=== PATIENT | female | born 1990 | race African-American/Black ===

== ENCOUNTER 2022-06-17 01:48 | Emergency (ER) | payer SELFPAY ==
--- OUTSIDE RECORDS SUMMARY | 2022-06-17 02:41 | XMS REPORT | Continuity of Care Document ---
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 mg tablet 00 :00 total) by mouth 2 (two) times a day. 500 mg twice a day No known 2020-0 No No known [facility] medications 07-06 medication He alth 13:04: s 42 No known 2020-0 No No known [facility] 07-06 medication [facility] alth 13:04: s 42 No known 2020-0 No No known [facility] 07-06 medication [facility] alth 13:04: s 42 No known 2020-0 No No known [facility] 07-06 medication [facility] alth 13:04: s 42 No known 2020-0 No No known [facility] 07-06 medication [facility] alth 13:04: s 42 No known 2020-0 No No known [facility] medications 07-06 medication He alth 13:04: s 42 methylPREDN 2020-0 Yes 3040 40mg [facility] ISolone 07-06 Health acetate 05:00: (DEPO-Medro 00 l) injection 40 mg methylPREDN 2020-0 Yes 3040 40mg [facility] ISolone 07-06 Health acetate 05:00: (DEPO-Medro 00 l) injection 40 mg levETIRAcet 2020-0 Yes 500 mg [facility] am (Keppra) 06-26 twice a Healt [facility] 1000 MG 00:00: day tablet 00 levETIRAcet 2020-0 2021- No 500 mg [facility] am (Keppra) 06-26-15 twice a Heal th 1000 MG 00:00: 00:00 day tablet 00 :00 lisinopril Yes 40mg QD Take 40 mg U T 40 MG 7-08 by mouth 1 Health tablet 00:00: (one) time 00 each day. lisinopril Yes 40mg QD Take 40 mg U T 40 MG 7-08 by mouth 1 Health tablet 00:00: (one) time 00 each day. melatonin Yes 10 mg = 1 Mem oria 10 mg oral 6-20 tab, PO, l tablet 23:06: Bedtime, X Yani nn day, # 30 tab, 1 Refill(s), Pharmacy: [facility] #[id number], 167.64, cm, 04/28/21 0:36:00 CDT, Height, 48, kg, 04/28/21 0:36:00 CDT, Weight melatonin Yes 10 mg = 1 Mem oria 10 mg oral 6-20 tab, PO, l tablet 23:06: Bedtime, X Yani nn day, # 30 tab, 1 Refill(s), Pharmacy: [facility] #[id number], 167.64, cm, 04/28/21 0:36:00 CDT, Height, 48, kg, 04/28/21 0:36:00 CDT, Weight tramadol No Notes: Not Mem oria hydrochlori 6-20 to exceed l de 50 MG 03:47: 400mg/day. Her agudelo Oral Tablet 00 (Same As: Ultram) tramadol No Notes: Not Mem oria hydrochlori 6-20 to exceed l de 50 MG 03:47: 400mg/day. Her agudelo Oral Tablet 00 (Same As: Ultram) heparin No 10,000 Memoria 6-19 unit, 10 l 23:35: mL, Route: [place] 00 DIALYSIS, Drug form: INJ, ONCALL, Dosing Weight 48, kg, PRN Dialysis, Start date: 04/28/21 18:35:00 CDT, Duration: 1 doses or times, Stop date: Limited # of times, 0 heparin No 10,000 Memoria 6-19 unit, 10 l 23:35: mL, Route: [place] 00 DIALYSIS, Drug form: INJ, ONCALL, Dosing Weight 48, kg, PRN Dialysis, Start date: 04/28/21 18:35:00 CDT, Duration: 1 doses or times, Stop date: Limited # of times, 0 Reglan No Notes: Memoria 6-19 (Same as: l 17:48: Reglan) Reglan No Notes: Memoria 6-19 (Same as: l 17:48: Reglan) Saline No Notes: Memoria Flush 0.9% 6-19 Same as: l 14:00: BD Posiflush Sterile Aspirin No Notes: Memoria 6-19 Take with l 14:00: food. Levetiracet No Notes: Rui jessa am 1000 MG 6-19 (Same l Oral Tablet 14:00: as:Keppra) [Keppra] Lisinopril No Notes: Memor ia 6-19 (Same as: l 14:00: Prinivil) metoprolol No Notes: Memor ia tartrate 6-19 (Same as: l 14:00: Lopressor) Saline No Notes: Memoria Flush 0.9% 6-19 Same as: l 14:00: BD Posiflush Sterile Aspirin No Notes: Memoria 6-19 Take with l 14:00: food. Levetiracet No Notes: Rui jessa am 1000 MG 6-19 (Same l Oral Tablet 14:00: as:Keppra) [Keppra] Lisinopril No Notes: Memor ia 6-19 (Same as: l 14:00: Prinivil) metoprolol No Notes: Memor ia tartrate 6-19 (Same as: l 14:00: Lopressor) Hydralazine No Notes: Rui jessa Hydrochlori 6-19 (Same as: l de 50 MG 13:00: Apresoline Her agudelo Oral Tablet 00 ) May interfere w/enteral feedings Take With Food. sevelamer No Notes: Memori a 6-19 Same as: l 13:00: Renvela [place] 00 Aspirin No Notes: Memoria - Take with l 13:00: food. Hydralazine No Notes: Rui jessa Hydrochlori 04-28 (Same as: l de 50 MG 13:00: Apresoline Her agudelo Oral Tablet ) May interfere w/enteral feedings Take With Food. sevelamer No Notes: Memori a 04-28 Same as: l 13:00: Renvela [place] 00 Aspirin No Notes: Memoria - Take with l 13:00: food. Nitroglycer No Notes: Rui jessa in 04-28 (Same l 10:28: as:Nitroqu [place] 00 ick, Nitrostat) "Do Not Crush" Sublingual tablet Saline No Notes: Memoria Flush 0.9% 04-28 Same as: l 10:28: BD Posiflush Sterile Nitroglycer No Notes: Rui jessa in 04-28 (Same l 10:28: as:Nitroqu [place] 00 ick, Nitrostat) "Do Not Crush" Sublingual tablet Saline No Notes: Memoria Flush 0.9% 04-28 Same as: l 10:28: BD [place] 00 Posiflush Sterile Morphine No Notes: Memoria 04-28 (Same l 05:48: as:MORPhin [place] 00 e Sulfate) Zofran No Notes: Memoria 04-28 (Same as: l 05:48: Zofran) MEDICATION WASTE Product Size: 4 mg Product Wasted: ___ mg Morphine No Notes: Memoria - (Same l 05:48: as:MORPhin [place] 00 e Sulfate) Zofran No Notes: Memoria - (Same as: l 05:48: Zofran) MEDICATION WASTE Product Size: 4 mg Product Wasted: ___ mg Multiple Yes 1{tbl} QD Take 1 [facility] Vitamins-Mi 6-14 tablet by [facility] nerals 00:00: mouth 1 ([facility]-D 00 (one) time ) tablet each day. Multiple Yes 1{tbl} QD Take 1 [facility] Vitamins-Mi 6-14 tablet by [facility] nerals 00:00: mouth 1 ([facility]-D 00 (one) time ) tablet each day. lisinopril Yes 2.5 mg = 1 M emoria 2.5 mg oral 5-29 tab, PO, l tablet 14:45: Daily, # [place] 00 30 tab, 0 Refill(s), Pharmacy: [facility] #[id number], 167.64, cm, 03/31/21 18:40:00 CDT, Height, 53, kg, 03/31/21 7:05:00 CDT, Weight lisinopril Yes 2.5 mg = 1 M emoria 2.5 mg oral 5-29 tab, PO, l tablet 14:45: Daily, # [place] 00 30 tab, 0 Refill(s), Pharmacy: [facility] #[id number], 167.64, cm, 03/31/21 18:40:00 CDT, Height, 53, kg, 03/31/21 7:05:00 CDT, Weight Lisinopril No Notes: Memor ia 5-29 (Same as: l 14:00: Prinivil) Lisinopril No Notes: Memor ia 5-29 (Same as: l 14:00: Prinivil) heparin No 10,000 Memoria 5-29 unit, 10 l 13:32: mL, Route: [place] 00 DIALYSIS, Drug form: INJ, ONCALL, Dosing Weight 53, kg, PRN Dialysis, Priority: STAT, Start date: 04/07/21 8:32:00 CDT, Duration: 1 doses or times, Stop date: Limited # of times, 0 heparin No 10,000 Memoria 5-29 unit, 10 l 13:32: mL, Route: DIALYSIS, Drug form: INJ, ONCALL, Dosing Weight 53, kg, PRN Dialysis, Priority: STAT, Start date: 04/07/21 8:32:00 CDT, Duration: 1 doses or times, Stop date: Limited # of times, 0 vancomycin Yes 125 mg = Mem oria 50 mg/mL 5-28 2.5 mL, l oral liquid 18:31: PO, Mikhail n 00 [id number], X 13 day, # 130 mL, 0 Refill(s), Pharmacy: [facility] #[id number], 167.64, cm, 03/31/21 18:40:00 CDT, Height, 53, kg, 03/31/21 7:05:00 CDT, Weight sevelamer Yes 1.6 gm = 2 Me moria carbonate 5-28 packet, l 26.7 MG/ML 18:31: PO, [place] Oral 00 TID-Meals, Suspension , # 180 packet, 0 Refill(s), Pharmacy: [facility] #[id number], 167.64, cm, 03/31/21 18:40:00 CDT, Height, 53, kg, 03/31/21.. . vancomycin Yes 125 mg = Mem oria 50 mg/mL 5-28 2.5 mL, l oral liquid 18:31: PO, Mikhail n 00 ABXQ6H, X 13 day, # 130 mL, 0 Refill(s), Pharmacy: [facility] #[id number], 167.64, cm, 03/31/21 18:40:00 CDT, Height, 53, kg, 03/31/21 7:05:00 CDT, Weight sevelamer Yes 1.6 gm = 2 Me moria carbonate 5-28 packet, l 26.7 MG/ML 18:31: PO, [place] Oral 00 TID-Meals, Suspension , # 180 packet, 0 Refill(s), [id number], 167.64, cm, 03/31/21 18:40:00 CDT, Height, 53, kg, 03/31/21.. . heparin No 10,000 Memoria 5-28 unit, 10 l 17:28: mL, Route: [place] DIALYSIS, Drug form: INJ, ONCALL, Dosing Weight 53, kg, PRN Dialysis, Start date: 04/06/21 12:28:00 CDT, Duration: 1 doses or times, Stop date: Limited # of times, 0 heparin No 10,000 Memoria 5-28 unit, 10 l 17:28: mL, Route: [place] DIALYSIS, Drug form: INJ, ONCALL, Dosing Weight 53, kg, PRN Dialysis, Start date: 04/06/21 12:28:00 CDT, Duration: 1 doses or times, Stop date: Limited # of times, 0 Vancomycin No Notes: Memor ia 5-27 TIME l 05:00: CRITICAL MEDICATION "DILUTE EACH DOSE WITH 30ML OF WATER OR APPLE/JUS GE JUICE PRIOR TO ADMINISTRA TION" Vancomycin No Notes: Memor ia 5-27 TIME l 05:00: CRITICAL MEDICATION "DILUTE EACH DOSE WITH 30ML OF WATER OR APPLE/JUS GE JUICE PRIOR TO ADMINISTRA TION" Lactobacill No Notes: Rui jessa us casei 5-27 Same as l [facility]nos[facility] No Notes: Rui jessa us casei 5-27 Same as l rhamnosus 02:[facility] 12 HR No Notes: Memoria Dextrometho 5-26 (Same as: l rphan 22:00: Guaifenex [place] Hydrobromid 00 DM) "Do e 60 MG / Not Crush" Guaifenesin 1200 MG Extended Release Tablet Lactobacill No 1 tab, Rui jessa us 04-04 Route: PO, l acidophilus 22:00: Drug Form: [place] 00 TAB, Dosing Weight 53, kg, BID, Start date: 04/04/21 17:00:00 CDT, Duration: 30 day, Stop date: 05/04/21 9:00:00 CDT 12 HR No Notes: Memoria Dextrometho - (Same as: l rphan 22:00: Guaifenex [place] Hydrobromid 00 DM) "Do e 60 MG / Not Crush" Guaifenesin 1200 MG Extended Release Tablet Lactobacill No 1 tab, Rui jessa us 04-04 Route: PO, l acidophilus 22:00: Drug Form: [place] 00 TAB, Dosing Weight 53, kg, BID, Start date: 04/04/21 17:00:00 CDT, Duration: 30 day, Stop date: 05/04/21 9:00:00 CDT heparin No Notes: Memoria sodium, -26 porcine l porcine 21:00: heparin [place] 2500 UNT/ML 00 Injectable Solution heparin No Notes: Memoria sodium, 5-26 porcine l porcine 21:00: heparin [place] 2500 UNT/ML 00 Injectable Solution Epogen No Notes: Memoria - (Same as: l 14:00: Retacrit) epoetin sandra-epbx 3,000 unit/1ml VL. For dialysis use only. WASTE: F/P - Red; E Red MEDICATION WASTE Product Size: 3,000 unit Product Waste: unit cefepime No Notes: Memoria -26 (Same As: l 14:00: Maxipime) [place] 00 MEDICATION WASTE Product Size: 1000 mg Product Wasted: ___ mg Epogen No Notes: Memoria -26 (Same as: l 14:00: Retacrit) epoetin sandra-epbx 3,000 unit/1ml VL. For dialysis use only. WASTE: F/P - Red; E Red MEDICATION WASTE Product Size: 3,000 unit Product Waste: unit cefepime No Notes: Memoria 5-26 (Same As: l 14:00: Maxipime) MEDICATION WASTE Product Size: 1000 mg Product Wasted: ___ mg Labetalol No Notes: Memori a 5-26 (Same as: l 10:55: Normodyne, [place] 00 Trandate) Push over 2 minutes Give bolus over 2-3 minutes. Labetalol No Notes: Memori a 5-26 (Same as: l 10:55: Normodyne, [place] 00 Trandate) Push over 2 minutes Give bolus over 2-3 minutes. Saline No Notes: Memoria Flush 0.9% 5-26 Same as: l 02:00: BD Posiflush Sterile Saline No Notes: Memoria Flush 0.9% 5-26 Same as: l 02:00: BD Posiflush Sterile Ondansetron No Notes: Rui jessa 5-25 (Same as: l 20:31: Zofran) MEDICATION WASTE Product Size: 4 mg Product Wasted: ___ mg Acetaminoph No Notes: Do M emoria en 5-25 not exceed l 20:31: 4 gm/day. (Same as: Tylenol) acetaminoph No Notes: Do M emoria en-codeine 5-25 not exceed l #3 20:31: 4gm/day of acetaminop hen. (Same as: Tylenol with Codeine # 3) Saline No Notes: Memoria Flush 0.9% 5-25 Same as: l 20:31: BD [place] 00 Posiflush Sterile Ondansetron No Notes: Rui jessa 5-25 (Same as: l 20:31: Zofran) MEDICATION WASTE Product Size: 4 mg Product Wasted: ___ mg Acetaminoph No Notes: Do M emoria en 5-25 not exceed l 20:31: 4 gm/day. (Same as: Tylenol) acetaminoph No Notes: Do M emoria en-codeine 5-25 not exceed l #3 20:31: 4gm/day of acetaminop hen. (Same as: Tylenol with Codeine # 3) Saline No Notes: Memoria Flush 0.9% 5-25 Same as: l 20:31: BD Posiflush Sterile Fentanyl No Route: IV, Mem oria 5-25 ONCE, l 17:46: Dosing Weight 53, kg, Start date: 04/03/21 12:46:00 CDT, Stop date: 04/03/21 12:46:00 CDT Fentanyl No Route: IV, Mem oria 5-25 ONCE, l 17:46: Dosing Weight 53, kg, Start date: 04/03/21 12:46:00 CDT, Stop date: 04/03/21 12:46:00 CDT heparin No 10,000 Memoria 5-25 unit, 10 l 17:00: mL, Route: DIALYSIS, Drug form: INJ, ONCALL, Dosing Weight 53, kg, Start date: 04/03/21 12:00:00 CDT, Duration: 1 doses or times, 0 heparin No 10,000 Memoria 5-25 unit, 10 l 17:00: mL, Route: DIALYSIS, Drug form: INJ, ONCALL, Dosing Weight 53, kg, Start date: 04/03/21 12:00:00 CDT, Duration: 1 doses or times, 0 Sodium 2020-0 No 1,000 mL, Memori a Chloride 5-25 1,000 l 0.9% 16:14: ml/hr, [place] (Bolus) IV 00 Infuse Over: 1 hr, Route: IV, 1,000, Drug form: INJ, PRN, Priority: STAT, Dosing Weight 53 kg, Start date: 04/03/21 11:14:00 CDT, Duration: 30 day, Stop date: 05/03/21 11:13:00 CDT, PRN Dialysis, 0 Sodium 2020-0 No 1,000 mL, Memori a Chloride 5-25 1,000 l 0.9% 16:14: ml/hr, [place] (Bolus) IV 00 Infuse Over: 1 hr, Route: IV, 1,000, Drug form: INJ, PRN, Priority: STAT, Dosing Weight 53 kg, Start date: 04/03/21 11:14:00 CDT, Duration: 30 day, Stop date: 05/03/21 11:13:00 CDT, PRN Dialysis, 0 Renvela No Notes: Memoria 5-25 Same as: l 13:00: Renvela [place] 00 Renvela No Notes: Memoria 5-25 Same as: l 13:00: Renvela [place] 00 Labetalol No Notes: Memori a 5-25 (Same as: l 11:25: Normodyne, [place] 00 Trandate) Push over 2 minutes Give bolus over 2-3 minutes. Labetalol No Notes: Memori a 5-25 (Same as: l 11:25: Normodyne, [place] 00 Trandate) Push over 2 minutes Give bolus over 2-3 minutes. Morphine No 2 mg, 1 Memori a 5-24 mL, Route: l 23:49: IVP, Drug [place] 00 form: SOLN, Q4H, Dosing Weight 53, kg, PRN Pain Score 7-10, Start date: 04/02/21 18:49:00 CDT, Duration: 30 day, Stop date: 05/02/21 18:48:00 CDT, 0 Morphine No 2 mg, 1 Memori a 5-24 mL, Route: l 23:49: IVP, Drug form: SOLN, Q4H, Dosing Weight 53, kg, PRN Pain Score 7-10, Start date: 04/02/21 18:49:00 CDT, Duration: 30 day, Stop date: 05/02/21 18:48:00 CDT, 0 Aspirin No Notes: Do Memor ia 5-24 not crush l 14:00: or chew. [place] 00 (Same As: Ecotrin) Aspirin No Notes: Do Memor ia 5-24 not crush l 14:00: or chew. [place] 00 (Same As: Ecotrin) Heparin - No Notes: Memori a one time 5-24 porcine l bolus for 04:33: heparin Yani nn ACS 00 Heparin 60 No Route: Memor ia unit/kg 5-24 IVP, PRN, l Bolus 04:33: 2,900 [place] (Heparin 00 unit, 2.9 Dosing mL, Drug Weight) form: INJ, PRN Heparin Protocol, Start date: 04/01/21 23:33:00 CDT, Stop date: 05/01/21 23:32:00 CDT, 30 day, 0 Heparin 30 No Route: Memor ia unit/kg 5-24 IVP, PRN, l Bolus 04:33: 1,400 [place] (Heparin 00 unit, 1.4 Dosing mL, Drug Weight) form: INJ, PRN Heparin Protocol, Start date: 04/01/21 23:33:00 CDT, Stop date: 05/01/21 23:32:00 CDT, 30 day, 0 heparin No Notes: Memoria additive 5-24 Total l 25,000 unit 04:33: Concentrat [place] [12 00 ion = 50 unit/kg/hr] unit/ ml + Premix Total Diluent volume = Sodium 500 ml Chloride Send Med 0.45% 500 Request 2 mL hours prior to next bag Heparin - No Notes: Memori a one time 5-24 porcine l bolus for 04:33: heparin Yani nn ACS 00 Heparin 60 No Route: Memor ia unit/kg 5-24 IVP, PRN, l Bolus 04:33: 2,900 [place] (Heparin 00 unit, 2.9 Dosing mL, Drug Weight) form: INJ, PRN Heparin Protocol, Start date: 04/01/21 23:33:00 CDT, Stop date: 05/01/21 23:32:00 CDT, 30 day, 0 Heparin No Route: Memor ia unit/kg 5-24 IVP, PRN, l Bolus 04:33: 1,400 [place] (Heparin 00 unit, 1.4 Dosing mL, Drug Weight) form: INJ, PRN Heparin Protocol, Start date: 04/01/21 23:33:00 CDT, Stop date: 05/01/21 23:32:00 CDT, 30 day, 0 heparin No Notes: Memoria additive 5-24 Total l 25,000 unit 04:33: Concentrat [place] [12 00 ion = 50 unit/kg/hr] unit/ ml + Premix Total Diluent volume = Sodium 500 ml Chloride Send Med 0.45% 500 Request 2 mL hours prior to next bag Aspirin 325 No Notes: Rui jessa MG Oral 5-24 Take with l Tablet 02:24: food. Aspirin 325 No Notes: Rui jessa MG Oral 5-24 Take with l Tablet 02:24: food. metoprolol No Notes: Memor ia tartrate 5-24 (Same as: l 02:00: Lopressor) metoprolol No Notes: Memor ia tartrate 5-24 (Same as: l 02:00: Lopressor) Nitroglycer No Notes: Rui jessa in 0.4 MG 5-24 (Same l Sublingual 01:32: as:Nitroqu H [place] Tablet 00 ick, Nitrostat) "Do Not Crush" Sublingual tablet Nitroglycer No Notes: Rui jessa in 0.4 MG 5-24 (Same l Sublingual 01:32: as:Nitroqu H ermann Tablet 00 ick, Nitrostat) "Do Not Crush" Sublingual tablet Hydralazine No Notes: Rui jessa Hydrochlori 5-23 (Same as: l de 25 MG 18:00: Apresoline Her agudelo Oral Tablet 00 ) May interfere w/enteral feedings Take With Food Hydralazine No Notes: Rui jessa Hydrochlori 5-23 (Same as: l de 25 MG 18:00: Apresoline Her agudelo Oral Tablet 00 ) May interfere w/enteral feedings Take With Food cefdinir No Notes: Memoria 5-23 (Same As: l 15:00: Omnicef) cefdinir No Notes: Memoria 5-23 (Same As: l 15:00: Omnicef) Levetiracet 2021-0 No 1,000 mg, M emoria am 1000 MG 5-23 Route: PO, l Oral Tablet 14:07: Drug form: [place] [Keppra] 00 TAB, Q12H, Dosing Weight 53, kg, Start date: 04/01/21 9:07:00 CDT, Duration: 30 day, Stop date: 05/01/21 9:00:00 CDT Levetiracet No 1,000 mg, M emoria am 1000 MG 5-23 Route: PO, l Oral Tablet 14:07: Drug form: [place] [Keppra] 00 TAB, Q12H, Dosing Weight 53, kg, Start date: 04/01/21 9:07:00 CDT, Duration: 30 day, Stop date: 05/01/21 9:00:00 CDT Zofran No Notes: Memoria 5-22 (Same as: l 23:31: Zofran) [place] 00 MEDICATION WASTE Product Size: 4 mg Product Wasted: ___ mg Zofran No Notes: Memoria 5-22 (Same as: l 23:31: Zofran) [place] 00 MEDICATION WASTE Product Size: 4 mg Product Wasted: ___ mg ocular No Notes: Memoria lubricant 5-22 (Same as: l 17:00: Lacri-Lube [place] 00 , Puralube, Duratears Naturale, Artificial Tears, and Tears Again ) ocular No Notes: Memoria lubricant 5-22 (Same as: l 17:00: Lacri-Lube [place] 00 , Puralube, Duratears Naturale, Artificial Tears, and Tears Again ) Saline No Notes: Memoria Flush 0.9% 5-22 Same as: l 14:00: BD [place] 00 Posiflush Sterile chlorhexidi No Notes: Rui jessa ne 5-22 (Same As: l gluconate 14:00: Peridex) Herm nancy 1.2 MG/ML 00 Mouthwash Saline No Notes: Memoria Flush 0.9% 5-22 Same as: l 14:00: BD [place] 00 Posiflush Sterile chlorhexidi No Notes: Rui jessa ne 5-22 (Same As: l gluconate 14:00: Peridex) Herm nancy 1.2 MG/ML 00 Mouthwash Famotidine No Notes: Memor ia 5-22 (Same as: l 13:00: Pepcid) [place] 00 Can be dilute in 5-10cc NS IVP: Slow IV push over at least 2 minutes. cefepime 0 No 1 gm, Memoria 5-22 Route: l 13:00: IVPB, [place] 00 [id number], Dosing Weight 53, kg, (CrCl <10 ml/min or IHD), Start date: 03/31/21 8:00:00 CDT, Duration: 5 day, Stop date: 04/04/21 8:00:00 CDT, ABX Indication : ED - Suspected Sepsis heparin 0 No 10,000 Memoria 5-22 unit, 10 l 13:00: mL, Route: [place] 00 DIALYSIS, Drug form: INJ, ONCALL, Dosing Weight 53, kg, Start date: 03/31/21 8:00:00 CDT, Duration: 1 doses or times, 0 Famotidine No Notes: Memor ia 5-22 (Same as: l 13:00: Pepcid) [place] 00 Can be dilute in 5-10cc NS IVP: Slow IV push over at least 2 minutes. cefepime 0 No 1 gm, Memoria 5-22 Route: l 13:00: IVPB, [place] 00 [id number], Dosing Weight 53, kg, (CrCl <10 ml/min or IHD), Start date: 03/31/21 8:00:00 CDT, Duration: 5 day, Stop date: 04/04/21 8:00:00 CDT, ABX Indication : ED - Suspected Sepsis heparin 2020-0 No 10,000 Memoria 5-22 unit, 10 l 13:00: mL, Route: [place] 00 DIALYSIS, Drug form: INJ, ONCALL, Dosing Weight 53, kg, Start date: 03/31/21 8:00:00 CDT, Duration: 1 doses or times, 0 Sodium 2020-0 No 2,000 mL, Memori a Chloride 5-22 Rate: 500 l 0.9% IV 12:42: ml/hr, [place] 2,000 mL 00 Infuse over: 4 hr, Route: IV, Dosing Weight 53 kg, Total Volume: 2,000, Start date: 03/31/21 7:42:00 CDT, Duration: 30 day, Stop date: 04/30/21 7:41:00 CDT, 1.58, m2, 0 albumin No Notes: Lot Rui germain human 25% 5-22 #: l intravenous 12:42: [place] solution 00 ___ Mfg: (Same as: Plasbumin- 25) "blood product derivative " WASTE: F/P - Red; E -Red MEDICATION WASTE Product Size: 25 gm Product Wasted: ___ gm Mannitol No Notes: Memoria 250 MG/ML 5-22 (Same as: l Injectable 12:42: Osmitrol) rmann Solution 00 Infuse through 5 micron or smaller filter WASTE: F/P - Sink; E - Municipal Trash Bin Sodium No 2,000 mL, Memori a Chloride 5-22 Rate: 500 l 0.9% IV 12:42: ml/hr, [place] 2,000 mL 00 Infuse over: 4 hr, Route: IV, Dosing Weight 53 kg, Total Volume: 2,000, Start date: 03/31/21 7:42:00 CDT, Duration: 30 day, Stop date: 04/30/21 7:41:00 CDT, 1.58, m2, 0 albumin No Notes: Lot Rui jessa human 25% 5-22 #: l intravenous 12:42: [place] solution 00 ___ Mfg: (Same as: Plasbumin- 25) "blood product derivative " WASTE: F/P - Red; E -Red MEDICATION WASTE Product Size: 25 gm Product Wasted: ___ gm Mannitol No Notes: Memoria 250 MG/ML 5-22 (Same as: l Injectable 12:42: Osmitrol) He rmann Solution 00 Infuse through 5 micron or smaller filter WASTE: F/P - Sink; E - Municipal Trash Bin Vancomycin No PHARMACY Mem oria 5-22 USE ONLY, l 12:09: Route: [place]o 06 MISC, PRN, Drug form: MISC, PRN Other -See Comment, Start date: 03/31/21 7:09:06 CDT, Stop date: 04/30/21 7:09:06 CDT, 30 day Vancomycin No PHARMACY Mem oria 5-22 USE ONLY, l 12:09: Route: [place] 06 MISC, PRN, Drug form: MISC, PRN Other -See Comment, Start date: 03/31/21 7:09:06 CDT, Stop date: 04/30/21 7:09:06 CDT, 30 day chlorhexidi No Notes: Rui jessa ne - (Same As: l gluconate 11:58: Peridex) Herm nancy 1.2 MG/ML 00 Mouthwash chlorhexidi No Notes: Rui jessa ne - (Same As: l gluconate 11:58: Peridex) Herm nancy 1.2 MG/ML 00 Mouthwash Fentanyl No Notes: Memoria - Concentrat l 11:47: ion: 5 Juancho 00 microgram / ml Fentanyl No Notes: Memoria - Concentrat l 11:47: ion: 5 Juancho 00 microgram / ml Succinylcho No Notes: Rui jessa line - (Same As: l 11:15: Anectine) Juancho 00 propofol No Notes: If M emoria mg/mL 03-31 Diprivan - l (Titrate.) 11:15: change Yani nn IV 1,000 mg 00 bottle & tubing every 12 hr Per state nursing law propofol can only be given by a nurse if patient is intubated or being intubated (unless the nurse is a DISTILLERY WORKER). Same as: Diprivan Succinylcho No Notes: Rui jessa line -22 (Same As: l 11:15: Anectine) [place] 00 propofol No Notes: If M emoria mg/mL 03-31 Diprivan - l (Titrate.) 11:15: change Yani nn IV 1,000 mg 00 bottle & tubing every 12 hr Per state nursing law propofol can only be given by a nurse if patient is intubated or being intubated (unless the nurse is a [employer]ILL[employer] WORKER). Same as: Diprivan Propofol No Notes: If Rui jessa - Diprivan - l 11:11: change [place] 00 bottle & tubing every 12 hr Per state nursing law propofol can only be given by a nurse if patient is intubated or being intubated (unless the nurse is a DISTILLERY WORKER). Same as: Diprivan Etomidate No Notes: Memori a 03-31 (Same as: l 11:11: Amidate). [place] 00 Per state nursing law etomidate can only be given by a nurse if patient is intubated or being intubated (unless the nurse is a DISTILLERY WORKER). Propofol No Notes: If Rui jessa - Diprivan - l 11:11: change [place] 00 bottle & tubing every 12 hr Per state nursing law propofol can only be given by a nurse if patient is intubated or being intubated (unless the nurse is a DISTILLERY WORKER). Same as: Diprivan Etomidate No Notes: Memori a - (Same as: l 11:11: Amidate). [place] 00 Per state nursing law etomidate can only be given by a nurse if patient is intubated or being intubated (unless the nurse is a DISTILLERY WORKER). Lasix No Notes: Memoria - (Same as: l 10:33: Lasix) [place] 00 MEDICATION WASTE Product Size: 100 mg Product Wasted: ___ mg Dexmedetomi No Notes: Use Memoria dine - the l 10:33: following [place] 00 cdm for [id number]. Lasix No Notes: Memoria - (Same as: l 10:33: Lasix) [place] 00 MEDICATION WASTE Product Size: 100 mg Product Wasted: ___ mg Dexmedetomi No Notes: Use Memoria dine 5-22 the l 10:33: following [place] 00 cdm for [id number]. Ipratropium No Notes: SEE Memoria 03-31 RT l 10:20: DOCUMENTAT [place] 00 ION (Same as:Atroven t) Ipratropium No Notes: SEE Memoria 03-31 RT l 10:20: DOCUMENTAT [place] 00 ION (Same as:Atroven t) Zofran No 4 mg, Memoria 03-31 Route: l 09:59: IVP, Drug [place] 00 form: INJ, ONCE, Dosing Weight 53, kg, Start date: 03/31/21 4:59:00 CDT, Stop date: 03/31/21 4:59:00 CDT Zofran No 4 mg, Memoria 03-31 Route: l 09:59: IVP, Drug [place] 00 form: INJ, ONCE, Dosing Weight 53, kg, Start date: 03/31/21 4:59:00 CDT, Stop date: 03/31/21 4:59:00 CDT Nystatin No Notes: Memoria 100 UNT/MG -22 (Same l Topical 09:34: as:Mycosta Herm nancy Powder 00 tin, Nilstat) For external use only. Acetaminoph No Notes: Do M emoria en 03-31 not exceed l 09:34: 4 gm/day. [place] 00 (Same as: Tylenol) Albuterol No Notes: Memori a 0.833 MG/ML 03-31 (Same as: l / 09:34: Duoneb) [place] Ipratropium 00 Parker 0.167 MG/ML Inhalant Solution Saline No Notes: Memoria Flush 0.9% - Same as: l 09:34: BD [place] 00 Posiflush Sterile Nystatin No Notes: Memoria 100 UNT/MG 5-22 (Same l Topical 09:34: as:Mycosta Herm nancy Powder 00 tin, Nilstat) For external use only. Acetaminoph No Notes: Do M emoria en - not exceed l 09:34: 4 gm/day. [place] 00 (Same as: Tylenol) Albuterol No Notes: Memori a 0.833 MG/ML 03-31 (Same as: 09:34: Duoneb) [place] Ipratropium 00 Parker 0.167 MG/ML Inhalant Solution Saline No Notes: Memoria Flush 0.9% 03-31 Same as: 09:34: BD [place] 00 Posiflush Sterile Levaquin No Notes: Memoria 03-31 (Same l 09:07: as:Levaqui [place] 00 n) Levaquin No Notes: Memoria 03-31 (Same l 09:07: as:Levaqui [place] 00 n) Zosyn No Notes: Memoria 03-31 (Same as: 09:05: Zosyn) [place] 00 Dosing based on Piperacill in component MEDICATION WASTE Product Size: 3375 mg Product Wasted: ___ mg Zosyn No Notes: Memoria 03-31 (Same as: 09:05: Zosyn) [place] 00 Dosing based on Piperacill in component MEDICATION WASTE Product Size: 3375 mg Product Wasted: ___ mg homatropine No Notes: Rui jessa / 03-31 (Same as: l Hydrocodone 08:50: Husam Calix [facility] 00 Hydromet) homatropine No Notes: Rui jessa / 03-31 (Same as: l Hydrocodone 08:50: Husam Calix [facility] Hydromet) Tylenol No 5 mL, Memoria with 03-31 Route: PO, l Codeine 120 08:32: Dosing Herm nancy mg-12 mg/5 00 Weight 53, mL oral kg, ONCE, liquid STAT, Start date: 03/31/21 3:32:00 CDT, Stop date: 03/31/21 3:32:00 CDT 12 HR No 5 mL, Memoria Chlorphenir 03-31 Route: PO, l amine 08:32: Dosing [place] Maleate 1.6 00 Weight 53, MG/ML / kg, ONCE, Hydrocodone Start Bitartrate date: 2 MG/ML 03/31/21 Extended 3:32:00 Release CDT, Stop Suspension date: [Tussionex 03/31/21 [facility] 3:32:00 ER] CDT Tylenol 0 No 5 mL, Memoria with 03-31 Route: PO, l Codeine 120 08:32: Dosing Herm nancy mg-12 mg/5 00 Weight 53, mL oral kg, ONCE, liquid STAT, Start date: 03/31/21 3:32:00 CDT, Stop date: 03/31/21 3:32:00 CDT 12 HR No 5 mL, Memoria Chlorphenir 03-31 Route: PO, l amine 08:32: Dosing [place] Maleate 1.6 00 Weight 53, MG/ML / kg, ONCE, Hydrocodone Start Bitartrate date: 2 MG/ML 03/31/21 Extended 3:32:00 Release CDT, Stop Suspension date: [Tussionex 03/31/21 [facility] 3:32:00 ER] CDT Zofran 0 No 4 mg, Memoria 03-31 Route: l 08:29: IVP, Drug [place] 00 form: INJ, ONCE, Dosing Weight 53, kg, Priority: STAT, Start date: 03/31/21 3:29:00 CDT, Stop date: 03/31/21 3:29:00 CDT Zofran 0 No 4 mg, Memoria 03-31 Route: l 08:29: IVP, Drug [place] 00 form: INJ, ONCE, Dosing Weight 53, kg, Priority: STAT, Start date: 03/31/21 3:29:00 CDT, Stop date: 03/31/21 3:29:00 CDT Saline 0 No Notes: Memoria Flush 0.9% - Same as: l 07:31: BD [place] 00 Posiflush Sterile Saline No Notes: Memoria Flush 0.9% 5-22 Same as: l 07:31: BD [place] 00 Posiflush Sterile Azithromyci Yes See Ashleyori a n 5 Day 03-30 Instructio l Dose Pack 18:06: ns, Take 2 He rmann 250 mg oral 00 tablets by tablet mouth the first day then 1 tablet by mouth days 2-5., X 5 day, # 6 tab, 0 Refill(s), Pharmacy: [facility] #[id number], 165.1, cm, 03/30/21 7:59:00 CDT, Height, 53.8, kg, 03/30/21 7:59:00 CDT, Weight Levetiracet 0 Yes 1,000 mg = Memoria am 1000 MG - 1 tab, PO, l Oral Tablet 18:06: BID, # 60 H ermann [Keppra] 00 tab, 0 Refill(s), Pharmacy: [facility] #[id number], 165.1, cm, 03/30/21 7:59:00 CDT, Height, 53.8, kg, 03/30/21 7:59:00 CDT, Weight predniSONE Yes 20 mg = 1 Me moria 20 mg oral -21 tab, PO, l tablet 18:06: Daily, X [place] 00 14 day, # 14 tab, 0 Refill(s), Pharmacy: [facility] #[id number], 165.1, cm, 03/30/21 7:59:00 CDT, Height, 53.8, kg, 03/30/21 7:59:00 CDT, Weight Azithromyci Yes See Ashleyori a n 5 Day - Instructio l Dose Pack 18:06: ns, Take 2 He rmann 250 mg oral 00 tablets by tablet mouth the first day then 1 tablet by mouth days 2-5., X 5 day, # 6 tab, 0 Refill(s), [id number], 165.1, cm, 03/30/21 7:59:00 CDT, Height, 53.8, kg, 03/30/21 7:59:00 CDT, Weight Levetiracet Yes 1,000 mg = Memoria am 1000 MG -21 1 tab, PO, l Oral Tablet 18:06: BID, # 60 H ermann [Keppra] 00 tab, 0 Refill(s), [id number], 165.1, cm, 03/30/21 7:59:00 CDT, Height, 53.8, kg, 03/30/21 7:59:00 CDT, Weight predniSONE 2020-0 Yes 20 mg = 1 Me moria 20 mg oral 5-21 tab, PO, l tablet 18:06: Daily, X [place] 00 14 day, # 14 tab, 0 Refill(s), Pharmacy: [facility] #[id number], 165.1, cm, 03/30/21 7:59:00 CDT, Height, 53.8, kg, 03/30/21 7:59:00 CDT, Weight cefdinir 0 Yes 300 mg = 1 Mem oria 300 MG Oral 5-21 cap, PO, l Capsule 18:05: BID, X 10 Yani nn 00 day, # 20 cap, 0 Refill(s), Pharmacy: [facility] #[id number], 165.1, cm, 03/30/21 7:59:00 CDT, Height, 53.8, kg, 03/30/21 7:59:00 CDT, Weight cefdinir 2020-0 Yes 300 mg = 1 Mem oria 300 MG Oral 5-21 cap, PO, l Capsule 18:05: BID, X 10 Yani nn 00 day, # 20 cap, 0 Refill(s), Pharmacy: [facility] #[id number], 165.1, cm, 03/30/21 7:59:00 CDT, Height, 53.8, kg, 03/30/21 7:59:00 CDT, Weight Levofloxaci 2020-0 No 750 mg = 1 Memoria n 750 MG 5-21 tab, PO, l Oral Tablet 16:51: Q24H, X 7 H ermann [Levaquin] 00 day, # 7 tab, 0 Refill(s), [id number], 165.1, cm, 03/30/21 7:59:00 CDT, Height, 53.8, kg, 03/30/21 7:59:00 CDT, Weight Levofloxaci 2020-0 No 750 mg = 1 Memoria n 750 MG 5-21 tab, PO, l Oral Tablet 16:51: Q24H, X 7 H ermann [Levaquin] 00 day, # 7 tab, 0 Refill(s), Pharmacy: [facility] #[id number], 165.1, cm, 03/30/21 7:59:00 CDT, Height, 53.8, kg, 03/30/21 7:59:00 CDT, Weight predniSONE 2021-0 Yes 40 mg = 2 Me moria 20 mg oral 5-06 tab, PO, l tablet 00:48: Daily, [place] 00 Quantity sufficient , X 7 day, # 14 tab, 0 Refill(s), Pharmacy: [facility] #[id number], 167.64, cm, 03/12/21 10:30:00 CDT, Height, 46.818, kg, 03/12/21 1:13:00 CDT, Weight Furosemide 2021-0 Yes 80 mg = 1 Me moria 80 MG Oral 5-06 tab, PO, l Tablet 00:48: BID, # 60 Mikhail n [Lasix] 00 tab, 0 Refill(s), Pharmacy: [facility] #[id number], 167.64, cm, 03/12/21 10:30:00 CDT, Height, 46.818, kg, 03/12/21 1:13:00 CDT, Weight metoprolol 1-0 Yes 25 mg = 1 Me moria tartrate 25 5-06 tab, PO, l mg oral 00:48: Q12H, # 60 Herm nancy tablet 00 tab, 0 Refill(s), Pharmacy: [facility] #[id number], 167.64, cm, 03/12/21 10:30:00 CDT, Height, 46.818, kg, 03/12/21 1:13:00 CDT, Weight predniSONE 2021-0 Yes 40 mg = 2 Me moria 20 mg oral 5-06 tab, PO, l tablet 00:48: Daily, [place] 00 Quantity sufficient , X 7 day, # 14 tab, 0 Refill(s), Pharmacy: [facility] #[id number], 167.64, cm, 03/12/21 10:30:00 CDT, Height, 46.818, kg, 03/12/21 1:13:00 CDT, Weight Furosemide 2021-0 Yes 80 mg = 1 Me moria 80 MG Oral 5-06 tab, PO, l Tablet 00:48: BID, # 60 Mikhail n [Lasix] 00 tab, 0 Refill(s), Pharmacy: [facility] #[id number], 167.64, cm, 03/12/21 10:30:00 CDT, Height, 46.818, kg, 03/12/21 1:13:00 CDT, Weight metoprolol Yes 25 mg = 1 Me moria tartrate 25 5-06 tab, PO, l mg oral 00:48: Q12H, # 60 Herm nancy tablet 00 tab, 0 Refill(s), Pharmacy: [facility] #[id number], 167.64, cm, 03/12/21 10:30:00 CDT, Height, 46.818, kg, 03/12/21 1:13:00 CDT, Weight Epogen No Notes: Memoria 5-05 (Same as: l 14:00: Retacrit) epoetin sandra-epbx 2,000 unit/1ml VL. For dialysis use only WASTE: F/P - Red; E Red MEDICIATIO N WASTE Product Size: 2,000 unit Product Wasted: ____unit Epogen No Notes: Memoria 5-05 (Same as: l 14:00: Retacrit) epoetin sandra-epbx 2,000 unit/1ml VL. For dialysis use only WASTE: F/P - Red; E Red MEDICIATIO N WASTE Product Size: 2,000 unit Product Wasted: ____unit Hydralazine No Notes: Rui jessa 5-05 (Same as: l 08:45: Apresoline ) Push over 5 minutes Hydralazine No Notes: Rui jessa 5-05 (Same as: l 08:45: Apresoline ) Push over 5 minutes metoprolol No Notes: Memor ia tartrate 5-05 (Same as: l 02:00: Lopressor) metoprolol No Notes: Memor ia tartrate 5-05 (Same as: l 02:00: Lopressor) Nasal No Notes: Memoria Saline 5-04 (Same as: l 0.65% 23:00: [employer], [place] solution 00 Deep Sea Nasal [place]). Nasal No Notes: Memoria Saline 5-04 (Same as: l 0.65% 23:00: [employer], [place] solution 00 Deep Sea Nasal [place]). Levetiracet No Notes: Rui jessa am 500 MG 5-04 (Same l Oral Tablet 22:00: as:Keppra) [place] [Keppra] 00 PhosLo No Notes: Memoria Gelcap 5-04 Same as l 22:00: Phoslo Gel [place] 00 Cap Levetiracet No Notes: Rui jessa am 500 MG 5-04 (Same l Oral Tablet 22:00: as:Keppra) [place] [Keppra] 00 PhosLo No Notes: Memoria Gelcap 5-04 Same as l 22:00: Phoslo Gel [place] 00 Cap Tylenol No Notes: Do Memor ia 5-03 not exceed l 16:30: 4 gm/day. (Same as: Tylenol) Tylenol No Notes: Do Memor ia 5-03 not exceed l 16:30: 4 gm/day. [place] 00 (Same as: Tylenol) Aspirin No Notes: Memoria 5-03 Take with l 14:00: food. Levetiracet No Notes: Rui jessa am 500 MG 5-03 (Same l Oral Tablet 14:00: as:Keppra) [place] [Keppra] 00 Saline No Notes: Memoria Flush 0.9% 5-03 (Same as: l 14:00: BD [place] Posiflush) chlorhexidi No Notes: Rui jessa ne 5-03 (Same As: l gluconate 14:00: Peridex) Herm nancy 1.2 MG/ML 00 Mouthwash metoprolol No Notes: Memor ia tartrate 5-03 (Same as: l 14:00: Lopressor) Famotidine No Notes: Memor ia 5-03 (Same as: l 14:00: Pepcid) [place] 00 Can be dilute in 5-10cc NS IVP: Slow IV push over at least 2 minutes. Aspirin No Notes: Memoria 5-03 Take with l 14:00: food. [place] Levetiracet No Notes: Uri jessa am 500 MG 5-03 (Same l Oral Tablet 14:00: as:Keppra) [place] [Keppra] 00 Saline No Notes: Memoria Flush 0.9% 5-03 (Same as: l 14:00: BD [place] 00 Posiflush) chlorhexidi No Notes: Rui jessa ne 5-03 (Same As: l gluconate 14:00: Peridex) Herm nancy 1.2 MG/ML 00 Mouthwash metoprolol No Notes: Memor ia tartrate 5-03 (Same as: l 14:00: Lopressor) Famotidine No Notes: Memor ia 5-03 (Same as: l 14:00: Pepcid) [place] 00 Can be dilute in 5-10cc NS IVP: Slow IV push over at least 2 minutes. heparin No Notes: Memoria 5-03 porcine l 13:00: heparin [place] 00 heparin No Notes: Memoria 5-03 porcine l 13:00: heparin [place] 00 ocular No Notes: Memoria lubricant 5-03 (Same as: l 11:00: Lacri-Lube [place] 00 , Puralube, Duratears Naturale, Artificial Tears, and Tears Again ) ocular No Notes: Memoria lubricant 5-03 (Same as: l 11:00: Lacri-Lube [place] 00 , Puralube, Duratears Naturale, Artificial Tears, and Tears Again ) Flagyl No Notes: Memoria 5-03 (Same as: l 10:00: Flagyl) [place] 00 Avoid alcohol. Flagyl No Notes: Memoria 5-03 (Same as: l 10:00: Flagyl) [place] 00 Avoid alcohol. Vancomycin No 2001 mg: Me moria 5-03 infuse l 07:43: over 2.5 [place] 00 hours For adult patients only: Round to nearest 250 mg per Medical Staff approval MEDICATION WASTE Product Size: 1000 mg Product Wasted: ___ mg Vancomycin No 2000 mg: Me moria 5-03 infuse l 07:43: over 2.5 [place] 00 hours For adult patients only: Round to nearest 250 mg per Medical Staff approval MEDICATION WASTE Product Size: 1000 mg Product Wasted: ___ mg cefepime No Notes: Memoria 5- (Same As: l 07:00: Maxipime) [place] 00 MEDICATION WASTE Product Size: 1000 mg Product Wasted: ___ mg cefepime No Notes: Memoria 5- (Same As: l 07:00: Maxipime) [place] 00 MEDICATION WASTE Product Size: 1000 mg Product Wasted: ___ mg Calcium No Notes: Memoria Gluconate -03 WASTE: F/P l 06:48: - Sink; E [place] 00 - Municipal Trash Bin Calcium No Notes: Memoria Gluconate 5-03 WASTE: F/P l 06:48: - Sink; E [place] 00 - Municipal Trash Bin Vancomycin No Notes: Memor ia 03 Vancomycin l 06:13: Pharmacy [place] 50 Dosing Protocol PHARMAC Y USE ONLY Note: This is not a medication order. This is a consultati on order. Vancomycin No Notes: Memor ia 03 Vancomycin l 06:13: Pharmacy [place] 50 Dosing Protocol PHARMAC Y USE ONLY Note: This is not a medication order. This is a consultati on order. Saline No Notes: Memoria Flush 0.9% 5-03 (Same as: l 05:58: BD [place] 00 Posiflush) Saline No Notes: Memoria Flush 0.9% 5-03 (Same as: l 05:58: BD [place] 00 Posiflush) Hydralazine No 10 mg, Rui jessa 03-12 Route: IV, l 05:50: ONCE, [place] 00 Dosing Weight 46.818, kg, Start date: 03/12/21 0:50:00 CDT, Stop date: 03/12/21 0:50:00 CDT Hydralazine No 10 mg, Rui jessa 5-03 Route: IV, l 05:50: ONCE, Dosing Weight 46.818, kg, Start date: 03/12/21 0:50:00 CDT, Stop date: 03/12/21 0:50:00 CDT Nystatin No Notes: Memoria 100 UNT/MG 5-03 (Same l Topical 05:19: as:Mycosta Herm nancy Powder 00 tin, Nilstat) For external use only. Saline No Notes: Memoria Flush 0.9% 5-03 (Same as: l 05:19: BD [place] 00 Posiflush) Fentanyl No Notes: Memoria 5-03 Concentrat l 05:19: ion: 5 [place] 00 microgram / ml chlorhexidi No Notes: Rui jessa ne 5-03 (Same As: l gluconate 05:19: Peridex) Herm nancy 1.2 MG/ML 00 Mouthwash Nystatin No Notes: Memoria 100 UNT/MG 5-03 (Same l Topical 05:19: as:Mycosta Herm nancy Powder 00 tin, Nilstat) For external use only. Saline No Notes: Memoria Flush 0.9% 5-03 (Same as: l 05:19: BD [place] 00 Posiflush) Fentanyl No Notes: Memoria 5-03 Concentrat l 05:19: ion: 5 [place] 00 microgram / ml chlorhexidi No Notes: Rui jessa ne 5-03 (Same As: l gluconate 05:19: Peridex) Herm nancy 1.2 MG/ML 00 Mouthwash Lasix No Notes: Memoria 5-03 (Same as: l 04:31: Lasix) [place] 00 MEDICATION WASTE Product Size: 40 mg Product Wasted: ___ mg Lasix No Notes: Memoria 5-03 (Same as: l 04:31: Lasix) [place] 00 MEDICATION WASTE Product Size: 40 mg Product Wasted: ___ mg propofol No Notes: If M emoria mg/mL 5-03 Diprivan - l (Titrate.) 04:24: change Yani nn IV 1,000 mg 00 bottle & tubing every 12 hr Per state nursing law propofol can only be given by a nurse if patient is intubated or being intubated (unless the nurse is a DISTILLERY WORKER). Same as: Diprivan Etomidate No Notes: Memori a 5-03 (Same as: l 04:24: Amidate). [place] 00 Per state nursing law etomidate can only be given by a nurse if patient is intubated or being intubated (unless the nurse is a DISTILLERY WORKER). Rocuronium No Notes: Memor ia 5-03 (Same as: l 04:24: Zemuron) [place] 00 propofol No Notes: If M emoria mg/mL 5- Diprivan - l (Titrate.) 04:24: change Yani nn IV 1,000 mg 00 bottle & tubing every 12 hr Per state nursing law propofol can only be given by a nurse if patient is intubated or being intubated (unless the nurse is a DISTILLERY WORKER). Same as: Diprivan Etomidate No Notes: Memori a - (Same as: l 04:24: Amidate). [place] Per state nursing law etomidate can only be given by a nurse if patient is intubated or being intubated (unless the nurse is a DISTILLERY WORKER). Rocuronium No Notes: Memor ia 5-03 (Same as: l 04:24: Zemuron) [place] Ativan No Notes: Memoria 5-03 (Same as: l 03:54: Ativan) [place] Ativan No Notes: Memoria 5-03 (Same as: l 03:54: Ativan) [place] 00 Zofran No 4 mg, Memoria 03-12 Route: l 03:21: IVP, Drug form: INJ, ONCE, Dosing Weight 46.818, kg, Priority: STAT, Start date: 03/11/21 22:21:00 CDT, Stop date: 03/11/21 22:21:00 CDT Zofran No 4 mg, Memoria 5-03 Route: l 03:21: IVP, Drug form: INJ, ONCE, Dosing Weight 46.818, kg, Priority: STAT, Start date: 03/11/21 22:21:00 CDT, Stop date: 03/11/21 22:21:00 CDT doxycycline Yes 100 mg = 1 Memoria hyclate 100 4-04 cap, PO, l MG Oral 17:10: Q12H, X 7 Yani nn Capsule 00 day, # 14 cap, 0 Refill(s), Pharmacy: [facility] #[id number], 165.1, cm, 02/07/21 23:05:00 CDT, Height, 50.909, kg, 02/07/21 23:05:00 CDT, Weight doxycycline Yes 100 mg = 1 Memoria hyclate 100 4-04 cap, PO, l MG Oral 17:10: Q12H, X 7 Yani nn Capsule 00 day, # 14 cap, 0 Refill(s), Pharmacy: [facility] #[id number], 165.1, cm, 02/07/21 23:05:00 CDT, Height, 50.909, kg, 02/07/21 23:05:00 CDT, Weight Tums No Notes: Memoria 4- (Same As: l 14:00: Tums) Calcium Carbonate 500 mg = 200 mg elemental calcium Dose = mg calcium carbonate ( mg elemental calcium) Tums No Notes: Memoria 4- (Same As: l 14:00: Tums) Calcium Carbonate 500 mg = 200 mg elemental calcium Dose = mg calcium carbonate ( mg elemental calcium) Calcium No Notes: Memoria Chloride - WASTE: F/P l 12:49: - Sink; E [place] 00 - Municipal Trash Bin Calcium No Notes: Memoria Chloride - WASTE: F/P l 12:49: - Sink; E [place] - Municipal Trash Bin Calcium No Notes: Memoria Carbonate 4- (Same As: l 22:00: Tums) [place] Calcium Carbonate 500 mg = 200 mg elemental calcium Dose = mg calcium carbonate ( mg elemental calcium) Calcium No Notes: Memoria Carbonate 4- (Same As: l 22:00: Tums) [place] Calcium Carbonate 500 mg = 200 mg elemental calcium Dose = mg calcium carbonate ( mg elemental calcium) Codeine No Notes: Memoria Phosphate 2 - (Same As: l MG/ML / 20:07: Robitussin Herm nancy Guaifenesin AC) 20 MG/ML Oral Solution Codeine No Notes: Memoria Phosphate 2 4-02 (Same As: l MG/ML / 20:07: Robitussin Herm nancy Guaifenesin AC) 20 MG/ML Oral Solution Calcium No Notes: Memoria Gluconate - Contains: l 12:30: calcium [place] 00 gluconate 20mg/mL NaCl 0.67% 50mL WASTE: F/P - Sink; E - Municipal Trash Bin Calcium No Notes: Memoria Gluconate - Contains: l 12:30: calcium [place] 00 gluconate 20mg/mL NaCl 0.67% 50mL WASTE: F/P - Sink; E - Municipal Trash Bin Calcium No 2,000 mg, Memor ia Gluconate 02-09 Route: l 12:07: IVPB, Drug [place] 00 form: INJ, ONCE, Dosing Weight 50.909, kg, Start date: 02/09/21 7:07:00 CDT, Stop date: 02/09/21 7:07:00 CDT Calcium No 2,000 mg, Memor ia Gluconate 02-09 Route: l 12:07: IVPB, Drug [place] 00 form: INJ, ONCE, Dosing Weight 50.909, kg, Start date: 02/09/21 7:07:00 CDT, Stop date: 02/09/21 7:07:00 CDT heparin 2021-0 No Notes: Memoria 4-02 porcine l 02:00: heparin heparin 0 No Notes: Memoria 4-02 porcine l 02:00: heparin cefepime No Notes: Memoria 4- (Same As: l 01:00: Maxipime) MEDICATION WASTE Product Size: 1000 mg Product Wasted: ___ mg cefepime No Notes: Memoria 4- (Same As: l 01:00: Maxipime) MEDICATION WASTE Product Size: 1000 mg Product Wasted: ___ mg Benadryl No 25 mg, 1 Memor ia 4- tab, l 14:22: Route: PO, Drug form: TAB, TID, Dosing Weight 50.909, kg, PRN Itching, Start date: 02/08/21 9:22:00 CDT, Duration: 30 day, Stop date: 03/10/21 9:21:00 CDT, 0 Benadryl No 25 mg, 1 Memor ia - tab, l 14:22: Route: PO, Drug form: TAB, TID, Dosing Weight 50.909, kg, PRN Itching, Start date: 02/08/21 9:22:00 CDT, Duration: 30 day, Stop date: 03/10/21 9:21:00 CDT, 0 Amlodipine No Notes: Memor ia - (Same as: l 14:00: Norvasc) Aspirin 2020-0 No Notes: Memoria 4-01 Take with l 14:00: food. Lasix No 80 mg, 1 Memoria 4-01 tab, l 14:00: Route: PO, Drug form: TAB, BID, Dosing Weight 50.909, kg, Start date: 02/08/21 9:00:00 CDT, Duration: 30 day, Stop date: 03/09/21 17:00:00 CDT Levetiracet 0 No Notes: Rui jessa am 500 MG - (Same l Oral Tablet 14:00: as:Keppra) [Kepp] metoprolol No Notes: Memor ia tartrate 4-01 (Same as: l 14:00: Lopressor) Nifedipine No 30 mg, 3 Mem oria 10 MG Oral 4- cap, l Capsule 14:00: Route: PO, Drug form: CAP, TID, Dosing Weight 50.909, kg, Start date: 02/08/21 9:00:00 CDT, Duration: 30 day, Stop date: 03/09/21 17:00:00 CDT Prednisone No 40 mg, Memor ia 02-08 Route: PO, l 14:00: Daily, Dosing Weight 50.909, kg, Start date: 02/08/21 9:00:00 CDT, Duration: 30 day, Stop date: 03/09/21 9:00:00 CDT Protonix No Notes: Memoria 4-01 Tablet l 14:00: should not be chewed or crushed. (Same as: Protonix) Amlodipine No Notes: Memor ia 4- (Same as: l 14:00: Norvasc) Aspirin No Notes: Memoria 4-01 Take with l 14:00: food. Lasix No 80 mg, 1 Memoria 4-01 tab, l 14:00: Route: PO, Drug form: TAB, BID, Dosing Weight 50.909, kg, Start date: 02/08/21 9:00:00 CDT, Duration: 30 day, Stop date: 03/09/21 17:00:00 CDT Levetiracet No Notes: Rui jessa am 500 MG 4- (Same l Oral Tablet 14:00: as:Keppra) [] metoprolol No Notes: Memor ia tartrate 4- (Same as: l 14:00: Lopressor) Nifedipine No 30 mg, 3 Mem oria 10 MG Oral 4- cap, l Capsule 14:00: Route: PO, Drug form: CAP, TID, Dosing Weight 50.909, kg, Start date: 02/08/21 9:00:00 CDT, Duration: 30 day, Stop date: 03/09/21 17:00:00 CDT Prednisone No 40 mg, Memor ia 02-08 Route: PO, l 14:00: Daily, Dosing Weight 50.909, kg, Start date: 02/08/21 9:00:00 CDT, Duration: 30 day, Stop date: 03/09/21 9:00:00 CDT Protonix No Notes: Memoria - Tablet l 14:00: should not be chewed or crushed. (Same as: Protonix) Vancomycin No 2000 mg: Me moria 4- infuse l 08:00: over 2.5 [place] 00 hours For adult patients only: Round to nearest 250 mg per Medical Staff approval MEDICATION WASTE Product Size: 1000 mg Product Wasted: ___ mg Vancomycin No 2000 mg: Me moria 4- infuse l 08:00: over 2.5 [place] 00 hours For adult patients only: Round to nearest 250 mg per Medical Staff approval MEDICATION WASTE Product Size: 1000 mg Product Wasted: ___ mg Hydralazine No Notes: Rui jessa Hydrochlori - (Same as: l de 50 MG 05:00: Apresoline Her agudelo Oral Tablet 00 ) May interfere w/enteral feedings Take With Food. Hydralazine No Notes: Rui jessa Hydrochlori 4- (Same as: l de 50 MG 05:00: Apresoline Her agudelo Oral Tablet 00 ) May interfere w/enteral feedings Take With Food. Aspirin No Notes: Memoria 4-01 Take with l 04:00: food. Aspirin No Notes: Memoria 4-01 Take with l 04:00: food. Zofran No Notes: Memoria 4-01 (Same as: l 03:09: Zofran) MEDICATION WASTE Product Size: 4 mg Product Wasted: ___ mg Tylenol No Notes: Do Memor ia 4-01 not exceed l 03:09: 4 gm/day. [place] 00 (Same as: Tylenol) salon No Notes: Memoria Perles 4-01 (Same As: l 03:09: Tessalon Juancho 00 Perles) "Do Not Crush" Simethicone No Notes: Rui jessa 4-01 (Same as: l 03:09: Mylicon) [place] 00 sennosides, No Notes: Rui jessa ALF 8.6 MG 4-01 (Same as: l Oral Tablet 03:09: Senokot) He rm Docusate No Notes: Memoria 4-01 (Same as: l 03:09: Colace) [place] 00 Tramadol No Notes: Not Mem oria 4-01 to exceed l 03:09: 400mg/day. [place] 00 (Same As: Ultram) Zofran No Notes: Memoria 4-01 (Same as: l 03:09: Zofran) [place] 00 MEDICATION WASTE Product Size: 4 mg Product Wasted: ___ mg Tylenol No Notes: Do Memor ia 4-01 not exceed l 03:09: 4 gm/day. [place] 00 (Same as: Tylenol) Tessalon No Notes: Memoria Perles 4-01 (Same As: l 03:09: Tessalon [place] 00 Perles) "Do Not Crush" Simethicone No Notes: Rui jessa 4-01 (Same as: l 03:09: Mylicon) [place] 00 sennosides, No Notes: Rui jessa ALF 8.6 MG 4-01 (Same as: l Oral Tablet 03:09: Senokot) He rm Docusate No Notes: Memoria 4-01 (Same as: l 03:09: Colace) [place] Tramadol No Notes: Not Mem oria 4-01 to exceed l 03:09: 400mg/day. [place] 00 (Same As: Ultram) Lasix 2021-0 No 40 mg, Memoria 02-08 Route: PO, l 03:00: Q24H, Dosing Weight 50.909, kg, Start date: 02/07/21 22:00:00 CDT, Duration: 30 day, Stop date: 03/08/21 22:00:00 CDT Lasix 0 No 40 mg, Memoria 02-08 Route: PO, l 03:00: Q24H, Dosing Weight 50.909, kg, Start date: 02/07/21 22:00:00 CDT, Duration: 30 day, Stop date: 03/08/21 22:00:00 CDT Nitroglycer No Notes: Rui jessa in 0.4 MG 02-08 (Same l Sublingual 02:49: as:Nitroqu H ermann Tablet 00 ick, [Nitrostat] Nitrostat) "Do Not Crush" Sublingual tablet Nitroglycer No Notes: Rui jessa in 0.4 MG - (Same l Sublingual 02:49: as:Nitroqu H ermann Tablet 00 ick, [Nitrostat] Nitrostat) "Do Not Crush" Sublingual tablet Calcium No Notes: Memoria Gluconate 02-08 WASTE: F/P l 01:34: - Sink; E - Municipal Trash Bin Calcium No Notes: Memoria Gluconate 02-08 WASTE: F/P l 01:34: - Sink; E - [facility] Trash Bin Calcium No 3,000 mg, Memor ia Gluconate 02-08 Route: l 01:28: IVPB, Drug form: INJ, ONCE, Dosing Weight 50.909, kg, Start date: 02/07/21 20:28:00 CDT, Stop date: 02/07/21 20:28:00 CDT Calcium 0 No 3,000 mg, Memor ia Gluconate 02-08 Route: l 01:28: IVPB, Drug form: INJ, ONCE, Dosing Weight 50.909, kg, Start date: 02/07/21 20:28:00 CDT, Stop date: 02/07/21 20:28:00 CDT cefepime 2021-0 No 2 gm, Memoria - Route: l 00:59: IVPB, [place] 00 ONCE, Dosing Weight 50.909, kg, Priority: STAT, Start date: 02/07/21 19:59:00 CDT, Stop date: 02/07/21 19:59:00 CDT, ABX Indication : Pneumonia Kayexalate 2020-0 No 60 gm, Memor ia - Route: PO, l 00:59: ONCE, [place] 00 Dosing Weight 50.909, kg, Priority: STAT, Start date: 02/07/21 19:59:00 CDT, Stop date: 02/07/21 19:59:00 CDT cefepime 2020-0 No 2 gm, Memoria 02-08 Route: l 00:59: IVPB, [place] 00 ONCE, Dosing Weight 50.909, kg, Priority: STAT, Start date: 02/07/21 19:59:00 CDT, Stop date: 02/07/21 19:59:00 CDT, ABX Indication : Pneumonia Kayexalate 0 No 60 gm, Memor ia 02-08 Route: PO, l 00:59: ONCE, [place] 00 Dosing Weight 50.909, kg, Priority: STAT, Start date: 02/07/21 19:59:00 CDT, Stop date: 02/07/21 19:59:00 CDT Vancomycin No 2000 mg: Me moria - infuse l 00:58: over 2.5 [place] 00 hours For adult patients only: Round to nearest 250 mg per Medical Staff approval MEDICATION WASTE Product Size: 1000 mg Product Wasted: ___ mg Vancomycin No 2000 mg: Me moria -01 infuse l 00:58: over 2.5 [place] 00 hours For adult patients only: Round to nearest 250 mg per Medical Staff approval MEDICATION WASTE Product Size: 1000 mg Product Wasted: ___ mg Saline No Notes: Memoria Flush 0.9% 02-08 (Same as: l 00:38: BD [place] 00 Posiflush) Dextrose No 50 mL, Memoria 50% Syringe 02-08 Route: l (D50W) 00:38: IVP, [place] 00 Dosing Weight 50.909, kg, ONCE, STAT, Start date: 02/07/21 19:38:00 CDT, Stop date: 02/07/21 19:38:00 CDT Insulin 2020-0 No 5 unit, Memoria regular 02-08 Route: l 00:38: IVP, ONCE, [place] Dosing Weight 50.909, kg, Priority: STAT, Start date: 02/07/21 19:38:00 CDT, Stop date: 02/07/21 19:38:00 CDT Calcium 2020-0 No 1 gm, Memoria Chloride 02-08 Route: l 00:38: IVPB, [place] 00 ONCE, Dosing Weight 50.909, kg, Priority: STAT, Start date: 02/07/21 19:38:00 CDT, Stop date: 02/07/21 19:38:00 CDT Albuterol No Notes: SEE Me moria 0.83 MG/ML 02-08 RT l Inhalant 00:38: DOCUMENTAT Her agudelo Solution 00 ION (Same as: Proventil) Saline No Notes: Memoria Flush 0.9% 02-08 (Same as: l 00:38: BD [place] 00 Posiflush) Dextrose No 50 mL, Memoria 50% Syringe 02-08 Route: l (D50W) 00:38: IVP, [place] 00 Dosing Weight 50.909, kg, ONCE, STAT, Start date: 02/07/21 19:38:00 CDT, Stop date: 02/07/21 19:38:00 CDT Insulin 2020-0 No 5 unit, Memoria regular 02-08 Route: l 00:38: IVP, ONCE, [place] 00 Dosing Weight 50.909, kg, Priority: STAT, Start date: 02/07/21 19:38:00 CDT, Stop date: 02/07/21 19:38:00 CDT Calcium 2020-0 No 1 gm, Memoria Chloride 02-08 Route: l 00:38: IVPB, [place] 00 ONCE, Dosing Weight 50.909, kg, Priority: STAT, Start date: 02/07/21 19:38:00 CDT, Stop date: 02/07/21 19:38:00 CDT Albuterol 0 No Notes: SEE Me moria 0.83 MG/ML 4- RT l Inhalant 00:38: DOCUMENTAT Her agudelo Solution 00 ION (Same as: Proventil) Tylenol 2020-0 No 650 mg, Memoria 02-07 Route: PO, l 23:23: Drug form: [place] 00 TAB, ONCE, Dosing Weight 50.909, kg, Priority: STAT, Start date: 02/07/21 18:23:00 CDT, Stop date: 02/07/21 18:23:00 CDT Tylenol 0 No 650 mg, Memoria 02-07 Route: PO, l 23:23: Drug form: [place] 00 TAB, ONCE, Dosing Weight 50.909, kg, Priority: STAT, Start date: 02/07/21 18:23:00 CDT, Stop date: 02/07/21 18:23:00 CDT acetaminoph 2020-0 2020- No [facility] (TYLENOL) 12:00: 11:39 Medical tablet 650 00 :00 Center mg acetaminoph 2020-0 2020- No [address] 02-[facility] (TYLENOL) 12:00: 11:39 Medical tablet 650 00 :00 Center mg acetaminoph 2020-0 2020- No [address] [facility] en -02-05 [facility] (TYLENOL) 12:00: 11:39 Medical tablet 650 00 :00 Center mg acetaminoph 2020-0 2020- No [address] [facility] en 02-05 [facility] (TYLENOL) 12:00: 11:39 Medical tablet 650 00 :00 Center mg metoprolol 2020-0 Yes 25mg QD Take [address] tartrate -29 by mouth [facility] (LOPRESSOR) 09:19: daily. Medi tian 25 MG 54 Center tablet hydrALAZINE 0 Yes 50mg [id number] Take [address] [facility] (APRESOLINE -29 [id number] by [facility] ) 50 MG 09:19: 3D (three) Medical tablet 54 times Center daily. metoprolol 2020-0 Yes 25mg QD Take [address] tartrate 3-29 [facility] (LOPRESSOR) 09:19: daily. Medi tian 25 MG 54 Center tablet hydrALAZINE 0 Yes 50mg Q.[id number] Take [address] [facility] (APRESOLINE 3-29 [id number] by [facility] 3 [facility] ) 50 MG 09:19: 3D (three) Medical tablet 54 times Center daily. metoprolol 0 Yes 25mg QD Take [address] tartrate 3-29 by [facility] (LOPRESSOR) 09:19: daily. Medi tian 25 MG 54 Center tablet hydrALAZINE 0 Yes 50mg Q.[id number] Take [address] [facility] (APRESOLINE 3-29 [id number] [facility] ) 50 MG 09:19: 3D (three) Medical tablet 54 times Center daily. metoprolol 0 Yes 25mg QD Take [address] tartrate 3-29 by [facility] (LOPRESSOR) 09:19: daily. Medi tian 25 MG 54 Center tablet hydrALAZINE 0 Yes 50mg Q.[id number] Take [address] [facility] (APRESOLINE 3-29 [id number] by mouth 3 [facility] ) 50 MG 09:19: 3D (three) Medical tablet 54 times Center daily. sodium 2020- No [facility] chloride 3-29 03-29 [facility] 0.9% (NS) 09:15: 14:30 Medical infusion 00 :00 Center sodium 2020- No [facility] chloride 3-29 03-29 [facility] 0.9% (NS) 09:15: 14:30 Medical infusion 00 :00 Center sodium 2020-0 2020- No [facility] chloride 3-29 03-29 [facility] 0.9% (NS) 09:15: 14:30 Medical infusion 00 :00 Center sodium 2020-0 2020- No [facility] chloride 3-29 03-29 [facility] 0.9% (NS) 09:15: 14:30 Medical infusion 00 :00 Center Metoclopram No Notes: Rui jessa kylah 01-18 (Same as: l 19:46: Reglan) [place] 00 Acetaminoph No Notes: Do M emoria en 01-18 not exceed l 19:46: 4 gm/day. (Same as: Tylenol) Metoclopram No Notes: Rui jessa kylah 01-18 (Same as: l 19:46: Reglan) Acetaminoph No Notes: Do M emoria en 01-18 not exceed l 19:46: 4 gm/day. (Same as: Tylenol) Levetiracet Yes 500 mg = 1 Memoria am 500 MG 3-11 tab, PO, l Oral Tablet 19:08: BID, # 60 H ermann [Keppra] 00 tab, 0 Refill(s), [id number], 152.4, cm, 01/18/21 10:49:00 [employer], Height, 46.818, kg, 01/18/21 10:49:00 [employer], Weight Levetiracet Yes 500 mg = 1 Memoria am 500 MG 3-11 tab, PO, l Oral Tablet 19:08: BID, # 60 H ermann [Keppra] 00 tab, 0 Refill(s), Pharmacy: [facility]ORE #[id number], 152.4, cm, 01/18/21 10:49:00 [employer], Height, 46.818, kg, 01/18/21 10:49:00 [employer], Weight Keppra No Notes: Memoria 3-11 (Same l 18:59: as:Keppra) Keppra No Notes: Memoria 3-11 (Same l 18:59: as:Keppra) levETIRAcet Yes 500mg Q.5D Take [address] am (KEPPRA) 3-11 mg by [facility] 500 MG 00:00: mouth 2 Medical tablet 00 (two) Center times daily. levETIRAcet 0 Yes 500mg Q.5D Take [address] am (KEPPRA) 3-11 mg by [facility] 500 MG 00:00: mouth 2 Medical tablet 00 (two) Center times daily. levETIRAcet Yes 500mg Q.5D Take [address] am (KEPPRA) 3-11 mg by [facility] 500 MG 00:00: mouth 2 Medical tablet 00 (two) Center times daily. levETIRAcet Yes 500mg Q.5D Take [address] am (KEPPRA) 3-11 mg by [facility] 500 MG 00:00: mouth 2 Medical tablet 00 (two) Center times daily. Hydralazine No Notes: Rui jessa Hydrochlori 3-05 (Same as: l de 50 MG 16:00: Apresoline Her agudelo Oral Tablet 00 ) May interfere w/enteral feedings Take With Food Hydralazine No Notes: Rui jessa Hydrochlori 3-05 (Same as: l de 50 MG 16:00: Apresoline Her agudelo Oral Tablet 00 ) May interfere w/enteral feedings Take With Food Adult Yes 81 mg = 1 Memoria Aspirin 81 3-05 tab, CHEW, l mg oral 15:28: Daily, # Mikhail n tablet, 00 30 tab, 3 chewable Refill(s) Adult Yes 81 mg = 1 [facility] Aspirin 81 3-05 tab, CHEW, l mg oral 15:28: Daily, # Mikhail n tablet, 00 30 tab, 3 chewable Refill(s) Nitroglycer Yes 0.4 mg = 1 Memoria in 0.4 MG 3-05 tab, SL, l Sublingual 15:26: Q5Min, PRN H ermann Tablet 00 Chest [Nitrostat] Pain, not to exceed 3 doses/15 min--if pain persists, seek medical attention, # 100 tab, 3 Refill(s) Nitroglycer Yes 0.4 mg = 1 Memoria in 0.4 MG 3-05 tab, SL, l Sublingual 15:26: Q5Min, PRN H ermann Tablet 00 Chest [Nitrostat] Pain, not to exceed 3 doses/15 min--if pain persists, seek medical attention, # 100 tab, 3 Refill(s) Saline No Notes: Memoria Flush 0.9% 3-05 (Same as: l 15:00: BD [place] Posiflush) Amlodipine No Notes: Memor ia 3-05 (Same as: l 15:00: Norvasc) [place] Lasix No Notes: Memoria 3-05 (Same as: l 15:00: Lasix) May cause GI upset. Give with food or milk. metoprolol No Notes: Memor ia tartrate 3-05 (Same as: l 15:00: Lopressor) Nifedipine No 30 mg, 3 Mem oria 10 MG Oral 3-05 cap, l Capsule 15:00: Route: PO, Herm nancy 00 Drug form: CAP, TID, Dosing Weight 46.818, kg, Start date: 01/12/21 9:00:00 [employer], Duration: 30 day, Stop date: 02/10/21 17:00:00 CDT Protonix No Notes: Memoria 3-05 Tablet l 15:00: should not [place] 00 be chewed or crushed. (Same as: Protonix) Prednisone No Notes: Memor ia 3-05 Take with l 15:00: food. Saline No Notes: Memoria Flush 0.9% 3-05 (Same as: l 15:00: BD Posiflush) Amlodipine No Notes: Memor ia 3-05 (Same as: l 15:00: Norvasc) Lasix No Notes: Memoria 3-05 (Same as: l 15:00: Lasix) May cause GI upset. Give with food or milk. metoprolol No Notes: Memor ia tartrate 3-05 (Same as: l 15:00: Lopressor) Nifedipine No 30 mg, 3 Mem oria 10 MG Oral 3-05 cap, l Capsule 15:00: Route: PO, Herm nancy 00 Drug form: CAP, TID, Dosing Weight 46.818, kg, Start date: 01/12/21 9:00:00 [employer], Duration: 30 day, Stop date: 02/10/21 17:00:00 CDT Protonix No Notes: Memoria 3-05 Tablet l 15:00: should not [place] 00 be chewed or crushed. (Same as: Protonix) Prednisone No Notes: Memor ia 3-05 Take with l 15:00: food. Tylenol No Notes: Do Memor ia 3-05 not exceed l 14:17: 4 gm/day. (Same as: Tylenol) Tylenol No Notes: Do Memor ia 3-05 not exceed l 14:17: 4 gm/day. (Same as: Tylenol) Tylenol No Notes: Do Memor ia 3-05 not exceed l 14:16: 4 gm/day. (Same as: Tylenol) Tramadol No Notes: Not Mem oria 3-05 to exceed l 14:16: 400mg/day. (Same As: Ultram) Zofran No Notes: Memoria 3-05 (Same as: l 14:16: Zofran) MEDICATION WASTE Product Size: 4 mg Product Wasted: ___ mg Tylenol No Notes: Do Memor ia 3-05 not exceed l 14:16: 4 gm/day. (Same as: Tylenol) Tramadol No Notes: Not Mem oria 3-05 to exceed l 14:16: 400mg/day. (Same As: Ultram) Zofran No Notes: Memoria 3-05 (Same as: l 14:16: Zofran) MEDICATION WASTE Product Size: 4 mg Product Wasted: ___ mg Hydralazine No Notes: Rui jessa Hydrochlori 3-05 (Same as: l de 50 MG 06:00: Apresoline Her agudelo Oral Tablet 00 ) May interfere w/enteral feedings Take With Food Hydralazine No Notes: Rui jessa Hydrochlori 3-05 (Same as: l de 50 MG 06:00: Apresoline Her agudelo Oral Tablet 00 ) May interfere w/enteral feedings Take With Food heparin No Notes: Memoria 3-05 porcine l 06:00: heparin heparin No Notes: Memoria 3-05 porcine l 06:00: heparin Nitroglycer No Notes: Rui jessa in - (Same l 03:17: as:Nitroqu [place] 00 ick, Nitrostat) "Do Not Crush" Sublingual tablet Saline No Notes: Memoria Flush 0.9% - (Same as: l 03:17: BD [place] Posiflush) Nitroglycer No Notes: Rui jessa in 01-12 (Same l 03:17: as:Nitroqu [place] ick, Nitrostat) "Do Not Crush" Sublingual tablet Saline No Notes: Memoria Flush 0.9% - (Same as: l 03:17: BD [place] Posiflush) metoprolol Yes 25mg Q.5D Take [address] tartrate 3-04 by mouth 2 [facility] (L[facility]) 13:31: (two) Medic al 25 MG 50 times Center tablet daily Patient not been taking due to low BP . metoprolol Yes 25mg Q.5D Take [address] tartrate 3-04 by mouth 2 [facility] (LOPRESSOR) 13:31: (two) Medic al 25 MG 50 times Center tablet daily Patient not been taking due to low BP . metoprolol Yes 25mg Q.5D Take [address] tartrate 3-04 by mouth 2 [facility] (LOPRESSOR) 13:31: (two) Medic al 25 MG 50 times Center tablet daily Patient not been taking due to low BP . metoprolol Yes 25mg Q.5D Take [address] tartrate 3-04 by mouth 2 [facility] (LOPRESSOR) 13:31: (two) Medic al 25 MG 50 times Center tablet daily Patient not been taking due to low BP . predniSONE 2020- No 40mg QD Take [address] [facility] (DELTASONE) 3-04 03-04 by mouth Karen es 20 MG 13:31: 00:00 daily. Medical tablet 41 :00 Center predniSONE 2020-0 2020- No 40mg QD Take [address] [facility] (DELTASONE) 3-04 03-04 by mouth Karen es 20 MG 13:31: 00:00 daily. Medical tablet 41 :00 Center predniSONE 2020-0 2021- No 40mg QD Take [address] [facility] (DELTASONE) 3-04 03-04 by mouth Karen es 20 MG 13:31: 00:00 daily. Medical tablet 41 :00 Center predniSONE 2020-0 2021- No 40mg QD Take [address] [facility] (DELTASONE) 3-04 03-04 by mouth Karen es 20 MG 13:31: 00:00 daily. Medical tablet 41 :00 Center pantoprazol 2020-0 2021- No 40mg QD Take [address] [facility] e 3-04 03-04 by mouth [facility] (PROTONIX) 13:30: 00:00 daily. Medi tian 40 MG 47 :00 Center tablet pantoprazol 2020-0 2021- No 40mg QD Take [address] [facility] e 3-04 03-04 by mouth [facility] (PROTONIX) 13:30: 00:00 daily. Medi tian 40 MG 47 :00 Center tablet pantoprazol 2020-0 2021- No 40mg QD Take [address] [facility] e 3-04 03-04 by mouth [facility] (PROTONIX) 13:30: 00:00 daily. Medi tian 40 MG 47 :00 Center tablet pantoprazol 2020-0 2020- No 40mg QD Take [address] [facility] e 3-04 03-04 by mouth [facility] (PROTONIX) 13:30: 00:00 daily. Medi tian 40 MG 47 :00 Center tablet hydrOXYchlo 2020-0 2020- No 200mg QD Take [address] [facility] roQUINE 3-04 03-04 mg by [facility] (PLAQUENIL) 13:30: 00:00 mouth Medi tian 200 mg 25 :00 daily. Center tablet hydrOXYchlo 2020-2020- No 200mg QD Take [address] [facility] roQUINE 3-04 03-04 mg by [facility] (PLAQUENIL) 13:30: 00:00 mouth Medi tian 200 mg 25 :00 daily. Center tablet hydrOXYchlo 2020-0 2021- No 200mg QD Take [address] [facility] roQUINE 3-04 03-04 mg by [facility] (PLAQUENIL) 13:30: 00:00 mouth Medi tian 200 mg 25 :00 daily. Center tablet hydrOXYchlo 2020-0 2021- No 200mg QD Take [address] [facility] roQUINE 3-04 03-04 mg by [facility] (PLAQUENIL) 13:30: 00:00 mouth Medi tian 200 mg 25 :00 daily. Center tablet furosemide 2020- No 20mg Q.5D Take [address] [facility] (LASIX) 20 3-04 03-04 by mouth 2 Rosio kes MG tablet 13:30: 00:00 (two) Medica l 12 :00 times Center daily. furosemide 2020- No 20mg Q.5D Take [address] [facility] (LASIX) 20 3-04 03-04 by mouth 2 Rosio kes MG tablet 13:30: 00:00 (two) Medica l 12 :00 times Center daily. furosemide 2020- No 20mg Q.5D Take [address] [facility] (LASIX) 20 3-04 03-04 by mouth 2 Rosio kes MG tablet 13:30: 00:00 (two) Medica l 12 :00 times Center daily. furosemide 2020- No 20mg Q.5D Take [address] [facility] (LASIX) 20 3-04 03-04 by mouth 2 Rosio kes MG tablet 13:30: 00:00 (two) Medica l 12 :00 times Center daily. famotidine 2020- No 20mg Q.5D Take [address] [facility] (PEPCID) 20 3-04 03-04 by mouth 2 L ukes MG tablet 13:29: 00:00 (two) Medica l 59 :00 times Center daily. famotidine 2020- No 20mg Q.5D Take [address] [facility] (PEPCID) 20 3-04 03-04 by mouth 2 L ukes MG tablet 13:29: 00:00 (two) Medica l 59 :00 times Center daily. famotidine 2020- No 20mg Q.5D Take [address] [facility] (PEPCID) 20 3-04 03-04 by mouth 2 L ukes MG tablet 13:29: 00:00 (two) Medica l 59 :00 times Center daily. famotidine 2020- No 20mg Q.5D Take [address] [facility] (PEPCID) 20 3-04 03-04 by mouth 2 L ukes MG tablet 13:29: 00:00 (two) Medica l 59 :00 times Center daily. amLODIPine 2020- No 10mg QD Take [address] [facility] (NORVASC) 3-04 03-04 by [facility] 10 MG 13:29: 00:00 daily. Medical tablet 52 :00 [place] amLODIPine 2020-0 2020- No 10mg QD Take [address] [facility] (NORVASC) 3-04 03-04 by [facility] 10 MG 13:29: 00:00 daily. Medical tablet 52 :00 [place] amLODIPine 2020-0 202- No 10mg QD Take [address] [facility] (NORVASC) 3-04 03-04 by [facility] 10 MG 13:29: 00:00 daily. Medical tablet 52 :00 [place] amLODIPine 2020-0 2020- No 10mg QD Take [address] [facility] (NORVASC) 3-04 03-04 by mouth [facility] 10 MG 13:29: 00:00 daily. Medical tablet 52 :00 [place] ergocalcife 2020-0 Yes [id number] Take [place] [facility] 2-03 50,000 [facility] (Vitamin 00:00: Units by D2) 1.25 MG 00 mouth 1 (88845 UT) (one) time capsule per week. ergocalcife 0 Yes [id number] Take [place] ro[facility] 2-03 50,000 [facility] (Vitamin 00:00: Units by D2) 1.25 MG 00 mouth 1 (23213 UT) (one) time capsule per week. metoprolol 2019- Yes 25mg Q.5D Take 25 mg [facility] tartrate 0-[address] (LOPRESSOR) 00:08: (two) Hospi ta 25 mg 13 times a l tablet day. hydrALAZINE 2019-11 Yes 50mg Q.[id number] Take 50 mg [facility] (APRESOLINE 0-[id number] mouth [address] [facility] ) 50 MG 00:08: 3D (three) Hospita tablet 13 times a l day. hydrALAZINE 2019- Yes 50mg Q8H Take 50 mg [facility] (Apresoline 0-14 by mouth [facility]al [facility] ) 50 MG 00:00: every 8 tablet 00 (eight) hours. hydrALAZINE 2019- Yes 50mg Q8H Take 50 mg [facility] (Apresoline 0-14 by mouth [facility]al [facility] ) 50 MG 00:00: every 8 tablet 00 (eight) hours. docusate 2019-1 2020- No 100mg Q.5D Take 1 [facility]o di sodium 0-13 10-[address] (Colace) 00:00: 04:59 (100 mg Hospi ta 100 MG 00 :00 total) by l capsule mouth 2 (two) times a day for 7 days. doxycycline 2019-11- No 50mg Q.5D Take 1 [facility] (VIBRAMYCIN 0-13 10-[address] ) 50 MG 00:00: 04:59 (50 mg Hospita capsule 00 :00 total) by l mouth 2 (two) times a day for 7 days. acetaminoph 2019-11- [place] [id number] 1{tbl} Q8H Take 1 [facility] en-codeine 0-13 -[address] (TYLENOL 00:00: 04:59 mouth Hospita WITH 00 :00 every 8 l CODEINE #3) (eight) 300-30 mg hours as per tablet needed for moderate pain for up to 7 days .acute pain. ondansetron 2019-11 No 4mg Q6H Take 1 [facility] (Zofran) 4 0-13 - tablet (4 st MG tablet 00:00: 04:59 mg total) Ho spita 00 :00 by mouth l every 6 (six) hours as needed for nausea or vomiting for up to 5 days. Tylenol No Notes: Max Rui jessa 9-13 acetaminop l 19:59: hen 4000 [place] 00 mg/day (4 gm/day). (Same as: Tylenol Extra Strength) Tylenol No Notes: Max Rui jessa 9-13 acetaminop l 19:59: hen 4000 [place] 00 mg/day (4 gm/day). (Same as: Tylenol Extra Strength) atorvastati No Notes: Rui jessa n 7-22 (Same as: l 02:00: Lipitor) [place] 00 atorvastati No Notes: Rui jessa n 7-22 (Same as: l 02:00: Lipitor) [place] Ativan No Notes: Memoria 7-21 (Same as: l 19:28: Ativan) [place] 00 Ativan No Notes: Memoria 7-21 (Same as: l 19:28: Ativan) [place] 00 Aspirin 81 2020-0 No Notes: Do Me moria MG Enteric 7-21 not crush l Coated 14:00: or chew. [place] Tablet 00 (Same As: Ecotrin) Famotidine 0 No Notes: Memor ia 7-21 (Same as: l 14:00: Pepcid) [place] 00 Saline 0 No Notes: [facility]oria Flush 0.9% 7-21 Same as: l 14:00: BD [place] Posiflush Sterile Aspirin 81 2019-0 No Notes: Do Me moria MG Enteric 7-21 not crush l Coated 14:00: or chew. [place] Tablet 00 (Same As: Ecotrin) Famotidine No Notes: Memor ia 7-21 (Same as: l 14:00: Pepcid) [place] 00 Saline No Notes: [facility]oria Flush 0.9% 7-21 Same as: l 14:00: BD [place] Posiflush Sterile heparin 2020-0 No Notes: Memoria 7-21 porcine l 13:00: heparin [place] 00 heparin 2019-0 No Notes: Memoria 7-21 porcine l 13:00: heparin [place] 00 Aspirin 81 2019-0 No Notes: Do Me moria MG Enteric 7-21 not crush l Coated 06:00: or chew. [place] Tablet 00 (Same As: Ecotrin) Aspirin 81 2019-0 No Notes: Do Me moria MG Enteric 7-21 not crush l Coated 06:00: or chew. [place] Tablet 00 (Same As: Ecotrin) Labetalol No Notes: Memori a 7-21 (Same as: l 05:58: Normodyne, [place] 00 Trandate) Push over 2 minutes Give bolus over 2-3 minutes. Saline 2020-0 No Notes: [facility] Flush 0.9% 7-21 Same as: l 05:58: BD [place] 00 Posiflush Sterile Bisacodyl 2019-0 No Notes: Memori a 7-21 (Same As: l 05:58: Dulcolax, [place] 00 Bisco-Lax) Simethicone 2019-0 No Notes: Rui jessa 7-21 (Same as: l 05:58: Mylicon) Dextrometho 2019-0 No Notes: Rui jessa rphan 7-21 (dextromet l Hydrobromid 05:58: horphan-gu [place] e 2 MG/ML / 00 aifenesin Guaifenesin 10-100mg/5 20 MG/ML ml 10 ml Oral oral SOLN Solution ud) (Same as: Robitussin DM) Tessalon No Notes: [facility] Perles 05-30 (Same As: l 05:58: Tessalon [place] 00 Perles) "Do Not Crush" Diphenhydra No 25 mg, 1 Me moria mine 05-30 tab, l 05:58: Route: PO, [place] 00 Drug form: TAB, Q6H, Dosing Weight 47, kg, PRN Itching, Start date: 05/30/20 0:58:00 CDT, Duration: 30 day, Stop date: 06/29/20 0:57:00 CDT, 0 Acetaminoph No Notes: Do M emoria en 05-30 not exceed l 05:58: 4 gm/day. [place] 00 (Same as: Tylenol) Hydralazine No Notes: Rui jessa 05-30 (Same as: l 05:58: Apresoline [place] ) Push over 5 minutes Acetaminoph No Notes: Do M emoria en 300 MG / 05-30 not exceed l Codeine 05:58: 4gm/day of Herm nancy Phosphate 00 acetaminop 30 MG Oral hen. (Same Tablet as: [Tylenol Tylenol with with Codeine #3] Codeine # 3) tramadol No Notes: Not Mem oria hydrochlori 05-30 to exceed l de 50 MG 05:58: 400mg/day. Her agudelo Oral Tablet 00 (Same As: Ultram) Zofran ODT No Notes: Memor ia 05-30 (Same as: l 05:58: Zofran [place] 00 ODT) Hydralazine No Notes: Rui jessa Hydrochlori 05-30 (Same as: l de 25 MG 05:58: Apresoline Her agudelo Oral Tablet 00 ) May interfere w/enteral feedings Take With Food. Clonidine No Notes: Memori a Hydrochlori 05-30 (Same As: l de 0.1 MG 05:58: Catapres) Her agudelo Oral Tablet 00 Docusate No Notes: Memoria Sodium 50 - (Same as: l MG Oral 05:58: Colace) Juancho Capsule 00 [Colace] sennosides, No Notes: Rui jessa ALF 8.6 MG - (Same as: l Oral Tablet 05:58: Senokot) He rmann Melatonin 3 No Notes: Rui jessa MG Extended 05-30 (Same as: l Release 05:58: Melatonin) Herm nancy Tablet Miralax No Notes: Memoria - Dissolve l 05:58: in 8 oz of water or juice. (Same as: Miralax) Labetalol No Notes: Memori a - (Same as: l 05:58: Normodyne, Trandate) Push over 2 minutes Give bolus over 2-3 minutes. Saline No Notes: Memoria Flush 0.9% 05-30 Same as: l 05:58: BD Posiflush Sterile Bisacodyl No Notes: Memori a - (Same As: l 05:58: Dulcolax, Bisco-Lax) Simethicone No Notes: Rui jessa - (Same as: l 05:58: Mylicon) Dextrometho No Notes: Rui jessa rphan 05-30 (dextromet l Hydrobromid 05:58: horphan-gu [place] e 2 MG/ML / 00 aifenesin Guaifenesin 10-100mg/5 20 MG/ML ml 10 ml Oral oral SOLN Solution ud) (Same as: Robitussin DM) Tessalon No Notes: Memoria Perles 05-30 (Same As: l 05:58: Tessalon Perles) "Do Not Crush" Diphenhydra No 25 mg, 1 Me moria mine 05-30 tab, l 05:58: Route: PO, Drug form: TAB, Q6H, Dosing Weight 47, kg, PRN Itching, Start date: 05/30/20 0:58:00 CDT, Duration: 30 day, Stop date: 06/29/20 0:57:00 CDT, 0 Acetaminoph No Notes: Do M emoria en 7-21 not exceed l 05:58: 4 gm/day. [place] 00 (Same as: Tylenol) Hydralazine No Notes: Rui jessa 7-21 (Same as: l 05:58: Apresoline [place] ) Push over 5 minutes Acetaminoph No Notes: Do M emoria en 300 MG / 7- not exceed l Codeine 05:58: 4gm/day of Herm nancy Phosphate 00 acetaminop 30 MG Oral hen. (Same Tablet as: [Tylenol Tylenol with with Codeine #3] Codeine # 3) tramadol No Notes: Not Mem oria hydrochlori 7-21 to exceed l de 50 MG 05:58: 400mg/day. Her agudelo Oral Tablet 00 (Same As: Ultram) Zofran ODT No Notes: Memor ia 7-21 (Same as: l 05:58: Zofran [place] ODT) Hydralazine No Notes: Rui jessa Hydrochlori 7-21 (Same as: l de 25 MG 05:58: Apresoline Her agudelo Oral Tablet 00 ) May interfere w/enteral feedings Take With Food. Clonidine No Notes: Memori a Hydrochlori 7-21 (Same As: l de 0.1 MG 05:58: Catapres) Her agudelo Oral Tablet 00 Docusate No Notes: Memoria Sodium 50 7-21 (Same as: l MG Oral 05:58: Colace) [place] Capsule 00 [Colace] sennosides, No Notes: Rui jessa ALF 8.6 MG 7-21 (Same as: l Oral Tablet 05:58: Senokot) He rmann 00 Melatonin 3 No Notes: Rui jessa MG Extended 7-21 (Same as: l Release 05:58: Melatonin) Herm nancy Tablet 00 Miralax No Notes: Memoria 7-21 Dissolve l 05:58: in 8 oz of [place] 00 water or juice. (Same as: Miralax) Saline No Notes: Memoria Flush 0.9% 7- Same as: l 02:00: BD [place] 00 Posiflush Sterile Saline 2020-0 No Notes: Memoria Flush 0.9% 7- Same as: l 02:00: BD Posiflush Sterile cefdinir 2020-0 Yes 300 mg = 1 Mem oria 300 MG Oral 6-04 cap, PO, l Capsule 18:56: Q24H, X 7 Yani nn 00 day, # 7 cap, 0 Refill(s), Pharmacy: [facility] #[id number] cefdinir 2020-0 Yes 300 mg = 1 Mem oria 300 MG Oral 6-04 cap, PO, l Capsule 18:56: Q24H, X 7 Yani nn 00 day, # 7 cap, 0 Refill(s), Pharmacy: [facility] #[id number] PhosLo 2020-0 No Notes: Memoria Gelcap 6-04 Same as l 13:00: Phoslo Gel [place] 00 Cap PhosLo 2020-0 No Notes: Memoria Gelcap 6-04 Same as l 13:00: Phoslo Gel 00 Cap Benadryl 2020-0 No 25 mg, 1 Memor ia 6-03 tab, l 16:44: Route: PO, [place] 00 Drug form: TAB, ONCE, Dosing Weight 57.005, kg, Start date: 04/12/20 11:44:00 CDT, Stop date: 04/12/20 11:44:00 CDT, 0 Benadryl 2020-0 No 25 mg, 1 Memor ia 6-03 tab, l 16:44: Route: PO, Drug form: TAB, ONCE, Dosing Weight 57.005, kg, Start date: 04/12/20 11:44:00 CDT, Stop date: 04/12/20 11:44:00 CDT, 0 Sulfamethox 2020-0 No Notes: One Memoria azole 800 6-03 DS tablet l MG / 14:00: = Trimethopri 00 trimethopr m 160 MG im 160mg + Oral Tablet sulfametho [Bactrim] xazole 800 mg Dose based on trimethopr im component On empty stomach with a glass of water. (Same As: Bactrim DS, Septra DS) Sulfamethox 2020-0 No Notes: One Memoria azole 800 6-03 DS tablet l MG / 14:00: = Trimethopri 00 trimethopr m 160 MG im 160mg + Oral Tablet sulfametho [Bactrim] xazole 800 mg Dose based on trimethopr im component On empty stomach with a glass of water. (Same As: Bactrim DS, Septra DS) heparin 2019-0 No Notes: Memoria 04-12 porcine l 02:00: heparin heparin 2020-0 No Notes: Memoria - porcine l 02:00: heparin Ceftriaxone 2019-0 No Notes: Rui jessa 04-11 (Same As: l 17:00: Rocephin). Use with 100 mL NS and infuse over 30 min MEDICATION WASTE Product Size: 1000 mg Product Wasted: ___ mg Ceftriaxone 2020-0 No Notes: Rui jessa 04-11 (Same As: l 17:00: Rocephin). Use with 100 mL NS and infuse over 30 min MEDICATION WASTE Product Size: 1000 mg Product Wasted: ___ mg Benadryl 2020-0 No 25 mg, Memoria 04-11 Route: PO, l 16:44: ONCE, Dosing Weight 57.005, kg, Start date: 04/11/20 11:44:00 CDT, Stop date: 04/11/20 11:44:00 CDT Benadryl 2020-0 No 25 mg, Memoria 04-11 Route: PO, l 16:44: ONCE, Dosing Weight 57.005, kg, Start date: 04/11/20 11:44:00 CDT, Stop date: 04/11/20 11:44:00 CDT Benadryl 2020-0 No 25 mg, 1 Memor ia -02 tab, l 14:37: Route: PO, Drug form: TAB, TID, Dosing Weight 57.005, kg, PRN Itching, Start date: 04/11/20 9:37:00 CDT, Duration: 30 day, Stop date: 05/11/20 9:36:00 CDT, 0 Benadryl 2020-0 No 25 mg, 1 Memor ia 6-02 tab, l 14:37: Route: PO, Drug form: TAB, TID, Dosing Weight 57.005, kg, PRN Itching, Start date: 04/11/20 9:37:00 CDT, Duration: 30 day, Stop date: 05/11/20 9:36:00 CDT, 0 Prednisone 2019-0 No Notes: Memor ia 6-02 Take with l 14:00: food. Protonix 2019-0 No Notes: Memoria 6-02 Tablet l 14:00: should not be chewed or crushed. (Same as: Protonix) Prednisone 2019-0 No Notes: Memor ia 6-02 Take with l 14:00: food. Protonix 2019-0 No Notes: Memoria 6-02 Tablet l 14:00: should not [place] 00 be chewed or crushed. (Same as: Protonix) Vancomycin 2019-0 No 2000 mg: Me moria 6- infuse l 01:00: over 2.5 [place] 00 hours For adult patients only: Round to nearest 250 mg per Medical Staff approval MEDICATION WASTE Product Size: 1000 mg Product Wasted: ___ mg cefepime 2019-0 No Notes: Memoria 04-11 (Same As: l 01:00: Maxipime) MEDICATION WASTE Product Size: 1000 mg Product Wasted: ___ mg Vancomycin 2019-0 No 2000 mg: Me moria 6-02 infuse l 01:00: over 2.5 [place] 00 hours For adult patients only: Round to nearest 250 mg per Medical Staff approval MEDICATION WASTE Product Size: 1000 mg Product Wasted: ___ mg cefepime 2019-0 No Notes: Memoria - (Same As: l 01:00: Maxipime) MEDICATION WASTE Product Size: 1000 mg Product Wasted: ___ mg Tylenol 2019-0 No Notes: Do Memor ia - not exceed l 00:49: 4 gm/day. (Same as: Tylenol) Tylenol 2019-0 No Notes: Do Memor ia - not exceed l 00:49: 4 gm/day. (Same as: Tylenol) metoprolol 2019-0 No Notes: Memor ia tartrate 6-01 (Same as: l 22:12: Lopressor) metoprolol No Notes: Memor ia tartrate 6-01 (Same as: l 22:12: Lopressor) Lasix No Notes: Memoria 6-01 (Same as: l 22:00: Lasix) March cause GI upset. Give with food or milk. Nifedipine No Notes: Memor ia 10 MG Oral 6-01 (Same as: l Capsule 22:00: Adalat, [place] 00 Procardia) "Avoid grapefruit and grapefruit juice Lasix No Notes: Memoria 6-01 (Same as: l 22:00: Lasix) March cause GI upset. Give with food or milk. Nifedipine No Notes: Memor ia 10 MG Oral 6-01 (Same as: l Capsule 22:00: Adalat, [place] 00 Procardia) "Avoid grapefruit and grapefruit juice Hydralazine No Notes: Rui jessa Hydrochlori 6-01 (Same as: l de 50 MG 21:00: Apresoline Her agudelo Oral Tablet 00 ) May interfere w/enteral feedings Take With Food Hydralazine No Notes: Rui jessa Hydrochlori 6-01 (Same as: l de 50 MG 21:00: Apresoline Her agudelo Oral Tablet 00 ) May interfere w/enteral feedings Take With Food msg to RN 0 No msg to RN, Me moria 04-10 pls update l 17:05: pt ht wt in [facility], Drug form: MISC, Route: MISC, ONCE, 04/10/20 12:05:00 CDT, Stop date: 04/10/20 12:05:00 CDT, 0 msg to RN No msg to RN, Me moria 04-10 pls update l 17:05: pt ht wt in [facility], Drug form: MISC, Route: MISC, ONCE, 04/10/20 12:05:00 CDT, Stop date: 04/10/20 12:05:00 CDT, 0 heparin No 10,000 Memoria 6-01 unit, 10 l 17:00: mL, Route: [place] 00 DIALYSIS, Drug form: INJ, ONCALL, Dosing Weight 54.545, kg, Start date: 04/10/20 12:00:00 CDT, Duration: 1 doses or times, 0 heparin 2020-0 No 10,000 Memoria 6-01 unit, 10 l 17:00: mL, Route: [place] 00 DIALYSIS, Drug form: INJ, ONCALL, Dosing Weight 54.545, kg, Start date: 04/10/20 12:00:00 CDT, Duration: 1 doses or times, 0 Vancomycin 2020-0 No 2001 mg: Me moria Pharmacy 6- infuse l Dosing 16:00: over 2.5 [place] 00 hours For adult patients only: Round to nearest 250 mg per Medical Staff approval MEDICATION WASTE Product Size: 1000 mg Product Wasted: ___ mg Vancomycin 2020-0 No 2000 mg: Me moria Pharmacy 6- infuse l Dosing 16:00: over 2.5 [place] 00 hours For adult patients only: Round to nearest 250 mg per Medical Staff approval MEDICATION WASTE Product Size: 1000 mg Product Wasted: ___ mg metoprolol 2020-0 No Notes: Memor ia tartrate 6- (Same as: l 14:00: Lopressor) metoprolol 2020-0 No Notes: Memor ia tartrate 6- (Same as: l 14:00: Lopressor) Vancomycin 2020-0 No 2000 mg: Me moria 6-01 infuse l 13:00: over 2.5 [place] 00 hours For adult patients only: Round to nearest 250 mg per Medical Staff approval MEDICATION WASTE Product Size: 1000 mg Product Wasted: ___ mg vancomycin 2020-0 No 2001 mg: Me moria + Sodium 6- infuse l Chloride 13:00: over 2.5 Yani nn 0.9% IV 250 00 hours For mL adult patients only: Round to nearest 250 mg per Medical Staff approval MEDICATION WASTE Product Size: 1000 mg Product Wasted: ___ mg Vancomycin 2020-0 No 2001 mg: Me moria 6-01 infuse l 13:00: over 2.5 [place] 00 hours For adult patients only: Round to nearest 250 mg per Medical Staff approval MEDICATION WASTE Product Size: 1000 mg Product Wasted: ___ mg vancomycin 2020-0 No 2000 mg: Me moria + Sodium 6- infuse l Chloride 13:00: over 2.5 Yani nn 0.9% IV 250 00 hours For mL adult patients only: Round to nearest 250 mg per Medical Staff approval MEDICATION WASTE Product Size: 1000 mg Product Wasted: ___ mg Dextrose 2020-0 No 12.5 gm, Memor ia 50% Syringe 6- 25 mL, l (D50W) 12:29: Route: [place] 00 IVP, Drug Form: INJ, Dosing Weight 54.545, kg, PRN, PRN Blood Glucose Results, Start date: 04/10/20 7:29:00 CDT, Duration: 30 day, Stop date: 05/10/20 7:28:00 CDT, 0 Glucagon 2020-0 No 1 mg, Memoria 04-10 Route: IM, l 12:29: Drug form: [place] 00 PDR/INJ, PRN, Dosing Weight 54.545, kg, PRN Blood Glucose Results, Start date: 04/10/20 7:29:00 CDT, Duration: 30 day, Stop date: 05/10/20 7:28:00 CDT, 0 Bisacodyl 2020-0 No Notes: Memori a - (Same As: l 12:29: Dulcolax, Bisco-Lax) Ondansetron 2020-0 No Notes: Rui jessa - (Same as: l 12:29: Zofran) MEDICATION WASTE Product Size: 4 mg Product Wasted: ___ mg Dextrose 2020-0 No 12.5 gm, Memor ia 50% Syringe 6- 25 mL, l ([id number]) 12:29: Route: [place] 00 IVP, Drug Form: INJ, Dosing Weight 54.545, kg, PRN, PRN Blood Glucose Results, Start date: 04/10/20 7:29:00 CDT, Duration: 30 day, Stop date: 05/10/20 7:28:00 CDT, 0 Glucagon 2020-0 No 1 mg, Memoria 6- Route: IM, l 12:29: Drug form: [place] 00 PDR/INJ, PRN, Dosing Weight 54.545, kg, PRN Blood Glucose Results, Start date: 04/10/20 7:29:00 CDT, Duration: 30 day, Stop date: 05/10/20 7:28:00 CDT, 0 Bisacodyl 2019-0 No Notes: Memori a 04-10 (Same As: l 12:29: Dulcolax, Bisco-Lax) Ondansetron 0 No Notes: Rui jessa 04-10 (Same as: l 12:29: Zofran) MEDICATION WASTE Product Size: 4 mg Product Wasted: ___ mg Vancomycin 0 No 1.5 gm, Rui jessa 04-10 Route: l 12:22: IVPB, Drug form: INJ, ONCE, Dosing Weight 54.545, kg, Priority: STAT, Start date: 04/10/20 7:22:00 CDT, Stop date: 04/10/20 7:22:00 CDT, ABX Indication : Pneumonia cefepime 0 No Notes: Memoria 04-10 (Same As: l 12:22: Maxipime) MEDICATION WASTE Product Size: 1000 mg Product Wasted: ___ mg Vancomycin 0 No 1.5 gm, Rui jessa 04-10 Route: l 12:22: IVPB, Drug form: INJ, ONCE, Dosing Weight 54.545, kg, Priority: STAT, Start date: 04/10/20 7:22:00 CDT, Stop date: 04/10/20 7:22:00 CDT, ABX Indication : Pneumonia cefepime 2019-0 No Notes: Memoria 04-10 (Same As: l 12:22: Maxipime) MEDICATION WASTE Product Size: 1000 mg Product Wasted: ___ mg Nitroglycer No Notes: Rui jessa in 04-10 (Same l 11:03: as:Tridil) Final conc = 0.4 mg/ml. Premix bottle. Nitroglycer 0 No Notes: Rui jessa in 04-10 (Same l 11:03: as:Tridil) Final conc = 0.4 mg/ml. Premix bottle. Lasix 2020-0 No 80 mg, Memoria 04-10 Route: l 11:01: IVP, Drug form: INJ, ONCE, Dosing Weight 54.545, kg, Priority: STAT, Start date: 04/10/20 6:01:00 CDT, Stop date: 04/10/20 6:01:00 CDT Lasix 2020-0 No 80 mg, Memoria 04-10 Route: l 11:01: IVP, Drug form: INJ, ONCE, Dosing Weight 54.545, kg, Priority: STAT, Start date: 04/10/20 6:01:00 CDT, Stop date: 04/10/20 6:01:00 CDT Nitroglycer 2020-0 No 100 mg, Mem oria in 04-10 250 mL, l 11:00: Rate: [place] 00 Titrate 200, Start Dose: 10 microgram/ min, Titration: 10 microgram/ min every 5 minutes, Goal(s): Chest pain and SBP between 100 - 150 mmHg, Max Dose: 200 mcg/min, Route: IV, Dosing Weight 54.545 kg, Total Volume: 250, Start date:... Nitroglycer 2020-0 No 100 mg, Mem oria in 04-10 250 mL, l 11:00: Rate: [place] 00 Titrate 200, Start Dose: 10 microgram/ min, Titration: 10 microgram/ min every 5 minutes, Goal(s): Chest pain and SBP between 100 - 150 mmHg, Max Dose: 200 mcg/min, Route: IV, Dosing Weight 54.545 kg, Total Volume: 250, Start date:... Nitroglycer 2020-0 No 0.4 mg, Mem oria in 04-10 Route: SL, l 10:59: ONCE, Dosing Weight 54.545, kg, Start date: 04/10/20 5:59:00 CDT, Stop date: 04/10/20 5:59:00 CDT Nitroglycer 2020-0 No 0.4 mg, Mem oria in 04-10 Route: SL, l 10:59: ONCE, Dosing Weight 54.545, kg, Start date: 04/10/20 5:59:00 CDT, Stop date: 04/10/20 5:59:00 CDT Nitroglycer 2020-0 No 0.4 mg, Mem oria in 04-10 Route: SL, l 10:58: ONCE, [place] Dosing Weight 54.545, kg, Start date: 04/10/20 5:58:00 CDT, Stop date: 04/10/20 5:58:00 CDT Nitroglycer 2020-0 No 0.4 mg, Mem oria in 04-10 Route: SL, l 10:58: ONCE, [place] Dosing Weight 54.545, kg, Start date: 04/10/20 5:58:00 CDT, Stop date: 04/10/20 5:58:00 CDT Hydralazine 2020-0 Yes 50 mg = 1 M emoria Hydrochlori 5-14 tab, PO, l de 50 MG 15:52: Q8H, # 90 Herm nancy Oral Tablet 00 tab, 0 Refill(s), Pharmacy: [facility] #[id number] metoprolol 2020-0 Yes 25 mg = 1 Me moria tartrate 25 5-14 tab, PO, l mg oral 15:52: Q12H, # 60 Herm nancy tablet 00 tab, 0 Refill(s), Pharmacy: [facility] #[id number] Nifedipine 2020-0 Yes 30 mg = 3 Me moria 10 MG Oral 5-14 cap, PO, l Capsule 15:52: TID, # 270 Herm nancy 00 cap, 0 Refill(s), Pharmacy: [facility] #[id number] Sulfamethox 2020-0 Yes 1 tab, PO, Memoria azole 800 5-14 Q-M-W-F, X l MG / 15:52: 30 day, # [place] Trimethopri 00 13 tab, 0 m 160 MG Refill(s), Oral Tablet Pharmacy: [Bactrim] [facility] #[id number] Furosemide 2020-0 Yes 80 mg = 1 Me moria 80 MG Oral 5-14 tab, PO, l Tablet 15:52: BID, # 60 Mikhail n [Lasix] 00 tab, 0 Refill(s), Pharmacy: [facility] #[id number] Hydralazine 2020-0 Yes 50 mg = 1 M emoria Hydrochlori 5-14 tab, PO, l de 50 MG 15:52: Q8H, # 90 Herm nancy Oral Tablet 00 tab, 0 Refill(s), Pharmacy: [facility] #[id number] metoprolol 2020-0 Yes 25 mg = 1 Me moria tartrate 25 5-14 tab, PO, l mg oral 15:52: Q12H, # 60 Herm nancy tablet 00 tab, 0 Refill(s), Pharmacy: [facility] #[id number] Nifedipine 2020-0 Yes 30 mg = 3 Me moria 10 MG Oral 5-14 cap, PO, l Capsule 15:52: TID, # 270 Herm nancy 00 cap, 0 Refill(s), Pharmacy: [facility] #[id number] Sulfamethox 2020-0 Yes 1 tab, PO, Memoria azole 800 5-14 Q-M-W-F, X l MG / 15:52: 30 day, # [place] Trimethopri 00 13 tab, 0 m 160 MG Refill(s), Oral Tablet Pharmacy: [Bactrim] [facility] #[id number] Furosemide 2019-0 Yes 80 mg = 1 Me moria 80 MG Oral 5-14 tab, PO, l Tablet 15:52: BID, # 60 Mikhail n [Lasix] 00 tab, 0 Refill(s), Pharmacy: [facility] #[id number] Epogen 2019-0 No Notes: Memoria - (Same as: l 23:00: Procrit) [place] epoetin sandra 2000 unit/1 ml VL Non-formul john For dialysis use only (Epogen) WASTE: F/P - Red; E -Red MEDICATION WASTE Product Size: 2000 mg Product Wasted: ___ mg Epogen 2019-0 No Notes: Memoria -13 (Same as: l 23:00: Procrit) [place] 00 epoetin sandra 2000 unit/1 ml VL Non-formul john For dialysis use only (Epogen) WASTE: F/P - Red; E -Red MEDICATION WASTE Product Size: 2000 mg Product Wasted: ___ mg Sodium 2019-0 No 1,000 mL, Memori a Chloride - 1,000 l 0.9% 15:42: ml/hr, [place] (Bolus) IV 00 Infuse Over: 1 hr, Route: IV, 1,000, Drug form: INJ, ONCE, Priority: STAT, Dosing Weight 65.006 kg, Start date: 03/22/20 10:42:00 CDT, Stop date: 03/22/20 10:42:00 CDT, 0 Sodium 2020-0 No 1,000 mL, Memori a Chloride 5-13 1,000 l 0.9% 15:42: ml/hr, [place] (Bolus) IV 00 Infuse Over: 1 hr, Route: IV, 1,000, Drug form: INJ, ONCE, Priority: STAT, Dosing Weight 65.006 kg, Start date: 03/22/20 10:42:00 CDT, Stop date: 03/22/20 10:42:00 CDT, 0 heparin 2020-0 No 10,000 Memoria 5-13 unit, 10 l 15:01: mL, Route: [place] 00 DIALYSIS, Drug form: INJ, ONCALL, Dosing Weight 65.006, kg, PRN Dialysis, Priority: STAT, Start date: 03/22/20 10:01:00 CDT, Duration: 1 doses or times, Stop date: Limited # of times, 0 heparin 2020-0 No 10,000 Memoria 5-13 unit, 10 l 15:01: mL, Route: [place] 00 DIALYSIS, Drug form: INJ, ONCALL, Dosing Weight 65.006, kg, PRN Dialysis, Priority: STAT, Start date: 03/22/20 10:01:00 CDT, Duration: 1 doses or times, Stop date: Limited # of times, 0 Sulfamethox 2020-0 No Notes: One Memoria azole 800 5-13 DS tablet l MG / 14:00: = [place] Trimethopri 00 trimethopr m 160 MG im 160mg + Oral Tablet sulfametho [Bactrim] xazole 800 mg Dose based on trimethopr im component On empty stomach with a glass of water. (Same As: Bactrim DS, Septra DS) Sulfamethox 2020-0 No Notes: One Memoria azole 800 5-13 DS tablet l MG / 14:00: = [place] Trimethopri 00 trimethopr m 160 MG im 160mg + Oral Tablet sulfametho [Bactrim] xazole 800 mg Dose based on trimethopr im component On empty stomach with a glass of water. (Same As: Bactrim DS, Septra DS) Lasix 2020-0 No Notes: Memoria 5-12 (Same as: l 21:00: Lasix) [place] MEDICATION WASTE Product Size: 40 mg Product Wasted: ___ mg Lasix 2020-0 No Notes: Memoria 5-12 (Same as: l 21:00: Lasix) [place] 00 MEDICATION WASTE Product Size: 40 mg Product Wasted: ___ mg cyclophosph 2020-0 No Notes: Rui jessa amide + 5-12 WASTE: F/P l Sodium 20:00: - Black; E Yani nn Chloride 00 Yellow 0.9% IV 250 MEDICATION mL WASTE Product Size: 500 mg Product Wasted: ___ mg cyclophosph 2020-0 No Notes: Rui jessa amide + 5-12 WASTE: F/P l Sodium 20:00: - Black; E Yani nn Chloride 00 Yellow 0.9% IV 250 MEDICATION mL WASTE Product Size: 500 mg Product Wasted: ___ mg Famotidine 2020-0 No 20 mg, 1 Mem oria 20 MG Oral 5-12 tab, l Tablet 14:00: Route: PO, Yani nn [Pepcid] 00 Drug form: TAB, Daily, Dosing Weight 65.006, kg, Start date: 03/21/20 9:00:00 CDT, Duration: 30 day, Stop date: 04/19/20 9:00:00 CDT Famotidine 2020-0 No 20 mg, 1 Mem oria 20 MG Oral 5-12 tab, l Tablet 14:00: Route: PO, Yani nn [Pepcid] 00 Drug form: TAB, Daily, Dosing Weight 65.006, kg, Start date: 03/21/20 9:00:00 CDT, Duration: 30 day, Stop date: 04/19/20 9:00:00 CDT heparin 2020-0 No 10,000 Memoria 5-12 unit, 10 l 12:48: mL, Route: DIALYSIS, Drug form: INJ, ONCALL, Dosing Weight 65.006, kg, PRN Dialysis, Priority: STAT, Start date: 03/21/20 7:48:00 CDT, Duration: 1 doses or times, Stop date: Limited # of times, 0 Sodium 2020-0 No 1,000 mL, Memori a Chloride 5-12 1,000 l 0.9% 12:48: ml/hr, [place] (Bolus) IV 00 Infuse Over: 1 hr, Route: IV, 1,000, Drug form: INJ, ONCE, Priority: STAT, Dosing Weight 65.006 kg, Start date: 03/21/20 7:48:00 CDT, Stop date: 03/21/20 7:48:00 CDT, 0 heparin 2020-0 No 10,000 Memoria 5-12 unit, 10 l 12:48: mL, Route: [place] 00 DIALYSIS, Drug form: INJ, ONCALL, Dosing Weight 65.006, kg, PRN Dialysis, Priority: STAT, Start date: 03/21/20 7:48:00 CDT, Duration: 1 doses or times, Stop date: Limited # of times, 0 Sodium 2020-0 No 1,000 mL, Memori a Chloride 5-12 1,000 l 0.9% 12:48: ml/hr, [place] (Bolus) IV 00 Infuse Over: 1 hr, Route: IV, 1,000, Drug form: INJ, ONCE, Priority: STAT, Dosing Weight 65.006 kg, Start date: 03/21/20 7:48:00 CDT, Stop date: 03/21/20 7:48:00 CDT, 0 Morphine 2020-0 No 2 mg, 1 Memori a 5-11 mL, Route: l 21:36: IVP, Drug [place] form: SOLN, ONCE, Dosing Weight 65.006, kg, Start date: 03/20/20 16:36:00 CDT, Stop date: 03/20/20 16:36:00 CDT, 0 Morphine 2020-0 No 2 mg, 1 Memori a 5-11 mL, Route: l 21:36: IVP, Drug [place] 00 form: SOLN, ONCE, Dosing Weight 65.006, kg, Start date: 03/20/20 16:36:00 CDT, Stop date: 03/20/20 16:36:00 CDT, 0 Sodium 2020-0 No 500 mL, Memoria Chloride 5-11 500 ml/hr, l 0.9% 17:34: Infuse [place] (Bolus) IV 00 Over: 1 hr, Route: IV, 500, Drug form: INJ, PRN, Dosing Weight 65.006 kg, Start date: 03/20/20 12:34:00 CDT, Duration: 1 doses or times, Stop date: Limited # of times, PRN Dialysis, 0 Mannitol 2020-0 No Notes: Memoria 5-11 (Same as: l 17:34: Osmitrol) [place] 00 Infuse through 5 micron or smaller filter WASTE: F/P - Sink; E - Municipal Trash Bin Sodium 2020-0 No 500 mL, Memoria Chloride 5-11 500 ml/hr, l 0.9% 17:34: Infuse [place] (Bolus) IV 00 Over: 1 hr, Route: IV, 500, Drug form: INJ, PRN, Dosing Weight 65.006 kg, Start date: 03/20/20 12:34:00 CDT, Duration: 1 doses or times, Stop date: Limited # of times, PRN Dialysis, 0 Mannitol 2020-0 No Notes: Memoria 5-11 (Same as: l 17:34: Osmitrol) [place] 00 Infuse through 5 micron or smaller filter WASTE: F/P - Sink; E - Municipal Trash Bin Procardia 2020-0 No Notes: Memori a 5-11 (Same as: l 15:00: Adalat, [place] 00 Procardia) "Avoid grapefruit and grapefruit juice Procardia 2019-0 No Notes: Memori a 5-11 (Same as: l 15:00: Adalat, [place] 00 Procardia) "Avoid grapefruit and grapefruit juice NIFEdipine 2020-0 No Notes: Memor ia 90 mg oral 5-11 (Same as: l tablet, 14:00: Adalat [place] extended 00 CC,Procard release ia XL) "Do Not Crush" "Avoid grapefruit and grapefruit juice" NIFEdipine 2020-0 No Notes: Memor ia 90 mg oral 5-11 (Same as: l tablet, 14:00: Adalat [place] extended 00 CC,Procard release ia XL) "Do Not Crush" "Avoid grapefruit and grapefruit juice" Lasix 2020-0 No Notes: Memoria 5-10 (Same as: l 21:00: Lasix) [place] 00 MEDICATION WASTE Product Size: 40 mg Product Wasted: ___ mg Lasix 2020-0 No Notes: Memoria 5-10 (Same as: l 21:00: Lasix) [place] 00 MEDICATION WASTE Product Size: 40 mg Product Wasted: ___ mg Furosemide 2020-0 No Notes: Memor ia 5-10 (Same as: l 20:35: Lasix) [place] 00 MEDICATION WASTE Product Size: 100 mg Product Wasted: ___ mg Clonidine 2020-0 No Notes: Memori a Hydrochlori 5-10 (Same As: l de 0.2 MG 20:35: Catapres) Her agudelo Oral Tablet 00 Furosemide 2019-0 No Notes: Memor ia 5-10 (Same as: l 20:35: Lasix) [place] 00 MEDICATION WASTE Product Size: 100 mg Product Wasted: ___ mg Clonidine 2020-0 No Notes: Memori a Hydrochlori 5-10 (Same As: l de 0.2 MG 20:35: Catapres) Her agudelo Oral Tablet 00 Lasix 2019-0 No Notes: Memoria 5-10 (Same as: l 20:34: Lasix) [place] 00 MEDICATION WASTE Product Size: 40 mg Product Wasted: ___ mg Lasix 2020-0 No Notes: Memoria 5-10 (Same as: l 20:34: Lasix) MEDICATION WASTE Product Size: 40 mg Product Wasted: ___ mg Hydralazine 2020-0 No Notes: Rui jessa Hydrochlori 5-10 (Same as: l de 50 MG 20:08: Apresoline Her agudelo Oral Tablet 00 ) May interfere w/enteral feedings Take With Food Hydralazine 2020-0 No Notes: Rui jessa Hydrochlori 5-10 (Same as: l de 50 MG 20:08: Apresoline Her agudelo Oral Tablet 00 ) May interfere w/enteral feedings Take With Food Amlodipine 2019-0 No Notes: Memor ia 5-10 (Same as: l 20:07: Norvasc) Amlodipine 2019-0 No Notes: Memor ia 5-10 (Same as: l 20:07: Norvasc) Hydralazine 2019-0 No Notes: Rui jessa 5-10 (Same as: l 18:03: Apresoline [place] ) Push over 5 minutes Hydralazine No Notes: Rui jessa 5-10 (Same as: l 18:03: Apresoline [place] ) Push over 5 minutes Hydroxychlo No Notes: Rui jessa roquine 5-10 (Same as: l Sulfate 200 14:00: Plaquenil) [place] MG Oral 00 Hydroxychl Tablet oroquine sulfate 200 mg = 155 mg hydroxychl oroquine base. If treating malaria, verify dose as salt vs. base per CDC guideline metoprolol 2020-0 No Notes: Memor ia tartrate 5-10 (Same as: l 14:00: Lopressor) [place] 00 Protonix No Notes: Memoria 5-10 Tablet l 14:00: should not [place] 00 be chewed or crushed. (Same as: Protonix) Prednisone No Notes: Memor ia 5-10 Take with l 14:00: food. [place] 00 Hydroxychlo No Notes: Rui jessa roquine 5-10 (Same as: l Sulfate 200 14:00: Plaquenil) [place] MG Oral 00 Hydroxychl Tablet oroquine sulfate 200 mg = 155 mg hydroxychl oroquine base. If treating malaria, verify dose as salt vs. base per CDC guideline metoprolol 2020-0 No Notes: Memor ia tartrate 5-10 (Same as: l 14:00: Lopressor) [place] 00 Protonix No Notes: Memoria 5-10 Tablet l 14:00: should not [place] 00 be chewed or crushed. (Same as: Protonix) Prednisone 0 No Notes: Memor ia 5-10 Take with l 14:00: food. heparin 2019- No Notes: Memoria 5-10 porcine l 13:00: heparin [place] 00 Lasix No Notes: Memoria 5-10 (Same as: l 13:00: Lasix) MEDICATION WASTE Product Size: 40 mg Product Wasted: ___ mg heparin 2019- No Notes: Memoria 5-10 porcine l 13:00: heparin [place] Lasix 2020-0 No Notes: Memoria 5-10 (Same as: l 13:00: Lasix) [place] 00 MEDICATION WASTE Product Size: 40 mg Product Wasted: ___ mg Ondansetron 2020-0 No Notes: Rui jessa 5-10 (Same as: l 03:32: Zofran) [place] 00 MEDICATION WASTE Product Size: 4 mg Product Wasted: ___ mg Acetaminoph 2020-0 No Notes: Do M emoria en 5-10 not exceed l 03:32: 4 gm/day. [place] 00 (Same as: Tylenol) Ondansetron 2020-0 No Notes: Rui jessa 5-10 (Same as: l 03:32: Zofran) [place] 00 MEDICATION WASTE Product Size: 4 mg Product Wasted: ___ mg Acetaminoph 2020-0 No Notes: Do M emoria en 5-10 not exceed l 03:32: 4 gm/day. [place] 00 (Same as: Tylenol) Lasix 2020-0 No Notes: Memoria 5-10 (Same as: l 02:14: Lasix) [place] 00 MEDICATION WASTE Product Size: 40 mg Product Wasted: ___ mg Lasix 2020-0 No Notes: Memoria 5-10 (Same as: l 02:14: Lasix) [place] 00 MEDICATION WASTE Product Size: 40 mg Product Wasted: ___ mg Furosemide 2020-0 Yes 20 mg = 1 Me moria 20 MG Oral 3-19 tab, PO, l Tablet 19:14: Daily, as Mikhail n [Lasix] 00 needed for fluid overload, # 15 tab, 0 Refill(s), Pharmacy: [facility] #[id number] Furosemide 2020-0 Yes 20 mg = 1 Me moria 20 MG Oral 3-19 tab, PO, l Tablet 19:14: Daily, as Mikhail n [Lasix] 00 needed for fluid overload, # 15 tab, 0 Refill(s), Pharmacy: [facility] #[id number] Hydroxychlo 2020-0 No Notes: Rui jessa roquine 3-19 (Same as: l Sulfate 200 14:00: Plaquenil) [place] MG Oral 00 Hydroxychl Tablet oroquine sulfate 200 mg = 155 mg hydroxychl oroquine base. If treating malaria, verify dose as salt vs. base per CDC guideline Prednisone 2020-0 No Notes: Memor ia 3-19 Take with l 14:00: food. [place] 00 hydroxychlo 2020-0 No Notes: Rui jessa roquine 3-19 (Same as: l 200mg 14:00: Plaquenil) Mikhail n tablet 00 Hydroxychl oroquine sulfate 200 mg = 155 mg hydroxychl oroquine base. If treating malaria, verify dose as salt vs. base per CDC guideline Hydroxychlo 2020-0 No Notes: Rui jessa roquine 3-19 (Same as: l Sulfate 200 14:00: Plaquenil) [place] MG Oral 00 Hydroxychl Tablet oroquine sulfate 200 mg = 155 mg hydroxychl oroquine base. If treating malaria, verify dose as salt vs. base per CDC guideline Prednisone 2020-0 No Notes: Memor ia 3-19 Take with l 14:00: food. [place] 00 hydroxychlo 2019-0 No Notes: Rui jessa roquine 3-19 (Same as: l 200mg 14:00: Plaquenil) Mikhail n tablet 00 Hydroxychl oroquine sulfate 200 mg = 155 mg hydroxychl oroquine base. If treating malaria, verify dose as salt vs. base per CDC guideline Protonix 2020-0 No Notes: Memoria 3-19 Tablet l 12:30: should not [place] 00 be chewed or crushed. (Same as: Protonix) Protonix 2020-0 No Notes: Memoria 3-19 Tablet l 12:30: should not [place] 00 be chewed or crushed. (Same as: Protonix) Amlodipine 2019-0 No Notes: Memor ia 3-19 (Same as: l 11:00: Norvasc) [place] 00 Amlodipine 2019-0 No Notes: Memor ia 3-19 (Same as: l 11:00: Norvasc) Tylenol 2019-0 No Notes: Do Memor ia 3-19 not exceed l 10:37: 4 gm/day. [place] 00 (Same as: Tylenol) Tylenol 2019-0 No Notes: Do Memor ia 3-19 not exceed l 10:37: 4 gm/day. [place] 00 (Same as: Tylenol) Docusate 2019-0 No Notes: Memoria 3-18 (Same as: l 14:00: Colace) [place] 00 (Do Not Crush) Furosemide 2020-0 No Notes: Memor ia 3-18 (Same as: l 14:00: Lasix) [place] 00 MEDICATION WASTE Product Size: 40 mg Product Wasted: ___ mg Saline 2020-0 No Notes: Memoria Flush 0.9% 3-18 (Same as: l 14:00: BD [place] 00 Posiflush) Docusate 2020-0 No Notes: Memoria 3-18 (Same as: l 14:00: Colace) [place] 00 (Do Not Crush) Furosemide 2020-0 No Notes: Memor ia 3-18 (Same as: l 14:00: Lasix) [place] 00 MEDICATION WASTE Product Size: 40 mg Product Wasted: ___ mg Saline 2020-0 No Notes: Memoria Flush 0.9% 3-18 (Same as: l 14:00: BD [place] 00 Posiflush) heparin 2020-0 No Notes: Memoria 3-18 porcine l 13:00: heparin [place] 00 heparin 2020-0 No Notes: Memoria 3-18 porcine l 13:00: heparin [place] 00 Lasix 2020-0 No Notes: Memoria 3-18 (Same as: l 08:55: Lasix) [place] 00 MEDICATION WASTE Product Size: 40 mg Product Wasted: ___ mg Lasix 2020-0 No Notes: Memoria 3-18 (Same as: l 08:55: Lasix) [place] MEDICATION WASTE Product Size: 40 mg Product Wasted: ___ mg Ondansetron 2020-0 No Notes: Rui jessa 3-18 (Same as: l 06:39: Zofran) [place] 00 MEDICATION WASTE Product Size: 4 mg Product Wasted: ___ mg Saline 2020-0 No Notes: Memoria Flush 0.9% 3-18 (Same as: l 06:39: BD [place] 00 Posiflush) Ondansetron 2020-0 No Notes: Rui jessa 3-18 (Same as: l 06:39: Zofran) [place] 00 MEDICATION WASTE Product Size: 4 mg Product Wasted: ___ mg Saline 2020-0 No Notes: Memoria Flush 0.9% 3-18 (Same as: l 06:39: BD Posiflush) Dextrose 2020-0 No 12.5 gm, Memor ia 50% Syringe 3-18 25 mL, l (D50W) 06:30: Route: IVP, Drug Form: INJ, Dosing Weight 57.955, kg, PRN, PRN Blood Glucose Results, Start date: 01/26/20 1:30:00 CDT, Duration: 30 day, Stop date: 02/25/20 1:29:00 CDT, 0 Glucagon 2020-0 No 1 mg, Memoria 3-18 Route: IM, l 06:30: Drug form: [place] 00 PDR/INJ, PRN, Dosing Weight 57.955, kg, PRN Blood Glucose Results, Start date: 01/26/20 1:30:00 CDT, Duration: 30 day, Stop date: 02/25/20 1:29:00 CDT, 0 Ondansetron 2019-0 No Notes: Rui jessa 3-18 (Same as: l 06:30: Zofran) MEDICATION WASTE Product Size: 4 mg Product Wasted: ___ mg Melatonin 2019-0 No Notes: Memori a 3-18 (Same as: l 06:30: Melatonin) Dextrose 2020-0 No 12.5 gm, Memor ia 50% Syringe 3-18 25 mL, l (D50W) 06:30: Route: IVP, Drug Form: INJ, Dosing Weight 57.955, kg, PRN, PRN Blood Glucose Results, Start date: 01/26/20 1:30:00 CDT, Duration: 30 day, Stop date: 02/25/20 1:29:00 CDT, 0 Glucagon 2020-0 No 1 mg, Memoria 3-18 Route: IM, l 06:30: Drug form: [place] 00 PDR/INJ, PRN, Dosing Weight 57.955, kg, PRN Blood Glucose Results, Start date: 01/26/20 1:30:00 CDT, Duration: 30 day, Stop date: 02/25/20 1:29:00 CDT, 0 Ondansetron 2020-0 No Notes: Rui jessa 3-18 (Same as: l 06:30: Zofran) MEDICATION WASTE Product Size: 4 mg Product Wasted: ___ mg Melatonin 2020-0 No Notes: Memori a 3-18 (Same as: l 06:30: Melatonin) promethazin 2020-0 Yes 50mg Take [address] [facility]: every Medic al 50 MG 00 night as Center tablet needed. promethazin 2020-0 Yes 50mg Take [address] [facility] ([facility] 00:00: every Medic al 50 MG 00 night as Center tablet needed. promethazin 2020-0 Yes 50mg Take [address] [facility] ([facility] 00:00: every Medic al 50 MG 00 night as Center tablet needed. promethazin 2020-0 Yes 50mg Take [address] [facility] ([facility]) 00:00: every Medic al 50 MG 00 night as Center tablet needed. amLODIPine 2020-0 Yes 10 mg = 2 Me moria 5 mg oral 2-28 tab, PO, l tablet 21:50: Daily, # [place] 00 60 tab, 1 Refill(s), Pharmacy: [facility] #[id number] Bactrim 2020-0 Yes = 10 mL, Memori a Pediatric 2-28 PO, l 200 mg-40 21:50: [id number], X He rmann mg/5 mL 30 day, # oral 300 mL, 0 suspension Refill(s), Pharmacy: [facility] #[id number] Famotidine 2020-0 Yes 20 mg = 1 Me moria 20 MG Oral 2-28 tab, PO, l Tablet 21:50: Daily, # [place] [Pepcid] 00 30 tab, 0 Refill(s), Pharmacy: [facility] #[id number] amLODIPine 2020-0 Yes 10 mg = 2 Me moria 5 mg oral 2-28 tab, PO, l tablet 21:50: Daily, # [place] 00 60 tab, 1 Refill(s), Pharmacy: [facility] #[id number] Bactrim 2020-0 Yes = 10 mL, Memori a Pediatric 2-28 PO, l 200 mg-40 21:50: [id number], X He rmann mg/5 mL 00 30 day, # oral 300 mL, 0 suspension Refill(s), Pharmacy: [facility] #[id number] Famotidine Yes 20 mg = 1 Me moria 20 MG Oral 2-28 tab, PO, l Tablet 21:50: Daily, # [place] [Pepcid] 00 30 tab, 0 Refill(s), [facility][id number] Hydralazine No Notes: Rui jessa Hydrochlori 2-28 (Same as: l de 50 MG 19:53: Apresoline Her agudelo Oral Tablet 00 ) May interfere w/enteral feedings Take With Food Hydralazine 2019- No Notes: Rui jessa Hydrochlori 2-28 (Same as: l de 50 MG 19:53: Apresoline Her agudelo Oral Tablet 00 ) May interfere w/enteral feedings Take With Food Norvasc No Notes: Memoria 2-28 (Same as: l 17:07: Norvasc) [place] Norvasc No Notes: Memoria 2-28 (Same as: l 17:07: Norvasc) [place] cyclophosph No Notes: Rui jessa amide + 2-27 WASTE: F/P l Sodium 20:00: - Black; E Yani nn Chloride 00 Yellow 0.9% IV 250 MEDICATION mL WASTE Product Size: 500 mg Product Wasted: ___ mg Sodium No 500 mL, Memoria Chloride 2-27 IV, 0 l 0.9% IV 20:00: ml/hr, [place] 00 ONCALL, Start date: 01/06/20 14:00:00 [employer], Duration: 1, 500 ml cyclophosph No Notes: Rui jessa amide + 2-27 WASTE: F/P l Sodium 20:00: - Black; E Yani nn Chloride 00 Yellow 0.9% IV 250 MEDICATION mL WASTE Product Size: 500 mg Product Wasted: ___ mg Sodium No 500 mL, Memoria Chloride 2-27 IV, 0 l 0.9% IV 20:00: ml/hr, [place] 00 ONCALL, Start date: 01/06/20 14:00:00 [employer], Duration: 1, 500 ml Calcium 2019-0 No Notes: Memoria Carbonate 2-27 (Same As: l 18:00: Tums) Calcium Carbonate 500 mg = 200 mg elemental calcium Dose = mg calcium carbonate ( mg elemental calcium) Calcium 2019-0 No Notes: Memoria Carbonate 2-27 (Same As: l 18:00: Tums) Calcium Carbonate 500 mg = 200 mg elemental calcium Dose = mg calcium carbonate ( mg elemental calcium) Famotidine 2019- No Notes: Memor ia 20 MG Oral -27 (Same as: l Tablet 15:00: Pepcid) [place] [Pepcid] 00 Famotidine 2019-0 No Notes: Memor ia 20 MG Oral 2-27 (Same as: l Tablet 15:00: Pepcid) [place] [Pepcid] 00 Bactrim 2020-0 No 10 mL, Memoria 01-05 Route: PO, l 20:00: Drug Form: [place] SUSP, Dosing Weight 56.591, kg, [id number], Start date: 01/05/20 14:00:00 [employer], Duration: 30 day, Stop date: 02/03/20 14:00:00 CDT, 0 Bactrim 2020-0 No 10 mL, Memoria 01-05 Route: PO, l 20:00: Drug Form: [place] SUSP, Dosing Weight 56.591, kg, [id number], Start date: 01/05/20 14:00:00 [employer], Duration: 30 day, Stop date: 02/03/20 14:00:00 CDT, 0 Sulfamethox 2019-0 No Notes: Rui jessa azole 400 01-05 (trimethop l MG / 16:00: rim-sulfam [place] Trimethopri 00 ethoxazole m 80 MG 40-200 Oral Tablet mg/5 ml [Bactrim] 100 ml RAND) Dose based on trimethopr im component Shake well before use. On empty stomach w/a glass of water. Take 1 hour before or 2 hours after meal (Same As: Bactrim, Septra) Sulfamethox 2020-0 No Notes: Rui jessa azole 400 2-26 (trimethop l MG / 16:00: rim-sulfam Trimethopri 00 ethoxazole m 80 MG 40-200 Oral Tablet mg/5 ml [Bactrim] 100 ml RAND) Dose based on trimethopr im component Shake well before use. On empty stomach w/a glass of water. Take 1 hour before or 2 hours after meal (Same As: Bactrim, Septra) Hydroxychlo 2020-0 No Notes: Rui jessa roquine 2-26 (Same as: l Sulfate 200 15:00: Plaquenil) [place] MG Oral 00 Hydroxychl Tablet oroquine [Plaquenil] sulfate 200 mg = 155 mg hydroxychl oroquine base. If treating malaria, verify dose as salt vs. base per CDC guideline Hydroxychlo 2020-0 No Notes: Rui jessa roquine 2-26 (Same as: l Sulfate 200 15:00: Plaquenil) [place] MG Oral 00 Hydroxychl Tablet oroquine [Plaquenil] sulfate 200 mg = 155 mg hydroxychl oroquine base. If treating malaria, verify dose as salt vs. base per CDC guideline Magnesium 2020-0 No Notes: Memori a Sulfate 2-26 WASTE: F/P l 13:57: - Sink; E [place] 00 - Municipal Trash Bin Magnesium 2020-0 No Notes: Memori a Sulfate 2-26 WASTE: F/P l 13:57: - Sink; E [place] 00 - Municipal Trash Bin Prednisone 2020-0 No Notes: Memor ia 2-25 Take with l 17:00: food. Prednisone 2019-0 No Notes: Memor ia 2-25 Take with l 17:00: food. Protonix 2019-0 No Notes: For Mem oria 2-25 IV push l 05:00: reconstitu [place] 00 te with 10 ml 0.9% sodium chloride and push over 2 minutes. (Same as: Protonix) heparin 2019-0 No Notes: Memoria 2-25 porcine l 05:00: heparin Protonix 2019-0 No Notes: For Mem oria 2-25 IV push l 05:00: reconstitu [place] 00 te with 10 ml 0.9% sodium chloride and push over 2 minutes. (Same as: Protonix) heparin 2019-0 No Notes: Memoria 2-25 porcine l 05:00: heparin Tramadol 2019-0 No Notes: Not Mem oria 2-25 to exceed l 03:37: 400mg/day. (Same As: Ultram) Morphine 2019-0 No 1 mg, 0.5 Rui jessa 2-25 mL, Route: l 03:37: IVP, Drug form: SOLN, Q4H, Dosing Weight 56.591, kg, PRN Pain Score 7-10, Start date: 01/03/20 21:37:00 [employer], Duration: 5 day, Stop date: 01/08/20 21:36:00 [employer], 0 Dextrose 2019- No 12.5 gm, Memor ia 50% Syringe 2-25 25 mL, l (D50W) 03:37: Route: IVP, Drug Form: INJ, Dosing Weight 56.591, kg, PRN, PRN Blood Glucose Results, Start date: 01/03/20 21:37:00 [employer], Duration: 30 day, Stop date: 02/02/20 22:36:00 CDT, 0 Glucagon 2019- No 1 mg, Memoria 2-25 Route: IM, l 03:37: Drug form: PDR/INJ, PRN, Dosing Weight 56.591, kg, PRN Blood Glucose Results, Start date: 01/03/20 21:37:00 [employer], Duration: 30 day, Stop date: 02/02/20 22:36:00 CDT, 0 Bisacodyl 2019-0 No Notes: Memori a 2-25 (Same As: l 03:37: Dulcolax, Bisco-Lax) Ondansetron 2019-0 No Notes: Rui jessa 2-25 (Same as: l 03:37: Zofran) MEDICATION WASTE Product Size: 4 mg Product Wasted: ___ mg Melatonin 2019-0 No Notes: Memori a 2-25 (Same as: l 03:37: Melatonin) Acetaminoph 2019-0 No Notes: Do M emoria en 2-25 not exceed l 03:37: 4 gm/day. (Same as: Tylenol) Tramadol 2019- No Notes: Not Mem oria 2-25 to exceed l 03:37: 400mg/day. (Same As: Ultram) Morphine No 1 mg, 0.5 Rui jessa 2-25 mL, Route: l 03:37: IVP, Drug form: SOLN, Q4H, Dosing Weight 56.591, kg, PRN Pain Score 7-10, Start date: 01/03/20 21:37:00 [employer], Duration: 5 day, Stop date: 01/08/20 21:36:00 [employer], 0 Dextrose No 12.5 gm, Memor ia 50% Syringe 2-25 25 mL, l (D50W) 03:37: Route: IVP, Drug Form: INJ, Dosing Weight 56.591, kg, PRN, PRN Blood Glucose Results, Start date: 01/03/20 21:37:00 [employer], Duration: 30 day, Stop date: 02/02/20 22:36:00 CDT, 0 Glucagon No 1 mg, Memoria 2-25 Route: IM, l 03:37: Drug form: PDR/INJ, PRN, Dosing Weight 56.591, kg, PRN Blood Glucose Results, Start date: 01/03/20 21:37:00 [employer], Duration: 30 day, Stop date: 02/02/20 22:36:00 CDT, 0 Bisacodyl 2019-0 No Notes: Memori a 2-25 (Same As: l 03:37: Dulcolax, Bisco-Lax) Ondansetron No Notes: Rui jessa 2-25 (Same as: l 03:37: Zofran) MEDICATION WASTE Product Size: 4 mg Product Wasted: ___ mg Melatonin 2019-0 No Notes: Memori a 2-25 (Same as: l 03:37: Melatonin) Acetaminoph No Notes: Do M emoria en 2-25 not exceed l 03:37: 4 gm/day. (Same as: Tylenol) NS 0.45% IV 2019-0 No 1,000 mL, M emoria 1,000 mL 2-25 Rate: 75 l 03:32: ml/hr, [place] 00 Infuse over: 13.3 hr, Route: IV, Dosing Weight 56.591 kg, Total Volume: 1,000, Start date: 01/03/20 21:32:00 [employer], Duration: 24 hr, Stop date: 01/04/20 21:31:00 [employer], 1.63, m2, 0 Hydralazine 2020-0 No Notes: Uri jessa 2-25 (Same as: l 03:32: Apresoline ) Push over 5 minutes Clonidine 2020-0 No Notes: Memori a 2-25 (Same As: l 03:32: Catapres) NS 0.45% IV 2020-0 No 1,000 mL, Song emoria 1,000 mL 2-25 Rate: 75 l 03:32: ml/hr, Infuse over: 13.3 hr, Route: IV, Dosing Weight 56.591 kg, Total Volume: 1,000, Start date: 01/03/20 21:32:00 [employer], Duration: 24 hr, Stop date: 01/04/20 21:31:00 [employer], 1.63, m2, 0 Hydralazine 2020-0 No Notes: Rui jessa 2-25 (Same as: l 03:32: Apresoline ) Push over 5 minutes Clonidine 2020-0 No Notes: Memori a 2-25 (Same As: l 03:32: Catapres) Hydralazine 2020-0 No Notes: Rui jessa 2-25 (Same as: l 03:29: Apresoline ) Push over 5 minutes Hydralazine 2020-0 No Notes: Rui jessa 2-25 (Same as: l 03:29: Apresoline ) Push over 5 minutes Prednisone 2020-0 Yes 20 mg, PO, M emoria 2-25 Daily, l 02:19: Quantity sufficient , 0 Refill(s) Lisinopril 2020-0 No 10 mg, PO, M emoria 2-25 Daily, 0 l 02:19: Refill(s) Hydroxychlo 2020-0 Yes 200 mg, Mem oria roquine 2-25 PO, Daily, l 02:19: 0 [place] 00 Refill(s) Prednisone 2020-0 Yes 20 mg, PO, M emoria 2-25 Daily, l 02:19: Quantity sufficient , 0 Refill(s) Lisinopril 2020-0 No 10 mg, PO, M emoria 2-25 Daily, 0 l 02:19: Refill(s) Hydroxychlo 2019-0 Yes 200 mg, Mem oria roquine 2-25 PO, Daily, l 02:19: 0 Refill(s) normal 2019-0 No 1,000 mL, Memori a saline 0.9% 2-24 Rate: 125 l IV 1,000 mL 23:39: ml/hr, Herm nancy Infuse over: 8 hr, Route: IV, Dosing Weight 52.727 kg, Total Volume: 1,000, Priority: STAT, Start date: 01/03/20 17:39:00 [employer], Duration: 1 doses or times, Stop date: 01/04/20 1:38:00 [employer], 1.57, m2, 0 normal 2019-0 No 1,000 mL, Memori a saline 0.9% 2-24 Rate: 125 l IV 1,000 mL 23:39: ml/hr, Infuse over: 8 hr, Route: IV, Dosing Weight 52.727 kg, Total Volume: 1,000, Priority: STAT, Start date: 01/03/20 17:39:00 [employer], Duration: 1 doses or times, Stop date: 01/04/20 1:38:00 [employer], 1.57, m2, 0 Dexamethaso 2019-0 No Notes: Rui jessa ne 2-24 Concentrat l 21:55: ion: [place] 00 4mg/ml Ibuprofen No Notes: Memori a 2-24 (Same as: l 21:55: Motrin) "Do Not Crush" Take with food. Dexamethaso 2019-0 No Notes: Rui jessa ne 2-24 Concentrat l 21:55: ion: [place] 00 4mg/ml Ibuprofen 2019-0 No Notes: Memori a 2-24 (Same as: l 21:55: Motrin) "Do Not Crush" Take with food. pantoprazol 2018-11 Yes 40 mg = 1 M emoria e 40 MG 2-20 tab, PO, l Enteric 18:39: Daily, # Mikhail n Coated 00 30 tab, 0 Tablet Refill(s), [Protonix] Pharmacy: [facility] #[id number] Ciprofloxac 2018-11 Yes 500 mg = 1 Memoria in 500 MG 2-20 tab, PO, l Oral Tablet 18:39: Q12H, X 5 H ermann [Cipro] 00 day, # 10 tab, 0 Refill(s), Pharmacy: [facility] #[id number] Metronidazo 2018-11 Yes 500 mg = 1 Memoria le 500 MG 2-20 tab, PO, l Oral Tablet 18:39: Q8H, X 5 He rmann [Flagyl] 00 day, # 15 tab, 0 Refill(s), Pharmacy: [facility] #[id number] Amlodipine 2018-11 Yes 5 mg = 1 Mem oria 5 MG Oral 2-20 tab, PO, l Tablet 18:39: Daily, # [place] [Norvasc] 00 30 tab, 0 Refill(s), Pharmacy: [facility] #[id number] predniSONE 2018-11 Yes 40 mg = 2 Me moria 20 mg oral 2-20 tab, PO, l tablet 18:39: Daily, X [place] 00 14 day, # 28 tab, 0 Refill(s), Pharmacy: [facility] #[id number] tramadol 2018-11 Yes 50 mg = 1 Rui jessa hydrochlori 2-20 tab, PO, l de 50 MG 18:39: Q8H, PRN Yani nn Oral Tablet 00 Pain Score 4-6, X 5 day, # 20 tab, 0 Refill(s), Pharmacy: [facility] #[id number] pantoprazol 2018-11 Yes 40 mg = 1 M emoria e 40 MG 2-20 tab, PO, l Enteric 18:39: Daily, # Mikhail n Coated 00 30 tab, 0 Tablet Refill(s), [Protonix] Pharmacy: [facility] #[id number] Ciprofloxac 2018-11 Yes 500 mg = 1 Memoria in 500 MG 2-20 tab, PO, l Oral Tablet 18:39: Q12H, X 5 H ermann [Cipro] 00 day, # 10 tab, 0 Refill(s), Pharmacy: [facility] #[id number] Metronidazo 2018-11 Yes 500 mg = 1 Memoria le 500 MG 2-20 tab, PO, l Oral Tablet 18:39: Q8H, X 5 He r[place] [Flagyl] 00 day, # 15 tab, 0 Refill(s), Pharmacy: [facility] #[id number] Amlodipine 2018-11 Yes 5 mg = 1 Mem oria 5 MG Oral 2-20 tab, PO, l Tablet 18:39: Daily, # [place] [Norvasc] 00 30 tab, 0 Refill(s), [id number] predniSONE 2018-11 Yes 40 mg = 2 Me moria 20 mg oral 2-20 tab, PO, l tablet 18:39: Daily, X [place] 00 14 day, # 28 tab, 0 Refill(s), [id number] tramadol 2018-11 Yes 50 mg = 1 Rui jessa hydrochlori 2-20 tab, PO, l de 50 MG 18:39: Q8H, PRN Yani nn Oral Tablet 00 Pain Score 4-6, X 5 day, # 20 tab, 0 Refill(s), Pharmacy: [facility] #[id number] Norvasc 2018-11 No Notes: Memoria 2-20 (Same as: l 18:37: Norvasc) Norvasc 2018-11 No Notes: Memoria 2-20 (Same as: l 18:37: Norvasc) Cipro 2018-11 No Notes: Do Memoria 2-19 not l 22:00: refrigerat [place] e Cipro 2018-11 No Notes: Do Memoria 2-19 not l 22:00: refrigerat e Omeprazole 2018-11 No 20 mg, Memor ia 2-19 Route: PO, l 15:00: Daily, Dosing Weight 48.75, kg, Start date: 10/28/19 9:00:00 [employer], Duration: 30 day, Stop date: 11/26/19 9:00:00 [employer] Omeprazole 2018-11 No 20 mg, Memor ia 2-19 Route: PO, l 15:00: Daily, [place] 00 Dosing Weight 48.75, kg, Start date: 10/28/19 9:00:00 [employer], Duration: 30 day, Stop date: 11/26/19 9:00:00 [employer] Protonix 2018-11 No Notes: Memoria 2-18 Tablet l 21:00: should not [place] 00 be chewed or crushed. (Same as: Protonix) Protonix 2018-11 No Notes: Memoria 2-18 Tablet l 21:00: should not [place] 00 be chewed or crushed. (Same as: Protonix) Omeprazole 2018-11 No 20 mg, PO, M emoria 2-17 Daily, 0 l 21:16: Refill(s) [place] 00 Hydroxychlo 2018-11 Yes 200 mg, Mem oria roquine 2-17 PO, Daily, l 21:16: 0 [place] 00 Refill(s) Prednisone 2018-11 No 20 mg, PO, M emoria 2-17 TID, l 21:16: Quantity [place] 00 sufficient , 0 Refill(s) Lisinopril 2018-11 No 10 mg, PO, M emoria 2-17 Daily, 0 l 21:16: Refill(s) [place] 00 Omeprazole 2018-11 No 20 mg, PO, M emoria 2-17 Daily, 0 l 21:16: Refill(s) [place] Hydroxychlo 2018-11 Yes 200 mg, Mem oria roquine 2-17 PO, Daily, l 21:16: 0 [place] 00 Refill(s) Prednisone 2018-11 No 20 mg, PO, M emoria 2-17 TID, l 21:16: Quantity [place] 00 sufficient , 0 Refill(s) Lisinopril 2018-11 No 10 mg, PO, M emoria 2-17 Daily, 0 l 21:16: Refill(s) [place] 00 Hydroxychlo 2018-11 No Notes: Rui jessa roquine 2-17 (Same as: l Sulfate 200 18:35: Plaquenil) [place] MG Oral 00 Hydroxychl Tablet oroquine [Plaquenil] sulfate 200 mg = 155 mg hydroxychl oroquine base. If treating malaria, verify dose as salt vs. base per CDC guideline Hydroxychlo 2018-11 No Notes: Rui jessa roquine 2-17 (Same as: l Sulfate 200 18:35: Plaquenil) [place] MG Oral 00 Hydroxychl Tablet oroquine [Plaquenil] sulfate 200 mg = 155 mg hydroxychl oroquine base. If treating malaria, verify dose as salt vs. base per CDC guideline cefepime 2018-11 No Notes: Memoria 2-17 (Same As: l 09:00: Maxipime) [place] 00 MEDICATION WASTE Product Size: 1000 mg Product Wasted: ___ mg Enoxaparin 2018-11 No Notes: Memor ia 2-17 (Same as: l 09:00: Lovenox) [place] cefepime 2018-11 No Notes: Memoria 2-17 (Same As: l 09:00: Maxipime) [place] 00 MEDICATION WASTE Product Size: 1000 mg Product Wasted: ___ mg Enoxaparin 2018-11 No Notes: Memor ia 2-17 (Same as: l 09:00: Lovenox) [place] Dilaudid 2018-11 No Notes: Memoria 2-17 Same as: l 08:58: Dilaudid [place] 00 Reglan 2018-11 No Notes: Memoria 2-17 (Same as: l 08:58: Reglan) [place] Dilaudid 2018-11 No Notes: Memoria 2-17 Same as: l 08:58: Dilaudid [place] 00 Reglan 2018-11 No Notes: Memoria 2-17 (Same as: l 08:58: Reglan) [place] 00 Protonix 2018-11 No Notes: For Mem oria 2-17 IV push l 08:25: reconstitu [place] 00 te with 10 ml 0.9% sodium chloride and push over 2 minutes. (Same as: Protonix) Protonix 2018-11 No Notes: For Mem oria 2-17 IV push l 08:25: reconstitu [place] 00 te with 10 ml 0.9% sodium chloride and push over 2 minutes. (Same as: Protonix) Solu-Medrol 2018-11 No Notes: Rui jessa 2-17 (Same l 08:23: as:Solu-ME [place] 00 DROL, A-Methapre d) Solu-Medrol 2018-11 No Notes: Rui jessa 2-17 (Same l 08:23: as:Solu-ME [place] 00 DROL, A-Methapre d) Dextrose 2018-11 No 12.5 gm, Memor ia 50% Syringe 2-17 25 mL, l ([id number]) 08:20: Route: IVP, Drug Form: INJ, Dosing Weight 72.727, kg, PRN, PRN Blood Glucose Results, Start date: 10/26/19 2:20:00 [employer], Duration: 30 day, Stop date: 11/25/19 2:19:00 [employer], 0 Glucagon 2018-11 No 1 mg, Memoria 2-17 Route: IM, l 08:20: Drug form: PDR/INJ, PRN, Dosing Weight 72.727, kg, PRN Blood Glucose Results, Start date: 10/26/19 2:20:00 [employer], Duration: 30 day, Stop date: 11/25/19 2:19:00 [employer], 0 Bisacodyl 2018-11 No Notes: Memori a 2-17 (Same As: l 08:20: Dulcolax, Bisco-Lax) Ondansetron 2018-11 No Notes: Rui jessa 2-17 (Same as: l 08:20: Zofran) MEDICATION WASTE Product Size: 4 mg Product Wasted: ___ mg Melatonin 2018-11 No Notes: Memori a 2-17 (Same as: l 08:20: Melatonin) Acetaminoph 2018-11 No Notes: Do M emoria en 2-17 not exceed l 08:20: 4 gm/day. (Same as: Tylenol) Dextrose 2018-11 No 12.5 gm, Memor ia 50% Syringe 2-17 25 mL, l ([id number]) 08:20: Route: IVP, Drug Form: INJ, Dosing Weight 72.727, kg, PRN, PRN Blood Glucose Results, Start date: 10/26/19 2:20:00 [employer], Duration: 30 day, Stop date: 11/25/19 2:19:00 [employer], 0 Glucagon 2018-11 No 1 mg, Memoria 2-17 Route: IM, l 08:20: Drug form: [place] 00 PDR/INJ, PRN, Dosing Weight 72.727, kg, PRN Blood Glucose Results, Start date: 10/26/19 2:20:00 [employer], Duration: 30 day, Stop date: 11/25/19 2:19:00 [employer], 0 Bisacodyl 2018-11 No Notes: Memori a 2-17 (Same As: l 08:20: Dulcolax, Bisco-Lax) Ondansetron 2018-11 No Notes: Rui jessa 2-17 (Same as: l 08:20: Zofran) MEDICATION WASTE Product Size: 4 mg Product Wasted: ___ mg Melatonin 2018-11 No Notes: Memori a 2-17 (Same as: l 08:20: Melatonin) Acetaminoph 2018-11 No Notes: Do M emoria en 2-17 not exceed l 08:20: 4 gm/day. (Same as: Tylenol) Tramadol 2018-11 No Notes: Not Mem oria 2-17 to exceed l 08:19: 400mg/day. (Same As: Ultram) Morphine 2018-11 No 2 mg, 1 Memori a 2-17 mL, Route: l 08:19: IVP, Drug form: SOLN, Q4H, Dosing Weight 72.727, kg, PRN Pain Score 7-10, Start date: 10/26/19 2:19:00 [employer], Duration: 5 day, Stop date: 10/31/19 2:18:00 [employer], 0 Tramadol 2018-11 No Notes: Not Mem oria 2-17 to exceed l 08:19: 400mg/day. (Same As: Ultram) Morphine 2018-11 No 2 mg, 1 Memori a 2-17 mL, Route: l 08:19: IVP, Drug form: SOLN, Q4H, Dosing Weight 72.727, kg, PRN Pain Score 7-10, Start date: 10/26/19 2:19:00 [employer], Duration: 5 day, Stop date: 10/31/19 2:18:00 [employer], 0 LR IV 1,000 2018-11 No 1,000 mL, M emoria mL -17 Rate: 100 l 08:17: ml/hr, Infuse over: 10 hr, Route: IV, Dosing Weight 72.727 kg, Total Volume: 1,000, Start date: 10/26/19 2:17:00 [employer], Duration: 30 day, Stop date: 11/25/19 2:16:00 [employer], 1.86, m2, 0 Metronidazo 2018-11 No Notes: Rui jessa le 2-17 (Same as: l 08:17: Flagyl) [place] 00 Avoid alcohol. LR IV 1,000 2018-11 No 1,000 mL, M emoria mL 2-17 Rate: 100 l 08:17: ml/hr, Infuse over: 10 hr, Route: IV, Dosing Weight 72.727 kg, Total Volume: 1,000, Start date: 10/26/19 2:17:00 [employer], Duration: 30 day, Stop date: 11/25/19 2:16:00 [employer], 1.86, m2, 0 Metronidazo 2018-11 No Notes: Rui jessa le 2-17 (Same as: l 08:17: Flagyl) [place] 00 Avoid alcohol. methylPREDN 2018-11 No Notes: Rui jessa ISolone 2-17 (Same l SODium 07:10: as:Solu-ME Yani nn SUCCinate 00 DROL, A-Methapre d) methylPREDN 2018-11 No Notes: Rui jessa ISolone 2-17 (Same l SODium 07:10: as:Solu-ME Yani nn SUCCinate 00 DROL, A-Methapre d) Morphine 2018-11 No Notes: Memoria 2-17 (Same l 06:54: as:MORPhin [place] 00 e Sulfate) Morphine 2018-11 No Notes: Memoria 2-17 (Same l 06:54: as:MORPhin [place] 00 e Sulfate) Piperacilli 2018-11 No Notes: Rui jessa n / 2-17 (Same as: l tazobactam 06:38: Zosyn) Yani nn Dosing based on Piperacill in component MEDICATION WASTE Product Size: 3375 mg Product Wasted: ___ mg Piperacilli 2018-11 No Notes: Rui jessa n / 2-17 (Same as: l tazobactam 06:38: Zosyn) Yani nn Dosing based on Piperacill in component MEDICATION WASTE Product Size: 3375 mg Product Wasted: ___ mg Morphine 2018-11 No Notes: Memoria 2-17 (Same l 03:50: as:MORPhin [place] 00 e Sulfate) Morphine 2018-11 No Notes: Memoria 2-17 (Same l 03:50: as:MORPhin [place] 00 e Sulfate) Ondansetron 2018-11 No Notes: Rui jessa 2-17 (Same as: l 01:52: Zofran) [place] 00 MEDICATION WASTE Product Size: 4 mg Product Wasted: ___ mg Sodium 2018-11 No 1,000 mL, Memori a Chloride 2-17 1000 l 0.9% 01:52: ml/hr, [place] (Bolus) IV 00 Infuse Over: 1 hr, Route: IV, 1,000, Drug form: INJ, ONCE, Priority: STAT, Dosing Weight 72.727 kg, Start date: 10/25/19 19:52:00 [employer], Stop date: 10/25/19 19:52:00 [employer], 0 Ondansetron 2018-11 No Notes: Rui jessa 2-17 (Same as: l 01:52: Zofran) [place] 00 MEDICATION WASTE Product Size: 4 mg Product Wasted: ___ mg Sodium 2018-11 No 1,000 mL, Memori a Chloride 2-17 1000 l 0.9% 01:52: ml/hr, [place] (Bolus) IV 00 Infuse Over: 1 hr, Route: IV, 1,000, Drug form: INJ, ONCE, Priority: STAT, Dosing Weight 72.727 kg, Start date: 10/25/19 19:52:00 [employer], Stop date: 10/25/19 19:52:00 [employer], 0 clindamycin 2018-11 Yes 450 mg = 3 Memoria 150 mg oral 2-12 cap, PO, l capsule 18:20: TID, X 7 Mikhail n 00 day, # 63 cap, 0 Refill(s) clindamycin 2018-11 Yes 450 mg = 3 Memoria 150 mg oral 2-12 cap, PO, l capsule 18:20: TID, X 7 Mikhail n 00 day, # 63 cap, 0 Refill(s) Clindamycin 2018-11 No 450 mg, Mem oria 2-12 Route: PO, l 18:12: ONCE, [place] Dosing Weight 54.1, kg, Priority: STAT, Start date: 10/21/19 12:12:00 [employer], Stop date: 10/21/19 12:12:00 [employer], ABX Indication : Skin/Soft Tissue Infection Clindamycin 2018-11 No 450 mg, Mem oria 2-12 Route: PO, l 18:12: ONCE, [place] Dosing Weight 54.1, kg, Priority: STAT, Start date: 10/21/19 12:12:00 [employer], Stop date: 10/21/19 12:12:00 [employer], ABX Indication : Skin/Soft Tissue Infection Sodium 2018-11 No 500 mL, Memoria Chloride 1-27 500 ml/hr, l 0.9% 03:40: Infuse [place] (Bolus) IV 00 Over: 1 hr, Route: IV, 500, Drug form: INJ, ONCE, Priority: STAT, Dosing Weight 49.545 kg, Start date: 10/05/19 21:40:00 [employer], Stop date: 10/05/19 21:40:00 [employer], 0 Sodium 2018-11 No 500 mL, Memoria Chloride 1-27 500 ml/hr, l 0.9% 03:40: Infuse [place] (Bolus) IV 00 Over: 1 hr, Route: IV, 500, Drug form: INJ, ONCE, Priority: STAT, Dosing Weight 49.545 kg, Start date: 10/05/19 21:40:00 [employer], Stop date: 10/05/19 21:40:00 [employer], 0 predniSONE 2018-11 Yes Low serum 5mg QD Take 1 Law (DELTASONE) 0-24 complement tablet by Health 5 mg tablet 00:00: C3 mouth 00 daily Need to call Rheumatolo gy and make appointmen t iris. sulfamethox 2018-11 Yes Need for Once daily Law azole-trime 0-24 pneumocysti on Friday Health thoprim 00:00: s , (BACTRIM 00 prophylaxis Friday DS) 800-160 and Friday mg per per tablet rheumatolo gy Need close monitoring of kidney function further refills to be provided by rheumatolo gy Avoid pregancy while on medication . predniSONE 2018-11 Yes Low serum 5mg QD Take 1 Law (DELTASONE) 0-24 complement tablet by [facility] 5 mg tablet 00:00: C3 mouth 00 daily Need to call Rheumatolo gy and make appointmen t iris. sulfamethox 2018-11 Yes Need for Once daily Law azole-trime 0-24 pneumocysti on Friday Health thoprim 00:00: s , (BACTRIM 00 prophylaxis Friday DS) 800-160 and Friday mg per per tablet rheumatolo gy Need close monitoring of kidney function further refills to be provided by rheumatolo gy Avoid pregancy while on medication . predniSONE 2018-11 Yes Low serum 5mg QD Take 1 Law (DELTASONE) 0-24 complement tablet by Health 5 mg tablet 00:00: C3 mouth 00 daily Need to call Rheumatolo gy and make appointmen t iris. sulfamethox 2018-11 Yes Need for Once daily Law azole-trime 0-24 pneumocysti on Friday Health thoprim 00:00: s , (BACTRIM 00 prophylaxis Friday DS) 800-160 and Friday mg per per tablet rheumatolo gy Need close monitoring of kidney function further refills to be provided by rheumatolo gy Avoid pregancy while on medication . predniSONE 2018-11 Yes Low serum 5mg QD Take 1 Law (DELTASONE) 0-24 complement tablet by [employer] 5 mg tablet 00:00: C3 mouth 00 daily Need to call Rheumatolo gy and make appointmen t iris. sulfamethox 2018-11 Yes Need for Once daily Law azole-trime 0-24 pneumocysti on Friday Health thoprim 00:00: s , (BACTRIM 00 prophylaxis Friday DS) 800-160 and Friday mg per per tablet rheumatolo gy Need close monitoring of kidney function further refills to be provided by rheumatolo gy Avoid pregancy while on medication . predniSONE 2018-11 Yes 5mg QD Take 5 mg Me thodi (DELTASONE) 0-[address] 5 mg tablet 00:00: [facility] l hydroxychlo Yes Drug-induce 200mg QD Take 1 Law roquine 6-12 d systemic tablet by H ealth (PLAQUENIL) 00:00: lupus mouth 200 mg 00 erythematos daily. tablet us, unspecified organ involvement status sennosides- Yes Constipatio 1{tbl} QD Take 1 Law docusate 6-12 n, tablet by Health sodium 00:00: unspecified mouth (SENNA 00 constipatio daily. PLUS) n type 8.6-50 mg tablet hydroxychlo Yes Drug-induce 200mg QD Take 1 Law roquine 6-12 d systemic tablet by H ealth (PLAQUENIL) 00:00: lupus mouth 200 mg 00 erythematos daily. tablet us, unspecified organ involvement status sennosides- Yes Constipatio 1{tbl} QD Take 1 Law docusate 6-12 n, tablet by Health sodium 00:00: unspecified mouth (SENNA 00 constipatio daily. PLUS) n type 8.6-50 mg tablet hydroxychlo Yes Drug-induce 200mg QD Take 1 Law roquine 6-12 d systemic tablet by H ealth (PLAQUENIL) 00:00: lupus mouth 200 mg 00 erythematos daily. tablet us, unspecified organ involvement status sennosides- Yes Constipatio 1{tbl} QD Take 1 Law docusate 6-12 n, tablet by Health sodium 00:00: unspecified mouth (SENNA 00 constipatio daily. PLUS) n type 8.6-50 mg tablet hydroxychlo Yes Drug-induce 200mg QD Take 1 Law roquine 6-12 d systemic tablet by H ealth (PLAQUENIL) 00:00: lupus mouth 200 mg 00 erythematos daily. tablet us, unspecified organ involvement status sennosides- Yes Constipatio 1{tbl} QD Take 1 Law docusate 6-12 n, tablet by Health sodium 00:00: unspecified mouth (SENNA 00 constipatio daily. 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 unspecified SLE type ferrous 2017-11 Yes Weight loss 325mg Take 1 Law sulfate 325 2-04 of more tablet by Health mg (65 mg 00:00: than 10% mouth 3 iron) 00 body weight times tablet daily. ferrous 2017-11 Yes Weight loss 325mg Take 1 Law sulfate 325 2-04 of more tablet by Health mg (65 mg 00:00: than 10% mouth 3 iron) 00 body weight times tablet daily. ferrous 2017-11 Yes Weight loss 325mg Take 1 Law sulfate 325 2-04 of more tablet by Health mg (65 mg 00:00: than 10% mouth 3 iron) 00 body weight times tablet daily. ferrous 2017-11 Yes Weight loss 325mg Take 1 Law sulfate 325 2-04 of more tablet by Health mg (65 mg 00:00: than 10% mouth 3 iron) 00 body weight times tablet daily. traMADol 2017-11 Yes Weight loss 50mg Take 1 Law (ULTRAM) 50 2-03 of more tablet by Health mg tablet 00:00: than 10% mouth 00 body weight every 6 hours as needed for Pain. traMADol 2017-11 Yes Weight loss 50mg Take 1 Law (ULTRAM) 50 2-03 of more tablet by Health mg tablet 00:00: than 10% mouth 00 body weight every 6 hours as needed for Pain. traMADol 2017-11 Yes Weight loss 50mg Take 1 Law (ULTRAM) 50 2-03 of more tablet by Health mg tablet 00:00: than 10% mouth 00 body weight every 6 hours as needed for Pain. traMADol 2017-11 Yes Weight loss 50mg Take 1 Law (ULTRAM) 50 2-03 of more tablet by Health mg tablet 00:00: than 10% mouth 00 body weight every 6 hours as needed for Pain. Cephalexin No 500 mg = 1 M emoria 500 MG Oral 9-10 cap, PO, l Capsule 19:05: Q6H, X 7 Mikhail n [Keflex] 00 day, # 28 cap, 0 Refill(s) Cephalexin No 500 mg = 1 M emoria 500 MG Oral 910 cap, PO, l Capsule 19:05: Q6H, X 7 Mikhail n [Keflex] 00 day, # 28 cap, 0 Refill(s) Saline No Notes: Memoria Flush 0.9% 9-10 (Same as: l 16:37: BD [place] 00 Posiflush) Saline No Notes: Memoria Flush 0.9% 9-10 (Same as: l 16:37: BD [place] 00 Posiflush) Select-OB Yes 1 tab, Memori a 07-16 CHEW, l Multivitami 11:15: Daily, # He rmann ns oral 00 30 tab, 0 tablet, Refill(s), chewable Pharmacy: [facility] [address] [place] [address] Select-OB Yes 1 tab, Memori a 07-16 CHEW, l Multivitami 11:15: Daily, # He rmann ns oral 00 30 tab, 0 tablet, Refill(s), chewable Pharmacy: [facility] [address] No 1 tab, Memoria Multivitami 07-15 Route: PO, l ns oral 14:00: Drug Form: Herm nancy tablet 00 TAB, Dosing Weight 67.273, kg, Daily, Start date: 07/15/18 9:00:00 CDT, Duration: 30 day, Stop date: 08/13/18 9:00:00 CDT No 1 tab, Memoria Multivitami 07-15 Route: PO, l ns oral 14:00: Drug Form: Herm nancy tablet 00 TAB, Dosing Weight 67.273, kg, Daily, Start date: 07/15/18 9:00:00 CDT, Duration: 30 day, Stop date: 08/13/18 9:00:00 CDT Acetaminoph No 325 mg = 1 Memoria en 325 MG 07-15 cap, PO, l Oral 10:47: TID, # 90 [place] Capsule 00 cap, 0 [Tylenol] Refill(s), Pharmacy: [facility] [address] [place] [address] ibuprofen No 800 mg = 1 Me moria 800 mg oral 9-05 tab, PO, l tablet 10:47: Q8H, PRN [place] 00 Pain, Take with food, # 30 tab, 0 Refill(s), Pharmacy: [facility] [address] [place] [address] Acetaminoph No 325 mg = 1 Memoria en 325 MG 9-05 cap, PO, l Oral 10:47: TID, # 90 [place] Capsule 00 cap, 0 [Tylenol] Refill(s), Pharmacy: [facility] [address] [place] [address] ibuprofen No 800 mg = 1 Me moria 800 mg oral 9-05 tab, PO, l tablet 10:47: Q8H, PRN [place] 00 Pain, Take with food, # 30 tab, 0 Refill(s), Pharmacy: [facility] [address] Ibuprofen No Notes: Memori a 07-14 (Same as: l 17:00: Motrin [place] 00 Children's , Advil Children's ) Take with food. -M-R II No Notes: Memoria 07-14 (Same as: l 17:00: M-M-R II) [place] 00 (measles-m umps-rubel la virus vaccine 0.5 ml INJ VL) WASTE: F/P - Red; E -Red GIVE PRIOR TO DISCHARGE Ibuprofen No Notes: Memori a 07-14 (Same as: l 17:00: Motrin [place] 00 Children's , Advil Children's ) Take with food. -M-R II No Notes: Memoria 07-14 (Same as: l 17:00: M-M-R II) [place] (measles-m umps-rubel la virus vaccine 0.5 ml INJ VL) WASTE: F/P - Red; E -Red GIVE PRIOR TO DISCHARGE Ondansetron No Notes: Rui jessa 07-14 (Same as: l 16:20: Zofran) [place] 00 MEDICATION WASTE Product Size: 4 mg Product Wasted: ___ mg Docusate No Notes: Memoria 07-14 (Same as: l 16:20: Colace) [place] 00 (Do Not Crush) Bisacodyl No Notes: Memori a 07-14 (Same As: l 16:20: Dulcolax, [place] Bisco-Lax) zolpidem No Notes: Memoria 07-14 (Same As: l 16:20: Ambien) lanolin No 1 appl, Memoria topical 07-14 Route: l 16:20: TOP, PRN, [place] Drug form: OINT, PRN Other -See Comment, Start date: 07/14/18 11:20:00 CDT, Duration: 30 day, Stop date: 08/13/18 11:19:00 CDT Benzocaine No Notes: Memor ia 200 MG/ML 07-14 (Same As: l Topical 16:20: Dermoplast Herm nancy Dyess ) WASTE: [Dermoplast Aerosol - ] Return to Pharmacy FOR EXTERNAL USE ONLY Methylergon No Notes: Rui jessa ovine 07-14 (Same l 16:20: as:Metherg ine) Oxytocin No 30 unit, Memor ia 07-14 500 mL, l 16:20: Rate: 42 [place] 00 ml/hr, Infuse over: 11.9 hr, Dosing Weight 67.273, kg, Route: IV, Total Volume: 500 mL, Start date: 07/14/18 11:20:00 CDT, Duration: 2 day, Stop date: 07/16/18 11:19:00 CDT, Replace Every: 11.9 hr Lactated No 1,000 mL, Rui jessa Ringers IV 07-14 Rate: 100 l 1,000 mL 16:20: ml/hr, Infuse over: 10 hr, Route: IV, Dosing Weight 67.273 kg, Total Volume: 1,000, Start date: 07/14/18 11:20:00 CDT, Duration: 30 day, Stop date: 08/13/18 11:19:00 CDT, 1.74, m2 Ondansetron No Notes: Rui jessa 07-14 (Same as: l 16:20: Zofran) [place] 00 MEDICATION WASTE Product Size: 4 mg Product Wasted: ___ mg Docusate No Notes: Memoria 07-14 (Same as: l 16:20: Colace) [place] (Do Not Crush) Bisacodyl No Notes: Memori a 07-14 (Same As: l 16:20: Dulcolax, [place] Bisco-Lax) zolpidem No Notes: Memoria 07-14 (Same As: l 16:20: Ambien) [place] 00 lanolin No 1 appl, Memoria topical 07-14 Route: l 16:20: TOP, PRN, [place] Drug form: OINT, PRN Other -See Comment, Start date: 07/14/18 11:20:00 CDT, Duration: 30 day, Stop date: 08/13/18 11:19:00 CDT Benzocaine No Notes: Memor ia 200 MG/ML 07-14 (Same As: l Topical 16:20: Dermoplast Herm nancy Dyess ) WASTE: [Dermoplast Aerosol - ] Return to Pharmacy FOR EXTERNAL USE ONLY Methylergon No Notes: Rui jessa ovine 07-14 (Same l 16:20: as:Metherg [place] ine) Oxytocin No 30 unit, Memor ia 07-14 500 mL, l 16:20: Rate: 42 [place] 00 ml/hr, Infuse over: 11.9 hr, Dosing Weight 67.273, kg, Route: IV, Total Volume: 500 mL, Start date: 07/14/18 11:20:00 CDT, Duration: 2 day, Stop date: 07/16/18 11:19:00 CDT, Replace Every: 11.9 hr Lactated No 1,000 mL, Rui jessa Ringers IV 07-14 Rate: 100 l 1,000 mL 16:20: ml/hr, [place] 00 Infuse over: 10 hr, Route: IV, Dosing Weight 67.273 kg, Total Volume: 1,000, Start date: 07/14/18 11:20:00 CDT, Duration: 30 day, Stop date: 08/13/18 11:19:00 CDT, 1.74, m2 Misoprostol No Notes: Rui jessa 07-14 (Same l 15:00: as:Cytotec [place] 00 ) Take with food Methylergon No Notes: Rui jessa ovine 9-04 (Same l 15:00: as:Metherg [place] 00 ine) Citric Acid No Notes: Rui jessa / sodium 9-04 (Same As: l citrate 15:00: Bicitra) Mikhail n 00 Carboprost No Notes: Memor ia 9-04 (Same As: l 15:00: Hemabate) [place] 00 Famotidine No Notes: Memor ia 9-04 (Same as: l 15:00: Pepcid) [place] 00 Can be dilute in 5-10cc NS IVP: Slow IV push over at least 2 minutes. Misoprostol No Notes: Rui jessa 9- (Same l 15:00: as:Cytotec [place] 00 ) Take with food Methylergon No Notes: Rui jessa ovine 9-04 (Same l 15:00: as:Metherg [place] 00 ine) Citric Acid No Notes: Rui jessa / sodium 9-04 (Same As: l citrate 15:00: Bicitra) Mikhail n 00 Carboprost No Notes: Memor ia 9-04 (Same As: l 15:00: Hemabate) [place] 00 Famotidine No Notes: Memor ia 9-04 (Same as: l 15:00: Pepcid) [place] 00 Can be dilute in 5-10cc NS IVP: Slow IV push over at least 2 minutes. Lidocaine No Notes: Memori a Hydrochlori 07-14 (Same as: l de 10 MG/ML 14:45: Xylocaine) [place] Injectable 00 Solution Terbutaline No Notes: Rui jessa 07-14 DO NOT l 14:45: USE IN [place] 00 [employer] (Same As: Brethine) Acetaminoph No Notes: Rui jessa en 325 MG / 07-14 (Same as: l Hydrocodone 14:45: Wendel Yani nn Bitartrate 00 325/5) Do 5 MG Oral not exceed Tablet 4gm/day of acetaminop hen. Ondansetron No Notes: Rui jessa 07-14 (Same as: l 14:45: Zofran) [place] 00 MEDICATION WASTE Product Size: 4 mg Product Wasted: ___ mg Ibuprofen No Notes: Memori a 07-14 (Same as: l 14:45: Motrin [place] 00 Children's , Advil Children's ) Take with food. Oxytocin No 30 unit, Memor ia 07-14 500 mL, l 14:45: Rate: 42 [place] 00 ml/hr, Infuse over: 11.9 hr, Dosing Weight 67.273, kg, Route: IV, Total Volume: 500 mL, Start date: 07/14/18 9:45:00 CDT, Duration: 2 day, Stop date: 07/16/18 9:44:00 CDT, Replace Every: 11.9 hr Lactated No 1,000 mL, Rui jessa Ringers IV 07-14 Rate: 125 l 1,000 mL 14:45: ml/hr, Infuse over: 8 hr, Route: IV, Dosing Weight 67.273 kg, Total Volume: 1,000, Start date: 07/14/18 9:45:00 CDT, Duration: 30 day, Stop date: 08/13/18 9:44:00 CDT, 1.74, m2 Calcium No 1,000 mL, Memor ia Chloride 07-14 1,000 l 0.0014 14:45: ml/hr, [place] MEQ/ML / 00 Infuse Potassium Over: 1 Chloride hr, Route: 0.004 IV, 1,000, MEQ/ML / Drug form: Sodium INJ, ONCE, Chloride Dosing 0.103 Weight MEQ/ML / 67.273 kg, Sodium Start Lactate date: 0.028 07/14/18 MEQ/ML 9:45:00 Injectable CDT, Stop Solution date: 07/14/18 9:45:00 CDT, Bolus for regional anesthesia per unit routine Butorphanol No Notes: Rui jessa 07-14 (Same As: l 14:45: Stadol) [place] 00 Lidocaine No Notes: Memori a Hydrochlori 07-14 (Same as: l de 10 MG/ML 14:45: Xylocaine) [place] Injectable 00 Solution Terbutaline No Notes: Rui jessa 07-14 DO NOT l 14:45: USE IN [place] 00 [employer] [employer] [place] [employer] (Same As: Brethine) Acetaminoph No Notes: Rui jessa en 325 MG / 07-14 (Same as: l Hydrocodone 14:45: Wendel Yani nn Bitartrate 00 325/5) Do 5 MG Oral not exceed Tablet 4gm/day of acetaminop hen. Ondansetron No Notes: Rui jessa 07-14 (Same as: l 14:45: Zofran) MEDICATION WASTE Product Size: 4 mg Product Wasted: ___ mg Ibuprofen No Notes: Memori a 07-14 (Same as: l 14:45: Motrin [place] 00 Children's , Advil Children's ) Take with food. Oxytocin No 30 unit, Memor ia 07-14 500 mL, l 14:45: Rate: 42 [place] 00 ml/hr, Infuse over: 11.9 hr, Dosing Weight 67.273, kg, Route: IV, Total Volume: 500 mL, Start date: 07/14/18 9:45:00 CDT, Duration: 2 day, Stop date: 07/16/18 9:44:00 CDT, Replace Every: 11.9 hr Lactated No 1,000 mL, Rui jessa Ringers IV 07-14 Rate: 125 l 1,000 mL 14:45: ml/hr, Infuse over: 8 hr, Route: IV, Dosing Weight 67.273 kg, Total Volume: 1,000, Start date: 07/14/18 9:45:00 CDT, Duration: 30 day, Stop date: 08/13/18 9:44:00 CDT, 1.74, m2 Calcium No 1,000 mL, Memor ia Chloride 07-14 1,000 l 0.0014 14:45: ml/hr, [place] MEQ/ML / 00 Infuse Potassium Over: 1 Chloride hr, Route: 0.004 IV, 1,000, MEQ/ML / Drug form: Sodium INJ, ONCE, Chloride Dosing 0.103 Weight MEQ/ML / 67.273 kg, Sodium Start Lactate date: 0.028 07/14/18 MEQ/ML 9:45:00 Injectable CDT, Stop Solution date: 07/14/18 9:45:00 CDT, Bolus for regional anesthesia per unit routine Butorphanol No Notes: Rui jessa 07-14 (Same As: l 14:45: Stadol) [place] 00 hydrALAZINE hydrALAZINE Yes MANJARI 1 Q8H TAKE 1 UT HCl - 50 MG HCl - 50 MG DEVIDI TABLET [facility] Oral Tablet Oral Tablet M.D. EVERY 8 ans HOURS Metoprolol Metoprolol Yes MANJARI Q0.5D TAKE 1 UT Tartrate 25 Tartrate 25 DEVIDI TABLET [facility] MG Oral MG Oral M.D. TWICE ans Tablet Tablet DAILY. Aspirin 81 Aspirin 81 Yes 1 tab UT MG Oral MG Oral every [facility] Tablet Tablet other day ans Delayed Delayed Release Release Lisinopril Lisinopril Yes 1 QD TAKE 1 U T 2.5 MG Oral 2.5 MG Oral TABLET [facility] Tablet Tablet DAILY. ans Nitroglycer Nitroglycer Yes U T in 0.4 MG in 0.4 MG Physi ci Sublingual Sublingual ans Tablet Tablet Sublingual Sublingual levETIRAcet levETIRAcet Yes FRANK 1 Q0.5D TAKE 1 UT am 1000 MG am 1000 MG FARMER TABLET Physici Oral Tablet Oral Tablet M.D. TWICE ans DAILY Immunizations Ordered Immunization Filled Immunization Date Status Commen ts Source Name Name diphtheria/pertussis 2018-07-16 Completed Rui rial , acel/tetanus adult 17:19:00 Herm nancy diphtheria/pertussis 2018-07-16 Completed Rui rial , acel/tetanus adult 17:19:00 [facility] nancy Vital Signs Vital Name Observation Time Observation Value Comments Source WEIGHT 2021-02-05 51.12 kg 09:12:00 WEIGHT 2021-02-05 51.12 kg 09:12:00 HEIGHT 2021-01-11 166.5 cm 12:41:00 WEIGHT 2021-01-11 46.947 kg 12:41:00 HEIGHT 2021-01-11 166.5 cm 12:41:00 WEIGHT 2021-01-11 46.947 kg 12:41:00 Height 2021-05-24 167.64 cm [facility] Mikhail francois 16:41:00 BMI Calculated 2021-05-24 [facility] nancy 16:41:00 [facility] 16:[facility]00 Systolic (mm Hg) 2021-05-24 [facility] Husam rmann 16:41:00 Diastolic (mm Hg) 2021-05-24 [facility] H ermann 16:41:00 Heart Rate 2021-05-24 [facility] Haddadan n 16:41:00 Respitory Rate 2021-05-24 [facility] nancy 16:41:00 Temperature Oral 2021-05-24 98 F [facility] Husam rmann (F) 16:41:00 Temperature Oral 2021-05-24 98.5 F [facility] rmann (F) 15:30:00 Heart Rate 2021-05-24 [facility] 15:30:00 Respitory Rate 2021-05-24 [facility] nancy 15:30:00 Systolic (mm Hg) 2021-05-24 [facility] rmann 15:30:00 Diastolic (mm Hg) 2021-05-24 [facility] ermann 15:30:00 Height 2021-05-24 167.64 cm Rey Elizondo n 12:15:00 BMI Calculated 2021-05-24 [facility] nancy 12:15:00 Weight 2021-05-24 [facility] Mikhail n 12:15:00 Systolic (mm Hg) 2021-05-24 [facility] rmann 12:15:00 Diastolic (mm Hg) 2021-05-24 [facility] ermann 12:15:00 Heart Rate 2021-05-24 Rey Haddadan n 12:15:00 Respitory Rate 2021-05-24 [facility] 12:15:00 Temperature Oral 2021-05-24 98.6 F [facility] Husam rmann (F) 12:15:00 Systolic blood 2021-04-30 116 mm[Hg] [facility]: E; [facility] 15:23:00 Position: Sitting Diastolic blood 2021-04-30 87 mm[Hg] [facility]: E[facility] 15:23:00 Position: Sitting Body height 2021-04-30 66 [in_us] [facility] 15:23:00 Weight 2021-04-30 97.4375 [lb_av] [facility] 15:23:00 Body mass index 2021-04-30 15.73 kg/m2 [facility] (BMI) [Ratio] 15:23:00 Body temperature 2021-04-30 97.5 [degF] Method: [facility] 15:23:00 Temporal Heart Rate 2021-04-30 88 /min Location: L [facility] 15:23:00 Brachial Artery; Quality: Normal Respiratory rate 2021-04-30 16 /min Quality: Normal [facility] 15:23:00 O2 SAT 2021-04-30 100 % Source: RA [facility] 15:23:00 Heart Rate 2021-04-29 [facility] 18:[facility]:00 Systolic (mm Hg) 2021-04-29 [facility] 18:41:00 Diastolic (mm Hg) 2021-04-29 [facility] 18:41:00 Heart Rate 2021-04-29 [facility] 17:05:00 Systolic (mm Hg) 2021-04-29 [facility] 17:05:00 Diastolic (mm Hg) 2021-04-29 [facility] 17:05:00 Temperature Oral 2021-04-29 98.4 F [facility] Gladwin rmann (F) 17:05:00 Respitory Rate 2021-04-29 [facility] 17:05:00 Heart Rate 2021-04-29 [facility] 17:00:00 Systolic (mm Hg) 2021-04-29 [facility] 17:00:00 Diastolic (mm Hg) 2021-04-29 [facility] 17:00:00 Temperature Oral 2021-04-29 98.4 F [facility] rmann (F) 13:45:00 Respitory Rate 2021-04-29 [facility] 13:45:00 Temperature Oral 2021-04-29 98.4 F [facility] (F) 12:36:00 Respitory Rate 2021-04-29 [facility] 12:36:00 BMI Calculated 2021-04-28 [facility] 10:28:00 Height 2021-04-28 167.64 cm [facility] 05:36:00 BMI Calculated 2021-04-28 [facility] 05:36:00 Weight 2021-04-28 [facility] 05:36:00 Temperature Oral 2021-04-07 99.4 F [facility] (F) 20:56:00 Temperature Oral 2021-04-07 100.4 F [facility] (F) 18:00:00 Heart Rate 2021-04-07 [facility] 18:00:00 Respitory Rate 2021-04-07 [facility] 18:00:00 Systolic (mm Hg) 2021-04-07 [facility] 18:00:00 Diastolic (mm Hg) 2021-04-07 [facility] 18:00:00 Heart Rate 2021-04-07 [facility] 17:15:00 Respitory Rate 2021-04-07 [facility] 17:15:00 Systolic (mm Hg) 2021-04-07 [facility] 17:15:00 Diastolic (mm Hg) 2021-04-07 [facility] 17:15:00 Heart Rate 2021-04-07 [facility] 16:15:00 Respitory Rate 2021-04-07 [facility] 16:15:00 Systolic (mm Hg) 2021-04-07 [facility] 16:15:00 Diastolic (mm Hg) 2021-04-07 [facility] ermann 16:15:00 Temperature Oral 2021-04-07 101.3 F [facility] (F) 13:00:00 Temperature Oral 2021-04-02 99.5 F [facility] (F) 05:00:00 Heart Rate 2021-04-02 [facility] 05:00:00 Respitory Rate 2021-04-02 [facility] 05:00:00 Systolic (mm Hg) 2021-04-02 [facility] 05:00:00 Diastolic (mm Hg) 2021-04-02 [facility] ermann 05:00:00 Temperature Oral 2021-04-02 99.9 F [facility] (F) 01:00:00 Heart Rate 2021-04-02 [facility] 01:00:00 Respitory Rate 2021-04-02 [facility] 01:00:00 Systolic (mm Hg) 2021-04-02 [facility] 01:00:00 Diastolic (mm Hg) 2021-04-02 [facility] 01:00:00 Respitory Rate 2021-04-02 [facility] 00:26:00 Systolic (mm Hg) 2021-04-01 [facility] 22:15:00 Diastolic (mm Hg) 2021-04-01 [facility] ermann 22:15:00 Height 2021-03-31 167.64 cm [facility] 23:40:00 Height 2021-03-31 167.64 cm [facility] 19:50:00 Temperature Oral 2021-03-31 97.6 F [facility] (F) 15:45:00 Height 2021-03-31 167.64 cm [facility] 15:39:00 Weight 2021-03-31 [facility] 12:05:00 BMI Calculated 2021-03-31 [facility] 07:31:00 BMI Calculated 2021-03-31 [facility] 07:26:00 Weight 2021-03-31 [facility] 07:26:00 Heart Rate 2021-03-31 [facility] 07:26:00 Respitory Rate 2021-03-30 [facility] 18:18:00 Systolic (mm Hg) 2021-03-30 [facility] 18:18:00 Diastolic (mm Hg) 2021-03-30 [facility] 18:18:00 Respitory Rate 2021-03-30 [facility] 14:45:00 Systolic (mm Hg) 2021-03-30 [facility] 14:45:00 Diastolic (mm Hg) 2021-03-30 [facility] 14:45:00 Height 2021-03-30 165.1 cm [facility] 12:59:00 BMI Calculated 2021-03-30 [facility] 12:59:00 Weight 2021-03-30 [facility] 12:59:00 Systolic (mm Hg) 2021-03-30 [facility] 12:59:00 Diastolic (mm Hg) 2021-03-30 [facility] 12:59:00 Heart Rate 2021-03-30 [facility] 12:59:00 Respitory Rate 2021-03-30 [facility] 12:59:00 Temperature Oral 2021-03-30 98 F [facility] (F) 12:59:00 Temperature Oral 2021-03-14 98.2 F [facility] (F) 21:00:00 Heart Rate 2021-03-14 [facility] 21:00:00 Respitory Rate 2021-03-14 [facility] 21:00:00 Systolic (mm Hg) 2021-03-14 [facility] 21:00:00 Diastolic (mm Hg) 2021-03-14 [facility] 21:00:00 Temperature Oral 2021-03-14 98.5 F [facility] (F) 17:00:00 Heart Rate 2021-03-14 [facility] 17:00:00 Respitory Rate 2021-03-14 [facility] 17:00:00 Systolic (mm Hg) 2021-03-14 [facility] 17:00:00 Diastolic (mm Hg) 2021-03-14 [facility] 17:00:00 Temperature Oral 2021-03-14 99.1 F [facility] (F) 13:00:00 Heart Rate 2021-03-14 [facility] 13:00:00 Respitory Rate 2021-03-14 [facility] 13:00:00 Systolic (mm Hg) 2021-03-14 [facility] 13:00:00 Diastolic (mm Hg) 2021-03-14 [facility] 13:00:00 Height 2021-03-12 167.64 cm [facility] 15:30:00 Height 2021-03-12 167.64 cm [facility] 12:00:00 Respitory Rate 2021-03-12 [facility] 08:30:00 Systolic (mm Hg) 2021-03-12 [facility] 08:30:00 Diastolic (mm Hg) 2021-03-12 [facility] 08:30:00 Height 2021-03-12 167.64 cm [facility] 08:04:00 Respitory Rate 2021-03-12 [facility] 08:00:00 Systolic (mm Hg) 2021-03-12 [facility] 08:00:00 Diastolic (mm Hg) 2021-03-12 [facility] 08:00:00 Respitory Rate 2021-03-12 [facility] 07:30:00 Systolic (mm Hg) 2021-03-12 [facility] 07:30:00 Diastolic (mm Hg) 2021-03-12 [facility] 07:30:00 Temperature Oral 2021-03-12 98.4 F [facility] Husam rmann (F) 07:30:00 Height 2021-03-12 167.64 cm [facility] 06:13:00 Weight 2021-03-12 [facility] 06:13:00 Height 2021-03-12 167.64 cm [facility] 04:20:00 BMI Calculated 2021-03-12 [facility] 01:48:00 Weight 2021-03-12 [facility] 01:48:00 Heart Rate 2021-03-12 [facility] 01:48:00 Temperature Oral 2021-03-12 98.6 F [facility] (F) 01:48:00 Temperature Oral 2021-02-10 98.6 F [facility] He rmann (F) 17:00:00 Heart Rate 2021-02-10 [facility] 17:00:00 Respitory Rate 2021-02-10 [facility] 17:00:00 Systolic (mm Hg) 2021-02-10 [facility] 17:00:00 Diastolic (mm Hg) 2021-02-10 [facility] 17:00:00 Temperature Oral 2021-02-10 99.3 F [facility] He rmann (F) 13:00:00 Heart Rate 2021-02-10 [facility] 13:00:00 Respitory Rate 2021-02-10 [facility] 13:00:00 Systolic (mm Hg) 2021-02-10 [facility] 13:00:00 Diastolic (mm Hg) 2021-02-10 [facility] 13:00:00 Respitory Rate 2021-02-10 [facility] 12:05:00 Temperature Oral 2021-02-10 99.6 F [facility] He rmann (F) 09:00:00 Heart Rate 2021-02-10 [facility] 09:00:00 Systolic (mm Hg) 2021-02-10 [facility] 09[facility]00:00 Diastolic (mm Hg) 2021-02-10 [facility] 09:00:00 Height 2021-02-08 165.1 cm [facility] 04:05:00 Weight 2021-02-08 [facility] 04:05:00 BMI Calculated 2021-02-08 [facility] 04:05:00 Height 2021-02-08 165.1 cm [facility] 02:36:00 Weight 2021-02-08 [facility] 02:36:00 BMI Calculated 2021-02-08 [facility] 02:36:00 Weight 2021-02-07 [facility] 21:43:00 Systolic blood 2021-02-05 131 mm[Hg] [facility] pressure 14:40:00 [facility] Diastolic blood 2021-02-05 85 mm[Hg] [facility] pressure 14:40:00 [facility] Heart rate 2021-02-05 87 /min [facility] 14:40:00 [facility] Body temperature 2021-02-[address] [facility] 14:40:00 [facility] Respiratory rate 2021-02-05 15 /min [facility] 14[facility]40:00 [facility] Oxygen saturation 2021-02-05 98 /min [facility] in Arterial blood 14:40:00 [facility] nter by Pulse oximetry Body weight 2021-02-[address] [facility] 09[facility]12:00 [facility] BMI 2021-02-05 19.34 kg/m2 [facility] 09:12:00 [facility] Body height 2021-02-[address] [facility] 10[facility]29:00 [facility] Respitory Rate 2021-01-18 [facility] nancy 21:10:00 Systolic (mm Hg) 2021-01-18 [facility] 21:10:00 Diastolic (mm Hg) 2021-01-18 [facility] ermann 21:10:00 Respitory Rate 2021-01-18 [facility] 18:09:00 Systolic (mm Hg) 2021-01-18 [facility] 18:09:00 Diastolic (mm Hg) 2021-01-18 [facility] ermann 18:09:00 Height 2021-01-18 152.4 cm [facility] 16:49:00 BMI Calculated 2021-01-18 [facility] 16:49:00 Weight 2021-01-18 [facility] Mikhail n 16:49:00 Systolic (mm Hg) 2021-01-18 [facility] 16:49:00 Diastolic (mm Hg) 2021-01-18 [facility] ermann 16:49:00 Heart Rate 2021-01-18 [facility] Mikhail n 16:49:00 Respitory Rate 2021-01-18 [facility] 16:49:00 Temperature Oral 2021-01-18 97.9 F [facility] rmann (F) 16:49:00 Temperature Oral 2021-01-12 99.2 F [facility] (F) 17:22:00 Respitory Rate 2021-01-12 [facility] 17:22:00 Heart Rate 2021-01-12 [facility] 17:22:00 Systolic (mm Hg) 2021-01-12 [facility] 17:22:00 Diastolic (mm Hg) 2021-01-12 [facility] 17:22:00 Weight 2021-01-12 [facility] 17:09:00 Temperature Oral 2021-01-12 98.1 F [facility] He rmann (F) 13:58:00 Heart Rate 2021-01-12 [facility] 13:58:00 Respitory Rate 2021-01-12 [facility] 13:58:00 Systolic (mm Hg) 2021-01-12 [facility] 13:58:00 Diastolic (mm Hg) 2021-01-12 [facility] 13:58:00 Temperature Oral 2021-01-12 98.2 F [facility] Husam rmann (F) 09:06:00 Respitory Rate 2021-01-12 [facility] 09:06:00 Heart Rate 2021-01-12 [facility] 09:06:00 Systolic (mm Hg) 2021-01-12 [facility] 09:06:00 Diastolic (mm Hg) 2021-01-12 [facility] 09:06:00 Height 2021-01-12 165.1 cm [facility] 04:40:00 Weight 2021-01-12 [facility] 04:40:00 BMI Calculated 2021-01-12 [facility] 04:40:00 Height 2021-01-12 165.1 cm [facility] 04:22:00 BMI Calculated 2021-01-12 [facility] 04:22:00 Weight 2021-01-12 [facility] 04:22:00 BMI Calculated 2021-01-12 [facility] 03:17:00 Height 2021-01-12 165.1 cm [facility] 01:00:00 Temperature Oral 2020-11-20 98.6 F [facility] Husam rmann (F) 07:51:00 Heart Rate 2020-11-20 [facility] 07:51:00 Respitory Rate 2020-11-20 [facility] 07:51:00 Systolic (mm Hg) 2020-11-20 [facility] Husam rmann 07:51:00 Diastolic (mm Hg) 2020-11-20 [facility] 07:51:00 Temperature Oral 2020-11-20 98.2 F [facility] Husam rmann (F) 03:00:00 Heart Rate 2020-11-20 [facility] 03:00:00 Respitory Rate 2020-11-20 [facility] 03:00:00 Systolic (mm Hg) 2020-11-20 [facility] 03:00:00 Diastolic (mm Hg) 2020-11-20 [facility] 03:00:00 Height 2020-11-20 167.64 cm [facility] 00:55:00 BMI Calculated 2020-11-20 [facility] 00:55:00 Weight 2020-11-20 [facility] 00:55:00 Systolic (mm Hg) 2020-11-20 [facility] Husam rmann 00:55:00 Diastolic (mm Hg) 2020-11-20 [facility] Kwan ermann 00:55:00 Heart Rate 2020-11-20 [facility] 00:55:00 Respitory Rate 2020-11-20 [facility] 00:55:00 Temperature Oral 2020-11-20 98.1 F [facility] Husam rmann (F) 00:55:00 Systolic blood 2020-10-13 118 mm[Hg] [facility]: [facility]; [facility] 15:01:00 Position: Sitting Diastolic blood 2020-10-13 76 mm[Hg] [facility]: [facility]; [facility] 15:01:00 Position: Sitting Weight 2020-10-13 110.0625 [lb_av] [facility] 15:01:00 Body mass index 2020-10-13 17.76 kg/m2 [facility] (BMI) [Ratio] 15:01:00 Body temperature 2020-10-13 97.4 [degF] [facility] 15:01:00 Heart Rate 2020-10-13 84 /min [facility] 15:01:00 Systolic blood 2020-10-13 118 mm[Hg] Location: LUE; [facility] 14:33:00 Position: Sitting Diastolic blood 2020-10-13 76 mm[Hg] [facility]: [facility]; [facility] 14:33:00 Position: Sitting Weight 2020-10-13 110.0625 [lb_av] [facility] 14:33:00 Body mass index 2020-10-13 17.76 kg/m2 [facility] (BMI) [Ratio] 14:33:00 Body temperature 2020-10-13 97.4 [degF] [facility] 14:33:00 Heart Rate 2020-10-13 84 /min [facility] 14:33:00 Temperature Oral 2020-09-27 98.6 F [facility] He rmann (F) 18:44:00 Heart Rate 2020-09-27 [facility] 18:44:00 Respitory Rate 2020-09-27 [facility] 18:44:00 Systolic (mm Hg) 2020-09-27 [facility] He rmann 18:44:00 Diastolic (mm Hg) 2020-09-27 [facility] H ermann 18:44:00 Weight 2020-09-27 [facility] 17:29:00 Systolic (mm Hg) 2020-09-27 [facility] He rmann 17:29:00 Diastolic (mm Hg) 2020-09-27 [facility] H ermann 17:29:00 Heart Rate 2020-09-27 [facility] 17:29:00 Respitory Rate 2020-09-27 [facility] 17:29:00 Temperature Oral 2020-09-27 98.6 F [facility] rmann (F) 17:29:00 Systolic blood 2020-09-05 141 mm[Hg] [facility] 19:48:00 [facility] Diastolic blood 2020-09-05 89 mm[Hg] [facility] pressure 19:48:00 Hospital Heart rate 2020-09-05 72 /min [facility] 19:48:00 [facility] Body weight 2020-09-05 50.349 kg [facility] 19:48:00 [facility] BMI 2020-09-05 17.92 kg/m2 [facility] 19:48:00 Hospital Respiratory rate 2020-08-22 16 /min [facility] 20:00:00 Hospital Oxygen saturation 2020-08-22 95 /min [facility] in Arterial blood 20:00:00 [facility] by Pulse oximetry Body temperature 2020-08-22 36.56 Dang [facility] 18:45:00 Hospital Body height 2020-08-22 167.6 cm [facility] 17:25:00 [facility] Height 2020-08-05 167.64 cm [facility] 03:40:00 BMI Calculated 2020-08-05 [facility] 03:40:00 Weight 2020-08-05 [facility] 03:40:00 Systolic (mm Hg) 2020-08-05 [facility] 03:40:00 Diastolic (mm Hg) 2020-08-05 [facility] 03:40:00 Heart Rate 2020-08-05 [facility] 03:40:00 Respitory Rate 2020-08-05 [facility] 03:40:00 Temperature Oral 2020-08-05 99.1 F [facility] (F) 03:40:00 Systolic (mm Hg) 2020-07-23 [facility] 21:41:00 Diastolic (mm Hg) 2020-07-23 [facility] 21:41:00 Respitory Rate 2020-07-23 [facility] 21:41:00 Heart Rate 2020-07-23 [facility] 21:41:00 Temperature Oral 2020-07-23 98.5 F [facility] (F) 21:41:00 BMI Calculated 2020-07-23 [facility] 20:11:00 Height 2020-07-23 167.64 cm [facility] 19:34:00 BMI Calculated 2020-07-23 [facility] 19:34:00 Weight 2020-07-23 [facility] 19:34:00 Systolic (mm Hg) 2020-07-23 [facility] 19:34:00 Diastolic (mm Hg) 2020-07-23 [facility] 19:34:00 Heart Rate 2020-07-23 [facility] 19:34:00 Respitory Rate 2020-07-23 [facility] 19:34:00 Temperature Oral 2020-07-23 99.3 F [facility] (F) 19:34:00 Systolic blood 2020-07-14 135 mm[Hg] [facility]: R[facility]; [facility] 15:06:00 Position: Sitting Diastolic blood 2020-07-14 85 mm[Hg] [facility]: RUE; [facility] 15:06:00 Position: Sitting Weight 2020-07-14 166.5 [lb_av] [facility] 15:06:00 Body mass index 2020-07-14 26.87 kg/m2 [facility] (BMI) [Ratio] 15:06:00 Body temperature 2020-07-14 98.2 [degF] [facility] 15:06:00 Heart Rate 2020-07-14 77 /min [facility] 15:06:00 Temperature Oral 2020-05-30 98.3 F [facility] (F) 22:00:00 Heart Rate 2020-05-30 [facility] 22:00:00 Respitory Rate 2020-05-30 [facility] 22:00:00 Systolic (mm Hg) 2020-05-30 [facility] 22:00:00 Diastolic (mm Hg) 2020-05-30 [facility] 22:00:00 Temperature Oral 2020-05-30 98.4 F [facility] (F) 20:00:00 Heart Rate 2020-05-30 [facility] 20:00:00 Respitory Rate 2020-05-30 [facility] 20:00:00 Systolic (mm Hg) 2020-05-30 [facility] 20:00:00 Diastolic (mm Hg) 2020-05-30 [facility] 20:00:00 Systolic (mm Hg) 2020-05-30 [facility] 17:32:00 Diastolic (mm Hg) 2020-05-30 [facility] 17:32:00 Respitory Rate 2020-05-30 [facility] 17:32:00 Heart Rate 2020-05-30 [facility] 17:00:00 Temperature Oral 2020-05-30 98.3 F [facility] (F) 17:00:00 Weight 2020-05-30 [facility] 01:48:00 Systolic blood 2020-04-20 142 mm[Hg] Location: [facility]; [facility] 12:18:00 Position: Sitting Diastolic blood 2020-04-20 85 mm[Hg] [facility]: [facility]; [facility] 12:18:00 Position: Sitting Weight 2020-04-20 113.7 [lb_av] [facility] 12:18:00 Body mass index 2020-04-20 18.35 kg/m2 [facility] (BMI) [Ratio] 12:18:00 Heart Rate 2020-04-20 87 /min Location: R [facility] 12:18:00 Carotid; Body temperature 2020-04-20 98.5 [degF] Method: [facility] 12:18:00 Temporal Temperature Oral 2020-04-13 99.2 F [facility] (F) 17:00:00 Heart Rate 2020-04-13 [facility] 17:00:00 Respitory Rate 2020-04-13 [facility] 17:00:00 Systolic (mm Hg) 2020-04-13 [facility] 17:00:00 Diastolic (mm Hg) 2020-04-13 [facility] 17:00:00 Temperature Oral 2020-04-13 98.5 F [facility] (F) 13:00:00 Heart Rate 2020-04-13 [facility] 13:00:00 Respitory Rate 2020-04-13 [facility] 13:00:00 Systolic (mm Hg) 2020-04-13 [facility] 13:00:00 Diastolic (mm Hg) 2020-04-13 [facility] 13:00:00 Respitory Rate 2020-04-13 [facility] 11:54:00 Temperature Oral 2020-04-13 98.2 F [facility] (F) 09:00:00 Systolic (mm Hg) 2020-04-13 [facility] 09:00:00 Diastolic (mm Hg) 2020-04-13 [facility] 09:00:00 Heart Rate 2020-04-12 [facility] 08:33:00 Height 2020-04-10 165.1 cm [facility] 17:14:00 Weight 2020-04-10 [facility] 17:14:00 BMI Calculated 2020-04-10 [facility] 17:14:00 Weight 2020-04-10 [facility] 10:34:00 Temperature Oral 2020-03-23 99 F [facility] (F) 17:30:00 Systolic (mm Hg) 2020-03-23 [facility] 17:30:00 Diastolic (mm Hg) 2020-03-23 [facility] 17:30:00 Temperature Oral 2020-03-23 99.4 F [facility] (F) 13:00:00 Heart Rate 2020-03-23 [facility] 13:00:00 Respitory Rate 2020-03-23 [facility] 13:00:00 Systolic (mm Hg) 2020-03-23 [facility] 13:00:00 Diastolic (mm Hg) 2020-03-23 [facility] 13:00:00 Systolic (mm Hg) 2020-03-23 [facility] 09:00:00 Diastolic (mm Hg) 2020-03-23 [facility] 09:00:00 Heart Rate 2020-03-23 [facility] 09:00:00 Temperature Oral 2020-03-23 99.1 F [facility] (F) 09:00:00 Heart Rate 2020-03-23 [facility] 05:00:00 Respitory Rate 2020-03-22 [facility] 21:00:00 Respitory Rate 2020-03-21 [facility] 21:00:00 Height 2020-03-19 167.64 cm [facility] 06:24:00 Weight 2020-03-19 [facility] 06:24:00 BMI Calculated 2020-03-19 [facility] 06:24:00 Height 2020-03-19 167.64 cm [facility] 00:48:00 BMI Calculated 2020-03-19 [facility] 00:48:00 Weight 2020-03-19 [facility] 00:48:00 Temperature Oral 2020-01-27 98.1 F [facility] (F) 17:00:00 Heart Rate 2020-01-27 [facility] 17:00:00 Respitory Rate 2020-01-27 [facility] 17:00:00 Systolic (mm Hg) 2020-01-27 [facility] 17:00:00 Diastolic (mm Hg) 2020-01-27 [facility] 17:00:00 Respitory Rate 2020-01-27 [facility] 13:14:00 Temperature Oral 2020-01-27 98.8 F [facility] (F) 13:00:00 Heart Rate 2020-01-27 [facility] 13:00:00 Respitory Rate 2020-01-27 [facility] 13:00:00 Systolic (mm Hg) 2020-01-27 [facility] 13:00:00 Diastolic (mm Hg) 2020-01-27 [facility] 13:00:00 Systolic (mm Hg) 2020-01-27 [facility] 09:00:00 Diastolic (mm Hg) 2020-01-27 [facility] 09:00:00 Temperature Oral 2020-01-27 101.2 F [facility] (F) 09:00:00 Heart Rate 2020-01-27 [facility] 09:00:00 Height 2020-01-26 167.64 cm [facility] 06:14:00 Weight 2020-01-26 [facility] 06:14:00 BMI Calculated 2020-01-26 [facility] 06:14:00 Weight 2020-01-26 [facility] 03:09:00 Heart Rate 2020-01-07 [facility] 20:31:00 Respitory Rate 2020-01-07 [facility] 20:31:00 Systolic (mm Hg) 2020-01-07 [facility] 20:31:00 Diastolic (mm Hg) 2020-01-07 [facility] 20:31:00 Heart Rate 2020-01-07 [facility] 20:14:00 Respitory Rate 2020-01-07 [facility] 20:14:00 Systolic (mm Hg) 2020-01-07 [facility] 20:14:00 Diastolic (mm Hg) 2020-01-07 [facility] 20:14:00 Systolic (mm Hg) 2020-01-07 [facility] 18:06:00 Diastolic (mm Hg) 2020-01-07 [facility] 18:06:00 Temperature Oral 2020-01-07 98.5 F [facility] (F) 18:06:00 Heart Rate 2020-01-07 [facility] 18:06:00 Respitory Rate 2020-01-07 [facility] 18:06:00 Temperature Oral 2020-01-07 98.3 F [facility] (F) 14:12:00 Temperature Oral 2020-01-07 97.2 F [facility] (F) 10:00:00 Height 2020-01-04 167.64 cm [facility] 02:14:00 Weight 2020-01-04 [facility] 02:14:00 BMI Calculated 2020-01-04 [facility] 02:14:00 Height 2020-01-03 167.64 cm [facility] 18:40:00 BMI Calculated 2020-01-03 [facility] 18:40:00 Weight 2020-01-03 [facility] 18:40:00 Heart Rate 2019-10-29 [facility] 20:41:00 Systolic (mm Hg) 2019-10-29 [facility] 20:41:00 Diastolic (mm Hg) 2019-10-29 [facility] 20:41:00 Respitory Rate 2019-10-29 [facility] 20:41:00 Systolic (mm Hg) 2019-10-29 [facility] 17:48:00 Diastolic (mm Hg) 2019-10-29 [facility] 17:48:00 Heart Rate 2019-10-29 [facility] 17:48:00 Temperature Oral 2019-10-29 98.6 F [facility] (F) 17:47:00 Heart Rate 2019-10-29 [facility] 17:47:00 Respitory Rate 2019-10-29 [facility] 17:47:00 Systolic (mm Hg) 2019-10-29 [facility] 17:47:00 Diastolic (mm Hg) 2019-10-29 [facility] 17:47:00 Temperature Oral 2019-10-29 98.5 F [facility] (F) 13:40:00 Respitory Rate 2019-10-29 [facility] 13:40:00 Temperature Oral 2019-10-29 98.1 F [facility] r[facility] (F) 09:56:00 Height 2019-10-26 167.64 cm [facility] 22:04:00 Weight 2019-10-26 [facility] 22:04:00 BMI Calculated 2019-10-26 [facility] 22:04:00 Height 2019-10-26 167.64 cm [facility] 01:28:00 BMI Calculated 2019-10-26 [facility] 01:28:00 Weight 2019-10-26 [facility] 01:28:00 Systolic (mm Hg) 2019-10-21 [facility] 18:32:00 Diastolic (mm Hg) 2019-10-21 [facility] 18:32:00 Respitory Rate 2019-10-21 [facility] 18:32:00 Heart Rate 2019-10-21 [facility] 18:32:00 Temperature Oral 2019-10-21 98.2 F [facility] (F[facility] 18:32:00 Systolic (mm Hg) 2019-10-21 [facility] 15:36:00 Diastolic (mm Hg) 2019-10-21 [facility] 15:36:00 Heart Rate 2019-10-21 [facility] 15:36:00 Respitory Rate 2019-10-21 [facility] 15:36:00 Temperature Oral 2019-10-21 97.9 F [facility] (F) 15:36:00 Height 2019-10-21 167.64 cm [facility] 15:36:00 BMI Calculated 2019-10-21 [facility] 15:36:00 Weight 2019-10-21 [facility] 15:36:00 BP Systolic 2019-10-11 135 mm[Hg] [facility] 09:38:00 BP Diastolic 2019-10-11 81 mm[Hg] [facility] 09:38:00 Height 2019-10-11 66 [in_us] [facility] 09:38:00 Weight 2019-10-11 118 [lb_av] [facility] 09:38:00 Body Mass Index 2019-10-11 19.05 kg/m2 [facility] Calculated 09:38:00 Heart Rate 2019-10-11 87 /min [facility] 09:38:00 Systolic (mm Hg) 2019-10-06 [facility] 05:39:00 Diastolic (mm Hg) 2019-10-06 [facility] 05:39:00 Heart Rate 2019-10-06 [facility] 05:39:00 Respitory Rate 2019-10-06 [facility] 05:39:00 Temperature Oral 2019-10-06 97.3 F [facility] (F) 05:39:00 Temperature Oral 2019-10-06 98.4 F [facility] (F) 03:20:00 Heart Rate 2019-10-06 [facility] 03:20:00 Respitory Rate 2019-10-06 [facility] 03:20:00 Systolic (mm Hg) 2019-10-06 [facility] 03:20:00 Diastolic (mm Hg) 2019-10-06 [facility] 03:20:00 Systolic (mm Hg) 2019-10-06 [facility] 02:12:00 Diastolic (mm Hg) 2019-10-06 [facility] 02:12:00 Heart Rate 2019-10-06 [facility] 02:12:00 Respitory Rate 2019-10-06 [facility] 02:12:00 Temperature Oral 2019-10-06 98.4 F [facility] (F) 02:12:00 Height 2019-10-06 167.64 cm [facility] 02:12:00 BMI Calculated 2019-10-06 [facility] 02:12:00 Weight 2019-10-06 [facility] 02:12:00 BP Systolic 2019-10-01 106 mm[Hg] Location: RUE; [facility] 14:48:00 Position: Sitting BP Diastolic 2019-10-01 71 mm[Hg] Location: RUE; [facility] 14:48:00 Position: Sitting Height 2019-10-01 66 [in_us] [facility] 14:48:00 Weight 2019-10-01 106 [lb_av] [facility] 14:48:00 Body Mass Index 2019-10-01 17.11 kg/m2 [facility] Calculated 14:48:00 Heart Rate 2019-10-01 88 /min [facility] 14:48:00 BP Systolic 2019-09-30 120 mm[Hg] Location: LUE; [facility] 13:20:00 Position: Sitting BP Diastolic 2019-09-30 78 mm[Hg] Location: LUE; [facility] 13:20:00 Position: Sitting Weight 2019-09-30 107.125 [lb_av] [facility] 13:20:00 Body Mass Index 2019-09-30 17.29 kg/m2 [facility] Calculated 13:20:00 Heart Rate 2019-09-30 109 /min [facility] 13:20:00 BP Systolic 2019-09-03 113 mm[Hg] Location: RUE; [facility] 15:06:00 Position: Sitting BP Diastolic 2019-09-03 73 mm[Hg] Location: RUE; [facility] 15:06:00 Position: Sitting Height 2019-09-03 66 [in_us] [facility] 15:06:00 Weight 2019-09-03 109 [lb_av] [facility] 15:06:00 Body Mass Index 2019-09-03 17.59 kg/m2 [facility] Calculated 15:06:00 Heart Rate 2019-09-03 81 /min [facility] 15:06:00 BP Systolic 2019-08-20 108 mm[Hg] Location: LLE; [facility] 15:38:00 Position: Sitting BP Diastolic 2019-08-20 73 mm[Hg] Location: LLE; [facility] 15:38:00 Position: Sitting Height 2019-08-20 66 [in_us] [facility] 15:38:00 Weight 2019-08-20 109 [lb_av] [facility] 15:38:00 Body Mass Index 2019-08-20 17.59 kg/m2 [facility]culated 15:38:00 Heart Rate 2019-08-20 87 /min [facility] 15:38:00 Systolic (mm Hg) 2018-07-20 [facility] 19:33:00 Diastolic (mm Hg) 2018-07-20 [facility] 19:33:00 Heart Rate 2018-07-20 [facility] 19:33:00 Temperature Oral 2018-07-20 98.2 F [facility] (F) 19:33:00 Respitory Rate 2018-07-20 [facility] 17:14:00 Heart Rate 2018-07-20 [facility] 17:14:00 Systolic (mm Hg) 2018-07-20 [facility] 17:14:00 Diastolic (mm Hg) 2018-07-20 [facility] 17:14:00 Height 2018-07-20 167.64 cm [facility] 15:48:00 Temperature Oral 2018-07-20 98.7 F [facility] (F) 15:48:00 Heart Rate 2018-07-20 [facility] 15:48:00 Respitory Rate 2018-07-20 [facility] 15:48:00 Systolic (mm Hg) 2018-07-20 [facility] 15:48:00 Diastolic (mm Hg) 2018-07-20 [facility] 15:48:00 BMI Calculated 2018-07-20 [facility] 15:48:00 Weight 2018-07-20 [facility] 15:48:00 Temperature Oral 2018-07-16 98 F [facility] (F) 13:00:00 Heart Rate 2018-07-16 [facility] 13:00:00 Respitory Rate 2018-07-16 [facility] 13:00:00 Systolic (mm Hg) 2018-07-16 [facility] 13:00:00 Diastolic (mm Hg) 2018-07-16 [facility] 13:00:00 Temperature Oral 2018-07-16 98.2 F [facility] (F) 05:00:00 Respitory Rate 2018-07-16 [facility] 05:00:00 Heart Rate 2018-07-16 [facility] 05:00:00 Systolic (mm Hg) 2018-07-16 [facility] 05:00:00 Diastolic (mm Hg) 2018-07-16 [facility] 05:00:00 Systolic (mm Hg) 2018-07-15 [facility] 21:40:00 Diastolic (mm Hg) 2018-07-15 [facility] 21:40:00 Heart Rate 2018-07-15 [facility] 21:40:00 Respitory Rate 2018-07-15 [facility] 21:40:00 Temperature Oral 2018-07-15 99 F Rey wiley (F) 21:40:00 Weight 2018-07-14 [facility] 14:27:00 Height 2018-07-14 157.48 cm [facility] n 14:27:00 BMI Calculated 2018-07-14 [facility] 14:27:00 Weight 2018-07-14 [facility] 14:19:00 BMI Calculated 2018-07-14 [facility] 14:19:00 Height 2018-07-14 157.48 cm [facility]adan n 14:19:00 Procedures Procedure Date / Time Performing Clinician Source Performed [id number] 2022-04-10 00:00:00 TORRES.05 [facility] [place] [id number] 2022-04-09 00:00:00 TORRES.05 [facility] [place] [id number] 2021-09-22 00:00:00 TORRES.05 [facility] [place] EPITOME - Neuro Routine 2021-04-30 00:00:00 [facility] EEG [QL] LEVETIRACETAM 2021-04-30 00:00:00 [facility] (KEPPRA) [id number] 2021-02-27 00:00:00 IBRNA [facility] [id number] 2021-02-26 00:00:00 [facility] [id number] 2021-02-25 00:00:00 [facility] [id number] 2021-02-24 00:00:00 [facility] [id number] 2021-02-23 00:00:00 [facility] [id number] 2021-02-22 00:00:00 [facility] [id number] 2021-02-21 00:00:00 [facility] [id number] 2021-02-20 00:00:00 IBRNA [facility] [id number] 2021-02-19 00:00:00 ABDHA.01 [facility] [id number] 2021-02-19 00:00:00 RAMON [facility] [id number] 2021-02-18 00:00:00 [facility] [id number] 2021-02-18 00:00:00 MARISSA [facility] [id number] 2021-02-17 00:00:00 RAMON [facility] [id number] 2021-02-11 00:00:00 [facility] PREPARE LEUKO-REDUCED RBC 2021-02-06 23:54:00 Patricia Hines [facility] TRANSFUSE LEUKO-REDUCED 2021-02-05 13:51:02 Patricia Hines [facility] RED BLOOD CELLS Center TRANSFUSE LEUKO-REDUCED 2021-02-05 12:03:00 Patricia Hines [facility] RED BLOOD CELLS Center TRANSFUSE LEUKO-REDUCED 2021-02-05 11:06:09 Patricia Hines [facility] RED BLOOD CELLS Center TRANSFUSE LEUKO-REDUCED 2021-02-05 09:25:00 Patricia Hines [facility] RED BLOOD CELLS Center TYPE AND SCREEN, AUTOMATED 2021-02-02 10:28:00 Patricia Hines [facility] [Q] PROTEIN, TOTAL 2021-01-12 00:00:00 [facility] W/CREAT, RANDOM URINE [QL] CBC (INCLUDES 2021-01-12 00:00:00 [facility] DIFF/PLT) [QL] CMP W/EGFR 2021-01-12 00:00:00 [facility] [QL] COMPLEMENT COMPONENT 2021-01-12 00:00:00 [facility] C3C [QL] COMPLEMENT COMPONENT 2021-01-12 00:00:00 [facility] C4C [QL] C-REACTIVE PROTEIN 2021-01-12 00:00:00 [facility] [QL] SED RATE BY MODIFIED 2021-01-12 00:00:00 [facility] WESTERGREN [QL] URINALYSIS, COMPLETE 2021-01-12 00:00:00 [facility] W/REFLEX TO CULTURE [Q] DNA (DS) ANTIBODY, 2021-01-12 00:00:00 [facility] CRITHIDIA IFA W/REFLEX TO TITER URINE CULTURE 2021-01-11 11:52:00 Gabriella Singh [facility] HLA TYPING CII 2021-01-11 11:52:00 [facility] CI 2021-01-11 11:52:00 [facility] [place] T SPOT TB 2021-01-11 11:52:00 [facility] URINALYSIS W/ MICROSCOPIC 2021-01-11 11:52:00 [facility] FLOW PRA CLASS I WITH 2021-01-11 11:51:00 [facility] REFLEX TO ANTIBODY S. Center SPECIFICITY CBC W/PLT COUNT & AUTO 2021-01-11 11:51:00 [facility] DIFFERENTIAL [place]. [place] CYTOMEGALOVIRUS ANTIBODY, 2021-01-11 11:51:00 [facility] IGG [facility] [place] CYTOMEGALOVIRUS ANTIBODY, 2021-01-11 11:51:00 [facility] IGM [facility] [place] COMPREHENSIVE METABOLIC 2021-01-11 11:51:00 Gabriella Singh C HI [facility] PANEL S. [place] EBV ANTIBODY, IGM 2021-01-11 11:51:00 [facility]. [place] GAMMA GLUTAMYL TRANSFERASE 2021-01-11 11:51:00 [facility] (GGT) . [place] HEPATITIS B SURFACE 2021-01-11 11:51:00 [facility] ANTIBODY S. [place] HEPATITIS B SURFACE 2021-01-11 11:51:00 [facility] ANTIGEN . [place] HEPATITIS B CORE ANTIBODY, 2021-01-11 11:51:00 [facility] IGM [facility] [place] HEPATITIS C ANTIBODY 2021-01-11 11:51:00 [facility] HC LAB HIV-1 AG W/HIV-1&2 2021-01-11 11:51:00 [facility] AB S. Center PHOSPHORUS 2021-01-11 11:51:00 [facility] PTH, INTACT 2021-01-11 11:51:00 [facility] PT/APTT 2021-01-11 11:51:00 [facility] PROTHROMBIN TIME/INR 2021-01-11 11:51:00 [facility] RPR 2021-01-11 11:51:00 [facility] URIC ACID 2021-01-11 11:51:00 [facility] VARICELLA ZOSTER ANTIBODY, 2021-01-11 11:51:00 [facility] IGG . [place] LIPID PANEL 2021-01-11 11:51:00 [facility] HEMOGLOBIN A1C 2021-01-11 11:51:00 [facility] FLOW PRA CLASS II WITH 2021-01-11 11:51:00 [facility] REFLEX TO ANTIBODY S. [place] SPECIFICITY HEPATITIS B CORE ANTIBODY, 2021-01-11 11:51:00 [facility] TOTAL [facility] ANTITHROMBIN III 2021-01-11 11:51:00 [facility] FACTOR 5 LEIDEN PCR 2021-01-11 11:51:00 [facility] (THROMBOTIC RISK) [facility] HC LAB PROTHROMBIN FACTOR 2021-01-11 11:51:00 Timmins, [facility] II [facility] PROTEIN C ACTIVITY 2021-01-11 11:51:00 [facility] PROTEIN S ACTIVITY 2021-01-11 11:51:00 [facility] CARDIOLIPIN ANTIBODIES, 2021-01-11 11:51:00 [facility] IGG AND IGM [facility] COMPLEMENT COMPONENT C4 2021-01-11 11:51:00 [facility] DOUBLE-STRANDED DNA 2021-01-11 11:51:00 [facility] (DSDNA) ANTIBODY [facility] EQUAL MIX, NORMAL PLASMA 2021-01-11 11:51:00 [facility] ANTI-DNA TITER 2021-01-11 11:51:00 [facility] AB SPECIFICITY CLASS I 2021-01-11 11:51:00 [facility] AB SPECIFICITY CLASS II 2021-01-11 11:51:00 Gabriella Singh [facility] TYPE AND SCREEN, AUTOMATED 2021-01-11 11:51:00 Tamara Singh [facility] DIRECT AHG (REECE)/DIRECT 2021-01-11 11:51:00 Gabriella Singh [facility] VICKY [facility] CBC W/PLT COUNT & AUTO 2021-01-11 11:51:00 [facility] DIFFERENTIAL [facility] US PELVIS WITH DOPPLER 2021-01-11 11:22:00 [facility] US ABDOMEN COMPLETE 2021-01-11 11:21:00 [facility] [QL] CMP W/EGFR 2020-10-13 00:00:00 [facility] [QL] COMPLEMENT COMPONENT 2020-10-13 00:00:00 [facility] C3C [QL] COMPLEMENT COMPONENT 2020-10-13 00:00:00 [facility] C4C [QL] CBC (INCLUDES 2020-10-13 00:00:00 [facility] DIFF/PLT) [Q] PROTEIN, TOTAL 2020-10-13 00:00:00 [facility] W/CREAT, RANDOM URINE [QL] C-REACTIVE PROTEIN 2020-10-13 00:00:00 [facility] [QL] SED RATE BY MODIFIED 2020-10-13 00:00:00 [facility] WESTERGREN [Q] DNA (DS) ANTIBODY, 2020-10-13 00:00:00 [facility] CRITHIDIA IFA W/REFLEX TO TITER NH AN ELECTIVE 2020-08-22 14:45:04 Kaye Barbour [facility] spital ENDOTRACHEAL AIRWAY REPAIR, HERNIA, INCISIONAL 2020-08-22 14:18:00 [facility] OR VENTRAL E. INSERTION, CATHETER, 2020-08-22 14:18:00 [facility] DIALYSIS, PERITONEAL, E. LAPAROSCOPIC ABO AND RH CONFIRMATION 2020-08-22 13:30:00 [facility] E. POC PANEL 2020-08-22 12:59:00 [facility] E. BASIC METABOLIC PANEL 2020-08-22 12:50:00 [facility] ESTIMATED GFR 2020-08-22 12:50:00 [facility] [QL] COMPLEMENT COMPONENT 2020-07-14 00:00:00 [facility] C3C [QL] COMPLEMENT COMPONENT 2020-07-14 00:00:00 [facility] C4C [QL] C-REACTIVE PROTEIN 2020-07-14 00:00:00 [facility] [Q] DNA (DS) ANTIBODY, 2020-07-14 00:00:00 [facility] CRITHIDIA IFA W/REFLEX TO TITER [Q] PROTEIN, TOTAL 2020-07-14 00:00:00 [facility] W/CREAT, RANDOM URINE [QL] CBC (INCLUDES 2020-04-20 00:00:00 [facility] DIFF/PLT) [QL] CMP W/EGFR 2020-04-20 00:00:00 [facility] [QL] COMPLEMENT COMPONENT 2020-04-20 00:00:00 [facility] C3C [QL] COMPLEMENT COMPONENT 2020-04-20 00:00:00 [facility] C4C [Q] PROTEIN, TOTAL 2020-04-20 00:00:00 [facility] W/CREAT, RANDOM URINE [Q] DNA (DS) ANTIBODY, 2020-04-20 00:00:00 [facility] CRITHIDIA IFA W/REFLEX TO TITER [LH] CBC (without 2020-01-14 00:00:00 [facility] differential) [QLH] CBC (INCLUDES 2020-01-14 00:00:00 [facility] DIFF/PLT) [QLH] CMP W/EGFR 2020-01-14 00:00:00 [facility] [QLH] COMPLEMENT COMPONENT 2020-01-14 00:00:00 [facility] C3C [QLH] COMPLEMENT COMPONENT 2020-01-14 00:00:00 [facility] C4C [QLH] C-REACTIVE PROTEIN 2020-01-14 00:00:00 [facility] [QLH] URINALYSIS, COMPLETE 2020-01-14 00:00:00 [facility] W/REFLEX TO CULTURE [QH] PROTEIN, TOTAL 2020-01-14 00:00:00 [facility] W/CREAT, RANDOM URINE CT Abdomen wo contrast 2020-01-14 00:00:00 [facility] [id number] [L] CBC (without 2020-01-14 00:00:00 [facility] differential) [QL] CBC (INCLUDES 2020-01-14 00:00:00 [facility] DIFF/PLT) [QL] CMP W/EGFR 2020-01-14 00:00:00 [facility] [QL] COMPLEMENT COMPONENT 2020-01-14 00:00:00 [facility] C3C [QL] COMPLEMENT COMPONENT 2020-01-14 00:00:00 [facility] C4C [QL] C-REACTIVE PROTEIN 2020-01-14 00:00:00 [facility] [QL] URINALYSIS, COMPLETE 2020-01-14 00:00:00 [facility] W/REFLEX TO CULTURE [Q] PROTEIN, TOTAL 2020-01-14 00:00:00 [facility] W/CREAT, RANDOM URINE [QLH] RENAL FUNCTION PANEL 2019-10-14 00:00:00 [facility] W/EGFR [QLH] RENAL FUNCTION PANEL 2019-10-11 00:00:00 [facility] W/EGFR [QLH] URINALYSIS, COMPLETE 2019-10-11 00:00:00 [facility] W/REFLEX TO CULTURE [QH] PROTEIN, TOTAL 2019-10-11 00:00:00 [facility] W/CREAT, RANDOM URINE US Pelvic with 2019-10-01 00:00:00 [facility] Transvaginal and Pelvic Doppler [id number] [QLH] SCL-70 ANTIBODY 2019-09-30 00:00:00 [facility] [QLH] SJOGRENS ANTIBODIES 2019-09-30 00:00:00 [facility] (SS-A,SS-B) [QL] LAUREL SCREEN IFA W/REFL 2019-09-30 00:00:00 [facility] TITER IFA [QL] ANTIPHOSPHOLIPID 2019-09-30 00:00:00 [facility] ANTIBODY PANEL [QLH] CBC (INCLUDES 2019-09-30 00:00:00 [facility] DIFF/PLT) [QLH] CMP W/EGFR 2019-09-30 00:00:00 [facility] [QLH] COMPLEMENT COMPONENT 2019-09-30 00:00:00 [facility] C3C [QLH] COMPLEMENT COMPONENT 2019-09-30 00:00:00 [facility] C4C [QLH] C-REACTIVE PROTEIN 2019-09-30 00:00:00 [facility] [QLH] CREATINE KINASE, 2019-09-30 00:00:00 [facility] TOTAL [QLH] RHEUMATOID FACTOR 2019-09-30 00:00:00 [facility] [QLH] LAUREL PANEL, 2019-09-30 00:00:00 [facility] COMPREHENSIVE [QLH] VITAMIN D, 2019-09-30 00:00:00 [facility] 25-HYDROXY, LC/MS/MS [Q] DNA (DS) ANTIBODY, 2019-09-30 00:00:00 [facility] CRITHIDIA IFA W/REFLEX TO TITER [QLH] URINALYSIS, COMPLETE 2019-09-30 00:00:00 [facility] [QH] PROTEIN, TOTAL 2019-09-30 00:00:00 [facility] W/CREAT, RANDOM URINE [QH] HIV AB, HIV 1/2, EIA, 2019-08-20 00:00:00 [facility] WITH REFLEXES . [facility] - PAP 2019-08-20 00:00:00 [facility] [QH] HEPATITIS B SURFACE 2019-08-20 00:00:00 [facility] ANTIGEN W/REFL CONFIRM [QLH] HEPATITIS C ANTIBODY 2019-08-20 00:00:00 [facility] [QLH] RPR 2019-08-20 00:00:00 [facility] [QLH] T4, FREE 2019-08-20 00:00:00 [facility] [QLH] TESTOSTERONE, FREE 2019-08-20 00:00:00 [facility] AND TOTAL, LC/MS/MS [Q] HSV 1/2 IGG, 2019-08-20 00:00:00 [facility] HERPESELECT TYPE SPECIFIC AB (REFL) [QL] FSH 2019-08-20 00:00:00 [facility] [QLH] PROLACTIN 2019-08-20 00:00:00 [facility] [QLH] LH 2019-08-20 00:00:00 [facility] Cystectomy 1997-11-10 00:00:00 [facility] Her agudelo History of Kidney biopsy [facility] of Peritoneal [facility] catheter placement Plan of Care Planned Activity Planned Date Details Comments Source Future Scheduled 2028-07-16 DTAP/TDAP/TD [facility] 00:00:00 VACCINES (2 - Td) Medical Ce nter [code = DTAP/TDAP/TD VACCINES (2 - Td)] Future Scheduled 2028-07-16 DTAP/TDAP/TD [facility] 00:00:00 VACCINES (2 - Td) Medical Ce nter [code = DTAP/TDAP/TD VACCINES (2 - Td)] Future Scheduled 2028-07-16 DTAP/TDAP/TD [facility] 00:00:00 VACCINES (2 - Td or Medical Center Tdap) [code = DTAP/TDAP/TD VACCINES (2 - Td or Tdap)] Future Scheduled 2028-07-16 DTAP/TDAP/TD [facility] 00:00:00 VACCINES (2 - Td or Medical Center Tdap) [code = DTAP/TDAP/TD VACCINES (2 - Td or Tdap)] Future Scheduled 2024-01-[address] [facility] 00:00:00 (procedure) [code = [facility] 80201402] Future Scheduled 2024-01-[address] [facility] 00:00:00 (procedure) [code = [facility] [id number]] Future Scheduled 2024-01-[address] [facility] Test 00:00:00 (procedure) [code = [facility] [id number]] Future Scheduled 2024-01-[address] [facility] Test 00:00:00 (procedure) [code = [facility] [id number]] Future Scheduled 2022-01-07 [facility] 00:00:00 malignant neoplasm of cervix (procedure) [code = 527578832] Future Scheduled 2022-01-07 [facility] 00:00:00 malignant neoplasm of cervix (procedure) [code = 089889233] Future Scheduled 2021-08-10 [facility] 00:00:00 Seasonal Oct to January (>/= 19 yrs) [code = [facility] Seasonal Oct to January (>/= 19 yrs)] Future Scheduled 2021-08-10 [facility] 00:00:00 Seasonal Oct to January (>/= 19 yrs) [code = [facility] Seasonal Oct to January (>/= 19 yrs)] Future Scheduled 2021-08-10 [facility] 00:00:00 Seasonal Oct to January (>/= 19 yrs) [code = [facility] Seasonal Oct to January (>/= 19 yrs)] Future Scheduled 2021-08-10 [facility] 00:00:00 Seasonal Oct to January (>/= 19 yrs) [code = IMM Influenza Seasonal Oct to January (>/= 19 yrs)] Future Scheduled 2021 [facility] 00:00:00 malignant neoplasm of cervix (procedure) [code = 815663860] Future Scheduled 2021 [facility] 00:00:00 malignant neoplasm of cervix (procedure) [code = 434956913] Future Scheduled 2021 [facility] 00:00:00 malignant neoplasm of cervix (procedure) [code = 962290995] Future Scheduled 2021 [facility] 00:00:00 malignant neoplasm of cervix (procedure) [code = 544914610] Future Scheduled 2021 [facility] 00:00:00 malignant neoplasm of cervix (procedure) [code = 868443232] Future Scheduled 2021 [facility] 00:00:00 malignant neoplasm of cervix (procedure) [code = 658006688] Future Scheduled 2021-07-[address] [facility] Test 00:00:00 (#1) [code = Medical Center INFLUENZA VACCINE (#1)] Future Scheduled 2021-07-[address] [facility] Test 00:00:00 (#1) [code = [facility] INFLUENZA VACCINE (#1)] Future Scheduled 2021-07-[address] [facility] Test 00:00:00 (#1) [code = [facility] INFLUENZA VACCINE (#1)] Future Scheduled 2021-07-[address] [facility] Test 00:00:00 (#1) [code = [facility] INFLUENZA VACCINE (#1)] Diagnostic Test 2021-04-30 EPITOME - Neuro [facility] Pending 00:00:00 Routine EEG [code = 16072] Diagnostic Test 2020-01-14 CT Abdomen wo [facility]ending 00:00:00 contrast 02700 [code = 57291] Diagnostic Test 2019-10-25 [QLH] RENAL FUNCTION [facility] Pending 00:00:00 PANEL W/EGFR [code = [QLH] RENAL FUNCTION PANEL W/EGFR] Diagnostic Test 2019-10-25 [QLH] URINALYSIS, [facility] Pending 00:00:00 COMPLETE W/REFLEX TO CULTURE [code = [QLH] URINALYSIS, COMPLETE W/REFLEX TO CULTURE] Diagnostic Test 2019-10-25 [[facility]] PROTEIN, TOTAL [facility] Pending 00:00:00 W/CREAT, RANDOM URINE [code = [QH] PROTEIN, TOTAL W/CREAT, RANDOM URINE] Future Scheduled [address] [facility] Test 00:00:00 malignant neoplasm [facility] enter of cervix (procedure) [code = [id number]] Future Scheduled [address] [facility] Test 00:00:00 malignant neoplasm [facility] enter of cervix (procedure) [code = [id number]] Future Scheduled [address] [facility] Test 00:00:00 malignant neoplasm [facility] enter of cervix (procedure) [code = [id number]] Future Scheduled [address] [facility] Test 00:00:00 malignant neoplasm [facility] enter of cervix (procedure) [code = [id number]] Future Scheduled 2003 COVID-19 Vaccine (1) [facility] 00:00:00 [code = COVID-19 Vaccine (1)] Future Scheduled 2003 COVID-19 Vaccine (1) [facility] 00:00:00 [code = COVID-19 Vaccine (1)] Future Scheduled 2003 COVID-19 Vaccine (1) [facility] 00:00:00 [code = COVID-19 Vaccine (1)] Future Scheduled 2003 COVID-19 Vaccine (1) [facility] 00:00:00 [code = COVID-19 Vaccine (1)] Future Scheduled 2003 COVID-19 VACCINE (1) [facility] Test 00:00:00 [code = COVID-[address] VACCINE (1)] Future Scheduled 2003 COVID-19 VACCINE (1) [facility] Test 00:00:00 [code = COVID-[address] VACCINE (1)] Future Scheduled 2003 COVID-19 VACCINE (1) [facility] Test 00:00:00 [code = COVID-[address] VACCINE (1)] Future Scheduled 2003 COVID-19 VACCINE (1) [facility] Test 00:00:00 [code = COVID-[address] VACCINE (1)] Future Scheduled 1997 Imm Pneumococcal [facility] Test 00:00:00 0-64 (1 of 4 - PCV13) [code = Imm Pneumococcal 0-64 (1 of 4 - PCV13)] Future Scheduled 1997 Imm Pneumococcal [facility] Test 00:00:00 0-64 (1 of 4 - PCV13) [code = Imm Pneumococcal 0-64 (1 of 4 - PCV13)] Future Scheduled COVID-19 VACCINE (1) [facility] Test [code = COVID-19 Hospital VACCINE (1)] Future Scheduled Hepatitis C Tenriism Test screening Hospital (procedure) [code = 734923907] Future Scheduled Screening for Tenriism Test malignant neoplasm Hospital of cervix (procedure) [code = 655637084] Future Scheduled INFLUENZA VACCINE Method ist Test [code = INFLUENZA Hospital VACCINE] Future Scheduled [QLH] RENAL FUNCTION [facility] Test PANEL W/EGFR [code = 84Aik0239 [QL] RENAL FUNCTION PANEL W/EGFR] Encounters Start End Encounter Admission Attending Care Care Encounter Source Date/Time Date/Time Type Type Clinicians Facility Department ID 2022-03-27 Outpatient [facility] [id number] [place] 09:04:[id number] [place] [address] 2022-02-23 Outpatient JAZLYNDI, [facility] [id number] [place] 03:18:12 [facility] [id number] [place] [address] 2022-02-22 Outpatient FARMER, [facility] [id number] [place] 08:07:[id number] [place] [address] 2022-02-19 Outpatient JULIANA, [facility] [id number] [place] 14:26:[id number] [place] [address] 2021-12-19 Outpatient DEVIDI, [facility] [id number] [place] 12:32:01 [facility] 2021-08-22 Inpatient Tom, HCAPM ALFRED [id number] [facility] 11:00:00 Stan [id number] [facility] 2021-08-20 Inpatient Tom, HCAPM ALFRED [id number] [facility] 14:00:00 Stan 771997 [facility] 2021-08-11 Inpatient HCAPM RAMÓN [id number] [facility] 23:04:[id number] [place] [address] 2021-02-18 Inpatient EM Brady, HCAWU TELE [id number] [facility] 16:04:00 Nashaat [id number] [facility] 2021-02-17 Inpatient HCAWU RAMÓN [id number] [facility] 14:32:00 [id number] [facility] 2021-02-17 Inpatient HCABM RAMÓN [id number] [facility] 07:54:00 [id number] [facility] 2021-02-11 Inpatient EM Alec [facility] [id number] [facility] 01:07:00 [id number] [facility] are [facility] 2021-02-10 Inpatient [facility] [id number] H[facility] 18:50:00 [id number] [facility] are [facility] 2019-04-19 Inpatient [facility] [id number] H arris 12:24:09 Health 2019-04-18 Inpatient [facility] [id number] H arris 22:29:26 Health 2019-04-18 Inpatient [facility] [id number] H arris 12:24:43 Health 2018-10-12 Inpatient [facility] [id number] H arris 08:30:28 Health 2018-10-12 Inpatient [facility] [id number] H arris 00:00:00 [facility] 2018-10-07 Inpatient [facility] [id number] H arris 17:04:47 Health 2018-10-07 Inpatient [facility] [id number] H arris 13:46:15 Health 2022-06-13 2022-06-13 Outpatient EL SLEH [facility] [id number] [facility] 00:00:00 00:00:00 2022-06-13 2022-06-13 Outpatient EL SLEH SLEH [id number] [facility] 00:00:00 00:00:00 2022-06-13 2022-06-13 Outpatient EL ATTILA, SLEH SLEH [id number] [facility]H 00:00:00 00:00:00 GABRIELLA 2022-06-13 2022-06-13 Outpatient EL SLEH SLEH [id number] SLEH 00:00:00 00:00:00 2022-04-09 2022-04-10 Inpatient EL Yumiko, HCAPM INTE.02 [id number] [facility] 19:34:00 13:20:00 Nkoli 14 [facility] 2022-04-09 2022-04-10 Inpatient EL Yumiko, HCAPM INTE.02 [id number] [facility] 19:34:00 13:20:00 Nkoli [id number] [facility] 2022-02-22 2022-02-22 Office STEVE Farmer 6410 1.2.840.114 [id number] [place] 08:30:00 09:00:00 Visit Frank VERDUGO 350.1.13.58 [facility] [id number] [id number] 2022-02-07 2022-02-07 Outpatient JACEY, [facility] [id number] [place] 00:00:00 00:00:00 [facility] 2022-01-22 2022-01-23 Emergency EM Quezada, HCAPM RAMÓN [id number] [facility] 20:16:00 00:00:00 Linda [id number] [facility] 2022-01-22 2022-01-23 Emergency EM Quezada, HCAPM HCAPM [id number] [facility] 20:16:00 00:00:00 Linda 72 [facility] 2021-12-09 2021-12-09 Emergency EM Shivani, HCAPM RAMÓN [id number] [facility] 02:04:00 03:56:00 Shar [id number] [facility] 2021-12-09 2021-12-09 Emergency EM Shivani, HCAPM HCAPM [id number] [facility] 02:04:00 03:56:00 Shar 12 [facility] 2021-10-02 2021-10-02 Emergency EM Leal, HCAPM RAMÓN [id number] [facility] 19:31:00 21:28:00 Jerzy [id number] [facility] 2021-10-02 2021-10-02 Emergency EM Leal, HCAPM HCAPM [id number] [facility] 19:31:00 21:28:00 Jerzy 18 [facility] 2021-09-22 2021-09-22 Outpatient Iloanya, HCACL LABO [id number] [facility] 18:45:00 18:45:00 Eb [id number] [facility] 2021-09-22 2021-09-22 Inpatient EM Iloanya, HCAPM INTE.02 [id number] [facility] 06:26:00 16:46:00 Eb [id number] [facility] 2021-08-22 2021-08-22 Outpatient MAXX Tom, HCAPM DAYS [id number] [facility] 11:01:00 11:01:00 Stan Vance [facility] 2021-08-22 2021-08-22 [facility] [id number] 00:00:00 00:00:00 [facility] 2021-08-22 2021-08-22 [facility] [id number] 00:00:00 00:00:00 [facility] 2021-08-22 2021-08-22 [facility] [id number] 00:00:00 00:00:00 [facility] 2021-08-22 2021-08-22 Documentat Letty [facility] [id number] 00:00:00 00:00:00 [facility] 2021-08-17 2021-08-17 Gregory Guerra [facility] [id number] 00:00:00 00:00:00 [facility] 2021-08-15 2021-08-15 Telephone Clinton, STEVE 6410 1.2.840.114 [id number] [place] 00:00:00 00:00:[address] 350.1.13.58 Health 9.2.7.2.686 [id number] 2021-08-15 2021-08-15 Telephone Clinton, STEVE 6410 1.2.840.114 [id number] 00:00:00 00:00:[address] 350.1.13.58 9.2.7.2.686 [id number] 2021-08-11 2021-08-12 Emergency EM [facility], [facility] RAMÓN [id number] [facility] 23:04:00 03:54:00 Shar 81 [facility] 2021-07-26 2021-07-26 Tram Pavon [facility] [id number] 00:00:00 00:00:00 [facility] 2021-06-21 2021-06-21 Tram Pvaon [facility] [id number] 00:00:00 00:00:00 [facility] 2021-06-08 2021-06-08 Outpatient MAXX Tom, HCAPM DAYS [id number] [facility] 11:38:00 11:38:00 Stan [id number] [facility] 2021-05-24 2021-05-24 Emergency nullFlavo [facility] [id number] Memoria 16:27:42 20:01:00 r Juancho 19 [facility] 2021-05-24 2021-05-24 Emergency nullFlavo [facility] [id number] Memoria 12:04:07 15:31:00 r [place] 18 [facility] 2021-05-24 2021-05-24 Emergency E MARIANNE, [place] 7519 11:27:00 15:01:00 [facility] 2021-05-24 2021-05-24 Emergency E BILLIE, [facility] 07:04:00 10:31:00 DEON 2021-05-10 2021-05-11 Inpatient EM Sarah, HCAPM INTE.02 [id number] [facility] 21:04:00 11:36:00 Per [id number] [facility] 2021-05-11 2021-05-11 Outpatient GAUTAM HernandezCL LABO [id number] [facility] 00:44:00 00:44:00 Zacarias [id number] [facility] 2021-04-30 2021-04-30 STEVE Brian Neurology - 7 [id number] [place] 15:30:00 15:30:00 t; Victoriano HUNTER M.D. Medical ans Tresa HUNTER M.D. 2021-04-28 2021-04-29 Observatio nullFlavo [facility] [id number] Memoria 05:23:14 20:31:00 n tee Dawkins 16 [facility] 2021-04-28 2021-04-29 Outpatient VAL[facility] DAY MED [id number] BL 05:15:00 15:31:00 TOMAS 2021-04-28 2021-04-28 EXT [facility] OP Roque, KRISSY MSRDP 1.2.840.114 [id number] [place] 00:00:00 00:00:00 Tomas LOCATION 350.1.13.58 H ealth 9.2.7.2.686 [id number] 2021-04-28 2021-04-28 EXT MH OP Roque, EXT MSRDP 1.2.840.114 [id number] [place] 00:00:00 00:00:00 Tomas LOCATION 350.1.13.58 H ealth 9.2.7.2.686 [id number] 2021-04-27 2021-04-27 Telephone Maria Isabel, 1.2.840.1 [id number] Method 00:00:00 00:00:[address] 3.430.2.7 Hospit a .3.841109 l .8 2021-03-31 2021-04-07 Inpatient nullFlavo [facility] [id number] Memoria 07:16:59 22:20:00 tee Dawkins 15 [facility] 2021-03-31 2021-04-07 Inpatient E DARIEL [facility] MED [id number] [facility] 04:34:00 17:20:00 [facility] 2021-03-30 2021-03-30 Emergency nullFlavo [facility] [id number] Memoria 12:57:41 18:20:00 tee Stoner [facility] 2021-03-30 2021-03-[address] [facility] 07:57:00 13:20:00 MARJAN 2021-03-22 2021-03-22 Outpatient GC_NIMD_Ibr PRIV PRIV [id number] [facility] 12:23:00 12:23:00 aheim_N [id number] Medica l 2021-03-12 2021-03-15 Inpatient nullFlavo [facility] [id number] Memoria 01:20:22 00:45:00 tee Ovalle [facility] 2021-03-11 2021-03-14 Inpatient E MAVIS [facility] MED [id number] BL 23:31:00 19:45:00 VIV 2021-03-12 2021-03-12 EXT [facility] OP EXT MSRDP 1.2.840.114 1 [id number] [place] 00:00:00 00:00:00 LOCATION 350.1.13.58 H ealth 9.2.7.2.686 [id number] 2021-03-12 2021-03-12 EXT MHH OP EXT MSRDP 1.2.840.114 1 [id number] UT 00:00:00 00:00:00 LOCATION 350.1.13.58 H ealth 9.2.7.2.686 [id number] 2021-03-09 2021-03-09 Appointmen STEVE AVILEZ [id number] UT 15:30:00 15:30:00 t; OWEN AVILEZ, Ph ici Imelda WEAVER M.D. 2021-02-27 2021-02-27 Outpatient GC_NIMD_Ibr PRIV PRIV [id number] [facility] 03:56:00 03:56:00 eim_N [id number] Medica l 2021-02-11 2021-02-11 Outpatient Alec Perry [facility] REF BP1 [id number] [facility] 06:18:00 06:18:00 [id number] [facility] on [facility] are [facility] 2021-02-07 2021-02-10 [facility] [id number] Memoria 21:39:00 18:00:00 r Juancho 12 l [facility] 2021-02-07 2021-02-10 Inpatient E VALERIE DRAKE MED 7512 MHBL 20:07:00 13:00:00 NITA 2021-02-08 2021-02-08 EXT MHH OP Kingsley, EXT MSRDP 1.2.840.114 1 [id number] UT 00:00:00 00:00:00 Fadi LOCATION 350.1.13.58 H ealth Derik 9.2.7.2.686 [id number] 2021-02-08 2021-02-08 EXT MHH OP Kingsley, EXT MSRDP 1.2.840.114 1 [id number] UT 00:00:00 00:00:00 Fadi LOCATION 350.1.13.58 H ealth Derik 9.2.7.2.686 [id number] 2021-02-05 2021-02-05 Infusion Flora, [facility] [id number] 08:27:51 14:37:42 [facility] 2021-02-05 2021-02-[address] [facility] [id number] [facility] 00:00:00 00:00:00 2021-02-02 2021-02-02 Infusion Flora [facility] [id number] 10:20:26 16:05:51 [facility] 2021-02-02 2021-02-02 Outpatient EL SLE SLE [id number] [facility]H 00:00:00 00:00:00 2021-01-18 2021-01-18 Emergency [facility] [id number] Memoria 16:45:26 21:11:00 tee Dawkins 11 l [facility] 2021-01-18 2021-01-18 Emergency E KINGSLEY [facility] 7511 [facility] 10:45:00 15:11:00 MONIE 2021-01-18 2021-01-18 Appointmen RAGHAV [facility] [id number] UT 13:30:00 13:30:00 t; OWEN AVILEZ, Ph ici Ramona WEAVER. ans M.Taz 2021-01-12 2021-01-12 Observatio [facility] [id number] Memoria 00:55:04 22:43:00 n tee Dawkins 10 [facility] 2021-01-11 2021-01-12 Outpatient E LISA [facility] MED [id number] MHBL 21:16:00 16:43:00 MERLY 2021-01-12 2021-01-12 Ross Horowitz [facility] [id number] 00:00[facility]00 00:00[facility]00 [facility] 2021-01-11 2021-01-11 [facility] Attila [facility] [id number] 10:01:22 23:59:00 Beatris Braden [facility] 2021-01-11 2021-01-11 Evaluation Gabriella Singh [facility] [id number] 11:34:11 13:04:11 Sanchez, Reina [facility] 2021-01-11 2021-01-11 Evaluation Gabriella Singh [facility] [id number] 11:34:05 12:04:05 Deborah Brambila [facility] 2021-01-11 2021-01-11 Orders MAXX Singh, [facility] [id number] 11:33:51 11:48:51 Only [facility] 2021-01-11 2021-01-11 [facility] [id number] 10:00:59 10:00:59 [facility]counter [facility] 2021-01-11 2021-01-11 Outpatient SLE SLE [id number] SLEH 00:00:00 00:00:00 2021-01-11 2021-01-11 Outpatient SLE SLEH [id number] [facility] 00:00:00 00:00:00 2021-01-11 2021-01-11 Outpatient SLE SLEH [id number] [facility]H 00:00:00 00:00:00 2021-01-11 2021-01-11 Outpatient ATTILA [facility] SLE [id number] SLE 00:00:00 00:00:00 [facility] 2021-01-11 2021-01-11 Outpatient ATTILA SLE SLE [id number] SLEH 00:00:00 00:00:00 [facility] 2021-01-11 2021-01-11 Abstract Melissa [facility] [id number] 00:00:00 00:00:00 [facility] 2020-12-12 2020-12-12 Tram Pavon [facility] [id number] 00:00:00 00:00:[address] [facility] 2020-11-30 2020-11-30 Outpatient SLE SLE [id number] SLE 00:00:00 00:00:00 2020-11-30 2020-11-30 Outpatient SLE SLE [id number] SLE 00:00:00 00:00:00 2020-11-30 2020-11-30 Outpatient TIMMINS, SLE SLE [id number] SLE 00:00:00 00:00:00 GABRIELLA 2020-11-30 2020-11-30 Outpatient EL TIMMINS, SLE SLE [id number] SLE 00:00:00 00:00:00 GABRIELLA 2020-11-30 2020-11-30 Outpatient SLE SLE [id number] SLE 00:00:00 00:00:00 2020-11-29 2020-11-29 Telephone Ana Lilia Sam [facility] [id number] 00:00:00 00:00:00 [facility] 2020-11-20 2020-11-20 Emergency [facility] [id number] [facility] 00:54:25 07:52:[address] 2020-11-19 2020-11-20 Emergency E LEONARD, [facility] [id number] [facility] 18:54:00 01:52:00 [facility] 2020-11-07 2020-11-07 Telephone Calixtoanirudhgenetmariely, [facility] [id number] 00:00:00 00:00:00 Shilpi Bear [facility] 2020-10-24 2020-10-24 Abstract Mari [facility] [id number] 00:00:00 00:00:00 [facility] 2020-10-20 2020-10-20 Document Carlos Manuel [facility] [id number] 00:00:00 00:00:00 [facility] 2020-10-17 2020-10-17 Ross Horowitz [facility] [id number] 00:00:00 00:00:00 [facility] 2020-10-13 2020-10-13 Antonella AVILEZ, [facility] Rheumatolog [id number] [place] 15:00:00 15:00:00 t; OWEN AVILEZ, y Ph Imelda Carcamo M.D. 2020-10-04 2020-10-04 Documentat Horowitz, [facility] [id number] 00:00:00 00:00:00 [facility] 2020-10-03 2020-10-03 Documentat Horowitz, [facility] [id number] 00:00:00 00:00:00 [facility] 2020-10-03 2020-10-03 Telephone Horowitz, [facility] [id number] 00:00:00 00:00:00 [facility] 2020-10-03 2020-10-03 [facility]at [facility] [id number] 00:00:00 00:00:00 [facility] 2020-10-03 2020-10-03 [id number] 00:00:00 00:00:00 [facility] 2020-10-03 2020-10-03 [facility] [id number] 00:00:00 00:00:00 [facility] 2020-09-29 2020-09-29 Documentat [facility] [id number] 00:00:00 00:00:00 [facility] 2020-09-29 2020-09-29 Abstract Horowitz, [facility] [id number] 00:00:00 00:00:00 [facility] 2020-09-27 2020-09-27 [facility] [id number] [facility] 17:17:01 18:47:00 tee Dawkins 08 l [facility] 2020-09-27 2020-09-27 Emergency E RAYO, MHBL BL 7508 MHBL 11:17:00 12:47:00 MONY 2020-09-05 2020-09-05 Office [facility], 1.2.840.1 [id number] Methodi 14:21:01 15:13:04 Visit Bryon Zhao 82164.1.1 236 s t 3.430.2.7 Hospit a .3.904063 l .8 2020-08-28 2020-08-28 Travel 1.2.840.1 1.2.114.562 [id number] Methodi 00:00:00 00:00:[address] 3.430.2.7 0.2.7.3.698 Ho spita .3.910751 084.8 l .8 2020-08-25 2020-08-25 Telephone Gigi, 1.2.840.1 [id number] 21 [id number] Methodi 00:00:00 00:00:[address] 3.430.2.7 Hospit a .3.676712 l .8 2020-08-22 2020-08-22 Hospital [facility], 1.2.840.1 [id number] Methodi 06:49:00 15:50:00 Encounter Bryon Zhao 20059.1.[address] 3.430.2.7 Hospit a .3.340376 l .8 2020-08-22 2020-08-22 Surgery [facility], 1.2.840.1 [id number] Methodi 09:00:00 12:30:00 Bryon Zhao 85153.1.1 794 s t 3.430.2.7 Hospit a .3.778934 l .8 2020-08-22 2020-08-22 Anesthesia Ele Dsouza A. 1.2.840.1 10 [id number] Methodi 09:18:00 12:29:00 Event Iraida Foster 84339.1.[address] 3.430.2.7 Hospit a .3.128944 l .8 2020-08-10 2020-08-10 Antonella SCHWARZ [facility] [id number] [place] 12:45:00 12:45:00 t; Imelda VALLE ans JOHN, M.D. 2020-08-05 2020-08-05 Emergency [facility]Flavo [facility] [id number] Memoria 03:25:02 08:05:00 r Juancho 07 [facility] 2020-08-04 2020-08-05 Emergency E LEONARD SANCHES BL MHBL 7507 MHBL 22:25:00 03:05:00 2020-07-23 2020-07-23 Emergency nullFlavo [facility] [id number] Memoria 19:33:23 21:44:00 r Juancho 06 [facility] 2020-07-23 2020-07-23 Emergency E ZANA VERA BL MHBL 7506 MHBL 14:33:00 16:44:00 2020-07-14 2020-07-14 AppointSTEVE Campbell Rheumatolog [id number] [place] 15:30:00 15:30:00 t; OWEN AVILEZ, y Ph Imelda Carcamo M.D. 2020-06-05 2020-06-06 Emergency E SATISH, BL BL 7505 BL 22:03:00 05:04:00 CARMEN 2020-05-30 2020-05-30 Observatio [facility]Flavo [facility] [id number] Memoria 01:32:59 22:24:00 n r Juancho 04 [facility] 2020-05-30 2020-05-30 Outpatient E MOVVA, BL MED 7504 MHBL 00:54:00 17:24:00 RODOLFO 2020-04-20 2020-04-20 Appointmen STEVE AVILEZ Rheumatolog [id number] [id number] UT 12:00:00 12:00:00 t; OWEN AVILEZ, jorge Ph Imelda Carcamo M.D. 2020-04-10 2020-04-13 Inpatient [facility]Fl[facility] [id number] Memoria 10:31:38 21:45:00 r Juancho 03 [facility] 2020-03-19 2020-03-23 Inpatient [facility]Flavo [facility] [id number] Memoria 00:43:50 18:45:00 r Juancho 02 [facility] 2020-02-24 2020-02-24 AppointSTEVE Campbell Rheumatolog [id number] [id number] UT 11:00:00 11:00:00 t; OWEN AVILEZ, y Ph Imelda Carcamo M.D. 2020-02-18 2020-02-18 STEVE Calero UTP [id number] UT 15:30:00 15:30:00 t; OWEN AVILEZ, Imelda Durand M.D. 2020-01-26 2020-01-27 Inpatient [facility] [id number] Memoria 02:40:21 21:40:00 r [place] 01 [facility] 2020-01-14 2020-01-14 AppointSTEVE Campbell Rheumatolog [id number] UT 14:30:00 14:30:00 t; OWEN AVILEZ, Imelda Feldman M.D. 2020-01-03 2020-01-07 Inpatient [facility] [id number] Memoria 18:39:12 23:25:00 r [place] 00 [facility] 2019-10-26 2019-10-29 Inpatient nullFlavo [facility] [id number] Memoria 01:22:06 23:15:00 r Juancho 03 [facility] 2019-10-26 2019-10-25 Inpatient E MHBL MED 7503 MHBL 00:00:00 19:22:00 2019-10-21 2019-10-21 Emergency nullFlavo [facility] [id number] Memoria 15:22:51 18:39:00 r Juancho 02 [facility] 2019-10-21 2019-10-21 Emergency E MHBL MHBL 7502 MHBL 09:22:00 09:22:00 2019-10-11 2019-10-11 Appointmen STEVE CAPONE Renal [id number] [place] 09:00:00 09:00:00 t; Imelda [facility] P hysici Sathish CAPONE M.D. [facility] 2019-10-06 2019-10-06 Emergency nullFlavo [facility] [id number] Memoria 01:49:29 05:42:00 r Juancho 01 [facility] 2019-10-05 2019-10-05 Emergency E MHBL MHBL 7501 MHBL 19:49:00 19:49:00 2019-10-01 2019-10-01 Appointmen STEVE RICE Obstetrics [id number] [id number] [place] 14:30:00 14:30:00 t; RODGER RICE and Phys ici MERLYN, M.D. [facility]necology [facility] 2019-09-30 2019-09-30 Appointmen STEVE AVILEZ Rheumatolog [id number] 30339 [place] 13:00:00 13:00:00 t; OWEN AVILEZ, y Imelda Carcamo M.D. 2019-09-03 2019-09-03 Appointmen STEVE WOO Obstetrics 5784 [id number] UT 15:30:00 15:30:00 t; PEYMAN WOO and Phys ici KANDACE, M.D. Gynecology reagan [facility] 2019-08-20 2019-08-20 Appointmen STEVE WOO Obstetrics [id number] [id number] UT 15:00:00 15:00:00 t; PEYMAN WOO and Phys ici KANDACE, M.D. Gynecology ans [facility] 2019-08-16 2019-08-16 Outpatient [facility] [id number] [place] 00:00:00 00:00:00 Health 2019-07-08 2019-07-08 Outpatient [facility] [id number] [place] 00:00:00 00:00:00 Health 2019-05-21 2019-05-21 Outpatient [facility] [id number] [place] 00:00:00 00:00:00 Health 2019-05-20 2019-05-20 Outpatient [facility] [id number] [place] 00:00:00 00:00:00 Health 2019-05-11 2019-05-11 Outpatient [facility] [id number] [place] 09:18:03 09:18:03 Health 2019-05-11 2019-05-11 Outpatient [facility] [id number] [place] 00:00:00 00:00:00 Health 2019-05-11 2019-05-11 Outpatient [facility] [id number] [place] 00:00:00 00:00:00 Health 2019-05-10 2019-05-10 Outpatient [facility] [id number] [place] 00:00:00 00:00:00 Health 2019-04-27 2019-04-27 Outpatient [facility] [id number] [place] 00:00:00 00:00:00 [facility] 2019-04-26 2019-04-26 Outpatient [facility] [id number] [place] 15:09:59 15:09:59 [facility] 2019-04-26 2019-04-26 Outpatient [facility] [id number] [place] 14:08:46 14:08:46 [facility] 2019-04-26 2019-04-26 Outpatient [facility] [id number] [place] 00:00:00 00:00:00 [facility] 2019-04-26 2019-04-26 Outpatient [facility] [id number] [place] 00:00:00 00:00:00 [facility] 2019-04-22 2019-04-22 Outpatient [facility] [id number] [place] 00:00:00 00:00:00 [facility] 2019-04-12 2019-04-12 Outpatient [facility] [id number] [place] 16:29:26 16:29:26 [facility] 2019-04-11 2019-04-11 Outpatient [facility] [id number] [place] 20:18:42 20:18:42 [facility] 2019-04-11 2019-04-11 Emergency [facility] [id number] [place] 16:01:44 16:01:44 [facility] 2019-04-11 2019-04-11 Inpatient [facility] [id number] [place] 13:38:23 13:38:23 [facility] 2019-04-09 2019-04-09 Emergency [facility] [id number] [place] 18:09:00 18:09:00 [facility] 2019-04-09 2019-04-09 [facility] [facility] [id number] Law 13:59:03 13:59:03 [facility] 2019-03-18 2019-03-18 Outpatient [facility] [id number] Law 00:00:00 00:00:00 [facility] 2019-03-02 2019-03-02 Outpatient [facility] [id number] Law 00:00:00 00:00:00 [facility] 2019-02-26 2019-02-26 Outpatient [facility] [id number] Law 15:32:22 15:32:22 [facility] 2019-02-26 2019-02-26 Outpatient [facility] [id number] Law 14:25:44 14:25:44 [facility] 2019-02-12 2019-02-12 Outpatient [facility] [id number] Law 00:00:00 00:00:00 [facility] 2019-01-29 2019-01-29 Outpatient [facility] [id number] Law 00:00:00 00:00:00 [facility] 2019-01-27 2019-01-27 Outpatient [facility] [id number] Law 00:00:00 00:00:00 [facility] 2019-01-26 2019-01-26 Outpatient [facility] [id number] Law 14:38:13 14:38:13 [facility] 2019-01-20 2019-01-20 Outpatient [facility] [id number] Law 10:03:13 10:03:13 [facility] 2019-01-15 2019-01-15 Outpatient [facility] [id number] Law 15:07:15 15:07:15 [facility] 2019-01-15 2019-01-15 Outpatient [facility] [id number] Law 15:03:03 15:03:03 [facility] 2019-01-13 2019-01-13 Outpatient [facility] [id number] Law 10:18:33 10:18:33 [facility] 2019-01-13 2019-01-13 Outpatient [facility] [id number] Law 00:00:00 00:00:00 [facility] 2019-01-08 2019-01-08 Outpatient [facility] [id number] [place] 11:45:18 11:45:18 [facility] 2018-11-20 2018-11-20 Outpatient [facility] [id number] Law 00:00:00 00:00:00 [facility] 2018-11-19 2018-11-19 Outpatient [facility] [id number] Law 00:00:00 00:00:00 [facility] 2018-11-11 2018-11-11 Outpatient [facility] [id number] Law 13:38:54 13:38:54 [facility] 2018-11-09 2018-11-09 Outpatient [facility] [id number] [address] [place] 12:31:06 12:31:06 [facility] 2018-11-06 2018-11-06 Outpatient [facility] [id number] Law 14:31:04 14:31:04 [facility] 2018-10-28 2018-10-28 Outpatient [facility] [id number] Law 00:00:00 00:00:00 [facility] 2018-10-28 2018-10-28 Outpatient [facility] [id number] Law 00:00:00 00:00:00 [facility] 2018-10-05 2018-10-05 Outpatient [facility] [id number] Law 12:35:03 12:35:03 [facility] 2018-10-05 2018-10-05 Outpatient [facility] [id number] Law 00:22:56 00:22:56 [facility] 2018-10-05 2018-10-05 Outpatient [facility] [id number] [place] 00:00:00 00:00:00 Health 2018-10-03 2018-10-03 Emergency [facility] [id number] [place] 23:04:16 23:04:16 Health 2018-10-03 2018-10-03 Emergency [facility] [id number] [place] 17:16:07 17:16:07 Health 2018-10-03 2018-10-03 Outpatient [facility] [id number] [place] 14:35:08 14:35:08 Health 2018-10-03 2018-10-03 Emergency [facility] [id number] [place] 00:00:00 00:00:00 [facility] 2018-10-03 2018-10-03 Emergency [facility] [id number] [place] 00:00:00 00:00:00 [facility] 2018-08-24 2018-08-24 Emergency [facility] [id number] [place] 19:54:00 19:54:00 [facility] 2018-07-20 2018-07-20 Emergency [facility] [id number] [place] 15:37:00 19:37:[address] 2018-07-14 2018-07-16 Inpatient [facility] [id number] [place] 14:14:00 19:16:[address] Results Test Description Test Time Test Comments Results Result Comments Source AB HEPATITIS B SURFACE 2022-04-11 09:15:00 Test Item Value Reference Range Interpretation Comme nts AB HEPATITIS B 543.8 mIU/mL See_Comment Status of Im munity Anti-HBs Level SURFACE (test code = ------- HBSAB) I nconsistent with Immunity 0.0 - 9.9Consistent with Immunity >9.9 [ Automated message] The system which ge nerated this result transmitted ref erence range: Immunity>9.9. T he reference range was not used to int erpret this result as normal/abnormal . AG HEPATITIS B [id number] 09:15:00 Test Item Value Reference Range Interpretation Comments AG HEPATITIS B SURFACE NON REACTIVE INDEX NonReactive (test code = HBSAG) AB HEPATITIS B [id number] 09:15:00 Test Item Value Reference Range Interpretation Comments AB HEPATITIS B CORE Negative Negative Performe d At: HD (test code = HBCAB) [facility] [id number] [place], [place] [id number] lima Bear MD Ph:[phone] COMPREHENSIVE METABOLIC [id number] 09:40:00 Test Item Value Reference Range Interpretation Comments SODIUM (test code = NA) 136 mmol/L 134-147 N POTASSIUM (test code = K) 5.0 mmol/L 3.4-5.0 N CHLORIDE (test code = CL) 101 mmol/L 100-108 N CARBON DIOXIDE (test code = 25 mmol/L 21-32 N CO2) ANION GAP (test code = GAP) 10.0 GAP calc 4.0-15.0 N GLUCOSE (test code = GLU) 90 MG/DL 70-110 N BLOOD UREA NITROGEN (test code 50 MG/DL 7-18 H = BUN) GLOMERULAR FILTRATION RATE 5 estGFR >60 L (test code = GFR) CREATININE (test code = CREAT) 11.2 MG/DL 0.6-1.0 H TOTAL PROTEIN (test code = 8.0 G/DL 6.4-8.2 N PROT) ALBUMIN (test code = ALB) 3.2 G/DL 3.4-5.0 L GLOBULIN (test code = GLOB) 4.8 GM/dL ALBUMIN/GLOBULIN RATIO (test 0.7 RATIO 1.2-2.2 L code = A/G) CALCIUM (test code = CA) 8.8 MG/DL 8.5-10.1 N BILIRUBIN TOTAL (test code = 0.30 MG/DL 0.2-1.2 N BILT) SGOT/AST (test code = AST) 14 Unit/L 15-37 L SGPT/ALT (test code = ALT) 12 Unit/L 12-78 N ALKALINE PHOSPHATASE TOTAL 183 Unit/L 45-117 H (test code = ALKP) AG HEPATITIS B [id number] 03:40:00 Test Item Value Reference Range Interpretation Comments AG HEPATITIS B SURFACE NON REACTIVE INDEX NonReactive (test code = HBSAG) COVID 19 Asymptomatic IH [id number] 20:28:00 Test Item Value Reference Range Interpretation Comments COVID 19 Asymptomatic NEGATIVE Negative Per ma nufacturer, IH AG (test code = negative results should COVNONPUIAG) be treated aspresumptive a nd, if inconsistent wi th clinical signs andsymptoms or necessary for p atient management, claude uld betested with a n alternative mol ecular assay. Negative resultsdo not p reclude SARS-CoV-2 infe ction and should not be usedas the sole basis for patient man agement decisions. Nega tive results should be considered in t he context of apat ient's recent exposure s, history, presen ce of clinicalsigns a nd symptoms consis tent with COVID-19. CBC W/AUTO [id number] 19:25:00 Test Item Value Reference Range Interpretation Comments WHITE BLOOD CELL (test code = 5.5 K/mm3 3.5-11.0 N WBC) RED BLOOD CELL (test code = 4.22 M/mm3 4.70-6.10 L RBC) HEMOGLOBIN (test code = HGB) 11.6 G/DL 10.4-14.9 N HEMATOCRIT (test code = HCT) 37.5 % 31.5-44.1 N MEAN CELL VOLUME (test code = 88.9 Fl 84.5-98.6 N MCV) MEAN CELL HGB (test code = MCH) 27.5 pg 27.0-34.2 N MEAN CELL HGB CONCETRATION 30.9 G/DL 31.5-34.0 L (test code = MCHC) RED CELL DISTRIBUTION WIDTH 15.9 SD 11.5-14.5 H (test code = RDW) PLATELET COUNT (test code = 162 K/mm3 150-450 N PLT) MEAN PLATELET VOLUME (test code 9.70 fL 7.0-10.5 N = MPV) NEUTROPHIL % (test code = NT%) 39.9 % 40-76 L IMMATURE GRANULOCYTE % (test 0.2 % 0.0-5.0 N code = IG%) LYMPHOCYTE % (test code = LY%) 46.2 % 20.5-51.1 N MONOCYTE % (test code = MO%) 9.3 % 1.7-9.3 N EOSINOPHIL % (test code = EO%) 4.0 % 0.0-6.0 N BASOPHIL % (test code = BA%) 0.4 % 0.0-2.0 N NUCLEATED RBC % (test code = 0.0 /100WBC% 0.0-1.0 N NRBC%) NEUTROPHIL # (test code = NT#) 2.2 K/mm3 1.8-7.6 N IMMATURE GRANULOCYTE # (test 0.01 x10 3/uL 0.00-0.03 N code = IG#) LYMPHOCYTE # (test code = LY#) 2.5 K/mm3 0.6-3.2 N MONOCYTE # (test code = MO#) 0.5 K/mm3 0.3-1.1 N EOSINOPHIL # (test code = EO#) 0.2 K/mm3 0.0-0.4 N BASOPHIL # (test code = BA#) 0.0 K/mm3 0.0-0.1 N NUCLEATED RBC # (test code = 0.0 K/mm3 0.0-0.1 N NRBC#) MANUAL DIFF REQUIRED (test code NO DIFF/SCN CRITERIA = MDIFF) BASIC METABOLIC [id number] 19:15:00 Test Item Value Reference Range Interpretation Comments SODIUM (test code = NA) 137 mmol/L 134-147 N POTASSIUM (test code = K) 7.1 mmol/L 3.4-5.0 HH CHLORIDE (test code = CL) 102 mmol/L 100-108 N CARBON DIOXIDE (test code = CO2) 26 mmol/L 21-32 N ANION GAP (test code = GAP) 9.0 GAP calc 4.0-15.0 N GLUCOSE (test code = GLU) 99 MG/DL 70-110 N BLOOD UREA NITROGEN (test code = 75 MG/DL 7-18 H BUN) GLOMERULAR FILTRATION RATE (test 4 estGFR >60 L code = GFR) CREATININE (test code = CREAT) 13.8 MG/DL 0.6-1.0 H CALCIUM (test code = CA) 8.7 MG/DL 8.5-10.1 N Completed by Nursing: NOTROP-I HIGH [id number] 19:15:00 Test Item Value Reference Range Interpretation Comments TROP-I HIGH 8.2 ng/L 0-34 N CAUTION: Units of the SENSITIVITY (test current te st methodology code = TROPIHS) (ng/L) diffe rfrom the prior test meth odology (ng/mL) by a fa ctor of 1000. 99t h Percentile Uppe r Reference Limit (URL):Fem ales: 34 ng/LMales: 54 n g/L In order to distin guish acute elevations of h igh sensitivitytrop onin from other clinical conditions, the FourthUnive rsal Definition of M yocardial Infarction stressesclinica l assessment and the demonstration o f a rise and/orfall in s erial troponin result s above the URL. Results fr om different metho dologies should not be c omparedto one another as quantitative re sults and URLs may varyby method. Completed by Nursing: [facility] [id number] 19:13:00 Test Item Value Reference Range Interpretation Comments HCG SERUM (test < 1 mi-IU/ML 0-6 N 0 - 6 NOT P REGNANT > 6 code = HCG) SUGGESTIVE OF E KEDAR RISES TWO FOLD EVERY 2 DAYS; S UGGEST RECONFIRMING AF TER 2 DAYS. 150,000-2 00[address] TRIMESTER 10 ,000 - 50,000 2ND & 3R D TRIMESTER - XR CHEST 2 [id number] 18:27:00 [facility] 1990 Sex: F Name: CHRISTINA KEBEDE [facility] : 1990 Age/S: 31 / F [address] [facility] Unit #: [id number] Loc: [place] [address] Phys: Linda Quezada DO Acct: [id number] Dis Date: Status: REG ER PHONE #: [phone] Exam Date: 04/09/20221814 FAX #: Reason: sob EXAMS: CPT: [id number] XR CHEST 2 V 68562 Fluoro Time: DAP (Gy m2): Air Kerma (mGy): STUDY: - XR CHEST 2 V CLINICAL HISTORY: Shortness of breath COMPARISON: Chest x-ray performed January 22, 2022 LOCATION: C3 FINDINGS: PA and lateral views of the chest are submitted for evaluation. The lungs are clear The cardiac silhouette, mediastinum andpulmonary vasculature are unremarkable. The regional osseous structures are intact IMPRESSION: No acute radiographic abnormality. at 1827 Reported and signed by: Nena Blakely M.D. CC: Kinjal JOHNSON; Noah Knott MD; Linda Quezada DO PAGE 1 Signed Report Name: CHRISTINA KEBEDE [facility] : 1990 Age/S: 31 / F [address] [address] Unit #: [id number] Loc: [place] [address] Phys: Linda Quezada DO Acct: [id number] Date: Status: REG ER PHONE #: [phone] Exam Date: 04/09/20221814 FAX #: Reason: sob EXAMS: CPT: [id number] XR CHEST 2 V 07419 Fluoro Time: DAP (Gy m2): Air Kerma (mGy): <Continued> Technologist: Shan Miranda, RT(R) Trnscb Date/Time: 04/09/2022 (1826) [email or web address] Orig Print D/T: S: 04/09/2022 (183) PAGE 2 Signed ReportSTREPTOCOCCUS PCR SCREEN 2022-01-23 04:21:00 Test Item Value Reference Range Interpretation Comments STREPA MOLECULAR (test NEGATIVE FOR GRP A NEGATIVE code = STREPAMOL) - CT HEAD/BRAIN W/O [id number] 22:23:00 [facility] : 1990 Sex: F Name: CHRISTINA KEBEDE [facility] : 1990 Age/S: 31 / F [address] [address] Unit #: [id number] Loc: [place] [address] Phys: Linda Quezada DO Acct: [id number] Dis Date: Status: REG ER PHONE #: [phone] Exam Date: 01/22/20222214 FAX #: Reason: dizziness EXAMS: CPT: [id number] CT HEAD/BRAIN W/O CONT 55034 AFTER HOURS SERVICE ON: 01/22/2022 10:[address] Scan of the Brain Without Contrast Location Code M12 History: dizziness Technique: Scans were performed on a helical scanner pre IV contrast only. The study is limited secondary to lack of intravenous contrast, particularly for evaluation of masses. One or more of the following dose reduction techniques were used: Automated exposure control, adjustment of the mA and/or kV according to patient size, and/or utilization of iterative reconstruction technique. Findings: There is no hydrocephalus. Basal cisterns are patent. There is no intracranial hyperdense hemorrhage. There is no midline shift or mass effect. No effacement of the pinto-white matter junction to indicate acute infarction. There is no skull fracture. Impression: No acute intracranial CT findings. at 2223 Reported and signed by: Guillermo Chaparro M.D. CC: Noah Knott MD; Linda Quezada DO; Bethany JOHNSON Technologist:Christine Silva, RT(R)(CT) CTDI: DLP: Trnscb Date/Time: 01/22/2022 (2223) [email or web address] Orig Print D/T: S: 01/22/2022 (6903) PAGE 1 Signed ReportCREATINE KINASE (CK)2022-01-22 21:27:00 Test Item Value Reference Range Interpretation Comments CREATINE KINASE (CK) (test code = 84 Unit/L 26-192 N CK) Completed by Nursing: NOTROP-I HIGH [id number] 21:27:00 Test Item Value Reference Range Interpretation Comments TROP-I HIGH 10.2 ng/L 0-34 N CAUTION: Units of the SENSITIVITY (test current te st methodology code = TROPIHS) (ng/L) diffe rfrom the prior test meth odology (ng/mL) by a fa ctor of 1000. 99t h Percentile Uppe r Reference Limit (URL):Fem ales: 34 ng/LMales: 54 n g/L In order to distin guish acute elevations of h igh sensitivitytrop onin from other clinical conditions, the FourthUnive rsal Definition of M yocardial Infarction stressesclinica l assessment and the demonstration o f a rise and/orfall in s erial troponin result s above the URL. Results fr om different metho dologies should not be c omparedto one another as quantitative re sults and URLs may varyby method. Completed by Nursing: NOCOMPREHENSIVE METABOLIC [id number] 21:27:00 Test Item Value Reference Range Interpretation Comments SODIUM (test code = NA) 135 mmol/L 134-147 N POTASSIUM (test code = K) 3.7 mmol/L 3.4-5.0 N CHLORIDE (test code = CL) 96 mmol/L 100-108 L CARBON DIOXIDE (test code = 29 mmol/L 21-32 N CO2) ANION GAP (test code = GAP) 10.0 GAP calc 4.0-15.0 N GLUCOSE (test code = GLU) 87 MG/DL 70-110 N BLOOD UREA NITROGEN (test code 30 MG/DL 7-18 H = BUN) GLOMERULAR FILTRATION RATE 11 estGFR >60 L (test code = GFR) CREATININE (test code = CREAT) 6.0 MG/DL 0.6-1.0 H TOTAL PROTEIN (test code = 9.3 G/DL 6.4-8.2 H PROT) ALBUMIN (test code = ALB) 3.7 G/DL 3.4-5.0 N GLOBULIN (test code = GLOB) 5.6 GM/dL ALBUMIN/GLOBULIN RATIO (test 0.7 RATIO 1.2-2.2 L code = A/G) CALCIUM (test code = CA) 9.4 MG/DL 8.5-10.1 N BILIRUBIN TOTAL (test code = 0.30 MG/DL 0.2-1.2 N BILT) SGOT/AST (test code = AST) 20 Unit/L 15-37 N SGPT/ALT (test code = ALT) 14 Unit/L 12-78 N ALKALINE PHOSPHATASE TOTAL 175 Unit/L 45-117 H (test code = ALKP) Completed by Nursing: NO- XR CHEST 2 [id number] 21:03:00 [facility] : 1990 Sex: F Name: CHRISTINA KEBEDE [facility] : 1990 Age/S: 31 / F [address] [address] Unit #: [id number]: [place] [address] Phys: Arnoldo Vergara DO Acct: [id number] Dis Date: Status: PRE ER PHONE #: [phone] Exam Date: 01/22/20222058 FAX #: Reason: dizziness EXAMS: CPT: [id number] XR CHEST 2 V 710 46 Fluoro Time: DAP (Gy m2): Air Kerma (mGy): EXAM: CHEST 2 VIEWS INDICATION: DIZZINESS LOCATION: B2 COMPARISON: October 02, 2021 TECHNIQUE: PA and lateral views of the chest. FINDINGS: The heart size is normal. The lungs are clear bilaterally. The pulmonary vasculature is normal. No pneumothorax orpleural effusion is identified. The osseous structures are normal. IMPRESSION: No acute cardiopulmonary process. at 2103 Reported and signed by: Tasha Chne M.D. CC: Noah Knott MD; Linda Quezada DO; Bethany JOHNSON; Arnoldo Vergara DO PAGE 1 Signed Report Name: CHRISTINA KEBEDE : 1990 Age/S: 31 / F [address] [address] Unit #: [id number] Loc: [place] [address] Phys: Arnoldo Vergara DO Acct: [id number] Dis Date: Status: PRE ER PHONE #: [phone] Exam Date: 01/22/20222058 FAX #: Reason: dizziness EXAMS: CPT: [id number] XR CHEST 2 V 30012 Fluoro Time: DAP (Gy m2): Air Kerma (mGy): <Continued>Technologist: Rowan Trevizo RT(R)(CT) Trnscb Date/Time: 01/22/2022 (2102) [id number] Orig Print D/T: S: 01/22/2022 (2105) PAGE 2 Signed ReportCBC W/AUTO [id number] 20:55:00 Test Item Value Reference Range Interpretation Comments WHITE BLOOD CELL (test code = 5.1 K/mm3 3.5-11.0 N WBC) RED BLOOD CELL (test code = 4.77 M/mm3 4.70-6.10 N RBC) HEMOGLOBIN (test code = HGB) 13.1 G/DL 10.4-14.9 N HEMATOCRIT (test code = HCT) 40.7 % 31.5-44.1 N MEAN CELL VOLUME (test code = 85.3 Fl 84.5-98.6 N MCV) MEAN CELL HGB (test code = MCH) 27.5 pg 27.0-34.2 N MEAN CELL HGB CONCETRATION 32.2 G/DL 31.5-34.0 N (test code = MCHC) RED CELL DISTRIBUTION WIDTH 16.7 SD 11.5-14.5 H (test code = RDW) PLATELET COUNT (test code = 210 K/mm3 150-450 N PLT) MEAN PLATELET VOLUME (test code 10.40 fL 7.0-10.5 N = MPV) NEUTROPHIL % (test code = NT%) 47.7 % 40-76 N IMMATURE GRANULOCYTE % (test 0.6 % 0.0-5.0 N code = IG%) LYMPHOCYTE % (test code = LY%) 40.4 % 20.5-51.1 N MONOCYTE % (test code = MO%) 8.0 % 1.7-9.3 N EOSINOPHIL % (test code = EO%) 3.1 % 0.0-6.0 N BASOPHIL % (test code = BA%) 0.2 % 0.0-2.0 N NUCLEATED RBC % (test code = 0.0 /100WBC% 0.0-1.0 N NRBC%) NEUTROPHIL # (test code = NT#) 2.5 K/mm3 1.8-7.6 N IMMATURE GRANULOCYTE # (test 0.03 x10 3/uL 0.00-0.03 N code = IG#) LYMPHOCYTE # (test code = LY#) 2.1 K/mm3 0.6-3.2 N MONOCYTE # (test code = MO#) 0.4 K/mm3 0.3-1.1 N EOSINOPHIL # (test code = EO#) 0.2 K/mm3 0.0-0.4 N BASOPHIL # (test code = BA#) 0.0 K/mm3 0.0-0.1 N NUCLEATED RBC # (test code = 0.0 K/mm3 0.0-0.1 N NRBC#) MANUAL DIFF REQUIRED (test code NO DIFF/SCN CRITERIA = MDIFF) - CT ABD PELVIS W/O [id number] 03:28:00 [facility] 1990 Sex: F Name: CHRISTINA KEBEDE [facility] [place] : 1990 Age/S: 31 / F [address] [address] Unit #: [id number] Loc: [place] [address] Phys: Shar Parrish MD Acct: [id number] Dis Date: Status: REG ER PHONE #: [phone] Exam Date: 12/09/2021318 FAX #: Reason: upper abd cramping, history of ventral hernia w EXAMS: CPT: [id number] CT ABD PELVIS W/O CONT 67499 CT abdomen and pelvis without IV contrast. Indication: Upper abdominal pain with cramping Location: R16 Comparison: None Technique: CT images of the abdomen and pelvis were obtained from the diaphragm to the pubic symphysis without the administration of intravenous contrast contrast. Coronal reformats are provided. One or more of the following dose reduction techniques were used: Automated exposure control, adjustment of the mA and/or kV according to patient size, and/or utilization of iterative reconstruction technique. Findings: Lungs bases: Unremarkable with the exception of cardiomegaly. Liver: Noncontrast appearance is unremarkable. Gallbl adder: Noncontrast appearance is unremarkable. Pancreas: Noncontrast appearance is unremarkable. Spleen: Noncontrast appearance is unremarkable. Adrenal glands: Noncontrast appearance is unremarkable. Kidneys: Noncontrast appearance is unremarkable. Bowel: No bowel obstruction. The appendix is unremarkable. Prominent constipation is noted. Fluid-filled appearance of the small bowel is also seen possibly reflecting an enterocolitis or ileus in the setting of constipation. Peritoneum: No ascites or free air. Pelvis: Marked bladder wall thickening is seen possibly reflecting cystitis Skeletal: No acute fracture.. Impression: Exam findings very limited by the absence of oral and IV contrast and by a paucity of intra-abdominal fat. Prominent constipation is noted. Fluid- filled appearance of the small bowel is also seen possibly reflecting an enterocolitis or ileus in the setting of constipation. Additional findings as detailed above PAGE 1 Signed Report (CONTINUED) Name: [facility] [place] : 1990 Age/S: 31 / F [address] [place] Unit #: [id number] Loc: [place] [address] Phys: Shar Parrish MD Acct: [id number] Dis Date: Status: REG ER PHONE #: [phone] Exam Date: 12/09/2021 0319 FAX #: Reason: upper abd cramping, history of ventral hernia w EXAMS: CPT: [id number] CT ABD PELVIS W/O CONT 19571 <Continued> at 0328 Reported and signed by: Courtney Braun M.D. CC: Anastasia Ocampo DO Technologist:Stacia Farmer, RT(R)(CT) CTDI: DLP: Trnscb Date/Time: 12/09/2021 (327) [email or web address] Orig Print D/T: S: 12/09/2021 (033) PAGE 2 Signed Report- XR CHEST 2 [id number] 20:42:00 [facility] : 1990 Sex: F Name: CHRISTINA KEBEDE [facility] : 1990 Age/S: 31 / F [address] Unit #: [id number] Loc: [place] [address] Phys: Jerzy Leal MD Acct: [id number] Dis Date: Status: PRE ER PHONE#: [phone] Exam Date: 10/02/20212006 FAX #: Reason: chest pain EXAMS: CPT: [id number] XR CHEST2 V 81621 Fluoro Time: DAP (Gy m2): Air Kerma (mGy): LOCATION: Q15 HISTORY: 31-year-old female who presents with chest pain. COMMENT: Frontal and lateral chest radiographs are compared to a prior study of August 11, 2021. The lungs are clear. Mild left jugular cardiac enlargement is unchanged. The darryl and mediastinum are stable. Skeleton and soft tissues are unchanged. Again seen is a tunneled right IJ hemodialysis catheter, unchanged in position. IMPRESSION: There is no significant change in thechest. Please see above for details. at 2041 Reported and signed by: Velasquez Jarquin M.D. CC: Jerzy Leal MD; Anastasia Ocampo DO PAGE 1 Signed Report Name: CHRISTINA KEBEDE [facility] : 1990 Age/S: 31 / F [address] [address] Unit #: [id number] Loc: [place] [address] Phys: Jerzy Leal MD Acct: [id number] Dis Date: Status: PRE ER PHONE #: [phone] Exam Date: 10/02/20212006 FAX #: Reason: chest pain EXAMS: CPT: [id number] XR CHEST 2 V 74467 Fluoro Time: DAP (Gy m2): Air Kerma (mGy): <Continued> Technologist: Rowan Trevizo RT(R)(CT) Trnscb Date/Time: 10/02/2021 (2041) [id number] Orig Print D/T: S: 10/02/2021 (2044) PAGE 2 Signed ReportCOMPREHENSIVE METABOLIC [id number] 20:31:00 Test Item Value Reference Range Interpretation Comments SODIUM (test code = NA) 135 mmol/L 134-147 N POTASSIUM (test code = K) 3.8 mmol/L 3.4-5.0 N CHLORIDE (test code = CL) 99 mmol/L 100-108 L CARBON DIOXIDE (test code = CO2) 30 mmol/L 21-32 N ANION GAP (test code = GAP) 6.0 GAP calc 4.0-15.0 N GLUCOSE (test code = GLU) 99 MG/DL 70-110 N BLOOD UREA NITROGEN (test code = 35 MG/DL 7-18 H BUN) GLOMERULAR FILTRATION RATE (test 10 estGFR >60 L code = GFR) CREATININE (test code = CREAT) 6.6 MG/DL 0.6-1.0 H TOTAL PROTEIN (test code = PROT) 9.1 G/DL 6.4-8.2 H ALBUMIN (test code = ALB) 3.7 G/DL 3.4-5.0 N GLOBULIN (test code = GLOB) 5.4 GM/dL ALBUMIN/GLOBULIN RATIO (test 0.7 RATIO 1.2-2.2 L code = A/G) CALCIUM (test code = CA) 9.1 MG/DL 8.5-10.1 N BILIRUBIN TOTAL (test code = 0.50 MG/DL 0.2-1.2 N BILT) SGOT/AST (test code = AST) 33 Unit/L 15-37 N SGPT/ALT (test code = ALT) 22 Unit/L 12-78 N ALKALINE PHOSPHATASE TOTAL (test 178 Unit/L 45-117 H code = ALKP) [id number] 20:31:00 Test Item Value Reference Range Interpretation Comments LIPASE (test code = LIP) 425 Unit/L 114-286 H HCG SERUM [id number] 20:31:00 Test Item Value Reference Range Interpretation Comments HCG SERUM QUAL (test SERUM NEGATIVE SCREEN NEGATIVE code = HCGQL) TROP-I HIGH [id number] 20:17:00 Test Item Value Reference Range Interpretation Comments TROP-I HIGH 11.5 ng/L 0-34 N CAUTION: Units of the SENSITIVITY (test current te st methodology code = TROPIHS) (ng/L) diffe rfrom the prior test meth odology (ng/mL) by a fa ctor of 1000. 99t h Percentile Uppe r Reference Limit (URL):Fem ales: 34 ng/LMales: 54 n g/L In order to distin guish acute elevations of h igh sensitivitytrop onin from other clinical conditions, the FourthUnive rsal Definition of M yocardial Infarction stressesclinica l assessment and the demonstration o f a rise and/orfall in s erial troponin result s above the URL. Results fr om different metho dologies should not be c omparedto one another as quantitative re sults and URLs may varyby method. Completed by Nursing: NOCBC W/AUTO [id number] 20:05:00 Test Item Value Reference Range Interpretation Comments WHITE BLOOD CELL (test code = 4.1 K/mm3 3.5-11.0 N WBC) RED BLOOD CELL (test code = 4.83 M/mm3 4.70-6.10 N RBC) HEMOGLOBIN (test code = HGB) 13.4 G/DL 10.4-14.9 N HEMATOCRIT (test code = HCT) 42.3 % 31.5-44.1 N MEAN CELL VOLUME (test code = 87.6 Fl 84.5-98.6 N MCV) MEAN CELL HGB (test code = MCH) 27.7 pg 27.0-34.2 N MEAN CELL HGB CONCETRATION 31.7 G/DL 31.5-34.0 N (test code = MCHC) RED CELL DISTRIBUTION WIDTH 17.2 SD 11.5-14.5 H (test code = RDW) PLATELET COUNT (test code = 158 K/mm3 150-450 N PLT) MEAN PLATELET VOLUME (test code 10.10 fL 7.0-10.5 N = MPV) NEUTROPHIL % (test code = NT%) 36.0 % 40-76 L IMMATURE GRANULOCYTE % (test 0.2 % 0.0-5.0 N code = IG%) LYMPHOCYTE % (test code = LY%) 43.7 % 20.5-51.1 N MONOCYTE % (test code = MO%) 12.5 % 1.7-9.3 H EOSINOPHIL % (test code = EO%) 6.9 % 0.0-6.0 H BASOPHIL % (test code = BA%) 0.7 % 0.0-2.0 N NUCLEATED RBC % (test code = 0.0 /100WBC% 0.0-1.0 N NRBC%) NEUTROPHIL # (test code = NT#) 1.5 K/mm3 1.8-7.6 L IMMATURE GRANULOCYTE # (test 0.01 x10 3/uL 0.00-0.03 N code = IG#) LYMPHOCYTE # (test code = LY#) 1.8 K/mm3 0.6-3.2 N MONOCYTE # (test code = MO#) 0.5 K/mm3 0.3-1.1 N EOSINOPHIL # (test code = EO#) 0.3 K/mm3 0.0-0.4 N BASOPHIL # (test code = BA#) 0.0 K/mm3 0.0-0.1 N NUCLEATED RBC # (test code = 0.0 K/mm3 0.0-0.1 N NRBC#) MANUAL DIFF REQUIRED (test code NO DIFF/SCN CRITERIA = MDIFF) AB HEPATITIS B [id number] 11:08:00 Test Item Value Reference Range Interpretation Comments AB HEPATITIS B 975.5 mIU/mL See_Comment Status of Im munity SURFACE (test code = Anti-HB s Level HBSAB) --- I ncons istent with Imm unity 0.0 - 9.9Consis tent with Immunity >9.9 [Automated mess age] The system [employer] generated this result transmit rosalba reference range : Immunity>9.9. T he reference range was not used to interpret this result as normal/abnormal . AG HEPATITIS B [id number] 11:08:00 Test Item Value Reference Range Interpretation Comments AG HEPATITIS B SURFACE NON REACTIVE INDEX NonReactive (test code = HBSAG) AB HEPATITIS B [id number] 11:08:00 Test Item Value Reference Range Interpretation Comments AB HEPATITIS B CORE Negative Negative Performe d At: HD (test code = HBCAB) [facility] [address] [place], [place] [id number] lima Bear MD Ph:[phone] AG HEPATITIS B [id number] 04:13:00 Test Item Value Reference Range Interpretation Comments AG HEPATITIS B SURFACE NON REACTIVE INDEX NonReactive (test code = HBSAG) BASIC METABOLIC [id number] 15:45:00 Test Item Value Reference Range Interpretation Comments SODIUM (test code = NA) 134 mmol/L 134-147 N POTASSIUM (test code = K) 5.0 mmol/L 3.4-5.0 N CHLORIDE (test code = CL) 99 mmol/L 100-108 L CARBON DIOXIDE (test code = CO2) 26 mmol/L 21-32 N ANION GAP (test code = GAP) 9.0 GAP calc 4.0-15.0 N GLUCOSE (test code = GLU) 170 MG/DL 70-110 H BLOOD UREA NITROGEN (test code = 23 MG/DL 7-18 H BUN) GLOMERULAR FILTRATION RATE (test 11 estGFR >60 L code = GFR) CREATININE (test code = CREAT) 5.6 MG/DL 0.6-1.0 H CALCIUM (test code = CA) 10.0 MG/DL 8.5-10.1 N Comment: After HDBASIC METABOLIC [id number] 08:47:00 Test Item Value Reference Range Interpretation Comments SODIUM (test code = NA) 136 mmol/L 134-147 N POTASSIUM (test code = K) 5.7 mmol/L 3.4-5.0 H CHLORIDE (test code = CL) 103 mmol/L 100-108 N CARBON DIOXIDE (test code = 23 mmol/L 21-32 N CO2) ANION GAP (test code = GAP) 10.0 GAP calc 4.0-15.0 N GLUCOSE (test code = GLU) 258 MG/DL 70-110 H BLOOD UREA NITROGEN (test code 71 MG/DL 7-18 H = BUN) GLOMERULAR FILTRATION RATE 5 estGFR >60 L (test code = GFR) CREATININE (test code = CREAT) 11.2 MG/DL 0.6-1.0 H CALCIUM (test code = CA) 10.6 MG/DL 8.5-10.1 H COVID 19 Asymptomatic IH [id number] 07:53:00 Test Item Value Reference Range Interpretation Comments COVID 19 Asymptomatic NEGATIVE Negative Per ang calderon, IH AG (test code = negative results should COVNONPUIAG) be treated aspresumptive a nd, if inconsistent wi th clinical signs andsymptoms or necessary for p atient management, claude uld betested with a n alternative mol ecular assay. Negative resultsdo not p reclude SARS-CoV-2 infe ction and should not be usedas the sole basis for patient man agement decisions. Nega tive results should be considered in t he context of apat ient's recent exposure s, history, presen ce of clinicalsigns a nd symptoms consis tent with COVID-19. COMPREHENSIVE METABOLIC [id number] 06:03:00 Test Item Value Reference Range Interpretation Comments SODIUM (test code = NA) 135 mmol/L 134-147 N POTASSIUM (test code = K) 8.1 mmol/L 3.4-5.0 HH CHLORIDE (test code = CL) 102 mmol/L 100-108 N CARBON DIOXIDE (test code = CO2) 25 mmol/L 21-32 N ANION GAP (test code = GAP) 8.0 GAP calc 4.0-15.0 N GLUCOSE (test code = GLU) 94 MG/DL 70-110 N BLOOD UREA NITROGEN (test code = 68 MG/DL 7-18 H BUN) GLOMERULAR FILTRATION RATE (test 5 estGFR >60 L code = GFR) CREATININE (test code = CREAT) 10.7 MG/DL 0.6-1.0 H TOTAL PROTEIN (test code = PROT) 8.4 G/DL 6.4-8.2 H ALBUMIN (test code = ALB) 3.5 G/DL 3.4-5.0 N GLOBULIN (test code = GLOB) 4.9 GM/dL ALBUMIN/GLOBULIN RATIO (test 0.7 RATIO 1.2-2.2 L code = A/G) CALCIUM (test code = CA) 8.9 MG/DL 8.5-10.1 N BILIRUBIN TOTAL (test code = 0.40 MG/DL 0.2-1.2 N BILT) SGOT/AST (test code = AST) 35 Unit/L 15-37 N SGPT/ALT (test code = ALT) 19 Unit/L 12-78 N ALKALINE PHOSPHATASE TOTAL (test 177 Unit/L 45-117 H code = ALKP) [id number] 06:03:00 Test Item Value Reference Range Interpretation Comments MAGNESIUM (test code = MAG) 3.4 MG/DL 1.8-2.4 H CBC W/AUTO [id number] 04:38:00 Test Item Value Reference Range Interpretation Comments WHITE BLOOD CELL (test code = 4.8 K/mm3 3.5-11.0 N WBC) RED BLOOD CELL (test code = 4.86 M/mm3 4.70-6.10 N RBC) HEMOGLOBIN (test code = HGB) 13.2 G/DL 10.4-14.9 N HEMATOCRIT (test code = HCT) 43.9 % 31.5-44.1 N MEAN CELL VOLUME (test code = 90.3 Fl 84.5-98.6 N MCV) MEAN CELL HGB (test code = MCH) 27.2 pg 27.0-34.2 N MEAN CELL HGB CONCETRATION 30.1 G/DL 31.5-34.0 L (test code = MCHC) RED CELL DISTRIBUTION WIDTH 19.4 SD 11.5-14.5 H (test code = RDW) PLATELET COUNT (test code = 143 K/mm3 150-450 L PLT) MEAN PLATELET VOLUME (test code 9.70 fL 7.0-10.5 N = MPV) NEUTROPHIL % (test code = NT%) 41.2 % 40-76 N IMMATURE GRANULOCYTE % (test 0.2 % 0.0-5.0 N code = IG%) LYMPHOCYTE % (test code = LY%) 39.7 % 20.5-51.1 N MONOCYTE % (test code = MO%) 11.0 % 1.7-9.3 H EOSINOPHIL % (test code = EO%) 7.7 % 0.0-6.0 H BASOPHIL % (test code = BA%) 0.2 % 0.0-2.0 N NUCLEATED RBC % (test code = 0.0 /100WBC% 0.0-1.0 N NRBC%) NEUTROPHIL # (test code = NT#) 2.0 K/mm3 1.8-7.6 N IMMATURE GRANULOCYTE # (test 0.01 x10 3/uL 0.00-0.03 N code = IG#) LYMPHOCYTE # (test code = LY#) 1.9 K/mm3 0.6-3.2 N MONOCYTE # (test code = MO#) 0.5 K/mm3 0.3-1.1 N EOSINOPHIL # (test code = EO#) 0.4 K/mm3 0.0-0.4 N BASOPHIL # (test code = BA#) 0.0 K/mm3 0.0-0.1 N NUCLEATED RBC # (test code = 0.0 K/mm3 0.0-0.1 N NRBC#) MANUAL DIFF REQUIRED (test code NO DIFF/SCN CRITERIA = MDIFF) BASIC METABOLIC [id number] 12:14:00 Test Item Value Reference Range Interpretation Comments SODIUM (test code = NA) 135 mmol/L 134-147 N POTASSIUM (test code = K) 5.3 mmol/L 3.4-5.0 H CHLORIDE (test code = CL) 100 mmol/L 100-108 N CARBON DIOXIDE (test code = CO2) 29 mmol/L 21-32 N ANION GAP (test code = GAP) 6.0 GAP calc 4.0-15.0 N GLUCOSE (test code = GLU) 86 MG/DL 70-110 N BLOOD UREA NITROGEN (test code = 42 MG/DL 7-18 H BUN) GLOMERULAR FILTRATION RATE (test 8 estGFR >60 L code = GFR) CREATININE (test code = CREAT) 8.1 MG/DL 0.6-1.0 H CALCIUM (test code = CA) 9.9 MG/DL 8.5-10.1 N COMPREHENSIVE METABOLIC [id number] 18:08:00 Test Item Value Reference Range Interpretation Comments SODIUM (test code = NA) 128 mmol/L 134-147 L POTASSIUM (test code = K) 6.2 mmol/L 3.4-5.0 HH CHLORIDE (test code = CL) 93 mmol/L 100-108 L CARBON DIOXIDE (test code = 22 mmol/L 21-32 N CO2) ANION GAP (test code = GAP) 13.0 GAP calc 4.0-15.0 N GLUCOSE (test code = GLU) 81 MG/DL 70-110 N BLOOD UREA NITROGEN (test code 93 MG/DL 7-18 H = BUN) GLOMERULAR FILTRATION RATE 5 estGFR >60 L (test code = GFR) CREATININE (test code = CREAT) 10.7 MG/DL 0.6-1.0 H TOTAL PROTEIN (test code = 8.8 G/DL 6.4-8.2 H PROT) ALBUMIN (test code = ALB) 3.4 G/DL 3.4-5.0 N GLOBULIN (test code = GLOB) 5.4 GM/dL ALBUMIN/GLOBULIN RATIO (test 0.6 RATIO 1.2-2.2 L code = A/G) CALCIUM (test code = CA) 9.5 MG/DL 8.5-10.1 N BILIRUBIN TOTAL (test code = 0.30 MG/DL 0.2-1.2 N BILT) SGOT/AST (test code = AST) 36 Unit/L 15-37 N SGPT/ALT (test code = ALT) 26 Unit/L 12-78 N ALKALINE PHOSPHATASE TOTAL 175 Unit/L 45-117 H (test code = ALKP) HCG SERUM [id number] 18:08:00 Test Item Value Reference Range Interpretation Comments HCG SERUM QUAL (test SERUM NEGATIVE SCREEN NEGATIVE code = HCGQL) CBC W/AUTO [id number] 16:06:00 Test Item Value Reference Range Interpretation Comments WHITE BLOOD CELL (test code = 4.5 K/mm3 3.5-11.0 N WBC) RED BLOOD CELL (test code = 4.73 M/mm3 4.70-6.10 N RBC) HEMOGLOBIN (test code = HGB) 12.2 G/DL 10.4-14.9 N HEMATOCRIT (test code = HCT) 40.6 % 31.5-44.1 N MEAN CELL VOLUME (test code = 85.8 Fl 84.5-98.6 N MCV) MEAN CELL HGB (test code = MCH) 25.8 pg 27.0-34.2 L MEAN CELL HGB CONCETRATION 30.0 G/DL 31.5-34.0 L (test code = MCHC) RED CELL DISTRIBUTION WIDTH 18.0 SD 11.5-14.5 H (test code = RDW) PLATELET COUNT (test code = 183 K/mm3 150-450 N PLT) MEAN PLATELET VOLUME (test code 11.90 fL 7.0-10.5 H = MPV) NEUTROPHIL % (test code = NT%) 28.7 % 40-76 L IMMATURE GRANULOCYTE % (test 0.2 % 0.0-5.0 N code = IG%) LYMPHOCYTE % (test code = LY%) 45.7 % 20.5-51.1 N MONOCYTE % (test code = MO%) 13.4 % 1.7-9.3 H EOSINOPHIL % (test code = EO%) 11.6 % 0.0-6.0 H BASOPHIL % (test code = BA%) 0.4 % 0.0-2.0 N NUCLEATED RBC % (test code = 0.0 /100WBC% 0.0-1.0 N NRBC%) NEUTROPHIL # (test code = NT#) 1.3 K/mm3 1.8-7.6 L IMMATURE GRANULOCYTE # (test 0.01 x10 3/uL 0.00-0.03 N code = IG#) LYMPHOCYTE # (test code = LY#) 2.1 K/mm3 0.6-3.2 N MONOCYTE # (test code = MO#) 0.6 K/mm3 0.3-1.1 N EOSINOPHIL # (test code = EO#) 0.5 K/mm3 0.0-0.4 H BASOPHIL # (test code = BA#) 0.0 K/mm3 0.0-0.1 N NUCLEATED RBC # (test code = 0.0 K/mm3 0.0-0.1 N NRBC#) MANUAL DIFF REQUIRED (test code NO DIFF/SCN CRITERIA = MDIFF) COVID 19 INHOUSE [id number] 16:05:00 Test Item Value Reference Range Interpretation Comments COVID 19 INHOUSE AG NEGATIVE Negative Per manu facturer, (test code = negative result s should [id number]) be treated aspr esumptive and, if inconsi stent with clinical signs andsymptoms or necessary for patient man agement, should betested with an alternative mol ecular assay. Negative resultsdo not preclude SA RS-CoV-2 infection and s hould not be usedas the s ole basis for patient man agement decisions. Nega tive results should be considered in t he context of apatient's r ecent exposures, hist ory, presence of cli nicalsigns and symptoms co nsistent with COVID-19. [id number] 03:25:00 Test Item Value Reference Range Interpretation Comments TROPONIN-I (test < 0.015 NG/ML 0.000-0.045 N Negative: </= 0.045 code = TROPI) Positive: >/= 0.046 Correlation wit h serial results, other cardiac markers, and cl inical findings is nec essary to determine the c linical significance of this result. Quantit ative results using d ifferent methodologies s hould not be compared to one another as nume rical results may josé manuel yby method. Completed by Nursing: NOBASIC METABOLIC [id number] 01:04:00 Test Item Value Reference Range Interpretation Comments SODIUM (test code = NA) 135 mmol/L 134-147 N POTASSIUM (test code = K) 4.5 mmol/L 3.4-5.0 N CHLORIDE (test code = CL) 99 mmol/L 100-108 L CARBON DIOXIDE (test code = CO2) 31 mmol/L 21-32 N ANION GAP (test code = GAP) 5.0 GAP calc 4.0-15.0 N GLUCOSE (test code = GLU) 92 MG/DL 70-110 N BLOOD UREA NITROGEN (test code = 22 MG/DL 7-18 H BUN) GLOMERULAR FILTRATION RATE (test 11 estGFR >60 L code = GFR) CREATININE (test code = CREAT) 4.9 MG/DL 0.6-1.0 H CALCIUM (test code = CA) 9.8 MG/DL 8.5-10.1 N Completed by Nursing: NOHEPATIC FUNCTION [id number] 01:04:00 Test Item Value Reference Range Interpretation Comments TOTAL PROTEIN (test code = PROT) 9.6 G/DL 6.4-8.2 H ALBUMIN (test code = ALB) 4.1 G/DL 3.4-5.0 N BILIRUBIN TOTAL (test code = 0.50 MG/DL 0.2-1.2 N BILT) BILIRUBIN DIRECT (test code = < 0.10 MG/DL 0.00-0.30 N BILD) BILIRUBIN INDIRECT (test code = 0.40 MG/DL 0.2-1.2 N BILIND) SGOT/AST (test code = AST) 43 Unit/L 15-37 H SGPT/ALT (test code = ALT) 27 Unit/L 12-78 N ALKALINE PHOSPHATASE TOTAL (test 180 Unit/L 45-117 H code = ALKP) Completed by Nursing: NOCREATINE KINASE (CK)[id number] 01:04:00 Test Item Value Reference Range Interpretation Comments CREATINE KINASE (CK) (test code = 184 Unit/L 26-192 N CK) Completed by Nursing: NONT PRO-BRAIN NATRIURETIC [id number] 01:04:00 Test Item Value Reference Range Interpretation Comments NT PRO-BRAIN NATRIURETIC PEPTI 5629 PG/ML 0-100 H (test code = PROBNP) Completed by Nursing: [id number] 01:04:00 Test Item Value Reference Range Interpretation Comments TROPONIN-I (test < 0.015 NG/ML 0.000-0.045 N Negative: </= 0.045 code = TROPI) Positive: >/= 0.046 Correlation wit h serial results, other cardiac markers, and cl inical findings is nec essary to determine the c linical significance of this result. Quantit ative results using d ifferent methodologies s hould not be compared to one another as nume rical results may josé manuel yby method. Completed by Nursing: NOCBC W/O [id number] 00:54:00 Test Item Value Reference Range Interpretation Comments WHITE BLOOD CELL (test code = WBC) 5.3 K/mm3 3.5-11.0 N RED BLOOD CELL (test code = RBC) 5.12 M/mm3 4.70-6.10 N HEMOGLOBIN (test code = HGB) 13.2 G/DL 10.4-14.9 N HEMATOCRIT (test code = HCT) 43.5 % 31.5-44.1 N MEAN CELL VOLUME (test code = MCV) 85.0 Fl 84.5-98.6 N MEAN CELL HGB (test code = MCH) 25.8 pg 27.0-34.2 L MEAN CELL HGB CONCETRATION (test 30.3 G/DL 31.5-34.0 L code = MCHC) RED CELL DISTRIBUTION WIDTH (test 18.0 SD 11.5-14.5 H code = RDW) PLATELET COUNT (test code = PLT) 138 K/mm3 150-450 L MEAN PLATELET VOLUME (test code = 10.50 fL 7.0-10.5 N MPV) - XR CHEST 1 [id number] 23:59:00 [facility] 1990 Sex: F Name: CHRISTINA KEBEDE : 1990 Age/S: 31 / F [place] Unit #: [id number]: Cristobal Galleg[place] [address] Phys: Shar Parrish MD Acct: [id number] Dis Date: Status: REG ER PHONE #: [phone] Exam Date: 08/11/20212350 FAX #: Reason: chest pain EXAMS: CPT: [id number] XR CHEST 1V 46542 Fluoro Time: DAP (Gy m2): Air Kerma (mGy): Examination: Chest 1 view Location code: S17 Comparison: Chest May 10, 2021 Discussion: Clinical history is remarkable for chest pain. Cardiac silhouette is normal in size. Dialysis catheter is in good position. No consolidation, effusion, or pneumothorax is present. The osseous structures are unremarkable. Impression: 1. No acute finding. at 2359 Reported and signed by: Dann Martin M.D. CC: Anastasia Ocampo DO PAGE 1 Signed Report Name: CHRISTINA KEBEDE :1990 Age/S: 31 / F [place] Unit #: [id number] Loc: Cristobal Galleg[place] [address] Phys: Shar Parrish MD Acct: [id number] Dis Date: Status: REG ER PHONE #: [phone] Exam Date: 08/11/20212350 FAX #: Reason: chest pain EXAMS: CPT: [id number] XR CHEST 1 V 74546 Fluoro Time: DAP (Gy m2): AirKerma (mGy): <Continued> Technologist: RT Suzanne (R)(CT) Trnscb Date/Time: 08/11/2021 (662) VinceJH12 Orig Print D/T: S: 08/12/2021 (0002) PAGE 2 Signed [id number] 15:56:00 Test Item Value Reference Range Interpretation Comments SURG (test code = SURG) RUN DATE: 06/21/21 [facility] PAGE 1 RUN TIME: 1556 Specimen Inquiry RUN USER: INTERFACE PATIENT: CHRISTINA KEBEDE LOC: REECE U #: [id number] AGE/SX: 30/F ROOM: RE06/08/21[facility] DR: Stan Tom : [birth year] BED: DIS: STATUS: [place] [facility] [place] TLOC: SPEC #: [id number] RECD: 06/11/21 STATUS: JOSH REQ #: [id number] BRIANNE: 06/08/[address] [facility] [address]: Stan Tom MD ENTERED: 06/11/21 SP TYPE: SURG OTHR DR: Anastasia Ocampo DO ORDERED: SURG PATH LVL 1 COPIES TO: Stan Tom MD [address] [address] [email or web address] DamarisAnastasia Fonseca DO [address] [facility] [address] [place] [address] HISTOLOGY: TISSUE ID BLK PCS SHANNON LEV PROCEDURE DISPOSITION ____ ___ ___ ___ ABDOMEN, NOS A 1 1 PROCEDURES: SURG PATH LVL 1 (06/11/21) TISSUES: A. ABD - PERITONEAL DIALYSIS CATHETER - ID ONLY CPT CODES CPT CODE(S): 11165 , , , , , , FINAL DIAGNOSIS Peritoneal dialysis catheter, removal: UNREMARKABLE DIALYSIS CATHETER (GROSS DIAGNOSIS ONLY) GROSS DESCRIPTION Peritoneal dialysis catheter. The specimen consists of two translucent synthetic tubing, the longer tubing measures 47 cm in length x 0.5 cm in diameter. There is a metallic connector inserted inside the tubing measuring 3.0 x 0.5 x 0.5 cm. The shorter tubing measures 29.5 cm in length x 0.5 cm in diameter with an attached metallic connector at one end, 2.4 x 0.9 x 0.9 cm. The specimen is for gross identification only and is photographed. /simin/artur Grossing performed at [facility] Pathology, [facility], [address], [place] [address]. Immigration Lawyer: Merly Delacruz M.D. CONTINUED ON NEXT PAGE RUN DATE: 06/21/21 [facility] PAGE 2 RUN TIME: 1556 Specimen Inquiry RUN USER: INTERFACE SPEC #: [facility]:[id number] PATIENT: CHRISTINA KEBEDE #[id number] (Continued) MICROSCOPIC DESCRIPTION Peritoneal dialysis catheter. No sections submitted. Gross diagnosis only. Signed SIGNATURE ON FILE Deon Lynne 06/21/21 1556 END OF REPORT [id number] 17:32:00 Test Item Value Reference Range Interpretation Comments POTASSIUM (test code = K) 4.3 mmol/L 3.4-5.0 N CHEM [id number] 12:30:0088[facility] HermannCHEM [id number] 12:30:0048 [facility] HermannCHEM [id number] 12:30:009.28[facility] HermannCHEM PANEL 2021-05-24 12:30:28483Lgirosgc HermannCHEM [id number] 12:30:004.4[facility] HermannCHEM [id number] 12:30:66803Hwatqykz HermannCHEM [id number] 12:30:0025[facility] HermannCHEM [id number] 12:30:009.5[facility] HermannCHEM [id number] 12:30:0015.4[facility] HermannCHEM [id number] 12:30:005 [facility] IojunylWOYZMXWTWK2980-24-07 12:30:004.3[facility] HermannHEMATOLOGY 2021-05-24 12:30:004.47[facility] JvwtpxyYBXKBLITOV3381-86-18 12:30:0012.7[facility] YgmlxvtMEJDJJEQCN1995-40-73 12:30:0040.5[facility] BhrhxgyMEMFYTGNKW1336-33-33 12:30:0090.6[facility] GqpxmziQATUZRNKTC2819-27-42 12:30:00 Test Item Value Reference Range Interpretation Comments MCH (test code = MCH) 28.3 pg 27.0-31.0 [facility] HpljeyxJAQCZDCQFY4837-77-37 12:30:0031.3[facility] HermannHEMATOLOGY 2021-05-24 12:30:0017.9[facility] DahtjjoHTYRKCKXSG4378-11-81 12:30:94289Yucoaxlf RofpkcxOWEEACLGIH1323-95-15 12:30:008.4[facility] GyeyqzbTJUXZDIPAH4942-02-80 12:30:00See Note 1(05/24/21 7:30 AM)[facility] [id number] 12:30:00 1+ *ABN*(05/24/21 7:30 AM)[facility] WgwarwwPAESITGEKP5226-08-12 12:30:0040.5 [facility] JtgpzzsSYPRDKZGQT2134-83-35 12:30:0035.8[facility] HermannHEMATOLOGY 2021-05-24 12:30:0013.7[facility] EgxhtjzCVZJKXAEAL0806-13-95 12:30:009.0[facility] ChbwdrvZLLYHZPZIZ4058-44-43 12:30:001.0[facility] MucxpfqRQKCLKNIUU8740-59-14 12:30:001.7[facility] RhajopkFZXYOKFWTP4756-48-04 12:30:001.5[facility] [place] HNYRBNDZSY8355-77-85 12:30:000.6[facility] LgvodtrASEMNBCZRL2707-03-52 12:30:000.4 [facility] HermannCHEM [id number] 12:30:0088[facility] HermannCHEM PANEL 2021-05-24 12:30:0048[facility] HermannCHEM CHBFK0838-33-04 12:30:009.28[facility]annCHE[facility] FRUJI3945-80-88 12:30:33436Jftekduk HermannCHEM DCZPW8298-33-93 12:30:004.4[facility]annCHE[facility] CDVNX1913-24-68 12:30:28716Ddkacuzo HermannCHEM HTXGX6868-20-94 12:30:0025[facility]annCHE[facility] NGTVO5344-74-82 12:30:009.5 [facility] FZBPE1681-69-95 12:30:0015.4[facility]annCHEM PANEL 2021-05-24 12:30:005[facility] OjnhtroWXHFWLDRQW2840-03-74 12:30:004.3[facility] BzxpdixVMGYQAXTJI7657-88-30 12:30:004.47[facility] RrskpvoGAZNFQBXYR6150-78-53 12:30:0012.7[facility] ShcqjseZINPLJXRUX2987-35-53 12:30:0040.5[facility] LZVSVDQJQS7187-18-22 12:30:0090.6[facility] RvvfvbbSHXFGOXKBO8660-51-66 12:30:00 Test Item Value Reference Range Interpretation Comments MCH (test code = MCH) 28.3 pg 27.0-31.0 [facility] VvxvkynHYCSPQHSDQ5924-61-86 12:30:0031.3[facility]annHEMATOLOGY 2021-05-24 12:30:0017.9[facility] ZnrozyfYKRBFMOKUJ7048-86-12 12:30:94120Tsowgcth CvrqjooBOMXJPNIUV8368-77-10 12:30:008.4[facility] TnkgwdxEULUVBDGCZ0281-14-63 12:30:00See Note 1(05/24/21 7:30 AM)[facility] FbjoetmBRHHQYOKSM3965-09-50 12:30:00 1+ *ABN*(05/24/21 7:30 AM)[facility] DbefkuaPNBKLNOPCJ1131-00-68 12:30:0040.5 [facility] ThtguncGERJWLSOZU1042-60-62 12:30:0035.8[facility]annHEMATOLOGY 2021-05-24 12:30:0013.7[facility] QlwyruqKKFJOFWVMO6178-45-68 12:30:009.0[facility] SvjnqehGWBEALSEDT4944-84-60 12:30:001.0[facility] PmqitxeZCLLBOBETQ1216-85-99 12:30:001.7[facility] YdystkoBMJRNGYLIB2522-48-46 12:30:001.5[facility] NZNKUONNGV7677-29-20 12:30:000.6[facility] BtnwshwTGVIIDGXFT2633-21-22 12:30:000.4 [facility] OgotnavSUHGJMFYNFG6114-36-01 04:24:00 Test Item Value Reference Range Interpretation Comments PHOSPHOROUS (test code = PHOS) 4.2 MG/DL 2.5-4.9 N [id number] 04:24:00 Test Item Value Reference Range Interpretation Comments MAGNESIUM (test code = MAG) 2.3 MG/DL 1.8-2.4 N [id number] 04:24:00 Test Item Value Reference Range Interpretation Comments TROPONIN-I (test 0.051 NG/ML 0.000-0.045 Negative: < /= 0.045 code = TROPI) Positive: >/= 0.046 Correlation wit h serial results, other cardiac markers, and cl inical findings is nec essary to determine the c linical significance of this result. Quantit ative results using d ifferent methodologies s hould not be compared to one another as nume rical results may josé manuel yby method. COVID 19 INHOUSE [id number] 01:08:00 Test Item Value Reference Range Interpretation Comments COVID 19 INHOUSE AG NEGATIVE Negative Per manu facturer, (test code = negative result s should [id number]) be treated aspr esumptive and, if inconsi stent with clinical signs andsymptoms or necessary for patient man agement, should betested with an alternative mol ecular assay. Negative resultsdo not preclude SA RS-CoV-2 infection and s hould not be usedas the s ole basis for patient man agement decisions. Nega tive results should be considered in t he context of apatient's r ecent exposures, hist ory, presence of cli nicalsigns and symptoms co nsistent with COVID-19. [id number] 01:00:00 Test Item Value Reference Range Interpretation Comments TROPONIN-I (test 0.044 NG/ML 0.000-0.045 N Negative: < /= 0.045 code = TROPI) Positive: >/= 0.046 Correlation wit h serial results, other cardiac markers, and cl inical findings is nec essary to determine the c linical significance of this result. Quantit ative results using d ifferent methodologies s hould not be compared to one another as nume rical results may josé manuel yby method. Completed by Nursing: OOWFEQIKJQ-[id number] 23:35:00 Test Item Value Reference Range Interpretation Comments TROPONIN-I (test 0.030 NG/ML 0.000-0.045 N Negative: < /= 0.045 code = TROPI) Positive: >/= 0.046 Correlation wit h serial results, other cardiac markers, and cl inical findings is nec essary to determine the c linical significance of this result. Quantit ative results using d ifferent methodologies s hould not be compared to one another as nume rical results may josé manuel yby method. Completed by Nursing: NO- XR CHEST 1 [id number] 22:39:00 [facility] 1990 Sex: F Name: CHRISTINA KEBEDE : 1990 Age/S: 30 / F [address] [address] [place] Unit #: [id number]: Cristobal Gallego [address] Phys: Gerhard Kaba DO Acct: [id number] Dis Date: Status: REG ER PHONE #: [phone] Exam Date: 05/10/20212229 FAX #: Reason: chest pain EXAMS: CPT: [id number] XR CHEST 1 V 7 1045 Fluoro Time: DAP (Gy m2): Air Kerma (mGy): EXAM: - XR CHEST 1 V COMPARISON: 02/18/2021 LOCATION: H57 HISTORY: 30 years-old Female with chest pain TECHNIQUE: Single AP view of the chest. FINDINGS: Right-sided permacath. The cardiomediastinal silhouette is within normal limits. The lungs are well ae rated. No large pneumothorax or pleural effusion. Osseous structures and soft tissues demonstrate noacute findings. The visualized upper abdomen is unremarkable. IMPRESSION: No acute cardiopulmonary abnormality. at 2239 Reported and signed by: Monie Johnson M.D. CC: Gerhard Kaba DO PAGE 1 Signed Report Name: CHRISTINA KEBEDE : 1990 Age/S: 30 / F [address] [facility] Unit #: [id number] Loc: Cristobal Galleg[place] [address] Phys: Gerhard Kaba DO Acct: [id number] Dis Date: Status: REG ER PHONE #: Exam Date: 05/10/20212229 FAX #: Reason: chest pain EXAMS: CPT: [id number] XR CHEST 1 V 12102 Fluoro Time: DAP (Gy m2): Air Kerma (mGy): <Continued> Technologist: Kinjal Martinez, RT(R) Trnscb Date/Time: 05/10/2021 (2238) [email or web address] Orig Print D/T: S: 05/10/2021 (4253) PAGE 2 Signed ReportBASIC METABOLIC [id number] 22:12:00 Test Item Value Reference Range Interpretation Comments SODIUM (test code = NA) 137 mmol/L 134-147 N POTASSIUM (test code = K) 3.0 mmol/L 3.4-5.0 L CHLORIDE (test code = CL) 100 mmol/L 100-108 N CARBON DIOXIDE (test code = CO2) 30 mmol/L 21-32 N ANION GAP (test code = GAP) 7.0 GAP calc 4.0-15.0 N GLUCOSE (test code = GLU) 80 MG/DL 70-110 N BLOOD UREA NITROGEN (test code = 11 MG/DL 7-18 N BUN) GLOMERULAR FILTRATION RATE (test 18 estGFR >60 L code = GFR) CREATININE (test code = CREAT) 3.3 MG/DL 0.6-1.0 H CALCIUM (test code = CA) 8.9 MG/DL 8.5-10.1 N Completed by Nursing: ERNSTREATINE KINASE (CK)2021-05-10 22:12:00 Test Item Value Reference Range Interpretation Comments CREATINE KINASE (CK) (test code = 57 Unit/L 26-192 N CK) Completed by Nursing: [id number]-[id number] 22:12:00 Test Item Value Reference Range Interpretation Comments TROPONIN-I (test 0.019 NG/ML 0.000-0.045 N Negative: < /= 0.045 code = TROPI) Positive: >/= 0.046 Correlation wit h serial results, other cardiac markers, and cl inical findings is nec essary to determine the c linical significance of this result. Quantit ative results using d ifferent methodologies s hould not be compared to one another as nume rical results may josé manuel yby method. Completed by Nursing: ERNSTBC W/O [id number] 21:46:00 Test Item Value Reference Range Interpretation Comments WHITE BLOOD CELL (test code = WBC) 6.2 K/mm3 3.5-11.0 N RED BLOOD CELL (test code = RBC) 3.43 M/mm3 4.70-6.10 L HEMOGLOBIN (test code = HGB) 10.0 G/DL 10.4-14.9 L HEMATOCRIT (test code = HCT) 33.3 % 31.5-44.1 N MEAN CELL VOLUME (test code = MCV) 97.1 Fl 84.5-98.6 N MEAN CELL HGB (test code = MCH) 29.2 pg 27.0-34.2 N MEAN CELL HGB CONCETRATION (test 30.0 G/DL 31.5-34.0 L code = MCHC) RED CELL DISTRIBUTION WIDTH (test 18.6 SD 11.5-14.5 H code = RDW) PLATELET COUNT (test code = PLT) 181 K/mm3 150-450 N MEAN PLATELET VOLUME (test code = 11.30 fL 7.0-10.5 H MPV) CHEM CYAVZ3377-58-87 09:04:0090[facility] PEKBY3668-88-39 09:04:0013 [facility] GHVCM5594-93-56 09:04:004.00[facility]annCHEM PANEL 2021-04-29 09:04:18490Kvmldmws HermannCHEM SPOOT6434-99-58 09:04:003.6[facility]annCHE[facility] JEGEU3054-38-36 09:04:0098[facility]CHE[facility] CWXHC8020-29-53 09:04:0030[facility]annCHE[facility] DUKZU6583-93-43 09:04:009.4[facility]annCHE[facility] SYELU6953-69-74 09:04:007.5[facility]annCHE[facility] RARKB9942-62-06 09:04:002.8 [facility] YAFGF2429-79-81 09:04:0020[facility]annCHE[facility] PANEL 2021-04-29 09:04:0044[facility]annCHE[facility] JWGGP6936-50-35 09:04:42051Fbfopuvi HermannCHEM YYHPT0434-89-25 09:04:000.4[facility]annCHE[facility] KYVXL4332-82-82 09:04:009.6[facility]annCHE[facility] OASBP8445-71-65 09:04:00 Test Item Value Reference Range Interpretation Comments B/C Ratio (test code = B/C Ratio) 3 1 6-25 [facility] SIKYP0375-32-78 09:04:004.7[facility]annCHEM PANEL 2021-04-29 09:04:00 Test Item Value Reference Range Interpretation Comments A/G Ratio (test code = A/G Ratio) 0.6 1 0.7-1.6 [facility] GXQHY6245-32-90 09:04:0014[facility]annCHE[facility] PANEL 2021-04-29 09:04:002.1[facility] AlelbkhSAAVGFDJJC9031-44-84 09:04:0052.2[facility] ZrtuiwyZRELKPSTGM5873-68-96 09:04:0029.1[facility] AfuyedxMEFGPYXMNL4977-93-70 09:04:0011.6[facility] MjspglzFYQAYWZJLN8694-72-39 09:04:006.5[facility] EFDZVXYSGU6414-74-14 09:04:000.6[facility] KxqznjeYRXDUFDVVV2094-77-25 09:04:002.9 [facility] NlkimioNCJBJQHJDE8146-19-66 09:04:001.6[facility]annHEMATOLOGY 2021-04-29 09:04:000.6[facility] QcxrpjdYPLMRSDWLC7166-91-85 09:04:000.4[facility] DhtmvvhVYTRMGVLDA4284-69-76 09:04:005.5[facility] RxbnuqpYDGLLJUMHI7733-00-98 09:04:002.84[facility] DbjdeyoBOEREAPNLH3326-08-40 09:04:008.4[facility] TCWDCLYMCG9751-33-99 09:04:0025.3[facility] TjhbszcQGNPZEGKBP7096-49-30 09:04:00 89.0[facility] FozqmufIUDPAGOZYP4589-53-84 09:04:00 Test Item Value Reference Range Interpretation Comments MCH (test code = MCH) 29.6 pg 27.0-31.0 [facility] OqwkdzsEJLLSVPEOX5937-73-68 09:04:0033.2[facility]annHEMATOLOGY 2021-04-29 09:04:0017.5[facility] DcifqgsWFZVXQJVJQ6672-78-63 09:04:12579Nuczirrn YyymyzeCUICQTIMSH4364-35-42 09:04:008.6[facility]annCHEM ASXBI0664-11-53 09:04:0090[facility]annCHE[facility] ZCFIR2875-91-87 09:04:0013[facility]CHE[facility] YBQUM3145-55-32 09:04:004.00[facility]annCHE[facility] SQIGC0198-45-75 09:04:30117 [facility]annCHE[facility] ISPKS6250-44-78 09:04:003.6[facility]annCHE[facility] PANEL 2021-04-29 09:04:0098[facility]annCHE[facility] EHFVM0096-61-53 09:04:0030[facility] RYXUW2627-69-98 09:04:009.4[facility]annCHE[facility] AELJP5531-86-30 09:04:007.5[facility]CHE[facility] LOPRJ4881-89-75 09:04:002.8[facility]annCHE[facility] KLBJB6311-22-45 09:04:0020[facility] GMSDX2741-52-50 09:04:0044 [facility]CHE[facility] NODNR0791-11-27 09:04:11992Hsvseydy HermannCHEM PANEL 2021-04-29 09:04:000.4[facility]annCHE[facility] NKXWN5062-85-30 09:04:009.6[facility]CHE[facility] TAHDC6128-73-68 09:04:00 Test Item Value Reference Range Interpretation Comments B/C Ratio (test code = B/C Ratio) 3 1 6-25 [facility] JBMQX7314-47-66 09:04:004.7[facility]annCHEM PANEL 2021-04-29 09:04:00 Test Item Value Reference Range Interpretation Comments A/G Ratio (test code = A/G Ratio) 0.6 1 0.7-1.6 [facility] DURFQ5364-86-51 09:04:0014[facility]annCHEM PANEL 2021-04-29 09:04:002.1[facility] WmcvsalEXHNVYZUAZ6105-34-30 09:04:0052.2[facility] GggsjjlHSRYTPDZGL2279-44-90 09:04:0029.1[facility] DuamyarWOZHVNIQMG6673-41-42 09:04:0011.6[facility] CkvfkfaYLATHTZYLP9435-30-95 09:04:006.5[facility] YFNJKRQHGS6527-23-79 09:04:000.6[facility] PozyfgmPZHBVCCBKT7406-34-42 09:04:002.9 [facility] WfgsfrgCGXNEVVEFC6433-49-64 09:04:001.6[facility]annHEMATOLOGY 2021-04-29 09:04:000.6[facility] WxdgiofQQOZXIKOZG5936-32-99 09:04:000.4[facility] KwdpomeQNQHBQZAWU8932-85-06 09:04:005.5[facility] MqmgautPCAWOYMUGC3151-83-13 09:04:002.84[facility] ZimxuizDZDOVVOIAQ7171-09-38 09:04:008.4[facility] KMOBOTVLZC3503-44-18 09:04:0025.3[facility] YkahtuyPILVPRMQBJ9726-09-28 09:04:00 89.0[facility] LlxnesxVBVGVFOOHA8606-75-30 09:04:00 Test Item Value Reference Range Interpretation Comments MCH (test code = MCH) 29.6 pg 27.0-31.0 [facility] EncycptNYPDIODJMW6531-26-11 09:04:0033.2[facility]annHEMATOLOGY 2021-04-29 09:04:0017.5[facility] IfevnpkBBDQUZUKAH6933-55-53 09:04:31070Ekiehnhj GlcvildZCUMUSUABV4681-17-55 09:04:008.6[facility] ZgoyvxyRAPXLPFYTO8460-33-50 21:00:00Negative *NA*(04/28/21 4:00 PM)[facility] RlwsuhoBDXBRTCIQC3064-01-83 21:00:00Negative *NA*(04/28/21 4:00 PM)[facility]annCARDIAC IHTOWTY0162-53-42 15:00:000.03[facility] HermannCARDIAC JBHPBFZ7294-08-87 15:00:000.03[facility] ClmnspcQMVWUVWXGE7019-24-28 11:03:00Not Detected (04/28/21 6:03 AM)[facility] OgcybqpKISTMXUWPM0148-04-70 11:03:00Not Detected (04/28/21 6:03 AM)[facility]annCARDIAC NVNUVKR7444-80-97 08:22:000.03[facility]annCHEM PANEL 2021-04-28 08:22:0094[facility]annCHEM EDDCR0441-13-04 08:22:0030[facility]annCHEM ODOHA6833-69-67 08:22:006.29[facility]annCHEM NYCPW8355-55-98 08:22:86761Rwyfzlaa HermannCHEM MLEZK0852-08-48 08:22:003.8[facility]annCHEM SYFGA9116-33-70 08:22:14020Kodtvfac HermannCHEM KFRJP5258-48-80 08:22:0031 [facility]CHE[facility] GYQGH5480-39-53 08:22:008.4[facility]annCHEM PANEL 2021-04-28 08:22:008.1[facility]annCHE[facility] NKJWH8275-30-94 08:22:002.9[facility]annCHEM QRMIA4523-04-18 08:22:0029[facility]annCHE[facility] RBJEM2458-42-01 08:22:0068[facility]annCHE[facility] AMNBV4730-37-13 08:22:51137Qvjbvysh HermannCHEM FPAAQ7746-38-03 08:22:000.4[facility]annCHE[facility] NGDRL8644-50-55 08:22:009.8 [facility]annCHE[facility] SQYQI9518-20-54 08:22:00 Test Item Value Reference Range Interpretation Comments B/C Ratio (test code = B/C Ratio) 5 1 6-25 [facility]annCHE[facility] UNRWL5809-86-46 08:22:005.2[facility]annCHEM PANEL 2021-04-28 08:22:00 Test Item Value Reference Range Interpretation Comments A/G Ratio (test code = A/G Ratio) 0.6 1 0.7-1.6 [facility]annCHE[facility] LUMDH5172-95-89 08:22:008[facility]annCHEM PANEL 2021-04-28 08:22:77531Jegnuoml HermannCHEM QNJYE9061-86-25 08:22:002.1[facility] MwriedkPXQCNPKGEN4491-79-63 08:22:009.7[facility] OjipnezNUHUPNXMQT9579-45-58 08:22:003.07[facility] UxquorhFJPJFYFSDW9014-59-36 08:22:009.0[facility] CFHJTUJZDU1071-09-15 08:22:0028.0[facility] DdudcreIDGGLXPOJF1628-66-07 08:22:00 91.2[facility] KiphwilTWJMXBDQDJ4221-32-67 08:22:00 Test Item Value Reference Range Interpretation Comments MCH (test code = MCH) 29.5 pg 27.0-31.0 [facility] NpgodtyBWHKBADKWK4993-09-77 08:22:0032.3[facility] HermannHEMATOLOGY 2021-04-28 08:22:0018.4[facility] CxyewxlDLSOHEJUIP2855-31-17 08:22:51531Gxiobsvx VihfduyQLGGHTHBMB2164-45-07 08:22:009.0[facility] XmuwcbnNAOEQXWKEL2955-30-42 08:22:0068.0[facility] DpxobqiSUGAWEPRGJ1816-80-92 08:22:0018.1[facility] RSOPXQOYTG6174-48-97 08:22:009.3[facility] NoxvnbzXUXPWRUZZU0299-52-02 08:22:003.6 [facility] KljgkuaHPAHKMVMDD2527-98-84 08:22:001.0[facility] HermannHEMATOLOGY 2021-04-28 08:22:006.6[facility] ZpczhpgBALTGEFOET5974-34-04 08:22:001.7[facility] CdiazutIKTRPVLPWQ6363-77-44 08:22:000.9[facility] JdeaxxcLNHRXWHOOC1903-41-28 08:22:000.3[facility] PgyxnlgNWZHSYEPZS2236-84-40 08:22:000.1[facility] CARDIAC WTPDHMB4268-16-77 08:22:000.03[facility] HermannCHEM UGHQN8589-17-46 08:22:0094[facility]annCHEM TLYKU2683-75-26 08:22:0030[facility]annCHE[facility] HPFLW8744-12-18 08:22:006.29[facility]annCHEM LSFGR4050-05-72 08:22:62971 [facility]CHE[facility] XHDJJ0294-27-83 08:22:003.8[facility] HermannCHEM PANEL 2021-04-28 08:22:52681Llkiohha HermannCHEM XGOJP1960-55-57 08:22:0031[facility]annCHEM AMRJL2028-15-04 08:22:008.4[facility]annCHEM SNGUA2780-35-57 08:22:008.1[facility]annCHEM GVKPC6343-03-34 08:22:002.9[facility]annCHEM XUGDL2856-87-05 08:22:0029[facility]annCHEM SPVCT9008-30-42 08:22:0068 [facility]annCHE[facility] XBYUC0124-05-94 08:22:47132Ytflrnxi HermannCHEM PANEL 2021-04-28 08:22:000.4[facility]annCHEM RJCLV2003-47-42 08:22:009.8[facility]annCHEM OARMK3175-33-82 08:22:00 Test Item Value Reference Range Interpretation Comments B/C Ratio (test code = B/C Ratio) 5 1 6-25 [facility]annCHE[facility] BLUQF3759-91-84 08:22:005.2[facility]annCHEM PANEL 2021-04-28 08:22:00 Test Item Value Reference Range Interpretation Comments A/G Ratio (test code = A/G Ratio) 0.6 1 0.7-1.6 [facility]CHE[facility] TRMJL5762-41-15 08:22:008[facility]annCHEM PANEL 2021-04-28 08:22:27785Ynnwqjbu HermannCHEM CCQEQ8492-63-03 08:22:002.1[facility] FtfxhhtYWJLVISGWO6730-18-96 08:22:009.7[facility] RufkhcsXVJBCPTUDQ2695-31-68 08:22:003.07[facility] YjqgkpeISYKEFQTYD0262-61-17 08:22:009.0[facility] HADKXPSBHQ6458-53-65 08:22:0028.0[facility] OhbycgrNBSJXFNUMG8566-39-09 08:22:00 91.2[facility] YqhiaseZBXCMUKTXO9979-47-94 08:22:00 Test Item Value Reference Range Interpretation Comments MCH (test code = MCH) 29.5 pg 27.0-31.0 [facility] ScpldvjFGLZTENWUX7427-69-50 08:22:0032.3[facility] HermannHEMATOLOGY 2021-04-28 08:22:0018.4[facility] VmdxqpgJOFLPUXMNU4062-04-63 08:22:93210Ujrsftuc UqmipkxAMMYLJDAWX3760-10-10 08:22:009.0[facility] BhzbugdDVZKOKKJFQ0351-01-13 08:22:0068.0[facility] YswkmeuMHVJGUIOCJ2125-71-41 08:22:0018.1[facility] YADQTALFDY0426-91-74 08:22:009.3[facility] PahheyaKXXGLAALIM8730-96-11 08:22:003.6 [facility] VcdfcsvAMALOWBQLV0298-93-66 08:22:001.0[facility]annHEMATOLOGY 2021-04-28 08:22:006.6[facility] AyjskifCCMCAJSBIP3122-74-60 08:22:001.7[facility] VgxknrdZISCLXXXFI0140-59-69 08:22:000.9[facility] RjvsrffINBUXGDXVX4092-27-61 08:22:000.3[facility] LsspyxfXFDNGDRPWB3814-16-93 08:22:000.1[facility]annCHEM BECDV8416-76-54 08:12:0093[facility]annCHEM JFZDO4683-44-76 08:12:0018 [facility]annCHE[facility] ZCLZI6795-14-95 08:12:004.97[facility]annCHEM PANEL 2021-04-07 08:12:68247Yqkhfqtz HermannCHEM SVUZK6122-03-61 08:12:004.1[facility]annCHEM UKXFA3016-37-72 08:12:0098[facility]annCHEM SDMCQ7097-46-21 08:12:0028[facility]annCHEM TRXWS4181-06-47 08:12:0010.1[facility]annCHEM QPMLZ3908-77-92 08:12:008.8[facility]annCHEM BLLOD3593-88-25 08:12:0011 [facility] BomrbawGRGRAPSDDW5089-81-78 08:12:0067.5[facility]annHEMATOLOGY 2021-04-07 08:12:0014.1[facility] UpdptnbRUFELKOYLQ5912-41-52 08:12:0013.1[facility] XectzczGEYQHINESE6113-84-09 08:12:004.7[facility] TdskavhBXIWFSGEPF5098-56-10 08:12:000.6[facility] TgesgnyJVBDAVTEVY8234-63-69 08:12:005.8[facility] BFOZZNXAQD3652-86-79 08:12:001.2[facility] UizmtchBLHETQRGAW5844-39-12 08:12:001.1 [facility] DyteurzLJFCGAMJRQ5925-12-61 08:12:000.4[facility] HermannHEMATOLOGY 2021-04-07 08:12:000.1[facility] QjuwaghBIRYJVEYHO7448-91-17 08:12:008.5[facility] UxfnphxSHPKDCDCKW1088-00-84 08:12:002.54[facility] LhpcuiiWEMRGIQFMV1786-30-75 08:12:007.5[facility] BubcuvzGFONXULQFX8808-10-04 08:12:0022.1[facility] ZEEHNKRVDQ5425-71-84 08:12:0087.1[facility] LddvbymTNDKZKOWKK9323-64-88 08:12:00 Test Item Value Reference Range Interpretation Comments MCH (test code = MCH) 29.5 pg 27.0-31.0 [facility] UwznjbrNOGSLLVZUN1318-34-00 08:12:0033.9[facility]annHEMATOLOGY 2021-04-07 08:12:0016.3[facility] WncnjjkHOZDACEYSN6169-30-22 08:12:45545Bfjkbsii OkkuxpuUKGTCJJUVB5402-77-85 08:12:008.6[facility]annCHEM HQXBA4778-08-61 08:12:0093[facility]annCHEM UXUUN0556-12-54 08:12:0018[facility]annCHEM HANVT8370-56-59 08:12:004.97[facility]annCHEM TNOAQ3671-25-13 08:12:10327 [facility]annCHE[facility] IXLIH2006-20-06 08:12:004.1[facility]annCHEM PANEL 2021-04-07 08:12:0098[facility]annCHEM ZZPOO8261-31-06 08:12:0028[facility]annCHE[facility] PTTWD5357-55-01 08:12:0010.1[facility]annCHE[facility] SVWMA2763-56-98 08:12:008.8[facility]annCHE[facility] HOPKN7003-20-19 08:12:0011[facility] SOMWXRTMRK9034-70-50 08:12:0067.5[facility] IowkohqCJSJJFLFPN3584-83-86 08:12:00 14.1[facility] JqovapmHCOQMPOGTN3669-64-14 08:12:0013.1[facility]annHEMATOLOGY 2021-04-07 08:12:004.7[facility] NjogttdOMRCZMEGYT3948-09-15 08:12:000.6[facility] FhpgcrxINUNXQWDAB2261-21-58 08:12:005.8[facility] LdacxouKKKYURGCRL7411-33-74 08:12:001.2[facility] ZpfvcvrMIZPNZOQFX1167-26-95 08:12:001.1[facility] WJTOCFYDXV2496-96-03 08:12:000.4[facility] MwinwbgCFBSJODPTN5808-73-74 08:12:000.1 [facility] YsdmgyeGFDVEUVOWU6654-22-87 08:12:008.5[facility]annHEMATOLOGY 2021-04-07 08:12:002.54[facility] AnqhakuKYWRDZNXMH1625-57-32 08:12:007.5[facility] NvjfxeaTTKEUBMMTI1225-82-74 08:12:0022.1[facility] RgnexezTGNNFRXUWX5209-29-24 08:12:0087.1[facility] PvekcyuTQAQRKTCKB7178-16-46 08:12:00 Test Item Value Reference Range Interpretation Comments MCH (test code = MCH) 29.5 pg 27.0-31.0 [facility] MbgvpwhICNSGTNYVQ3165-64-76 08:12:0033.9[facility]annHEMATOLOGY 2021-04-07 08:12:0016.3[facility] JucpwsrSLHTYHWBCC1423-01-77 08:12:81670Zcuydply YcxdennLLGVSVWZPZ9333-91-39 08:12:008.6[facility]annCHEM OZEBZ3048-64-12 09:43:0091[facility]annCHE[facility] WCZAP3882-22-96 09:43:0033[facility]annCHEM GGDUG8607-53-36 09:43:007.52[facility]annCHEM GZGZO9371-26-67 09:43:84109 [facility]annCHE[facility] XJNOY9568-62-85 09:43:005.0[facility]annCHEM PANEL 2021-04-06 09:43:0097[facility]annCHE[facility] AXCRG7513-22-07 09:43:0024[facility]annCHE[facility] MPRWY0051-95-69 09:43:0015.0[facility]annCHEM UAQEY1628-03-37 09:43:009.0[facility]annCHE[facility] VJGGU9819-93-32 09:43:007[facility] ENRYEAUJMB9745-85-92 09:43:0070.6[facility] NhvusupENEXILHTGV8834-94-72 09:43:00 10.4[facility] XddqktkEDAVWEVKHZ8166-93-57 09:43:0010.7[facility]annHEMATOLOGY 2021-04-06 09:43:007.5[facility] NlrziipYQQHHSOSPH6399-25-73 09:43:000.8[facility] PdwqnkeFGTJHLMHYW5380-48-73 09:43:006.7[facility] SgivlzoJKHCYOEOBE0944-38-42 09:43:001.0[facility] XptfyffKQXKQGTTLS4981-40-88 09:43:001.0[facility] MFATBYVOBT0062-52-79 09:43:000.7[facility] DknxsqpBQVLPEULDR7536-68-42 09:43:000.1 [facility] EnpixwpUMNCTBROXN8439-35-90 09:43:009.5[facility]annHEMATOLOGY 2021-04-06 09:43:002.50[facility] ZmaqefaLDYLCLQXQH3321-33-32 09:43:007.3[facility] QjlsvwlLAGXCNEVXI0623-96-34 09:43:0021.6[facility] MkmhkmePKXZHHGSKR7756-47-73 09:43:0086.2[facility] PputrrxBBRNZILRDG8835-03-69 09:43:00 Test Item Value Reference Range Interpretation Comments MCH (test code = MCH) 29.3 pg 27.0-31.0 [facility] XngkhsrXUJHVBRVNA8285-13-52 09:43:0033.9[facility]annHEMATOLOGY 2021-04-06 09:43:0016.8[facility] HmqpghxALCDIIYMYC0595-89-18 09:43:90017Qhaszkfv ShrihhwFMSFEOGYWY8550-49-00 09:43:008.3[facility] HermannCHEM XIKAS3514-43-08 09:43:0091[facility]annCHEM HOAWA0390-55-24 09:43:0033[facility]annCHEM GZFCI5544-97-40 09:43:007.52[facility]annCHEM DJBDH4324-71-37 09:43:42879 [facility]annCHE[facility] FVAPC4173-35-04 09:43:005.0[facility]annCHEM PANEL 2021-04-06 09:43:0097[facility]annCHEM MCNSO6800-97-86 09:43:0024[facility]annCHEM TXSVU4900-93-00 09:43:0015.0[facility]annCHE[facility] FJVIU6242-90-69 09:43:009.0[facility]annCHE[facility] SJAEI9180-79-80 09:43:007[facility] XAAOEMTTXT4902-35-96 09:43:0070.6[facility] NdoaakvKVMVLANNHH2225-59-85 09:43:00 10.4[facility] YauneoaGZNWVPYWST1769-11-59 09:43:0010.7[facility]annHEMATOLOGY 2021-04-06 09:43:007.5[facility] DtmyudeNDXQGSQGNX8339-64-35 09:43:000.8[facility] AplgpycDAUOYJZWFD0457-94-71 09:43:006.7[facility] HbkzgejSBLYHNICXQ9900-66-07 09:43:001.0[facility] RhvbwgdMNJHVQYYUG2556-09-93 09:43:001.0[facility] OPCCFCKQUG4730-93-08 09:43:000.7[facility] YjduralGFUIOWNZJE6356-19-96 09:43:000.1 [facility] ScjexroHIAZHLLQET6293-68-64 09:43:009.5[facility]annHEMATOLOGY 2021-04-06 09:43:002.50[facility] WmkbirvXLPFPPMGMS0100-00-70 09:43:007.3[facility] VfxjwncXEEOTXVIWJ0208-20-09 09:43:0021.6[facility] WbrjptsMJHRWHEZYF9294-46-86 09:43:0086.2[facility] VzzfngbVCFFSQJJZH7845-03-61 09:43:00 Test Item Value Reference Range Interpretation Comments MCH (test code = MCH) 29.3 pg 27.0-31.0 [facility] XyhhaakEZLLQFJXIL0264-07-97 09:43:0033.9[facility]annHEMATOLOGY 2021-04-06 09:43:0016.8[facility] WfafyzfCCRXKTOHLI4681-60-47 09:43:32742Banlmfaz FukqrexNXIFKGCHMH9979-64-11 09:43:008.3[facility]annCHEM ARTWT3096-80-48 10:12:14283Epwpivgf HermannCHEM ONIIO2111-61-77 10:12:0019[facility]annCHEM MEDDB9787-50-12 10:12:004.71[facility]annCHEM GIIDM0852-80-98 10:12:25052 [facility]CHE[facility] ZZFQJ3655-37-82 10:12:004.5[facility]annCHEM PANEL 2021-04-05 10:12:0099[facility]annCHEM TGMFR1898-28-72 10:12:0025[facility]annCHEM HEHKH6062-55-90 10:12:0013.5[facility]annCHEM RTDTH0989-04-03 10:12:008.7[facility]annCHEM ZYAKY3698-15-84 10:12:0012[facility] WNAFGUWXRB6170-24-39 10:12:0068.1[facility] FxfkhmdVDXUBOLJLI8538-75-71 10:12:00 11.8[facility] NespdtbGDBVYKKRWT8146-72-55 10:12:0013.1[facility]annHEMATOLOGY 2021-04-05 10:12:006.2[facility] OfkdznmFOSWDWUSQT0170-65-77 10:12:000.8[facility] WeunwlgYQWGNRXRSE3168-93-81 10:12:006.3[facility] BmaqtndEGJJVQRUAX0601-29-73 10:12:001.1[facility] OrvxsrhDQUKIWOFMD4657-00-25 10:12:001.2[facility] RRTLOIDTMP3487-91-73 10:12:000.6[facility] KmzwceyPRKIJGOMGK1139-74-23 10:12:000.1 [facility] DvltuklQNZICNSSEC1439-41-43 10:12:009.2[facility]annHEMATOLOGY 2021-04-05 10:12:002.54[facility] EjbpoxaSLYQOXJFNA8796-41-99 10:12:007.4[facility] VqnloxfSAVJBQJNDS2840-81-43 10:12:0022.0[facility] UgztqlmQDOSUEZNDX7053-35-15 10:12:0086.8[facility] XsnaaykQQNAJSFJYT8431-95-77 10:12:00 Test Item Value Reference Range Interpretation Comments MCH (test code = MCH) 29.3 pg 27.0-31.0 [facility] UnjpgfuSODCPSCRJR2712-62-02 10:12:0033.8[facility]annHEMATOLOGY 2021-04-05 10:12:0016.9[facility] PinujdrAFZNNMOLBM8379-68-65 10:12:18540Tgozvkdr PbaqtmfIWQELYITDH9555-10-29 10:12:008.1[facility]annCHEM VVKGJ0544-44-92 10:12:00744Qrxwdpbn HermannCHEM HWPMH4712-93-96 10:12:0019[facility]annCHEM AQYQO5692-32-22 10:12:004.71[facility]annCHEM AQOQO9979-58-96 10:12:31029 [facility]CHE[facility] YJLOI7163-91-74 10:12:004.5[facility]annCHEM PANEL 2021-04-05 10:12:0099[facility]annCHEM WNPOH6058-24-12 10:12:0025[facility]annCHEM MENFO9838-57-58 10:12:0013.5[facility]annCHEM LJDLE9919-85-52 10:12:008.7[facility]annCHEM VUYAQ0959-41-43 10:12:0012[facility] CKKWYXFUKA4226-75-89 10:12:0068.1[facility] EfbqaeiNUQSUCQKPL2439-21-38 10:12:00 11.8[facility] TvikykpFTRROPELBM9745-65-64 10:12:0013.1[facility] HermannHEMATOLOGY 2021-04-05 10:12:006.2[facility] GwuxuihIHNYXJJHRX6980-89-58 10:12:000.8[facility] QjculgaSPAMSFEHJI2417-42-24 10:12:006.3[facility] StlojnzPEQOVXXHCK4186-44-99 10:12:001.1[facility] CrvxlblHVLGFRWAGL5035-69-56 10:12:001.2[facility] IUHLFXESGF0534-23-66 10:12:000.6[facility] NcoshkzINRUPIIPTV3137-01-21 10:12:000.1 [facility] BogyidbSJZTPMYIDE7130-45-76 10:12:009.2[facility] HermannHEMATOLOGY 2021-04-05 10:12:002.54[facility] KhrfybiLKSFPGGUUW9424-87-69 10:12:007.4[facility] QdaewvxFHBOSGCOLI0639-11-60 10:12:0022.0[facility] EjhusslLDPRFHFNAU2438-46-53 10:12:0086.8[facility] FmwmahtYUSBCYUQAI2774-52-04 10:12:00 Test Item Value Reference Range Interpretation Comments MCH (test code = MCH) 29.3 pg 27.0-31.0 [facility]YSQAOUQOJB4183-18-88 10:12:0033.8[facility] HermannHEMATOLOGY 2021-04-05 10:12:0016.9[facility] DvgnvijGORZBVHXNM3247-07-16 10:12:98579Ddiajpov NobcmtbQABSNPEEFV6320-45-89 10:12:008.1[facility] HermannMOLECULAR DIAGNOSTIC 2021-04-04 18:30:00Positive 8*ABN*(04/04/21 1:30 PM)[facility]annMOLECULAR LGFOMRJYIP9307-34-02 18:30:00Positive 8*ABN*(04/04/21 1:30 PM)[facility] [place] CHEM HVVOU9625-39-45 15:24:001.4[facility] XfgxlkeCEFKIIHJGZ2899-87-39 15:24:00 Test Item Value Reference Range Interpretation Comments Hep Signal to Cut-Off (test code = Hep 0.03 1 Signal to Cut-Off) [facility] EXQDE1485-77-24 15:24:001.4[facility] HermannIMMUNOLOGY 2021-04-04 15:24:00 Test Item Value Reference Range Interpretation Comments Hep Signal to Cut-Off (test code = Hep 0.03 1 Signal to Cut-Off) [facility] AllenFfbligjGYIDGJBDQN6565-75-74 13:43:00 Test Item Value Reference Range Interpretation Comments PTT (test code = PTT) 66.3 s 22.9-35.8 [facility] AllenByypinbIJYMJHTTSR4791-09-19 13:43:00 Test Item Value Reference Range Interpretation Comments PT (test code = PT) 12.8 s 12.0-14.7 [facility] AllenNlnthpdKJLZNNFJJV8557-04-30 13:43:00 Test Item Value Reference Range Interpretation Comments INR (test code = INR) 0.97 1 0.85-1.17 [facility] AllenYpadcpqZEVAOQYRSY3284-00-50 13:43:00 Test Item Value Reference Range Interpretation Comments PTT (test code = PTT) 66.3 s 22.9-35.8 [facility]foibyMCKDSSLNGY3025-31-67 13:43:00 Test Item Value Reference Range Interpretation Comments PT (test code = PT) 12.8 s 12.0-14.7 [facility] AllenBgmhnugIDWJPOSAKS9723-94-41 13:43:00 Test Item Value Reference Range Interpretation Comments INR (test code = INR) 0.97 1 0.85-1.17 [facility]annCHEM URSBT2496-58-14 05:17:002.2M[facility] AliceannCHEM PANEL 2021-04-03 05:17:005.8[facility] HospitalKanchskCNFIKIAQAPMHZ8964-81-44 05:17:00Negative *NA*(04/03/21 12:17 AM)[facility]ZerlgxdPDZVECTYIV2267-00-89 05:17:00 Test Item Value Reference Range Interpretation Comments PTT (test code = PTT) 56.4 s 22.9-35.8 [facility]Interval[facility] MDOMO0915-17-32 05:17:002.2[facility]villeCHE[facility] 2021-04-03 05:17:005.8[facility] CenterFzvyixvVSJJHNPGVPYSY2282-05-03 05:17:00Negative *NA*(04/03/21 12:17 AM)[facility]FlintTaixlkoDIDRUOTVPM5339-64-51 05:17:00 Test Item Value Reference Range Interpretation Comments PTT (test code = PTT) 56.4 s 22.9-35.8 [facility] AllenJrlqkaqCKVVBRAHYB3936-13-29 22:12:00 Test Item Value Reference Range Interpretation Comments PTT (test code = PTT) 50.9 s 22.9-35.8 [facility] AllenKatlizbWXGJBWMBLJ4608-97-03 22:12:00 Test Item Value Reference Range Interpretation Comments PTT (test code = PTT) 50.9 s 22.9-35.8 [facility]annCARDIAC ROQEOVI2780-52-94 12:23:000.44[facility]annHEMATOLOGY 2021-04-02 12:23:00 Test Item Value Reference Range Interpretation Comments PT (test code = PT) 13.8 s 12.0-14.7 [facility] AllenZnabfrwGAJUNCAUZP5021-33-35 12:23:00 Test Item Value Reference Range Interpretation Comments INR (test code = INR) 1.07 1 0.85-1.17 [facility]annCARDIAC WGKXTGR7401-40-08 12:23:000.44[facility]annHEMATOLOGY 2021-04-02 12:23:00 Test Item Value Reference Range Interpretation Comments PT (test code = PT) 13.8 s 12.0-14.7 [facility] KxpvablMTNNJCRXXD5632-07-76 12:23:00 Test Item Value Reference Range Interpretation Comments INR (test code = INR) 1.07 1 0.85-1.17 [facility] ZjkbyfzIHCZHFZQAI4507-60-70 05:21:00 Test Item Value Reference Range Interpretation Comments PTT (test code = PTT) 31.4 s 22.9-35.8 [facility] UfyvapuZLKHYAZCJY3316-95-32 05:21:00 Test Item Value Reference Range Interpretation Comments PT (test code = PT) 14.4 s 12.0-14.7 [facility] YuffrytLSFZIHHILL8129-10-17 05:21:00 Test Item Value Reference Range Interpretation Comments INR (test code = INR) 1.13 1 0.85-1.17 [facility] ZieevkeNVWOLIZTTI2829-36-40 05:21:0013.9[facility]annHEMATOLOGY 2021-04-02 05:21:002.67[facility] XrdpsbqOJAXPRZXJK3883-70-87 05:21:007.7[facility] KbaokocEHTTFUERID8270-70-01 05:21:0022.9[facility] HiuuhviOWTHCLNQTA8800-08-97 05:21:0085.8[facility] BgvbkbuYMIFHGZJBG2474-26-58 05:21:00 Test Item Value Reference Range Interpretation Comments MCH (test code = MCH) 29.0 pg 27.0-31.0 [facility] GtuthclEASSGNQDNZ2621-14-55 05:21:0033.8[facility]annHEMATOLOGY 2021-04-02 05:21:0017.0[facility] TwrqrsgTOWKXXWZRF8084-17-97 05:21:24552Roogovhe OxluwsrHFJUCICIPC9581-20-29 05:21:008.3[facility] NjtssyjWBTDSSISTG4408-17-64 05:21:0085.5[facility] GynobeyGWNQUJUQOU6074-90-17 05:21:005.6[facility] MVTHFTUPHH1698-98-12 05:21:004.4[facility] WckhocrINXEWBOCVZ9649-78-49 05:21:003.6 [facility] FavytrfMNALBVJLKV2040-72-25 05:21:000.9[facility]annHEMATOLOGY 2021-04-02 05:21:0011.9[facility] XfpbrsdBXKKKPFIZB3228-68-98 05:21:000.8[facility] NmlydzdPCYXLGPPNF4070-15-94 05:21:000.6[facility] VnhnjizYOLPPQGCBW9433-08-83 05:21:000.5[facility] YisdeojMSLHGEDPBS3540-23-71 05:21:000.1[facility] HUYXCMWDIY7067-79-72 05:21:00 Test Item Value Reference Range Interpretation Comments PTT (test code = PTT) 31.4 s 22.9-35.8 [facility] YwdjhpyGAJBMGRAOB1926-94-21 05:21:00 Test Item Value Reference Range Interpretation Comments PT (test code = PT) 14.4 s 12.0-14.7 [facility] KghtupoWHSDERTQSA8647-93-54 05:21:00 Test Item Value Reference Range Interpretation Comments INR (test code = INR) 1.13 1 0.85-1.17 [facility] KzhdflbJKLYPNXDFH4340-94-20 05:21:0013.9[facility]annHEMATOLOGY 2021-04-02 05:21:002.67[facility] AfqpeibRVZAOYSFTK0201-17-12 05:21:007.7[facility] TnhpwhaNXLKOVHNVN2645-14-97 05:21:0022.9[facility] CusdwfeONLQKITYYU6476-69-48 05:21:0085.8[facility] MbdvzcpVBCGJQGQZX7629-92-66 05:21:00 Test Item Value Reference Range Interpretation Comments MCH (test code = MCH) 29.0 pg 27.0-31.0 [facility] BhbiauiMDPMIILPQW5045-97-38 05:21:0033.8[facility]annHEMATOLOGY 2021-04-02 05:21:0017.0[facility] SpvqphzRLADMSYZTI3984-03-15 05:21:50516Unnqqtyx BesyrgkWNRQXLKEJU5958-39-37 05:21:008.3[facility] IfyiutfPNPQUDQAFQ0253-63-68 05:21:0085.5[facility] RcsnadiOBHGZLOWQE5904-23-80 05:21:005.6[facility] ZXQVAIWPJS7153-59-85 05:21:004.4[facility] FvfkwmcIXFGNAPSJG5887-58-63 05:21:003.6 [facility] EeovtdjYWYGMJLHFJ8310-20-34 05:21:000.9[facility]annHEMATOLOGY 2021-04-02 05:21:0011.9[facility] MftphyxLXMSSMXJDC8007-91-22 05:21:000.8[facility] TjowcngBEKOSXFNIN8254-93-27 05:21:000.6[facility] YnjqnpqSECDJHPWIV1591-59-96 05:21:000.5[facility] IahxigmDHSJJHVIHS0133-07-91 05:21:000.1[facility] CARDIAC QMTTLVJ6243-96-38 01:43:000.82[facility]annCARDIAC YJJUGXX4816-20-58 01:43:69353Nqgldqoi HermannCARDIAC BVWIEHB4541-50-96 01:43:004.6[facility] CARDIAC XSYLHHS5754-52-11 01:43:00 Test Item Value Reference Range Interpretation Comments CK MB Index (test 2.3 1 See_Comment [Automate d message] The code = CK MB Index) system w [employer] generated this result transmit rosalba reference range : <=2.5. The reference range was not used to interpr et this result as martha l/abnormal. [facility]annCARDIAC PWWSHNJ5956-62-89 01:43:000.82[facility]annCARDIAC BOFTSOC3924-88-16 01:43:69994Wfqexbcb HermannCARDIAC XWPHEIF0192-34-32 01:43:00 4.6[facility]annCARDIAC CZPBKLB1348-75-43 01:43:00 Test Item Value Reference Range Interpretation Comments CK MB Index (test 2.3 1 See_Comment [Automate d message] The code = CK MB Index) system w [employer] generated this result transmit rosalba reference range : <=2.5. The reference range was not used to interpr et this result as martha l/abnormal. [facility] NORJHLM1423-98-02 08:46:00Negative (04/01/21 3:46 AM) [facility] JQUZUNG1740-88-55 08:46:00Negative (04/01/21 3:46 AM) [facility] GZNUULD8367-75-13 08:38:00Product available 5(04/01/21 3:38 AM)[facility] UMLJARP3659-43-69 08:38:00Product available 5(04/01/21 3:38 AM)[facility] MbpcicdIQDVZIZAUZ2091-93-52 08:23:006.3[facility] VprjgfoQODPEZLYXM6047-55-43 08:23:0019.0[facility] RjddnsjKDOLQPQUMM9213-47-82 08:23:006.3[facility] GayzjwsGFVCMKRYZL8611-27-33 08:23:0019.0[facility]annCHEM ZFCBX2250-29-83 07:50:0087[facility]annCHEM NUAQR0750-09-08 07:50:0041 [facility]annCHEM SUNXN6513-30-20 07:50:009.14[facility]annCHEM PANEL 2021-04-01 07:50:65509Sdwnpanv HermannCHEM IVUQL5505-18-42 07:50:004.4[facility]annCHEM THSTS6420-82-03 07:50:05189Pfreheov HermannCHEM XRMZS7071-91-80 07:50:0025[facility]annCHEM OLXUO5870-60-60 07:50:008.3[facility]annCHEM LAXCG0853-64-99 07:50:006.6[facility]annCHEM DBFNR7629-24-75 07:50:002.4 [facility]annCHEM GXLDW9700-07-98 07:50:0014[facility]annCHEM PANEL 2021-04-01 07:50:0034[facility]annCHEM KMDLS2128-24-81 07:50:29618Ppguvbxv HermannCHEM WWAYZ5445-10-27 07:50:000.6[facility]annCHEM SRDUH3250-80-19 07:50:0015.4[facility]annCHEM JUYOS8745-19-40 07:50:00 Test Item Value Reference Range Interpretation Comments B/C Ratio (test code = B/C Ratio) 4 1 6-25 [facility]annCHEM QVNVI6157-61-31 07:50:004.2[facility]annCHEM PANEL 2021-04-01 07:50:00 Test Item Value Reference Range Interpretation Comments A/G Ratio (test code = A/G Ratio) 0.6 1 0.7-1.6 [facility]annCHEM HCALM8959-73-52 07:50:005[facility]annCHEM PANEL 2021-04-01 07:50:001.9[facility]annCHEM HIWSZ0236-44-07 07:50:008.2[facility] MqudwwnHQZBBJZONO9006-02-85 07:50:0021.8[facility] ZygysrkLUMIMVEHRP3793-09-10 07:50:002.08[facility] ByqflnhLYMRAFETVO5167-51-49 07:50:006.0[facility] CMQYCWNVMQ0327-12-40 07:50:0018.5[facility] WftbtnwOPXKLMUDCK9457-66-21 07:50:00 89.0[facility] CdkqwkfJNLNGBAFCW3772-48-99 07:50:00 Test Item Value Reference Range Interpretation Comments MCH (test code = MCH) 28.7 pg 27.0-31.0 [facility] LcdbeqlLFZZFQQCHI7498-31-57 07:50:0032.3[facility]annHEMATOLOGY 2021-04-01 07:50:0016.1[facility] QpwtdsiLDJNSYBQRU0818-79-49 07:50:67980Bcylsmwt NvvigayWFQDYRNIKJ7087-05-08 07:50:008.7[facility] HmovjjxPUVGFWDVEL0020-13-11 07:50:0090.7[facility] LbpkkztPPCGWJSUSM3517-68-94 07:50:005.0[facility] TQUNQIILZV9126-30-25 07:50:003.2[facility] McommqwSSUSCBWVJQ9814-02-32 07:50:000.7 [facility] YjgtrdrQSRUMPEHVD5444-38-92 07:50:000.4[facility]annHEMATOLOGY 2021-04-01 07:50:0019.8[facility] KdejatoVJUZVCARLU3255-55-35 07:50:001.1[facility] FyrxuflIWIHAGOFBA2981-75-28 07:50:000.7[facility] XhvwhztZNFWBOZKHO1181-83-78 07:50:000.1[facility] NupyrixOYWQEZJNQD1321-82-37 07:50:000.1[facility] HermannCHEM TLHDT3039-94-89 07:50:0087[facility]annCHEM KERRI4692-10-11 07:50:0041 [facility]annCHEM GIRUU0528-41-31 07:50:009.14[facility]annCHEM PANEL 2021-04-01 07:50:18790Vpigxceg HermannCHEM HWKHA2290-77-35 07:50:004.4[facility]annCHEM JANNK7118-35-07 07:50:01874Uclsxqip HermannCHEM HVUGB7870-00-67 07:50:0025[facility]annCHEM IMHAL7113-78-32 07:50:008.3[facility]annCHEM HCSRG4184-94-32 07:50:006.6[facility]annCHEM VLEVU1480-41-42 07:50:002.4 [facility]annCHEM NRCWU5271-61-67 07:50:0014[facility]annCHEM PANEL 2021-04-01 07:50:0034[facility]annCHEM BFLZE3562-02-65 07:50:41665Iixocjmt HermannCHEM XSIWB0151-96-13 07:50:000.6[facility]annCHEM TDAUF6280-68-74 07:50:0015.4[facility]annCHEM JTDHA6126-37-86 07:50:00 Test Item Value Reference Range Interpretation Comments B/C Ratio (test code = B/C Ratio) 4 1 6-25 [facility]annCHEM XZVTJ1769-60-07 07:50:004.2[facility]annCHEM PANEL 2021-04-01 07:50:00 Test Item Value Reference Range Interpretation Comments A/G Ratio (test code = A/G Ratio) 0.6 1 0.7-1.6 [facility]annCHEM HOLPW3045-80-22 07:50:005[facility]annCHEM PANEL 2021-04-01 07:50:001.9[facility] HermannCHEM CKBDM9242-41-60 07:50:008.2[facility] VbkkmxrGLROHIHBBT9923-45-07 07:50:0021.8[facility] SkunufyXXLIHFVERW6789-51-38 07:50:002.08[facility] QdpviywPAXXUCWTFM3978-88-69 07:50:006.0[facility] QOAMZJWLTQ0160-94-78 07:50:0018.5[facility] EuqngkzTQQFIXVZMS3560-19-95 07:50:00 89.0[facility] SqsttesZWWLDXZZIX2487-84-37 07:50:00 Test Item Value Reference Range Interpretation Comments MCH (test code = MCH) 28.7 pg 27.0-31.0 [facility] WxiiwffFVNBOODXHV6222-45-43 07:50:0032.3[facility]annHEMATOLOGY 2021-04-01 07:50:0016.1[facility] VwdlwnaXBNSNWGLJG7941-40-37 07:50:28551Ljqaavwo EmpsmqqOSVFRGWGGP0148-35-93 07:50:008.7[facility] SlyosinJXJNGTCIYP9329-09-97 07:50:0090.7[facility] TiyabwqBBUIEFJODB0861-32-17 07:50:005.0[facility] TCSUVRROUR5941-15-16 07:50:003.2[facility] GmycqaxGLQHBKNHOS1937-55-38 07:50:000.7 [facility] EdvpjiaTPVADQJPKG4790-54-33 07:50:000.4[facility]annHEMATOLOGY 2021-04-01 07:50:0019.8[facility] FhtmtaqZVEBOBJFPH2337-60-01 07:50:001.1[facility] PcfvrpaWGHHCFHTPK1070-13-21 07:50:000.7[facility] XxhwxqiEUTEDHNGPP5766-18-64 07:50:000.1[facility] RilhelnXFCLWSFGKO4767-20-36 07:50:000.1[facility] BACTERIAL - CFMAULGB3436-75-96 13:21:00Negative (03/31/21 8:21 AM)[facility] WisijsyVMXEJPMNJY8126-69-49 13:21:00Negative *NA*(03/31/21 8:21 AM)[facility] HermannBACTERIAL - UJSHOYVY9935-71-32 13:21:00Negative (03/31/21 8:21 AM)[facility] NsxtdycKTKRYSPHDC9506-99-74 13:21:00Negative *NA*(03/31/21 8:21 AM)[facility] ZwtilaaXZZNYCBFZM8119-20-77 08:07:00Not Detected (03/31/21 3:07 AM)[facility] GzvabhlNNGMJORNHC3757-79-55 08:07:00Not Detected (03/31/21 3:07 AM)[facility] HermannCARDIAC RCAXQPU2589-43-63 07:59:13293Ndshhplo HermannCARDIAC ENZYMES 2021-03-31 07:59:000.12[facility] HermannCHEM HUREA4642-23-89 07:59:46456Srixumcy HermannCHEM YTWEM3414-14-76 07:59:0090[facility] HermannCHEM YNRZZ8911-48-50 07:59:0016.70[facility]annCHEM QLQVJ9161-80-96 07:59:00850Jpeymbnc [facility] CHEM BQACX6248-74-44 07:59:004.6[facility] HermannCHEM ZWVCH9490-24-14 07:59:0097 [facility]annCHEM NVLYP7604-09-80 07:59:0019[facility]annCHEM PANEL 2021-03-31 07:59:007.1[facility] HermannCHEM CHYDN5749-29-80 07:59:008.0[facility] HermannCHEM RCSCA3689-28-72 07:59:002.5[facility] HermannCHEM UVAWH7368-66-82 07:59:0019[facility]annCHEM UZEHZ6596-92-39 07:59:0049[facility]annCHEM MTVID2097-77-08 07:59:24516Zocenlnl HermannCHEM OIVFL2748-79-85 07:59:000.8 [facility]annCHEM FGEAW8073-48-38 07:59:0025.6[facility]annCHEM PANEL 2021-03-31 07:59:00 Test Item Value Reference Range Interpretation Comments B/C Ratio (test code = B/C Ratio) 5 1 6-25 [facility]annCHEM RCOFI0806-26-25 07:59:005.5[facility]annCHEM PANEL 2021-03-31 07:59:00 Test Item Value Reference Range Interpretation Comments A/G Ratio (test code = A/G Ratio) 0.5 1 0.7-1.6 [facility]annCHEM EZPFD6189-31-59 07:59:003[facility]annCHEM PANEL 2021-03-31 07:59:002.0[facility]annCHEM BBRTB2909-79-08 07:59:001.9[facility]annCARDIAC FUAPJRR8121-04-38 07:59:02002Sdnulwqf HermannCARDIAC ENZYMES 2021-03-31 07:59:000.12[facility]annCHEM NZXJT3232-97-08 07:59:52495Uspgccjs HermannCHEM JRJET0183-80-20 07:59:0090[facility]annCHEM ZNQBP7265-95-88 07:59:0016.70[facility]annCHEM MRIYB8587-70-68 07:59:56560Jeatkuwn [place] CHEM ANFQN8002-74-19 07:59:004.6[facility]annCHEM EVDVH9632-73-46 07:59:0097 [facility]annCHEM MISVW5707-71-94 07:59:0019[facility]annCHEM PANEL 2021-03-31 07:59:007.1[facility]annCHEM RJHON0515-43-51 07:59:008.0[facility]annCHEM UTZWW8736-49-12 07:59:002.5[facility]annCHEM CGGLQ9775-95-52 07:59:0019[facility]annCHEM VKNVS1433-61-65 07:59:0049[facility]annCHEM POQNC4624-23-38 07:59:01064Erbnebkq HermannCHEM MSMOM9309-11-50 07:59:000.8 [facility]annCHEM QTMOE2502-33-24 07:59:0025.6[facility]annCHEM PANEL 2021-03-31 07:59:00 Test Item Value Reference Range Interpretation Comments B/C Ratio (test code = B/C Ratio) 5 1 6-25 [facility]annCHEM PQDQJ9600-28-67 07:59:005.5[facility]annCHEM PANEL 2021-03-31 07:59:00 Test Item Value Reference Range Interpretation Comments A/G Ratio (test code = A/G Ratio) 0.5 1 0.7-1.6 [facility]annCHEM BLCOM6829-87-48 07:59:003[facility]annCHEM PANEL 2021-03-31 07:59:002.0[facility]annCHEM PRKCZ3103-09-82 07:59:001.9[facility]annCHEM ULXDG7910-34-46 07:41:009.9[facility] HmtllizYOCZSTEWOH6418-28-02 07:41:0018.9[facility] AxnothqQQLMSNNQZN1233-51-78 07:41:002.69[facility] ZXRYZGFVQK8515-66-61 07:41:0089.7[facility] PtyrckhJSIRYOPTPR4861-77-08 07:41:00 Test Item Value Reference Range Interpretation Comments MCH (test code = MCH) 29.1 pg 27.0-31.0 [facility] TxzgifjAGPMLPFBUX2779-74-82 07:41:0032.4[facility]annHEMATOLOGY 2021-03-31 07:41:0016.1[facility] BywabmgYWFAGXIYYP1291-20-99 07:41:91324Mcsijpjf MoqauhxQGVUUKTJRW0629-19-67 07:41:009.0[facility] BslaxbhCTZXHKHNVH0767-75-43 07:41:0077.5[facility] UrpqifjVFFCHDXVHI0402-65-57 07:41:0013.8[facility] NWJNSXRRZS1034-72-73 07:41:005.8[facility] BiftqclVBUEWCDFEN5351-77-69 07:41:002.3 [facility] DjkcvoiMVBJRFNEZF7116-42-09 07:41:000.6[facility]annHEMATOLOGY 2021-03-31 07:41:0014.6[facility] GobzryhFXJAMKAGFS2684-05-88 07:41:002.6[facility] AgirdscMLCDXQUICD6982-38-49 07:41:001.1[facility] XyhfwmpHZKWBCWSFK6711-06-22 07:41:000.4[facility] CklpxwxROVOCWJJOF9263-43-21 07:41:000.1[facility] HermannCHEM RYHPR3988-00-79 07:41:009.9[facility] DgbiehgBWLDYOHCWL4154-50-15 07:41:0018.9 [facility] LbjopenABHYODGPCC7487-97-26 07:41:002.69[facility]annHEMATOLOGY 2021-03-31 07:41:0089.7[facility] TsykylaNNVGINNNLW5947-24-36 07:41:00 Test Item Value Reference Range Interpretation Comments MCH (test code = MCH) 29.1 pg 27.0-31.0 [facility] MpvwtohVFVJMNLUCB3165-03-48 07:41:0032.4[facility]annHEMATOLOGY 2021-03-31 07:41:0016.1[facility] HxcjsccECPDHIHFLP8163-64-45 07:41:99884Ahrzgtxr EkbquiaYWKZLLEYCT7140-32-43 07:41:009.0[facility] WrbgombQTKNIDPXPN6506-82-30 07:41:0077.5[facility] UlifplwQYGCSTVVRN6523-66-44 07:41:0013.8[facility] ISGMMKJGBP7947-26-20 07:41:005.8[facility] BhksdcqMVVUFIFOXU2727-92-94 07:41:002.3 [facility] UtcftdgVNWHOFWCQW8006-56-23 07:41:000.6[facility] HermannHEMATOLOGY 2021-03-31 07:41:0014.6[facility] AiemckuVINTVRNXIA1291-52-52 07:41:002.6[facility] SqfnzyaCABZICXAFU7326-76-98 07:41:001.1[facility] OoilyzqNQCHCVXTLP2981-54-84 07:41:000.4[facility] DrxnytcIMTYEYKNEF7886-27-82 07:41:000.1[facility] CARDIAC YJIYVCZ3535-68-77 13:33:000.03[facility] HermannCARDIAC DWGMRMV9117-21-94 13:33:952223Fuwyctru HermannCHEM HPZKQ3296-90-82 13:33:89966Ztgekqbw [facility]annCHEM NWYPQ9794-96-27 13:33:0089[facility]annCHEM YCMTV0407-59-75 13:33:0016.40 [facility]annCHEM ELAGY2980-91-50 13:33:33290Fafsooja HermannCHEM PANEL 2021-03-30 13:33:005.2[facility] HermannCHEM QGHUC2894-31-21 13:33:0097[facility]annCHEM ASGCJ9841-14-09 13:33:0019[facility]annCHEM VDJKP3750-91-11 13:33:007.3[facility] HermannCHEM VGUTP6785-75-29 13:33:008.1[facility] HermannCHEM LZVSR4890-88-25 13:33:002.6[facility] HermannCHEM MVOFE9400-60-40 13:33:0017 [facility]annCHEM MIYQD5418-11-74 13:33:0044[facility]annCHEM PANEL 2021-03-30 13:33:64522Ffhaefvr HermannCHEM IAFUB6200-57-28 13:33:000.8[facility] HermannCHEM HOHZW5861-62-21 13:33:0024.2[facility] HermannCHEM UGLZL1743-28-39 13:33:00 Test Item Value Reference Range Interpretation Comments B/C Ratio (test code = B/C Ratio) 5 1 6-25 [facility]annCHEM HQOKK7965-05-07 13:33:005.5[facility] HermannCHEM PANEL 2021-03-30 13:33:00 Test Item Value Reference Range Interpretation Comments A/G Ratio (test code = A/G Ratio) 0.5 1 0.7-1.6 [facility]annCHEM AKUJJ6902-66-71 13:33:003[facility]annCHEM PANEL 2021-03-30 13:33:001.9[facility] HhbcmaoJUMIKHSEXL8589-00-47 13:33:0014.5[facility] KvjnohdVOSSQMZOAH5276-49-41 13:33:002.58[facility] XsrvmzzZDVNCUNZFO8031-33-29 13:33:007.6[facility] KljfjbnCFSOBTDAZG8100-44-98 13:33:0023.3[facility] RZKOLWVMVD2272-06-44 13:33:0090.2[facility] TacimniRJMBQGTBWU1223-70-84 13:33:00 Test Item Value Reference Range Interpretation Comments MCH (test code = MCH) 29.3 pg 27.0-31.0 [facility] WvfkwgwLOTLPAKXNT2808-09-94 13:33:0032.5[facility] HermannHEMATOLOGY 2021-03-30 13:33:0016.4[facility] ZkxwatxCXVMLDSZSJ1361-29-70 13:33:50717Eliwtsts OplsvpiXCWUMDPPWY3640-13-47 13:33:009.2[facility] XesabaoRYKCHGUUMG3916-61-99 13:33:0087.2[facility] PzpbgipBJEWIAAVAS4714-98-78 13:33:006.3[facility] FPPPTXSWQG3724-92-36 13:33:003.1[facility] VqqhuzoAUCDPQYBXU4339-69-20 13:33:002.6 [facility] VxqtapuLWELHLNVGP2843-15-44 13:33:000.8[facility]annHEMATOLOGY 2021-03-30 13:33:0012.6[facility] QhdxmlbIFUWORJZZC9810-71-99 13:33:000.9[facility] WngqpciBINBKUUTBL8718-93-88 13:33:000.5[facility] WcmyvluEKXTPIQEJK9842-77-00 13:33:000.4[facility] CghhvslLHNDOMKJZF5018-51-79 13:33:000.1[facility] CARDIAC DAYQQMH9318-74-38 13:33:000.03[facility]annCARDIAC FMNLOHF8674-94-71 13:33:197645Lxogzrck HermannCHEM UOSQH5969-80-01 13:33:73491Tnekbsqw [facility]annCHE[facility] GIUYE6947-21-21 13:33:0089[facility]annCHEM PNTLR2763-04-46 13:33:0016.40 [facility]annCHE[facility] MIBAH2799-27-87 13:33:11936Kszqbzwu [facility]annCHEM PANEL 2021-03-30 13:33:005.2[facility]annCHEM REJJX7679-91-76 13:33:0097[facility]annCHEM MPQJH7211-65-25 13:33:0019[facility]annCHEM MQGCM2356-79-29 13:33:007.3[facility]annCHEM ICCTC2958-75-47 13:33:008.1[facility]annCHEM LUPLJ6018-84-81 13:33:002.6[facility]annCHEM OKIYN9102-13-66 13:33:0017 [facility]annCHE[facility] YKRRN5062-58-60 13:33:0044[facility]annCHEM PANEL 2021-03-30 13:33:56290Meqmrtvv [facility]annCHE[facility] FLPEF1294-30-08 13:33:000.8[facility]annCHEM ZBHQT8436-62-55 13:33:0024.2[facility]annCHEM PHUXW7340-71-82 13:33:00 Test Item Value Reference Range Interpretation Comments B/C Ratio (test code = B/C Ratio) 5 1 6-25 [facility] HermannCHEM BLFYS4365-83-98 13:33:005.5[facility]annCHEM PANEL 2021-03-30 13:33:00 Test Item Value Reference Range Interpretation Comments A/G Ratio (test code = A/G Ratio) 0.5 1 0.7-1.6 [facility]annCHE[facility] YGKYQ4120-60-58 13:33:003[facility]annCHEM PANEL 2021-03-30 13:33:001.9[facility] WqstlvqJQNMQTWVFU2190-86-64 13:33:0014.5[facility] EgzjwphVPAPEZOIHN2652-13-33 13:33:002.58[facility] GjnvfihPSIFKVVSLV3709-19-82 13:33:007.6[facility] WjlzyzwLFBPVSPQBQ2996-35-61 13:33:0023.3[facility] VHOKPGHQHN8324-22-10 13:33:0090.2[facility] TphzfabVGZURNTLHF4058-52-61 13:33:00 Test Item Value Reference Range Interpretation Comments MCH (test code = MCH) 29.3 pg 27.0-31.0 [facility] ZiwgmzjBXWFVHALXE7180-49-68 13:33:0032.5[facility]annHEMATOLOGY 2021-03-30 13:33:0016.4[facility] FxocjtrQNJVMPFRKS7430-02-92 13:33:58090Qjigedxq IwfnzjuYEOPYEELOM7991-74-93 13:33:009.2[facility] BpenjflGXUPPFKQFH3706-73-37 13:33:0087.2[facility] NkhdjjcZUJMZYRWZX5259-41-50 13:33:006.3[facility] APFLHJBPQY8718-92-66 13:33:003.1[facility] EqitmocBVTGQFKNGM0301-62-56 13:33:002.6 [facility] LopefjeETTMZSLGMH3674-83-18 13:33:000.8[facility]annHEMATOLOGY 2021-03-30 13:33:0012.6[facility] BreegnpOWSZLBVNPV2617-50-77 13:33:000.9[facility] ZjdbrxsHMGKDLMEBN2106-94-26 13:33:000.5[facility] QitucciBGJVLSKOIH5728-20-09 13:33:000.4[facility] EruxlesJVJSKJNOGI4119-35-71 13:33:000.1[facility] HermannCHEM LPYQF2585-21-92 07:52:007.2[facility]annCHEM YOCAZ1520-43-91 07:52:002.1 [facility]annCHEM VYSRF2159-43-44 07:52:77747Mynybwdi HermannCHEM PANEL 2021-03-13 07:52:0041[facility]annCHEM RLDHC0554-74-78 07:52:0012.80[facility]annCHEM MXPGD8845-04-39 07:52:51433Prdsnkez [facility]annCHEM BGLWT3836-57-29 07:52:003.8[facility] HermannCHEM DQGLZ6910-51-78 07:52:0099[facility]annCHEM NANHP8098-86-48 07:52:0027[facility]annCHEM SOHXC7810-77-60 07:52:0014.8 [facility]annCHEM WLIGP2244-54-62 07:52:007.7[facility] HermannCHEM PANEL 2021-03-13 07:52:00 Test Item Value Reference Range Interpretation Comments B/C Ratio (test code = B/C Ratio) 3 1 6-25 [facility]annCHE[facility] BALRX6856-62-59 07:52:006.6[facility] HermannCHEM PANEL 2021-03-13 07:52:001.9[facility]annCHEM YYSTB6785-72-38 07:52:004.7[facility] HermannCHEM JAZDL8702-95-11 07:52:00 Test Item Value Reference Range Interpretation Comments A/G Ratio (test code = A/G Ratio) 0.4 1 0.7-1.6 [facility]annCHE[facility] SJQZC0724-73-38 07:52:0011[facility]annCHEM PANEL 2021-03-13 07:52:0041[facility]annCHEM RRRFP3194-11-49 07:52:50155Qjafesqi [facility]CHE[facility] UYVEK3030-45-07 07:52:000.9[facility]annCHEM AOGTC4179-54-73 07:52:004[facility] ZybhfjvRNQDOZHOGO6778-49-92 07:52:0069.5[facility] SCQFZJBMCX8202-17-71 07:52:0013.1[facility] MumzqklMXLJLOJEEJ9609-03-15 07:52:00 9.7[facility] EgjibfqOEKHGAKGYK4690-15-56 07:52:005.8[facility]annHEMATOLOGY 2021-03-13 07:52:001.9[facility] CcvaelfITBDXHAQYQ9752-33-95 07:52:005.3[facility] BhdxfzmUANVYDZAJL4913-63-49 07:52:001.0[facility] PnmhfenUJFNOHDSCG4897-23-10 07:52:000.7[facility] AywowagTJNUTQDXQO3890-43-23 07:52:000.4[facility] XXNICBVMRA8379-34-23 07:52:000.1[facility] AdkbhdzMUSUAYVLJA5758-28-65 07:52:007.6 [facility] TxtorjqGEEHOWDHUC9099-81-96 07:52:002.63[facility]annHEMATOLOGY 2021-03-13 07:52:007.6[facility] EiqhnctCLAVNESMMN9874-89-58 07:52:0023.5[facility] NaolkfsVTCGHLGWLG8998-02-32 07:52:0089.2[facility] CpquawbLPTRVVMZJZ2068-73-54 07:52:00 Test Item Value Reference Range Interpretation Comments MCH (test code = MCH) 29.0 pg 27.0-31.0 [facility] AlgcbiuKHNLFUFNFN9346-15-34 07:52:0032.5[facility]annHEMATOLOGY 2021-03-13 07:52:0015.5[facility] FoychwhOZEGILHWLO3281-41-99 07:52:64930Shqwgeko LuvvpruJIQDMEOEKN8110-83-06 07:52:007.9[facility] HermannCHEM YKLBX0548-18-10 07:52:007.2[facility] HermannCHEM MCWTQ6687-00-73 07:52:002.1[facility] HermannCHEM FIAES0805-73-12 07:52:15948Wlubions [facility]annCHE[facility] XXPWV6454-34-38 07:52:0041 [facility]annCHE[facility] HYITD0257-40-71 07:52:0012.80[facility] HermannCHEM PANEL 2021-03-13 07:52:02180Yxwnnwgq HermannCHEM QGJQH6504-98-63 07:52:003.8[facility]CHEM ZIWWW8171-79-93 07:52:0099[facility]annCHEM ILQQP4236-73-33 07:52:0027[facility] QGTYD8829-61-61 07:52:0014.8[facility]CHE[facility] IXTPV7966-31-97 07:52:007.7[facility]CHE[facility] NXYHV1540-67-33 07:52:00 Test Item Value Reference Range Interpretation Comments B/C Ratio (test code = B/C Ratio) 3 1 6-25 [facility] RYGQD2797-08-88 07:52:006.6[facility]annCHEM PANEL 2021-03-13 07:52:001.9[facility] VQZHH4486-11-87 07:52:004.7[facility] PPXFP0566-57-97 07:52:00 Test Item Value Reference Range Interpretation Comments A/G Ratio (test code = A/G Ratio) 0.4 1 0.7-1.6 [facility]CHE[facility] VNGCT0247-70-87 07:52:0011[facility]annCHEM PANEL 2021-03-13 07:52:0041[facility]CHE[facility] ESIRZ7820-24-82 07:52:11046Nvfltefz HermannCHEM QBDCN1345-03-03 07:52:000.9[facility]CHE[facility] NUFRC3069-90-65 07:52:004[facility] TgshuakHQPQDGFQJP5747-65-45 07:52:0069.5[facility] JBXNFMGPFC6614-76-46 07:52:0013.1[facility] PufqejvNIYJXXCYLJ0181-91-02 07:52:00 9.7[facility] KwjzctuHIDLEVIECF1742-15-42 07:52:005.8[facility]annHEMATOLOGY 2021-03-13 07:52:001.9[facility] XtqmmrhCYVKDXDGAS3992-97-63 07:52:005.3[facility] FgytbwiIVYDOLUYGI8992-89-53 07:52:001.0[facility] KghakbqYEQKSQNLTC6064-60-23 07:52:000.7[facility] EllrylbJLDCZJTQAI9782-63-30 07:52:000.4[facility] VNNUGMFVMI9887-77-50 07:52:000.1[facility] InvryedJMFKINBWBK2326-69-40 07:52:007.6 [facility] BpuaxhuRRNOVRSDOE1041-81-09 07:52:002.63[facility]annHEMATOLOGY 2021-03-13 07:52:007.6[facility] MxqmewdBOLKTSGDIC2652-95-11 07:52:0023.5[facility] AlbqlquLUULVGRRTG1676-95-97 07:52:0089.2[facility] YwaxtscKUAHXIQXUR2102-52-31 07:52:00 Test Item Value Reference Range Interpretation Comments MCH (test code = MCH) 29.0 pg 27.0-31.0 [facility] DzznnhgTBOLXQIEXL6069-03-61 07:52:0032.5[facility]annHEMATOLOGY 2021-03-13 07:52:0015.5[facility] HnbphunLGLMLTSLRP9567-05-09 07:52:95392Xydcrysz BqpgyjgTANTKQCAGD2369-12-77 07:52:007.9[facility] VxmgmzlKWGDMISEDZ1410-08-26 11:00:00Negative *NA*(03/12/21 6:00 AM)[facility] YlrlkadLTFFRSGKVP4975-29-42 11:00:00Negative *NA*(03/12/21 6:00 AM)[facility]annBACTERIAL - SEROLOGY 2021-03-12 08:31:00Negative (03/12/21 3:31 AM)[facility]annCARDIAC ENZYMES 2021-03-12 08:31:000.22[facility]annCHEM NRAPE3080-97-55 08:31:20374Aycibhvu HermannCHEM XWDQY3035-80-69 08:31:0071[facility] EMPUI2349-86-65 08:31:0018.80[facility]annCHE[facility] LQAFY1054-26-84 08:31:72731Mjafjfqh [facility] CHEM NJZEI2099-26-39 08:31:006.2[facility]annCHEM OYDCS2914-62-49 08:31:0098 [facility] MMLXL4921-05-36 08:31:0021[facility]annCHEM PANEL 2021-03-12 08:31:0023.2[facility]annCHE[facility] DDPQC4611-59-76 08:31:007.0[facility]annCHE[facility] DICOZ4816-89-86 08:31:002[facility]CHE[facility] NDURT2806-50-62 08:31:001.3[facility] XnvrvqoLVCTLBZDMG3203-79-35 08:31:0016.0[facility] GDCIGGBZRM9311-44-49 08:31:002.90[facility] QjwzmbzBTOUXCMSKZ4653-53-93 08:31:00 8.6[facility] NlpbtymZQJDADOYAQ1836-17-64 08:31:0026.1[facility]annHEMATOLOGY 2021-03-12 08:31:0089.8[facility] HxwrvuwCETUQRYFLC6374-60-30 08:31:00 Test Item Value Reference Range Interpretation Comments MCH (test code = MCH) 29.5 pg 27.0-31.0 [facility] MizfcngSIQZPXVFMW1677-16-86 08:31:0032.9[facility]annHEMATOLOGY 2021-03-12 08:31:0015.2[facility] KusugkhYLNZDANHIK4697-82-00 08:31:71925[place] VwfwnwaAJUTXTXFDC7166-46-67 08:31:008.2[facility] UoiouruPQNIVCAZLD5110-33-79 08:31:0086.3[facility] JmoahgoIMOQDHFYRH1995-16-96 08:31:004.3[facility] CCLZCDQNUC7003-39-92 08:31:008.1[facility] QmufgkwDPAXDCQAHY1712-55-59 08:31:000.4 [facility] QkzqkawINQFLXGPEC9583-86-92 08:31:000.9[facility]annHEMATOLOGY 2021-03-12 08:31:0013.8[facility] QjsbdekYQZOXXNAHV2328-55-57 08:31:000.7[facility] AijjevuXQPSPGXYKA7134-12-69 08:31:001.3[facility] MgbzeieUPDRYMYIEP5834-82-28 08:31:000.1[facility] PpmrnwzLGXOABSSEZ4065-87-96 08:31:000.1[facility] BACTERIAL - QIISRCPT6466-67-53 08:31:00Negative (03/12/21 3:31 AM)[facility] CARDIAC IYTPMJV2803-06-91 08:31:000.22[facility]annCHEM TOLDV4201-46-25 08:31:52898Fljcbmqm HermannCHEM BCUCT3084-09-79 08:31:0071[facility]annCHEM JVXZK2256-93-44 08:31:0018.80[facility]annCHE[facility] BMXIV7126-63-55 08:31:57635 [facility]CHE[facility] DOIBJ6935-04-67 08:31:006.2[facility]annCHEM PANEL 2021-03-12 08:31:0098[facility]annCHE[facility] KGUEZ5963-97-86 08:31:0021[facility]CHE[facility] ASIKX7552-31-50 08:31:0023.2[facility]annCHE[facility] LWXMZ8675-36-32 08:31:007.0[facility]annCHE[facility] GTZSB5965-03-18 08:31:002[facility]CHE[facility] GFJSC6133-39-33 08:31:001.3[facility] PjuewizVILPJTAIIZ5490-84-73 08:31:0016.0 [facility] WdtekgmSEAPJQVYDQ7354-54-04 08:31:002.90[facility]annHEMATOLOGY 2021-03-12 08:31:008.6[facility] PzktiksJJVRKEYCPB8207-12-48 08:31:0026.1[facility] PcmlwptPVWETKWOWY9102-42-73 08:31:0089.8[facility] GcmduyiVHTCHGASXK3299-70-20 08:31:00 Test Item Value Reference Range Interpretation Comments MCH (test code = MCH) 29.5 pg 27.0-31.0 [facility] HyqljwaXZDNVNFQDV2242-83-45 08:31:0032.9[facility] HermannHEMATOLOGY 2021-03-12 08:31:0015.2[facility] PqzxizaMQSQEXEDEP7498-61-80 08:31:46993Vlgtbgwe PbgnorfROPWYBJDDG9222-24-96 08:31:008.2[facility] LqltmzsSKGBCBUPXY8944-49-61 08:31:0086.3[facility] UbyzfupFCASVGBLSL2828-86-49 08:31:004.3[facility] HMIHJKWNMK1603-15-83 08:31:008.1[facility] BslvncmQZJSCTXYER1920-78-24 08:31:000.4 [facility] VfrspahXGZNKULCZC8099-94-34 08:31:000.9[facility]annHEMATOLOGY 2021-03-12 08:31:0013.8[facility] YzblmyiRWJEBCRLEI8146-88-35 08:31:000.7[facility] KxafblcIBZIVCHGCQ8200-02-16 08:31:001.3[facility] TuaklbuGRFTQWZVOI6938-13-67 08:31:000.1[facility] FywcgxcZFSMSAOHOK3481-44-69 08:31:000.1[facility] CARDIAC QKBMHHT0545-97-73 06:17:00>5000[facility] HermannPARATHYROID PROFILE 2021-03-12 06:17:000.77[facility] HermannPARATHYROID TYDIAMH3985-58-52 06:17:00 0.72[facility]annCARDIAC ZFGDRRD8838-85-01 06:17:00>5000[facility] PARATHYROID OMDMUHZ7836-73-69 06:17:000.77[facility] HermannPARATHYROID PROFILE 2021-03-12 06:17:000.72[facility]annCHEM HWAEK3378-44-29 05:07:004.1[facility]annCHEM SVLOE9238-64-30 05:07:001.15[facility]annCHE[facility] KXSLN0340-35-69 05:07:004.1[facility]annCHEM XKHQX0609-88-97 05:07:001.15[facility] RBKIAYJAHBVYK0887-51-33 03:27:35Negative *NA*(03/11/21 10:27 PM)[facility] CDGIYZJNIMHNU3110-79-23 03:27:35Negative *NA*(03/11/21 10:27 PM)[facility] UZUAIKBPWB6436-71-94 02:36:00Not Detected (03/11/21 9:36 PM)[facility] UELBGVFZZH0696-42-24 02:36:00Not Detected (03/11/21 9:36 PM)[facility] DKRTVJCSUZ8405-47-49 02:29:009.1[facility] OagaxsqOVDBUNDCZK5633-12-22 02:29:00 28.2[facility] ShribngPSWUMKOJNG4955-20-26 02:29:0089.6[facility]annHEMATOLOGY 2021-03-12 02:29:00 Test Item Value Reference Range Interpretation Comments MCH (test code = MCH) 29.1 pg 27.0-31.0 [facility] AgoeqolXWQJTCPMVY6421-38-29 02:29:0032.5[facility] HermannHEMATOLOGY 2021-03-12 02:29:0015.6[facility] LslgjfoCOERYAHIHE9175-19-94 02:29:01234Iqktzaiz DqzgdfwMFXBYGYVQW3930-69-68 02:29:008.5[facility] CrjrknfXURWPMAFOY6839-89-35 02:29:0063.2[facility] BaubbmmKLCFWZUGYM8153-94-22 02:29:0018.8[facility] YQMMFWXMLG8594-30-14 02:29:008.3[facility] KpdsyrlJABYEJQQSF4960-60-98 02:29:007.5 [facility] RlxiijqFWGXCXRJXO1661-00-93 02:29:002.2[facility]annHEMATOLOGY 2021-03-12 02:29:005.9[facility] KzrimitHGGGCSCPOI6142-44-77 02:29:001.8[facility] LftetxuJETJJGXTOA4167-98-50 02:29:000.8[facility] XdeyvypCKOWVVXZUQ0736-34-62 02:29:000.7[facility] WpryzffWMLAUJDMHO3111-53-89 02:29:000.2[facility] CARDIAC ZRTKRDH4993-51-78 02:29:000.03[facility]annCHEM ZQTTG5271-86-07 02:29:0099[facility]annCHEM EFUQZ4901-49-79 02:29:0068[facility]annCHEM VGIXD5230-28-70 02:29:0018.50[facility]annCHEM JTUIH9496-31-20 02:29:27233 [facility]CHE[facility] SBMSG0658-41-95 02:29:004.7[facility]annCHEM PANEL 2021-03-12 02:29:0097[facility]annCHEM VYYLD4794-59-66 02:29:0023[facility]annCHEM HTAYZ2373-31-65 02:29:0021.7[facility]annCHE[facility] VAUXI5772-10-09 02:29:006.9[facility]annCHEM EFSEV7048-86-83 02:29:00 Test Item Value Reference Range Interpretation Comments B/C Ratio (test code = B/C Ratio) 4 1 6-25 [facility]CHE[facility] OTMDN6884-37-79 02:29:007.8[facility]annCHEM PANEL 2021-03-12 02:29:002.2[facility]annCHEM ZLMOI4330-39-71 02:29:005.6[facility]annCHEM UPAMA6122-81-57 02:29:00 Test Item Value Reference Range Interpretation Comments A/G Ratio (test code = A/G Ratio) 0.4 1 0.7-1.6 [facility]CHE[facility] PKIIC0366-35-00 02:29:0014[facility]annCHEM PANEL 2021-03-12 02:29:0049[facility]annCHEM RHDNI9845-93-58 02:29:11943Ynaqppim HermannCHEM EFIJI7674-92-35 02:29:001.5[facility]annCHE[facility] IOJFW5989-92-93 02:29:002[facility] NuxkjufZUGHVPMMIV6751-88-29 02:29:009.4[facility] VIULOGREHQ7539-54-33 02:29:003.14[facility] BmmksbvOPSICTSLAU6168-87-43 02:29:00 9.1[facility] PdtcmcaZRNPUNDMKW2446-31-42 02:29:0028.2[facility]annHEMATOLOGY 2021-03-12 02:29:0089.6[facility] WwyxmzpKPLDCXHMEC7764-57-94 02:29:00 Test Item Value Reference Range Interpretation Comments MCH (test code = MCH) 29.1 pg 27.0-31.0 [facility] QshxvogRNTCUABBNO7771-17-09 02:29:0032.5[facility]annHEMATOLOGY 2021-03-12 02:29:0015.6[facility] GxzagmgWZEIGLXJDS7845-85-97 02:29:58426Ezipaiql BfzwwqlZZYEYFJURI7210-53-84 02:29:008.5[facility] ShchbxnZCHEYRHSME5676-82-68 02:29:0063.2[facility] OnyppfjXYFQOVRDIV1319-65-56 02:29:0018.8[facility] TVZZEUMNRF6264-27-32 02:29:008.3[facility] VczcntqEYJKRBFQBT2525-82-96 02:29:007.5 [facility] CpzzumcLSYZDYEOIJ8073-80-53 02:29:002.2[facility]annHEMATOLOGY 2021-03-12 02:29:005.9[facility] AmocgwjWLCRVDILJZ5774-97-32 02:29:001.8[facility] CzdmjayTLDMITUZCB6858-79-32 02:29:000.8[facility] ZloeklhFKRTAJDBCY2386-37-29 02:29:000.7[facility] IcrwimlPQXQHDETKD8474-25-65 02:29:000.2[facility] CARDIAC CYTGQZM4491-21-93 02:29:000.03[facility]annCHEM FPIRM9116-87-80 02:29:0099[facility]annCHEM GXMRB5229-87-32 02:29:0068[facility]annCHEM HSDJF0274-10-97 02:29:0018.50[facility]annCHEM HYVBI0907-16-60 02:29:84133 [facility]CHE[facility] PPYAJ3137-15-56 02:29:004.7[facility]annCHEM PANEL 2021-03-12 02:29:0097[facility]annCHEM KROVU2749-98-90 02:29:0023[facility]annCHEM LOTRU5259-84-52 02:29:0021.7[facility]annCHEM NOKOE0706-91-88 02:29:006.9[facility]annCHEM YYQAJ0350-39-18 02:29:00 Test Item Value Reference Range Interpretation Comments B/C Ratio (test code = B/C Ratio) 4 1 6-25 [facility]CHE[facility] WXFDW8902-39-45 02:29:007.8[facility]annCHEM PANEL 2021-03-12 02:29:002.2[facility]annCHEM EWTKN5065-41-28 02:29:005.6[facility]annCHEM QGLXU2557-65-81 02:29:00 Test Item Value Reference Range Interpretation Comments A/G Ratio (test code = A/G Ratio) 0.4 1 0.7-1.6 [facility] KWBDO3330-81-91 02:29:0014Mem[facility] HermannCHEM PANEL 2021-03-12 02:29:0049[facility] FTMPM0198-30-37 02:29:22890Uvkieanu HermannCHEM PEDOD0695-14-00 02:29:001.5[facility]annCHEM MMQSD3573-24-21 02:29:002[facility] JfizovfTFJJUCUBCL2294-51-07 02:29:009.4[facility] LDGFUBZXYS8408-92-38 02:29:003.14[facility]O SQDS0962-03-57 07:33:00 Test Item Value Reference Range Interpretation Comments WHITE BLOOD CELL (test code = 6.5 K/MM3 3.8-9.8 N WBC) RED BLOOD CELL (test code = 2.89 M/MM3 3.58-4.97 L RBC) HEMOGLOBIN (test code = HGB) 8.2 G/DL 11.2-14.9 L HEMATOCRIT (test code = HCT) 27.5 % 33.2-43.5 L MEAN CELL VOLUME (test code = 95 fL 80.7-99.1 N MCV) MEAN CELL HGB (test code = MCH) 28.4 pg 27.0-34.1 N MEAN CELL HGB CONCETRATION 29.8 % 32.2-35.7 L (test code = MCHC) RED CELL DISTRIBUTION WIDTH 13.8 % 12.1-15.2 N (test code = RDW) PLATELET COUNT (test code = 199 K/MM3 129-368 N PLT) NEUTROPHIL # (test code = NT#) 3.22 K/mm3 2.0-7.6 N IMMATURE GRANULOCYTE # (test 0.09 x10 3/uL 0-0.03 H code = IG#) LYMPHOCYTE # (test code = LY#) 1.45 K/mm3 1.0-3.8 N MONOCYTE # (test code = MO#) 0.93 K/mm3 0.1-0.8 H EOSINOPHIL # (test code = EO#) 0.74 K/mm3 0.0-0.2 H BASOPHIL # (test code = BA#) 0.04 K/mm3 0.0-0.2 N NUCLEATED RBC # (test code = 0.00 K/mm3 0.0-0.1 N NRBC#) WBC [id number] 07:33:00 Test Item Value Reference Range Interpretation Comments RBC MORPHOLOGY REQUIRED (test code NORMAL = RBCM) TOTAL CELLS COUNTED (test code = 130 #CELLS TCC) SEGMENTED NEUTROPHILS (test code = 46.5 % 36.2-73.8 N SEG) BAND NEUTROPHIL (test code = BAND) 2.6 % 0-10 N LYMPHOCYTE (test code = LYMPH) 22.8 % 12.9-45.1 N ATYPICAL LYMPH (test code = 0.0 % 0-0 N ALYMPH) MONOCYTE (test code = MON) 14.0 % 0-11 H EOSINOPHIL (test code = EOS) 11.4 % 1-7 H BASOPHIL (test code = BASO) 1.8 % 0-2 MYELOCYTE (test code = MYELO) 0.9 % 0-0 H PLATELET ESTIMATE (test code = ADEQUATE ADEQUATE PLTEST) PLATELET MORPHOLOGY (test code = NORMAL NORMAL PLTMORPH) BASIC METABOLIC [id number] 06:27:00 Test Item Value Reference Range Interpretation Comments SODIUM (test code = 136 MMOL/L 137-145 L NA) POTASSIUM (test code = 4.3 MMOL/L 3.5-5.1 N K) CHLORIDE (test code = 93 MMOL/L 98-107 L CL) CARBON DIOXIDE (test 24 MMOL/L 22-30 N code = CO2) ANION GAP (test code = 23 MMOL/L 14-24 N GAP) GLUCOSE (test code = 85 MG/DL 74-106 GLU) BLOOD UREA NITROGEN 60 MG/DL 7-17 H (test code = BUN) GLOMERULAR FILTRATION 2 Report ing units: RATE (test code = GFR) ml/mi n/1.73 m2 (Modified MDRD Formula)Referen ce Range: > or = 6 0 ml/min/1.73 m2 CREATININE (test code 20.00 MG/DL 0.52-1.04 H = CREAT) CALCIUM (test code = 7.3 MG/DL 8.4-10.2 L CA) BASIC METABOLIC [id number] 06:23:00 Test Item Value Reference Range Interpretation Comments SODIUM (test code = NA) 136 MMOL/L 137-145 L POTASSIUM (test code = K) 4.3 MMOL/L 3.5-5.1 N CHLORIDE (test code = CL) 93 MMOL/L 98-107 L CARBON DIOXIDE (test code = CO2) 24 MMOL/L 22-30 N ANION GAP (test code = GAP) 23 MMOL/L 14-24 N GLUCOSE (test code = GLU) 85 MG/DL 74-106 BLOOD UREA NITROGEN (test code = 60 MG/DL 7-17 H BUN) GLOMERULAR FILTRATION RATE (test code = GFR) CREATININE (test code = CREAT) MG/DL 0.52-1.04 CALCIUM (test code = CA) 7.3 MG/DL 8.4-10.2 L CBC W/O [id number] 06:01:00 Test Item Value Reference Range Interpretation Comments WHITE BLOOD CELL (test code = 6.5 K/MM3 3.8-9.8 N WBC) RED BLOOD CELL (test code = 2.89 M/MM3 3.58-4.97 L RBC) HEMOGLOBIN (test code = HGB) 8.2 G/DL 11.2-14.9 L HEMATOCRIT (test code = HCT) 27.5 % 33.2-43.5 L MEAN CELL VOLUME (test code = 95 fL 80.7-99.1 N MCV) MEAN CELL HGB (test code = MCH) 28.4 pg 27.0-34.1 N MEAN CELL HGB CONCETRATION 29.8 % 32.2-35.7 L (test code = MCHC) RED CELL DISTRIBUTION WIDTH 13.8 % 12.1-15.2 N (test code = RDW) PLATELET COUNT (test code = 199 K/MM3 129-368 N PLT) NEUTROPHIL # (test code = NT#) 3.22 K/mm3 2.0-7.6 N IMMATURE GRANULOCYTE # (test 0.09 x10 3/uL 0-0.03 H code = IG#) LYMPHOCYTE # (test code = LY#) 1.45 K/mm3 1.0-3.8 N MONOCYTE # (test code = MO#) 0.93 K/mm3 0.1-0.8 H EOSINOPHIL # (test code = EO#) 0.74 K/mm3 0.0-0.2 H BASOPHIL # (test code = BA#) 0.04 K/mm3 0.0-0.2 N NUCLEATED RBC # (test code = 0.00 K/mm3 0.0-0.1 N NRBC#) WBC [id number] 06:01:00 Test Item Value Reference Range Interpretation Comments RBC MORPHOLOGY REQUIRED (test code = RBCM) TOTAL CELLS COUNTED (test code = TCC) #CELLS SEGMENTED NEUTROPHILS (test code = % 36.2-73.8 SEG) LYMPHOCYTE (test code = LYMPH) % 12.9-45.1 MONOCYTE (test code = MON) % 0-11 PLATELET ESTIMATE (test code = ADEQUATE PLTEST) PLATELET MORPHOLOGY (test code = NORMAL PLTMORPH) CBC W/AUTO [id number] 06:01:00 Test Item Value Reference Range Interpretation Comments WHITE BLOOD CELL (test code = 6.5 K/MM3 3.8-9.8 N WBC) RED BLOOD CELL (test code = 2.89 M/MM3 3.58-4.97 L RBC) HEMOGLOBIN (test code = HGB) 8.2 G/DL 11.2-14.9 L HEMATOCRIT (test code = HCT) 27.5 % 33.2-43.5 L MEAN CELL VOLUME (test code = 95 fL 80.7-99.1 N MCV) MEAN CELL HGB (test code = MCH) 28.4 pg 27.0-34.1 N MEAN CELL HGB CONCETRATION 29.8 % 32.2-35.7 L (test code = MCHC) RED CELL DISTRIBUTION WIDTH 13.8 % 12.1-15.2 N (test code = RDW) PLATELET COUNT (test code = 199 K/MM3 129-368 N PLT) MEAN PLATELET VOLUME (test code 11.3 fl 7.4-10.4 H = MPV) NEUTROPHIL % (test code = NT%) 49.8 % 43-75 N IMMATURE GRANULOCYTE % (test 1.4 % 0.0-2.0 N code = IG%) LYMPHOCYTE % (test code = LY%) 22.4 % 14-44 N MONOCYTE % (test code = MO%) 14.4 % 4-13 H EOSINOPHIL % (test code = EO%) 11.4 % 0-6 H BASOPHIL % (test code = BA%) 0.6 % 0-2 N NUCLEATED RBC % (test code = 0.0 % 0-1.0 N NRBC%) NEUTROPHIL # (test code = NT#) 3.22 K/mm3 2.0-7.6 N IMMATURE GRANULOCYTE # (test 0.09 x10 3/uL 0-0.03 H code = IG#) LYMPHOCYTE # (test code = LY#) 1.45 K/mm3 1.0-3.8 N MONOCYTE # (test code = MO#) 0.93 K/mm3 0.1-0.8 H EOSINOPHIL # (test code = EO#) 0.74 K/mm3 0.0-0.2 H BASOPHIL # (test code = BA#) 0.04 K/mm3 0.0-0.2 N NUCLEATED RBC # (test code = 0.00 K/mm3 0.0-0.1 N NRBC#) WBC [id number] 06:01:00 Test Item Value Reference Range Interpretation Comments RBC MORPHOLOGY REQUIRED (test code = RBCM) TOTAL CELLS COUNTED (test code = TCC) #CELLS SEGMENTED NEUTROPHILS (test code = % 36.2-73.8 SEG) LYMPHOCYTE (test code = LYMPH) % 12.9-45.1 MONOCYTE (test code = MON) % 0-11 PLATELET ESTIMATE (test code = ADEQUATE PLTEST) PLATELET MORPHOLOGY (test code = NORMAL PLTMORPH) CBC W/O [id number] 12:28:00 Test Item Value Reference Range Interpretation Comments WHITE BLOOD CELL (test code = 5.3 K/MM3 3.8-9.8 N WBC) RED BLOOD CELL (test code = 2.77 M/MM3 3.58-4.97 L RBC) HEMOGLOBIN (test code = HGB) 8.0 G/DL 11.2-14.9 L HEMATOCRIT (test code = HCT) 26.2 % 33.2-43.5 L MEAN CELL VOLUME (test code = 95 fL 80.7-99.1 N MCV) MEAN CELL HGB (test code = MCH) 28.9 pg 27.0-34.1 N MEAN CELL HGB CONCETRATION 30.5 % 32.2-35.7 L (test code = MCHC) RED CELL DISTRIBUTION WIDTH 14.2 % 12.1-15.2 N (test code = RDW) PLATELET COUNT (test code = 172 K/MM3 129-368 N PLT) NEUTROPHIL # (test code = NT#) 2.73 K/mm3 2.0-7.6 N IMMATURE GRANULOCYTE # (test 0.10 x10 3/uL 0-0.03 H code = IG#) LYMPHOCYTE # (test code = LY#) 1.13 K/mm3 1.0-3.8 N MONOCYTE # (test code = MO#) 0.63 K/mm3 0.1-0.8 N EOSINOPHIL # (test code = EO#) 0.70 K/mm3 0.0-0.2 H BASOPHIL # (test code = BA#) 0.03 K/mm3 0.0-0.2 N NUCLEATED RBC # (test code = 0.00 K/mm3 0.0-0.1 N NRBC#) WBC [id number] 12:28:00 Test Item Value Reference Range Interpretation Comments RBC MORPHOLOGY REQUIRED (test code ABNORMAL = RBCM) TOTAL CELLS COUNTED (test code = 130 #CELLS TCC) SEGMENTED NEUTROPHILS (test code = 44.2 % 36.2-73.8 N SEG) BAND NEUTROPHIL (test code = BAND) 4.2 % 0-10 N LYMPHOCYTE (test code = LYMPH) 18.3 % 12.9-45.1 N ATYPICAL LYMPH (test code = 5.8 % 0-0 H ALYMPH) MONOCYTE (test code = MON) 10.0 % 0-11 N EOSINOPHIL (test code = EOS) 15.9 % 1-7 H BASOPHIL (test code = BASO) 0.8 % 0-2 N MYELOCYTE (test code = MYELO) 0.8 % 0-0 H POIKILOCYTOSIS (test code = POIK) FEW NONE ANISOCYTOSIS (test code = ANISO) SLIGHT NONE ROULEAUX (test code = ROU) MODERATE NONE CRENATED CELLS (test code = CREN) FEW NONE PLATELET ESTIMATE (test code = ADEQUATE ADEQUATE PLTEST) PLATELET MORPHOLOGY (test code = NORMAL NORMAL PLTMORPH) BASIC METABOLIC [id number] 10:06:00 Test Item Value Reference Range Interpretation Comments SODIUM (test code = 136 MMOL/L 137-145 L NA) POTASSIUM (test code = 3.7 MMOL/L 3.5-5.1 N K) CHLORIDE (test code = 94 MMOL/L 98-107 L CL) CARBON DIOXIDE (test 25 MMOL/L 22-30 N code = CO2) ANION GAP (test code = 21 MMOL/L 14-24 N GAP) GLUCOSE (test code = 125 MG/DL 74-106 H GLU) BLOOD UREA NITROGEN 62 MG/DL 7-17 H (test code = BUN) GLOMERULAR FILTRATION 2 Report ing units: RATE (test code = GFR) ml/mi n/1.73 m2 (Modified MDRD Formula)Referen ce Range: > or = 6 0 ml/min/1.73 m2 CREATININE (test code 19.70 MG/DL 0.52-1.04 H = CREAT) CALCIUM (test code = 7.3 MG/DL 8.4-10.2 L CA) BASIC METABOLIC [id number] 09:34:00 Test Item Value Reference Range Interpretation Comments SODIUM (test code = NA) 136 MMOL/L 137-145 L POTASSIUM (test code = K) 3.7 MMOL/L 3.5-5.1 N CHLORIDE (test code = CL) 94 MMOL/L 98-107 L CARBON DIOXIDE (test code = CO2) 25 MMOL/L 22-30 N ANION GAP (test code = GAP) 21 MMOL/L 14-24 N GLUCOSE (test code = GLU) 125 MG/DL 74-106 H BLOOD UREA NITROGEN (test code = 62 MG/DL 7-17 H BUN) GLOMERULAR FILTRATION RATE (test code = GFR) CREATININE (test code = CREAT) MG/DL 0.52-1.04 CALCIUM (test code = CA) 7.3 MG/DL 8.4-10.2 L CBC W/O [id number] 09:15:00 Test Item Value Reference Range Interpretation Comments WHITE BLOOD CELL (test code = 5.3 K/MM3 3.8-9.8 N WBC) RED BLOOD CELL (test code = 2.77 M/MM3 3.58-4.97 L RBC) HEMOGLOBIN (test code = HGB) 8.0 G/DL 11.2-14.9 L HEMATOCRIT (test code = HCT) 26.2 % 33.2-43.5 L MEAN CELL VOLUME (test code = 95 fL 80.7-99.1 N MCV) MEAN CELL HGB (test code = MCH) 28.9 pg 27.0-34.1 N MEAN CELL HGB CONCETRATION 30.5 % 32.2-35.7 L (test code = MCHC) RED CELL DISTRIBUTION WIDTH 14.2 % 12.1-15.2 N (test code = RDW) PLATELET COUNT (test code = 172 K/MM3 129-368 N PLT) NEUTROPHIL # (test code = NT#) 2.73 K/mm3 2.0-7.6 N IMMATURE GRANULOCYTE # (test 0.10 x10 3/uL 0-0.03 H code = IG#) LYMPHOCYTE # (test code = LY#) 1.13 K/mm3 1.0-3.8 N MONOCYTE # (test code = MO#) 0.63 K/mm3 0.1-0.8 N EOSINOPHIL # (test code = EO#) 0.70 K/mm3 0.0-0.2 H BASOPHIL # (test code = BA#) 0.03 K/mm3 0.0-0.2 N NUCLEATED RBC # (test code = 0.00 K/mm3 0.0-0.1 N NRBC#) WBC [id number] 09:15:00 Test Item Value Reference Range Interpretation Comments RBC MORPHOLOGY REQUIRED (test code = RBCM) TOTAL CELLS COUNTED (test code = TCC) #CELLS SEGMENTED NEUTROPHILS (test code = % 36.2-73.8 SEG) LYMPHOCYTE (test code = LYMPH) % 12.9-45.1 MONOCYTE (test code = MON) % 0-11 PLATELET ESTIMATE (test code = ADEQUATE PLTEST) PLATELET MORPHOLOGY (test code = NORMAL PLTMORPH) CBC W/AUTO [id number] 09:15:00 Test Item Value Reference Range Interpretation Comments WHITE BLOOD CELL (test code = 5.3 K/MM3 3.8-9.8 N WBC) RED BLOOD CELL (test code = 2.77 M/MM3 3.58-4.97 L RBC) HEMOGLOBIN (test code = HGB) 8.0 G/DL 11.2-14.9 L HEMATOCRIT (test code = HCT) 26.2 % 33.2-43.5 L MEAN CELL VOLUME (test code = 95 fL 80.7-99.1 N MCV) MEAN CELL HGB (test code = MCH) 28.9 pg 27.0-34.1 N MEAN CELL HGB CONCETRATION 30.5 % 32.2-35.7 L (test code = MCHC) RED CELL DISTRIBUTION WIDTH 14.2 % 12.1-15.2 N (test code = RDW) PLATELET COUNT (test code = 172 K/MM3 129-368 N PLT) MEAN PLATELET VOLUME (test code 11.4 fl 7.4-10.4 H = MPV) NEUTROPHIL % (test code = NT%) 51.3 % 43-75 N IMMATURE GRANULOCYTE % (test 1.9 % 0.0-2.0 N code = IG%) LYMPHOCYTE % (test code = LY%) 21.2 % 14-44 N MONOCYTE % (test code = MO%) 11.8 % 4-13 N EOSINOPHIL % (test code = EO%) 13.2 % 0-6 H BASOPHIL % (test code = BA%) 0.6 % 0-2 N NUCLEATED RBC % (test code = 0.0 % 0-1.0 N NRBC%) NEUTROPHIL # (test code = NT#) 2.73 K/mm3 2.0-7.6 N IMMATURE GRANULOCYTE # (test 0.10 x10 3/uL 0-0.03 H code = IG#) LYMPHOCYTE # (test code = LY#) 1.13 K/mm3 1.0-3.8 N MONOCYTE # (test code = MO#) 0.63 K/mm3 0.1-0.8 N EOSINOPHIL # (test code = EO#) 0.70 K/mm3 0.0-0.2 H BASOPHIL # (test code = BA#) 0.03 K/mm3 0.0-0.2 N NUCLEATED RBC # (test code = 0.00 K/mm3 0.0-0.1 N NRBC#) WBC [id number] 09:15:00 Test Item Value Reference Range Interpretation Comments RBC MORPHOLOGY REQUIRED (test code = RBCM) TOTAL CELLS COUNTED (test code = TCC) #CELLS SEGMENTED NEUTROPHILS (test code = % 36.2-73.8 SEG) LYMPHOCYTE (test code = LYMPH) % 12.9-45.1 MONOCYTE (test code = MON) % 0-11 PLATELET ESTIMATE (test code = ADEQUATE PLTEST) PLATELET MORPHOLOGY (test code = NORMAL PLTMORPH) HGB [id number] 19:54:00 Test Item Value Reference Range Interpretation Comments HEMOGLOBIN (test code = HGB) 8.0 G/DL 11.2-14.9 L HEMATOCRIT (test code = HCT) 25.6 % 33.2-43.5 L Comments to Router Machine Operator: POST TRANSFUSIONCBC W/O [id number] 14:26:00 Test Item Value Reference Range Interpretation Comments WHITE BLOOD CELL (test 6.0 K/MM3 3.8-9.8 N code = WBC) RED BLOOD CELL (test 2.26 M/MM3 3.58-4.97 L code = RBC) HEMOGLOBIN (test code 6.5 G/DL 11.2-14.9 LL CALLED TO = HGB) PARI S& READBACK ON 02/28/21 AT 115 8 BY Maryanne Casanova HEMATOCRIT (test code 21.5 % 33.2-43.5 L = HCT) MEAN CELL VOLUME (test 95 fL 80.7-99.1 N code = MCV) MEAN CELL HGB (test 28.8 pg 27.0-34.1 N code = MCH) MEAN CELL HGB 30.2 % 32.2-35.7 L CONCETRATION (test code = MCHC) RED CELL DISTRIBUTION 14.2 % 12.1-15.2 N WIDTH (test code = RDW) PLATELET COUNT (test 168 K/MM3 129-368 N code = PLT) NEUTROPHIL # (test 2.82 K/mm3 2.0-7.6 N code = NT#) IMMATURE GRANULOCYTE # 0.11 x10 3/uL 0-0.03 H (test code = IG#) LYMPHOCYTE # (test 1.36 K/mm3 1.0-3.8 N code = LY#) MONOCYTE # (test code 0.97 K/mm3 0.1-0.8 H = MO#) EOSINOPHIL # (test 0.70 K/mm3 0.0-0.2 H code = EO#) BASOPHIL # (test code 0.02 K/mm3 0.0-0.2 N = BA#) NUCLEATED RBC # (test 0.00 K/mm3 0.0-0.1 N code = NRBC#) DIFFERENTIAL [id number] 14:26:00 Test Item Value Reference Range Interpretation Comments RBC MORPHOLOGY REQUIRED (test code = NORMAL RBCM) POIKILOCYTOSIS (test code = POIK) FEW NONE PLATELET ESTIMATE (test code = ADEQUATE ADEQUATE PLTEST) PLATELET MORPHOLOGY (test code = NORMAL NORMAL PLTMORPH) WBC [id number] 14:26:00 Test Item Value Reference Range Interpretation Comments TOTAL CELLS COUNTED (test code = 130 #CELLS TCC) SEGMENTED NEUTROPHILS (test code = 60.7 % 36.2-73.8 N SEG) BAND NEUTROPHIL (test code = BAND) 1.8 % 0-10 N LYMPHOCYTE (test code = LYMPH) 19.6 % 12.9-45.1 N ATYPICAL LYMPH (test code = 0.0 % 0-0 N ALYMPH) MONOCYTE (test code = MON) 12.5 % 0-11 H EOSINOPHIL (test code = EOS) 4.5 % 1-7 N MYELOCYTE (test code = MYELO) 0.9 % 0-0 H [id number] 12:49:00 Test Item Value Reference Range Interpretation Comments ALBUMIN (test code = ALB) 2.5 G/DL 3.5-5.0 L CBC W/O [id number] 11:58:00 Test Item Value Reference Range Interpretation Comments WHITE BLOOD CELL (test 6.0 K/MM3 3.8-9.8 N code = WBC) RED BLOOD CELL (test 2.26 M/MM3 3.58-4.97 L code = RBC) HEMOGLOBIN (test code 6.5 G/DL 11.2-14.9 LL CALLED TO = HGB) PARI S& READBACK ON 02/28/21 AT 115 8 BY Maryanne Casanova HEMATOCRIT (test code 21.5 % 33.2-43.5 L = HCT) MEAN CELL VOLUME (test 95 fL 80.7-99.1 N code = MCV) MEAN CELL HGB (test 28.8 pg 27.0-34.1 N code = MCH) MEAN CELL HGB 30.2 % 32.2-35.7 L CONCETRATION (test code = MCHC) RED CELL DISTRIBUTION 14.2 % 12.1-15.2 N WIDTH (test code = RDW) PLATELET COUNT (test 168 K/MM3 129-368 N code = PLT) NEUTROPHIL # (test 2.82 K/mm3 2.0-7.6 N code = NT#) IMMATURE GRANULOCYTE # 0.11 x10 3/uL 0-0.03 H (test code = IG#) LYMPHOCYTE # (test 1.36 K/mm3 1.0-3.8 N code = LY#) MONOCYTE # (test code 0.97 K/mm3 0.1-0.8 H = MO#) EOSINOPHIL # (test 0.70 K/mm3 0.0-0.2 H code = EO#) BASOPHIL # (test code 0.02 K/mm3 0.0-0.2 N = BA#) NUCLEATED RBC # (test 0.00 K/mm3 0.0-0.1 N code = NRBC#) DIFFERENTIAL [id number] 11:58:00 Test Item Value Reference Range Interpretation Comments RBC MORPHOLOGY REQUIRED (test code = RBCM) PLATELET ESTIMATE (test code = PLTEST) ADEQUATE PLATELET MORPHOLOGY (test code = NORMAL PLTMORPH) WBC [id number] 11:58:00 Test Item Value Reference Range Interpretation Comments TOTAL CELLS COUNTED (test code = TCC) #CELLS SEGMENTED NEUTROPHILS (test code = % 36.2-73.8 SEG) LYMPHOCYTE (test code = LYMPH) % 12.9-45.1 MONOCYTE (test code = MON) % 0-11 CBC W/AUTO [id number] 11:58:00 Test Item Value Reference Range Interpretation Comments WHITE BLOOD CELL (test 6.0 K/MM3 3.8-9.8 N code = WBC) RED BLOOD CELL (test 2.26 M/MM3 3.58-4.97 L code = RBC) HEMOGLOBIN (test code 6.5 G/DL 11.2-14.9 LL CALLED TO = HGB) PARI S& READBACK ON 02/28/21 AT 115 8 BY Maryanne Casanova HEMATOCRIT (test code 21.5 % 33.2-43.5 L = HCT) MEAN CELL VOLUME (test 95 fL 80.7-99.1 N code = MCV) MEAN CELL HGB (test 28.8 pg 27.0-34.1 N code = MCH) MEAN CELL HGB 30.2 % 32.2-35.7 L CONCETRATION (test code = MCHC) RED CELL DISTRIBUTION 14.2 % 12.1-15.2 N WIDTH (test code = RDW) PLATELET COUNT (test 168 K/MM3 129-368 N code = PLT) MEAN PLATELET VOLUME 11.2 fl 7.4-10.4 H (test code = MPV) NEUTROPHIL % (test 47.3 % 43-75 N code = NT%) IMMATURE GRANULOCYTE % 1.8 % 0.0-2.0 N (test code = IG%) LYMPHOCYTE % (test 22.7 % 14-44 N code = LY%) MONOCYTE % (test code 16.2 % 4-13 H = MO%) EOSINOPHIL % (test 11.7 % 0-6 H code = EO%) BASOPHIL % (test code 0.3 % 0-2 N = BA%) NUCLEATED RBC % (test 0.0 % 0-1.0 N code = NRBC%) NEUTROPHIL # (test 2.82 K/mm3 2.0-7.6 N code = NT#) IMMATURE GRANULOCYTE # 0.11 x10 3/uL 0-0.03 H (test code = IG#) LYMPHOCYTE # (test 1.36 K/mm3 1.0-3.8 N code = LY#) MONOCYTE # (test code 0.97 K/mm3 0.1-0.8 H = MO#) EOSINOPHIL # (test 0.70 K/mm3 0.0-0.2 H code = EO#) BASOPHIL # (test code 0.02 K/mm3 0.0-0.2 N = BA#) NUCLEATED RBC # (test 0.00 K/mm3 0.0-0.1 N code = NRBC#) WBC [id number] 11:58:00 Test Item Value Reference Range Interpretation Comments RBC MORPHOLOGY REQUIRED (test code = RBCM) TOTAL CELLS COUNTED (test code = TCC) #CELLS SEGMENTED NEUTROPHILS (test code = % 36.2-73.8 SEG) LYMPHOCYTE (test code = LYMPH) % 12.9-45.1 MONOCYTE (test code = MON) % 0-11 PLATELET ESTIMATE (test code = ADEQUATE PLTEST) PLATELET MORPHOLOGY (test code = NORMAL PLTMORPH) BASIC METABOLIC [id number] 11:50:00 Test Item Value Reference Range Interpretation Comments SODIUM (test code = 136 MMOL/L 137-145 L NA) POTASSIUM (test code = 4.4 MMOL/L 3.5-5.1 N K) CHLORIDE (test code = 95 MMOL/L 98-107 L CL) CARBON DIOXIDE (test 27 MMOL/L 22-30 N code = CO2) ANION GAP (test code = 18 MMOL/L 14-24 N GAP) GLUCOSE (test code = 90 MG/DL 74-106 N GLU) BLOOD UREA NITROGEN 61 MG/DL 7-17 H (test code = BUN) GLOMERULAR FILTRATION 2 Report ing units: RATE (test code = GFR) ml/mi n/1.73 m2 (Modified MDRD Formula)Referen ce Range: > or = 6 0 ml/min/1.73 m2 CREATININE (test code 20.40 MG/DL 0.52-1.04 H = CREAT) CALCIUM (test code = 6.9 MG/DL 8.4-10.2 L CA) BASIC METABOLIC [id number] 11:41:00 Test Item Value Reference Range Interpretation Comments SODIUM (test code = NA) 136 MMOL/L 137-145 L POTASSIUM (test code = K) 4.4 MMOL/L 3.5-5.1 N CHLORIDE (test code = CL) 95 MMOL/L 98-107 L CARBON DIOXIDE (test code = CO2) 27 MMOL/L 22-30 N ANION GAP (test code = GAP) 18 MMOL/L 14-24 N GLUCOSE (test code = GLU) 90 MG/DL 74-106 N BLOOD UREA NITROGEN (test code = 61 MG/DL 7-17 H BUN) GLOMERULAR FILTRATION RATE (test code = GFR) CREATININE (test code = CREAT) MG/DL 0.52-1.04 CALCIUM (test code = CA) 6.9 MG/DL 8.4-10.2 L CBC W/AUTO [id number] 15:11:00 Test Item Value Reference Range Interpretation Comments WHITE BLOOD CELL (test code = 6.0 K/MM3 3.8-9.8 N WBC) RED BLOOD CELL (test code = 2.46 M/MM3 3.58-4.97 L RBC) HEMOGLOBIN (test code = HGB) 7.0 G/DL 11.2-14.9 L HEMATOCRIT (test code = HCT) 24.3 % 33.2-43.5 L MEAN CELL VOLUME (test code = 99 fL 80.7-99.1 N MCV) MEAN CELL HGB (test code = MCH) 28.5 pg 27.0-34.1 N MEAN CELL HGB CONCETRATION 28.8 % 32.2-35.7 L (test code = MCHC) RED CELL DISTRIBUTION WIDTH 15.7 % 12.1-15.2 H (test code = RDW) PLATELET COUNT (test code = 163 K/MM3 129-368 N PLT) MEAN PLATELET VOLUME (test code 11.6 fl 7.4-10.4 H = MPV) NEUTROPHIL % (test code = NT%) 54.9 % 43-75 N IMMATURE GRANULOCYTE % (test 2.3 % 0.0-2.0 H code = IG%) LYMPHOCYTE % (test code = LY%) 20.5 % 14-44 N MONOCYTE % (test code = MO%) 12.4 % 4-13 N EOSINOPHIL % (test code = EO%) 9.2 % 0-6 H BASOPHIL % (test code = BA%) 0.7 % 0-2 N NUCLEATED RBC % (test code = 0.0 % 0-1.0 N NRBC%) NEUTROPHIL # (test code = NT#) 3.29 K/mm3 2.0-7.6 N IMMATURE GRANULOCYTE # (test 0.14 x10 3/uL 0-0.03 H code = IG#) LYMPHOCYTE # (test code = LY#) 1.23 K/mm3 1.0-3.8 N MONOCYTE # (test code = MO#) 0.74 K/mm3 0.1-0.8 N EOSINOPHIL # (test code = EO#) 0.55 K/mm3 0.0-0.2 H BASOPHIL # (test code = BA#) 0.04 K/mm3 0.0-0.2 N NUCLEATED RBC # (test code = 0.00 K/mm3 0.0-0.1 N NRBC#) DIFFERENTIAL [id number] 15:11:00 Test Item Value Reference Range Interpretation Comments RBC MORPHOLOGY REQUIRED (test code = NORMAL RBCM) HYPOCHROMIA (test code = HYPO) MODERATE NONE POIKILOCYTOSIS (test code = POIK) FEW NONE ANISOCYTOSIS (test code = ANISO) SLIGHT NONE PLATELET ESTIMATE (test code = ADEQUATE ADEQUATE PLTEST) PLATELET MORPHOLOGY (test code = NORMAL NORMAL PLTMORPH) BASIC METABOLIC [id number] 06:26:00 Test Item Value Reference Range Interpretation Comments SODIUM (test code = 142 MMOL/L 137-145 N NA) POTASSIUM (test code = 4.0 MMOL/L 3.5-5.1 N K) CHLORIDE (test code = 98 MMOL/L 98-107 N CL) CARBON DIOXIDE (test 27 MMOL/L 22-30 N code = CO2) ANION GAP (test code = 21 MMOL/L 14-24 N GAP) GLUCOSE (test code = 85 MG/DL 74-106 GLU) BLOOD UREA NITROGEN 68 MG/DL 7-17 H (test code = BUN) GLOMERULAR FILTRATION 2 Report ing units: RATE (test code = GFR) ml/mi n/1.73 m2 (Modified MDRD Formula)Referen ce Range: > or = 6 0 ml/min/1.73 m2 CREATININE (test code 20.70 MG/DL 0.52-1.04 H = CREAT) CALCIUM (test code = 6.8 MG/DL 8.4-10.2 L CA) BASIC METABOLIC [id number] 06:23:00 Test Item Value Reference Range Interpretation Comments SODIUM (test code = NA) 142 MMOL/L 137-145 N POTASSIUM (test code = K) 4.0 MMOL/L 3.5-5.1 N CHLORIDE (test code = CL) 98 MMOL/L 98-107 N CARBON DIOXIDE (test code = CO2) 27 MMOL/L 22-30 N ANION GAP (test code = GAP) 21 MMOL/L 14-24 N GLUCOSE (test code = GLU) 85 MG/DL 74-106 BLOOD UREA NITROGEN (test code = 68 MG/DL 7-17 H BUN) GLOMERULAR FILTRATION RATE (test code = GFR) CREATININE (test code = CREAT) MG/DL 0.52-1.04 CALCIUM (test code = CA) 6.8 MG/DL 8.4-10.2 L CBC W/AUTO [id number] 06:05:00 Test Item Value Reference Range Interpretation Comments WHITE BLOOD CELL (test code = 6.0 K/MM3 3.8-9.8 N WBC) RED BLOOD CELL (test code = 2.46 M/MM3 3.58-4.97 L RBC) HEMOGLOBIN (test code = HGB) 7.0 G/DL 11.2-14.9 L HEMATOCRIT (test code = HCT) 24.3 % 33.2-43.5 L MEAN CELL VOLUME (test code = 99 fL 80.7-99.1 N MCV) MEAN CELL HGB (test code = MCH) 28.5 pg 27.0-34.1 N MEAN CELL HGB CONCETRATION 28.8 % 32.2-35.7 L (test code = MCHC) RED CELL DISTRIBUTION WIDTH 15.7 % 12.1-15.2 H (test code = RDW) PLATELET COUNT (test code = 163 K/MM3 129-368 N PLT) MEAN PLATELET VOLUME (test code 11.6 fl 7.4-10.4 H = MPV) NEUTROPHIL % (test code = NT%) 54.9 % 43-75 N IMMATURE GRANULOCYTE % (test 2.3 % 0.0-2.0 H code = IG%) LYMPHOCYTE % (test code = LY%) 20.5 % 14-44 N MONOCYTE % (test code = MO%) 12.4 % 4-13 N EOSINOPHIL % (test code = EO%) 9.2 % 0-6 H BASOPHIL % (test code = BA%) 0.7 % 0-2 N NUCLEATED RBC % (test code = 0.0 % 0-1.0 N NRBC%) NEUTROPHIL # (test code = NT#) 3.29 K/mm3 2.0-7.6 N IMMATURE GRANULOCYTE # (test 0.14 x10 3/uL 0-0.03 H code = IG#) LYMPHOCYTE # (test code = LY#) 1.23 K/mm3 1.0-3.8 N MONOCYTE # (test code = MO#) 0.74 K/mm3 0.1-0.8 N EOSINOPHIL # (test code = EO#) 0.55 K/mm3 0.0-0.2 H BASOPHIL # (test code = BA#) 0.04 K/mm3 0.0-0.2 N NUCLEATED RBC # (test code = 0.00 K/mm3 0.0-0.1 N NRBC#) DIFFERENTIAL [id number] 06:05:00 Test Item Value Reference Range Interpretation Comments RBC MORPHOLOGY REQUIRED (test code = RBCM) PLATELET ESTIMATE (test code = PLTEST) ADEQUATE PLATELET MORPHOLOGY (test code = NORMAL PLTMORPH) CBC W/AUTO [id number] 06:05:00 Test Item Value Reference Range Interpretation Comments WHITE BLOOD CELL (test code = 6.0 K/MM3 3.8-9.8 N WBC) RED BLOOD CELL (test code = 2.46 M/MM3 3.58-4.97 L RBC) HEMOGLOBIN (test code = HGB) 7.0 G/DL 11.2-14.9 L HEMATOCRIT (test code = HCT) 24.3 % 33.2-43.5 L MEAN CELL VOLUME (test code = 99 fL 80.7-99.1 N MCV) MEAN CELL HGB (test code = MCH) 28.5 pg 27.0-34.1 N MEAN CELL HGB CONCETRATION 28.8 % 32.2-35.7 L (test code = MCHC) RED CELL DISTRIBUTION WIDTH 15.7 % 12.1-15.2 H (test code = RDW) PLATELET COUNT (test code = 163 K/MM3 129-368 N PLT) MEAN PLATELET VOLUME (test code 11.6 fl 7.4-10.4 H = MPV) NEUTROPHIL % (test code = NT%) 54.9 % 43-75 N IMMATURE GRANULOCYTE % (test 2.3 % 0.0-2.0 H code = IG%) LYMPHOCYTE % (test code = LY%) 20.5 % 14-44 N MONOCYTE % (test code = MO%) 12.4 % 4-13 N EOSINOPHIL % (test code = EO%) 9.2 % 0-6 H BASOPHIL % (test code = BA%) 0.7 % 0-2 N NUCLEATED RBC % (test code = 0.0 % 0-1.0 N NRBC%) NEUTROPHIL # (test code = NT#) 3.29 K/mm3 2.0-7.6 N IMMATURE GRANULOCYTE # (test 0.14 x10 3/uL 0-0.03 H code = IG#) LYMPHOCYTE # (test code = LY#) 1.23 K/mm3 1.0-3.8 N MONOCYTE # (test code = MO#) 0.74 K/mm3 0.1-0.8 N EOSINOPHIL # (test code = EO#) 0.55 K/mm3 0.0-0.2 H BASOPHIL # (test code = BA#) 0.04 K/mm3 0.0-0.2 N NUCLEATED RBC # (test code = 0.00 K/mm3 0.0-0.1 N NRBC#) DIFFERENTIAL [id number] 06:05:00 Test Item Value Reference Range Interpretation Comments RBC MORPHOLOGY REQUIRED (test code = RBCM) PLATELET ESTIMATE (test code = PLTEST) ADEQUATE PLATELET MORPHOLOGY (test code = NORMAL PLTMORPH) GLUCOSE BEDSIDE [id number] 20:23:00 Test Item Value Reference Range Interpretation Comments GLUCOSE BEDSIDE TESTING (test code = 89 MG/DL 60-99 N GLUBED) GLUCOSE BEDSIDE [id number] 15:56:00 Test Item Value Reference Range Interpretation Comments GLUCOSE BEDSIDE TESTING (test code 124 MG/DL 60-99 H = GLUBED) GLUCOSE BEDSIDE [id number] 11:52:00 Test Item Value Reference Range Interpretation Comments GLUCOSE BEDSIDE TESTING (test code = 92 MG/DL 60-99 N GLUBED) BASIC METABOLIC [id number] 07:25:00 Test Item Value Reference Range Interpretation Comments SODIUM (test code = 144 MMOL/L 137-145 N NA) POTASSIUM (test code = 4.2 MMOL/L 3.5-5.1 N K) CHLORIDE (test code = 99 MMOL/L 98-107 N CL) CARBON DIOXIDE (test 28 MMOL/L 22-30 N code = CO2) ANION GAP (test code = 21 MMOL/L 14-24 N GAP) GLUCOSE (test code = 110 MG/DL 74-106 H GLU) BLOOD UREA NITROGEN 61 MG/DL 7-17 H (test code = BUN) GLOMERULAR FILTRATION 2 Report ing units: RATE (test code = GFR) ml/mi n/1.73 m2 (Modified MDRD Formula)Referen ce Range: > or = 6 0 ml/min/1.73 m2 CREATININE (test code 20.30 MG/DL 0.52-1.04 H = CREAT) CALCIUM (test code = 7.1 MG/DL 8.4-10.2 L CA) BASIC METABOLIC [id number] 06:21:00 Test Item Value Reference Range Interpretation Comments SODIUM (test code = NA) 144 MMOL/L 137-145 N POTASSIUM (test code = K) 4.2 MMOL/L 3.5-5.1 N CHLORIDE (test code = CL) 99 MMOL/L 98-107 N CARBON DIOXIDE (test code = CO2) 28 MMOL/L 22-30 N ANION GAP (test code = GAP) 21 MMOL/L 14-24 N GLUCOSE (test code = GLU) 110 MG/DL 74-106 H BLOOD UREA NITROGEN (test code = 61 MG/DL 7-17 H BUN) GLOMERULAR FILTRATION RATE (test code = GFR) CREATININE (test code = CREAT) MG/DL 0.52-1.04 CALCIUM (test code = CA) 7.1 MG/DL 8.4-10.2 L PROTHROMBIN [id number] 06:07:00 Test Item Value Reference Range Interpretation Comments PROTHROMBIN TIME PATIENT 11.3 9.5-12.7 N (test code = PTP) INTERNATIONAL NORMAL RATIO 1.0 0.86-1.14 N T he INR is to be used (test code = INR) only for m onitoring oral anticoagulantth erapy. INDICATION INR VALUE ------- ------- -----1. Prophylaxis, de ep venous thrombos is, including high risk surgery. 2.0 - 3.0 2. Prophylaxis, de ep venous thrombos is, hip surgery, treatm ent for deep venous thr ombosis or pulmonary prevention of s ystemic embolism in pat ients with valvular h eart disease, atrial fibrillation, t issue heart valve, or acute myocardial infa rction. 2.0 - 3.0 3. Mechanical pros thesis heart valves, recurrent syste jose embolism. 3.0 - 4.5 PTT [id number] 06:07:00 Test Item Value Reference Range Interpretation Comments PTT ACTIVATED (test code = APTT) 40.0 SECONDS 25.1-36.5 H CBC W/AUTO [id number] 05:53:00 Test Item Value Reference Range Interpretation Comments WHITE BLOOD CELL (test code = 9.4 K/MM3 3.8-9.8 N WBC) RED BLOOD CELL (test code = 3.22 M/MM3 3.58-4.97 L RBC) HEMOGLOBIN (test code = HGB) 9.3 G/DL 11.2-14.9 L HEMATOCRIT (test code = HCT) 31.3 % 33.2-43.5 L MEAN CELL VOLUME (test code = 97 fL 80.7-99.1 N MCV) MEAN CELL HGB (test code = MCH) 28.9 pg 27.0-34.1 N MEAN CELL HGB CONCETRATION 29.7 % 32.2-35.7 L (test code = MCHC) RED CELL DISTRIBUTION WIDTH 16.1 % 12.1-15.2 H (test code = RDW) PLATELET COUNT (test code = 227 K/MM3 129-368 N PLT) MEAN PLATELET VOLUME (test code 11.1 fl 7.4-10.4 H = MPV) NEUTROPHIL % (test code = NT%) 62.7 % 43-75 N IMMATURE GRANULOCYTE % (test 2.4 % 0.0-2.0 H code = IG%) LYMPHOCYTE % (test code = LY%) 16.2 % 14-44 N MONOCYTE % (test code = MO%) 10.6 % 4-13 N EOSINOPHIL % (test code = EO%) 7.3 % 0-6 H BASOPHIL % (test code = BA%) 0.8 % 0-2 N NUCLEATED RBC % (test code = 0.0 % 0-1.0 N NRBC%) NEUTROPHIL # (test code = NT#) 5.90 K/mm3 2.0-7.6 N IMMATURE GRANULOCYTE # (test 0.23 x10 3/uL 0-0.03 H code = IG#) LYMPHOCYTE # (test code = LY#) 1.53 K/mm3 1.0-3.8 N MONOCYTE # (test code = MO#) 1.00 K/mm3 0.1-0.8 H EOSINOPHIL # (test code = EO#) 0.69 K/mm3 0.0-0.2 H BASOPHIL # (test code = BA#) 0.08 K/mm3 0.0-0.2 N NUCLEATED RBC # (test code = 0.00 K/mm3 0.0-0.1 N NRBC#) - CT HEAD/BRAIN W/O [id number] 04:54:00 [facility] 1990 Sex: F PatientName: CHRISTINA KEBEDE Unit No: [id number] EXAMS: CPT CODE: [id number] CT HEAD/BRAIN W/O CONT [id number] EXAM: - CT HEAD/BRAIN W/O CONT HISTORY: AMS. TECHNIQUE: Axial tomograms through the brain were obtained without intravenous contrast. This exam was performed according to our departmental dose-optimization program, which includes automated exposure control, adjustment of the mA and/or kV according to patient size and/or use of iterative reconstruction technique. COMPARISON: None available time of interpretation. FINDINGS: There is no intracranial hemorrhage, or mass effect. The ventricular system andsulci are age-appropriate. The osseous structures and orbits, show no significant abnormalities. Thevisualized sinuses are relatively clear. The soft tissues are unremarkable. IMPRESSION: No evidenceof acute intracranial abnormality or hemorrhage. at 0454 Reported and signed by: Naif Birch MD CC: Technologist: Lulu Berkowitz CTDI: DLP: Trnscrpt: 02/23/2021 (0454) Maria LuzR.[email or web address] [facility] NAME: CHRISTINA KEBEDE PHYS: [facility] [place] [id number] : 1990 AGE: 30 SEX: F LOC: Z.413 A PHONE #: [phone] EXAM DATE: 02/23/2021 STATUS: ADM IN FAX #: [phone] RAD #: D/C DT PAGE 1 Signed Report Patient Name: CHRISTINA KEBEDE Unit No: [id number] EXAMS: CPT CODE: [id number] CTHEAD/BRAIN W/O CONT [id number] <Continued> Orig Print D/T: S: 02/23/2021 (0457) [facility] Chad NAME: CHRISTINA KEBEDE PHYS: [facility] [place] [address] : 1990 AGE: 30 SEX: F LOC: Z.413 A PHONE #: [phone] EXAM DATE: 02/23/2021 STATUS:ADM IN FAX #: [phone] RAD #: D/C DT PAGE 2 Signed Report GLUCOSE BEDSIDE [id number] 03:51:00 Test Item Value Reference Range Interpretation Comments GLUCOSE BEDSIDE TESTING (test code 100 MG/DL 60-99 H = GLUBED) PTT [id number] 22:58:00 Test Item Value Reference Range Interpretation Comments PTT ACTIVATED (test 72.2 SECONDS 25.1-36.5 HH CALLED T O DEVON L. code = APTT) & READBACK ON 02/22/21 AT 225 7 BY Jermaine Pacheco PTT [id number] 22:39:00 Test Item Value Reference Range Interpretation Comments PTT ACTIVATED (test 62.6 SECONDS 25.1-36.5 HH CALLED T O ALBIN L & code = APTT) READBACK ON AT 2237 BY Mariano Cassidy [id number] 14:23:00 Test Item Value Reference Range Interpretation Comments VANCOMYCIN (test code 76.8 mcg/ML 5.0-26.0 H CALLED RESULTS TO = VANCO) PHARMACIST TONG RIOJAS 02/21/21 AT 142 2 BY CRISTIAN1. PTT [id number] 22:11:00 Test Item Value Reference Range Interpretation Comments PTT ACTIVATED (test code = APTT) 56.1 SECONDS 25.1-36.5 H PTT [id number] 20:33:00 Test Item Value Reference Range Interpretation Comments PTT ACTIVATED (test code = APTT) 57.4 SECONDS 25.1-36.5 H UNABLE TO DRAW BLOOD, REASON: CBNNOTIFIED PATIENT CARE STAFF: [facility] 02/19/21 AT 1321 BY Yong Crabtree AnPTT [id number] 16:07:00 Test Item Value Reference Range Interpretation Comments PTT ACTIVATED (test code = APTT) 58.8 SECONDS 25.1-36.5 H UNABLE TO DRAW BLOOD, REASON: CBNNOTIFIED PATIENT CARE STAFF: [facility] 02/19/21 AT 1322 BY Yong [id number] 16:01:00 Test Item Value Reference Range Interpretation Comments VANCOMYCIN (test code = VANCO) 97.7 mcg/ML 5.0-26.0 H PTT [id number] 10:51:00 Test Item Value Reference Range Interpretation Comments PTT ACTIVATED (test 67.4 SECONDS 25.1-36.5 HH CALLED T O ANDRETHALIACARLOS code = APTT) C& READBACK ON 02/19/21 AT 104 9 BY Salazar Yuen UNABLE TO DRAW BLOOD, REASON: RN DRAWNOTIFIED PATIENT CARE STAFF: [facility] 02/19/21 AT 0913 BY [id number] 05:59:00 Test Item Value Reference Range Interpretation Comments TROPONIN-I (test 1.330 NG/ML 0.012-0.033 HH CALLED TO Tee OLMEDO code = TROPI) TROPI=1.330& R EADBACK ON 02/19/21 AT 0559 BY Omkar Le PTT [id number] 05:48:00 Test Item Value Reference Range Interpretation Comments PTT ACTIVATED (test 94.7 SECONDS 25.1-36.5 HH CALLED T O NAYAH T.& code = APTT) READBACK ON 10/30 AT 0548 BY Jermaine Michel BASIC METABOLIC [id number] 05:48:00 Test Item Value Reference Range Interpretation Comments SODIUM (test code = 144 MMOL/L 137-145 N NA) POTASSIUM (test code = 4.2 MMOL/L 3.5-5.1 N K) CHLORIDE (test code = 102 MMOL/L 98-107 N CL) CARBON DIOXIDE (test 24 MMOL/L 22-30 N code = CO2) ANION GAP (test code = 22 MMOL/L 14-24 N GAP) GLUCOSE (test code = 107 MG/DL 74-106 H GLU) BLOOD UREA NITROGEN 77 MG/DL 7-17 H (test code = BUN) GLOMERULAR FILTRATION 2 Report ing units: RATE (test code = GFR) ml/mi n/1.73 m2 (Modified MDRD Formula)Referen ce Range: > or = 6 0 ml/min/1.73 m2 CREATININE (test code 20.00 MG/DL 0.52-1.04 H = CREAT) CALCIUM (test code = 7.1 MG/DL 8.4-10.2 L CA) [id number] 05:48:00 Test Item Value Reference Range Interpretation Comments MAGNESIUM (test code = MAG) 2.6 MG/DL 1.6-2.3 H CBC W/O [id number] 05:39:00 Test Item Value Reference Range Interpretation Comments WHITE BLOOD CELL (test code = 9.7 K/MM3 3.8-9.8 N WBC) RED BLOOD CELL (test code = 2.91 M/MM3 3.58-4.97 L RBC) HEMOGLOBIN (test code = HGB) 8.7 G/DL 11.2-14.9 L HEMATOCRIT (test code = HCT) 27.8 % 33.2-43.5 L MEAN CELL VOLUME (test code = 96 fL 80.7-99.1 N MCV) MEAN CELL HGB (test code = MCH) 29.9 pg 27.0-34.1 N MEAN CELL HGB CONCETRATION 31.3 % 32.2-35.7 L (test code = MCHC) RED CELL DISTRIBUTION WIDTH 17.0 % 12.1-15.2 H (test code = RDW) PLATELET COUNT (test code = 233 K/MM3 129-368 N PLT) NEUTROPHIL # (test code = NT#) 6.69 K/mm3 2.0-7.6 N IMMATURE GRANULOCYTE # (test 0.26 x10 3/uL 0-0.03 H code = IG#) LYMPHOCYTE # (test code = LY#) 1.51 K/mm3 1.0-3.8 N MONOCYTE # (test code = MO#) 0.97 K/mm3 0.1-0.8 H EOSINOPHIL # (test code = EO#) 0.18 K/mm3 0.0-0.2 N BASOPHIL # (test code = BA#) 0.08 K/mm3 0.0-0.2 N NUCLEATED RBC # (test code = 0.02 K/mm3 0.0-0.1 N NRBC#) BASIC METABOLIC [id number] 02:48:00 Test Item Value Reference Range Interpretation Comments SODIUM (test code = 142 MMOL/L 137-145 N NA) POTASSIUM (test code = 4.3 MMOL/L 3.5-5.1 N K) CHLORIDE (test code = 102 MMOL/L 98-107 N CL) CARBON DIOXIDE (test 24 MMOL/L 22-30 N code = CO2) ANION GAP (test code = 20 MMOL/L 14-24 N GAP) GLUCOSE (test code = 143 MG/DL 74-106 H GLU) BLOOD UREA NITROGEN 78 MG/DL 7-17 H (test code = BUN) GLOMERULAR FILTRATION 2 Report ing units: RATE (test code = GFR) ml/mi n/1.73 m2 (Modified MDRD Formula)Referen ce Range: > or = 6 0 ml/min/1.73 m2 CREATININE (test code 20.00 MG/DL 0.52-1.04 H = CREAT) CALCIUM (test code = 6.2 MG/DL 8.4-10.2 LL CALLED TO JOSEFINA WILKERSON) Ca=6.2& READBAC K ON 02/19/21 AT 024 8 BY Omkar Le [id number] 02:48:00 Test Item Value Reference Range Interpretation Comments MAGNESIUM (test code = MAG) 1.9 MG/DL 1.6-2.3 N [id number] 02:48:00 Test Item Value Reference Range Interpretation Comments TROPONIN-I (test 1.470 NG/ML 0.012-0.033 CALLED TO Tee Cates code = TROPI) Tropi=1.470& R EADBACK ON 02/19/21 AT 0248 BY Omkar Le [id number] 23:02:00 Test Item Value Reference Range Interpretation Comments TROPONIN-I (test 1.450 NG/ML 0.012-0.033 HH CALLED TO Igor Barillas& code = TROPI) READBACK ON AT 2302 BY Una Orourke NO GREEN TOP WERE SENTPROTHROMBIN [id number] 22:18:00 Test Item Value Reference Range Interpretation Comments PROTHROMBIN TIME PATIENT 12.0 9.5-12.7 N (test code = PTP) [employer]NATIONAL NORMAL RATIO 1.1 0.86-1.14 N T he INR is to be used (test code = INR) only for m onitoring oral anticoagulantth erapy. INDICATION INR VALUE ------- ------- -----1. Prophylaxis, de ep venous thrombos is, including high risk surgery. 2.0 - 3.0 2. Prophylaxis, de ep venous thrombos is, hip surgery, treatm ent for deep venous thr ombosis or pulmonary prevention of s ystemic embolism in pat ients with valvular h eart disease, atrial fibrillation, t issue heart valve, or acute myocardial infa rction. 2.0 - 3.0 3. Mechanical pros thesis heart valves, recurrent syste jose embolism. 3.0 - 4.5 PTT [id number] 22:18:00 Test Item Value Reference Range Interpretation Comments PTT ACTIVATED (test code = APTT) 31.2 SECONDS 25.1-36.5 N CBC W/AUTO [id number] 22:03:00 Test Item Value Reference Range Interpretation Comments WHITE BLOOD CELL (test code = 10.7 K/MM3 3.8-9.8 H WBC) RED BLOOD CELL (test code = 3.08 M/MM3 3.58-4.97 L RBC) HEMOGLOBIN (test code = HGB) 9.1 G/DL 11.2-14.9 L HEMATOCRIT (test code = HCT) 29.4 % 33.2-43.5 L MEAN CELL VOLUME (test code = 96 fL 80.7-99.1 N MCV) MEAN CELL HGB (test code = MCH) 29.5 pg 27.0-34.1 N MEAN CELL HGB CONCETRATION 31.0 % 32.2-35.7 L (test code = MCHC) RED CELL DISTRIBUTION WIDTH 17.0 % 12.1-15.2 H (test code = RDW) PLATELET COUNT (test code = 243 K/MM3 129-368 N PLT) MEAN PLATELET VOLUME (test code 10.7 fl 7.4-10.4 H = MPV) NEUTROPHIL % (test code = NT%) 84.6 % 43-75 H IMMATURE GRANULOCYTE % (test 2.3 % 0.0-2.0 H code = IG%) LYMPHOCYTE % (test code = LY%) 6.8 % 14-44 L MONOCYTE % (test code = MO%) 5.4 % 4-13 N EOSINOPHIL % (test code = EO%) 0.6 % 0-6 N BASOPHIL % (test code = BA%) 0.3 % 0-2 N NUCLEATED RBC % (test code = 0.3 % 0-1.0 N NRBC%) NEUTROPHIL # (test code = NT#) 9.01 K/mm3 2.0-7.6 H IMMATURE GRANULOCYTE # (test 0.25 x10 3/uL 0-0.03 H code = IG#) LYMPHOCYTE # (test code = LY#) 0.73 K/mm3 1.0-3.8 L MONOCYTE # (test code = MO#) 0.58 K/mm3 0.1-0.8 N EOSINOPHIL # (test code = EO#) 0.06 K/mm3 0.0-0.2 N BASOPHIL # (test code = BA#) 0.03 K/mm3 0.0-0.2 N NUCLEATED RBC # (test code = 0.03 K/mm3 0.0-0.1 N NRBC#) COMPREHENSIVE METABOLIC [id number] 19:39:00 Test Item Value Reference Range Interpretation Comments SODIUM (test code 138 MMOL/L 137-145 N = NA) POTASSIUM (test 4.6 MMOL/L 3.5-5.1 N code = K) CHLORIDE (test 102 MMOL/L 98-107 N code = CL) CARBON DIOXIDE 18 MMOL/L 22-30 L (test code = CO2) ANION GAP (test 23 MMOL/L 14-24 N code = GAP) GLUCOSE (test 144 MG/DL 74-106 H code = GLU) BLOOD UREA 88 MG/DL 7-17 H NITROGEN (test code = BUN) GLOMERULAR 2 Reporting units : FILTRATION RATE ml/min/1.73 m2 (Modified (test code = GFR) MDRD Formu la)Reference Range: > or = 6 0 ml/min/1.73 m2 CREATININE (test 20.30 MG/DL 0.52-1.04 H code = CREAT) TOTAL PROTEIN 6.1 G/DL 6.3-8.2 L [facility] Clinical Diagnostic (test code = has made us lesia re of PROT) newinformation regarding the potential i nterference ofEltrombopag ( a bone marrow stimulan t used to treatthrombocyt onmenia and aplastic anemia ) with specific assays on the Vitros 5600 of which Total Protein is one of thoseassays per formed in our lab.Interfe rence testing perform ed at Ortho determined that Eltrombopag does interfere with Vitros Total Protein asfollowsEltrom bopag Interference fo r Vitros Product Total Protein:======= Eltrombopag Max Observed Av g. BiasConcentrati on Concentration Concentration== ==== 2.5 mg/dl 6.0 g/dl +0.41 +0.34 3.5 mg/dl 6.0 g /dl +0.50 +0.45 5 mg/dl 6 .0 g/dl +0.73 +0.65 2.5 mg/dl 8.0 g/dl +0.44 +0.4 1 3.5 mg/dl 8.0 g/dl +0.55 +0.52 5 mg/dl 8.0 g/dl +0.86 +0.77 ALBUMIN (test 2.6 G/DL 3.5-5.0 L code = ALB) CALCIUM (test 5.9 MG/DL 8.4-10.2 LL CALLED TO HILARY Hanson& code = CA) READBACK ON 09/30 AT 1832 BY Una Orourke BILIRUBIN TOTAL 0.6 MG/DL 0.2-1.3 N Eltrombopag Interference (test code = for Vitros Prod uct TBil, BILT) BuBc: Assa y Eltrombopag Laurel lyte/ Max Observed Avg. B ias Concentration C oncentration Concentration== ====TBil 7mg/dl TBil/ 1. 2mg/dl +0.23mg.dl +0.2 0mg/dlBuBc 3.5mg/dl Bu/0.8 mg/dl +0.25mg/dl +0.2 4mg/dlBuBc 7 mg/dl Bu/14.2mg /dl +0.38mg/dl +0.2 5mg/dlBuBc 5mg/dl Bc/0mg/ dl +0.25mg/dl +0.1 5mg/dlBuBc 3.5mg/dl Bc/2.8 mg/dl +0.25mg/dl +0.2 3mg/dl SGOT/AST (test 69 UNITS/L 14-36 H code = AST) SGPT/ALT (test 19 UNITS/L <35 code = ALT) ALKALINE 202 UNITS/L 38-126 H PHOSPHATASE (test code = ALKP) [id number] 19:39:00 Test Item Value Reference Range Interpretation Comments MAGNESIUM (test code = MAG) 2.0 MG/DL 1.6-2.3 N LIPOPROTEIN LDL [id number] 19:39:00 Test Item Value Reference Range Interpretation Comments LIPOPROTEIN LDL DIRECT 59 mg/dL 100-129 L ===== (test code = LDLDIR) ======= ==Refe rence Interval: mg/dL mmol/L--------- ------ ------ ------ --Optimal <100 <2.6Near/above optimal 100-129 2.6-3.3Borderli ne High 130-159 3.4-4.1High 160 -189 4.1-4.9Very Hig h >=190 >=4.9==== ===== This LDL result is a direct measurement.=== ====== NT PRO-BRAIN NATRIURETIC [id number] 19:39:00 Test Item Value Reference Range Interpretation Comments NT PRO-BRAIN NATRIURETIC PEPTI [id number] pg/mL 0-125 H (test code = PROBNP) [id number] 19:39:00 Test Item Value Reference Range Interpretation Comments TROPONIN-I (test 1.190 NG/ML 0.012-0.033 HH CALLED TO Song Little& code = TROPI) READBACK ON AT 1914 BY Una Orourke LACTIC [id number] 19:14:00 Test Item Value Reference Range Interpretation Comments LACTIC ACID (test code = LACT) 1.7 MMOL/L 0.7-2.1 N COMPREHENSIVE METABOLIC [id number] 19:14:00 Test Item Value Reference Range Interpretation Comments SODIUM (test code 138 MMOL/L 137-145 N = NA) POTASSIUM (test 4.6 MMOL/L 3.5-5.1 N code = K) CHLORIDE (test 102 MMOL/L 98-107 N code = CL) CARBON DIOXIDE 18 MMOL/L 22-30 L (test code = CO2) ANION GAP (test 23 MMOL/L 14-24 N code = GAP) GLUCOSE (test 144 MG/DL 74-106 H code = GLU) BLOOD UREA 88 MG/DL 7-17 H NITROGEN (test code = BUN) GLOMERULAR 2 Reporting units : FILTRATION RATE ml/min/1.73 m2 (Modified (test code = GFR) MDRD Formu la)Reference Range: > or = 6 0 ml/min/1.73 m2 CREATININE (test 20.30 MG/DL 0.52-1.04 H code = CREAT) TOTAL PROTEIN 6.1 G/DL 6.3-8.2 L [facility] Clinical Diagnostic (test code = has made us lesia re of PROT) newinformation regarding the potential i nterference ofEltrombopag ( a bone marrow stimulan t used to treatthrombocyt onmenia and aplastic anemia ) with specific assays on the Vitros 5600 of which Total Protein is one of thoseassays per formed in our lab.Interfe rence testing perform ed at Ortho determined that Eltrombopag does interfere with Vitros Total Protein asfollowsEltrom bopag Interference fo r Vitros Product Total Protein:======= Eltrombopag Max Observed Av g. BiasConcentrati on Concentration Concentration== ==== 2.5 mg/dl 6.0 g/dl +0.41 +0.34 3.5 mg/dl 6.0 g /dl +0.50 +0.45 5 mg/dl 6 .0 g/dl +0.73 +0.65 2.5 mg/dl 8.0 g/dl +0.44 +0.4 1 3.5 mg/dl 8.0 g/dl +0.55 +0.52 5 mg/dl 8.0 g/dl +0.86 +0.77 ALBUMIN (test 2.6 G/DL 3.5-5.0 L code = ALB) CALCIUM (test 5.9 MG/DL 8.4-10.2 LL CALLED TO HILARY Hanson& code = CA) READBACK ON 09/30 AT 1832 BY Una Orourke BILIRUBIN TOTAL 0.6 MG/DL 0.2-1.3 N Eltrombopag Interference (test code = for Vitros Prod uct TBil, BILT) BuBc: Assa y Eltrombopag Laurel lyte/ Max Observed Avg. B ias Concentration C oncentration Concentration== ====TBil 7mg/dl TBil/ 1. 2mg/dl +0.23mg.dl +0.2 0mg/dlBuBc 3.5mg/dl Bu/0.8 mg/dl +0.25mg/dl +0.2 4mg/dlBuBc 7 mg/dl Bu/14.2mg /dl +0.38mg/dl +0.2 5mg/dlBuBc 5mg/dl Bc/0mg/d l +0.25mg/dl +0.15mg/dlBuBc 3.5mg/dl Bc/2.8mg/dl +0. 25mg/dl +0.23mg/dl SGOT/AST (test 69 UNITS/L 14-36 H code = AST) SGPT/ALT (test 19 UNITS/L <35 code = ALT) ALKALINE 202 UNITS/L 38-126 H PHOSPHATASE (test code = ALKP) [id number] 19:14:00 Test Item Value Reference Range Interpretation Comments MAGNESIUM (test code = MAG) 2.0 MG/DL 1.6-2.3 N LIPOPROTEIN LDL [id number] 19:14:00 Test Item Value Reference Range Interpretation Comments LIPOPROTEIN LDL DIRECT (test code = mg/dL 100-129 LDLDIR) NT PRO-BRAIN NATRIURETIC [id number] 19:14:00 Test Item Value Reference Range Interpretation Comments NT PRO-BRAIN NATRIURETIC PEPTI [id number] pg/mL 0-125 H (test code = PROBNP) [id number] 19:14:00 Test Item Value Reference Range Interpretation Comments TROPONIN-I (test 1.190 NG/ML 0.012-0.033 CALLED TO Song Little& code = TROPI) READBACK ON AT 1914 BY Una Orourke CBC W/MANUAL [id number] 18:53:00 Test Item Value Reference Range Interpretation Comments WHITE BLOOD CELL (test code = 14.9 K/MM3 3.8-9.8 H WBC) RED BLOOD CELL (test code = 3.13 M/MM3 3.58-4.97 L RBC) HEMOGLOBIN (test code = HGB) 9.3 G/DL 11.2-14.9 L HEMATOCRIT (test code = HCT) 30.9 % 33.2-43.5 L MEAN CELL VOLUME (test code = 99 fL 80.7-99.1 N MCV) MEAN CELL HGB (test code = MCH) 29.7 pg 27.0-34.1 N MEAN CELL HGB CONCETRATION 30.1 % 32.2-35.7 L (test code = MCHC) RED CELL DISTRIBUTION WIDTH 17.2 % 12.1-15.2 H (test code = RDW) PLATELET COUNT (test code = 285 K/MM3 129-368 N PLT) NEUTROPHIL # (test code = NT#) 12.27 K/mm3 2.0-7.6 H IMMATURE GRANULOCYTE # (test 0.45 x10 3/uL 0-0.03 H code = IG#) LYMPHOCYTE # (test code = LY#) 0.97 K/mm3 1.0-3.8 L MONOCYTE # (test code = MO#) 0.74 K/mm3 0.1-0.8 N EOSINOPHIL # (test code = EO#) 0.34 K/mm3 0.0-0.2 H BASOPHIL # (test code = BA#) 0.09 K/mm3 0.0-0.2 N NUCLEATED RBC # (test code = 0.03 K/mm3 0.0-0.1 N NRBC#) RBC MORPHOLOGY REQUIRED (test ABNORMAL code = RBCM) TOTAL CELLS COUNTED (test code 130 #CELLS = TCC) SEGMENTED NEUTROPHILS (test 74.0 % 36.2-73.8 H code = SEG) BAND NEUTROPHIL (test code = 9.8 % 0-10 N BAND) LYMPHOCYTE (test code = LYMPH) 0.8 % 12.9-45.1 L ATYPICAL LYMPH (test code = 0.8 % 0-0 H ALYMPH) MONOCYTE (test code = MON) 6.5 % 0-11 N EOSINOPHIL (test code = EOS) 8.1 % 1-7 H POLYCHROMASIA (test code = FEW NONE POLC) POIKILOCYTOSIS (test code = FEW NONE POIK) ANISOCYTOSIS (test code = SLIGHT NONE ANISO) MACROCYTOSIS (test code = MACR) FEW NONE ACANTHOCYTES (test code = ACAN) FEW NONE PLATELET ESTIMATE (test code = ADEQUATE ADEQUATE PLTEST) PLATELET MORPHOLOGY (test code NORMAL NORMAL = PLTMORPH) COMPREHENSIVE METABOLIC [id number] 18:32:00 Test Item Value Reference Range Interpretation Comments SODIUM (test code 138 MMOL/L 137-145 N = NA) POTASSIUM (test 4.6 MMOL/L 3.5-5.1 N code = K) CHLORIDE (test 102 MMOL/L 98-107 N code = CL) CARBON DIOXIDE 18 MMOL/L 22-30 L (test code = CO2) ANION GAP (test 23 MMOL/L 14-24 N code = GAP) GLUCOSE (test 144 MG/DL 74-106 H code = GLU) BLOOD UREA 88 MG/DL 7-17 H NITROGEN (test code = BUN) GLOMERULAR FILTRATION RATE (test code = GFR) CREATININE (test MG/DL 0.52-1.04 code = CREAT) TOTAL PROTEIN 6.1 G/DL 6.3-8.2 L [facility] Clinical Diagnostic (test code = has made us lesia re of PROT) newinformation regarding the potential i nterference ofEltrombopag ( a bone marrow stimulan t used to treatthrombocyt onmenia and aplastic anemia ) with specific assays on the Vitros 5600 of which Total Protein is one of thoseassays per formed in our lab.Interfe rence testing perform ed at Ortho determined that Eltrombopag does interfere with Vitros Total Protein asfollowsEltrom bopag Interference fo r Vitros Product Total Protein:======= Eltrombopag Max Observed Av g. BiasConcentrati on Concentration Concentration== ==== 2.5 mg/dl 6.0 g/dl +0.41 +0.34 3.5 mg/dl 6.0 g /dl +0.50 +0.45 5 mg/dl 6 .0 g/dl +0.73 +0.65 2.5 mg/dl 8.0 g/dl +0.44 +0.4 1 3.5 mg/dl 8.0 g/dl +0.55 +0.52 5 mg/dl 8.0 g/dl +0.86 +0.77 ALBUMIN (test 2.6 G/DL 3.5-5.0 L code = ALB) CALCIUM (test 5.9 MG/DL 8.4-10.2 LL CALLED TO HILARY Hanson& code = CA) READBACK ON 09/30 AT 1832 BY Una Orourke BILIRUBIN TOTAL 0.6 MG/DL 0.2-1.3 N Eltrombopag Interference (test code = for Vitros Prod uct TBil, BILT) BuBc: Assa y Eltrombopag Laurel lyte/ Max Observed Avg. B ias Concentration C oncentration Concentration== ====TBil 7mg/dl TBil/ 1. 2mg/dl +0.23mg.dl +0.2 0mg/dlBuBc 3.5mg/dl Bu/0.8 mg/dl +0.25mg/dl +0.2 4mg/dlBuBc 7 mg/dl Bu/14.2mg /dl +0.38mg/dl +0.2 5mg/dlBuBc 5mg/dl Bc/0mg/d l +0.25mg/dl +0.15mg/dlBuBc 3.5mg/dl Bc/2.8mg/dl +0. 25mg/dl +0.23mg/dl SGOT/AST (test 69 UNITS/L 14-36 H code = AST) SGPT/ALT (test 19 UNITS/L <35 code = ALT) ALKALINE 202 UNITS/L 38-126 H PHOSPHATASE (test code = ALKP) [id number] 18:32:00 Test Item Value Reference Range Interpretation Comments MAGNESIUM (test code = MAG) 2.0 MG/DL 1.6-2.3 N NT PRO-BRAIN NATRIURETIC [id number] 18:32:00 Test Item Value Reference Range Interpretation Comments NT PRO-BRAIN NATRIURETIC PEPTI (test pg/mL 0-125 code = PROBNP) [id number] 18:32:00 Test Item Value Reference Range Interpretation Comments TROPONIN-I (test code = TROPI) NG/ML 0.0-0.045 HCG SERUM [id number] 18:26:00 Test Item Value Reference Range Interpretation Comments HCG SERUM QUAL (test code = HCGQL) NEGATIVE NEGATIVE A PROTHROMBIN [id number] 18:18:00 Test Item Value Reference Range Interpretation Comments PROTHROMBIN TIME PATIENT 12.4 9.5-12.7 N (test code = PTP) INTERNATIONAL NORMAL RATIO 1.1 0.86-1.14 N T he INR is to be used (test code = INR) only for m onitoring oral anticoagulantth erapy. INDICATION INR VALUE ------- ------- -----1. Prophylaxis, de ep venous thrombos is, including high risk surgery. 2.0 - 3.0 2. Prophylaxis, de ep venous thrombos is, hip surgery, treatm ent for deep venous thr ombosis or pulmonary prevention of s ystemic embolism in pat ients with valvular h eart disease, atrial fibrillation, t issue heart valve, or acute myocardial infa rction. 2.0 - 3.0 3. Mechanical pros thesis heart valves, recurrent syste jose embolism. 3.0 - 4.5 CBC W/MANUAL [id number] 18:08:00 Test Item Value Reference Range Interpretation Comments WHITE BLOOD CELL (test code = 14.9 K/MM3 3.8-9.8 H WBC) RED BLOOD CELL (test code = 3.13 M/MM3 3.58-4.97 L RBC) HEMOGLOBIN (test code = HGB) 9.3 G/DL 11.2-14.9 L HEMATOCRIT (test code = HCT) 30.9 % 33.2-43.5 L MEAN CELL VOLUME (test code = 99 fL 80.7-99.1 N MCV) MEAN CELL HGB (test code = MCH) 29.7 pg 27.0-34.1 N MEAN CELL HGB CONCETRATION 30.1 % 32.2-35.7 L (test code = MCHC) RED CELL DISTRIBUTION WIDTH 17.2 % 12.1-15.2 H (test code = RDW) PLATELET COUNT (test code = 285 K/MM3 129-368 N PLT) NEUTROPHIL # (test code = NT#) 12.27 K/mm3 2.0-7.6 H IMMATURE GRANULOCYTE # (test 0.45 x10 3/uL 0-0.03 H code = IG#) LYMPHOCYTE # (test code = LY#) 0.97 K/mm3 1.0-3.8 L MONOCYTE # (test code = MO#) 0.74 K/mm3 0.1-0.8 N EOSINOPHIL # (test code = EO#) 0.34 K/mm3 0.0-0.2 H BASOPHIL # (test code = BA#) 0.09 K/mm3 0.0-0.2 N NUCLEATED RBC # (test code = 0.03 K/mm3 0.0-0.1 N NRBC#) RBC MORPHOLOGY REQUIRED (test code = RBCM) TOTAL CELLS COUNTED (test code #CELLS = TCC) SEGMENTED NEUTROPHILS (test % 36.2-73.8 code = SEG) LYMPHOCYTE (test code = LYMPH) % 12.9-45.1 MONOCYTE (test code = MON) % 0-11 PLATELET ESTIMATE (test code = ADEQUATE PLTEST) PLATELET MORPHOLOGY (test code NORMAL = PLTMORPH) - XR CHEST [id number] 17:16:00 [facility] 1990 Sex: F PatientName: CHRISTINA KEBEDE Unit No: [id number] EXAMS: CPT CODE: [id number] XR CHEST 1V [id number] INDICATION: SHORTNESS OF BREATH LOCATION: T18 COMPARISON STUDY: Chest radiograph dated February 17, 2021. FINDINGS: Single view of the chest. The inferior aspects of both lungs are excluded from the [id number] which limits evaluation. Significant interval increase in diffuse hazy opacities throughout both lungs. No pneumothorax. The heart size and pulmonary vasculature are obscured. No acute osseous findings. IMPRESSION: Limited examination as detailed above. Significant interval increase in diffuse hazy opacities throughout both lungs which may represent worsening atelectasis/pulmonary edema or pneumonia. at 1716 Reported and signed by: Steven Oropeza MD CC: Saran Lugo MD Technologist: Danyel Mora (RT) (R) Transcrpt Date/Tm/Trnsp:02/18/2021 (171) [id number] Orig Print D/T: S: 02/18/2021 ([id number]) [facility] NAME: CHRISTINA KEBEDE [id number] [address] PHYS: ELIS.Viji - [place] [address] : 1990 AGE: 30 SEX: F LOC: [id number].I16 A PHONE #: [phone] EXAM DATE: 02/18/2021 STATUS: ADM IN FAX #: [phone] RADIOLOGY NO: PAGE 1 Signed Report ARTERIAL BLOOD [id number] 16:59:00 Test Item Value Reference Range Interpretation Comments ARTERIAL BLOOD GAS PH 7.14 mmHg 7.35-7.45 LL (test code = PHA) ARTERIAL BLOOD GAS 49.9 mmHg 35.0-45.0 H PCO2 (test code = PCO2A) ARTERIAL BLOOD GAS 117.1 mmol/L 80.0-100.0 H PO2 (test code = PO2A) BICARBONATE TOTAL 16.6 mmol/L 20.0-26.0 L HCO3 (test code = HCO3) BASE EXCESS (test -12.5 mmol/L -3.0-3.0 L code = KENNETH) ABG O2 SATURATION 97.0 % 95.0-100.0 N All critic al values (test code = SATA) report to and readback by ANNA VALLEJO by NOVA CASON at 02/18/2021 4: 58:03 PM ABG DELIVERY (test BIPAP code = FABIANO) ABG PEEP (test code = 10.0 cmH2O PEEPA) ABG PRESSURE SUPPORT 14 cmH2O (test code = PSABG) ABG TEMPERATURE (test 37.0 C See_Comment [Auto mated message] code = TEMPA) The system [employer] generated this result transmit rosalba reference range : 37. The reference r breana was not used to interpret this result as normal/abnormal . ABG SITE (test code = RB SITEA) ALLENS TEST (test NA CHECK code = ALLENS) FIO2 (test code = 100 % COHBGFFIO2) PaO2/[id number] 16:59:00 Test Item Value Reference Range Interpretation Comments PaO2/FiO2 (test code = [id number]) 117.10 mm/Hg ARTERIAL BLOOD [id number] 16:58:00 Test Item Value Reference Range Interpretation Comments ARTERIAL BLOOD GAS PH 7.14 mmHg 7.35-7.45 LL (test code = PHA) ARTERIAL BLOOD GAS 49.9 mmHg 35.0-45.0 H PCO2 (test code = PCO2A) ARTERIAL BLOOD GAS 117.1 mmol/L 80.0-100.0 H PO2 (test code = PO2A) BICARBONATE TOTAL 16.6 mmol/L 20.0-26.0 L HCO3 (test code = HCO3) BASE EXCESS (test -12.5 mmol/L -3.0-3.0 L code = KENNETH) ABG O2 SATURATION 97.0 % 95.0-100.0 N All critic al values (test code = SATA) report to and readback by ANNA VALLEJO by NOVA CASON at 02/18/2021 4: 58:03 PM ABG DELIVERY (test BIPAP code = FABIANO) ABG PEEP (test code = 10.0 cmH2O PEEPA) ABG PRESSURE SUPPORT 14 cmH2O (test code = PSABG) ABG TEMPERATURE (test 37.0 C See_Comment [Auto mated message] code = TEMPA) The system [employer] generated this result transmit rosalba reference range : 37. The reference r breana was not used to interpret this result as normal/abnormal . ABG SITE (test code = RB SITEA) ALLENS TEST (test NA CHECK code = ALLENS) FIO2 (test code = 100 % COHBGFFIO2) PaO2/[id number] 16:58:00 Test Item Value Reference Range Interpretation Comments PaO2/FiO2 (test code = [id number]) mm/Hg LACTIC [id number] 16:31:00 Test Item Value Reference Range Interpretation Comments LACTIC ACID (test code = LACT) 1.7 MMOL/L 0.7-2.1 N CBC W/MANUAL [id number] 10:11:00 Test Item Value Reference Range Interpretation Comments WHITE BLOOD CELL 8.6 K/mm3 4.5-12.5 N (test code = WBC) RED BLOOD CELL (test 3.00 mill/mm3 3.7-5.2 L code = RBC) HEMOGLOBIN (test 8.8 gram/dL 11.5-15.5 L code = HGB) HEMATOCRIT (test 28.4 % 36.0-46.0 L code = HCT) MEAN CELL VOLUME 94.7 fL 80-98 N (test code = MCV) MEAN CELL HGB (test 29.3 picogram 27.0-33.0 N code = MCH) MEAN CELL HGB 31.0 gram/dL 33.0-36.0 L CONCETRATION (test code = MCHC) RED CELL 17.0 % 11.6-16.2 H DISTRIBUTION WIDTH (test code = RDW) RED CELL 56.7 fL 37.0-51.0 H DISTRIBUTION WIDTH SD (test code = RDW-SD) PLATELET COUNT (test 267 K/mm3 150-450 N code = PLT) MEAN PLATELET VOLUME 10.9 fL 6.7-11.0 N (test code = MPV) IMMATURE GRANULOCYTE 7.1 % 0.0-5.0 H "The ap pearance of % (test code = IG%) immature granulocytes (myelocytes,pro -my elocytes, meta-myelocytes ) in the peripher al blood ofnon- individuals can indicate a response toinfection, inflammation, o r other stimulus to the bonemarrow" NUCLEATED RBC % 0.7 % 0-0 H (test code = NRBC%) NEUTROPHIL # (test 5.10 K/mm3 1.8-7.7 N code = NT#) IMMATURE GRANULOCYTE 0.61 x10 3/uL 0-0.03 H # (test code = IG#) LYMPHOCYTE # (test 1.51 K/mm3 1.0-5.0 N code = LY#) MONOCYTE # (test 0.80 K/mm3 0-0.8 N code = MO#) EOSINOPHIL # (test 0.58 K/mm3 0.0-0.5 H code = EO#) BASOPHIL # (test 0.04 K/mm3 0.0-0.2 N code = BA#) NUCLEATED RBC # 0.06 K/mm3 0.0-0.1 N (test code = NRBC#) MANUAL DIFF REQUIRED YES (test code = MDIFF) STAIN ACCEPTABILITY STAIN ACCEPTABLE (test code = STN ACCEPTABLE) TOTAL CELLS COUNTED 120 #CELLS (test code = TCC) SEGMENTED 63.4 % 39-69 N NEUTROPHILS (test code = SEG) BAND NEUTROPHIL 1.7 % 0-10 N (test code = BAND) LYMPHOCYTE (test 8.3 % 25-55 L code = LYMPH) REACTIVE LYMPH (test 0 % code = RELYMPH) MONOCYTE (test code 8.3 % 0-10 N = MON) EOSINOPHIL (test 13.4 % 0.0-5.0 H code = EOS) BASOPHIL (test code 0.8 % 0-1.0 N = BASO) METAMYELOCYTE (test 0.8 % 0-0 H code = META) MYELOCYTE (test code 3.3 % 0.0-0.0 H = MYELO) PROMYELOCYTE (test 0 % 0-0 N code = PROM) POLYCHROMASIA (test 2+ code = POLC) ANISOCYTOSIS (test 1+ code = ANISO) MACROCYTOSIS (test 1+ code = MACR) PLATELET ESTIMATE ADEQUATE (test code = PLTEST) PLATELET MORPHOLOGY SIZE VARIABLE (test code = PLTMORPH) IMMATURE FORMS (test 0 % 0-0 N code = IMMAT) COVID 19 Asymptomatic IH [id number] 09:14:00 Test Item Value Reference Range Interpretation Comments COVID 19 Asymptomatic IH AG (test NEGATIVE code = COVNONPUIAG) CBC W/MANUAL [id number] 09:10:00 Test Item Value Reference Range Interpretation Comments WHITE BLOOD CELL 8.6 K/mm3 4.5-12.5 N (test code = WBC) RED BLOOD CELL (test 3.00 mill/mm3 3.7-5.2 L code = RBC) HEMOGLOBIN (test code 8.8 gram/dL 11.5-15.5 L = HGB) HEMATOCRIT (test code 28.4 % 36.0-46.0 L = HCT) MEAN CELL VOLUME 94.7 fL 80-98 N (test code = MCV) MEAN CELL HGB (test 29.3 picogram 27.0-33.0 N code = MCH) MEAN CELL HGB 31.0 gram/dL 33.0-36.0 L CONCETRATION (test code = MCHC) RED CELL DISTRIBUTION 17.0 % 11.6-16.2 H WIDTH (test code = RDW) RED CELL DISTRIBUTION 56.7 fL 37.0-51.0 H WIDTH SD (test code = RDW-SD) PLATELET COUNT (test 267 K/mm3 150-450 N code = PLT) MEAN PLATELET VOLUME 10.9 fL 6.7-11.0 N (test code = MPV) IMMATURE GRANULOCYTE 7.1 % 0.0-5.0 H "The ap pearance of % (test code = IG%) immature granulocytes (myelocytes,pro -mye locytes, meta-myelocytes ) in the peripheral blood ofnon- individuals can indicate a resp onse toinfection, inflammation, o r other stimulus to the bonemarrow" NUCLEATED RBC % (test 0.7 % 0-0 H code = NRBC%) NEUTROPHIL # (test 5.10 K/mm3 1.8-7.7 N code = NT#) IMMATURE GRANULOCYTE 0.61 x10 3/uL 0-0.03 H # (test code = IG#) LYMPHOCYTE # (test 1.51 K/mm3 1.0-5.0 N code = LY#) MONOCYTE # (test code 0.80 K/mm3 0-0.8 N = MO#) EOSINOPHIL # (test 0.58 K/mm3 0.0-0.5 H code = EO#) BASOPHIL # (test code 0.04 K/mm3 0.0-0.2 N = BA#) NUCLEATED RBC # (test 0.06 K/mm3 0.0-0.1 N code = NRBC#) MANUAL DIFF REQUIRED YES (test code = MDIFF) STAIN ACCEPTABILITY (test code = STN ACCEPTABLE) TOTAL CELLS COUNTED #CELLS (test code = TCC) SEGMENTED NEUTROPHILS % 39-69 (test code = SEG) LYMPHOCYTE (test code % 25-55 = LYMPH) MONOCYTE (test code = % 0-10 MON) EOSINOPHIL (test code % 0.0-5.0 = EOS) CABOT RINGS (test code = CAB) MORPHOLOGY COMMENT (test code = MOC) PLATELET ESTIMATE (test code = PLTEST) PLATELET MORPHOLOGY (test code = PLTMORPH) CBC W/MANUAL [id number] 09:10:00 Test Item Value Reference Range Interpretation Comments WHITE BLOOD CELL 8.6 K/mm3 4.5-12.5 N (test code = WBC) RED BLOOD CELL (test 3.00 mill/mm3 3.7-5.2 L code = RBC) HEMOGLOBIN (test code 8.8 gram/dL 11.5-15.5 L = HGB) HEMATOCRIT (test code 28.4 % 36.0-46.0 L = HCT) MEAN CELL VOLUME 94.7 fL 80-98 N (test code = MCV) MEAN CELL HGB (test 29.3 picogram 27.0-33.0 N code = MCH) MEAN CELL HGB 31.0 gram/dL 33.0-36.0 L CONCETRATION (test code = MCHC) RED CELL DISTRIBUTION 17.0 % 11.6-16.2 H WIDTH (test code = RDW) RED CELL DISTRIBUTION 56.7 fL 37.0-51.0 H WIDTH SD (test code = RDW-SD) PLATELET COUNT (test 267 K/mm3 150-450 N code = PLT) MEAN PLATELET VOLUME 10.9 fL 6.7-11.0 N (test code = MPV) IMMATURE GRANULOCYTE 7.1 % 0.0-5.0 H "The ap pearance of % (test code = IG%) immature granulocytes (myelocytes,pro -mye locytes, meta-myelocytes ) in the peripheral blood ofnon- individuals can indicate a resp onse toinfection, inflammation, o r other stimulus to the bonemarrow" NUCLEATED RBC % (test 0.7 % 0-0 H code = NRBC%) NEUTROPHIL # (test 5.10 K/mm3 1.8-7.7 N code = NT#) IMMATURE GRANULOCYTE 0.61 x10 3/uL 0-0.03 H # (test code = IG#) LYMPHOCYTE # (test 1.51 K/mm3 1.0-5.0 N code = LY#) MONOCYTE # (test code 0.80 K/mm3 0-0.8 N = MO#) EOSINOPHIL # (test 0.58 K/mm3 0.0-0.5 H code = EO#) BASOPHIL # (test code 0.04 K/mm3 0.0-0.2 N = BA#) NUCLEATED RBC # (test 0.06 K/mm3 0.0-0.1 N code = NRBC#) MANUAL DIFF REQUIRED YES (test code = MDIFF) STAIN ACCEPTABILITY (test code = STN ACCEPTABLE) TOTAL CELLS COUNTED #CELLS (test code = TCC) SEGMENTED NEUTROPHILS % 39-69 (test code = SEG) LYMPHOCYTE (test code % 25-55 = LYMPH) MONOCYTE (test code = % 0-10 MON) EOSINOPHIL (test code % 0.0-5.0 = EOS) CABOT RINGS (test code = CAB) MORPHOLOGY COMMENT (test code = MOC) PLATELET ESTIMATE (test code = PLTEST) PLATELET MORPHOLOGY (test code = PLTMORPH) CBC W/MANUAL [id number] 09:10:00 Test Item Value Reference Range Interpretation Comments WHITE BLOOD CELL 8.6 K/mm3 4.5-12.5 N (test code = WBC) RED BLOOD CELL (test 3.00 mill/mm3 3.7-5.2 L code = RBC) HEMOGLOBIN (test code 8.8 gram/dL 11.5-15.5 L = HGB) HEMATOCRIT (test code 28.4 % 36.0-46.0 L = HCT) MEAN CELL VOLUME 94.7 fL 80-98 N (test code = MCV) MEAN CELL HGB (test 29.3 picogram 27.0-33.0 N code = MCH) MEAN CELL HGB 31.0 gram/dL 33.0-36.0 L CONCETRATION (test code = MCHC) RED CELL DISTRIBUTION 17.0 % 11.6-16.2 H WIDTH (test code = RDW) RED CELL DISTRIBUTION 56.7 fL 37.0-51.0 H WIDTH SD (test code = RDW-SD) PLATELET COUNT (test 267 K/mm3 150-450 N code = PLT) MEAN PLATELET VOLUME 10.9 fL 6.7-11.0 N (test code = MPV) IMMATURE GRANULOCYTE 7.1 % 0.0-5.0 H "The ap pearance of % (test code = IG%) immature granulocytes (myelocytes,pro -mye locytes, meta-myelocytes ) in the peripheral blood ofnon- individuals can indicate a resp onse toinfection, inflammation, o r other stimulus to the bonemarrow" NUCLEATED RBC % (test 0.7 % 0-0 H code = NRBC%) NEUTROPHIL # (test 5.10 K/mm3 1.8-7.7 N code = NT#) IMMATURE GRANULOCYTE 0.61 x10 3/uL 0-0.03 H # (test code = IG#) LYMPHOCYTE # (test 1.51 K/mm3 1.0-5.0 N code = LY#) MONOCYTE # (test code 0.80 K/mm3 0-0.8 N = MO#) EOSINOPHIL # (test 0.58 K/mm3 0.0-0.5 H code = EO#) BASOPHIL # (test code 0.04 K/mm3 0.0-0.2 N = BA#) NUCLEATED RBC # (test 0.06 K/mm3 0.0-0.1 N code = NRBC#) MANUAL DIFF REQUIRED YES (test code = MDIFF) STAIN ACCEPTABILITY (test code = STN ACCEPTABLE) TOTAL CELLS COUNTED #CELLS (test code = TCC) SEGMENTED NEUTROPHILS % 39-69 (test code = SEG) LYMPHOCYTE (test code % 25-55 = LYMPH) MONOCYTE (test code = % 0-10 MON) EOSINOPHIL (test code % 0.0-5.0 = EOS) MORPHOLOGY COMMENT (test code = MOC) PLATELET ESTIMATE (test code = PLTEST) PLATELET MORPHOLOGY (test code = PLTMORPH) CBC W/MANUAL [id number] 09:10:00 Test Item Value Reference Range Interpretation Comments WHITE BLOOD CELL 8.6 K/mm3 4.5-12.5 N (test code = WBC) RED BLOOD CELL (test 3.00 mill/mm3 3.7-5.2 L code = RBC) HEMOGLOBIN (test code 8.8 gram/dL 11.5-15.5 L = HGB) HEMATOCRIT (test code 28.4 % 36.0-46.0 L = HCT) MEAN CELL VOLUME 94.7 fL 80-98 N (test code = MCV) MEAN CELL HGB (test 29.3 picogram 27.0-33.0 N code = MCH) MEAN CELL HGB 31.0 gram/dL 33.0-36.0 L CONCETRATION (test code = MCHC) RED CELL DISTRIBUTION 17.0 % 11.6-16.2 H WIDTH (test code = RDW) RED CELL DISTRIBUTION 56.7 fL 37.0-51.0 H WIDTH SD (test code = RDW-SD) PLATELET COUNT (test 267 K/mm3 150-450 N code = PLT) MEAN PLATELET VOLUME 10.9 fL 6.7-11.0 N (test code = MPV) IMMATURE GRANULOCYTE 7.1 % 0.0-5.0 H "The ap pearance of % (test code = IG%) immature granulocytes (myelocytes,pro -mye locytes, meta-myelocytes ) in the peripheral blood ofnon- individuals can indicate a resp onse toinfection, inflammation, o r other stimulus to the bonemarrow" NUCLEATED RBC % (test 0.7 % 0-0 H code = NRBC%) NEUTROPHIL # (test 5.10 K/mm3 1.8-7.7 N code = NT#) IMMATURE GRANULOCYTE 0.61 x10 3/uL 0-0.03 H # (test code = IG#) LYMPHOCYTE # (test 1.51 K/mm3 1.0-5.0 N code = LY#) MONOCYTE # (test code 0.80 K/mm3 0-0.8 N = MO#) EOSINOPHIL # (test 0.58 K/mm3 0.0-0.5 H code = EO#) BASOPHIL # (test code 0.04 K/mm3 0.0-0.2 N = BA#) NUCLEATED RBC # (test 0.06 K/mm3 0.0-0.1 N code = NRBC#) MANUAL DIFF REQUIRED YES (test code = MDIFF) STAIN ACCEPTABILITY (test code = STN ACCEPTABLE) TOTAL CELLS COUNTED #CELLS (test code = TCC) SEGMENTED NEUTROPHILS % 39-69 (test code = SEG) LYMPHOCYTE (test code % 25-55 = LYMPH) MONOCYTE (test code = % 0-10 MON) MORPHOLOGY COMMENT (test code = MOC) PLATELET ESTIMATE (test code = PLTEST) PLATELET MORPHOLOGY (test code = PLTMORPH) CBC W/MANUAL [id number] 09:10:00 Test Item Value Reference Range Interpretation Comments WHITE BLOOD CELL 8.6 K/mm3 4.5-12.5 N (test code = WBC) RED BLOOD CELL (test 3.00 mill/mm3 3.7-5.2 L code = RBC) HEMOGLOBIN (test code 8.8 gram/dL 11.5-15.5 L = HGB) HEMATOCRIT (test code 28.4 % 36.0-46.0 L = HCT) MEAN CELL VOLUME 94.7 fL 80-98 N (test code = MCV) MEAN CELL HGB (test 29.3 picogram 27.0-33.0 N code = MCH) MEAN CELL HGB 31.0 gram/dL 33.0-36.0 L CONCETRATION (test code = MCHC) RED CELL DISTRIBUTION 17.0 % 11.6-16.2 H WIDTH (test code = RDW) RED CELL DISTRIBUTION 56.7 fL 37.0-51.0 H WIDTH SD (test code = RDW-SD) PLATELET COUNT (test 267 K/mm3 150-450 N code = PLT) MEAN PLATELET VOLUME 10.9 fL 6.7-11.0 N (test code = MPV) IMMATURE GRANULOCYTE 7.1 % 0.0-5.0 H "The ap pearance of % (test code = IG%) immature granulocytes (myelocytes,pro -mye locytes, meta-myelocytes ) in the peripheral blood ofnon- individuals can indicate a resp onse toinfection, inflammation, o r other stimulus to the bonemarrow" NUCLEATED RBC % (test 0.7 % 0-0 H code = NRBC%) NEUTROPHIL # (test 5.10 K/mm3 1.8-7.7 N code = NT#) IMMATURE GRANULOCYTE 0.61 x10 3/uL 0-0.03 H # (test code = IG#) LYMPHOCYTE # (test 1.51 K/mm3 1.0-5.0 N code = LY#) MONOCYTE # (test code 0.80 K/mm3 0-0.8 N = MO#) EOSINOPHIL # (test 0.58 K/mm3 0.0-0.5 H code = EO#) BASOPHIL # (test code 0.04 K/mm3 0.0-0.2 N = BA#) NUCLEATED RBC # (test 0.06 K/mm3 0.0-0.1 N code = NRBC#) MANUAL DIFF REQUIRED YES (test code = MDIFF) STAIN ACCEPTABILITY (test code = STN ACCEPTABLE) TOTAL CELLS COUNTED #CELLS (test code = TCC) SEGMENTED NEUTROPHILS % 39-69 (test code = SEG) LYMPHOCYTE (test code % 25-55 = LYMPH) MONOCYTE (test code = % 0-10 MON) EOSINOPHIL (test code % 0.0-5.0 = EOS) CABOT RINGS (test code = CAB) MORPHOLOGY COMMENT (test code = MOC) PLATELET ESTIMATE (test code = PLTEST) PLATELET MORPHOLOGY (test code = PLTMORPH) BASIC METABOLIC [id number] 09:05:00 Test Item Value Reference Range Interpretation Comments SODIUM (test code = 137 mmol/L 136-145 N NA) POTASSIUM (test code 5.0 mmol/L 3.5-5.1 N = K) CHLORIDE (test code 102.0 mmol/L 98-107 N = CL) CARBON DIOXIDE (test 19.0 mmol/L 21-32 L code = CO2) ANION GAP (test code 21.0 10-20 H = GAP) GLUCOSE (test code = 105 mg/dL 74-106 N GLU) BLOOD UREA NITROGEN 88 mg/dL 7-18 H (test code = BUN) GLOMERULAR 2 mL/min See_Comment Estimated GFR b y FILTRATION RATE using Modifi ed MDRD (test code = GFR) formula.Ch ronic kidney disease is defined as eith er kidney damageor GFR <60 mL/min/1.73 m2 for >3 months. [Automated mess age] The system [facility] [employer] generated this result transmitted ref erence range: >=60. Th e reference range was not used to int erpret this result as normal/abnormal . CREATININE (test 19.90 mg/dL 0.55-1.02 H Note christian ge in code = CREAT) reference rang e due to change in reagent. BUN/CREATININE RATIO 4.4 10-20 L (test code = BUN/CREA) CALCIUM (test code = 5.9 mg/dL 8.5-10.1 LL Results called to ZENA) [id number] by 11PE [id number] 02/17/21 0902Cr itical results verifie d and read back by Nu rse? YES HEPATIC FUNCTION [id number] 09:05:00 Test Item Value Reference Range Interpretation Comments TOTAL PROTEIN (test 6.6 gram/dL 6.4-8.2 N code = PROT) ALBUMIN (test code = 2.2 g/dL 3.4-5.0 L ALB) GLOBULIN (test code = 4.4 gram/dL 2.7-4.2 H GLOB) ALBUMIN/GLOBULIN RATIO 0.5 0.75-1.50 L (test code = A/G) BILIRUBIN TOTAL (test < 0.20 mg/dL 0.0-1.0 N code = BILT) BILIRUBIN DIRECT (test < 0.10 mg/dL 0.0-0.20 N code = BILD) SGOT/AST (test code = 75 IUnit/L 15-37 H AST) SGPT/ALT (test code = 25 IUnit/L 12-78 N ALT) ALKALINE PHOSPHATASE 247 IUnit/L 45-117 H Note change in TOTAL (test code = reference range due ALKP) to change in reagent. HCG SERUM [id number] 09:05:00 Test Item Value Reference Range Interpretation Comments HCG SERUM QUAL (test NEGATIVE NEGATIVE This HC GQL test is NOT code = HCGQL) applicable for MALE patients.Check with nurse about probable order error.If Tumor Marker Test needed, nu e should order test "HCG TU"(Test #550.47663)---- - [id number] 09:05:00 Test Item Value Reference Range Interpretation Comments TROPONIN-I (test 0.126 ng/mL 0-0.045 HH Results tian led to code = TROPI) [id number] by 11 [id number] 02/17/21 0902Cr itical results verifie d and read back by Rocio rse? YES LACTIC [id number] 08:59:00 Test Item Value Reference Range Interpretation Comments LACTIC ACID (test code = LACT) 0.5 mmol/L 0.4-1.9 N BASIC METABOLIC [id number] 08:56:00 Test Item Value Reference Range Interpretation Comments SODIUM (test code = NA) mmol/L 136-145 POTASSIUM (test code = mmol/L 3.5-5.1 K) CHLORIDE (test code = mmol/L 98-107 CL) CARBON DIOXIDE (test mmol/L 21-32 code = CO2) ANION GAP (test code = 10-20 GAP) GLUCOSE (test code = mg/dL 74-106 GLU) BLOOD UREA NITROGEN mg/dL 7-18 (test code = BUN) GLOMERULAR FILTRATION mL/min See_Comment [Auto mated message] RATE (test code = GFR) The s [employer] which generated this result transmitted ref erence range: >=60. Th e reference range was not used to interpr et this result as normal/abnormal . CREATININE (test code = mg/dL 0.55-1.02 CREAT) BUN/CREATININE RATIO 10-20 (test code = BUN/CREA) CALCIUM (test code = mg/dL 8.5-10.1 CA) HEPATIC FUNCTION [id number] 08:56:00 Test Item Value Reference Range Interpretation Comments TOTAL PROTEIN (test code = PROT) gram/dL 6.4-8.2 ALBUMIN (test code = ALB) g/dL 3.4-5.0 GLOBULIN (test code = GLOB) gram/dL 2.7-4.2 ALBUMIN/GLOBULIN RATIO (test code = 0.75-1.50 A/G) BILIRUBIN TOTAL (test code = BILT) mg/dL 0.0-1.0 BILIRUBIN DIRECT (test code = BILD) mg/dL 0.0-0.20 SGOT/AST (test code = AST) IUnit/L 15-37 SGPT/ALT (test code = ALT) IUnit/L 12-78 ALKALINE PHOSPHATASE TOTAL (test IUnit/L 45-117 code = ALKP) HCG SERUM [id number] 08:56:00 Test Item Value Reference Range Interpretation Comments HCG SERUM QUAL (test NEGATIVE NEGATIVE This HC GQL test is NOT code = HCGQL) applicable for MALE patients.Check with nurse about probable order error.If Tumor Marker Test needed, nu rse should order test "HCG TU"(Test #550.59620)---- - [id number] 08:56:00 Test Item Value Reference Range Interpretation Comments TROPONIN-I (test code = TROPI) ng/mL 0-0.045 - XR CHEST 1 [id number] 08:43:00 [facility] 1990 Sex: F FAX: Delilah Perales [phone] [place]: St: [facility] FAX: Anna Munoz NP Name: CHRISTINA KEBEDE [facility] : 1990 Age/S: 30/F [address] [facility] Unit #: [id number] Loc: [place] [address] Phys: Anna Munoz NP Acct: [id number] Dis Date: Status: REG ER PHONE #: [phone] Exam Date: 814 FAX #: [phone] Reason: CODE SEPSIS EXAMS: CPT CODE: [id number] XR CHEST 1 V 64131 EXAM: Chest x-ray, one view; INFORMATION: Code sepsis; FINDINGS: Patchy infiltrates in both lower lobes. Upper lobes are well aerated. No effusions; no pneumothorax. Heart size within normal limits. IMPRESSION: Patchy lower lobe infiltrates. Location code: GW at 0843 Reported and signed by: Zachary Castorena M.D. CC: Mendez Sanon; Anna Munoz NP Technologist: ROLANDO NORIEGA(R) Trnscrd Date/Time/By: 02/17/2021 (0843) : By: VinceGRW Orig Print D/T: S: 02/17/2021 (0847) PAGE 1 Signed Report- DUP VEIN UNI LT 2021-02-12 11:50:00 [facility] : 1990 Sex: FPatient Name: CHRISTINA KEBEDE Unit No: [id number] EXAMS: CPT CODE: [id number] [address] EXAM: Ultrasound Left upper extremity venous Doppler HISTORY: swelling, concern for dvt LOCATION: H50 TECHNIQUE: Grayscale real-time B-mode imaging with color flow and spectral flow Doppler analysis was performed of the Left upper extremity. COMPARISON: Left upper extremity venous Doppler dated 02/11/2021 FINDINGS: There is an partially occlusive superficial venous thrombosis in the left cephalic veinat the antecubital area. Rest of the visualized venous structures of the left upper extremity are patent. IMPRESSION: 1. Partially occlusive superficial venous thrombosis in the left cephalic vein at the antecubital area. 2. No deep venous thrombosis identified of the left upper extremity. at 1150 Reported and signed by: YONG BO M.D. CC: Alec Perry MD; Chan Neal MD; Anastasia Ocampo DO Technologist: Alessandra Carrington Probe: Trscr Dt/Tm: 02/12/2021 (1150) by:[email or web address] Printed Date/Time: 02/12/2021 (8413) Name: CHRISTINA KEBEDE [facility] Phys: Chan Daley MD [address] :1990 Age: 30 Sex: [place] [address] Loc: P.0616 1 Exam Date: 02/12/2021 Status: ADM IN PH: FAX: PAGE 1 Signed [id number] 10:02:00 Test Item Value Reference Range Interpretation Comments CALCIUM (test code = 5.9 mg/dL 8.7-10.4 L Critica l Value reported CA) toFirst Name:CURLY MIRAMONTES Last Name:FORREST PIZARRO READ BACK AND VERIFIEDby ROBERTA BROOKS, on 02/12/21, @ 100 2.Please note: New Refer ence Range Dec 2020 [id number] 10:00:00 Test Item Value Reference Range Interpretation Comments ALBUMIN (test code = 2.4 g/dL 3.2-4.8 L Please note: New ALB) Reference Range Dec 2020 BASIC METABOLIC [id number] 04:51:00 Test Item Value Reference Range Interpretation Comments SODIUM (test code = 137 mmol/L 136-145 N Please n ote: New NA) Reference Range Dec 2020 POTASSIUM (test code 4.1 mmol/L 3.5-5.1 N = K) CHLORIDE (test code 101 mmol/L 98-107 N Please n ote: New = CL) Reference Range Dec 2020 CARBON DIOXIDE (test 19 mmol/L 20-31 L Please note: New code = CO2) Reference Range Dec 2020 GLUCOSE (test code = 80 mg/dL 74-106 N Please note: New GLU) Reference Range Dec 2020 BLOOD UREA NITROGEN 91 mg/dL 9-23 H Please n ote: New (test code = BUN) Reference Range Dec 2020 GLOMERULAR 3 >60 L The estimated FILTRATION RATE glomerular f iltration (test code = GFR) rate is co mputed usingpatient ra ce, age (>18), sex, and serum creatinine. If anyof the needed data elements are mi ssing the Laboratory cannot compute an jeffrey mation of the glomerul ar filtration rate . CREATININE (test 18.30 mg/dL 0.55-1.02 Critical Va lue code = CREAT) reported toFir st Name:REVA Last Name:PHI HOWE READ BACK AND VERIFIEDby ROBERTA FRANCO, on 02/12/21, @ 7135.Please not e: New Reference Range Dec 2020 CALCIUM (test code = 6.2 mg/dL 8.7-10.4 L Please note: New CA) Reference Range Dec 2020 BASIC METABOLIC [id number] 04:39:00 Test Item Value Reference Range Interpretation Comments SODIUM (test code = mmol/L 136-145 NA) POTASSIUM (test code = mmol/L 3.5-5.1 K) CHLORIDE (test code = 101 mmol/L 98-107 N Please note: New CL) Reference Range Dec 2020 CARBON DIOXIDE (test mmol/L 20-31 code = CO2) GLUCOSE (test code = mg/dL 74-106 GLU) BLOOD UREA NITROGEN mg/dL 9-23 (test code = BUN) GLOMERULAR FILTRATION >60 RATE (test code = GFR) CREATININE (test code mg/dL 0.55-1.02 = CREAT) CALCIUM (test code = mg/dL 8.7-10.4 CA) CBC W/AUTO [id number] 04:35:00 Test Item Value Reference Range Interpretation Comments WHITE BLOOD CELL (test code = 7.4 x10 3/uL 4.8-10.8 N WBC) RED BLOOD CELL (test code = 3.36 x10 6/uL 4.20-5.40 L RBC) HEMOGLOBIN (test code = HGB) 9.7 g/dL 12.0-16.0 L HEMATOCRIT (test code = HCT) 30.8 % 37.0-47.0 L MEAN CELL VOLUME (test code = 91.7 fL 81.0-99.0 N MCV) MEAN CELL HGB (test code = MCH) 28.9 pg 27-31 N MEAN CELL HGB CONCENTRATION 31.5 G/DL 33-36.5 L (test code = MCHC) RED CELL DISTRIBUTION WIDTH 16.5 % 12.9-16.9 N (test code = RDW) PLATELET COUNT (test code = 174 x10 3/uL 150-440 N PLT) MEAN PLATELET VOLUME (test code 11.3 fL 8.9-12.4 N = MPV) NEUTROPHIL % (test code = NT%) 67.9 % 42.2-75.2 N LYMPHOCYTE % (test code = LY%) 16.3 % 20.5-51.1 L MONOCYTE % (test code = MO%) 6.7 % 1.7-9.3 N EOSINOPHIL % (test code = EO%) 6.3 % 0.0-7.0 N BASOPHIL % (test code = BA%) 0.5 % 0-2.5 N NEUTROPHIL # (test code = NT#) 5.02 x10 3/uL 1.80-7.70 N LYMPHOCYTE # (test code = LY#) 1.21 x10 3/uL 1.00-4.80 N MONOCYTE # (test code = MO#) 0.50 x10 3/uL 0.00-0.80 N EOSINOPHIL # (test code = EO#) 0.47 x10 3/uL 0.00-0.45 H BASOPHIL # (test code = BA#) 0.04 x10 3/uL 0.0-0.20 N AB HEPATITIS B [id number] 21:19:00 Test Item Value Reference Range Interpretation Comments AB HEPATITIS B SURFACE (test code = REACTIVE Nonreactive A HBSAB) AG HEPATITIS B [id number] 21:19:00 Test Item Value Reference Range Interpretation Comments AG HEPATITIS B SURFACE (test code Nonreactive Nonreactive = HBSAG) AB HEPATITIS B [id number] 21:19:00 Test Item Value Reference Range Interpretation Comments AB HEPATITIS B CORE (test code = Nonreactive Nonreactive HBCAB) AB HEPATITIS [id number] 21:19:00 Test Item Value Reference Range Interpretation Comments AB HEPATITIS C (test code = Nonreactive Nonreactive HCVAB) [id number] 13:39:00 Test Item Value Reference Range Interpretation Comments CALCIUM (test code = 7.0 mg/dL 8.7-10.4 L Please note: New CA) Reference Range Dec 2020 Spec Comments: DRAW AFTER 2ND DOSE OF TIAN GLUCONATE GIVENBASIC METABOLIC PANEL 2021-02-11 04:54:00 Test Item Value Reference Range Interpretation Comments SODIUM (test code = 136 mmol/L 136-145 N Please n ote: New NA) Reference Range Dec 2020 POTASSIUM (test code 4.4 mmol/L 3.5-5.1 N = K) CHLORIDE (test code 104 mmol/L 98-107 N Please n ote: New = CL) Reference Range Dec 2020 CARBON DIOXIDE (test 17 mmol/L 20-31 L Please note: New code = CO2) Reference Range Dec 2020 GLUCOSE (test code = 86 mg/dL 74-106 N Please note: New GLU) Reference Range Dec 2020 BLOOD UREA NITROGEN 99 mg/dL 9-23 H Please n ote: New (test code = BUN) Reference Range Dec 2020 GLOMERULAR 3 >60 L The estimated FILTRATION RATE glomerular f iltration (test code = GFR) rate is co mputed usingpatient ra ce, age (>18), sex, and serum creatinine. If anyof the needed data elements are mi ssing the Laboratory cannot compute an jeffrey mation of the glomerul ar filtration rate . CREATININE (test 19.30 mg/dL 0.55-1.02 Critical Va lue code = CREAT) reported toFir st Name:HELLEN quiñones Name:KIARA LTS READ BACK AND VERIFIEDby P.LA B.CAR1, on 02/11/21, @ 0449.Please not e: New Reference Range Dec 2020 CALCIUM (test code = 5.7 mg/dL 8.7-10.4 LL Critica l Value CA) reported toFirs t Name:HELLEN quiñones Name:JazzVERONICATERESA ULTS READ BACK AND VERIFIEDby P.LA B.CAR1, on 02/11/21, @ 0449. Please note: Ne w Reference Range Dec 2020 CBC W/AUTO [id number] 04:25:00 Test Item Value Reference Range Interpretation Comments WHITE BLOOD CELL (test code = 7.8 x10 3/uL 4.8-10.8 N WBC) RED BLOOD CELL (test code = 3.17 x10 6/uL 4.20-5.40 L RBC) HEMOGLOBIN (test code = HGB) 9.1 g/dL 12.0-16.0 L HEMATOCRIT (test code = HCT) 29.4 % 37.0-47.0 L MEAN CELL VOLUME (test code = 92.7 fL 81.0-99.0 N MCV) MEAN CELL HGB (test code = MCH) 28.7 pg 27-31 N MEAN CELL HGB CONCENTRATION 31.0 G/DL 33-36.5 L (test code = MCHC) RED CELL DISTRIBUTION WIDTH 16.8 % 12.9-16.9 N (test code = RDW) PLATELET COUNT (test code = 152 x10 3/uL 150-440 N PLT) MEAN PLATELET VOLUME (test code 11.1 fL 8.9-12.4 N = MPV) NEUTROPHIL % (test code = NT%) 66.5 % 42.2-75.2 N LYMPHOCYTE % (test code = LY%) 18.3 % 20.5-51.1 L MONOCYTE % (test code = MO%) 7.2 % 1.7-9.3 N EOSINOPHIL % (test code = EO%) 6.0 % 0.0-7.0 N BASOPHIL % (test code = BA%) 0.5 % 0-2.5 N NEUTROPHIL # (test code = NT#) 5.17 x10 3/uL 1.80-7.70 N LYMPHOCYTE # (test code = LY#) 1.42 x10 3/uL 1.00-4.80 N MONOCYTE # (test code = MO#) 0.56 x10 3/uL 0.00-0.80 N EOSINOPHIL # (test code = EO#) 0.47 x10 3/uL 0.00-0.45 H BASOPHIL # (test code = BA#) 0.04 x10 3/uL 0.0-0.20 N - DUP VEIN [facility] [id number] 01:42:00 [facility] : 1990 Sex: FPatient Name: CHRISTINA KEBEDE Unit No: [id number] EXAMS: CPT CODE: [id number] [place] [address]Gkyu: Leftupper extremity venous Doppler. Location: H 12 History: left upper arm swelling Technique:Grayscale, color flow and spectral analysis of the internal jugular, subclavian, axillary, brachial,basilic, cephalic and forearm veins of the left upper extremitywas performed. Findings: There is normal flow, phasicity, compressibility and augmentation of the deep venous system of the left upper extremity. No DVT is found in the leftarm. IMPRESSION: Unremarkable exam. at 0142 Reported and signed by: JAQUELINE BOYD M.D. CC: Frank Banerjee MD; Anastasia Ocampo DO Technologist: Marlene Dias Probe: Trscr Dt/Tm: 02/11/2021 (014) by:Vince Printed Date/Time: 02/11/2021 (014) [facility] COFrank Claros MD [address] : 1990 Age: 30 Sex: [place] [address] Loc: P.0616 1 Exam Date: 02/11/2021 Status: ADM IN PH: FAX: PAGE 1 Signed [id number] 23:32:00 Test Item Value Reference Range Interpretation Comments CALCIUM (test code = 6.8 mg/dL 8.7-10.4 L Please note: New CA) Reference Range Dec 2020 [id number] 20:39:00 Test Item Value Reference Range Interpretation Comments TROPONIN-I (test 36.6 pg/mL 27.36-66.23 N Please note : Units and code = TROPI) Reference Rang e have changedFeb 3, 2 021 Coronavirus 2019 nCoV [id number] 20:36:00 Test Item Value Reference Range Interpretation Comments Coronavirus 2019 Negative Negative Negative re sults should be nCoV Bedside (test treated a s presumptive code = and, ifinconsis tent with [id number]) clinical signs and symptoms or nec essaryfor patient managem ent, should be tested with differentauthor ized or cleared molecul ar tests. Negative result s donot preclude SARS-C OV-2 infection and s hould not be used asthe s ole basis for patient man agement decisions. Nega tiveresults should be consi dered in the context of the patient'srecent exposures, history, presen ce of clinical signs andsymptoms consistent with COVID-19. BASIC METABOLIC [id number] 20:33:00 Test Item Value Reference Range Interpretation Comments SODIUM (test code = 137 mmol/L 136-145 N Please n ote: New NA) Reference Range Dec 2020 POTASSIUM (test code 4.6 mmol/L 3.5-5.1 N = K) CHLORIDE (test code 98 mmol/L 98-107 N Please n ote: New = CL) Reference Range Dec 2020 CARBON DIOXIDE (test 18 mmol/L 20-31 L Please note: New code = CO2) Reference Range Dec 2020 GLUCOSE (test code = 108 mg/dL 74-106 H Please note: New GLU) Reference Range Dec 2020 BLOOD UREA NITROGEN 98 mg/dL 9-23 H Please n ote: New (test code = BUN) Reference Range Dec 2020 GLOMERULAR 3 >60 L The estimated FILTRATION RATE glomerular f iltration (test code = GFR) rate is co mputed usingpatient ra ce, age (>18), sex, and serum creatinine. If anyof the needed data elements are mi ssing the Laboratory cannot compute an jeffrey mation of the glomerul ar filtration rate . CREATININE (test 19.50 mg/dL 0.55-1.02 Critical Va lue code = CREAT) reported toFir st Name:SALUD quiñones Name:AMENA ORONA READ BACK AND VERIFIEDby ROBERTA ACUNA, on 02/10/21, @ 2029.Please not e: New Reference Range Dec 2020 CALCIUM (test code = 6.1 mg/dL 8.7-10.4 L Please note: New CA) Reference Range Dec 2020 LIVER FUNCTION [id number] 20:33:00 Test Item Value Reference Range Interpretation Comments TOTAL PROTEIN (test 6.2 g/dL 5.7-8.2 N Please n ote: New code = PROT) Reference Range Dec 2020 ALBUMIN (test code = 2.8 g/dL 3.2-4.8 L Please note: New ALB) Reference Range Dec 2020 BILIRUBIN TOTAL (test < 0.2 mg/dL 0.3-1.2 L Please note: New code = BILT) Reference Range Dec 2020 BILIRUBIN DIRECT (test < 0.1 mg/dL <0.3 N Pleas e note: New code = BILD) Reference Range Dec 2020 SGOT/AST (test code = 76 U/L <34 H Please note: New AST) Reference Range Dec 2020 SGPT/ALT (test code = 22 U/L 10-49 N Please note: New ALT) Reference Range Dec 2020 ALKALINE PHOSPHATASE 177 U/L 46-116 H Please note: New (test code = ALKP) Reference Range Dec 2020 [id number] 20:33:00 Test Item Value Reference Range Interpretation Comments PHOSPHOROUS (test code 9.0 mg/dL 2.4-5.1 H Pleas e note: New = PHOS) Reference Range Dec 2020 [id number] 20:33:00 Test Item Value Reference Range Interpretation Comments MAGNESIUM (test code = 1.6 mg/dL 1.6-2.6 N Pleas e note: New MAG) Reference Range Dec 2020 LACTIC [id number] 20:28:00 Test Item Value Reference Range Interpretation Comments LACTIC ACID (test code = LACT) 0.50 mmol/L 0.5-2.0 N CBC W/AUTO [id number] 20:25:00 Test Item Value Reference Range Interpretation Comments WHITE BLOOD CELL (test code = 7.3 x10 3/uL 4.8-10.8 N WBC) RED BLOOD CELL (test code = 3.63 x10 6/uL 4.20-5.40 L RBC) HEMOGLOBIN (test code = HGB) 10.7 g/dL 12.0-16.0 L HEMATOCRIT (test code = HCT) 33.4 % 37.0-47.0 L MEAN CELL VOLUME (test code = 92.0 fL 81.0-99.0 N MCV) MEAN CELL HGB (test code = MCH) 29.5 pg 27-31 N MEAN CELL HGB CONCENTRATION 32.0 G/DL 33-36.5 L (test code = MCHC) RED CELL DISTRIBUTION WIDTH 17.0 % 12.9-16.9 H (test code = RDW) PLATELET COUNT (test code = 193 x10 3/uL 150-440 N PLT) MEAN PLATELET VOLUME (test code 11.6 fL 8.9-12.4 N = MPV) NEUTROPHIL % (test code = NT%) 68.7 % 42.2-75.2 N LYMPHOCYTE % (test code = LY%) 15.4 % 20.5-51.1 L MONOCYTE % (test code = MO%) 7.3 % 1.7-9.3 N EOSINOPHIL % (test code = EO%) 6.5 % 0.0-7.0 N BASOPHIL % (test code = BA%) 0.7 % 0-2.5 N NEUTROPHIL # (test code = NT#) 5.00 x10 3/uL 1.80-7.70 N LYMPHOCYTE # (test code = LY#) 1.12 x10 3/uL 1.00-4.80 N MONOCYTE # (test code = MO#) 0.53 x10 3/uL 0.00-0.80 N EOSINOPHIL # (test code = EO#) 0.47 x10 3/uL 0.00-0.45 H BASOPHIL # (test code = BA#) 0.05 x10 3/uL 0.0-0.20 N - XR CHEST 1 [id number] 19:44:00 [facility] : 1990 Sex: FPatient Name: CHRISTINA KEBEDE Unit No: [id number] EXAMS: CPT CODE: [id number] XR CHEST 1 V 38297 LOCATION: Q15 HISTORY: 30-year-old female who presents with dyspnea. COMMENT: A frontal chest radiograph was obtained at the bedside at 7:16 p.m. The lungs are clear and well-aerated. The cardiac silhouette, darryl, and mediastinum are within normal limits. The skeleton is intact, and the surrounding soft tissues are unremarkable. IMPRESSION: Unremarkable portable examination of the chest. at 1944 Reported and signed by: VELASQUEZ JARQUIN M.D. CC: Frank Banerjee MD; Anastasia Ocampo DO Technologist: Camille Linda Time: DAP (Gy m2):Air Kerma (mGy): Trscr Dt/Tm: 02/10/2021 (1943) by:[email or web address] Printed Date/Time: 02/10/2021 (1946) Name: CHRISTINA KEBEDE [facility] Phys: Frank Hubbard MD [address] : 1990 Age: 30 Sex: [place] [address] Loc: P.ERS Exam Date: 02/10/2021 Status: REG ER PH: FAX: PAGE 1 Signed ReportMOLECULAR [id number] 19:19:00Nasophrngl Swb *NA*(02/09/21 2:19 PM)[facility] LUJKOQVHVS6678-35-56 19:19:00Negative *NA*(02/09/21 2:19 PM)[facility] UTJSGIGTHL9618-39-14 19:19:00 Negative *NA*(02/09/21 2:19 PM)[facility] JWCEZWTZTL4987-89-54 19:19:00Negative *NA*(02/09/21 2:19 PM)[facility] 2021-02-09 19:19:00Nasophrngl Swb *NA*(02/09/21 2:19 PM)[facility] KZVLQMGDTS6405-12-86 19:19:00Negative *NA*(02/09/21 2:19 PM)[facility] MOLECULAR AOAOKZFXBR9966-87-29 19:19:00Negative *NA*(02/09/21 2:19 PM)[facility] DDSLJKDTJE5008-38-22 19:19:00Negative *NA*(02/09/21 2:19 PM) [facility] NarnzlmRFQYYAOYHS2836-93-93 14:00:006.8[facility]annHEMATOLOGY 2021-02-09 14:00:003.19[facility] WlzqadxPXBHLYQLWM6820-71-28 14:00:009.4[facility] FwvehlyEMZXFRCWGZ3230-55-80 14:00:0029.4[facility] KxkmrboKTFRSIRKUE9591-13-13 14:00:0092.0[facility] ViqjpzrDWJCPOKPMB1888-30-98 14:00:00 Test Item Value Reference Range Interpretation Comments MCH (test code = MCH) 29.5 pg 27.0-31.0 [facility] YmyjodhGONNNIWIHR1998-15-85 14:00:0032.1[facility]annHEMATOLOGY 2021-02-09 14:00:0018.0[facility] ThzqaujKYMRRETPWX3026-84-58 14:00:24113Cdiikyof UhickflEHJRWQNPMK4771-85-06 14:00:008.5[facility] GkpelzmZKHYHWELAD1817-24-20 14:00:0062.9[facility] RleqlecRYPMKUULYB3646-43-59 14:00:0020.7[facility] JQRMNKQPBX2842-18-40 14:00:0010.7[facility] EqgwpuyZAHAKHLTUJ8217-26-33 14:00:00 4.9[facility] RfnoczqXYUULPZPVJ6220-52-98 14:00:000.8[facility]annHEMATOLOGY 2021-02-09 14:00:004.3[facility] ArdfgvfMYZXNZBJAA2375-41-13 14:00:001.4[facility] WwrfcocNSIDWJOAWU4736-22-32 14:00:000.7[facility] TarwycwCLOSRVPXQG5727-94-65 14:00:000.3[facility] JsbdoioMUMMUTDRPT3960-33-15 14:00:000.1[facility] WQCPVYPJYK7831-92-48 14:00:006.8[facility] AkqnsocDZYVEPQYTA3677-69-62 14:00:00 3.19[facility] GkdsablIYKODGUTFF2895-99-91 14:00:009.4[facility]annHEMATOLOGY 2021-02-09 14:00:0029.4[facility] OfssxytMOXUJAYYRQ6118-72-25 14:00:0092.0[facility] VfxmttdNTQFFHFIQI6699-77-63 14:00:00 Test Item Value Reference Range Interpretation Comments MCH (test code = MCH) 29.5 pg 27.0-31.0 [facility] CneolhiYVFOFTAAIS3880-32-22 14:00:0032.1[facility]annHEMATOLOGY 2021-02-09 14:00:0018.0[facility] NzekehuWEKKGYBXCC4974-50-06 14:00:32349Yymubenb NkhwsggJYWOIAITEH0832-94-79 14:00:008.5[facility] IicfrccIJWNHZOZLU0865-95-09 14:00:0062.9[facility] CvcfqnkGTTYYXUWNF5409-98-95 14:00:0020.7[facility] QNMAMJIKKX6669-03-35 14:00:0010.7[facility] SxqegtuKMOAQRBTAK3473-82-49 14:00:00 4.9[facility] BqdehrqHXDPTYAZSH7146-43-35 14:00:000.8[facility]annHEMATOLOGY 2021-02-09 14:00:004.3[facility] RzpwpwrKGPZXWTTVC0308-46-39 14:00:001.4[facility] SorthvkJSZVWWSXAW3740-25-97 14:00:000.7[facility] XrvagdxAFEYAOZUEQ5850-93-88 14:00:000.3[facility] NsifmodSWNYRUMPMM9408-58-35 14:00:000.1[facility]annCHEM QLEDV0788-88-05 08:12:0092[facility]annCHEM WSOLS1370-80-36 08:12:0096 [facility]annCHE[facility] OIUOW5923-74-75 08:12:0018.60[facility]annCHEM PANEL 2021-02-09 08:12:47616Kndioyxs HermannCHEM DKCOY3243-28-71 08:12:004.2[facility]annCHEM BXBTD9143-87-26 08:12:27500Zzusurcn HermannCHEM OGAQJ3927-58-00 08:12:0019[facility]annCHEM MWRGM3729-27-58 08:12:0019.2[facility]annCHEM DGECR3122-37-23 08:12:005.8[facility]annCHEM HDNRB3509-34-40 08:12:002 [facility]annCHE[facility] CQNFY9474-34-44 08:12:008.2[facility]annCHEM PANEL 2021-02-09 08:12:001.8[facility]annCHEM JPYOS2625-35-85 08:12:0092[facility]annCHEM MUPHM3245-19-96 08:12:0096[facility]annCHEM PIPZQ0688-58-38 08:12:0018.60[facility]annCHEM WYPZK5210-02-28 08:12:28845Tupfgvhp [place] CHEM EQXMU7974-79-35 08:12:004.2[facility]annCHEM ZBFHS4382-95-15 08:12:91359 [facility]annCHE[facility] WKBFO1009-50-47 08:12:0019[facility]annCHEM PANEL 2021-02-09 08:12:0019.2[facility]annCHE[facility] LZWDV3591-69-64 08:12:005.8[facility]annCHEM DPOMG1194-50-61 08:12:002[facility]annCHE[facility] YDGMT5991-66-46 08:12:008.2[facility]annCHEM COHUA3220-43-87 08:12:001.8[facility] CARDIAC ZXFLOVN4544-98-80 16:09:000.04[facility]annCARDIAC GECMMAQ7054-07-59 16:09:000.04[facility]annCARDIAC BRKTMNR2877-37-12 09:43:000.05[facility]annCARDIAC BGLWSJS0823-13-07 09:43:000.05[facility]annCARDIAC ENZYMES 2021-02-08 06:21:000.04[facility]annCHEM LIWRP5801-69-99 06:21:003.70[facility]annCHEM SCFUR0137-78-20 06:21:81031Lrtmybwn HermannCHEM RBBDI5526-28-23 06:21:62917Duserrwx HermannCHEM ZVOHS6811-52-92 06:21:0019.90[facility] CHEM EINTE6123-51-97 06:21:93885Cjmjwzgp HermannCHEM WUWUG0907-74-92 06:21:004.4 [facility]annCHEM IYNRQ1597-34-95 06:21:24042Rhlieiuj HermannCHEM PANEL 2021-02-08 06:21:0018[facility]annCHEM GKNCT5292-22-32 06:21:0019.4[facility]annCHEM HEOLQ5615-35-31 06:21:007.1[facility]annCHEM NZMAR5768-96-47 06:21:002[facility]annCHEM UJRSZ7241-89-70 06:21:001.9[facility] HermannCARDIAC YLYTRIL5582-77-39 06:21:000.04[facility]annCHEM LYOFK2252-44-40 06:21:003.70 [facility]annCHE[facility] ZUCPP9218-23-70 06:21:06123Gczaesqy HermannCHEM PANEL 2021-02-08 06:21:49924Zdlkadex HermannCHEM YJWXC9946-46-18 06:21:0019.90[facility]annCHEM HPJOF1339-91-01 06:21:78090Gzqerurq HermannCHEM EHSYE5020-92-11 06:21:004.4[facility]annCHEM ELLHI2697-26-54 06:21:73328Fhnxibzp HermannCHEM HPLZB0235-48-19 06:21:0018[facility]annCHEM CMZRE4817-21-60 06:21:0019.4 [facility]annCHEM DKCND1963-95-49 06:21:007.1[facility]annCHEM PANEL 2021-02-08 06:21:002[facility]annCHEM FQCZD1941-27-07 06:21:001.9[facility] LmipporFVJJDKFZVOZG2181-27-10 02:42:005.1[facility] ZonszkjHLNUJWACDJNK8182-14-95 02:42:005.1[facility]annBODY NXKDUH8048-05-74 02:09:00Yellow (02/07/21 9:09 PM)[facility]annB[facility] HSJQAK4383-04-17 02:09:00Slight Cloudy (02/07/21 9:09 PM) [facility]ann[facility] XICONK1461-50-66 02:09:00Colorless (02/07/21 9:09 PM) [facility] MTTJZF6332-08-87 02:09:0052[facility]annB[facility] FLUIDS 2021-02-08 02:09:0036[facility]annB[facility] VWFSXC1475-96-01 02:09:0010[facility]annB[facility] DNUWAZ0886-10-37 02:09:002[facility]annB[facility] WYWDZJ7711-77-88 02:09:00[place] (02/07/21 9:09 PM)[facility] JEWPVN3781-43-48 02:09:00 931[facility]annB[facility] PRJTRI1634-12-10 02:09:329097Tchwrjbj HermannCHEM PANEL 2021-02-08 02:09:000.6[facility]annB[facility] MGAETZ2125-59-58 02:09:00Yellow (02/07/21 9:09 PM)[facility] DHIMHS1230-77-30 02:09:00Slight Cloudy (02/07/21 9:09 PM)[facility]ann[facility] XIRWDT3603-68-45 02:09:00Colorless (02/07/21 9:09 PM)[facility]ann[facility] QEKCWC9106-69-66 02:09:0052[facility]annB[facility] APVQRG3058-48-21 02:09:0036[facility]annB[facility] AGDJQF1829-31-93 02:09:0010[facility] ETFLTK4301-66-44 02:09:002[facility] BGRYDZ5586-36-05 02:09:00[place] (02/07/21 9:09 PM)[facility]annB[facility] FLUIDS 2021-02-08 02:09:35209Jejaanir HermannBODY HQHGMJ0685-99-94 02:09:520481Buvaahjz HermannCHEM KWYRD1948-22-64 02:09:000.6[facility]annCHEM VSQQM3860-36-46 23:43:0086[facility]annCHEM WFWIL8393-51-41 23:43:69879Ofsdycql HermannCHEM XVWOK0836-50-36 23:43:0020.10[facility]annCHEM ODFDZ3521-52-01 23:43:93293 [facility]annCHEM VXQMF9221-36-28 23:43:46363Xtmbhbpd HermannCHEM PANEL 2021-02-07 23:43:0018[facility]annCHEM CJHXJ9258-57-52 23:43:0021.4[facility]annCHEM TNGCB9109-79-21 23:43:005.8[facility]annCHEM AHWSW4679-95-04 23:43:00 Test Item Value Reference Range Interpretation Comments B/C Ratio (test code = B/C Ratio) 6 1 6-25 [facility]annCHEM UAYOX0258-88-31 23:43:007.2[facility]annCHEM PANEL 2021-02-07 23:43:002.1[facility]annCHEM EDQOY1313-93-64 23:43:005.1[facility]annCHEM VQLYW1234-85-27 23:43:00 Test Item Value Reference Range Interpretation Comments A/G Ratio (test code = A/G Ratio) 0.4 1 0.7-1.6 [facility]annCHE[facility] GLXQG1579-78-97 23:43:0020[facility]annCHEM PANEL 2021-02-07 23:43:0066[facility]annCHEM KVKTP1381-28-93 23:43:39788Abvhhsss HermannCHEM OLVEP6800-36-25 23:43:000.6[facility]annCHEM CWMXN9503-12-33 23:43:002[facility] IztarbkXMDXULSHCW1598-78-32 23:43:007.6[facility] NKSWRSNZBI5119-75-80 23:43:003.56[facility] UlcqvotTXZZRTYNLZ9223-36-07 23:43:00 10.6[facility] MhhsoxoAVKMJKJPRH4118-82-90 23:43:0032.2[facility]annHEMATOLOGY 2021-02-07 23:43:0090.5[facility] WazkuwqXMWQLLEOQO1649-61-67 23:43:00 Test Item Value Reference Range Interpretation Comments MCH (test code = MCH) 29.8 pg 27.0-31.0 [facility] ZxcqcnxENEOVRQSPT9042-24-73 23:43:0032.9[facility]annHEMATOLOGY 2021-02-07 23:43:0018.1[facility] KryaayeVFZTYBSSBL9899-91-47 23:43:39564Khwmkpii UebumwjXPDUTRUEWS5912-99-66 23:43:008.9[facility] MbvqwcwQDIRTAPCEF2993-62-01 23:43:0071.7[facility] AoxryikQNCGIBKOZO7839-49-43 23:43:0013.5[facility] LFOFXEJGXS3029-36-50 23:43:008.8[facility] CgmbpirTSVCLPDTAK4838-15-78 23:43:005.3 [facility] RtssyxiADABTXDGLG2830-80-54 23:43:000.7[facility]annHEMATOLOGY 2021-02-07 23:43:005.4[facility] TrehzxfHDGANJVJEX2375-70-69 23:43:001.0[facility] NabsgcfFIVVEZFSIP9183-90-14 23:43:000.7[facility] OkylgrvGLZAEADDVH0314-68-47 23:43:000.4[facility] XgwofukHFMGUSQACC5425-31-67 23:43:000.1[facility] WINKGNCICW1133-77-61 23:43:00Not Detected (02/07/21 6:43 PM)[facility]annCHE[facility] QLJTC4023-33-86 23:43:0086[facility]annCHEM VEWRB7054-79-54 23:43:53862 [facility]annCHEM DBKBJ1302-33-75 23:43:0020.10[facility]annCHEM PANEL 2021-02-07 23:43:29082Wbyxowie HermannCHEM NLRZA9962-04-30 23:43:18603Nosjmqcd [facility]annCHEM KSMWG3572-23-01 23:43:0018[facility]annCHEM YBGZV8701-81-57 23:43:0021.4[facility]annCHEM YSNUU5702-54-14 23:43:005.8[facility]annCHEM DEQDO4509-81-25 23:43:00 Test Item Value Reference Range Interpretation Comments B/C Ratio (test code = B/C Ratio) 6 1 6-25 [facility]annCHE[facility] PEKHF7322-01-94 23:43:007.2[facility]annCHEM PANEL 2021-02-07 23:43:002.1[facility]annCHEM KRHAH2735-27-14 23:43:005.1[facility]annCHEM LQDDG1486-40-55 23:43:00 Test Item Value Reference Range Interpretation Comments A/G Ratio (test code = A/G Ratio) 0.4 1 0.7-1.6 [facility]annCHE[facility] BNMQX8001-55-81 23:43:0020[facility]annCHEM PANEL 2021-02-07 23:43:0066[facility]annCHEM XJKXB0634-52-77 23:43:95721Bzrillqq [facility]annCHEM RTHXU3805-98-73 23:43:000.[facility] HermannCHEM DNISC6016-12-55 23:43:002[facility] FmopvqkCMHXTNVBTW9012-14-22 23:43:007.6[facility] XXTLTDBISD9232-38-47 23:43:003.56[facility] MqcswvsBXVBTXZIIV7364-29-69 23:43:00 10.6[facility] QwdkylnSAFXHAPKMZ1617-57-16 23:43:0032.2[facility]annHEMATOLOGY 2021-02-07 23:43:0090.5[facility] CvibfzyEWAVXEERFM2555-69-28 23:43:00 Test Item Value Reference Range Interpretation Comments MCH (test code = MCH) 29.8 pg 27.0-31.0 [facility] KxnpvktEPVKGAPAKH2244-18-13 23:43:0032.9[facility]annHEMATOLOGY 2021-02-07 23:43:0018.1[facility] SvjelrdODMCXWGGTJ6665-79-05 23:43:92284Onpzqbpj BtdatnuLDRVGSMQJD5776-74-58 23:43:008.9[facility] RtlcrdsTKYHPAGCOR2153-63-21 23:43:0071.7[facility] HgzfnhqWBCIGJMCPA3217-54-22 23:43:0013.5[facility] RZWOMFPMBZ1880-82-22 23:43:008.8[facility] IgdauhrLXBWYHNCSW7603-74-44 23:43:005.3 [facility] XbsantvWTVUQSKKYR5277-90-35 23:43:000.7[facility]annHEMATOLOGY 2021-02-07 23:43:005.4[facility] AcwmnzgSUEVHADEFC8442-14-49 23:43:001.0[facility] ZcbmqnkWQPUTHSKWO2828-90-29 23:43:000.7[facility] MawqfwmRNZQQLLLSE5650-08-11 23:43:000.4[facility] IjuewzzDLBINPBAYK8108-48-05 23:43:000.1[facility] RXCMPDTHSO3372-29-09 23:43:00Not Detected (02/07/21 6:43 PM)[facility] Leuko-Red KFC7584-32-45 23:54:00 Test Item Value Reference Range Interpretation Comments CROSSMATCH (test code = 2264) COMPATIBLE Unit ABO (test code = A Pos 3410953) UNIT NUMBER (test code = [id number] 934-0) Status (test code = 6750005) [place]_TIMEINCHART Blood Bank Product (test code RED BLOOD CELLS = 2263) PRODUCT CODE (test code = X7641L09 933-2) [facility] SCR0068-66-12 23:54:00 Test Item Value Reference Range Interpretation Comments CROSSMATCH (test code = 2264) COMPATIBLE Unit ABO (test code = A Pos 3458397) UNIT NUMBER (test code = [id number] 934-0) Status (test code = 9433201) [place]_TIMEINCHART Blood Bank Product (test code RED BLOOD CELLS = 2263) PRODUCT CODE (test code = E2555A14 933-2) [facility] HNM0354-74-36 23:54:00 Test Item Value Reference Range Interpretation Comments CROSSMATCH (test code = 2264) COMPATIBLE Unit ABO (test code = A Pos 4747052) UNIT NUMBER (test code = [id number] 934-0) Status (test code = 5842750) [facility] Blood Bank Product (test code RED BLOOD CELLS = 2263) PRODUCT CODE (test code = W2152R21 933-2) [facility]uk[facility]Red MTJ3138-70-22 23:54:00 Test Item Value Reference Range Interpretation Comments CROSSMATCH (test code = 2264) COMPATIBLE Unit ABO (test code = A Pos 9111282) UNIT NUMBER (test code = [id number] 934-0) Status (test code = 3401186) [place]_TIMEINCHART Blood Bank Product (test code RED BLOOD CELLS = 2263) PRODUCT CODE (test code = F9267K71 933-2) [facility] HospitalType and screen, oxmacwecc5355-09-61 12:32:00 Test Item Value Reference Range Interpretation Comments ABO/RH AUTOMATED (BEAKER) (test A POSITIVE code = 2260) Ab Scrn (test code = 890-4) NEGATIVE [facility] HospitalType [facility] screen, iuzacawic2627-23-72 12:32:00 Test Item Value Reference Range Interpretation Comments ABO/RH AUTOMATED (BEAKER) (test A POSITIVE code = 2260) Ab Scrn (test code = 890-4) NEGATIVE [facility] Hospital[facility], cojqzduzw0819-32-93 12:32:00 Test Item Value Reference Range Interpretation Comments ABO/RH AUTOMATED (BEAKER) (test A POSITIVE code = 2260) Ab Scrn (test code = 890-4) NEGATIVE [facility] HospitalType [facility] screen, sctusqgpr4789-57-33 12:32:00 Test Item Value Reference Range Interpretation Comments ABO/RH AUTOMATED (BEAKER) (test A POSITIVE code = 2260) Ab Scrn (test code = 890-4) NEGATIVE [facility] HospitalAB SPECIFICITY CLASS [id number] 14:10:00 Test Item Value Reference Range Interpretation Comments AB Specificity Class I B:7 44 45 48 50 60 (test code = 3457) 61 73 76 81 82 27:08Bw:6Cw:1 2 5 6 7 8 9 10 12 15 17 18 AB Specificity Titr Class MFIs > 4000 Report (test code = 3251) [facility]AB [facility] [id number] 14:10:00 Test Item Value Reference Range Interpretation Comments AB Specificity Class II NO CLASS II ANTIBODY (test code = 3458) DETECTED WITH MFIs > 4000 [facility]AB [facility] [id number] 14:10:00 Test Item Value Reference Range Interpretation Comments AB Specificity Class I B:7 44 45 48 50 60 (test code = 3457) 61 73 76 81 82 27:08Bw:6Cw:1 2 5 6 7 8 9 10 12 15 17 18 AB Specificity Titr Class MFIs > 4000 Report (test code = 3251) [facility] SPE[facility] CLASS [id number] 14:10:00 Test Item Value Reference Range Interpretation Comments AB Specificity Class II NO CLASS II ANTIBODY (test code = 3458) DETECTED WITH MFIs > 4000 [facility] [id number] 14:10:00 Test Item Value Reference Range Interpretation Comments AB Specificity Class I B:7 44 45 48 50 60 (test code = 3457) 61 73 76 81 82 27:08Bw:6Cw:1 2 5 6 7 8 9 10 12 15 17 18 AB Specificity Titr Class MFIs > 4000 Report (test code = 3251) [facility] [id number] 14:10:00 Test Item Value Reference Range Interpretation Comments AB Specificity Class II NO CLASS II ANTIBODY (test code = 3458) DETECTED WITH MFIs > 4000 [facility] [id number] 14:10:00 Test Item Value Reference Range Interpretation Comments AB Specificity Class I B:7 44 45 48 50 60 (test code = 3457) 61 73 76 81 82 27:08Bw:6Cw:1 2 5 6 7 8 9 10 12 15 17 18 AB Specificity Titr Class MFIs > 4000 Report (test code = 3251) [facility] [id number] 14:10:00 Test Item Value Reference Range Interpretation Comments AB Specificity Class II NO CLASS II ANTIBODY (test code = 3458) DETECTED WITH MFIs > 4000 [facility] HospitalHLA TYPING [id number] 01:15:00 Test Item Value Reference Range Interpretation Comments HLA-DR AG1 (test code = 3465) 13 HLA-DR AG2 (test code = 3472) 8 HLA-DR AG3-1 (test code = 3238) 52 HLA-DQA1 AG 1-1 (test code = 3463) 1 HLA-DQA1 AG 1-2 (test code = 3464) 4 HLA-DQB1 AG 1-1 (test code = 3244) 5 HLA-DQB1 AG 1-2 (test code = 3245) 7 HLA-DPA1 AG 1-1 (test code = 3246) 2 HLA-DPA1 AG 1-2 (test code = 3247) 2 HLA-DPB1 AG 1-1 (test code = 3248) 01:01 HLA-DPB1 AG 1-2 (test code = 3249) 17:01 [facility] HospitalH[facility] [id number] 01:15:00 Test Item Value Reference Range Interpretation Comments HLA-DR AG1 (test code = 3465) 13 HLA-DR AG2 (test code = 3472) 8 HLA-DR AG3-1 (test code = 3238) 52 HLA-DQA1 AG 1-1 (test code = 3463) 1 HLA-DQA1 AG 1-2 (test code = 3464) 4 HLA-DQB1 AG 1-1 (test code = 3244) 5 HLA-DQB1 AG 1-2 (test code = 3245) 7 HLA-DPA1 AG 1-1 (test code = 3246) 2 HLA-DPA1 AG 1-2 (test code = 3247) 2 HLA-DPB1 AG 1-1 (test code = 3248) 01:01 HLA-DPB1 AG 1-2 (test code = 3249) 17:01 [id number]:15[facility]00 Test Item Value Reference Range Interpretation Comments HLA-DR AG1 (test code = 3465) 13 HLA-DR AG2 (test code = 3472) 8 HLA-DR AG3-1 (test code = 3238) 52 HLA-DQA1 AG 1-1 (test code = 3463) 1 HLA-DQA1 AG 1-2 (test code = 3464) 4 HLA-DQB1 AG 1-1 (test code = 3244) 5 HLA-DQB1 AG 1-2 (test code = 3245) 7 HLA-DPA1 AG 1-1 (test code = 3246) 2 HLA-DPA1 AG 1-2 (test code = 3247) 2 HLA-DPB1 AG 1-1 (test code = 3248) 01:01 HLA-DPB1 AG 1-2 (test code = 3249) 17[place] [place] [id number] 01:15:00 Test Item Value Reference Range Interpretation Comments HLA-DR AG1 (test code = 3465) 13 HLA-DR AG2 (test code = 3472) 8 HLA-DR AG3-1 (test code = 3238) 52 HLA-DQA1 AG 1-1 (test code = 3463) 1 HLA-DQA1 AG 1-2 (test code = 3464) 4 HLA-DQB1 AG 1-1 (test code = 3244) 5 HLA-DQB1 AG 1-2 (test code = 3245) 7 HLA-DPA1 AG 1-1 (test code = 3246) 2 HLA-DPA1 AG 1-2 (test code = 3247) 2 HLA-DPB1 AG 1-1 (test code = 3248) 01:01 HLA-DPB1 AG 1-2 (test code = 3249) 17[place]01 [facility] [place] [id number] 01:14:00 Test Item Value Reference Range Interpretation Comments HLA-A AG1 (test code = 3466) 74 HLA-A AG2 (test code = 3467) 33 HLA-B AG1 (test code = 3468) 53 HLA-B AG2 (test code = 3469) 53 HLA-C AG1 (test code = 3470) 4 HLA-C AG2 (test code = 3471) 4 HLA-B BW1 (test code = 3234) 4 HLA-B BW2 (test code = 3235) 4 [facility] [place] [id number] 01:14:00 Test Item Value Reference Range Interpretation Comments HLA-A AG1 (test code = 3466) 74 HLA-A AG2 (test code = 3467) 33 HLA-B AG1 (test code = 3468) 53 HLA-B AG2 (test code = 3469) 53 HLA-C AG1 (test code = 3470) 4 HLA-C AG2 (test code = 3471) 4 HLA-B BW1 (test code = 3234) 4 HLA-B BW2 (test code = 3235) 4 [facility] [place] [id number] 01:14:00 Test Item Value Reference Range Interpretation Comments HLA-A AG1 (test code = 3466) 74 HLA-A AG2 (test code = 3467) 33 HLA-B AG1 (test code = 3468) 53 HLA-B AG2 (test code = 3469) 53 HLA-C AG1 (test code = 3470) 4 HLA-C AG2 (test code = 3471) 4 HLA-B BW1 (test code = 3234) 4 HLA-B BW2 (test code = 3235) 4 [facility] [place] [id number] 01:14:00 Test Item Value Reference Range Interpretation Comments HLA-A AG1 (test code = 3466) 74 HLA-A AG2 (test code = 3467) 33 HLA-B AG1 (test code = 3468) 53 HLA-B AG2 (test code = 3469) 53 HLA-C AG1 (test code = 3470) 4 HLA-C AG2 (test code = 3471) 4 HLA-B BW1 (test code = 3234) 4 HLA-B BW2 (test code = 3235) 4 [facility] [id number] 17:22:31040Pinnmkfs HermannCHEM ZHFSY1764-91-04 17:22:0074[facility]CHE[facility] YSZXG2261-91-01 17:22:0012.50 [facility]CHE[facility] GSGJP1334-89-14 17:22:59296Tidygang HermannCHEM PANEL 2021-01-18 17:22:005.1[facility]annCHE[facility] YTKDQ7141-26-23 17:22:00815Aoiuwuiy HermannCHEM AYTOW6267-41-19 17:22:0026[facility]annCHE[facility] CNTSV3810-19-58 17:22:0015.1[facility]annCHE[facility] TQPUO0398-60-31 17:22:007.0[facility]annCHE[facility] YAQSW1811-09-73 17:22:004[facility] DhxrrfcXWWTXBULYX4147-57-44 17:22:006.2 [facility] RkgknlkLGRSGGGZQZ7549-36-55 17:22:002.78[facility]annHEMATOLOGY 2021-01-18 17:22:007.5[facility] DvlaokuKCBXOZJNAR0744-92-95 17:22:0023.7[facility] LvnrzzuOTOLIAEFTJ2332-73-52 17:22:0085.1[facility] ZtvispwHYBQIJTXPR3687-07-77 17:22:00 Test Item Value Reference Range Interpretation Comments MCH (test code = MCH) 26.9 pg 27.0-31.0 [facility] QqxgxviYYPEUJMSCT2829-11-30 17:22:0031.6[facility]annHEMATOLOGY 2021-01-18 17:22:0015.4[facility] NagwecxHHHODJUTSJ7025-29-07 17:22:23131Grkzowzc CvfeijfAQZCPELOBI0973-24-01 17:22:007.8[facility] EqrdyetVYTMPSAKWJ2160-44-04 17:22:0067.8[facility] SkbkibrQSRTHUDPSJ9639-76-09 17:22:0020.3[facility] ZJMVAPIIUG7463-51-73 17:22:007.9[facility] LcbzqxyJTDXGLCCHV4058-10-10 17:22:003.3 [facility] NshpjyjGWULTQEWJD6471-22-65 17:22:000.7[facility] HermannHEMATOLOGY 2021-01-18 17:22:004.2[facility] SipnoufHQJEPNNIFH7721-79-36 17:22:001.3[facility] ErpyolqNFXFJRTYYI6091-83-96 17:22:000.5[facility] XegbzheQPRWIYNTJG5563-44-55 17:22:000.2[facility] HermannCHEM VFGJL0976-30-13 17:22:16438Xykivhqt HermannCHEM FAUWK7881-62-03 17:22:0074[facility]annCHEM SMPFV8403-86-30 17:22:0012.50 [facility]annCHEM ETAOL2212-96-50 17:22:54712Yeibkdwk HermannCHEM PANEL 2021-01-18 17:22:005.1[facility] HermannCHEM JXOLD3816-12-84 17:22:31785Zpwtqvzx HermannCHEM FXKRP1999-59-10 17:22:0026[facility]annCHEM NDZEA5015-58-37 17:22:0015.1[facility]annCHEM TIGQU0009-37-85 17:22:007.0[facility]annCHEM ZRIYU3094-64-63 17:22:004[facility] DgdksmrERMEWUBQYE4107-18-49 17:22:006.2 [facility] UdvdnasLBIVPVVENR5720-47-19 17:22:002.78[facility] HermannHEMATOLOGY 2021-01-18 17:22:007.5[facility] HxabeclAIKJHVBAJG4618-81-97 17:22:0023.7[facility] GsyvhvuLYDHNGIKCN2343-08-42 17:22:0085.1[facility] NwglkytLJICLXZEAK1505-75-97 17:22:00 Test Item Value Reference Range Interpretation Comments MCH (test code = MCH) 26.9 pg 27.0-31.0 [facility] BkmeygcYCKALSIVAV8209-85-53 17:22:0031.6[facility] HermannHEMATOLOGY 2021-01-18 17:22:0015.4[facility] OdzpzqdBYDJVSWIFY9177-35-77 17:22:47995Whaeijdw DdrctaeUZDWRPGAPO7312-27-51 17:22:007.8[facility] QllvqyaZDYYHGTXFD5046-63-99 17:22:0067.8[facility] MjeqjugMBAONNMXVW1617-28-72 17:22:0020.3[facility] PVJSIWUHDG0631-32-57 17:22:007.9[facility] YlmqhmbAWCXUYBOFL8798-61-22 17:22:003.3 [facility] ZbbynfoUVUZHSGTKX8112-05-50 17:22:000.7[facility] HermannHEMATOLOGY 2021-01-18 17:22:004.2[facility] OedbvtyOVKLFWNZNT5685-88-38 17:22:001.3[facility] YjkutovCILJZQWVLM0946-85-17 17:22:000.5[facility] KrakpyxBHLGMOEGDB3240-02-19 17:22:000.2[facility] HermannFLOW PRA CLASS I WITH REFLEX TO ANTIBODY SPECIFICITY 2021-01-18 07:24:00 Test Item Value Reference Range Interpretation Comments Flow Class I Percent Positive (test 90 code = 3229) [facility] PRA CLASS II WITH REFLEX TO ANTIBODY SPECIFICITY 2021-01-18 07:24:00 Test Item Value Reference Range Interpretation Comments Flow Class II Percent Positive (test 13 code = 3231) [facility] PRA CLASS I WITH REFLEX TO ANTIBODY SPECIFICITY 2021-01-18 07:24:00 Test Item Value Reference Range Interpretation Comments Flow Class I Percent Positive (test 90 code = 3229) [facility] PRA CLASS II WITH REFLEX TO ANTIBODY SPECIFICITY 2021-01-18 07:24:00 Test Item Value Reference Range Interpretation Comments Flow Class II Percent Positive (test 13 code = 3231) [facility] PRA CLASS I WITH REFLEX TO ANTIBODY SPECIFICITY 2021-01-18 07:24:00 Test Item Value Reference Range Interpretation Comments Flow Class I Percent Positive (test 90 code = 3229) [facility] PRA CLASS II WITH REFLEX TO ANTIBODY SPECIFICITY 2021-01-18 07:24:00 Test Item Value Reference Range Interpretation Comments Flow Class II Percent Positive (test 13 code = 3231) [facility] PRA CLASS I WITH REFLEX TO ANTIBODY SPECIFICITY 2021-01-18 07:24:00 Test Item Value Reference Range Interpretation Comments Flow Class I Percent Positive (test 90 code = 3229) [facility]ODY SPECIFICITY 2021-01-18 07:24:00 Test Item Value Reference Range Interpretation Comments Flow Class II Percent Positive (test 13 code = 3231) [facility] Spot [id number] 08:42:00 Test Item Value Reference Range Interpretation Comments T-Spot TB (test code = 84222-9) Negative Neg Ctrl Spot Count (test code = 0 89863-8) Panel A Spot (test code = 19199-1) 0 Panel B Spot (test code = 45124-3) [address] (test code = 0 36010-3) Scan Result (test code = 7600982) [facility] Spot [id number] 08:42:00 Test Item Value Reference Range Interpretation Comments T-Spot TB (test code = 63970-7) Negative Neg Ctrl Spot Count (test code = 0 55250-8) Panel A Spot (test code = 23118-9) 0 Panel B Spot (test code = 80816-4) [address] (test code = 0 05298-0) Scan Result (test code = 1103394) [facility] Spot [id number] 08:42:00 Test Item Value Reference Range Interpretation Comments T-Spot TB (test code = 08386-3) Negative Neg Ctrl Spot Count (test code = 0 27626-7) Panel A Spot (test code = 40661-8) 0 Panel B Spot (test code = 39425-3) [address] (test code = 0 96545-6) Scan Result (test code = 2950843) [facility] Spot [id number] 08:42:00 Test Item Value Reference Range Interpretation Comments T-Spot TB (test code = 61462-9) Negative Neg Ctrl Spot Count (test code = 0 59131-3) Panel A Spot (test code = 20452-2) 0 Panel B Spot (test code = 31170-8) [address] (test code = 0 85588-5) Scan Result (test code = 0210545) [facility] SPOT [id number] 08:42:00 Test Item Value Reference Range Interpretation Comments T-SPOT TB (BEAKER) (test code = Negative 1683) NEG CONTROL SPOT COUNT (BEAKER) 0 (test code = 1684) PANEL A SPOT (BEAKER) (test code = 0 1685) PANEL B SPOT (BEAKER) (test code = 0 1686) POS CONTROL SPOT CT (BEAKER) (test 0 code = 1687) SCAN RESULT (test code = 8504904) Anti-DNA [id number] 09:48:00 Test Item Value Reference Range Interpretation Comments Anti-DNA Titer (test code = 1553) 1:40 [facility] [id number] 09:48:00 Test Item Value Reference Range Interpretation Comments Anti-DNA Titer (test code = 1553) 1:40 [facility] [id number] 09:48:00 Test Item Value Reference Range Interpretation Comments Anti-DNA Titer (test code = 1553) 1:40 [facility] [id number] 09:48:00 Test Item Value Reference Range Interpretation Comments Anti-DNA Titer (test code = 1553) 1:40 [facility] HospitalANT[facility] [id number] 09:48:00 Test Item Value Reference Range Interpretation Comments ANTI-DNA TITER (BEAKER) (test code = :40 1553) Double-Stranded DNA (dsDNA) [id number] 09:47:00 Test Item Value Reference Range Interpretation Comments ds DNA Ab (test code = 1055) Positive Negative [facility] Hospital[facility]-Stranded DNA (dsDNA) [id number] 09:47:00 Test Item Value Reference Range Interpretation Comments ds DNA Ab (test code = 1055) Positive Negative [facility] HospitalDouble-Stranded DNA (dsDNA) [id number] 09:47:00 Test Item Value Reference Range Interpretation Comments ds DNA Ab (test code = 1055) Positive Negative [facility] HospitalDouble-Stranded DNA (dsDNA) Iunjfecf2948-07-13 09:47:00 Test Item Value Reference Range Interpretation Comments ds DNA Ab (test code = 1055) Positive Negative [facility] HospitalDOUBLE-STRANDED DNA (DSDNA) [id number] 09:47:00 Test Item Value Reference Range Interpretation Comments ANTI-DNA DS (BEAKER) (test code = Positive Negative 1055) Factor 5 Leiden PCR (thrombotic risk)2021-01-14 15:00:00 Test Item Value Reference Interpretation Comments Range Factor V Leiden SEE BELOW RESULT: FACT OR V Mutation (test code LEIDEN ( R506Q) VARIANT = [id number]) NOT DETECTED Interpretation SEE BELOW INTERPRETATIO N: This (test code = individual is n egative 4182845) (normal) for th e Factor V Leiden (R506Q) variant in the Factor V gene. Increas ed risk of thrombophili a can becaused by a v ariety of genetic and non-genetic fac tors not screened fo r bythis assay. Laboratory test ing supervised and results monitored by Nereida Guillaume MD, PhD, FAC, [facility]. MUTATION ANALYSIS:The Fa ctor V Leiden (R506Q) mutation [NM 00 0130.2: c.1601G>A (p.R534Q)] inth e Factor V gene i s one of the most com mon causes of inheritedthromb ophilia . This mutation causes resistance to degradation of activatedFactor V protein by acti vated protein C (APC) . The Factor V Leiden (R506Q)mutation is detected by amplification o f the selected region of Factor V geneby polymerase saman n reaction (PCR) and fluorescent pro be hybridization t o thetargeted reg ion, followed by hanna ting curve analysis with a real time PCRsy stem. Although rare, false positive or fal se negative result s may occur.All resul ts should be inter preted in context of c linical findings, relevanthistory , and other laborator y data. This test was developed and i ts analytical perf ormance characteristics havebeen determ ined by [facility] .It has not been cleare d or approved by FDA . This assay has been validatedpursua nt to the CLIA regula tions and is used for clinical purpos es. Health care pro viders, please contact your local [facility] geneticcounsel[facility] or call [phone] INFO ([phone]) for assistance withinterpretat ion of these results. THIERNO (test code = Performing Lab THIERNO) [facility] [address] [facility] [place] [address] Anderson Bucio MD, PhD, ELIGIO [facility] HospitalFactor 5 Leiden PCR (thrombotic risk)2021-01-14 15:00:00 Test Item Value Reference Interpretation Comments Range Factor V Leiden SEE BELOW RESULT: FACT OR V Mutation (test code LEIDEN ( R506Q) VARIANT = [id number]) NOT DETECTED Interpretation SEE BELOW INTERPRETATIO N: This (test code = individual is n egative 7405074) (normal) for th e Factor V Leiden (R506Q) variant in the Factor V gene. Increas ed risk of thrombophili a can becaused by a v ariety of genetic and non-genetic fac tors not screened fo r bythis assay. Laboratory test ing supervised and results monitored by Nereida Guillaume MD, PhD, FAC, [facility]. MUTATION ANALYSIS:The Fa ctor V Leiden (R506Q) mutation [NM 00 0130.2: c.1601G>A (p.R534Q)] inth e Factor V gene i s one of the most com mon causes of inheritedthromb ophilia . This mutation causes resistance to degradation of activatedFactor V protein by acti vated protein C (APC) . The Factor V Leiden (R506Q)mutation is detected by amplification o f the selected region of Factor V geneby polymerase saman n reaction (PCR) and fluorescent pro be hybridization t o thetargeted reg ion, followed by hanna ting curve analysis with a real time PCRsy stem. Although rare, false positive or fal se negative result s may occur.All resul ts should be inter preted in context of c linical findings, relevanthistory , and other laborator y data. This test was developed and i ts analytical perf ormance characteristics havebeen determ ined by [facility] .It has not been cleare d or approved by FDA . This assay has been validatedpursua nt to the CLIA regula tions and is used for clinical purpos es. Health care pro viders, please contact your local [facility] geneticcounsel[facility] r or call [phone] [employer] ([phone]) for assistance withinterpretat ion of these results. THIERNO (test code = Performing Lab THIERNO) [facility] [address] [place] [address] Anderson Bucio MD, PhD, ELIGIO [facility] HospitalFactor 5 Leiden PCR (thrombotic risk)2021-01-14 15:00:00 Test Item Value Reference Interpretation Comments Range Factor V Leiden SEE BELOW RESULT: FACT OR V Mutation (test code LEIDEN ( R506Q) VARIANT = [id number]) NOT DETECTED Interpretation SEE BELOW INTERPRETATIO N: This (test code = individual is n egative 1329713) (normal) for th e Factor V Leiden (R506Q) variant in the Factor V gene. Increas ed risk of thrombophili a can becaused by a v ariety of genetic and non-genetic fac tors not screened fo r bythis assay. Laboratory test ing supervised and results monitored by Nereida Guillaume MD, PhD, FACMG, [facility]. MUTATION ANALYSIS:The Fa ctor V Leiden (R506Q) mutation [NM 00 0130.2: c.1601G>A (p.R534Q)] inth e Factor V gene i s one of the most com mon causes of inheritedthromb ophilia . This mutation causes resistance to degradation of activatedFactor V protein by acti vated protein C (APC) . The Factor V Leiden (R506Q)mutation is detected by amplification o f the selected region of Factor V geneby polymerase saman n reaction (PCR) and fluorescent pro be hybridization t o thetargeted reg ion, followed by hanna ting curve analysis with a real time PCRsy stem. Although rare, false positive or fal se negative result s may occur.All resul ts should be inter preted in context of c linical findings, relevanthistory , and other laborator y data. This test was developed and i ts analytical perf ormance characteristics havebeen determ ined by [facility] [place] .It has not been cleare d or approved by FDA . This assay has been validatedpursua nt to the CLIA regula tions and is used for clinical purpos es. Health care pro viders, please contact your local [facility]counsel[facility] r or call [phone] [employer] ([phone]) for assistance withinterpretat ion of these results. THIERNO (test code = Performing Lab THIERNO) [facility] [address] [place] [address] Anderson Bucio MD, PhD, ELIGIO [facility] HospitalFactor 5 Leiden PCR (thrombotic risk)2021-01-14 15:00:00 Test Item Value Reference Interpretation Comments Range Factor V Leiden SEE BELOW RESULT: FACT OR V Mutation (test code LEIDEN ( R506Q) VARIANT = [id number]) NOT DETECTED Interpretation SEE BELOW INTERPRETATIO N: This (test code = individual is n egative 3916647) (normal) for th e Factor V Leiden (R506Q) variant in the Factor V gene. Increas ed risk of thrombophili a can becaused by a v ariety of genetic and non-genetic fac tors not screened fo r bythis assay. Laboratory test ing supervised and results monitored by Nereida Guillaume MD, PhD, FACMG, [facility]. MUTATION ANALYSIS:The Fa ctor V Leiden (R506Q) mutation [NM 00 0130.2: c.1601G>A (p.R534Q)] inth e Factor V gene i s one of the most com mon causes of inheritedthromb ophilia . This mutation causes resistance to degradation of activatedFactor V protein by acti vated protein C (APC) . The Factor V Leiden (R506Q)mutation is detected by amplification o f the selected region of Factor V geneby polymerase saman n reaction (PCR) and fluorescent pro be hybridization t o thetargeted reg ion, followed by hanna ting curve analysis with a real time PCRsy stem. Although rare, false positive or fal se negative result s may occur.All resul ts should be inter preted in context of c linical findings, relevanthistory , and other laborator y data. This test was developed and i ts analytical perf ormance characteristics havebeen determ ined by [facility] .It has not been cleare d or approved by FDA . This assay has been validatedpursua nt to the CLIA regula tions and is used for clinical purpos es. Health care pro viders, please contact your local [facility]counsel[facility] r or call [phone] INFO ([phone]) for assistance withinterpretat ion of these results. THIERNO (test code = Performing Lab THIERNO) [facility] [address] [place] [address] Anderson Bucio MD, PhD, ELIGIO [facility] [id number] 14:31:00 Test Item Value Reference Interpretation Comments Range PROTHROMBIN GENE SEE BELOW RESULT: G20 210A ANALYSIS (test code variant not detected = 20141219) Interpretation SEE BELOW INTERPRETATIO N: This (test code = individual is n egative 3652784) (normal) for th e [id number] variant in the Prothrombin/Fac tor II gene. Increased risk of thrombophili a can becaused by a v ariety of genetic and non-genetic fac tors not screened fo r bythis assay. Laboratory test ing supervised and results monitored by Zena Ford, Ph.D.,D ABMGG, [facility]. The G202 10A mutation [AF478 696.1: g.87798Y>A (c.* 97G>A)] in theProthrombin/ Factor II gene is the second most common inh erited risk factorfor thrombosis occu rring in approximatel y 2% of Caucasians. Pre sence of themutation is associated with an elevation of prothrombin lev els to about 30%above normal in heterozygote s and to 70% above no rmal in homozygotes. Prothrombin (G2 0210A) mutations are d etected by amplificatio n of theirselected g riki regions by poly merase chain reaction (PCR) and fluorescent probe hybridization t o the targeted region , followed by hanna bennett curveanalysis w ith a real time PCR s ystem. Although rare, false positive or falsenegative r esults may occur. All results should be inter preted in context ofcl inical findings, relev ant history, and ot her laboratory data . Health care pro viders, please contact your local [facility]counsel[facility] r or call [phone] ([phone]) for assistance withinterpretat ion of these results. This test was develo ped and its analytical performance characteristics havebeen determ ined by [facility] .It has not been cleare d or approved by FDA . This assay has been validatedpursua nt to the CLIA regula tions and is used for clinical purpos es. THIERNO (test code = Performing Lab THIERNO) [facility] [address] [place] [address] Anderson Bucio MD, PhD, ELIGIO [facility] HospitalProth[facility] Gene [id number] 14:31:00 Test Item Value Reference Interpretation Comments Range PROTHROMBIN GENE SEE BELOW RESULT: G20 210A ANALYSIS (test code variant not detected = 20141219) Interpretation SEE BELOW INTERPRETATIO N: This (test code = individual is n egative 3367745) (normal) for th e [id number] variant in the Prothrombin/Fac tor II gene. Increased risk of thrombophili a can becaused by a v ariety of genetic and non-genetic fac tors not screened fo r bythis assay. Laboratory test ing supervised and results monitored by Zena Ford, Ph.D.,D ABMGG, [facility]. The G202 10A mutation [AF478 696.1: g.36993T>A (c.* 97G>A)] in theProthrombin/ Factor II gene is the second most common inh erited risk factorfor thrombosis occu rring in approximatel y 2% of Caucasians. Pre sence of themutation is associated with an elevation of prothrombin lev els to about 30%above normal in heterozygote s and to 70% above no rmal in homozygotes. Prothrombin (G2 0210A) mutations are d etected by amplificatio n of theirselected g riki regions by poly merase chain reaction (PCR) and fluorescent probe hybridization t o the targeted region , followed by hanna bennett curveanalysis w ith a real time PCR s ystem. Although rare, false positive or falsenegative r esults may occur. All results should be inter preted in context ofcl inical findings, relev ant history, and ot her laboratory data . Health care pro viders, please contact your local [facility]counsel[facility] r or call [phone] [employer] ([phone]) for assistance withinterpretat ion of these results. This test was develo ped and its analytical performance characteristics havebeen determ ined by [facility] .It has not been cleare d or approved by FDA . This assay has been validatedpursua nt to the CLIA regula tions and is used for clinical purpos es. THIERNO (test code = Performing Lab THIERNO) EZ [facility] [address] [place] [address] Anderson Bucio MD, PhD, ELIGIO [facility] HospitalProthrombin Gene [id number] 14:31:00 Test Item Value Reference Interpretation Comments Range PROTHROMBIN GENE SEE BELOW RESULT: G20 210A ANALYSIS (test code variant not detected = 20141219) Interpretation SEE BELOW INTERPRETATIO N: This (test code = individual is n egative 4489088) (normal) for th e F93640T variant in the Prothrombin/Fac tor II gene. Increased risk of thrombophili a can becaused by a v ariety of genetic and non-genetic fac tors not screened fo r bythis assay. Laboratory test ing supervised and results monitored by Zena Ford, Ph.D.,D ABG, [facility]. The G202 10A mutation [AF478 696.1: g.71463N>A (c.* 97G>A)] in theProthrombin/ Factor II gene is the second most common inh erited risk factorfor thrombosis occu rring in approximatel y 2% of Caucasians. Pre sence of themutation is associated with an elevation of prothrombin lev els to about 30%above normal in heterozygote s and to 70% above no rmal in homozygotes. Prothrombin (G2 0210A) mutations are d etected by amplificatio n of theirselected g riki regions by poly merase chain reaction (PCR) and fluorescent probe hybridization t o the targeted region , followed by hanna sabrina curveanalysis w ith a real time PCR s ystem. Although rare, false positive or falsenegative r esults may occur. All results should be inter preted in context ofcl inical findings, relev ant history, and ot her laboratory data . Health care pro viders, please contact your local [facility]counsel[facility] r or call [phone] INFO ([phone]) for assistance withinterpretat ion of these results. This test was hever mcgee and its analytical performance characteristics havebeen determ ined by [facility] .It has not been cleare d or approved by FDA . This assay has been validatedpursua nt to the CLIA regula tions and is used for clinical purpos es. THIERNO (test code = Performing Lab THIERNO) [facility] [address] [place] [address] Anderson Bucio MD, PhD, ELIGIO [facility]Pro[facility] Gene [id number] 14:31:00 Test Item Value Reference Interpretation Comments Range PROTHROMBIN GENE SEE BELOW RESULT: G20 210A ANALYSIS (test code variant not detected = 20141219) Interpretation SEE BELOW INTERPRETATIO N: This (test code = individual is n egative 7949472) (normal) for th e [id number] variant in the Prothrombin/Fac tor II gene. Increased risk of thrombophili a can becaused by a v ariety of genetic and non-genetic fac tors not screened fo r bythis assay. Laboratory test ing supervised and results monitored by Zena Ford, Ph.D.,D ABG, [facility]. The G202 10A mutation [AF478 696.1: g.66950F>A (c.* 97G>A)] in theProthrombin/ Factor II gene is the second most common inh erited risk factorfor thrombosis occu rring in approximatel y 2% of Caucasians. Pre sence of themutation is associated with an elevation of prothrombin lev els to about 30%above normal in heterozygote s and to 70% above no rmal in homozygotes. Prothrombin (G2 0210A) mutations are d etected by amplificatio n of theirselected g riki regions by poly merase chain reaction (PCR) and fluorescent probe hybridization t o the targeted region , followed by hanna bennett curveanalysis w ith a real time PCR s ystem. Although rare, false positive or falsenegative r esults may occur. All results should be inter preted in context ofcl inical findings, relev ant history, and ot her laboratory data . Health care pro viders, please contact your local [facility]counsel[facility] or call [phone] INFO ([phone]) for assistance withinterpretat ion of these results. This test was alejandrao ped and its analytical performance characteristics havebeen determ ined by [facility] .It has not been cleare d or approved by FDA . This assay has been validatedpursua nt to the CLIA regula tions and is used for clinical purpos es. THIERNO (test code = Performing Lab THIERNO) [facility] [address] [place] [address] Anderson Bucio MD, PhD, ELIGIO [facility] HospitalProtein S [id number] 02:06:00 Test Item Value Reference Interpretation Comments Range Protein S Functional 52 See_Comment L Decrea sed levels (test code = of Protein S 8051984) activity may be found in patien ts withhereditary deficiency, warfarin therap y, vitamin k deficiency, dylan er disease,DIC, or recent thrombos is as well as afte r surgery. In addition, it ma y bephysiologic i n . An elevated Protei n S activity is not clinicallysigni fica nt. Only deficiencies ar e associated with an increased thromboticrisk. [Automated mess age] The system [employer] generated this result transmit rosalba reference range : 60 - 140 % normal. The reference range was not used to interpret this result as normal/abnormal . THIERNO (test code = Performing Lab EZ THIERNO) [facility] [address] [place] [address] Anderson Bucio MD, PhD, ELIGIO Lab Interpretation Abnormal (test code = 98290-2) [facility] HospitalProtein S [id number] 02:06:00 Test Item Value Reference Interpretation Comments Range Protein S Functional 52 See_Comment L Decrea sed levels (test code = of Protein S 2405959) activity may be found in patien ts withhereditary deficiency, warfarin therap y, vitamin k deficiency, dylan er disease,DIC, or recent thrombos is as well as afte r surgery. In addition, it ma y bephysiologic i n . An elevated Protei n S activity is not clinicallysigni fica nt. Only deficiencies ar e associated with an increased thromboticrisk. [Automated mess age] The system [employer] generated this result transmit rosalba reference range : 60 - 140 % normal. The reference range was not used to interpret this result as normal/abnormal . THIERNO (test code = Performing Lab EZ THIERNO) [facility] [address] [place] [address] Anderson Bucio MD, PhD, ELIGIO Lab Interpretation Abnormal (test code = 06994-1) [facility] HospitalProtein S [id number] 02:06:00 Test Item Value Reference Interpretation Comments Range Protein S Functional 52 See_Comment L Decrea sed levels (test code = of Protein S 3076534) activity may be found in patien ts withhereditary deficiency, warfarin therap y, vitamin k deficiency, dylan er disease,DIC, or recent thrombos is as well as afte r surgery. In addition, it ma y bephysiologic i n . An elevated Protei n S activity is not clinicallysigni fica nt. Only deficiencies ar e associated with an increased thromboticrisk. [Automated mess age] The system [employer] generated this result transmit rosalba reference range : 60 - 140 % normal. The reference range was not used to interpret this result as normal/abnormal . THIERNO (test code = Performing Lab EZ THIERNO) [facility] [address] [place] [address] Anderson Bucio MD, PhD, ELIGIO Lab Interpretation Abnormal (test code = 74535-1) [facility] HospitalProtein S [id number] 02:06:00 Test Item Value Reference Interpretation Comments Range Protein S Functional 52 See_Comment L Decrea sed levels (test code = of Protein S ) activity may be found in patien ts withhereditary deficiency, warfarin therap y, vitamin k deficiency, dylan er disease,DIC, or recent thrombos is as well as afte r surgery. In addition, it ma y bephysiologic i n . An elevated Protei n S activity is not clinicallysigni fica nt. Only deficiencies ar e associated with an increased thromboticrisk. [Automated mess age] The system [employer] generated this result transmit rosalba reference range : 60 - 140 % normal. The reference range was not used to interpret this result as normal/abnormal . THIERNO (test code = Performing Lab EZ THIERNO) [facility] [address] [place] [address] Anderson Bucio MD, PhD, ELIGIO Lab Interpretation Abnormal (test code = 79781-2) [facility] HospitalURINE [id number] 11:55:00 Test Item Value Reference Range Interpretation Comments CULTURE (BEAKER) (test A >100, 000 col/mL code = 1095) Pam albican s CULTURE (BEAKER) (test ESCHERICHIA COLI A 3 0-39,000 col/mL code = 1095) Escherichia col i Amikacin (test code = S 1) Ampicillin + Sulbactam R (test code = 6) Aztreonam (test code = S 32) Cefepime (test code = S 51) Cefoxitin (test code = S 68) Ceftazidime (test code S = 27) Ceftriaxone (test code S = 52) Ertapenem (test code = S 38) Gentamicin (test code R = 18) Levofloxacin (test S code = 22) Meropenem (test code = S 34) Nitrofurantoin (test S code = 23) Tetracycline (test R code = 2) Tobramycin (test code R = 25) Trimethoprim + R Sulfamethoxazole (test code = 47) Cardiolipin Antibodies, IgG and [id number] 14:15:00 Test Item Value Reference Interpretation Comments Range Anticardiolipin IgG <1.6 See_Comment [[employer] (test code = 3181-5) message ] The system which generated this result transmitted reference range : <20.0 GPL. The reference range was not used to interpret this result as normal/abnormal . Anticardiolipin IgM 0.2 See_Comment [[employer] (test code = 3182-3) message ] The system which generated this result transmitted reference range : <20.0 MPL. The reference range was not used to interpret this result as normal/abnormal . THIERNO (test code = Anticardiolipin IgG THIERNO) Result Interpretation: <20.0 GPL Normal>/= 20.0 GPL Positive Anticardiolipin IgM Result Interpretation: <20.0 MPL Normal>/= 20.0 MPL Positive Lab Interpretation Normal (test code = 68408-0) [facility] HospitalCardiolipin Antibodies, IgG and [id number] 14:15:00 Test Item Value Reference Interpretation Comments Range Anticardiolipin IgG <1.6 See_Comment [[employer] (test code = 3181-5) message ] The system which generated this result transmitted reference range : <20.0 GPL. The reference range was not used to interpret this result as normal/abnormal . Anticardiolipin IgM 0.2 See_Comment [[employer] (test code = 3182-3) message ] The system which generated this result transmitted reference range : <20.0 MPL. The reference range was not used to interpret this result as normal/abnormal . THIERNO (test code = Anticardiolipin IgG THIERNO) Result Interpretation: <20.0 GPL Normal>/= 20.0 GPL Positive Anticardiolipin IgM Result Interpretation: <20.0 MPL Normal>/= 20.0 MPL Positive Lab Interpretation Normal (test code = 66518-3) [facility] HospitalCardiolipin Antibodies, IgG and [id number] 14:15:00 Test Item Value Reference Interpretation Comments Range Anticardiolipin IgG <1.6 See_Comment [[employer] (test code = 3181-5) message ] The system which generated this result transmitted reference range : <20.0 GPL. The reference range was not used to interpret this result as normal/abnormal . Anticardiolipin IgM 0.2 See_Comment [[employer] (test code = 3182-3) message ] The system which generated this result transmitted reference range : <20.0 MPL. The reference range was not used to interpret this result as normal/abnormal . THIERNO (test code = Anticardiolipin IgG THIERNO) Result Interpretation: <20.0 GPL Normal>/= 20.0 GPL Positive Anticardiolipin IgM Result Interpretation: <20.0 MPL Normal>/= 20.0 MPL Positive Lab Interpretation Normal (test code = 77593-7) [facility] HospitalCardiolipin Antibodies, IgG and [id number] 14:15:00 Test Item Value Reference Interpretation Comments Range Anticardiolipin IgG <1.6 See_Comment [[employer] (test code = 3181-5) message ] The system which generated this result transmitted reference range : <20.0 GPL. The reference range was not used to interpret this result as normal/abnormal . Anticardiolipin IgM 0.2 See_Comment [[employer] (test code = 3182-3) message ] The system which generated this result transmitted reference range : <20.0 MPL. The reference range was not used to interpret this result as normal/abnormal . THIERNO (test code = Anticardiolipin IgG THIERNO) Result Interpretation: <20.0 GPL Normal>/= 20.0 GPL Positive Anticardiolipin IgM Result Interpretation: <20.0 MPL Normal>/= 20.0 MPL Positive Lab Interpretation Normal (test code = 66957-5) [facility] HospitalCARDIOLIPIN ANTIBODIES, IGG AND [id number] 14:15:00 Test Item Value Reference Range Interpretation Comments ANTICARDIOLIPIN IGG ANTIBODY (BEAKER) < GPL <20.0 (test code = 712) ANTICARDIOLIPIN IGM ANTIBODY (BEAKER) 0.2 MPL <20.0 (test code = 713) Anticardiolipin IgG Result Interpretation: <20.0 GPL Normal>/= 20.0 GPL PositiveAnticardiolipin IgM Result Interpretation: <20.0 MPL Normal>/= 20.0 MPL PositiveVaricella Zoster Antibody, [id number] 13:06:00 Test Item Value Reference Range Interpretation Comments Varicella IgG (test 6.3 code = 56189-9) THIERNO (test code = THIERNO) VARICELLA ZOSTER RESULT INTERPRETATIONS: <=0.8 Al Nonreactive: Presumed non-immune to VZV 0.9-1.0 Al Equivocal >=1.1 Al Reactive: Presumed immune to VZV [facility] HospitalCytomegalovirus antibody, [id number] 13:06:00 Test Item Value Reference Range Interpretation Comments CYTOMEGALOVIRUS, IGG Positive Negative, A (test code = 3429) Equivocal THIERNO (test code = THIERNO) CMV IgG Result Interpretation: </= 0.8 Al Negative 0.9-1.0 Al Equivocal >/=1.1 Al Positive Lab Interpretation (test Abnormal code = 05651-7) [facility] HospitalEBV-VCA antibody, [id number] 13:06:00 Test Item Value Reference Range Interpretation Comments AG CHE VIRAL Positive Negative, A CAPSID ANTIGEN IGG (test Equivocal code = 3415) THIERNO (test code = THIERNO) Ag Che Viral Capsid Antigen IgG Result Interpretation: </= 0.8 Al Negative 0.9-1.0 Al Equivocal >/= 1.1 Al Positive Lab Interpretation (test Abnormal code = 30353-6) [facility] HospitalEBV-VCA antibody, [id number] 13:06:00 Test Item Value Reference Range Interpretation Comments AG CHE VIRAL Negative Negative, CAPSID ANTIGEN IGM (test Equivocal code = 3418) THIERNO (test code = THIERNO) Ag Che Viral Capsid Antigen IgM Result Interpretation: </= 0.8 Al Negative 0.9-1.0 Al Equivocal >/= 1.1 Al Positive Lab Interpretation (test Normal code = 14129-0) [facility] HospitalCytomegalovirus antibody, [id number] 13:06:00 Test Item Value Reference Range Interpretation Comments CMV IGM (test code = Negative Negative, 3437) Equivocal THIERNO (test code = THIERNO) CMV IgM Result Interpretation: </= 0.8 Al Negative 0.9-1.0 Al Equivocal >/= 1.1 Al Positive Lab Interpretation (test Normal code = 01936-4) [facility] HospitalVaricella Zoster Antibody, [id number] 13:06:00 Test Item Value Reference Range Interpretation Comments Varicella IgG (test 6.3 code = 71075-2) THIERNO (test code = THIERNO) VARICELLA ZOSTER RESULT INTERPRETATIONS: <=0.8 Al Nonreactive: Presumed non-immune to VZV 0.9-1.0 Al Equivocal >=1.1 Al Reactive: Presumed immune to VZV [facility] HospitalCytomegalovirus antibody, [id number] 13:06:00 Test Item Value Reference Range Interpretation Comments CYTOMEGALOVIRUS, IGG Positive Negative, A (test code = 3429) Equivocal THIERNO (test code = THIERNO) CMV IgG Result Interpretation: </= 0.8 Al Negative 0.9-1.0 Al Equivocal >/=1.1 Al Positive Lab Interpretation (test Abnormal code = 34647-9) [facility] HospitalEBV-VCA antibody, [id number] 13:06:00 Test Item Value Reference Range Interpretation Comments AG CHE VIRAL Positive Negative, A CAPSID ANTIGEN IGG (test Equivocal code = 3415) THIERNO (test code = THIERNO) Ag Che Viral Capsid Antigen IgG Result Interpretation: </= 0.8 Al Negative 0.9-1.0 Al Equivocal >/= 1.1 Al Positive Lab Interpretation (test Abnormal code = 17291-4) [facility] HospitalEBV-VCA antibody, [id number] 13:06:00 Test Item Value Reference Range Interpretation Comments AG CHE VIRAL Negative Negative, CAPSID ANTIGEN IGM (test Equivocal code = 3418) THIERNO (test code = THIERNO) Ag Che Viral Capsid Antigen IgM Result Interpretation: </= 0.8 Al Negative 0.9-1.0 Al Equivocal >/= 1.1 Al Positive Lab Interpretation (test Normal code = 05582-6) [facility] HospitalCytomegalovirus antibody, [id number] 13:06:00 Test Item Value Reference Range Interpretation Comments CMV IGM (test code = Negative Negative, 3437) Equivocal THIERNO (test code = THIERNO) CMV IgM Result Interpretation: </= 0.8 Al Negative 0.9-1.0 Al Equivocal >/= 1.1 Al Positive Lab Interpretation (test Normal code = 34422-1) [facility] HospitalVaricella Zoster Antibody, [id number] 13:06:00 Test Item Value Reference Range Interpretation Comments Varicella IgG (test 6.3 code = 25876-8) THIERNO (test code = THIERNO) VARICELLA ZOSTER RESULT INTERPRETATIONS: <=0.8 Al Nonreactive: Presumed non-immune to VZV 0.9-1.0 Al Equivocal >=1.1 Al Reactive: Presumed immune to VZV [facility] HospitalCytomegalovirus antibody, [id number] 13:06:00 Test Item Value Reference Range Interpretation Comments CYTOMEGALOVIRUS, IGG Positive Negative, A (test code = 3429) Equivocal THIERNO (test code = THIERNO) CMV IgG Result Interpretation: </= 0.8 Al Negative 0.9-1.0 Al Equivocal >/=1.1 Al Positive Lab Interpretation (test Abnormal code = 64004-9) [facility] HospitalEBV-VCA antibody, [id number] 13:06:00 Test Item Value Reference Range Interpretation Comments AG CHE VIRAL Positive Negative, A CAPSID ANTIGEN IGG (test Equivocal code = 3415) THIERNO (test code = THIERNO) Ag Che Viral Capsid Antigen IgG Result Interpretation: </= 0.8 Al Negative 0.9-1.0 Al Equivocal >/= 1.1 Al Positive Lab Interpretation (test Abnormal code = 59487-9) [facility] HospitalEBV-VCA antibody, [id number] 13:06:00 Test Item Value Reference Range Interpretation Comments AG CHE VIRAL Negative Negative, CAPSID ANTIGEN IGM (test Equivocal code = 3418) THIERNO (test code = THIERNO) Ag Che Viral Capsid Antigen IgM Result Interpretation: </= 0.8 Al Negative 0.9-1.0 Al Equivocal >/= 1.1 Al Positive Lab Interpretation (test Normal code = 53622-4) [facility] HospitalCytomegalovirus antibody, [id number] 13:06:00 Test Item Value Reference Range Interpretation Comments CMV IGM (test code = Negative Negative, 3437) Equivocal THIERNO (test code = THIERNO) CMV IgM Result Interpretation: </= 0.8 Al Negative 0.9-1.0 Al Equivocal >/= 1.1 Al Positive Lab Interpretation (test Normal code = 55352-7) [facility] HospitalVaricella Zoster Antibody, [id number] 13:06:00 Test Item Value Reference Range Interpretation Comments Varicella IgG (test 6.3 code = 48315-4) THIERNO (test code = THIERNO) VARICELLA ZOSTER RESULT INTERPRETATIONS: <=0.8 Al Nonreactive: Presumed non-immune to VZV 0.9-1.0 Al Equivocal >=1.1 Al Reactive: Presumed immune to VZV [facility] HospitalCytomegalovirus antibody, [id number] 13:06:00 Test Item Value Reference Range Interpretation Comments CYTOMEGALOVIRUS, IGG Positive Negative, A (test code = 3429) Equivocal THIERNO (test code = THIERNO) CMV IgG Result Interpretation: </= 0.8 Al Negative 0.9-1.0 Al Equivocal >/=1.1 Al Positive Lab Interpretation (test Abnormal code = 03692-4) [facility] HospitalEBV-VCA antibody, [id number] 13:06:00 Test Item Value Reference Range Interpretation Comments AG CHE VIRAL Positive Negative, A CAPSID ANTIGEN IGG (test Equivocal code = 3415) THIERNO (test code = THIERNO) Ag Che Viral Capsid Antigen IgG Result Interpretation: </= 0.8 Al Negative 0.9-1.0 Al Equivocal >/= 1.1 Al Positive Lab Interpretation (test Abnormal code = 78509-9) [facility] HospitalEBV-VCA antibody, [id number] 13:06:00 Test Item Value Reference Range Interpretation Comments AG CHE VIRAL Negative Negative, CAPSID ANTIGEN IGM (test Equivocal code = 3418) THIERNO (test code = THIERNO) Ag Che Viral Capsid Antigen IgM Result Interpretation: </= 0.8 Al Negative 0.9-1.0 Al Equivocal >/= 1.1 Al Positive Lab Interpretation (test Normal code = 70833-6) [facility] HospitalCytomegalovirus antibody, [id number] 13:06:00 Test Item Value Reference Range Interpretation Comments CMV IGM (test code = Negative Negative, 3437) Equivocal THIERNO (test code = THIERNO) CMV IgM Result Interpretation: </= 0.8 Al Negative 0.9-1.0 Al Equivocal >/= 1.1 Al Positive Lab Interpretation (test Normal code = 51461-6) [facility] HospitalCYTOMEGALOVIRUS ANTIBODY, [id number] 13:06:00 Test Item Value Reference Range Interpretation Comments CYTOMEGALOVIRUS, IGG (BEAKER) Positive Negative, Equivocal A (test code = 3429) CMV IgG Result Interpretation: </= 0.8 Al Negative 0.9-1.0 Al Equivocal >/=1.1 Al PositiveCYTOMEGALOVIRUS ANTIBODY, [id number] 13:06:00 Test Item Value Reference Range Interpretation Comments CYTOMEGALOVIRUS IGM ANTIBODY Negative Negative, Equivocal (BEAKER) (test code = 3437) CMV IgM Result Interpretation: </= 0.8 Al Negative 0.9-1.0 Al Equivocal >/= 1.1 Al PositiveEBV ANTIBODY, [id number] 13:06:00 Test Item Value Reference Range Interpretation Comments AG CHE VIRAL CAPSID Positive Negative, Equivocal A ANTIGEN IGG (BEAKER) (test code = 3415) Ag Che Viral Capsid Antigen IgG Result Interpretation: </= 0.8 Al Negative 0.9-1.0 Al Equivocal >/= 1.1 Al PositiveEBV ANTIBODY, [id number] 13:06:00 Test Item Value Reference Range Interpretation Comments AG CHE VIRAL CAPSID Negative Negative, Equivocal ANTIGEN IGM (BEAKER) (test code = 3418) Ag Che Viral Capsid Antigen IgM Result Interpretation: </= 0.8 Al Negative 0.9-1.0 Al Equivocal >/= 1.1 Al PositiveVARICELLA ZOSTER ANTIBODY, [id number] 13:06:00 Test Item Value Reference Range Interpretation Comments VARICELLA ZOSTER IGG (AL) (BEAKER) 6.3 (test code = 3197) VARICELLA ZOSTER RESULT INTERPRETATIONS: <=0.8 Al Nonreactive: Presumed non- immune to VZV 0.9-1.0Al Equivocal >=1.1 Al Reactive: Presumed immune to VZV [id number] 11:29:00 Test Item Value Reference Range Interpretation Comments RPR (test code = 45964-8) Nonreactive Nonreactive Lab Interpretation (test code = Normal 86569-4) [facility] HospitalRPR20[facility] 11:29:00 Test Item Value Reference Range Interpretation Comments RPR (test code = 97233-4) Nonreactive Nonreactive Lab Interpretation (test code = Normal 00375-1) [facility] HospitalRPR[facility] 11:29:00 Test Item Value Reference Range Interpretation Comments RPR (test code = 13212-5) Nonreactive Nonreactive Lab Interpretation (test code = Normal 30519-5) [facility] HospitalRPR[facility] 11:29:00 Test Item Value Reference Range Interpretation Comments RPR (test code = 45243-0) Nonreactive Nonreactive Lab Interpretation (test code = Normal 75029-8) [facility] HospitalRPR[facility] 11:29:00 Test Item Value Reference Range Interpretation Comments RPR SCREEN (BEAKER) (test code = Nonreactive Nonreactive 420) Protein C [id number] 09:45:00 Test Item Value Reference Range Interpretation Comments Protein C Activity (test code = 102.0 % 70-130 37015-7) Lab Interpretation (test code = Normal 43367-6) [facility] HospitalProtein C [id number] 09:45:00 Test Item Value Reference Range Interpretation Comments Protein C Activity (test code = 102.0 % 70-130 32188-1) Lab Interpretation (test code = Normal 91675-0) [facility] HospitalProtein C [id number] 09:45:00 Test Item Value Reference Range Interpretation Comments Protein C Activity (test code = 102.0 % 70.0-130.0 49061-7) Lab Interpretation (test code = Normal 59861-2) [facility]Protein [facility] [id number] 09:45:00 Test Item Value Reference Range Interpretation Comments Protein C Activity (test code = 102.0 % 70.0-130.0 36225-4) Lab Interpretation (test code = Normal 64248-2) [facility] HospitalPROTEIN C [id number] 09:45:00 Test Item Value Reference Range Interpretation Comments PROTEIN C ACTIVITY (BEAKER) (test 102.0 % 70.0-130.0 code = 582) CARDIAC [id number] 06:50:000.02[facility] EISUCDZ1517-05-93 06:50:000.02[facility]CARD[facility]AC TIXSFBY9643-83-16 01:39:00<0.02[facility]annCHEM [id number] 01:39:0096[facility]annCHEM UDBXP7595-41-87 01:39:0082[facility]annCHEM FXRJE9476-59-79 01:39:0012.10[facility]annCHEM TOAXC2886-10-56 01:39:65962Axyouioj HermannCHEM PETDO7734-99-87 01:39:004.3 [facility]annCHE[facility] XEIRJ5528-64-34 01:39:21632Cacixuco HermannCHEM PANEL 2021-01-12 01:39:0029[facility]annCHEM VDSLO7864-19-71 01:39:0013.3[facility]annCHEM QDQSQ0360-77-05 01:39:006.8[facility]annCHEM [id number] 01:39:00 Test Item Value Reference Range Interpretation Comments B/C Ratio (test code = B/C Ratio) 7 1 6-25 [facility]annCHE[facility] ZBCQT5034-58-11 01:39:007.4[facility]annCHEM PANEL 2021-01-12 01:39:002.4[facility]annCHEM JVNBD2926-52-32 01:39:005.0[facility]annCHEM [id number] 01:39:00 Test Item Value Reference Range Interpretation Comments A/G Ratio (test code = A/G Ratio) 0.5 1 0.7-1.6 [facility]annCHE[facility] [id number] 01:39:0018[facility]annCHEM PANEL 2021-01-12 01:39:0035[facility]annCHEM [id number] 01:39:67373Ijcazmre HermannCHEM NEPLM0204-06-88 01:39:000.5[facility]annCHEM GPWPY2305-21-93 01:39:004[facility] QlsczknIKBUQTROED7810-88-12 01:39:005.0[facility] [place] NNXXYDQGAU2509-98-80 01:39:002.98[facility] NufxenyEAEXKLIFFM4687-74-58 01:39:00 8.4[facility] DifkmzvFIYRLYCLNZ5587-50-87 01:39:0024.9[facility]annHEMATOLOGY 2021-01-12 01:39:0083.6[facility] RtqwkdlYXFUVBVIDS7799-52-76 01:39:00 Test Item Value Reference Range Interpretation Comments MCH (test code = MCH) 28.1 pg 27.0-31.0 [facility] ZgqbrtlCDMBEZZFDA3595-71-28 01:39:0033.7[facility]annHEMATOLOGY 2021-01-12 01:39:0014.9[facility] KjozwrbQOBFETPJDB6710-84-78 01:39:81429Ysgnvurz OwxzkzsFLKAIIOPUL7740-10-29 01:39:007.7[facility] EtriyglSVXUAZMGIZ0010-09-22 01:39:00Normal (01/11/21 7:39 PM)[facility] UgcrgjhGTARNBTPRJ8010-56-24 01:39:00 Normal (01/11/21 7:39 PM)[facility] TkwdvvyHAAJUSWAZI0532-29-16 01:39:0058.6[facility] LmriipzGKZJBJKKUW3261-74-96 01:39:0024.8[facility] PzblfafFRXZYRFAXB5400-97-30 01:39:0011.5[facility] EfqxjijHMJZSCFHTZ9320-43-63 01:39:004.3[facility] [place] HPPWTMWMWC0219-57-71 01:39:000.8[facility] IyqqlpiBCSAZFPKJO4598-85-08 01:39:002.9 [facility] LiuipgmXHLAFMSIND0100-60-54 01:39:001.2[facility]annHEMATOLOGY 2021-01-12 01:39:000.6[facility] PtmegtsDOQPOXNHFV8497-34-63 01:39:000.2[facility] AeofkjaILHCHINAMA0190-05-46 01:39:0088[facility] PvrhqnqTLGCRQQBFI0950-87-58 01:39:00<2.9[facility]annCARDIAC SIGDOJU0696-62-81 01:39:00<0.02 [facility]annCHEM ILYGW1233-16-08 01:39:0096[facility]annCHEM PANEL 2021-01-12 01:39:0082[facility]annCHEM ZSPNA1376-47-97 01:39:0012.10[facility]annCHEM BIMKH5940-44-92 01:39:33290Jpxktebs HermannCHEM UOFLO4079-44-05 01:39:004.3[facility]annCHEM ZUJNA8745-63-80 01:39:14952Dmgzrpku HermannCHEM PJBNF9208-67-45 01:39:0029[facility]annCHEM SNMXC6041-82-22 01:39:0013.3 [facility]CHE[facility] NWGDQ2775-55-63 01:39:006.8[facility]annCHEM PANEL 2021-01-12 01:39:00 Test Item Value Reference Range Interpretation Comments B/C Ratio (test code = B/C Ratio) 7 1 6-25 [facility]annCHE[facility] VGEBS4999-13-13 01:39:007.4[facility]annCHEM PANEL 2021-01-12 01:39:002.4[facility]annCHEM SKDSB7508-62-17 01:39:005.0[facility]annCHEM MUBYI9531-49-45 01:39:00 Test Item Value Reference Range Interpretation Comments A/G Ratio (test code = A/G Ratio) 0.5 1 0.7-1.6 [facility]annCHE[facility] QHYYV3616-14-55 01:39:0018[facility]annCHEM PANEL 2021-01-12 01:39:0035[facility]annCHEM MSXAS3521-54-45 01:39:11142Qpafbkdl HermannCHEM IXTTF0811-47-71 01:39:000.5[facility]annCHEM XBBGY3927-48-26 01:39:004[facility] NaiylyiQOSKPSACKW2611-11-99 01:39:005.0[facility] [place] QCFNNTXEGD6992-99-79 01:39:002.98[facility] EyddmqvEEVZWFPTDU6255-57-29 01:39:00 8.4[facility] IjwsskhDZTPZUNSAL4513-76-69 01:39:0024.9[facility]annHEMATOLOGY 2021-01-12 01:39:0083.6[facility] AdyoqsjGWJBTRJBXM2166-23-52 01:39:00 Test Item Value Reference Range Interpretation Comments MCH (test code = MCH) 28.1 pg 27.0-31.0 [facility] HjbfejyGWMEESQMBW3694-70-30 01:39:0033.7[facility]annHEMATOLOGY 2021-01-12 01:39:0014.9[facility] SbjexfpGOCFDXGALL3804-60-09 01:39:31491Zxcknuht DowzodmTGDOTNFKMW6905-60-31 01:39:007.7[facility] VwicmzdNQKHAOMLLB3001-85-97 01:39:00Normal (01/11/21 7:39 PM)[facility] VmujuwwRCZRXVDYDU7371-30-66 01:39:00 Normal (01/11/21 7:39 PM)[facility] DxfsnuiNSMTVOEMIT6456-80-75 01:39:0058.6[facility] MerbgtiCHUJCKCWYN8764-41-87 01:39:0024.8[facility] CnuqecxJUOSJPPFWV3545-36-77 01:39:0011.5[facility] VzlyppwBWTLHSGLIJ1458-33-44 01:39:004.3[facility] [place] BCPMRVLGBU0732-85-00 01:39:000.8[facility] LuzswmvUXKJEIYMZL4661-72-68 01:39:002.9 [facility] XsfopbuPSEXMDFDJV8795-52-84 01:39:001.2[facility]annHEMATOLOGY 2021-01-12 01:39:000.6[facility] ShrkvciVMSEQGOBMB1710-07-32 01:39:000.2[facility] NkfnuyeOBZYXJELCL4472-46-77 01:39:0088[facility] JukfpknBESBHKAOKB9982-12-25 01:39:00<2.9[facility] HermannAntithrombin WXA5806-02-27 13:55:00 Test Item Value Reference Range Interpretation Comments Antithrombin III (test code = 111.0 % 80-120 49203-3) Lab Interpretation (test code = Normal 04641-0) [facility] HospitalAntithrombin [id number] 13:55:00 Test Item Value Reference Range Interpretation Comments Antithrombin III (test code = 111.0 % 80-120 86103-3) Lab Interpretation (test code = Normal 50482-7) [facility] HospitalAntithrombin [id number] 13:55:00 Test Item Value Reference Range Interpretation Comments Antithrombin III (test code = 111.0 % 80.0-120.0 18510-4) Lab Interpretation (test code = Normal 85305-5) [facility] HospitalAntithrombin [id number] 13:55:00 Test Item Value Reference Range Interpretation Comments Antithrombin III (test code = 111.0 % 80.0-120.0 63729-7) Lab Interpretation (test code = Normal 76246-5) [facility] HospitalANTITHROMBIN [id number] 13:55:00 Test Item Value Reference Range Interpretation Comments ANTITHROMBIN III ACTIVITY (BEAKER) 111.0 % 80.0-120.0 (test code = 711) Direct [facility] (REECE)/Direct [id number] 13:47:00 Test Item Value Reference Range Interpretation Comments Direct AHG-IGG (test code = 1006-6) NEGATIVE Direct A[facility]-C3B, C3D (test code = NEGATVIE 1003-3) [facility] HospitalDirect [facility] ([facility])/Direct [id number] 13:47:00 Test Item Value Reference Range Interpretation Comments Direct AHG-IGG (test code = 1006-6) NEGATIVE Direct A[facility]-C3B, C3D (test code = NEGATVIE 1003-3) [facility] HospitalDirect [facility] ([facility]Direct [id number] 13:47:00 Test Item Value Reference Range Interpretation Comments Direct AHG-IGG (test code = 1006-6) NEGATIVE Direct AHG-C3B, C3D (test code = NEGATVIE 1003-3) [facility] HospitalDirect [facility] ([facility])/Direct [id number] 13:47:00 Test Item Value Reference Range Interpretation Comments Direct AHG-IGG (test code = 1006-6) NEGATIVE Direct AHG-C3B, C3D (test code = NEGATVIE 1003-3) [facility] HospitalHemoglobin [id number] 13:36:00 Test Item Value Reference Range Interpretation Comments Hemoglobin A1C (test code = 4548-4) 5.8 % 4.3-6.1 Lab Interpretation (test code = Normal 71550-0) [facility] HospitalHepatitis B surface [id number] 13:36:00 Test Item Value Reference Range Interpretation Comments HBsAg Screen (test code Nonreactive Nonreactive = 5195-3) THIERNO (test code = THIERNO) Specimen is considered negative for HBsAg. Lab Interpretation (test Normal code = 86136-0) [facility] HospitalHepatitis C [id number] 13:36:00 Test Item Value Reference Range Interpretation Comments Hepatitis C Ab (test Nonreactive Nonreactive code = 00824-9) THIERNO (test code = THIERNO) Feed In Worker ID - AAHAMID Lab Interpretation (test Normal code = 17934-4) [facility] HospitalHIV-1 Antigen with HIV-1/2 [id number] 13:36:00 Test Item Value Reference Range Interpretation Comments HIV-1 Antigen with HIV Nonreactive Nonreactive 1&2 Antibody (test code = 89159-9) THIERNO (test code = THIERNO) Feed In Worker ID - AAHAMID Lab Interpretation (test Normal code = 41600-6) [facility] HospitalHemoglobin [id number] 13:36:00 Test Item Value Reference Range Interpretation Comments Hemoglobin A1C (test code = 4548-4) 5.8 % 4.3-6.1 Lab Interpretation (test code = Normal 73691-5) [facility] HospitalHepatitis B surface [id number] 13:36:00 Test Item Value Reference Range Interpretation Comments HBsAg Screen (test code Nonreactive Nonreactive = 5195-3) THIERNO (test code = THIERNO) Specimen is considered negative for HBsAg. Lab Interpretation (test Normal code = 30859-6) [facility] C [id number] 13:36:00 Test Item Value Reference Range Interpretation Comments Hepatitis C Ab (test Nonreactive Nonreactive code = 30201-3) THIERNO (test code = THIERNO) Feed In Worker ID - AAHAMID Lab Interpretation (test Normal code = 68985-8) [facility] HospitalHIV[facility]1 Antigen with HIV-1/2 [id number] 13:36:00 Test Item Value Reference Range Interpretation Comments HIV-1 Antigen with HIV Nonreactive Nonreactive 1&2 Antibody (test code = 69481-4) THIERNO (test code = THIERNO) Feed In Worker ID - AAHAMID Lab Interpretation (test Normal code = 24201-3) [facility] HospitalHemoglobin [id number] 13:36:00 Test Item Value Reference Range Interpretation Comments Hemoglobin A1C (test code = 4548-4) 5.8 % 4.3-6.1 Lab Interpretation (test code = Normal 06738-7) [facility] B surface [id number] 13:36:00 Test Item Value Reference Range Interpretation Comments HBsAg Screen (test code Nonreactive Nonreactive = 5195-3) THIERNO (test code = THIERNO) Specimen is considered negative for HBsAg. Lab Interpretation (test Normal code = 96479-6) [facility] [id number] 13:36:00 Test Item Value Reference Range Interpretation Comments Hepatitis C Ab (test Nonreactive Nonreactive code = 12974-6) THIERNO (test code = THIERNO) Feed In Worker ID - AAHAMID Lab Interpretation (test Normal code = 36283-7) [facility] HospitalHIV[facility] Antigen with HIV-1/2 [id number] 13:36:00 Test Item Value Reference Range Interpretation Comments HIV-1 Antigen with HIV Nonreactive Nonreactive 1&2 Antibody (test code = 98503-9) THIERNO (test code = THIERNO) Feed In Worker ID - AAHAMID Lab Interpretation (test Normal code = 46875-7) [facility] HospitalHemoglobin [id number] 13:36:00 Test Item Value Reference Range Interpretation Comments Hemoglobin A1C (test code = 4548-4) 5.8 % 4.3-6.1 Lab Interpretation (test code = Normal 18815-5) [facility] HospitalHep[facility] B surface [id number] 13:36:00 Test Item Value Reference Range Interpretation Comments HBsAg Screen (test code Nonreactive Nonreactive = 5195-3) THIERNO (test code = THIERNO) Specimen is considered negative for HBsAg. Lab Interpretation (test Normal code = 76181-5) [facility] HospitalHepatitis C [id number] 13:36:00 Test Item Value Reference Range Interpretation Comments Hepatitis C Ab (test Nonreactive Nonreactive code = 80066-8) THIERNO (test code = THIERNO) Feed In Worker ID - AAHAMID Lab Interpretation (test Normal code = 46217-7) [facility] HospitalHIV-1 Antigen with HIV-1/2 [id number] 13:36:00 Test Item Value Reference Range Interpretation Comments HIV-1 Antigen with HIV Nonreactive Nonreactive 1&2 Antibody (test code = 30704-0) THIERNO (test code = THIERNO) Feed In Worker ID - AAHAMID Lab Interpretation (test Normal code = 41176-7) [facility] HospitalHEMOGLOBIN [id number] 13:36:00 Test Item Value Reference Range Interpretation Comments HEMOGLOBIN A1C (BEAKER) (test code = 5.8 % 4.3-6.1 368) HEPATITIS B SURFACE [id number] 13:36:00 Test Item Value Reference Range Interpretation Comments HEPATITIS B SURFACE ANTIGEN (2) Nonreactive Nonreactive (BEAKER) (test code = 2585) Specimen is considered negative for HBsAg.HEPATITIS C [id number] 13:36:00 Test Item Value Reference Range Interpretation Comments HEPATITIS C ANTIBODY (BEAKER) Nonreactive Nonreactive (test code = 367) Feed In Worker ID - AAHAMIDHIV-1 ANTIGEN WITH HIV-1/2 [id number] 13:36:00 Test Item Value Reference Range Interpretation Comments HIV-1 ANTIGEN WITH HIV 1\\T\\2 Nonreactive Nonreactive ANTIBODY (2) (SERG) (test code = 2586) Feed In Worker ID - AAHAMIDHepatitis B surface [id number] 13:32:00 Test Item Value Reference Range Interpretation Comments Hep B S Ab (test code 762.5 See_Comment H [Auto mated = 65766-0) message] The system which generated this result transmit rosalba reference range : <8.0 mIU/mL. Th e reference range was not used to interpret this result as normal/abnormal . THIERNO (test code = THIERNO) Feed In Worker ID - AAHAMID Lab Interpretation Abnormal (test code = 65730-8) [facility], [id number] 13:32:00 Test Item Value Reference Range Interpretation Comments Hep B Core Total Ab Nonreactive Nonreactive (test code = 44905-2) THIERNO (test code = THIERNO) Feed In Worker ID - AAHAMID Lab Interpretation (test Normal code = 21155-2) [facility] HospitalHeroberts chapeltis B core antibody, [id number] 13:32:00 Test Item Value Reference Range Interpretation Comments Hep B C IgM (test code = Nonreactive Nonreactive 50559-9) THIERNO (test code = THIERNO) Feed In Worker ID - AAHAMID Lab Interpretation (test Normal code = 73745-0) [facility] HospitalHeroberts chapeltis B surface [id number] 13:32:00 Test Item Value Reference Range Interpretation Comments Hep B S Ab (test code 762.5 See_Comment H [Auto mated = 43661-5) message] The system which generated this result transmit rosalba reference range : <8.0 mIU/mL. Th e reference range was not used to interpret this result as normal/abnormal . THIERNO (test code = THIERNO) Feed In Worker ID - AAHAMID Lab Interpretation Abnormal (test code = 78830-9) [facility] HospitalHepatitis B core antibody, [id number] 13:32:00 Test Item Value Reference Range Interpretation Comments Hep B Core Total Ab Nonreactive Nonreactive (test code = 79841-7) THIERNO (test code = THIERNO) Feed In Worker ID - AAHAMID Lab Interpretation (test Normal code = 92177-3) [facility] HospitalHeroberts chapeltis B core antibody, [id number] 13:32:00 Test Item Value Reference Range Interpretation Comments Hep B C IgM (test code = Nonreactive Nonreactive 83008-0) THIERNO (test code = THIERNO) Feed In Worker ID - AAHAMID Lab Interpretation (test Normal code = 91579-4) [facility] HospitalHeroberts chapeltis B surface [id number] 13:32:00 Test Item Value Reference Range Interpretation Comments Hep B S Ab (test code 762.5 See_Comment H [Auto mated = 29579-8) message] The system which generated this result transmit rosalba reference range : <8.0 mIU/mL. Th e reference range was not used to interpret this result as normal/abnormal . THIERNO (test code = THIERNO) Feed In Worker ID - AAHAMID Lab Interpretation Abnormal (test code = 86344-0) [facility] B core antibody, [id number] 13:32:00 Test Item Value Reference Range Interpretation Comments Hep B Core Total Ab Nonreactive Nonreactive (test code = 05217-4) THIERNO (test code = THIERNO) Feed In Worker ID - AAHAMID Lab Interpretation (test Normal code = 90655-9) [facility] B core antibody, [id number] 13:32:00 Test Item Value Reference Range Interpretation Comments Hep B C IgM (test code = Nonreactive Nonreactive 52504-8) THIERNO (test code = THIERNO) Feed In Worker ID - AAHAMID Lab Interpretation (test Normal code = 23560-2) [facility] HospitalHeroberts chapeltis B surface briokwoo8800-01-07 13:32:00 Test Item Value Reference Range Interpretation Comments Hep B S Ab (test code 762.5 See_Comment H [Auto mated = 98052-3) message] The system which generated this result transmit rosalba reference range : <8.0 mIU/mL. Th e reference range was not used to interpret this result as normal/abnormal . THIERNO (test code = THIERNO) Feed In Worker ID - AAHAMID Lab Interpretation Abnormal (test code = 26764-7) [facility] HospitalHeroberts chapeltis B core antibody, [id number] 13:32:00 Test Item Value Reference Range Interpretation Comments Hep B Core Total Ab Nonreactive Nonreactive (test code = 61468-4) THIERNO (test code = THIERNO) Feed In Worker ID - TALIID Lab Interpretation (test Normal code = 58575-0) [facility] HospitalHepatitis B core antibody, [id number] 13:32:00 Test Item Value Reference Range Interpretation Comments Hep B C IgM (test code = Nonreactive Nonreactive 76902-4) THIERNO (test code = THIERNO) Feed In Worker ID - AAAGNIESZKAID Lab Interpretation (test Normal code = 42578-4) [facility] HospitalHEPATITIS B SURFACE [id number] 13:32:00 Test Item Value Reference Range Interpretation Comments HEPATITIS B SURFACE ANTIBODY 762.5 mIU/mL <8.0 H (BEAKER) (test code = 647) Feed In Worker ID - DEVONTEHEPATITIS B CORE ANTIBODY, [id number] 13:32:00 Test Item Value Reference Range Interpretation Comments HEPATITIS B CORE IGM ANTIBODY Nonreactive Nonreactive (BEAKER) (test code = 645) Feed In Worker ID - CATRACHOPATITIS B CORE ANTIBODY, [id number] 13:32:00 Test Item Value Reference Range Interpretation Comments HEPATITIS B CORE TOTAL ANTIBODY Nonreactive Nonreactive (BEAKER) (test code = 497) Feed In Worker ID - AAAGNIESZKAID1:1 MIXING STUDY, [id number] 13:26:00 Test Item Value Reference Range Interpretation Comments Protime (test code = 12.9 See_Comment [Autom ated message] 5902-2) The system [employer] generated this result transmitted ref erence range: 11.9 - 1 4.2 seconds. The re ference range was not u sed to interpret this result as normal/abnor mal. PTT (test code = 94669-4) 31.3 See_Comment [ Automated message] The system [employer] generated this result transmitted ref erence range: 22.5 - 3 6.0 seconds. The re ference range was not u sed to interpret this result as normal/abnor mal. PT 11/10 Mix (test code = 12.8 See_Comment [Au tomated message] 1595) The system [employer] generated this result transmitted ref erence range: 11.7 - 1 4.7 SECS. The refer ence range was not u sed to interpret this result as normal/abnor mal. PTT 1/ Mix (test code = 29.2 See_Comment [A utomated message] 1596) The system [employer] generated this result transmitted ref erence range: 22.5 - 3 6.0 SECS. The refer ence range was not u sed to interpret this result as normal/abnor mal. Lab Interpretation (test Normal code = 76395-8) [facility] MIXING STUDY, [id number] 13:26:00 Test Item Value Reference Range Interpretation Comments Protime (test code = 12.9 See_Comment [Autom ated message] 5902-2) The system [employer] generated this result transmitted ref erence range: 11.9 - 1 4.2 seconds. The re ference range was not u sed to interpret this result as normal/abnor mal. PTT (test code = 06265-5) 31.3 See_Comment [ Automated message] The system [employer] generated this result transmitted ref erence range: 22.5 - 3 6.0 seconds. The re ference range was not u sed to interpret this result as normal/abnor mal. PT 1/ Mix (test code = 12.8 See_Comment [Au tomated message] 1595) The system [employer] generated this result transmitted ref erence range: 11.7 - 1 4.7 SECS. The refer ence range was not u sed to interpret this result as normal/abnor mal. PTT / Mix (test code = 29.2 See_Comment [A utomated message] 1596) The system [employer] generated this result transmitted ref erence range: 22.5 - 3 6.0 SECS. The refer ence range was not u sed to interpret this result as normal/abnor mal. Lab Interpretation (test Normal code = 00959-1) [facility] MIXING STUDY, [id number] 13:26:00 Test Item Value Reference Range Interpretation Comments Protime (test code = 12.9 See_Comment [Autom ated message] 5902-2) The system [employer] generated this result transmitted ref erence range: 11.9 - 1 4.2 seconds. The re ference range was not u sed to interpret this result as normal/abnor mal. PTT (test code = 76979-1) 31.3 See_Comment [ Automated message] The system [employer] generated this result transmitted ref erence range: 22.5 - 3 6.0 seconds. The re ference range was not u sed to interpret this result as normal/abnor mal. PT 11/10 Mix (test code = 12.8 See_Comment [Au tomated message] 1595) The system [employer] generated this result transmitted ref erence range: 11.7 - 1 4.7 SECS. The refer ence range was not u sed to interpret this result as normal/abnor mal. PTT 11/10 Mix (test code = 29.2 See_Comment [A utomated message] 1596) The system [employer] generated this result transmitted ref erence range: 22.5 - 3 6.0 SECS. The refer ence range was not u sed to interpret this result as normal/abnor mal. Lab Interpretation (test Normal code = 69916-5) [facility] MIXING STUDY, [id number] 13:26:00 Test Item Value Reference Range Interpretation Comments Protime (test code = 12.9 See_Comment [Autom ated message] 5902-2) The system [employer] generated this result transmitted ref erence range: 11.9 - 1 4.2 seconds. The re ference range was not u sed to interpret this result as normal/abnor mal. PTT (test code = 88797-5) 31.3 See_Comment [ Automated message] The system [employer] generated this result transmitted ref erence range: 22.5 - 3 6.0 seconds. The re ference range was not u sed to interpret this result as normal/abnor mal. PT 11/10 Mix (test code = 12.8 See_Comment [Au tomated message] 1595) The system [employer] generated this result transmitted ref erence range: 11.7 - 1 4.7 SECS. The refer ence range was not u sed to interpret this result as normal/abnor mal. PTT 11/10 Mix (test code = 29.2 See_Comment [A utomated message] 1596) The system whic h generated this result transmitted ref erence range: 22.5 - 3 6.0 SECS. The refer ence range was not u sed to interpret this result as normal/abnor mal. Lab Interpretation (test Normal code = 79685-7) [facility] MIXING STUDY, [id number] 13:26:00 Test Item Value Reference Range Interpretation Comments PROTIME (BEAKER) (test code = 12.9 seconds 11.9-14.2 759) PARTIAL THROMBOPLASTIN TIME 31.3 seconds 22.5-36.0 (BEAKER) (test code = 760) PT 1/1 MIX (BEAKER) (test code = 12.8 SECS 11.7-14.7 1595) PTT 1/1 MIX (BEAKER) (test code 29.2 SECS 22.5-36.0 = 1596) Comprehensive metabolic [id number] 13:17:00 Test Item Value Reference Range Interpretation Comments Protein, Total (test 8.1 See_Comment [Autom ated code = 2885-2) message] The system which generated this result transmit rosalba reference range : 6.0 - 8.3 gm/dL . The reference range was not u sed to interpret th is result as normal/abnormal . Albumin (test code = 2.9 g/dL 3.5-5 L 28596-1) Alkaline Phosphatase 108 U/L 40-150 (test code = 6768-6) Total Bilirubin (test 0.3 mg/dL 0.2-1.2 code = 1975-2) Sodium (test code = 139 meq/L 161-471 7715-2) Potassium (test code 4.2 meq/L 3.5-5.1 = 2823-3) Chloride (test code = 98 meq/L 98-107 5-0) CO2 (test code = 25 meq/L 22-29 8-9) BUN (test code = 78 mg/dL 7-21 H 3094-0) Creatinine (test code 11.92 mg/dL 0.57-1.25 H = 2160-0) Glucose (test code = 114 mg/dL 70-105 H 2345-7) Calcium (test code = 7.0 mg/dL 8.4-10.2 L 64107-3) AST (test code = 34 U/L -34 1920-8) ALT (test code = 13 U/L - 1742-6) EGFR (test code = 5 mL/min/1.73 [place] [address]-2) NOT ACCURATE CREATININE CLEARANCE IN PREDICTING GLOMERULAR FILTRATION RATE . ESTIMATED GFR I S NOT APPLICABLE FOR DIALYSIS PATIEN TSSteve THIERNO (test code = THIERNO) Feed In Worker ID - AAHAMID Lab Interpretation Abnormal (test code = 39101-9) [facility] HospitalComprehensive metabolic [id number] 13:17:00 Test Item Value Reference Range Interpretation Comments Protein, Total (test 8.1 See_Comment [Autom ated code = 2885-2) message] The system which generated this result transmit rosalba reference range : 6.0 - 8.3 gm/dL . The reference range was not u sed to interpret th is result as normal/abnormal . Albumin (test code = 2.9 g/dL 3.5-5 L 37659-2) Alkaline Phosphatase 108 U/L 40-150 (test code = 6768-6) Total Bilirubin (test 0.3 mg/dL 0.2-1.2 code = 1975-2) Sodium (test code = 139 meq/L 169-063 3412-2) Potassium (test code 4.2 meq/L 3.5-5.1 = 2823-3) Chloride (test code = 98 meq/L 98-107 2075-0) CO2 (test code = 25 meq/L 22-29 2028-9) BUN (test code = 78 mg/dL 7-21 H 3094-0) Creatinine (test code 11.92 mg/dL 0.57-1.25 H = 2160-0) Glucose (test code = 114 mg/dL 70-105 H 2345-7) Calcium (test code = 7.0 mg/dL 8.4-10.2 L 80732-5) AST (test code = 34 U/L -34 0-8) ALT (test code = 13 U/L -55 1742-6) EGFR (test code = 5 mL/min/1.[place] [address]-2) NOT ACCURATE CREATININE CLEARANCE IN PREDICTING GLOMERULAR FILTRATION RATE . ESTIMATED GFR I S NOT APPLICABLE FOR DIALYSIS PATIEN TS. THIERNO (test code = THIERNO) Feed In Worker ID - AAHAMID Lab Interpretation Abnormal (test code = 78755-6) [facility] HospitalComprehenve metabolic [id number] 13:17:00 Test Item Value Reference Range Interpretation Comments Protein, Total (test 8.1 See_Comment [Autom ated code = 2885-2) message] The system which generated this result transmit rosalba reference range : 6.0 - 8.3 gm/dL . The reference range was not u sed to interpret th is result as normal/abnormal . Albumin (test code = 2.9 g/dL 3.5-5.0 L 92773-7) Alkaline Phosphatase 108 U/L 40-150 (test code = 6768-6) Total Bilirubin (test 0.3 mg/dL 0.2-1.2 code = 1975-2) Sodium (test code = 139 meq/L 246-466 2779-2) Potassium (test code 4.2 meq/L 3.5-5.1 = 2823-3) Chloride (test code = 98 meq/L 98-107 2075-0) CO2 (test code = 25 meq/L 22-29 2028-9) BUN (test code = 78 mg/dL 7-21 H 3094-0) Creatinine (test code 11.92 mg/dL 0.57-1.25 H = 2160-0) Glucose (test code = 114 mg/dL 70-105 H 2345-7) Calcium (test code = 7.0 mg/dL 8.4-10.2 L 38455-0) AST (test code = 34 U/L 5-34 1920-8) ALT (test code = 13 U/L 6-55 1742-6) EGFR (test code = 5 mL/min/1.[place] [address]-2) NOT ACCURATE CREATININE CLEARANCE IN PREDICTING GLOMERULAR FILTRATION RATE . ESTIMATED GFR I S NOT APPLICABLE FOR DIALYSIS PATIEN TS. THIERNO (test code = THIERNO) Feed In Worker ID - AAHAMID Lab Interpretation Abnormal (test code = 98465-0) [facility] HospitalComprehenve metabolic [id number] 13:17:00 Test Item Value Reference Range Interpretation Comments Protein, Total (test 8.1 See_Comment [Autom ated code = 2885-2) message] The system which generated this result transmit rosalba reference range : 6.0 - 8.3 gm/dL . The reference range was not u sed to interpret th is result as normal/abnormal . Albumin (test code = 2.9 g/dL 3.5-5.0 L 53238-2) Alkaline Phosphatase 108 U/L 40-150 (test code = 6768-6) Total Bilirubin (test 0.3 mg/dL 0.2-1.2 code = 1974-2) Sodium (test code = 139 meq/L 311-686 8968-2) Potassium (test code 4.2 meq/L 3.5-5.1 = 2823-3) Chloride (test code = 98 meq/L 98-107 2075-0) CO2 (test code = 25 meq/L 22-29 2028-9) BUN (test code = 78 mg/dL 7-21 H 3094-0) Creatinine (test code 11.92 mg/dL 0.57-1.25 H = 2160-0) Glucose (test code = 114 mg/dL 70-105 H 2345-7) Calcium (test code = 7.0 mg/dL 8.4-10.2 L 80502-8) AST (test code = 34 U/L 5-34 1920-8) ALT (test code = 13 U/L 6-55 1742-6) EGFR (test code = 5 mL/min/1.[place] [address]-1) NOT ACCURATE CREATININE CLEARANCE IN PREDICTING GLOMERULAR FILTRATION RATE . ESTIMATED GFR I S NOT APPLICABLE FOR DIALYSIS PATIEN TS. THIERNO (test code = THIERNO) Feed In Worker ID - AAHAMID Lab Interpretation Abnormal (test code = 11054-7) [facility] HospitalCOMPREHENSIVE METABOLIC [id number] 13:17:00 Test Item Value Reference Range Interpretation Comments TOTAL PROTEIN 8.1 gm/dL 6.0-8.3 (BEAKER) (test code = 770) ALBUMIN (BEAKER) 2.9 g/dL 3.5-5.0 L (test code = 1145) ALKALINE PHOSPHATASE 108 U/L 40-150 (BEAKER) (test code = 346) BILIRUBIN TOTAL 0.3 mg/dL 0.2-1.2 (BEAKER) (test code = 377) SODIUM (BEAKER) (test 139 meq/L 136-145 code = 381) POTASSIUM (BEAKER) 4.2 meq/L 3.5-5.1 (test code = 379) CHLORIDE (BEAKER) 98 meq/L 98-107 (test code = 382) CO2 (BEAKER) (test 25 meq/L 22-29 code = 355) BLOOD UREA NITROGEN 78 mg/dL 7-21 H (BEAKER) (test code = 354) CREATININE (BEAKER) 11.92 mg/dL 0.57-1.25 H (test code = 358) GLUCOSE RANDOM 114 mg/dL 70-105 H (BEAKER) (test code = 652) CALCIUM (BEAKER) 7.0 mg/dL 8.4-10.2 L (test code = 697) AST (SGOT) (BEAKER) 34 U/L 5-34 (test code = 353) ALT (SGPT) (BEAKER) 13 U/L 6-55 (test code = 347) EGFR (BEAKER) (test 5 mL/min/1.73 ESTIMAT ED GFR IS code = 1092) sq m NOT ACCURATE CREATININE CLEARANCE IN PREDICTING GLOMERULAR FILTRATION RATE . ESTIMATED GFR I S NOT APPLICABLE FOR DIALYSIS PATIEN TS. Feed In Worker ID - AAHAMIDLipid [id number] 13:14:00 Test Item Value Reference Range Interpretation Comments Triglycerides (test 268 mg/dL code = 2571-8) Cholesterol (test code 202 mg/dL = 2093-3) HDL (test code = 29 mg/dL 2085-9) LDL Calculated (test 119 mg/dL code = 62047-9) THIERNO (test code = THIERNO) Triglyceride Reference Range: Low Risk <150 Borderline 150-199 High Risk 200-499 Very High Risk >=500 Cholesterol Reference Range: Low Risk <200 Borderline 200-239 High Risk >240 HDL Cholesterol Reference Range: Low Risk >=60 High Risk <40 LDL Cholesterol Reference Range: Optimal <100 Near Optimal 100-129 Borderline 130-159 High 160-189 Very High >=190 Feed In Worker ID - AAHAMID [facility] HospitalGamma Glutamyl Transferase (GGT)2021-01-11 13:14:00 Test Item Value Reference Range Interpretation Comments GGT (test code = 2324-2) 48 U/L 9-64 THIERNO (test code = THIERNO) Feed In Worker ID - AAHAMID Lab Interpretation (test Normal code = 11636-2) [facility] HospitalPhosphorus2021-03-04 13:14:00 Test Item Value Reference Range Interpretation Comments Phosphorus (test code = 8.2 mg/dL 2.3-4.7 H 2777-1) THIERNO (test code = THIERNO) Feed In Worker ID - AAHAMID Lab Interpretation (test Abnormal code = 14870-1) [facility] [id number] 13:14:00 Test Item Value Reference Range Interpretation Comments Uric Acid (test code = 7.6 mg/dL 2.6-7.2 H 3084-1) THIERNO (test code = THIERNO) Feed In Worker ID - AAHAMID Lab Interpretation (test Abnormal code = 40939-6) [facility]PT/[id number] 13:14:00 Test Item Value Reference Interpretation Comments Range Protime (test code = 12.9 See_Comment [Autom ated 5902-2) message] The system which generated this result transmitted reference range : 11.9 - 14.2 seconds. The reference range was not used to interpret this result as normal/abnormal . INR (test code = 1.01 See_Comment [Automated 0351-6) message] The system which generated this result transmitted reference range : <=5.90. The reference range was not used to interpret this result as normal/abnormal . PTT (test code = 31.3 See_Comment [Automated 08239-7) message] The system which generated this result transmitted reference range : 22.5 - 36.0 seconds. The reference range was not used to interpret this result as normal/abnormal . THIERNO (test code = Effective 04/07/2019: THIERNO) PT Reference Range ChangeNew: 11.9-14.2 Previous: 11.7-14.7 RECOMMENDED COUMADIN/WARFARIN INR THERAPY RANGESSTANDARD DOSE: 2.0-3.0 Includes: PROPHYLAXIS for venous thrombosis, systemic embolization; TREATMENT for venous thrombosis and/or pulmonary embolus.HIGH RISK: Target INR is 2.5-3.5 for patients wiht mechanical heart valves. Lab Interpretation Normal (test code = 16357-9) [facility] [id number] 13:14:00 Test Item Value Reference Range Interpretation Comments Triglycerides (test 268 mg/dL code = 2571-8) Cholesterol (test code 202 mg/dL = 2093-3) HDL (test code = 29 mg/dL 2085-9) LDL Calculated (test 119 mg/dL code = 79584-9) THIERNO (test code = THIERNO) Triglyceride Reference Range: Low Risk <150 Borderline 150-199 High Risk 200-499 Very High Risk >=500 Cholesterol Reference Range: Low Risk <200 Borderline 200-239 High Risk >240 HDL Cholesterol Reference Range: Low Risk >=60 High Risk <40 LDL Cholesterol Reference Range: Optimal <100 Near Optimal 100-129 Borderline 130-159 High 160-189 Very High >=190 Feed In Worker ID - AALIBIA [facility] HospitalGamma Glutamyl Transferase (GGT)2021-01-11 13:14:00 Test Item Value Reference Range Interpretation Comments GGT (test code = 2324-2) 48 U/L 9-64 THIERNO (test code = THIERNO) Feed In Worker ID - AAHAMID Lab Interpretation (test Normal code = 59077-3) [facility] HospitalPhosphorus2021-03-04 13:14:00 Test Item Value Reference Range Interpretation Comments Phosphorus (test code = 8.2 mg/dL 2.3-4.7 H 2777-1) THIERNO (test code = THIERNO) Feed In Worker ID - AAHAMID Lab Interpretation (test Abnormal code = 72042-2) [facility] [id number] 13:14:00 Test Item Value Reference Range Interpretation Comments Uric Acid (test code = 7.6 mg/dL 2.6-7.2 H 3084-1) THIERNO (test code = THIERNO) Feed In Worker ID - AAHAMID Lab Interpretation (test Abnormal code = 23796-4) [facility]PT/[id number] 13:14:00 Test Item Value Reference Interpretation Comments Range Protime (test code = 12.9 See_Comment [Autom ated 5902-2) message] The system which generated this result transmitted reference range : 11.9 - 14.2 seconds. The reference range was not used to interpret this result as normal/abnormal . INR (test code = 1.01 See_Comment [Automated 6301-6) message] The system which generated this result transmitted reference range : <=5.90. The reference range was not used to interpret this result as normal/abnormal . PTT (test code = 31.3 See_Comment [Automated 51335-5) message] The system which generated this result transmitted reference range : 22.5 - 36.0 seconds. The reference range was not used to interpret this result as normal/abnormal . THIERNO (test code = Effective 04/07/2019: THIERNO) PT Reference Range ChangeNew: 11.9-14.2 Previous: 11.7-14.7 RECOMMENDED COUMADIN/WARFARIN INR THERAPY RANGESSTANDARD DOSE: 2.0-3.0 Includes: PROPHYLAXIS for venous thrombosis, systemic embolization; TREATMENT for venous thrombosis and/or pulmonary embolus.HIGH RISK: Target INR is 2.5-3.5 for patients wiht mechanical heart valves. Lab Interpretation Normal (test code = 97268-4) [facility] HospitalLip[facility] [id number] 13:14:00 Test Item Value Reference Range Interpretation Comments Triglycerides (test 268 mg/dL code = 2571-8) Cholesterol (test code 202 mg/dL = 2093-3) HDL (test code = 29 mg/dL 5-9) LDL Calculated (test 119 mg/dL code = 64096-8) THIERNO (test code = THIERNO) Triglyceride Reference Range: Low Risk <150 Borderline 150-199 High Risk 200-499 Very High Risk >=500 Cholesterol Reference Range: Low Risk <200 Borderline 200-239 High Risk >240 HDL Cholesterol Reference Range: Low Risk >=60 High Risk <40 LDL Cholesterol Reference Range: Optimal <100 Near Optimal 100-129 Borderline 130-159 High 160-189 Very High >=190 Feed In Worker ID - AAHAMID [facility] HospitalGamma Glutamyl Transferase (GGT)2021-01-11 13:14:00 Test Item Value Reference Range Interpretation Comments GGT (test code = 2324-2) 48 U/L 9-64 THIERNO (test code = THIERNO) Feed In Worker ID - AAHAMID Lab Interpretation (test Normal code = 70545-4) [facility] HospitalPhosphorus2021-[facility] 13:14:00 Test Item Value Reference Range Interpretation Comments Phosphorus (test code = 8.2 mg/dL 2.3-4.7 H 2777-1) THIERNO (test code = THIERNO) Feed In Worker ID - AAHAMID Lab Interpretation (test Abnormal code = 17820-5) [facility] [id number] 13:14:00 Test Item Value Reference Range Interpretation Comments Uric Acid (test code = 7.6 mg/dL 2.6-7.2 H 3084-1) THIERNO (test code = THIERNO) Feed In Worker ID - AALIBIA Lab Interpretation (test Abnormal code = 53914-2) [facility]PT/[id number] 13:14:00 Test Item Value Reference Interpretation Comments Range Protime (test code = 12.9 See_Comment [Autom ated 5902-2) message] The system which generated this result transmitted reference range : 11.9 - 14.2 seconds. The reference range was not used to interpret this result as normal/abnormal . INR (test code = 1.01 See_Comment [Automated 1971-6) message] The system which generated this result transmitted reference range : <=5.90. The reference range was not used to interpret this result as normal/abnormal . PTT (test code = 31.3 See_Comment [Automated 46885-1) message] The system which generated this result transmitted reference range : 22.5 - 36.0 seconds. The reference range was not used to interpret this result as normal/abnormal . THIERNO (test code = Effective 04/07/2019: THIERNO) PT Reference Range ChangeNew: 11.9-14.2 Previous: 11.7-14.7 RECOMMENDED COUMADIN/WARFARIN INR THERAPY RANGESSTANDARD DOSE: 2.0-3.0 Includes: PROPHYLAXIS for venous thrombosis, systemic embolization; TREATMENT for venous thrombosis and/or pulmonary embolus.HIGH RISK: Target INR is 2.5-3.5 for patients wiht mechanical heart valves. Lab Interpretation Normal (test code = 46492-5) [facility] HospitalLipid [id number] 13:14:00 Test Item Value Reference Range Interpretation Comments Triglycerides (test 268 mg/dL code = 2571-8) Cholesterol (test code 202 mg/dL = 2093-3) HDL (test code = 29 mg/dL 2085-9) LDL Calculated (test 119 mg/dL code = 76104-8) THIERNO (test code = THIERNO) Triglyceride Reference Range: Low Risk <150 Borderline 150-199 High Risk 200-499 Very High Risk >=500 Cholesterol Reference Range: Low Risk <200 Borderline 200-239 High Risk >240 HDL Cholesterol Reference Range: Low Risk >=60 High Risk <40 LDL Cholesterol Reference Range: Optimal <100 Near Optimal 100-129 Borderline 130-159 High 160-189 Very High >=190 Feed In Worker ID - AAAGNIESZKAID [facility] HospitalGamma Glutamyl Transferase (GGT)2021-01-11 13:14:00 Test Item Value Reference Range Interpretation Comments GGT (test code = 2324-2) 48 U/L 9-64 THIERNO (test code = THIERNO) Feed In Worker ID - AAHAMID Lab Interpretation (test Normal code = 49662-8) [facility] HospitalPhosphorus2021-03-04 13:14:00 Test Item Value Reference Range Interpretation Comments Phosphorus (test code = 8.2 mg/dL 2.3-4.7 H 2777-1) THIERNO (test code = THIERNO) Feed In Worker ID - AAHAMID Lab Interpretation (test Abnormal code = 31707-1) [facility] [id number] 13:14:00 Test Item Value Reference Range Interpretation Comments Uric Acid (test code = 7.6 mg/dL 2.6-7.2 H 3084-1) THIERNO (test code = THIERNO) Feed In Worker ID - AAHAMID Lab Interpretation (test Abnormal code = 42918-8) [facility] HospitalPT/[id number] 13:14:00 Test Item Value Reference Interpretation Comments Range Protime (test code = 12.9 See_Comment [Autom ated 5902-2) message] The system which generated this result transmitted reference range : 11.9 - 14.2 seconds. The reference range was not used to interpret this result as normal/abnormal . INR (test code = 1.01 See_Comment [Automated 9671-6) message] The system which generated this result transmitted reference range : <=5.90. The reference range was not used to interpret this result as normal/abnormal . PTT (test code = 31.3 See_Comment [Automated 74850-8) message] The system which generated this result transmitted reference range : 22.5 - 36.0 seconds. The reference range was not used to interpret this result as normal/abnormal . THIERNO (test code = Effective 04/07/2019: THIERNO) PT Reference Range ChangeNew: 11.9-14.2 Previous: 11.7-14.7 RECOMMENDED COUMADIN/WARFARIN INR THERAPY RANGESSTANDARD DOSE: 2.0-3.0 Includes: PROPHYLAXIS for venous thrombosis, systemic embolization; TREATMENT for venous thrombosis and/or pulmonary embolus.HIGH RISK: Target INR is 2.5-3.5 for patients wiht mechanical heart valves. Lab Interpretation Normal (test code = 97411-1) [facility] HospitalPT/[id number] 13:14:00 Test Item Value Reference Range Interpretation Comments PROTIME (BEAKER) (test 12.9 seconds 11.9-14.2 code = 759) INR (BEAKER) (test 1.01 See_Comment [Automat ed code = 370) message] The Rapt stem which generated this result transmitted reference range : <=5.90. The reference range was not used to interpret this result as normal/abnormal . PARTIAL THROMBOPLASTIN 31.3 seconds 22.5-36.0 TIME (BEAKER) (test code = 760) Effective 04/07/2019: PT Reference Range ChangeNew: 11.9-14.2 Previous: 11.7- 14.7RECOMMENDED COUMADIN/WARFARIN INR THERAPY RANGESSTANDARD DOSE: 2.0-3.0 Includes: PROPHYLAXIS for venous thrombosis, systemic embolization; TREATMENT for venous thrombosis and/or pulmonary embolus.HIGH RISK: Target INR is 2.5-3.5 for patients wiht mechanical heart valves.[id number] 13:14:00 Test Item Value Reference Range Interpretation Comments PHOSPHORUS (BEAKER) (test code = 8.2 mg/dL 2.3-4.7 H 604) Feed In Worker ID - AAHAMIDURIC [id number] 13:14:00 Test Item Value Reference Range Interpretation Comments URIC ACID (BEAKER) (test code = 7.6 mg/dL 2.6-7.2 H 773) Feed In Worker ID - AAHAMIDLIPID [id number] 13:14:00 Test Item Value Reference Range Interpretation Comments TRIGLYCERIDES (BEAKER) (test code = 268 mg/dL 540) CHOLESTEROL (BEAKER) (test code = 202 mg/dL 631) HDL CHOLESTEROL (BEAKER) (test code 29 mg/dL = 976) LDL CHOLESTEROL CALCULATED (BEAKER) 119 mg/dL (test code = 633) Triglyceride Reference Range: Low Risk <150 Borderline 150-199 High Risk 200- 499 Very High Risk >=500Cholesterol Reference Range: Low Risk <200 Borderline 200-239 High Risk >240HDL Cholesterol Reference Range: Low Risk >=60 High Risk <40LDL Cholesterol Reference Range: Optimal <100 Near Optimal 100-129 Borderline 130-159 High 160-189 Very High >=190 Feed In Worker ID - AAHAMIDGAMMA GLUTAMYL TRANSFERASE (GGT)2021-01-11 13:14:00 Test Item Value Reference Range Interpretation Comments GAMMA GLUTAMYL TRANSFERASE (BEAKER) 48 U/L 9-64 (test code = 364) Feed In Worker ID - DEVONTEPTH, [id number] 13:13:00 Test Item Value Reference Range Interpretation Comments PTH (test code = 2731-8) 418.1 pg/mL 8.5-72.5 H THIERNO (test code = THIERNO) Feed In Worker ID - AAAGNIESZKALUIS FERNANDO Lab Interpretation (test Abnormal code = 57615-4) [facility] HospitalProthrombin time/[id number] 13:13:00 Test Item Value Reference Interpretation Comments Range Protime (test code = 12.9 See_Comment [Autom ated 1922-2) message] The system which generated this result transmitted reference range : 11.9 - 14.2 seconds. The reference range was not used to interpret this result as normal/abnormal . INR (test code = 1.01 See_Comment [Automated 2971-6) message] The system which generated this result transmitted reference range : <=5.90. The reference range was not used to interpret this result as normal/abnormal . THIERNO (test code = Effective 04/07/2019: THIERNO) PT Reference Range ChangeNew: 11.9-14.2 Previous: 11.7-14.7 RECOMMENDED COUMADIN/WARFARIN INR THERAPY RANGESSTANDARD DOSE: 2.0-3.0 Includes: PROPHYLAXIS for venous thrombosis, systemic embolization; TREATMENT for venous thrombosis and/or pulmonary embolus.HIGH RISK: Target INR is 2.5-3.5 for patients wiht mechanical heart valves. Lab Interpretation Normal (test code = 16608-3) [facility] HospitalPT, [id number] 13:13:00 Test Item Value Reference Range Interpretation Comments PTH (test code = 2731-8) 418.1 pg/mL 8.5-72.5 H THIERNO (test code = THIERNO) Feed In Worker ID - AAAGNIESZKAID Lab Interpretation (test Abnormal code = 45656-7) [facility] HospitalProthrombin time/[id number] 13:13:00 Test Item Value Reference Interpretation Comments Range Protime (test code = 12.9 See_Comment [Autom ated 5902-2) message] The system which generated this result transmitted reference range : 11.9 - 14.2 seconds. The reference range was not used to interpret this result as normal/abnormal . INR (test code = 1.01 See_Comment [Automated 6301-6) message] The system which generated this result transmitted reference range : <=5.90. The reference range was not used to interpret this result as normal/abnormal . THIERNO (test code = Effective 04/07/2019: THIERNO) PT Reference Range ChangeNew: 11.9-14.2 Previous: 11.7-14.7 RECOMMENDED COUMADIN/WARFARIN INR THERAPY RANGESSTANDARD DOSE: 2.0-3.0 Includes: PROPHYLAXIS for venous thrombosis, systemic embolization; TREATMENT for venous thrombosis and/or pulmonary embolus.HIGH RISK: Target INR is 2.5-3.5 for patients wiht mechanical heart valves. Lab Interpretation Normal (test code = 22925-8) [facility] HospitalPTH, [id number] 13:13:00 Test Item Value Reference Range Interpretation Comments PTH (test code = 2731-8) 418.1 pg/mL 8.5-72.5 H THIERNO (test code = THIERNO) Feed In Worker ID - AALIBIA Lab Interpretation (test Abnormal code = 04008-6) [facility] HospitalProthrombin time/[id number] 13:13:00 Test Item Value Reference Interpretation Comments Range Protime (test code = 12.9 See_Comment [Autom ated 5902-2) message] The system which generated this result transmitted reference range : 11.9 - 14.2 seconds. The reference range was not used to interpret this result as normal/abnormal . INR (test code = 1.01 See_Comment [Automated 6301-6) message] The system which generated this result transmitted reference range : <=5.90. The reference range was not used to interpret this result as normal/abnormal . THIERNO (test code = Effective 04/07/2019: THIERNO) PT Reference Range ChangeNew: 11.9-14.2 Previous: 11.7-14.7 RECOMMENDED COUMADIN/WARFARIN INR THERAPY RANGESSTANDARD DOSE: 2.0-3.0 Includes: PROPHYLAXIS for venous thrombosis, systemic embolization; TREATMENT for venous thrombosis and/or pulmonary embolus.HIGH RISK: Target INR is 2.5-3.5 for patients wiht mechanical heart valves. Lab Interpretation Normal (test code = 44904-6) [facility] HospitalPT, [id number] 13:13:00 Test Item Value Reference Range Interpretation Comments PTH (test code = 2731-8) 418.1 pg/mL 8.5-72.5 H THIERNO (test code = THIERNO) Feed In Worker ID - AAHAMID Lab Interpretation (test Abnormal code = 24864-6) [facility] HospitalProthrombin time/[id number] 13:13:00 Test Item Value Reference Interpretation Comments Range Protime (test code = 12.9 See_Comment [Autom ated 5902-2) message] The system which generated this result transmitted reference range : 11.9 - 14.2 seconds. The reference range was not used to interpret this result as normal/abnormal . INR (test code = 1.01 See_Comment [Automated 6301-6) message] The system which generated this result transmitted reference range : <=5.90. The reference range was not used to interpret this result as normal/abnormal . THIERNO (test code = Effective 04/07/2019: THIERNO) PT Reference Range ChangeNew: 11.9-14.2 Previous: 11.7-14.7 RECOMMENDED COUMADIN/WARFARIN INR THERAPY RANGESSTANDARD DOSE: 2.0-3.0 Includes: PROPHYLAXIS for venous thrombosis, systemic embolization; TREATMENT for venous thrombosis and/or pulmonary embolus.HIGH RISK: Target INR is 2.5-3.5 for patients wiht mechanical heart valves. Lab Interpretation Normal (test code = 63935-8) [facility] HospitalPT, [id number] 13:13:00 Test Item Value Reference Range Interpretation Comments PARATHYROID HORMONE INTACT 418.1 pg/mL 8.5-72.5 H (BEAKER) (test code = 577) Feed In Worker ID - AAHAMIDPROTHROMBIN TIME/[id number] 13:13:00 Test Item Value Reference Range Interpretation Comments PROTIME (BEDANIELLE) 12.9 seconds 11.9-14.2 (test code = 759) INR (BEAKER) (test 1.01 See_Comment [Automat ed message] code = 370) The system [employer] generated this result transmitted ref erence range: <=5.90. The reference range was not used to int erpret this result as normal/abnormal . Effective 04/07/2019: PT Reference Range ChangeNew: 11.9-14.2 Previous: 11.7- 14.7RECOMMENDED COUMADIN/WARFARIN INR THERAPY RANGESSTANDARD DOSE: 2.0-3.0 Includes: PROPHYLAXIS for venous thrombosis, systemic embolization; TREATMENT for venous thrombosis and/or pulmonary embolus.HIGH RISK: Target INR is 2.5-3.5 for patients wiht mechanical heart valves.Urinalysis, [id number] 13:09:00 Test Item Value Reference Range Interpretation Comments Color, UA (test code Yellow = 5778-6) Clarity, UA (test Hazy code = 5767-9) Specific Drake, UA 1.015 1.001-1.035 (test code = 5811-5) pH, UA (test code = 6.5 5.0-8.0 5803-2) Protein, UA (test 300 mg/dL Negative A code = 67186-9) Glucose, UA (test Negative Negative code = 365) Ketones, UA (test Negative Negative code = 2514-8) Bilirubin, UA (test Negative Negative code = 59162-9) Blood, UA (test code Small Negative A = 52210-2) Nitrite, UA (test Negative Negative code = 5802-4) Leukocytes, UA (test Large Negative A code = 5799-2) Urobilinogen, UA 0.2 mg/dL 0.2-1 (test code = 62510-6) RBC, UA (test code = 12 See_Comment [Autom ated 89468-9) message] The system which generated this result transmit rosalba reference range : /HPF. The reference range was not used to interpret this result as normal/abnormal . WBC, UA (test code = 74 See_Comment [Autom ated 5821-4) message] The system which generated this result transmit rosalba reference range : /HPF. The reference range was not used to interpret this result as normal/abnormal . Bacteria, UA (test Few code = 35981-3) Squam Epithel, UA 31 See_Comment [Automate d (test code = 04084-7) messag e] The system which generated this result transmit rosalba reference range : /HPF. The reference range was not used to interpret this result as normal/abnormal . Amorphous Crystals Rare (test code = 71092-0) Yeast (test code = Rare 61896-5) Specimen Source (test code = 2795) THIERNO (test code = THIERNO) Feed In Worker ID - [auto]Feed In Worker ID - QC Lab Interpretation Abnormal (test code = 50145-6) [facility] HospitalUrinalysis, [id number] 13:09:00 Test Item Value Reference Range Interpretation Comments Color, UA (test code Yellow = 5778-6) Clarity, UA (test Hazy code = 5767-9) Specific Drake, UA 1.015 1.001-1.035 (test code = 5811-5) pH, UA (test code = 6.5 5.0-8.0 5803-2) Protein, UA (test 300 mg/dL Negative A code = 79015-0) Glucose, UA (test Negative Negative code = 365) Ketones, UA (test Negative Negative code = 2514-8) Bilirubin, UA (test Negative Negative code = 55928-5) Blood, UA (test code Small Negative A = 33863-3) Nitrite, UA (test Negative Negative code = 5802-4) Leukocytes, UA (test Large Negative A code = 5799-2) Urobilinogen, UA 0.2 mg/dL 0.2-1 (test code = 64900-2) RBC, UA (test code = 12 See_Comment [Autom ated 65036-3) message] The system which generated this result transmit rosalba reference range : /HPF. The reference range was not used to interpret this result as normal/abnormal . WBC, UA (test code = 74 See_Comment [Autom ated 5821-4) message] The system which generated this result transmit rosalba reference range : /HPF. The reference range was not used to interpret this result as normal/abnormal . Bacteria, UA (test Few code = 28625-7) Squam Epithel, UA 31 See_Comment [Automate d (test code = 76931-8) messag e] The system which generated this result transmit rosalba reference range : /HPF. The reference range was not used to interpret this result as normal/abnormal . Amorphous Crystals Rare (test code = 70636-8) Yeast (test code = Rare 62407-9) Specimen Source (test code = 2795) THIERNO (test code = THIERNO) Feed In Worker ID - [auto]Feed In Worker ID - QC Lab Interpretation Abnormal (test code = 58559-3) [facility] HospitalUrinalysis, [id number] 13:09:00 Test Item Value Reference Range Interpretation Comments Color, UA (test code Yellow = 5778-6) Clarity, UA (test Hazy code = 5767-9) Specific Drake, UA 1.015 1.001-1.035 (test code = 5811-5) pH, UA (test code = 6.5 5.0-8.0 5803-2) Protein, UA (test 300 mg/dL Negative A code = 21984-7) Glucose, UA (test Negative Negative code = 365) Ketones, UA (test Negative Negative code = 2514-8) Bilirubin, UA (test Negative Negative code = 59467-5) Blood, UA (test code Small Negative A = 43466-7) Nitrite, UA (test Negative Negative code = 5802-4) Leukocytes, UA (test Large Negative A code = 5799-2) Urobilinogen, UA 0.2 mg/dL 0.2-1.0 (test code = 26039-3) RBC, UA (test code = 12 See_Comment [Autom ated 37958-3) message] The system which generated this result transmit rosalba reference range : /HPF. The reference range was not used to interpret this result as normal/abnormal . WBC, UA (test code = 74 See_Comment [Autom ated 5821-4) message] The system which generated this result transmit rosalba reference range : /HPF. The reference range was not used to interpret this result as normal/abnormal . Bacteria, UA (test Few code = 59185-1) Squam Epithel, UA 31 See_Comment [Automate d (test code = 56844-0) messag e] The system which generated this result transmit rosalba reference range : /HPF. The reference range was not used to interpret this result as normal/abnormal . Amorphous Crystals Rare (test code = 97827-5) Yeast (test code = Rare 42944-9) Specimen Source (test code = 2795) THIERNO (test code = THIERNO) Feed In Worker ID - [auto]Feed In Worker ID - QC Lab Interpretation Abnormal (test code = 48157-2) [facility] HospitalUrinalysis, [id number] 13:09:00 Test Item Value Reference Range Interpretation Comments Color, UA (test code Yellow = 5778-6) Clarity, UA (test Hazy code = 5767-9) Specific Drake, UA 1.015 1.001-1.035 (test code = 5811-5) pH, UA (test code = 6.5 5.0-8.0 5803-2) Protein, UA (test 300 mg/dL Negative A code = 70727-2) Glucose, UA (test Negative Negative code = 365) Ketones, UA (test Negative Negative code = 2514-8) Bilirubin, UA (test Negative Negative code = 79217-9) Blood, UA (test code Small Negative A = 98073-6) Nitrite, UA (test Negative Negative code = 5802-4) Leukocytes, UA (test Large Negative A code = 5799-2) Urobilinogen, UA 0.2 mg/dL 0.2-1.0 (test code = 69212-8) RBC, UA (test code = 12 See_Comment [Autom ated 05212-5) message] The system which generated this result transmit rosalba reference range : /HPF. The reference range was not used to interpret this result as normal/abnormal . WBC, UA (test code = 74 See_Comment [Autom ated 5821-4) message] The system which generated this result transmit rosalba reference range : /HPF. The reference range was not used to interpret this result as normal/abnormal . Bacteria, UA (test Few code = 87013-3) Squam Epithel, UA 31 See_Comment [Automate d (test code = 99385-5) messag e] The system which generated this result transmit rosalba reference range : /HPF. The reference range was not used to interpret this result as normal/abnormal . Amorphous Crystals Rare (test code = 00776-5) Yeast (test code = Rare 46208-7) Specimen Source (test code = 2795) THIERNO (test code = THIERNO) Feed In Worker ID - [auto]Feed In Worker ID - QC Lab Interpretation Abnormal (test code = 31535-5) [facility] [id number] 13:09:00 Test Item Value Reference Range Interpretation Comments COLOR (BEAKER) (test code = 470) Yellow CLARITY (BEAKER) (test code = 469) Hazy SPECIFIC GRAVITY UA (BEAKER) (test 1.015 1.001-1.035 code = 468) PH UA (BEAKER) (test code = 467) 6.5 5.0-8.0 PROTEIN UA (BEAKER) (test code = 300 mg/dL Negative A 464) GLUCOSE UA (BEAKER) (test code = Negative Negative 365) KETONES UA (BEAKER) (test code = Negative Negative 371) BILIRUBIN UA (BEAKER) (test code = Negative Negative 462) BLOOD UA (BEAKER) (test code = 461) Small Negative A NITRITE UA (BEAKER) (test code = Negative Negative 465) LEUKOCYTE ESTERASE UA (BEAKER) Large Negative A (test code = 466) UROBILINOGEN UA (BEAKER) (test code 0.2 mg/dL 0.2-1.0 = 463) RBC UA (BEAKER) (test code = 519) 12 /HPF WBC UA (BEAKER) (test code = 520) 74 /HPF BACTERIA (BEAKER) (test code = 517) Few SQUAMOUS EPITHELIAL (BEAKER) (test 31 /HPF code = 516) AMORPHOUS CRYSTALS (BEAKER) (test Rare code = 1584) YEAST (BEAKER) (test code = 1585) Rare SOURCE(BEAKER) (test code = 2795) Feed In Worker ID - [auto]Feed In Worker ID - QCComplement Component [id number] 13:07:00 Test Item Value Reference Range Interpretation Comments C4 Complement (test code = 13 mg/dL 15-57 L 77942-2) THIERNO (test code = THIERNO) Feed In Worker ID - AAHAMID Lab Interpretation (test Abnormal code = 57185-2) [facility] [id number] 13:07:00 Test Item Value Reference Range Interpretation Comments C3 Complement (test code = 39 mg/dL 82-193 L 4487-5) THIERNO (test code = THIERNO) Feed In Worker ID - AAHAMID Lab Interpretation (test Abnormal code = 69677-3) [facility] [id number] 13:07:00 Test Item Value Reference Range Interpretation Comments C4 Complement (test code = 13 mg/dL 15-57 L 16549-5) THIERNO (test code = THIERNO) Feed In Worker ID - AAHAMID Lab Interpretation (test Abnormal code = 26282-2) [facility] [id number] 13:07:00 Test Item Value Reference Range Interpretation Comments C3 Complement (test code = 39 mg/dL 82-193 L 4487-5) THIERNO (test code = THIERNO) Feed In Worker ID - AAHAMID Lab Interpretation (test Abnormal code = 88397-1) [facility] [id number] 13:07:00 Test Item Value Reference Range Interpretation Comments C4 Complement (test code = 13 mg/dL 15-57 L 52567-0) THIERNO (test code = THIERNO) Feed In Worker ID - AAHAMID Lab Interpretation (test Abnormal code = 82876-6) [facility] [id number] 13:07:00 Test Item Value Reference Range Interpretation Comments C3 Complement (test code = 39 mg/dL 82-193 L 4487-5) THIERNO (test code = THIERNO) Feed In Worker ID - AAHAMID Lab Interpretation (test Abnormal code = 45719-6) [facility] [id number] 13:07:00 Test Item Value Reference Range Interpretation Comments C4 Complement (test code = 13 mg/dL 15-57 L 15254-2) THIERNO (test code = THIERNO) Feed In Worker ID - AAHAMID Lab Interpretation (test Abnormal code = 47679-8) [facility] [id number] 13:07:00 Test Item Value Reference Range Interpretation Comments C3 Complement (test code = 39 mg/dL 82-193 L 4487-5) THIERNO (test code = THIERNO) Feed In Worker ID - AAHAMID Lab Interpretation (test Abnormal code = 62175-6) [facility]COMPLE[facility]ONENT [id number] 13:07:00 Test Item Value Reference Range Interpretation Comments C4 COMPLEMENT (BEAKER) (test code = 13 mg/dL 15-57 L 394) Feed In Worker ID - DEVONTECOMPLEMENT COMPONENT [id number] 13:07:00 Test Item Value Reference Range Interpretation Comments C3 COMPLEMENT (BEAKER) (test code = 39 mg/dL 82-193 L 393) Feed In Worker ID - AAAGNIESZKAIDU/S, ABDOMINAL, [id number] 13:05:00Reason for Exam:->Kidney transplant evaluation; comment on number of renal cysts on each side to meet criteria for Acquired Cystic Kidney Disease [facility] 1990 Sex: FFINAL REPORT TECHNIQUE: Grayscale ultrasound of the abdomen. Grayscale, color Doppler, and spectral Doppler ultrasound of the distal aorta and bilateral iliac arteries. INDICATION:Kidney transplant evaluation; comment on number of renal cysts on each side to meet criteria for Acquired Cystic Kidney Disease. COMPARISON: None. FINDINGS: ABDOMEN MIDLINE VASCULATURE: The visualized inferior vena cava is patent. Portal vein is patent. The maximum visualized aortic diameter is 1.9 cm. LIVER: Smooth liver contour. No focal lesions. The main portal vein measures 1.5 cm. BILIARY:Gallbladder: No gallstones or sludge. No gallbladder wall thickening, pericholecystic fluid, or distention.Negative sonographic Hernández sign.Common bile duct measures 0.4 cm, within normal limits. No intrahepatic biliary ductal dilatation. PANCREAS: Incompletely visualized due to overlying bowel gas. The partially visualized pancreatic head, neck, body, and tail are normal. SPLEEN: No splenomegaly. The spleen measures 9.2 cm. PERITONEUM: Trace perihepatic ascites. KIDNEYS: Normal in size bilaterally. Increased cortical echogenicity. No hydronephrosis. No sonographically evident solid mass lesion. Trace right pleural effusion PELVIS The distal abdominal aorta is patent and measures 1.4 cm. The common iliac arteries are patent and measure 0.9 cm on the right and 1 cm on the left.The external iliac arteries are patent and measure 0.6 cm on the right and 0.6 cm on the left.Neither internal iliac artery wasconfidently visualized. Normal velocities and waveforms in the distal aorta and bilateral common iliac arteries. The bilateral common and external iliac veins are patent. The right internal iliac vein is patent. The left internal iliac vein is not confidently visualized. IMPRESSION: 1.Medical renal disease without renal cysts. 2.Neither internal iliac artery nor the left internal iliac vein were confidently visualized. Otherwise, this is an unremarkable sonogram and Doppler evaluation of the iliac vessels bilaterally. 3.Trace right pleural effusion with trace perihepatic ascites. Signed: Porter Dubon Verified Date/Time: 01/11/2021 13:05:03 U/S, PELVIS, WITH [id number] 13:05:00Reason for Exam:->esrd; eval for renal txpassess iliacs [facility] : 1990 Sex: FFINAL REPORT TECHNIQUE: Grayscale ultrasound of the abdomen. Grayscale, color Doppler, and spectral Doppler ultrasound of the distal aorta and bilateral iliac arteries. INDICATION:Kidney transplant evaluation; comment on number of renal cysts on each side to meet criteria for Acquired Cystic Kidney Disease. COMPARISON: None. FINDINGS: ABDOMEN MIDLINE VASCULATURE: The visualized inferior vena cava is patent. Portal vein is patent. The maximum visualized aortic diameter is 1.9 cm. LIVER: Smooth liver contour. No focal lesions. The main portal vein measures 1.5 cm. BILIARY:Gallbladder: No gallstones or sludge. No gallbladder wall thickening, pericholecystic fluid, or distention.Negative sonographic Hernández sign.Common bile duct measures 0.4 cm, within normal limits. No intrahepatic biliary ductal dilatation. PANCREAS: Incompletely visualized due to overlying bowel gas. The partially visualized pancreatic head, neck, body, and tail are normal. SPLEEN: No splenomegaly. The spleen measures 9.2 cm. PERITONEUM: Trace perihepatic ascites. KIDNEYS: Normal in size bilaterally. Increased cortical echogenicity. No hydronephrosis. No sonographically evident solid mass lesion. Trace right pleural effusion PELVIS The distal abdominal aorta is patent and measures 1.4 cm. The common iliac arteries are patent and measure 0.9 cm on the right and 1 cm on the left.The external iliac arteries are patent and measure 0.6 cm on the right and 0.6 cm on the left.Neither internal iliac artery wasconfidently visualized. Normal velocities and waveforms in the distal aorta and bilateral common iliac arteries. The bilateral common and external iliac veins are patent. The right internal iliac vein is patent. The left internal iliac vein is not confidently visualized. IMPRESSION: 1.Medical renal disease without renal cysts. 2.Neither internal iliac artery nor the left internal iliac vein were confidently visualized. Otherwise, this is an unremarkable sonogram and Doppler evaluation of the iliac vessels bilaterally. 3.Trace right pleural effusion with trace perihepatic ascites. Signed: Porter Dubon Verified Date/Time: 01/11/2021 13:05:03 US pelvis with [id number] 13:05:00Interface, External Ris In - 01/11/2021 1:07 PM CSTFINAL REPORT TECHNIQUE: Grayscale ultrasound of the abdomen. Grayscale, color Doppler, and spectral Doppler ultrasound of the distal aorta and bilateral iliac arteries. INDICATION: Kidney transplant evaluation; comment on number of renal cysts on each side to meet criteria for Acquired Cystic Kidney Disease. COMPARISON: None. FINDINGS: ABDOMEN MIDLINE VASCULATURE: The visualized inferior vena cava is patent. Portal vein is patent. The maximum visualized aortic diameter is 1.9 cm. LIVER: Smooth liver contour. No focal lesions. The main portal vein measures 1.5 cm. BILIARY:Gallbladder: No gallstones or sludge. No gallbladder wall thickening, pericholecystic fluid, or distention. Negative sonographic Hernández sign.Common bile ductmeasures 0.4 cm, within normal limits. No intrahepatic biliary ductal dilatation. PANCREAS: Incompletely visualized due to overlying bowel gas. The partially visualized pancreatic head, neck, body, andtail are normal. SPLEEN: No splenomegaly. The spleen measures 9.2 cm. PERITONEUM: Trace perihepatic ascites. KIDNEYS: Normal in size bilaterally. Increased cortical echogenicity. No hydronephrosis. No sonographically evident solid mass lesion. Trace right pleural effusion PELVIS The distal abdominal ao rta is patent and measures 1.4 cm. The common iliac arteries are patent and measure 0.9 cm on the right and 1 cm on the left.The external iliac arteries are patent and measure 0.6 cm on the right and 0.6 cm on the left.Neither internal iliac artery was confidently visualized. Normal velocities and waveforms in the distal aorta and bilateral common iliac arteries. The bilateral common and external iliac veins are patent. The right internal iliac vein is patent. The left internal iliac vein is not confidently visualized. IMPRESSION: 1.Medical renal disease without renal cysts. 2.Neither internal iliac artery nor the left internal iliac vein were confidently visualized. Otherwise, this is an unremarka ble sonogram and Doppler evaluation of the iliac vessels bilaterally. 3.Trace right pleural effusionwith trace perihepatic ascites. Signed: Rio Dubon MDReport Verified Date/Time: 01/11/2021 13:05:03 [facility] [id number] 13:05:00Interface, External Ris In - 01/11/2021 1:07 PM CSTFINAL REPORT TECHNIQUE: Grayscale ultrasound of the abdomen. Grayscale, color Doppler, and spectral Doppler ultrasound of the distal aorta and bilateral iliac arteries. INDICATION: Kidney transplant evaluation; comment on number of renal cysts on each side to meet criteria for Acquired Cystic Kidney Disease. COMPARISON: None. FINDINGS: ABDOMEN MIDLINE VASCULATURE: The visualized inferior vena cava is patent. Portal vein is patent. The maximum visualized aortic diameter is 1.9 cm. LIVER: Smooth liver contour. No focal lesions. The main portal vein measures 1.5 cm. BILIARY:Gallbladder: No gallstones or sludge. No gallbladder wall thickening, pericholecystic fluid, or distention. Negative sonographic Hernández sign.Common bile ductmeasures 0.4 cm, within normal limits. No intrahepatic biliary ductal dilatation. PANCREAS: Incompletely visualized due to overlying bowel gas. The partially visualized pancreatic head, neck, body, andtail are normal. SPLEEN: No splenomegaly. The spleen measures 9.2 cm. PERITONEUM: Trace perihepatic ascites. KIDNEYS: Normal in size bilaterally. Increased cortical echogenicity. No hydronephrosis. No s onographically evident solid mass lesion. Trace right pleural effusion PELVIS The distal abdominal aorta is patent and measures 1.4 cm. The common iliac arteries are patent and measure 0.9 cm on the right and 1 cm on the left.The external iliac arteries are patent and measure 0.6 cm on the right and 0.6 cm on the left.Neither internal iliac artery was confidently visualized. Normal velocities and waveforms in the distal aorta and bilateral common iliac arteries. The bilateral common and external iliac veins are patent. The right internal iliac vein is patent. The left internal iliac vein is not confidently visualized. IMPRESSION: 1.Medical renal disease without renal cysts. 2.Neither internal iliac artery nor the left internal iliac vein were confidently visualized. Otherwise, this is an unremarkable sonogram and Doppler evaluation of the iliac vessels bilaterally. 3.Trace right pleural effusionwith trace perihepatic ascites. Signed: Rio Dubon MDReport Verified Date/Time: 01/11/2021 13:05:03 [facility] [id number] 13:05:00Interface, External Ris In - 01/11/2021 1:07 PM CSTFINAL REPORT TECHNIQUE: Grayscale ultrasound of the abdomen. Grayscale, color Doppler, and spectral Doppler ultrasound of the distal aorta and bilateral iliac arteries. INDICATION: Kidney transplant evaluation; comment on number of renal cysts on each side to meet criteria for Acquired Cystic Kidney Disease. COMPARISON: None. FINDINGS: ABDOMEN MIDLINE VASCULATURE: The visualized inferior vena cava is patent. Portal vein is patent. The maximum visualized aortic diameter is 1.9 cm. LIVER: Smooth liver contour. No focal lesions. The main portal vein measures 1.5 cm. BILIARY:Gallbladder: No gallstones or sludge. No gallbladder wall thickening, pericholecystic fluid, or distention. Negative sonographic Hernández sign.Common bile ductmeasures 0.4 cm, within normal limits. No intrahepatic biliary ductal dilatation. PANCREAS: Incompletely visualized due to overlying bowel gas. The partially visualized pancreatic head, neck, body, andtail are normal. SPLEEN: No splenomegaly. The spleen measures 9.2 cm. PERITONEUM: Trace perihepatic ascites. KIDNEYS: Normal in size bilaterally. Increased cortical echogenicity. No hydronephrosis. No sonographically evident solid mass lesion. Trace right pleural effusion PELVIS The distal abdominal aorta is patent and measures 1.4 cm. The common iliac arteries are patent and measure 0.9 cm on the right and 1 cm on the left.The external iliac arteries are patent and measure 0.6 cm on the right and 0.6 cm on the left.Neither internal iliac artery was confidently visualized. Normal velocities and waveforms in the distal aorta and bilateral common iliac arteries. The bilateral common and external iliac veins are patent. The right internal iliac vein is patent. The left internal iliac vein is not confidently visualized. IMPRESSION: 1.Medical renal disease without renal cysts. 2.Neither internal iliac artery nor the left internal iliac vein were confidently visualized. Otherwise, this is an unremarkable sonogram and Doppler evaluation of the iliac vessels bilaterally. 3.Trace right pleural effusionwith trace perihepatic ascites. Signed: Rio Dubon MDReport Verified Date/Time: 01/11/2021 13:05:03 [facility] [id number] 13:05:00Interface, External Ris In - 01/11/2021 1:07 PM CSTFINAL REPORT TECHNIQUE: Grayscale ultrasound of the abdomen. Grayscale, color Doppler, and spectral Doppler ultrasound of the distal aorta and bilateral iliac arteries. INDICATION: Kidney transplant evaluation; comment on number of renal cysts on each side to meet criteria for Acquired Cystic Kidney Disease. COMPARISON: None. FINDINGS: ABDOMEN MIDLINE VASCULATURE: The visualized inferior vena cava is patent. Portal vein is patent. The maximum visualized aortic diameter is 1.9 cm. LIVER: Smooth liver contour. No focal lesions. The main portal vein measures 1.5 cm. BILIARY:Gallbladder: No gallstones or sludge. No gallbladder wall thickening, pericholecystic fluid, or distention. Negative sonographic Hernández sign.Common bile ductmeasures 0.4 cm, within normal limits. No intrahepatic biliary ductal dilatation. PANCREAS: Incompletely visualized due to overlying bowel gas. The partially visualized pancreatic head, neck, body, andtail are normal. SPLEEN: No splenomegaly. The spleen measures 9.2 cm. PERITONEUM: Trace perihepatic ascites. KIDNEYS: Normal in size bilaterally. Increased cortical echogenicity. No hydronephrosis. No sonographically evident solid mass lesion. Trace right pleural effusion PELVIS The distal abdominal ao rta is patent and measures 1.4 cm. The common iliac arteries are patent and measure 0.9 cm on the right and 1 cm on the left.The external iliac arteries are patent and measure 0.6 cm on the right and 0.6 cm on the left.Neither internal iliac artery was confidently visualized. Normal velocities and waveforms in the distal aorta and bilateral common iliac arteries. The bilateral common and external iliac veins are patent. The right internal iliac vein is patent. The left internal iliac vein is not confidently visualized. IMPRESSION: 1.Medical renal disease without renal cysts. 2.Neither internal iliac artery nor the left internal iliac vein were confidently visualized. Otherwise, this is an unremarka ble sonogram and Doppler evaluation of the iliac vessels bilaterally. 3.Trace right pleural effusionwith trace perihepatic ascites. Signed: Rio Dubon MDReport Verified Date/Time: 01/11/2021 13:05:03 [facility] with platelet count + automated [id number] 12:39:00 Test Item Value Reference Range Interpretation Comments WBC (test code = 6690-2) 5.1 See_Comment [A utomated message] The system [employer] generated this result transmitted ref erence range: 3.5 - 10 .5 K/L. The refe rence range was not u sed to interpret this result as normal/abnor mal. RBC (test code = 789-8) 3.22 See_Comment L [Au tomated message] The system [employer] generated this result transmitted ref erence range: 3.93 - 5 .22 M/L. The refe rence range was not u sed to interpret this result as normal/abnor mal. MCHC (test code = 786-4) 31.3 See_Comment L [A utomated message] The system [employer] generated this result transmitted ref erence range: 32.2 - 3 5.5 GM/DL. The refe rence range was not u sed to interpret this result as normal/abnor mal. Hematocrit (test code = 27.8 % 34.1-44.9 L 4544-3) MCV (test code = 787-2) 86.3 fL 79.4-94.8 MCH (test code = 785-6) 27.0 pg 25.6-32.2 RDW (test code = 788-0) 14.6 % 11.7-14.4 H Platelets (test code = 225 See_Comment [Aut omated message] 777-3) The system [employer] generated this result transmitted ref erence range: 150 - 45 0 K/CU MM. The referen ce range was not u sed to interpret this result as normal/abnor mal. MPV (test code = 10.2 fL 9.4-12.3 93262-5) nRBC (test code = 413) 0 See_Comment [Aut omated message] The system [employer] generated this result transmitted ref erence range: 0 - 0 /1 00 WBC. The refere nce range was not u sed to interpret this result as normal/abnor mal. % Neutros (test code = 56 % 429) % Lymphs (test code = 28 % 430) % Monos (test code = 8 % 431) % Eos (test code = 432) 7 % % Baso (test code = 437) 0 % # Neutros (test code = 2.81 See_Comment [Aut omated message] 670) The system [employer] generated this result transmitted ref erence range: 1.56 - 6 .13 K/L. The refe rence range was not u sed to interpret this result as normal/abnor mal. # Lymphs (test code = 1.41 See_Comment [Auto mated message] 414) The system [employer] generated this result transmitted ref erence range: 1.18 - 3 .74 K/L. The refe rence range was not u sed to interpret this result as normal/abnor mal. # Monos (test code = 0.38 See_Comment H [Autom ated message] 415) The system [employer] generated this result transmitted ref erence range: 0.24 - 0 .36 K/L. The refe rence range was not u sed to interpret this result as normal/abnor mal. # Eos (test code = 416) 0.35 See_Comment [Au tomated message] The system [employer] generated this result transmitted ref erence range: 0.04 - 0 .36 K/L. The refe rence range was not u sed to interpret this result as normal/abnor mal. # Baso (test code = 417) 0.02 See_Comment [A utomated message] The system [employer] generated this result transmitted ref erence range: 0.01 - 0 .08 K/L. The refe rence range was not u sed to interpret this result as normal/abnor mal. Immature 2 % 0-1 H Granulocytes-Relative (test code = 2801) Lab Interpretation (test Abnormal code = 18194-8) [facility] with platelet count + automated [id number] 12:39:00 Test Item Value Reference Range Interpretation Comments WBC (test code = 6690-2) 5.1 See_Comment [A utomated message] The system [employer] generated this result transmitted ref erence range: 3.5 - 10 .5 K/L. The refe rence range was not u sed to interpret this result as normal/abnor mal. RBC (test code = 789-8) 3.22 See_Comment L [Au tomated message] The system [employer] generated this result transmitted ref erence range: 3.93 - 5 .22 M/L. The refe rence range was not u sed to interpret this result as normal/abnor mal. MCHC (test code = 786-4) 31.3 See_Comment L [A utomated message] The system [employer] generated this result transmitted ref erence range: 32.2 - 3 5.5 GM/DL. The refe rence range was not u sed to interpret this result as normal/abnor mal. Hematocrit (test code = 27.8 % 34.1-44.9 L 4544-3) MCV (test code = 787-2) 86.3 fL 79.4-94.8 MCH (test code = 785-6) 27.0 pg 25.6-32.2 RDW (test code = 788-0) 14.6 % 11.7-14.4 H Platelets (test code = 225 See_Comment [Aut omated message] 777-3) The system [employer] generated this result transmitted ref erence range: 150 - 45 0 K/CU MM. The referen ce range was not u sed to interpret this result as normal/abnor mal. MPV (test code = 10.2 fL 9.4-12.3 64388-8) nRBC (test code = 413) 0 See_Comment [Aut omated message] The system [employer] generated this result transmitted ref erence range: 0 - 0 /1 00 WBC. The refere nce range was not u sed to interpret this result as normal/abnor mal. % Neutros (test code = 56 % 429) % Lymphs (test code = 28 % 430) % Monos (test code = 8 % 431) % Eos (test code = 432) 7 % % Baso (test code = 437) 0 % # Neutros (test code = 2.81 See_Comment [Aut omated message] 670) The system [employer] generated this result transmitted ref erence range: 1.56 - 6 .13 K/L. The refe rence range was not u sed to interpret this result as normal/abnor mal. # Lymphs (test code = 1.41 See_Comment [Auto mated message] 414) The system [employer] generated this result transmitted ref erence range: 1.18 - 3 .74 K/L. The refe rence range was not u sed to interpret this result as normal/abnor mal. # Monos (test code = 0.38 See_Comment H [Autom ated message] 415) The system [employer] generated this result transmitted ref erence range: 0.24 - 0 .36 K/L. The refe rence range was not u sed to interpret this result as normal/abnor mal. # Eos (test code = 416) 0.35 See_Comment [Au tomated message] The system [employer] generated this result transmitted ref erence range: 0.04 - 0 .36 K/L. The refe rence range was not u sed to interpret this result as normal/abnor mal. # Baso (test code = 417) 0.02 See_Comment [A utomated message] The system [employer] generated this result transmitted ref erence range: 0.01 - 0 .08 K/L. The refe rence range was not u sed to interpret this result as normal/abnor mal. Immature 2 % 0-1 H Granulocytes-Relative (test code = 2801) Lab Interpretation (test Abnormal code = 85811-7) [facility] with platelet count + automated [id number] 12:39:00 Test Item Value Reference Range Interpretation Comments WBC (test code = 6690-2) 5.1 See_Comment [A utomated message] The system [employer] generated this result transmitted ref erence range: 3.5 - 10 .5 K/L. The refe rence range was not u sed to interpret this result as normal/abnor mal. RBC (test code = 789-8) 3.22 See_Comment L [Au tomated message] The system [employer] generated this result transmitted ref erence range: 3.93 - 5 .22 M/L. The refe rence range was not u sed to interpret this result as normal/abnor mal. MCHC (test code = 786-4) 31.3 See_Comment L [A utomated message] The system [employer] generated this result transmitted ref erence range: 32.2 - 3 5.5 GM/DL. The refe rence range was not u sed to interpret this result as normal/abnor mal. Hematocrit (test code = 27.8 % 34.1-44.9 L 4544-3) MCV (test code = 787-2) 86.3 fL 79.4-94.8 MCH (test code = 785-6) 27.0 pg 25.6-32.2 RDW (test code = 788-0) 14.6 % 11.7-14.4 H Platelets (test code = 225 See_Comment [Aut omated message] 777-3) The system [employer] generated this result transmitted ref erence range: 150 - 45 0 K/CU MM. The referen ce range was not u sed to interpret this result as normal/abnor mal. MPV (test code = 10.2 fL 9.4-12.3 37220-1) nRBC (test code = 413) 0 See_Comment [Aut omated message] The system [employer] generated this result transmitted ref erence range: 0 - 0 /1 00 WBC. The refere nce range was not u sed to interpret this result as normal/abnor mal. % Neutros (test code = 56 % 429) % Lymphs (test code = 28 % 430) % Monos (test code = 8 % 431) % Eos (test code = 432) 7 % % Baso (test code = 437) 0 % # Neutros (test code = 2.81 See_Comment [Aut omated message] 670) The system [employer] generated this result transmitted ref erence range: 1.56 - 6 .13 K/L. The refe rence range was not u sed to interpret this result as normal/abnor mal. # Lymphs (test code = 1.41 See_Comment [Auto mated message] 414) The system [employer] generated this result transmitted ref erence range: 1.18 - 3 .74 K/L. The refe rence range was not u sed to interpret this result as normal/abnor mal. # Monos (test code = 0.38 See_Comment H [Autom ated message] 415) The system [employer] generated this result transmitted ref erence range: 0.24 - 0 .36 K/L. The refe rence range was not u sed to interpret this result as normal/abnor mal. # Eos (test code = 416) 0.35 See_Comment [Au tomated message] The system [employer] generated this result transmitted ref erence range: 0.04 - 0 .36 K/L. The refe rence range was not u sed to interpret this result as normal/abnor mal. # Baso (test code = 417) 0.02 See_Comment [A utomated message] The system [employer] generated this result transmitted ref erence range: 0.01 - 0 .08 K/L. The refe rence range was not u sed to interpret this result as normal/abnor mal. Immature 2 % 0-1 H Granulocytes-Relative (test code = 2801) Lab Interpretation (test Abnormal code = 48087-4) [facility] with platelet count + automated qhbt0847-30-71 12:39:00 Test Item Value Reference Range Interpretation Comments WBC (test code = 6690-2) 5.1 See_Comment [A utomated message] The system [employer] generated this result transmitted ref erence range: 3.5 - 10 .5 K/L. The refe rence range was not u sed to interpret this result as normal/abnor mal. RBC (test code = 789-8) 3.22 See_Comment L [Au tomated message] The system [employer] generated this result transmitted ref erence range: 3.93 - 5 .22 M/L. The refe rence range was not u sed to interpret this result as normal/abnor mal. MCHC (test code = 786-4) 31.3 See_Comment L [A utomated message] The system [employer] generated this result transmitted ref erence range: 32.2 - 3 5.5 GM/DL. The refe rence range was not u sed to interpret this result as normal/abnor mal. Hematocrit (test code = 27.8 % 34.1-44.9 L 4544-3) MCV (test code = 787-2) 86.3 fL 79.4-94.8 MCH (test code = 785-6) 27.0 pg 25.6-32.2 RDW (test code = 788-0) 14.6 % 11.7-14.4 H Platelets (test code = 225 See_Comment [Aut omated message] 647-3) The system [employer] generated this result transmitted ref erence range: 150 - 45 0 K/CU MM. The referen ce range was not u sed to interpret this result as normal/abnor mal. MPV (test code = 10.2 fL 9.4-12.3 25366-5) nRBC (test code = 413) 0 See_Comment [Aut omated message] The system [employer] generated this result transmitted ref erence range: 0 - 0 /1 00 WBC. The refere nce range was not u sed to interpret this result as normal/abnor mal. % Neutros (test code = 56 % 429) % Lymphs (test code = 28 % 430) % Monos (test code = 8 % 431) % Eos (test code = 432) 7 % % Baso (test code = 437) 0 % # Neutros (test code = 2.81 See_Comment [Aut omated message] 670) The system [employer] generated this result transmitted ref erence range: 1.56 - 6 .13 K/L. The refe rence range was not u sed to interpret this result as normal/abnor mal. # Lymphs (test code = 1.41 See_Comment [Auto mated message] 414) The system [employer] generated this result transmitted ref erence range: 1.18 - 3 .74 K/L. The refe rence range was not u sed to interpret this result as normal/abnor mal. # Monos (test code = 0.38 See_Comment H [Autom ated message] 415) The system [employer] generated this result transmitted ref erence range: 0.24 - 0 .36 K/L. The refe rence range was not u sed to interpret this result as normal/abnor mal. # Eos (test code = 416) 0.35 See_Comment [Au tomated message] The system [employer] generated this result transmitted ref erence range: 0.04 - 0 .36 K/L. The refe rence range was not u sed to interpret this result as normal/abnor mal. # Baso (test code = 417) 0.02 See_Comment [A utomated message] The system [employer] generated this result transmitted ref erence range: 0.01 - 0 .08 K/L. The refe rence range was not u sed to interpret this result as normal/abnor mal. Immature 2 % 0-1 H Granulocytes-Relative (test code = 2801) Lab Interpretation (test Abnormal code = 31574-9) [facility] W/PLT COUNT & AUTO MSFMTLGNTNDB5187-53-97 12:39:00 Test Item Value Reference Range Interpretation Comments WHITE BLOOD CELL COUNT (BEAKER) 5.1 K/ L 3.5-10.5 (test code = 775) RED BLOOD CELL COUNT (BEAKER) 3.22 M/ L 3.93-5.22 L (test code = 761) HEMOGLOBIN (BEAKER) (test code = 8.7 GM/DL 11.2-15.7 L 410) HEMATOCRIT (BEAKER) (test code = 27.8 % 34.1-44.9 L 411) MEAN CORPUSCULAR VOLUME (BEAKER) 86.3 fL 79.4-94.8 (test code = 753) MEAN CORPUSCULAR HEMOGLOBIN 27.0 pg 25.6-32.2 (BEAKER) (test code = 751) MEAN CORPUSCULAR HEMOGLOBIN CONC 31.3 GM/DL 32.2-35.5 L (BEAKER) (test code = 752) RED CELL DISTRIBUTION WIDTH 14.6 % 11.7-14.4 H (BEAKER) (test code = 412) PLATELET COUNT (BEAKER) (test 225 K/CU MM 150-450 code = 756) MEAN PLATELET VOLUME (BEAKER) 10.2 fL 9.4-12.3 (test code = 754) NUCLEATED RED BLOOD CELLS 0 /100 WBC 0-0 (BEAKER) (test code = 413) NEUTROPHILS RELATIVE PERCENT 56 % (BEAKER) (test code = 429) LYMPHOCYTES RELATIVE PERCENT 28 % (BEAKER) (test code = 430) MONOCYTES RELATIVE PERCENT 8 % (BEAKER) (test code = 431) EOSINOPHILS RELATIVE PERCENT 7 % (BEAKER) (test code = 432) BASOPHILS RELATIVE PERCENT 0 % (BEAKER) (test code = 437) NEUTROPHILS ABSOLUTE COUNT 2.81 K/ L 1.56-6.13 (BEAKER) (test code = 670) LYMPHOCYTES ABSOLUTE COUNT 1.41 K/ L 1.18-3.74 (BEAKER) (test code = 414) MONOCYTES ABSOLUTE COUNT (BEAKER) 0.38 K/ L 0.24-0.36 H (test code = 415) EOSINOPHILS ABSOLUTE COUNT 0.35 K/ L 0.04-0.36 (BEAKER) (test code = 416) BASOPHILS ABSOLUTE COUNT (BEAKER) 0.02 K/ L 0.01-0.08 (test code = 417) IMMATURE GRANULOCYTES-RELATIVE 2 % 0-1 H PERCENT (BEAKER) (test code = 2801) CARDIAC PISAOUW6288-44-83 06:50:33<0.02[facility] 2020-[facility]-20 06:50:33<1[facility]annCARD[facility]AC YBSYZYM6099-99-37 06:50:33 <0.02[facility] DypmdtrDCJOLNFDLPNPO4191-21-36 06:50:33<1[facility] CARDIAC OQWPUUD4491-33-75 02:21:01<0.02[facility]annCHEM BOLWW2797-16-12 02:21:0186[facility]annCHEM WLNKI1699-83-65 02:21:0171[facility]annCHE[facility] CTAAY1114-47-74 02:21:0113.00[facility]annCHE[facility] ZPEJL0366-20-85 02:21:20954 [facility]CHE[facility] VDEUX8721-50-80 02:21:015.1[facility]annCHEM PANEL 2020-11-20 02:21:97413Qwrcwlxx [facility]annCHEM QTBUS4398-57-63 02:21:0121[facility]annCHE[facility] NVIAN2975-99-87 02:21:018.5[facility]annCHEM MKCEZ1957-68-25 02:21:0117.[facility]annCHEM ECOYH5653-12-16 02:21:013[facility]annCHEM STCYY4091-83-07 02:21:012.1[facility]annCHEM TUABV2770-95-37 02:21:017.7 [facility] JqopczbERIFAIWJCV5937-18-60 02:21:014.7[facility]annHEMATOLOGY 2020-11-20 02:21:014.76[facility] HtxzfpvWVJXJRSGGI6819-09-56 02:21:0113.3[facility] FadzrogFQTGALASEK7616-01-02 02:21:0141.2[facility] IzpakllSQWHMRELIP9627-20-48 02:21:0186.6[facility] XdpbgzxCEZUYYIICN7908-81-98 02:21:01 Test Item Value Reference Range Interpretation Comments MCH (test code = MCH) 27.9 pg 27.0-31.0 [facility] KbsulhuEBPDFQRNQK2029-66-12 02:21:0132.2[facility]annHEMATOLOGY 2020-11-20 02:21:0114.0[facility] JnusecjVOWOKKAVJI6248-53-13 02:21:91219Aiiglext QytcksnSGGMEXSHMD8568-50-08 02:21:018.6[facility] CfldwwkDHNZCSRFUZ8949-54-08 02:21:0149.4[facility] RpnqrgwCQTWGUCIUL7338-16-76 02:21:0133.5[facility] XZKQFCNZQJ2013-24-39 02:21:0112.8[facility] YqxynehLMHSXDDJSC9072-61-64 02:21:01 2.9[facility] RvnmjfcAGRCWTQLOA5899-80-21 02:21:011.4[facility]annHEMATOLOGY 2020-11-20 02:21:012.3[facility] WnqxsvwFPNPIEQLEV6508-24-62 02:21:011.6[facility] WahfwbrFCEPYSZLWM7412-71-14 02:21:010.6[facility] OepqkvoZIPIDLIIBE9189-50-30 02:21:010.1[facility] PqubexgFLXWVVHXEZ2763-93-46 02:21:010.1[facility] CARDIAC AQVQCBZ6867-51-06 02:21:01<0.02[facility]annCHEM SRFCE6974-97-81 02:21:0186[facility]annCHEM ALELI9353-29-23 02:21:0171[facility]annCHE[facility] XHUVM0432-20-61 02:21:0113.00[facility]annCHEM MUKQR1598-60-87 02:21:39660 [facility]CHE[facility] FJSMP9860-35-75 02:21:015.1[facility]annCHEM PANEL 2020-11-20 02:21:31482Quthnftn [facility]annCHE[facility] IUKHC9983-21-60 02:21:0121[facility]annCHE[facility] RRLJC5351-64-75 02:21:018.5[facility]annCHE[facility] VITIV2818-30-71 02:21:0117.1[facility]annCHEM BEMEP0846-93-78 02:21:013[facility]annCHE[facility] HVITJ0779-94-00 02:21:012.1[facility]annCHEM RIALX0983-28-21 02:21:017.7 [facility] XjunayyTDDCNDVBFR5371-91-16 02:21:014.7[facility]annHEMATOLOGY 2020-11-20 02:21:014.76[facility] YzivsirLJNHYDGYGP2621-19-51 02:21:0113.3[facility] OcohrcvMHARLPDKXO8710-64-57 02:21:0141.2[facility] GnjzgjzYVEEBWDEOD3912-35-08 02:21:0186.6[facility] FqjsprfZAHHMCSPUH1678-34-72 02:21:01 Test Item Value Reference Range Interpretation Comments MCH (test code = MCH) 27.9 pg 27.0-31.0 [facility] GnqszndYURLZOYOFA7042-22-75 02:21:0132.2[facility]annHEMATOLOGY 2020-11-20 02:21:0114.0[facility] DnseivbGSNEXHGELZ3432-36-85 02:21:88443Zkmyzglw EwovsfkJWZFCHAPLP5294-97-35 02:21:018.[facility]orial HqdknylTIPJANCHCB9894-14-27 02:21:0149.4[facility] MltjhjvTYLXQXKQYH7633-21-27 02:21:0133.5[facility] WQFARZAYXX3507-15-92 02:21:0112.8[facility] NyicdegERLANJFXFF2920-65-22 02:21:01 2.9[facility] MctxdyvXFLGARLFIN2502-55-93 02:21:011.4[facility]annHEMATOLOGY 2020-11-20 02:21:012.3[facility] ZzjtsdrKDAZWNOULB0296-02-40 02:21:011.6[facility] KxooiosFGSUPFHGCZ8647-28-53 02:21:010.6[facility] TubhrfjLYIXACBALE7844-60-54 02:21:010.1[facility] LeetnhaNJNCALJZHA3951-31-05 02:21:010.1[facility] Dgmemn7832-19-10 14:45:04Kaye Barbour CRNA 08/22/2020 9:45 AMAirwayPerformed by: Kaye Barbour CRNAAuthorized by: Ele Dsouza MD Location: ORUrgency: ElectiveDifficult Airway: No Resident/DISTILLERY WORKER/AA: Kaye Barbour C RNAPerformed by: resident/CRNAPreoxygenated with 100% O2: Yes C-spine Precautions Maintained Throughout: Yes Mask Ventilation: Easy maskFinal Airway Type: Endotracheal airwayFinal Endotracheal Airway: ETTCuffed: Yes Technique Used: Direct laryngoscopyDevices/Methods Used in Placement: Intubating stylet Insertion Site: OralBlade Type: MillerLaryngoscope Blade/Videolaryngoscope Blade Size: 2ETT Size (mm): 7.0Cuff at minimum occlusion pressure: Yes Measured from: LipsETT to Lips (cm): 21Placement Verified by: CO2 detection, direct visualization and equal breath sounds Laryngoscopic view: Grade I - fullview of glottisRapid Sequence Induction (RSI): No Modified RSI: No Number of Attempts at Approach: 1Smooth atraumatic intubation with ETT through visible cords, dentition and mucous membranes remain intactSh[facility] SouthCARDIAC ENZYMES 2020-08-05 04:11:00<0.02[facility]annCHEM XEAEV6800-01-24 04:11:81509 [facility] HermannCHEM CDJNK5911-36-37 04:11:0023[facility]annCHEM PANEL 2020-08-05 04:11:004.62[facility]annCHEM HUGQS4261-67-12 04:11:09065Okhlnhlr HermannCHEM SJCGT9675-08-73 04:11:004.0[facility]annCHEM FULPI4526-92-86 04:11:0098[facility]annCHEM OKOBF0554-51-55 04:11:0035[facility]annCHEM MTNQX3606-47-48 04:11:008.6[facility]annCHEM MIRRH5480-58-67 04:11:008.5 [facility]annCHE[facility] JPTEQ8425-87-04 04:11:003.1[facility]annCHEM PANEL 2020-08-05 04:11:0021[facility]annCHEM KAZNR0583-26-48 04:11:0038[facility]annCHEM OZGQN9947-99-18 04:11:0097[facility]annCHEM SZHXZ8129-47-02 04:11:000.3[facility]annCHEM EECBL2419-57-54 04:11:007.0[facility]annCHEM XRVNX5314-53-30 04:11:00 Test Item Value Reference Range Interpretation Comments B/C Ratio (test code = B/C Ratio) 5 1 - [facility]annCHEM GUPTZ0508-57-30 04:11:005.4[facility]annCHEM PANEL 2020-08-05 04:11:00 Test Item Value Reference Range Interpretation Comments A/G Ratio (test code = A/G Ratio) 0.6 1 0.7-1.6 [facility]annCHEM KERON8048-42-76 04:11:0012[facility]annENDOCRINOLOGY 2020-08-05 04:11:00Negative *NA*(08/04/20 11:11 PM)[facility]annHEMATOLOGY 2020-08-05 04:11:005.2[facility] AhdnlwxVFVECIFJDP6298-97-20 04:11:004.42[facility] EnmgaruWHGVUBWGYJ9238-18-67 04:11:0011.9[facility] DmodojgFUVWAHYDYN8143-12-56 04:11:0036.4[facility] KdkpzsiMVFGPSYQUY7384-36-13 04:11:0082.4[facility] NIVWFMVAXK6617-57-09 04:11:00 Test Item Value Reference Range Interpretation Comments MCH (test code = MCH) 27.0 pg 27.0-31.0 [facility] AcnwgjxCVITUVOBZM9973-74-00 04:11:0032.8[facility]annHEMATOLOGY 2020-08-05 04:11:0017.7[facility] MrbmckiRWMWKXMBJG3153-80-88 04:11:03762Ydhpqbtt QetjobeJUMWUESOBT2770-48-22 04:11:007.8[facility] SxojeleBMCQOLXZDC1546-45-50 04:11:003.1[facility] XjtfyvnKIPWSVBAPP1230-10-37 04:11:001.6[facility] LESWRIGTZL1774-82-83 04:11:000.5[facility] DsdcgsrKKSDGJIZNN7231-28-39 04:11:000.1 [facility] AdrvufvSMJEEZCNNQ2582-73-82 04:11:0059.0[facility]annHEMATOLOGY 2020-08-05 04:11:000.0[facility] LuhonkyKCWFLMOFBG5267-49-44 04:11:0030.0[facility] EgpgoawYJFBRTEKZK6979-23-51 04:11:0010.0[facility] CinijizFJJTBOOFYF7601-23-79 04:11:001.0[facility] MyognmyMMUQFHYGKI2073-93-80 04:11:000.0[facility] GFHUURVKLL5618-76-65 04:11:00Normal (08/04/20 11:11 PM)[facility]annHEMATOLOGY 2020-08-05 04:11:001+ *ABN*(08/04/20 11:11 PM)[facility]annCARDIAC ENZYMES 2020-08-05 04:11:00<0.02[facility]annCHEM YZPEY6324-55-90 04:11:46473 [facility]annCHEM YFICB4727-92-41 04:11:0023[facility]annCHEM PANEL 2020-08-05 04:11:004.62[facility]annCHEM FWUNN8859-27-18 04:11:94358Zrgdkxfp [facility]CHE[facility] UNPRJ8749-69-36 04:11:004.0[facility]annCHEM BBIUA5774-36-23 04:11:0098[facility]annCHEM ZWBGR7888-24-15 04:11:0035[facility]annCHEM CLOCB7915-49-24 04:11:008.6[facility]annCHEM TIPFP3850-94-28 04:11:008.5 [facility]annCHE[facility] SDZGM7198-61-23 04:11:003.1[facility]annCHEM PANEL 2020-08-05 04:11:0021[facility]annCHEM JWKWR9250-04-17 04:11:0038[facility]annCHEM LTDWG2786-62-05 04:11:0097[facility]annCHEM UVSXB4219-91-18 04:11:000.3[facility]annCHEM YNQEA4986-25-06 04:11:007.0[facility]annCHEM TVNRC1820-97-77 04:11:00 Test Item Value Reference Range Interpretation Comments B/C Ratio (test code = B/C Ratio) 5 1 6-25 [facility]annCHE[facility] TPPWU3668-11-35 04:11:005.4[facility]annCHEM PANEL 2020-08-05 04:11:00 Test Item Value Reference Range Interpretation Comments A/G Ratio (test code = A/G Ratio) 0.6 1 0.7-1.6 [facility]CHE[facility] YCNNO3724-92-10 04:11:0012[facility]annENDOCRINOLOGY 2020-08-05 04:11:00Negative *NA*(08/04/20 11:11 PM)[facility]annHEMATOLOGY 2020-08-05 04:11:005.2[facility] KfuypkvZBULNWWKRE6516-07-73 04:11:004.42[facility] EaaqohbZDNOFIDWAS4633-95-23 04:11:0011.9[facility] JnfjvyvQMZGLHUUBK5962-69-27 04:11:0036.4[facility] MamisnpYEHBVENMGS2354-71-43 04:11:0082.4[facility] JAFLSQOVOZ8129-68-15 04:11:00 Test Item Value Reference Range Interpretation Comments MCH (test code = MCH) 27.0 pg 27.0-31.0 [facility] QxcichnTRNOIXTZDM1969-26-54 04:11:0032.8[facility]annHEMATOLOGY 2020-08-05 04:11:0017.7[facility] RcnzowzCQNITSLBEA8118-40-26 04:11:51619Qtijmlzw PjnvfsmDSNGUTQOXN5285-18-44 04:11:007.8[facility] CcprpumSBNUATAJST6136-15-79 04:11:003.1[facility] LacilgnQHFXRWXJVO7502-98-60 04:11:001.6[facility] SBTIPRUAHB2713-00-19 04:11:000.5[facility] AackskpCQEEZJAORX2801-22-40 04:11:000.1 [facility] IuobcsgKOWUVWFLGL1533-85-87 04:11:0059.0[facility]annHEMATOLOGY 2020-08-05 04:11:000.0[facility] OcftscbQVVHANIRCX2900-36-17 04:11:0030.0[facility] NcohgicFRSHMMNITU5623-13-69 04:11:0010.0[facility] HjxuulhZKCYEZWXDK9904-21-31 04:11:001.0[facility] MuripkoZKHOBITUXS8362-94-37 04:11:000.0[facility] AUTWXKOLYB9630-31-51 04:11:00Normal (08/04/20 11:11 PM)[facility]annHEMATOLOGY 2020-08-05 04:11:001+ *ABN*(08/04/20 11:11 PM)[facility]annCARDIAC ENZYMES 2020-07-23 20:14:00<0.02[facility]annCHEM OKKZK6072-27-12 20:14:0099 [facility]annCHE[facility] SUYZJ1161-74-18 20:14:0058[facility]annCHEM PANEL 2020-07-23 20:14:007.58[facility]annCHEM NQWGC6461-16-23 20:14:75818Tlofzpqt [facility]CHE[facility] KFBTD5323-18-29 20:14:003.7[facility]annCHEM JHYVU3382-75-45 20:14:52033Dxzpwujr [facility]CHE[facility] XQSVU7030-45-55 20:14:0028[facility]annCHEM NXMIV5160-18-94 20:14:008.7[facility]annCHEM BGXLM0470-17-88 20:14:007.8 [facility]annCHEM KIZZQ1076-62-47 20:14:002.9[facility]annCHEM PANEL 2020-07-23 20:14:0022[facility]annCHEM LLLME5261-56-17 20:14:0022[facility]annCHEM HAJXR8795-81-64 20:14:0095[facility]annCHEM JLUIT5365-11-35 20:14:000.3[facility]annCHEM RXMMX1337-33-18 20:14:0011.7[facility]annCHEM BXJLQ5529-30-29 20:14:00 Test Item Value Reference Range Interpretation Comments B/C Ratio (test code = B/C Ratio) 8 1 6-25 [facility]annCHE[facility] OMKNA0748-11-79 20:14:004.9[facility]annCHEM PANEL 2020-07-23 20:14:00 Test Item Value Reference Range Interpretation Comments A/G Ratio (test code = A/G Ratio) 0.6 1 0.7-1.6 [facility]annCHE[facility] ORPLJ0063-33-00 20:14:007[facility]annENDOCRINOLOGY 2020-07-23 20:14:00Negative *NA*(07/23/20 3:14 PM)[facility]annHEMATOLOGY 2020-07-23 20:14:005.6[facility] QkuedaiKHLGGNTAHM1167-26-63 20:14:004.54[facility] QuhvawpJSJPYLCLEZ0838-18-47 20:14:0012.1[facility] VzepdniJUTAEFNAKD1433-29-32 20:14:0037.6[facility] PgqgnfeKTHUYPAJWW1050-45-37 20:14:0082.8[facility] CVCPGQATRX0850-09-22 20:14:00 Test Item Value Reference Range Interpretation Comments MCH (test code = MCH) 26.7 pg 27.0-31.0 [facility] IstutskJQZMIFABAW4072-69-01 20:14:0032.3[facility]annHEMATOLOGY 2020-07-23 20:14:0017.7[facility] QmeuakvQUBUWKYMCE3488-20-17 20:14:24668Mpzrqifi WrmvgwgDPMXFCCCAS1752-45-48 20:14:008.3[facility] CmcpitoWSXVOTJGHY3900-59-94 20:14:0051.9[facility] FlodvhbZOXFGHFZUI0726-18-99 20:14:0030.0[facility] XZNDJBHCXL8645-55-48 20:14:0015.6[facility] AvyvlwsODEEKMXVGT3625-22-09 20:14:00 1.4[facility] LriosetKYZWZBKOJH4398-79-61 20:14:001.1[facility]annHEMATOLOGY 2020-07-23 20:14:002.9[facility] TtstokbOZDFHKXAYT9187-60-38 20:14:001.7[facility] PcqgyreDFJXYQGUQD0887-44-13 20:14:000.9[facility] HhfbcigIRSFLEHWTZ9647-46-12 20:14:000.1[facility] DbviexcAYNKGGMTHT3956-21-15 20:14:000.1[facility] CARDIAC HIJFLMY5415-99-49 20:14:00<0.02[facility]annCHEM GSHAQ0900-72-68 20:14:0099[facility]annCHEM KQNEK1705-97-11 20:14:0058[facility]annCHE[facility] SBQSR4436-18-55 20:14:007.58[facility]annCHEM SMHTJ7016-61-36 20:14:88846 [facility]CHE[facility] YXHKX2283-50-70 20:14:003.7[facility]annCHEM PANEL 2020-07-23 20:14:43414Ljrpbupq HermannCHEM TKUWL0168-23-26 20:14:0028[facility]annCHE[facility] SDLUD0938-96-95 20:14:008.7[facility] FDIVW7598-85-60 20:14:007.8[facility]CHE[facility] CZMGP6502-09-21 20:14:002.9[facility]CHE[facility] YHZHY5218-01-50 20:14:0022[facility]CHE[facility] KXGNP7889-57-48 20:14:0022 [facility] OUURW1055-44-13 20:14:0095[facility]annCHE[facility] PANEL 2020-07-23 20:14:000.3[facility]CHE[facility] AWWZH2240-00-06 20:14:0011.7[facility]CHE[facility] JTPOB8933-58-96 20:14:00 Test Item Value Reference Range Interpretation Comments B/C Ratio (test code = B/C Ratio) 8 1 6-25 [facility] JDPQB2855-28-34 20:14:004.9[facility]annCHE[facility] PANEL 2020-07-23 20:14:00 Test Item Value Reference Range Interpretation Comments A/G Ratio (test code = A/G Ratio) 0.6 1 0.7-1.6 [facility] RXKGB9803-77-01 20:14:007[facility]annENDOCRINOLOGY 2020-07-23 20:14:00Negative *NA*(07/23/20 3:14 PM)[facility]annHEMATOLOGY 2020-07-23 20:14:005.6[facility] PqwucvkCEAQEPJHKO2395-10-57 20:14:004.54[facility] PjighemXNRYBKWEZG4170-92-99 20:14:0012.1[facility] PfdmdkqOMSUABDNEY4796-88-03 20:14:0037.[facility] UosrhjjKCWBQYZBNZ9303-10-78 20:14:0082.8[facility] BKDTOFQOEI1681-45-08 20:14:00 Test Item Value Reference Range Interpretation Comments MCH (test code = MCH) 26.7 pg 27.0-31.0 [facility] UmhmmbmXEJBRNXDFF2475-16-38 20:14:0032.3[facility]annHEMATOLOGY 2020-07-23 20:14:0017.7[facility] IskgrtuLCYLESTFYX1624-15-89 20:14:61020Rslprslx MtcbhscOMIVGBFJFA5666-94-02 20:14:008.3[facility] WnurmxeATMTXFZIQF2068-47-32 20:14:0051.9[facility] IfruvlgLSNYDFIQVS5090-15-80 20:14:0030.0[facility] JJGRUQLIUL9660-50-90 20:14:0015.[facility]orial QsfqyxuDVFAAROAJS1835-36-04 20:14:00 1.4[facility] RjprwkbIIRYCPUWZA1238-79-55 20:14:001.1[facility]annHEMATOLOGY 2020-07-23 20:14:002.9[facility] KonunggNYUIBHEELF9213-94-04 20:14:001.7[facility] SkeogexESHUCUTQVF9703-36-90 20:14:000.9[facility] JqxfgxnPTXNGNFWZS3694-83-56 20:14:000.1[facility] NtvzqprLTOXZJMHNV6903-00-64 20:14:000.1[facility]annCHEM AOPPJ9478-56-53 08:06:66100Fmlxdvkw HermannCHEM QPRMR1388-07-60 08:06:0043 [facility]CHE[facility] RHCLO9150-61-24 08:06:005.05[facility]annCHEM PANEL 2020-05-30 08:06:56877Mtjpcikg HermannCHEM EIHDS6064-69-77 08:06:003.1[facility]annCHE[facility] SLMZY7070-15-89 08:06:30435Npfflsph HermannCHEM ISNCE3148-83-14 08:06:0030[facility]CHE[facility] BIHKP5537-24-22 08:06:008.1[facility]CHE[facility] MFMYW2475-81-38 08:06:0011.1[facility]annCHE[facility] LPNOL5023-26-33 08:06:0013 [facility] LbpeheqRFGDNTXGHJ9380-00-26 08:06:0056.1[facility]annHEMATOLOGY 2020-05-30 08:06:0029.7[facility] UidxjnoZKTPXSKVUP5535-87-37 08:06:0012.8[facility] UxzfcspWSRANGAZYB7417-24-30 08:06:000.6[facility] XelolfqYKIQMEUCFN5698-79-87 08:06:000.8[facility] TnavledLHPDPWSJSC7174-47-81 08:06:003.5[facility] TJPTKSWJOE0392-78-18 08:06:001.9[facility] CllcjdlHKZFEFSNBY3663-03-90 08:06:000.8 [facility] UelhmxuZTRJKKGNXX0728-75-03 08:06:000.1[facility]annHEMATOLOGY 2020-05-30 08:06:006.3[facility] VjcqosoTRJORZGQOS0063-21-36 08:06:004.81[facility] KjvrxewXARFCEDZVA2878-13-90 08:06:0013.2[facility] AcrdtaxSERRRWJALL9328-05-73 08:06:0041.8[facility] GrwqjwiKXXQHRMHWT3983-32-13 08:06:0086.9[facility] WWNHYNQGXA3797-27-01 08:06:00 Test Item Value Reference Range Interpretation Comments MCH (test code = MCH) 27.5 pg 27.0-31.0 [facility] ZsduuaoQQLPRXTCAJ9435-91-14 08:06:0031.6[facility]annHEMATOLOGY 2020-05-30 08:06:0016.8[facility] NiwjvduXMFXSRMJBT6760-08-49 08:06:82662Uafjmtir EvwhrftFDRNGUVCGT7178-30-39 08:06:008.1[facility]annCHEM IZHAX0999-85-00 08:06:67160Buqruvte HermannCHEM MTLVU5164-65-81 08:06:0043[facility]annCHE[facility] LNIHF9372-29-53 08:06:005.05[facility]annCHEM DFTND7223-53-77 08:06:18579 [facility]CHE[facility] LUZSY3511-63-10 08:06:003.1[facility]annCHEM PANEL 2020-05-30 08:06:08095Gmxtvrxl HermannCHEM NKNTH4431-47-92 08:06:0030[facility] HermannCHEM MHKWX4758-02-75 08:06:008.1[facility]annCHEM SJATX0180-77-33 08:06:0011.1[facility] HermannCHEM QBFAK8391-09-50 08:06:0013[facility] DXYWSAUPIQ4708-54-27 08:06:0056.1[facility] LtsamvkXTSYRUKBQA7744-23-30 08:06:00 29.7[facility] FxhmmcaJGEMORVLLG9423-94-73 08:06:0012.8[facility] HermannHEMATOLOGY 2020-05-30 08:06:000.6[facility] FjoqkfpFNXLGRPPUJ5995-00-73 08:06:000.8[facility] BblmkyqETTZSRLNTD3263-77-56 08:06:003.5[facility] ZpnwwmnDRMDQBYXQB8282-04-98 08:06:001.9[facility] FonhdclTFTPERPLIW4678-01-24 08:06:000.8[facility] YJFZCKBCCG3663-64-90 08:06:000.1[facility] FdixurhMDYXWWHKEY6357-48-23 08:06:006.3 [facility] NaqeodoITRRFXZAKZ8792-47-94 08:06:004.81[facility] HermannHEMATOLOGY 2020-05-30 08:06:0013.2[facility] HaomhhiYCXDMACLQJ4224-10-37 08:06:0041.8[facility] PdqiblpXTXITQEVDK3858-18-96 08:06:0086.9[facility] EotishzFPIMQQXKOI6846-77-58 08:06:00 Test Item Value Reference Range Interpretation Comments MCH (test code = MCH) 27.5 pg 27.0-31.0 [facility] OulbitbRESBYKQAAO1415-55-92 08:06:0031.6[facility] HermannHEMATOLOGY 2020-05-30 08:06:0016.8[facility] CwpuctoWTDOPTPRWY3195-40-36 08:06:59889Qlsncpse WycnkyzIZVNHBYYIM3495-54-86 08:06:008.1[facility] WkhvxoqBTQWASVIGH8343-13-48 04:35:00Not Detected (05/29/20 11:35 PM)[facility] KsjffisCDHHRYYVEO5860-34-99 04:35:00Not Detected (05/29/20 11:35 PM)[facility] HermannCARDIAC TAOAWVH2172-31-07 02:48:0095[facility]annCARDIAC ZQUUQYD0798-60-91 02:48:00<0.02[facility] HermannCHEM URGSE8979-60-27 02:48:29542Erepmaat HermannCHEM LXCMG6504-86-20 02:48:0036[facility] HermannCHEM EFXFF9317-67-66 02:48:004.42[facility] HermannCHEM QJHWT8214-47-48 02:48:90716Nzhozset HermannCHEM JNFAQ2794-42-22 02:48:003.1 [facility] HermannCHEM DQXWO5468-39-53 02:48:59169Iathjyks HermannCHEM PANEL 2020-05-30 02:48:0032[facility]annCHEM JEPWN8948-90-69 02:48:008.1[facility] HermannCHEM HLAYJ2601-86-41 02:48:008.0[facility] HermannCHEM OSAKP3320-17-98 02:48:003.1[facility] HermannCHEM DSLML5621-43-60 02:48:0081[facility]annCHEM BHBWL0466-84-29 02:48:80028Lawbabll HermannCHEM BZEZX7555-87-19 02:48:52455 [facility]annCHEM WJJWG4487-19-68 02:48:000.2[facility] HermannCHEM PANEL 2020-05-30 02:48:009.1[facility] HermannCHEM MWXXA4170-44-89 02:48:00 Test Item Value Reference Range Interpretation Comments B/C Ratio (test code = B/C Ratio) 8 1 6-25 [facility]annCHEM VJBUE2133-03-61 02:48:004.9[facility] HermannCHEM PANEL 2020-05-30 02:48:00 Test Item Value Reference Range Interpretation Comments A/G Ratio (test code = A/G Ratio) 0.6 1 0.7-1.6 [facility] HermannCHEM RRUTT4400-72-77 02:48:0015[facility] HermannENDOCRINOLOGY 2020-05-30 02:48:00Negative *NA*(05/29/20 9:48 PM)[facility]annHEMATOLOGY 2020-05-30 02:48:006.0[facility] WinglitJIDAAWCMSR0988-42-15 02:48:004.84[facility] PbspwxlCLMNXHPGOA9815-46-03 02:48:0013.3[facility] JwxsshkELEEXAYAIG1345-33-11 02:48:0041.6[facility] XehjlcyLJRZTHVVXO9465-57-58 02:48:0086.0[facility] QJJUNHHNZM6696-46-26 02:48:00 Test Item Value Reference Range Interpretation Comments MCH (test code = MCH) 27.4 pg 27.0-31.0 [facility] QkgcirbNKYYUYOKEY7616-82-41 02:48:0031.8[facility] HermannHEMATOLOGY 2020-05-30 02:48:0016.8[facility] CxxslneXFDTDVPTPI0282-45-91 02:48:76373Mhcuhqcx FtshrioJFXEUTDHDL7943-69-61 02:48:008.5[facility] NrlreplETANOQEDNM2044-41-15 02:48:00 Test Item Value Reference Range Interpretation Comments PT (test code = PT) 12.8 s 12.0-14.7 [facility] CquiiliLJYGFTRSJY0880-22-45 02:48:00 Test Item Value Reference Range Interpretation Comments INR (test code = INR) 0.96 1 0.85-1.17 [facility] TrejvppCWSSXEZVCD3188-49-72 02:48:00 Test Item Value Reference Range Interpretation Comments PTT (test code = PTT) 27.4 s 22.9-35.8 [facility] DluxfvrCUJROUGPHK3129-86-91 02:48:0066.7[facility] HermannHEMATOLOGY 2020-05-30 02:48:0021.8[facility] ZeljvbaLXBASBQGIW9007-80-94 02:48:0010.4[facility] RfewtxtPDJKZLJTLB5581-21-60 02:48:000.1[facility] YsbvxfzHHYABYINZX3319-61-43 02:48:001.0[facility] NgkwrmcLDWQZTLTNS4681-40-48 02:48:004.0[facility] RATOOYWTPM9512-01-81 02:48:001.3[facility] FkhgzstJLXYMFBXHB6609-62-20 02:48:000.6 [facility] ArqqpndDVWZROVUFZ1304-90-17 02:48:000.1[facility] KzkqpjlSJRTIL3094-49-97 02:48:09005Tyzaibww IqipgtfLOAWQC7473-47-26 02:48:81191Pryxfjtv HermannLIPIDS 2020-05-30 02:48:0090[facility] MpgzyqmDHKXDF5246-68-17 02:48:00 Test Item Value Reference Range Interpretation Comments CHD Risk (test code = CHD Risk) 3.02 1 3.90-5.80 [facility] OtbwobcAMHKZA1092-11-18 02:48:29171Baqnycem RevdeavSUZBOR9460-74-90 02:48:00 Test Item Value Reference Range Interpretation Comments VLDL (test code = VLDL) 51 1 [facility] HermannSPECIAL CVZDQMPAJ5495-90-55 02:48:004.4[facility] HermannCARDIAC LVXLTZS1551-31-69 02:48:0095[facility] HermannCARDIAC QLRPQIJ4859-04-20 02:48:00 <0.02[facility] HermannCHEM LHUKI5228-23-52 02:48:77384Mevgpawx HermannCHEM JFLVC4608-18-28 02:48:0036[facility] HermannCHEM ODEKT5544-30-45 02:48:004.42 [facility] HermannCHEM LMPLL7754-73-20 02:48:92763Fidtotfn HermannCHEM PANEL 2020-05-30 02:48:003.1[facility] HermannCHEM JIRVL1545-23-65 02:48:61820Wasyjecd HermannCHEM GPWBK9203-33-78 02:48:0032[facility] HermannCHEM VOWIM5737-76-01 02:48:008.1[facility] HermannCHEM GWIYE2031-80-92 02:48:008.0[facility] HermannCHEM VGQBS9252-11-20 02:48:003.1[facility] HermannCHEM CJRMK5905-26-58 02:48:0081 [facility] HermannCHEM JNXPV7150-76-70 02:48:93949Ewsqaynh HermannCHEM PANEL 2020-05-30 02:48:28224Yqiuvjsh HermannCHEM XCZBT7165-54-19 02:48:000.2[facility] HermannCHEM ACGFF9795-77-38 02:48:009.1[facility] HermannCHEM HYLTP9138-10-14 02:48:00 Test Item Value Reference Range Interpretation Comments B/C Ratio (test code = B/C Ratio) 8 1 6-25 [facility] HermannCHEM UIZUB6136-82-86 02:48:004.9[facility] HermannCHEM PANEL 2020-05-30 02:48:00 Test Item Value Reference Range Interpretation Comments A/G Ratio (test code = A/G Ratio) 0.6 1 0.7-1.6 [facility] HermannCHEM UXKUZ3556-85-75 02:48:0015[facility] HermannENDOCRINOLOGY 2020-05-30 02:48:00Negative *NA*(05/29/20 9:48 PM)[facility] HermannHEMATOLOGY 2020-05-30 02:48:006.0[facility] MbfeyduDKNFQQGNQY2537-96-60 02:48:004.84[facility] IsujvoqTHBOMPYHIT9747-50-45 02:48:0013.3[facility] RfbdbdsAOHTSWERRS6713-21-89 02:48:0041.6[facility] IeopobhZTFCQVSMES0649-05-68 02:48:0086.0[facility] PVJEQJQQEI2425-82-43 02:48:00 Test Item Value Reference Range Interpretation Comments MCH (test code = MCH) 27.4 pg 27.0-31.0 [facility] ObgtngmOTEWTGYHLR6502-28-05 02:48:0031.8[facility] HermannHEMATOLOGY 2020-05-30 02:48:0016.8[facility] PenbjieLKHFTJQMYI1018-15-60 02:48:71722Xzcakydv CpmxrlnHBLXYZEBWP5015-52-43 02:48:008.5[facility] LwqxrhfXNJQVNBTMJ4575-13-80 02:48:00 Test Item Value Reference Range Interpretation Comments PT (test code = PT) 12.8 s 12.0-14.7 [facility] ZvljvlaXRVHCWQZBP4769-30-03 02:48:00 Test Item Value Reference Range Interpretation Comments INR (test code = INR) 0.96 1 0.85-1.17 [facility] XrkutvpZXXRUQKBPO9663-68-18 02:48:00 Test Item Value Reference Range Interpretation Comments PTT (test code = PTT) 27.4 s 22.9-35.8 [facility] NkqkbguZBQIXLJGND8787-60-70 02:48:0066.7[facility] HermannHEMATOLOGY 2020-05-30 02:48:0021.8[facility] XsvtiozMVTNPAACUS3734-92-71 02:48:0010.4[facility] PexmdwpTQQHFSLBXX4120-13-88 02:48:000.1[facility] InqksmpIFCWHEJRLI4233-57-17 02:48:001.0[facility] BzudkvqIBPPCSAGII4024-17-66 02:48:004.0[facility] YRZEXXPLZJ8174-36-33 02:48:001.3[facility] IrtzggyTQUEHHLEPB8801-47-13 02:48:000.6 [facility] FluxynmNJZYCSIZIL7529-03-07 02:48:000.1[facility] CzygaenZNRPFF8692-81-43 02:48:49226Lkydkwst UgnfsmoLTZXWP3849-17-26 02:48:13685Lrykxdzg HermannLIPIDS 2020-05-30 02:48:0090[facility] HdolmjfYSKBPV6010-08-10 02:48:00 Test Item Value Reference Range Interpretation Comments CHD Risk (test code = CHD Risk) 3.02 1 3.90-5.80 [facility] XvygwwfWRPAWV3682-27-13 02:48:39052Ewbnznfo MjnivwzVORRIF8090-73-76 02:48:00 Test Item Value Reference Range Interpretation Comments VLDL (test code = VLDL) 51 1 [facility] HermannSPECIAL WRSTPUFKB5317-70-05 02:48:004.4[facility] HermannCHEM SASAD8407-39-81 08:32:0093[facility] HermannCHEM FDQNJ5458-14-29 08:32:0029 [facility] HermannCHEM SYRPS5039-92-45 08:32:004.15[facility] HermannCHEM PANEL 2020-04-13 08:32:73861Bogxnopb HermannCHEM KNYQW3845-46-22 08:32:003.9[facility] HermannCHEM SQRGP6056-75-09 08:32:27150Fvwtzhvc HermannCHEM ZPHSP8062-82-76 08:32:0028[facility] HermannCHEM BEGUR4551-22-96 08:32:0011.9[facility] HermannCHEM OMGTF5156-33-36 08:32:008.3[facility] HermannCHEM IMUBM0571-24-69 08:32:0016 [facility] JgymmifNNCOHWSQPC5287-98-11 08:32:0010.2[facility] HermannHEMATOLOGY 2020-04-13 08:32:002.73[facility] BtwstvlSSODXQSFSC5675-06-40 08:32:008.2[facility] QnjijsdFJVQAEKJJZ4508-71-77 08:32:0025.0[facility] JeyazreVPJHZDVEMI5036-02-94 08:32:0091.6[facility] PcwywgtFTVZPIPWEU0178-98-49 08:32:00 Test Item Value Reference Range Interpretation Comments MCH (test code = MCH) 30.1 pg 27.0-31.0 [facility] HxulpdhDJIUOCIXTC5158-15-96 08:32:0032.8[facility] HermannHEMATOLOGY 2020-04-13 08:32:0015.3[facility] QmejeucOCJJSOWBTV5026-23-16 08:32:28467Xchadkii AexjpmfVPQOCQWKOU0410-41-52 08:32:008.6[facility] StxwknrYWZILTPLAN9143-08-19 08:32:0072.7[facility] JcctkzkPEWDCBPQGZ5400-06-72 08:32:0018.9[facility] UHTOMVXBLQ9933-00-41 08:32:007.7[facility] YjeacwsONBKAFQZYH0645-08-97 08:32:000.4 [facility] KqkytkeZAAKSNDTUZ6306-69-64 08:32:000.3[facility] HermannHEMATOLOGY 2020-04-13 08:32:007.4[facility] GsrdzuiBXICHBMHBZ4332-02-99 08:32:001.9[facility] NejulcsMTMSSYAURE4259-05-18 08:32:000.8[facility] HermannCHEM ZAVET1014-13-43 08:32:0093[facility] HermannCHEM HUOIR4462-06-72 08:32:0029[facility] HermannCHEM RXBDL0643-91-51 08:32:004.15[facility] HermannCHEM OKXMW4189-39-98 08:32:01225 [facility] HermannCHEM ZTVUV4255-08-71 08:32:003.9[facility] HermannCHEM PANEL 2020-04-13 08:32:57906Hrzcxfyl HermannCHEM MOFRX1657-58-59 08:32:0028[facility] HermannCHEM DHPKQ3806-91-87 08:32:0011.9[facility] HermannCHEM DWRLI7217-58-69 08:32:008.3[facility] HermannCHEM LZPDH2383-04-67 08:32:0016[facility] XDFIXFUIUM2387-42-38 08:32:0010.2[facility] CkotdklTVYIKTLAOR2633-05-15 08:32:00 2.73[facility] LerydzdCJQSOQSLQV1138-03-08 08:32:008.2[facility] HermannHEMATOLOGY 2020-04-13 08:32:0025.0[facility] BqvzownAIVTXGRZNZ8688-96-32 08:32:0091.6[facility] JjqebuzJTOBBCPVAQ6253-57-39 08:32:00 Test Item Value Reference Range Interpretation Comments MCH (test code = MCH) 30.1 pg 27.0-31.0 [facility] KmepnvoCRBINZBDIN6610-52-03 08:32:0032.8[facility] HermannHEMATOLOGY 2020-04-13 08:32:0015.3[facility] VpidhzrFKZYJQMBRD3432-88-09 08:32:04156Zyhrkvzk OwejglxGLNNWXJMMO5524-06-34 08:32:008.6[facility] EtditsvCCHNXJMZOO2451-24-82 08:32:0072.7[facility] UbrpdseTJDKYAKTUN9808-28-88 08:32:0018.9[facility] FCDFUNZCPQ5189-22-72 08:32:007.7[facility] CncoebuNEBKLEBBFD1246-67-95 08:32:000.4 [facility] TbbvsisEIAUSKZXYT0009-98-53 08:32:000.3[facility] HermannHEMATOLOGY 2020-04-13 08:32:007.4[facility] SpoljhiUPIFIVWDRE7283-39-82 08:32:001.9[facility] TncsijoBXOWIQKMCG3099-00-93 08:32:000.8[facility] HermannCHEM YVMHL5115-48-22 10:45:13229Gipzlcwn HermannCHEM LUGEQ8988-09-14 10:45:28126Cawexjiw HermannCHEM VDJMQ7303-62-24 10:45:0041[facility] HermannCHEM FBDUW0846-71-82 10:45:006.38 [facility] HermannCHEM DFDHY3320-96-88 10:45:08605Cxwausmr HermannCHEM PANEL 2020-04-12 10:45:004.1[facility] HermannCHEM ZXENZ1772-37-02 10:45:55695Ewirlzbw HermannCHEM PQYAV8362-93-33 10:45:0026[facility] HermannCHEM KLZLI6878-72-28 10:45:008.8[facility] HermannCHEM PSBLM8954-82-63 10:45:0014.1[facility] HermannCHEM GQFWX7506-98-46 10:45:009[facility] HermannCHEM BXPBN1352-03-28 10:45:002.1 [facility] HermannCHEM XZYXG8755-11-48 10:45:006.8[facility] HermannHEMATOLOGY 2020-04-12 10:45:0011.9[facility] EbeczgcMEGREMLJQD5762-75-65 10:45:002.95[facility] ZoogwdrKVJJKNYTCC6604-16-98 10:45:008.7[facility] GlkhpfxVADXYLSABU8422-46-98 10:45:0026.8[facility] WqlvnkuMRXTCTFXKW8796-96-06 10:45:0090.9[facility] NFMTEMOCPQ0420-45-22 10:45:00 Test Item Value Reference Range Interpretation Comments MCH (test code = MCH) 29.7 pg 27.0-31.0 [facility] TwtescvTLOIZDOJYX2314-65-12 10:45:0032.6[facility] HermannHEMATOLOGY 2020-04-12 10:45:0015.0[facility] OtfscinOSONYEWNLP3225-50-25 10:45:90080Ljuqnayc VkyajhxGMIRQNCSTL5832-80-80 10:45:007.8[facility] DiscnawDGMFOOOTJJ3304-30-59 10:45:0080.0[facility] CllfsuhMSWFSDWRXA0716-15-59 10:45:0013.7[facility] EDRGPBOORL2939-20-39 10:45:005.9[facility] IkaqwotKCIBESBDTF0487-49-73 10:45:000.1 [facility] IthjrteNAZHJWWLPC1553-41-66 10:45:000.3[facility] HermannHEMATOLOGY 2020-04-12 10:45:009.5[facility] QdyugqoTYPRDTRZXW8284-70-63 10:45:001.6[facility] VjxicpyBZXSXUVVQF9625-13-65 10:45:000.7[facility] VmmihotNEJAZOLEXM2681-59-31 10:45:00Negative *NA*(04/12/20 5:45 AM)[facility] VmuqkmbHLFDWMZTCH7927-40-60 10:45:0010.6[facility] HermannCHEM IKAUA1733-24-22 10:45:94504Krkhpulm HermannCHEM PQGEF6435-45-63 10:45:49504Fwxbtfop HermannCHEM VDDND7814-24-02 10:45:0041 [facility] HermannCHEM FRJTH9325-89-61 10:45:006.38[facility] HermannCHEM PANEL 2020-04-12 10:45:35483Vmfkphix HermannCHEM CBZFT9137-47-94 10:45:004.1[facility] HermannCHEM SKDNG1438-39-26 10:45:39902Ztsgywzi HermannCHEM NFCVK1607-09-66 10:45:0026[facility] HermannCHEM HEOHE4941-23-62 10:45:008.8[facility] HermannCHEM UTWML8453-13-10 10:45:0014.1[facility] HermannCHEM UJYKL0760-85-55 10:45:009 [facility] HermannCHEM TWJKF6158-40-87 10:45:002.1[facility] HermannCHEM PANEL 2020-04-12 10:45:006.8[facility] IierxtpODUALWGKQW5110-46-11 10:45:0011.9[facility] BznsiyoXLQRDKAPAZ6602-06-30 10:45:002.95[facility] ClvndeaFFIRXCUVFQ1646-68-87 10:45:008.7[facility] ChcakmaQRVUKAOOJQ8599-65-04 10:45:0026.8[facility] WIDPTITZSF7489-40-86 10:45:0090.9[facility] VqdafpnGWGJLFUNSD0315-45-35 10:45:00 Test Item Value Reference Range Interpretation Comments MCH (test code = MCH) 29.7 pg 27.0-31.0 [facility] IcnyclmVPKCTXSYNB9668-28-61 10:45:0032.6[facility] HermannHEMATOLOGY 2020-04-12 10:45:0015.0[facility] CrkjpdpIEXIHNBODE3715-75-29 10:45:04201Pabouggx NjdmxuyWNXRGURDYV6503-76-72 10:45:007.8[facility] HxuhafoBBGWHHEROE5419-83-41 10:45:0080.0[facility] NzcrbjwJAVZOMQGTB9634-32-80 10:45:0013.7[facility] MSJNMNKAGX6981-62-61 10:45:005.9[facility] CsqjyodEUFZQDJPIH8614-69-85 10:45:000.1 [facility] NajowzwVPRGFQKVJA0598-79-67 10:45:000.3[facility] HermannHEMATOLOGY 2020-04-12 10:45:009.5[facility] VakduptIBPZEKHPOT6314-37-11 10:45:001.6[facility] HkoujdhXKCGAASBKG7447-94-20 10:45:000.7[facility] JxhdmmnTUPDKLMUEL0216-33-30 10:45:00Negative *NA*(04/12/20 5:45 AM)[facility] KutoqdlNUTANJAEFB8359-69-72 10:45:0010.6[facility] HermannCARDIAC MIAZXFD0794-18-56 16:28:000.12[facility] HermannCARDIAC LGWVPPE0151-02-08 16:28:000.12[facility] HermannTOXICOLOGY 2020-04-11 10:54:0048.2[facility] PdjdvpzUZGDNUGOWF4951-48-12 10:54:0048.2[facility] HermannCARDIAC VKKJAYL2638-99-61 08:17:000.18[facility] HermannCHEM PANEL 2020-04-11 08:17:000.6[facility] HermannCHEM ZWFFZ5521-15-07 08:17:0093[facility] HermannCHEM BUJGV2395-96-47 08:17:0026[facility] HermannCHEM GIBDD0029-84-08 08:17:004.39[facility] HermannCHEM EDGNE6785-17-82 08:17:03670Lbexrdio HermannCHEM LVGWA7574-45-08 08:17:004.2[facility] HermannCHEM AYPZJ9271-19-62 08:17:71263 [facility] HermannCHEM LGLFO4569-94-66 08:17:0028[facility] HermannCHEM PANEL 2020-04-11 08:17:0011.2[facility] HermannCHEM IFEWE9766-16-69 08:17:008.2[facility] HermannCHEM IFKKT4597-83-92 08:17:0015[facility] KonwclmMHKYYMVKFK3825-74-88 08:17:0075.0[facility] GhulqwoHKAJGNQBNH5704-14-97 08:17:0020.0[facility] XKDTZFDXUQ1798-89-53 08:17:004.4[facility] FwjmkqvZUUPOPMXIW3087-55-26 08:17:000.2 [facility] JaiasccLOQBUDRSRX2631-99-20 08:17:000.4[facility] HermannHEMATOLOGY 2020-04-11 08:17:009.4[facility] KqxzxasXBQFCPOHNU1287-57-52 08:17:002.5[facility] CmyanyaQDYLRRMDIS8851-43-60 08:17:000.6[facility] LmyqobdAXWEZMXBHJ7323-62-25 08:17:0012.5[facility] YhemqhdTKYPUAAGHT5940-58-45 08:17:003.18[facility] JRYNUDKXYN8464-28-98 08:17:009.5[facility] VazzczzUVJNMQHTPG1233-89-67 08:17:00 29.5[facility] IempksmAAVRQFFCOG0568-31-66 08:17:0092.9[facility] HermannHEMATOLOGY 2020-04-11 08:17:00 Test Item Value Reference Range Interpretation Comments MCH (test code = MCH) 29.8 pg 27.0-31.0 [facility] JoqddqcMBDKKGOOXR2717-50-39 08:17:0032.0[facility] HermannHEMATOLOGY 2020-04-11 08:17:0015.4[facility] KjjpyzaVXMQBZOCTZ0495-00-49 08:17:45872Pttlmhlk GkgrxhvZPBFNHBVNE2422-43-61 08:17:007.5[facility] HermannCARDIAC DPREZIK3980-89-31 08:17:000.18[facility] HermannCHEM NYNKZ3851-13-68 08:17:000.6[facility] HermannCHEM KXBET4728-31-21 08:17:0093[facility] HermannCHEM XFHOA3234-35-88 08:17:0026 [facility] HermannCHEM HHUMW8827-33-59 08:17:004.39[facility] HermannCHEM PANEL 2020-04-11 08:17:22672Oewjzayk HermannCHEM RAHIJ1019-70-76 08:17:004.2[facility] HermannCHEM XCPAN8459-30-62 08:17:04041Korfodiq HermannCHEM LDSNY0663-69-35 08:17:0028[facility] HermannCHEM OLQVO2166-78-59 08:17:0011.2[facility] HermannCHEM VDJTS3995-64-48 08:17:008.2[facility] HermannCHEM EZPNH4594-66-83 08:17:0015 [facility] ShdwvlaCGTBPIQAID2933-31-99 08:17:0075.0[facility] HermannHEMATOLOGY 2020-04-11 08:17:0020.0[facility] UjqwkcaLYGZNASVNI7158-40-24 08:17:004.4[facility] XqyxpbcADMPYGPIPM4135-00-12 08:17:000.2[facility] OdetnmxHVRFUNNINT7924-07-15 08:17:000.4[facility] YhepsmjCJBEJXZAVH6077-81-70 08:17:009.4[facility] PNBIOSYYCZ0624-51-66 08:17:002.5[facility] QvifdosRVDCIVXJUX1985-35-52 08:17:000.6 [facility] OzrqmgpKASNUGDCZZ2049-00-15 08:17:0012.5[facility] HermannHEMATOLOGY 2020-04-11 08:17:003.18[facility] LihiqjkRMGTCEIHZE8905-03-37 08:17:009.5[facility] EknoerpASWMDKSLHT8222-71-91 08:17:0029.5[facility] ZnpgkmzMQGHWLEGAB6805-26-70 08:17:0092.9[facility] EhipoppFQDIYYIDCL6787-17-23 08:17:00 Test Item Value Reference Range Interpretation Comments MCH (test code = MCH) 29.8 pg 27.0-31.0 [facility] BpvgvgvKLVCUUHIEW1402-62-17 08:17:0032.0[facility] HermannHEMATOLOGY 2020-04-11 08:17:0015.4[facility] CpskkhdGPBZLRQGCN7594-47-08 08:17:66693Czkqqpgg PvwsmzaHQWYVNXMQX6843-53-11 08:17:007.5[facility] HermannBACTERIAL - SEROLOGY 2020-04-10 20:13:00Negative (04/10/20 3:13 PM)[facility] HermannBACTERIAL [facility] 2020-04-10 20:13:00Negative (04/10/20 3:13 PM)[facility]annCHEM ZLLFI3001-99-84 17:39:000.6[facility]annCHEM FNEAK9852-30-34 17:39:001.05[facility]annCHEM FRBSJ3379-08-36 17:39:000.6[facility]annCHEM CHIII2457-61-48 17:39:001.05 [facility]CHE[facility] ZVDMX3974-64-70 13:00:001.6[facility]annIMMUNOLOGY 2020-04-10 13:00:00Positive 4*NA*(04/10/20 8:00 AM)[facility]annIMMUNOLOGY 2020-04-10 13:00:00Not Detected (04/10/20 8:00 AM)[facility]annCHEM PANEL 2020-04-10 13:00:001.6[facility] UjuwxufOOJCXMMVMZ8025-49-25 13:00:00Positive 4*NA*(04/10/20 8:00 AM)[facility] ZpwotwiRILLWHRBVR4140-63-15 13:00:00Not Detected (04/10/20 8:00 AM)[facility]annCARDIAC HOEBPQB4587-50-75 10:56:000.04[facility]annCARDIAC WVBWAXB9971-85-56 10:56:168292Dvcizwnx HermannCHEM PANEL 2020-04-10 10:56:007.7[facility]annCHEM LLOGF9846-24-88 10:56:003.2[facility]annCHEM YPXYK6053-27-96 10:56:0076[facility]annCHEM COYQX3610-15-78 10:56:0093[facility]annCHEM SQHIA6576-92-11 10:56:00341Zzrxdjuy HermannCHEM XLNOW2444-47-29 10:56:000.3[facility]annCHEM EYHBX9322-35-92 10:56:00 Test Item Value Reference Range Interpretation Comments B/C Ratio (test code = B/C Ratio) 9 1 625 [facility]CHE[facility] VVPBW7771-10-52 10:56:004.5[facility]annCHEM PANEL 2020-04-10 10:56:00 Test Item Value Reference Range Interpretation Comments A/G Ratio (test code = A/G Ratio) 0.7 1 0.7-1.6 [facility] YoxudycREODYYVURB1136-25-95 10:56:000.0[facility]annHEMATOLOGY 2020-04-10 10:56:001.0[facility] FnhyzvaSHLZYOJHLL5890-13-04 10:56:001[facility] KphksepNOORICMPHA4095-93-07 10:56:00Normal (04/10/20 5:56 AM)[facility] OLLRZDZEGZ9476-90-89 10:56:00Normal (04/10/20 5:56 AM)[facility]annHEMATOLOGY 2020-04-10 10:56:001+ *ABN*(04/10/20 5:56 AM)[facility] FoiqfotCIUDPHIXBC9550-44-60 10:56:001+ *ABN*(04/10/20 5:56 AM)[facility] LojkuatQVOVTCZHYJ5442-04-22 10:56:00 Moderate *ABN*(04/10/20 5:56 AM)[facility] TontevhZKNDKMPIYX1100-52-03 10:56:00 Moderate *ABN*(04/10/20 5:56 AM)[facility]annCARDIAC PKBCAVT1047-04-73 10:56:00 0.04[facility]annCARDIAC JDSHIYW4315-43-61 10:56:930478Raxspyhz HermannCHEM LQUUZ5227-06-38 10:56:007.7[facility]annCHEM GFPHD9113-34-07 10:56:003.2 [facility]annCHEM VCJTT4997-02-26 10:56:0076[facility]annCHEM PANEL 2020-04-10 10:56:0093[facility]annCHEM GFRLL0026-40-73 10:56:27596Sxsxzwpk HermannCHEM QGOUC9508-63-93 10:56:000.3[facility]annCHEM UYJWU8492-09-30 10:56:00 Test Item Value Reference Range Interpretation Comments B/C Ratio (test code = B/C Ratio) 9 1 6-25 [facility]CHE[facility] KLIKC6631-01-77 10:56:004.5[facility]annCHEM PANEL 2020-04-10 10:56:00 Test Item Value Reference Range Interpretation Comments A/G Ratio (test code = A/G Ratio) 0.7 1 0.7-1.6 [facility] XktacytOQFTTETIVZ2956-12-02 10:56:000.0[facility]annHEMATOLOGY 2020-04-10 10:56:001.0[facility] FinrsrnLCZJIAYIKU7133-91-83 10:56:001[facility] UjrqhemEDEQEJKIKT0489-25-34 10:56:00Normal (04/10/20 5:56 AM)[facility] EYCCKAVLDY0429-55-30 10:56:00Normal (04/10/20 5:56 AM)[facility]annHEMATOLOGY 2020-04-10 10:56:001+ *ABN*(04/10/20 5:56 AM)[facility] QbfqfpbTLRVBGJXDD2017-47-61 10:56:001+ *ABN*(04/10/20 5:56 AM)[facility] QcurlxdKMGDEFOHRW4671-28-63 10:56:00 Moderate *ABN*(04/10/20 5:56 AM)[facility] SfxsfdkFGSTYRDXAD8333-15-74 10:56:00 Moderate *ABN*(04/10/20 5:56 AM)[facility] HermannCHEM SZTCD5818-80-72 08:22:10115 [facility]annCHEM IJBAP7238-48-85 08:22:0035[facility]annCHEM PANEL 2020-03-23 08:22:004.35[facility]annCHEM TANIA8997-01-35 08:22:72729Tryfclqc HermannCHEM GWSRV8320-02-92 08:22:003.9[facility]annCHEM GPHNH4800-56-21 08:22:67653Bhaptxlx HermannCHEM IMCWP9739-89-68 08:22:0026[facility]annCHEM SDBSB4071-60-31 08:22:009.9[facility]annCHEM MWELY6832-37-35 08:22:007.8 [facility]annCHEM VOLHN9199-87-81 08:22:0015[facility]annCHEM PANEL 2020-03-23 08:22:003.5[facility]annCHEM OOFXL7274-80-25 08:22:85254Pabsizru HermannCHEM DIMEZ3099-95-02 08:22:0035[facility]annCHEM MBHFQ0400-13-84 08:22:004.35[facility]annCHEM ZRKJS7437-30-37 08:22:01866Fnuxrmha HermannCHEM QHAUN2891-43-34 08:22:003.9[facility]annCHEM LUVCD4665-95-57 08:22:47873 [facility]annCHEM EHXTH3327-14-20 08:22:0026[facility]annCHEM PANEL 2020-03-23 08:22:009.9[facility]annCHEM RGZYL0410-31-64 08:22:007.8[facility]annCHEM YJRIC5100-96-38 08:22:0015[facility]annCHEM TVRPS4462-17-29 08:22:003.5[facility]annCHEM TPIDT9094-20-11 09:37:001.7[facility]annCHEM SOBMA8454-22-34 09:37:003.6[facility]annCHEM SFGAL4064-23-27 09:37:31170 [facility]annCHEM JFKXI3314-52-63 09:37:0058[facility]annCHEM PANEL 2020-03-22 09:37:005.41[facility]annCHEM JVCZN3153-72-47 09:37:71224Wueabpjc HermannCHEM HKUMO4751-78-27 09:37:003.4[facility]annCHEM BDNCN7619-08-79 09:37:89610Cyrcnlui HermannCHEM QVNOZ4523-68-79 09:37:0021[facility]annCHEM DNIKJ8559-03-45 09:37:007.4[facility]annCHEM FRSWX5116-53-05 09:37:005.5 [facility]annCHEM IHXJU4182-43-15 09:37:002.6[facility]annCHEM PANEL 2020-03-22 09:37:0061[facility]annCHEM ZAVXA5908-99-32 09:37:0039[facility]annCHEM QYDOE6923-72-98 09:37:49808Lmfqeomv HermannCHEM TKPUS1970-62-59 09:37:000.3[facility]annCHEM ZIJQS4548-39-56 09:37:0014.4[facility]annCHEM DVSHW9640-63-60 09:37:00 Test Item Value Reference Range Interpretation Comments B/C Ratio (test code = B/C Ratio) 11 1 6-25 [facility]annCHEM XFCLU4222-67-35 09:37:002.9[facility]annCHEM PANEL 2020-03-22 09:37:00 Test Item Value Reference Range Interpretation Comments A/G Ratio (test code = A/G Ratio) 0.9 1 0.7-1.6 [facility]annCHEM AKNBI7114-87-20 09:37:0012[facility]annHEMATOLOGY 2020-03-22 09:37:0075.7[facility] WlodwtfTNCNIBMHJZ4919-88-57 09:37:0012.9[facility] HnfugajLSFNYLYJNE9449-97-33 09:37:0011.0[facility] BlhbyvwEKSOAPBYKC2735-96-35 09:37:000.2[facility] LmfxmugWECTVHHGXE6167-75-65 09:37:000.2[facility] WKHNHGMXPK8825-18-36 09:37:005.5[facility] ZtbmwyoJRQWRQZIHE5299-37-91 09:37:000.9 [facility] JlhbmzpRJXNATCWTL2787-41-30 09:37:000.8[facility]annHEMATOLOGY 2020-03-22 09:37:007.3[facility] QzajxnrFLCDXIJPNJ9843-22-68 09:37:002.66[facility] EjabafiYEFVVNTXGT5988-44-03 09:37:008.1[facility] TzswmevQGSOCXLZFX2430-35-28 09:37:0023.2[facility] EnqgutnGRDGLQYQDC7121-00-57 09:37:0087.3[facility] CKHDKYZGVK0280-87-31 09:37:00 Test Item Value Reference Range Interpretation Comments MCH (test code = MCH) 30.4 pg 27.0-31.0 [facility] SdqmqyvZORGNNSNEH8752-05-72 09:37:0034.8[facility]annHEMATOLOGY 2020-03-22 09:37:0014.9[facility] LfdhhyjHIIUHPARMU6625-06-31 09:37:29463Dgqdaxtj LiyqqcjJKYUFGMJID1042-72-72 09:37:008.7[facility]annCHEM SZDEI9107-09-25 09:37:001.7[facility]annCHEM MWDYC8869-06-22 09:37:003.6[facility]annCHEM IYPET8040-74-99 09:37:34690Ibjaaqrm HermannCHEM KBFYR4500-01-68 09:37:0058 [facility] YCPGT1256-01-58 09:37:005.41[facility]annCHEM PANEL 2020-03-22 09:37:72444Zntbtped [facility]annCHEM XEVZV2578-33-87 09:37:003.4[facility]annCHE[facility] ISPJZ3819-18-86 09:37:63631Sbposkyf [facility]annCHEM GOXEY1278-57-13 09:37:0021[facility]annCHE[facility] AGADI0816-52-22 09:37:007.4[facility]annCHE[facility] KFHPU5816-86-27 09:37:005.5[facility]annCHE[facility] OCSZZ2948-73-91 09:37:002.6 [facility]CHE[facility] MYSXD5922-48-95 09:37:0061[facility]annCHEM PANEL 2020-03-22 09:37:0039[facility]annCHE[facility] EESJI9557-29-29 09:37:35143Tzbxmywu [facility]annCHE[facility] SUZWE1183-86-35 09:37:000.3[facility]annCHE[facility] IVQSV8084-62-47 09:37:0014.4[facility]annCHE[facility] WBWHR8029-35-56 09:37:00 Test Item Value Reference Range Interpretation Comments B/C Ratio (test code = B/C Ratio) 11 1 6-25 [facility] OXTLZ4741-12-08 09:37:002.9[facility]annCHEM PANEL 2020-03-22 09:37:00 Test Item Value Reference Range Interpretation Comments A/G Ratio (test code = A/G Ratio) 0.9 1 0.7-1.6 [facility]CHE[facility] VEANQ7879-09-13 09:37:0012[facility]annHEMATOLOGY 2020-03-22 09:37:0075.7[facility] FnttfpxGVRJDXERKH2082-81-24 09:37:0012.9[facility] MzdsbliQSDKGUNRSA0184-76-77 09:37:0011.0[facility] CbubdmtRZOXGDOLFX1035-97-84 09:37:000.2[facility] VwnfaqkDAFDHMDGHY6992-53-36 09:37:000.2[facility] UGTRQNJQQW6559-33-53 09:37:005.5[facility] IdrabonRHFPDYVPCW1787-46-07 09:37:000.9 [facility] PxlaatqLXODPSLBLL5850-40-08 09:37:000.8[facility]annHEMATOLOGY 2020-03-22 09:37:007.3[facility] QryfqrmJSQGZGTZSE9301-68-96 09:37:002.66[facility] RfehnctILCLIPKIJX0380-03-14 09:37:008.1[facility] AhuzeufPCMXBZYHJS4978-15-13 09:37:0023.2[facility] NvaowfaZORBTQXJUU8143-46-98 09:37:0087.3[facility] PJVRHFPRPF1816-43-74 09:37:00 Test Item Value Reference Range Interpretation Comments MCH (test code = MCH) 30.4 pg 27.0-31.0 [facility] ZhlngrmCSISMJEGMS5996-17-63 09:37:0034.8[facility]annHEMATOLOGY 2020-03-22 09:37:0014.9[facility] OrtnuptNRBMZFNPER2961-17-10 09:37:87380Sgdriqwa UqtxcefHMLCBQBNHB5473-78-79 09:37:008.7[facility] ZewqacoXXAVDNSAVG7792-09-58 16:45:00Not Detected (03/21/20 11:45 AM)[facility] InpdkpvDHTPCXICHF3767-85-12 16:45:00Not Detected (03/21/20 11:45 AM)[facility]annANEMIA BHUYQ2784-29-14 08:49:0051[facility]annANEMIA JUXZX0129-37-22 08:49:41859Wzuzwkht Juancho ANEMIA VNTMG2863-60-66 08:49:57823Eceyzufy HermannANEMIA OAHXW8098-64-25 08:49:0032[facility]annANEMIA ESLLF7125-82-41 08:49:76507Nqtwartr HermannCHEM LBBPN9032-23-07 08:49:001.7[facility]annCHEM FDMVN3964-43-13 08:49:23785 [facility]CHE[facility] MPGQB1823-14-85 08:49:0084[facility]annCHEM PANEL 2020-03-21 08:49:007.17[facility]annCHEM AASWI1057-13-06 08:49:52228Lndlhpul [facility]annCHEM TTZYI8334-67-40 08:49:004.0[facility]annCHE[facility] HCBDC4982-01-45 08:49:29412Jhvpqyzm HermannCHEM PIDHL1864-17-02 08:49:0016[facility]annCHE[facility] XGQST3029-65-80 08:49:007.5[facility]annCHE[facility] NZSKU4284-58-71 08:49:005.5 [facility]annCHE[facility] AKDOR8352-18-04 08:49:002.6[facility]annCHEM PANEL 2020-03-21 08:49:0063[facility]annCHE[facility] PZJCI4062-70-37 08:49:0030[facility]annCHE[facility] TWNYD6747-52-05 08:49:15809Dqjrslvq [facility]annCHE[facility] TQQAK1899-77-55 08:49:000.2[facility]annCHE[facility] NXNPA9004-32-89 08:49:0015.0[facility]annCHE[facility] KUSSQ3895-99-74 08:49:00 Test Item Value Reference Range Interpretation Comments B/C Ratio (test code = B/C Ratio) 12 1 6-25 [facility]CHE[facility] YMOGN9140-05-54 08:49:002.9[facility]annCHEM PANEL 2020-03-21 08:49:00 Test Item Value Reference Range Interpretation Comments A/G Ratio (test code = A/G Ratio) 0.9 1 0.7-1.6 [facility]CHE[facility] GJHLJ9877-30-73 08:49:008[facility]annCHEM PANEL 2020-03-21 08:49:005.5[facility] XcyuacnNCVQKYEFRE5388-97-53 08:49:004.7[facility] DuyidlrTJPLPKQIGU3651-83-34 08:49:002.59[facility] EhzxtvpITQOTSBWQL3053-84-57 08:49:007.8[facility] IieqofjJQEPJMZPNH8062-46-18 08:49:0022.8[facility] WGEZXLTBLL7835-59-70 08:49:0088.1[facility] ZsdwvelWWUTQEVEBT1472-15-26 08:49:00 Test Item Value Reference Range Interpretation Comments MCH (test code = MCH) 30.2 pg 27.0-31.0 [facility] SdyietdQLKYMVCWRA7434-88-36 08:49:0034.3[facility]annHEMATOLOGY 2020-03-21 08:49:0014.9[facility] ZofvknrKABOCXJWNQ0511-18-28 08:49:23604Khawkago BlcyltcMDEPHVPMOM3105-09-98 08:49:008.6[facility] RgpxrtdTAJVPADVMV4288-64-24 08:49:0077.2[facility] SugidgaHZHMPLHOPH0836-58-11 08:49:0013.0[facility] BXFLVIVJHY7419-45-74 08:49:009.7[facility] ImmfqjlFBKEPUEFFO7244-13-80 08:49:000.1 [facility] ForixybYSYFFQELXQ0183-32-34 08:49:003.6[facility]annHEMATOLOGY 2020-03-21 08:49:000.6[facility] KkydfubSIMDZHBTSK2404-88-00 08:49:000.5[facility] BwzquybONMIZYJFUP4175-17-49 08:49:00Negative *NA*(03/21/20 3:49 AM)[facility] IzbxfcrZBBEPNRPTI5778-58-19 08:49:00Negative *NA*(03/21/20 3:49 AM)[facility] BheuhbxADNCGNQFJG5166-70-45 08:49:00Negative *NA*(03/21/20 3:49 AM)[facility] SdhfryxJWJWEXBNJU5848-87-33 08:49:00Negative *NA*(03/21/20 3:49 AM)[facility] YokmsotFNMGTYFJQC2684-64-12 08:49:0019[facility] HxzctedVWYGMOTSFN5993-45-18 08:49:0050[facility]annANEMIA ATENW5997-00-04 08:49:0051[facility] ANEMIA KFGFP0728-06-31 08:49:40907Aaygfgfn HermannANEMIA KOWGG8533-21-27 08:49:68577Sbeebpgi HermannANEMIA HQPRS4193-90-26 08:49:0032[facility] ANEMIA ZRDWC9703-57-29 08:49:37397Ppdesslk HermannCHEM LOPVB9287-86-88 08:49:00 1.7[facility]annCHEM EPLOC8424-08-74 08:49:65289Lzibikcb HermannCHEM PANEL 2020-03-21 08:49:0084[facility]annCHEM KQZAQ6723-03-70 08:49:007.17[facility]annCHEM BWBYY6004-88-83 08:49:76470Ytygslio HermannCHEM TDSEZ5132-49-86 08:49:004.0[facility]annCHE[facility] LJZSG3423-10-77 08:49:36602Haslmrxh HermannCHEM YNDEH6570-00-36 08:49:0016[facility]annCHEM HVSZY7095-19-93 08:49:007.5 [facility]annCHE[facility] FUTTF1629-18-43 08:49:005.5[facility]annCHEM PANEL 2020-03-21 08:49:002.6[facility]annCHEM AXLBJ2527-28-62 08:49:0063[facility]annCHEM QZNTT7603-30-84 08:49:0030[facility]annCHEM PVMTE2403-04-43 08:49:62074Kmbvklwj HermannCHEM RNJRZ0037-79-22 08:49:000.2[facility]annCHEM NHBMM9725-29-47 08:49:0015.0[facility]annCHEM EZQWY1979-89-82 08:49:00 Test Item Value Reference Range Interpretation Comments B/C Ratio (test code = B/C Ratio) 12 1 6-25 [facility]annCHE[facility] MCWHB0247-52-72 08:49:002.9[facility]annCHEM PANEL 2020-03-21 08:49:00 Test Item Value Reference Range Interpretation Comments A/G Ratio (test code = A/G Ratio) 0.9 1 0.7-1.6 [facility]annCHE[facility] SEDDS8528-91-70 08:49:008[facility]annCHEM PANEL 2020-03-21 08:49:005.5[facility] TtqbackUDJBDAPGYS6557-02-27 08:49:004.7[facility] HzuskawOAYWRJYTMX9508-34-86 08:49:002.59[facility] FiudlzyOKXOZFRCSZ1137-03-22 08:49:007.8[facility] ZmogphsQTRSFHUXDC9871-71-79 08:49:0022.8[facility] JLJHNCPFIT3186-18-13 08:49:0088.1[facility] GubtptvVDLSDBFMUM7766-31-80 08:49:00 Test Item Value Reference Range Interpretation Comments MCH (test code = MCH) 30.2 pg 27.0-31.0 [facility] HbutiuoHUVIBJDDFZ8364-94-26 08:49:0034.3[facility]annHEMATOLOGY 2020-03-21 08:49:0014.9[facility] PzzrgpjHHTKYIEXYM7807-24-98 08:49:64786Slwcjhpg PknswciVNBPKDFJYD5713-92-80 08:49:008.6[facility] NyszadsLAZXMKWTJU7180-90-40 08:49:0077.2[facility] FqvljqnSUSIEDEJLH6438-85-27 08:49:0013.0[facility] ZCEYQSBCTH8491-98-98 08:49:009.7[facility] EvcnpkgDXEBKADDRZ3100-65-68 08:49:000.1 [facility] DzowrezXGHCDTUTWO0268-32-95 08:49:003.6[facility]annHEMATOLOGY 2020-03-21 08:49:000.6[facility] JuoxgnuIWTTRNYTVZ9575-65-06 08:49:000.5[facility] UaipttwYOJFZINCVC8431-99-62 08:49:00Negative *NA*(03/21/20 3:49 AM)[facility] VgseyzjPVHCGZPTPD6473-24-08 08:49:00Negative *NA*(03/21/20 3:49 AM)[facility] IwxkbexTCCMLOFLHM6236-17-58 08:49:00Negative *NA*(03/21/20 3:49 AM)[facility] HaknmarWXJAMSDKCH2452-14-92 08:49:00Negative *NA*(03/21/20 3:49 AM)[facility] SbidbhlVKIRLYMHAM8320-82-42 08:49:0019[facility] PvggcfuJMFXIIZOKZ2523-04-37 08:49:0050[facility]annCHEM DVGNR0591-31-13 09:04:001.7[facility]annCHEM OKULI5208-38-38 09:04:005.1[facility]annCHEM CEMGF9647-14-26 09:04:002.6 [facility]annCHEM NYESQ4436-72-05 09:04:0075[facility]annCHEM PANEL 2020-03-20 09:04:0043[facility]annCHEM KZDUR2956-07-38 09:04:06538Zpvkhhzs HermannCHEM ALMYP7756-19-37 09:04:000.3[facility]annCHEM ZHEQI4868-37-56 09:04:00 Test Item Value Reference Range Interpretation Comments B/C Ratio (test code = B/C Ratio) 12 1 6-25 [facility]annCHE[facility] KPONI8454-54-29 09:04:002.5[facility]annCHEM PANEL 2020-03-20 09:04:00 Test Item Value Reference Range Interpretation Comments A/G Ratio (test code = A/G Ratio) 1.0 1 0.7-1.6 [facility] VasxnwyBYIKFZYDIE4689-73-93 09:04:0074.0[facility]annHEMATOLOGY 2020-03-20 09:04:0015.1[facility] ZlzninvXHGLZMQWLP7353-85-04 09:04:0010.6[facility] SiwyujvHXYQWRDBHL1203-12-42 09:04:000.1[facility] VamxteaKMRJSUJIVD7785-93-03 09:04:000.2[facility] AxkdmvpUNVXKKOZSR4808-75-99 09:04:003.7[facility] WEWGNUZQPV6424-49-97 09:04:000.8[facility] NxsmvqgQYIZXMHGJX8481-68-47 09:04:000.5 [facility] UmcxkamOXZMHPNAQS9314-13-20 09:04:005.0[facility]annHEMATOLOGY 2020-03-20 09:04:002.58[facility] SblzsqsDTOPXTMNCX3808-66-02 09:04:007.9[facility] XfsarbqIVHQMWGUAG6028-23-03 09:04:0022.6[facility] QowoyjtHBJDDLXJRR1978-84-28 09:04:0087.5[facility] FpwduztCYGBGEZEQZ0168-48-21 09:04:00 Test Item Value Reference Range Interpretation Comments MCH (test code = MCH) 30.4 pg 27.0-31.0 [facility] EiheltrORUUBGBWXV9027-55-64 09:04:0034.8[facility]annHEMATOLOGY 2020-03-20 09:04:0014.6[facility] DvjcdqxYPWQKPTBSQ5170-34-27 09:04:96547Svnlircj RddxlgcRIBOLKQENK2843-75-20 09:04:008.0[facility]annCHEM AGQEZ1120-23-26 09:04:001.7[facility]annCHEM ZRMQL6219-66-74 09:04:005.1[facility]annCHEM PGVNG3148-06-67 09:04:002.6[facility]annCHEM RXKAJ0371-65-83 09:04:0075 [facility]annCHE[facility] IKIPI1071-96-53 09:04:0043[facility]annCHEM PANEL 2020-03-20 09:04:79693Vucgskkr HermannCHEM EHFVD9140-04-46 09:04:000.3[facility]annCHEM VHGJZ0545-58-97 09:04:00 Test Item Value Reference Range Interpretation Comments B/C Ratio (test code = B/C Ratio) 12 1 6-25 [facility]annCHE[facility] HHHAO3023-16-66 09:04:002.5[facility]annCHEM PANEL 2020-03-20 09:04:00 Test Item Value Reference Range Interpretation Comments A/G Ratio (test code = A/G Ratio) 1.0 1 0.7-1.6 [facility] HgdxvljWBDHIXPKLQ2596-94-10 09:04:0074.0[facility]annHEMATOLOGY 2020-03-20 09:04:0015.1[facility] JorcspmIYFDCXAZKJ9536-35-28 09:04:0010.6[facility] YhwwktpSDXRIFHZCN2000-71-67 09:04:000.1[facility] TxcrahaTWELVKEXSO2725-98-70 09:04:000.2[facility] UsiaorfWPLUEFAGGF3051-46-55 09:04:003.7[facility] KCCPRFFURG0109-81-04 09:04:000.8[facility] VhlgxxyBXJXKMISCG6765-23-05 09:04:000.5 [facility] CrdozmiRGYNUWEGWT7280-41-98 09:04:005.0[facility]annHEMATOLOGY 2020-03-20 09:04:002.58[facility] AxjkxopKQJSXGPHHH3634-23-39 09:04:007.9[facility] OealkpgNTXULMCCWJ5755-37-73 09:04:0022.6[facility] QtlarylHKTRUGRBMT0628-53-37 09:04:0087.5[facility] WugzihuSNNIGWZRZY2730-79-73 09:04:00 Test Item Value Reference Range Interpretation Comments MCH (test code = MCH) 30.4 pg 27.0-31.0 [facility] TjjtucuXGFPVWQRMR7603-34-21 09:04:0034.8[facility]annHEMATOLOGY 2020-03-20 09:04:0014.6[facility] RtljkknVVPFDAHVSZ7849-49-24 09:04:58217Ajtqtagd WtptdiyJTFANNMGQS2235-09-33 09:04:008.0[facility]annURINE WJSD1372-08-04 18:15:00Negative (03/19/20 1:15 PM)[facility] ZTCI2555-46-63 18:15:00 Negative (03/19/20 1:15 PM)[facility] HermannBLOOD BANK OBGWFMH8251-93-19 15:37:00 Negative (03/19/20 10:37 AM)[facility] HermannBLOOD BANK XEKABZM1559-70-30 15:37:00 Negative (03/19/20 10:37 AM)[facility] HermannBLOOD BANK GDDVVZZ7192-85-57 14:43:00 Product available 4(03/19/20 9:43 AM)[facility] ONHZFXI5349-92-85 14:43:00Product available 4(03/19/20 9:43 AM)[facility] GrbqvmqTMYNNKGVGQ9093-37-56 11:40:000.4[facility] RspoyvtGEUTHZXBXJ9663-33-87 11:40:00Negative *NA*(03/19/20 6:40 AM)[facility] DtcputaTLMJPBSYBG5023-56-76 11:40:000.4[facility] JFRKQKHYGS5669-45-59 11:40:00Negative *NA*(03/19/20 6:40 AM)[facility] CARDIAC WCTMRNE2045-46-32 01:21:000.02[facility] HermannCARDIAC KXNOECT8753-39-65 01:21:5858578Lhorbyli HermannCARDIAC TXFIQEM6002-70-55 01:21:000.02[facility]annCARDIAC VKYYTTD0520-95-70 01:21:4821971Uhkmtxiq [facility]annURINE AND STOOL 2020-01-27 11:19:00Clear (01/27/20 6:19 AM)[facility] STOOL 2020-01-27 11:19:00 Test Item Value Reference Range Interpretation Comments UA Spec Grav (test code = UA Spec 1.005 1 Grav) [facility] MAQVK9118-63-71 11:19:00 Test Item Value Reference Range Interpretation Comments UA pH (test code = UA pH) 6.0 1 5.0-8.0 [facility] XMLUJ6762-51-33 11:19:00Negative *NA*(01/27/20 6:19 AM) [facility] SEHHV3507-01-73 11:19:00Small *ABN*(01/27/20 6:19 AM) [facility] CCLMD0611-69-25 11:19:00Negative (01/27/20 6:19 AM) [facility] UTHIZ5729-79-57 11:19:00Negative (01/27/20 6:19 AM) [facility] RTERW9373-39-72 11:19:006[facility] AND FFJMM0189-61-73 11:19:007[facility] AND LNBQX0041-37-29 11:19:00 Performed *NA*(01/27/20 6:19 AM)[facility] PYNY7186-15-86 11:19:00 Test Item Value Reference Range Interpretation Comments U Prot/Creat (test code = U 6.26 1 Prot/Creat) [facility] CBFS4905-56-79 11:19:05433Kslphwsq [facility]annURINE CHEM 2020-01-27 11:19:0024.40[facility] LTSN7917-65-28 11:19:59823.7 [facility] AND MBCCY8736-39-01 11:19:00Clear (01/27/20 6:19 AM) [facility] LRBOT0558-04-48 11:19:00 Test Item Value Reference Range Interpretation Comments UA Spec Grav (test code = UA Spec 1.005 1 Grav) [facility] EBTYX0250-98-24 11:19:00 Test Item Value Reference Range Interpretation Comments UA pH (test code = UA pH) 6.0 1 5.0-8.0 [facility] EUGNL8271-93-82 11:19:00Negative *NA*(01/27/20 6:19 AM) [facility] BOUFY1562-81-24 11:19:00Small *ABN*(01/27/20 6:19 AM) [facility] SSCIV3167-22-67 11:19:00Negative (01/27/20 6:19 AM) [facility] HFDEN3893-68-09 11:19:00Negative (01/27/20 6:19 AM) [facility] KTRDV4026-49-13 11:19:006[facility] AND KLANM1516-67-31 11:19:007[facility] AND XOOQI1705-01-22 11:19:00 Performed *NA*(01/27/20 6:19 AM)[facility] UWFO3039-06-83 11:19:00 Test Item Value Reference Range Interpretation Comments U Prot/Creat (test code = U 6.26 1 Prot/Creat) [facility] HVMU4546-06-71 11:19:15626Eefivwyj [facility]UR[facility] CHEM 2020-01-27 11:19:0024.40[facility] YIFA4875-85-94 11:19:31923.7 [facility]annCHEM DBTLT7940-23-92 08:33:004.2[facility] HermannCHEM PANEL 2020-01-27 08:33:001.9[facility] NuakxtiXLGGJYHOTI7306-05-44 08:33:0056.6[facility] KbskuwxBVIRSLMTES5910-67-89 08:33:0025.5[facility] RjiquyyWBQWAAEJJP6236-09-95 08:33:0017.4[facility] VxackjxRHGKYFVVLN7607-25-91 08:33:000.3[facility] NXJOOCUWVE0718-61-50 08:33:000.2[facility] JzjisjmSDLBDBYXCG1336-49-27 08:33:002.0 [facility] VrakfxoKARHYDXRMM7781-44-83 08:33:000.9[facility] HermannHEMATOLOGY 2020-01-27 08:33:000.6[facility] FhpavcwQACYNBYYGH2877-74-58 08:33:003.5[facility] FlbatllCNYBVYSRUI8052-31-07 08:33:002.62[facility] FgsazokTOMNZSRFOH6934-90-20 08:33:007.7[facility] ArmvrmmEKHZGWNFMR9989-47-67 08:33:0022.4[facility] AGNIANYVVO1554-85-39 08:33:0085.4[facility] ShutetwRKGQCAJQCK6149-12-19 08:33:00 Test Item Value Reference Range Interpretation Comments MCH (test code = MCH) 29.4 pg 27.0-31.0 [facility] WnliipzDXVODTVQQT8884-95-89 08:33:0034.5[facility]annHEMATOLOGY 2020-01-27 08:33:0013.3[facility] GdigjhjRVXVXNIUID6620-46-21 08:33:77519Rhzorirc QgowhisUZGQZKFKZZ0568-33-99 08:33:008.4[facility] HermannCHEM OSMUA1189-93-39 08:33:004.2[facility] HermannCHEM OKBTO1547-34-86 08:33:001.9[facility] XFYAVIBTXM6871-08-20 08:33:0056.6[facility] TblvaetXWSAPLPWXH9306-65-83 08:33:00 25.5[facility] TuibvjaWFAQSZEKNZ9120-07-40 08:33:0017.4[facility]annHEMATOLOGY 2020-01-27 08:33:000.3[facility] OiooyjyRQUKVDLZQS5767-24-13 08:33:000.2[facility] JlokstvBLORITOFLV8314-76-88 08:33:002.0[facility] QwdojnwXEVQBKTGFP1907-61-88 08:33:000.9[facility] TxslaybLVYHPPTPJI1061-48-96 08:33:000.6[facility] QTQEVWHVIE6448-95-64 08:33:003.5[facility] QvvhucaUSZXPNETXJ5992-43-37 08:33:00 2.62[facility] GtlxhbcAWSEMFYVLP4608-53-62 08:33:007.7[facility]annHEMATOLOGY 2020-01-27 08:33:0022.4[facility] YhdvabdQRHSFUQPOK9463-65-92 08:33:0085.4[facility] JsgzebjPKLEHZZCUJ4373-14-50 08:33:00 Test Item Value Reference Range Interpretation Comments MCH (test code = MCH) 29.4 pg 27.0-31.0 [facility] BhtahulOTYKSEDICQ3306-40-34 08:33:0034.5[facility]annHEMATOLOGY 2020-01-27 08:33:0013.3[facility] ClixdnnVQUXDSDGTK1748-23-47 08:33:38865Bxyxsngq XxlnprbCWIVUYZFKP0979-40-98 08:33:008.4[facility] HermannCHEM POLZW7406-37-10 00:02:0097[facility]annCHEM WYRNW0567-55-20 00:02:0087[facility] HermannCHEM BRQEV2687-21-85 00:02:005.69[facility] HermannCHEM NYGFU4933-52-06 00:02:20473 [facility]annCHEM HRWHX3615-78-95 00:02:004.5[facility] HermannCHEM PANEL 2020-01-27 00:02:04532Fziqysdh HermannCHEM NFHHO0007-36-82 00:02:0023[facility] HermannCHEM EPFAD1804-24-24 00:02:008.3[facility] HermannCHEM WGTRG3633-02-48 00:02:0011.5[facility] HermannCHEM LVWIT2656-77-91 00:02:0011[facility] HermannCHEM UHRIZ6701-94-45 00:02:0097[facility]annCHEM UBXDW5886-40-97 00:02:0087 [facility]annCHEM WTQPU2193-76-59 00:02:005.69[facility] HermannCHEM PANEL 2020-01-27 00:02:88308Xrjtkibz HermannCHEM WDJSW2086-34-65 00:02:004.5[facility] HermannCHEM QZTMX4149-56-59 00:02:74139Npvycxcf HermannCHEM NVRQR9507-27-49 00:02:0023[facility] HermannCHEM FOBTD6946-64-27 00:02:008.3[facility] HermannCHEM BBYVY3776-20-13 00:02:0011.5[facility] HermannCHEM DIKZP7805-37-78 00:02:0011 [facility]annCARDIAC NLWWKCN0729-14-94 12:20:00<0.02[facility] IMKOZMAMPK8925-97-18 12:20:0038[facility] EkonogoNDSRNLOKGO7709-73-21 12:20:0012 [facility]annCARDIAC EPKRQVE0078-18-51 12:20:00<0.02[facility] LUGLUSUGQL7780-09-98 12:20:0038[facility] VefozcpXNCKOSCFKI3251-43-73 12:20:0012 [facility] KPTJ7918-91-80 10:42:0062[facility] CHEM 2020-01-26 10:42:0015.3[facility] IOPQ2472-15-11 10:42:0051[facility] FQTA0365-32-75 10:42:0062[facility] CXSR8690-77-69 10:42:0015.3[facility] YJEB8457-04-33 10:42:0051[facility] CARDIAC FJXXDKW8519-96-78 08:19:51737Hedfaiuw [facility]annCARDIAC ZBHFISC7367-80-81 08:19:00<0.02[facility] HermannCHEM QOYOR2003-08-09 08:19:002.0[facility] CHEM ENEMF2555-12-72 08:19:004.7[facility] MmzzotxFBXPTYNCYX5718-20-81 08:19:003.5 [facility] IjqcnlzDKQFFYZJAU9736-32-10 08:19:002.82[facility]annHEMATOLOGY 2020-01-26 08:19:008.1[facility] WylvyhzKWOFKWGSTO2707-31-89 08:19:0024.4[facility] KxupvrhDASGWEMABC5116-96-04 08:19:0086.8[facility] GemthcpVACJLHEBAF1243-94-13 08:19:00 Test Item Value Reference Range Interpretation Comments MCH (test code = MCH) 28.7 pg 27.0-31.0 [facility] TogwbcvEEWNJJZKRZ1152-38-84 08:19:0033.1[facility] HermannHEMATOLOGY 2020-01-26 08:19:0013.4[facility] KlukzlhSFUNVIRCBT8287-89-03 08:19:91300Hhifqbpe XyxjugzWBIZBJQHSQ3460-61-53 08:19:008.5[facility] JlnidvzBEPEABTSDR3349-95-94 08:19:00Normal (01/26/20 3:19 AM)[facility] GbuuvplPFQTOSMXFV6200-38-77 08:19:00 Normal (01/26/20 3:19 AM)[facility] EmclghxPDVBSQBKQC9172-21-39 08:19:0053.4 [facility] VaayxunMQLKLRJJDL0011-50-00 08:19:0024.1[facility] HermannHEMATOLOGY 2020-01-26 08:19:0021.9[facility] HtweyhgXIJHBOOBBU8702-99-66 08:19:000.3[facility] LqexjjvGVFCGGGAQT1692-71-36 08:19:000.3[facility] UfdaiffPHAZEGIJGF7108-82-80 08:19:001.9[facility] PixpfsoALOEJSYRQF3349-25-61 08:19:000.8[facility] OBONMRHMVM2147-57-51 08:19:000.8[facility]annCARDIAC CGQIZMT5004-63-02 08:19:20629Pgtfqxne HermannCARDIAC BZLAPON3223-80-12 08:19:00<0.02[facility]annCHEM QFYXI7689-49-82 08:19:002.0[facility]annCHEM LCBWW7857-49-24 08:19:004.7[facility] PpqysewOHVGQTHNDM3822-41-85 08:19:003.5[facility] SCOZMBRBRU3557-53-04 08:19:002.82[facility] CsfpsyuUYZZTARMTK6875-57-36 08:19:00 8.1[facility] OsgfbmaPISUVBUAYA9571-15-51 08:19:0024.4[facility]annHEMATOLOGY 2020-01-26 08:19:0086.8[facility] KeqwqzeYUASYGRKAK0070-50-14 08:19:00 Test Item Value Reference Range Interpretation Comments MCH (test code = MCH) 28.7 pg 27.0-31.0 [facility] EzlckjcPIZDMWGTCA2765-58-70 08:19:0033.1[facility]annHEMATOLOGY 2020-01-26 08:19:0013.4[facility] NpleerhSKXENZDYYU3794-19-82 08:19:03460Sxdemjlf TaamzmnMHSQRNVYJU6577-20-77 08:19:008.5[facility] UsgyrgpFWDFWMDZBG3066-53-68 08:19:00Normal (01/26/20 3:19 AM)[facility] DzttyinGARCLLVNXK6850-25-68 08:19:00 Normal (01/26/20 3:19 AM)[facility] CtiobtpXSUTNZWJEQ1817-38-87 08:19:0053.4 [facility] AizktrlMSLZRPCQIZ1273-85-92 08:19:0024.1[facility] HermannHEMATOLOGY 2020-01-26 08:19:0021.9[facility] DeglvkwWBLPGJZZDO1673-00-61 08:19:000.3[facility] ClslwtqGNCLJGOOFI7961-69-02 08:19:000.3[facility] YdefovrWNYFZYJAFV0706-53-31 08:19:001.9[facility] YolzztvVTLBDZRRJY8299-04-44 08:19:000.8[facility] HPWZGUOVOC1712-26-78 08:19:000.8[facility] AND TPOLR2445-94-34 04:54:00Slight *ABN*(01/25/20 11:54 PM)[facility] SZSBH8773-38-81 04:54:00 Test Item Value Reference Range Interpretation Comments UA Spec Grav (test code = UA Spec 1.009 1 Grav) [facility] YEOHD0024-96-38 04:54:00 Test Item Value Reference Range Interpretation Comments UA pH (test code = UA pH) 5.0 1 5.0-8.0 [facility] NUPAC8064-84-30 04:54:00Negative *NA*(01/25/20 11:54 PM)[facility] BXHJU8784-44-91 04:54:00Small *ABN*(01/25/20 11:54 PM)[facility] AHGWP9008-48-11 04:54:00Negative (01/25/20 11:54 PM) [facility] ARRGH9472-73-14 04:54:00Trace *ABN*(01/25/20 11:54 PM) [facility] ODQMS5625-46-21 04:54:0013[facility] AND EDUFW2361-56-89 04:54:002[facility] AND HFIZG6795-71-18 04:54:00 Slight *ABN*(01/25/20 11:54 PM)[facility] PSNLU9694-61-18 04:54:00 Test Item Value Reference Range Interpretation Comments UA Spec Grav (test code = UA Spec 1.009 1 Grav) [facility] YUWYP3132-88-58 04:54:00 Test Item Value Reference Range Interpretation Comments UA pH (test code = UA pH) 5.0 1 5.0-8.0 [facility] GMQJV1682-96-74 04:54:00Negative *NA*(01/25/20 11:54 PM)[facility] JYXAZ7535-72-04 04:54:00Small *ABN*(01/25/20 11:54 PM)[facility] FFSUM1476-37-83 04:54:00Negative (01/25/20 11:54 PM) [facility] EADGA2505-49-08 04:54:00Trace *ABN*(01/25/20 11:54 PM) [facility] TTLKH5732-75-90 04:54:0013[facility] CFZGE0006-86-01 04:54:002[facility] HermannCARDIAC CIAKRJH4834-31-14 03:15:169558 [facility]annCHEM QIAVA0639-50-44 03:15:92400Nfacvbpt HermannCHEM PANEL 2020-01-26 03:15:0092[facility]annCHEM MBQNR8339-07-59 03:15:005.98[facility]annCHEM LWCCJ1401-63-49 03:15:31904Kjcmojrv [facility]annCHE[facility] CHWBW0685-08-57 03:15:005.1[facility]annCHEM BPKGO7559-63-97 03:15:71030Vbrsegse HermannCHEM DWEIX7024-50-93 03:15:0021[facility]annCHEM WPBZR3956-29-71 03:15:008.8 [facility]annCHEM MFFXY0766-32-70 03:15:007.5[facility] HermannCHEM PANEL 2020-01-26 03:15:003.3[facility]annCHEM HGAKC8190-94-37 03:15:0039[facility]annCHEM CRKVM0558-80-35 03:15:0026[facility]annCHEM ONVOO6147-76-07 03:15:56233Jstvoetr HermannCHEM BWTZH3340-21-61 03:15:000.2[facility]annCHEM CVGTE7708-38-98 03:15:0012.1[facility]annCHEM OIPYR4558-64-62 03:15:00 Test Item Value Reference Range Interpretation Comments B/C Ratio (test code = B/C Ratio) 15 1 6-25 [facility]annCHE[facility] HBQPU4669-90-93 03:15:004.2[facility] HermannCHEM PANEL 2020-01-26 03:15:00 Test Item Value Reference Range Interpretation Comments A/G Ratio (test code = A/G Ratio) 0.8 1 0.7-1.6 [facility]annCHEM LZZJV7946-53-15 03:15:0010[facility] [facility]annENDOCRINOLOGY 2020-01-26 03:15:00Negative *NA*(01/25/20 10:15 PM)[facility]MAT[facility] 2020-01-26 03:15:003.0[facility] EfswlcgZNTNLKKBZW4368-75-95 03:15:002.92[facility] ZxmdawwZOKYMBXMXJ1353-16-00 03:15:008.5[facility] VgfuxfwLPTOFMMRLW7406-81-29 03:15:0025.2[facility] XkrcxmkHZNGOWLJUQ1998-99-89 03:15:0086.2[facility] XLFIUMHKHM3821-84-45 03:15:00 Test Item Value Reference Range Interpretation Comments MCH (test code = MCH) 29.0 pg 27.0-31.0 [facility] RtyxwkcQMACYWKMPM1019-20-88 03:15:0033.6[facility]annHEMATOLOGY 2020-01-26 03:15:0013.2[facility] CdrbkeeFKYEKBQYHC9511-69-99 03:15:56887Palnhwxz DkkfvkfFHPVQROLOX4742-18-55 03:15:008.3[facility] ZoyaqujCQZVNJZWQG2057-08-82 03:15:0063.1[facility] LhpwmhrDNNNAEEOYZ2206-78-67 03:15:0017.7[facility] TIQWMFOJQX2983-61-30 03:15:0018.5[facility] NrkfafnCNTZWSVRKY2025-41-66 03:15:00 0.1[facility] IosemyjRPPOUWGIXP5066-15-16 03:15:000.6[facility]annHEMATOLOGY 2020-01-26 03:15:001.9[facility] HukydqmJBFCXOICBC8104-65-37 03:15:000.5[facility] ZdfcxhxHMMKYEUIEE6042-62-98 03:15:000.6[facility] HermannCARDIAC IPMNOKQ7397-04-07 03:15:205576Hbcydxor HermannCHEM LNATE9174-25-63 03:15:14958Vjkxymzc [facility]annCHEM RJDRG5449-06-23 03:15:0092[facility] HermannCHEM DEYAR9391-00-88 03:15:005.98 [facility]annCHEM XPDIA2349-48-31 03:15:76361Zttvqbmn HermannCHEM PANEL 2020-01-26 03:15:005.1[facility] HermannCHEM RPGEO6561-34-98 03:15:12375Hemmmmgr HermannCHEM JRLFY2373-13-17 03:15:0021[facility]annCHEM ZHAWK5023-21-08 03:15:008.8[facility] HermannCHEM TBLNS2695-51-44 03:15:007.5[facility] HermannCHEM CUONB1595-80-38 03:15:003.3[facility] HermannCHEM PMIJZ2183-76-34 03:15:0039 [facility]annCHEM WMJSS0860-77-59 03:15:0026[facility]annCHEM PANEL 2020-01-26 03:15:56887Ivfkrwbg [facility]annCHEM ETYPQ4887-99-55 03:15:000.2[facility]annCHEM WCDAO1215-92-90 03:15:0012.1[facility]annCHEM GLRGZ2480-90-81 03:15:00 Test Item Value Reference Range Interpretation Comments B/C Ratio (test code = B/C Ratio) 15 1 6-25 [facility]annCHEM KHHND0805-57-25 03:15:004.2[facility]annCHEM PANEL 2020-01-26 03:15:00 Test Item Value Reference Range Interpretation Comments A/G Ratio (test code = A/G Ratio) 0.8 1 0.7-1.6 [facility]annCHEM PMQKB3574-62-45 03:15:0010[facility]annENDOCRINOLOGY 2020-01-26 03:15:00Negative *NA*(01/25/20 10:15 PM)[facility]annHEMATOLOGY 2020-01-26 03:15:003.0[facility] KyjakrbZKHLIEEMOC7190-14-57 03:15:002.92[facility] NgpoimrLEAQOPIXCG6015-75-34 03:15:008.5[facility] AnomeyjDNBODJOUIS1164-90-85 03:15:0025.2[facility] PaaxuokOJALHMANXM9190-79-15 03:15:0086.2[facility] WORLBQOFPD6544-94-07 03:15:00 Test Item Value Reference Range Interpretation Comments MCH (test code = MCH) 29.0 pg 27.0-31.0 [facility] IupbactOVQFBBCBGM3782-56-11 03:15:0033.6[facility] HermannHEMATOLOGY 2020-01-26 03:15:0013.2[facility] QxqpbxlWIZXFROEKX6541-08-03 03:15:09576Xglsgpjd SdvijrjYIGAJBMHQE0371-72-72 03:15:008.3[facility] ZiagpaaZJRNQTOQXL8236-69-91 03:15:0063.1[facility] XnceoxuTTOMLLHXIO7959-55-12 03:15:0017.7[facility] KBVJEBCVKO5897-99-18 03:15:0018.5[facility] JavqptyVZXPGIHTTO5975-35-82 03:15:00 0.1[facility] EgdjjtwVECYOIESFS1145-16-97 03:15:000.6[facility]annHEMATOLOGY 2020-01-26 03:15:001.9[facility] XpnihrhPIQQDKWNMC1700-76-35 03:15:000.5[facility] CwcpsbtYVKYANXPWL0656-21-78 03:15:000.6[facility] HermannCHEM MXZHF7243-79-66 10:17:002.2[facility] HermannCHEM VTLBH8696-97-64 10:17:0084[facility]annCHEM CEQWS2442-23-97 10:17:0082[facility]annCHEM HINZS9793-47-30 10:17:006.33 [facility]annCHEM NVEBT8755-71-05 10:17:81556Sjvnniee HermannCHEM PANEL 2020-01-07 10:17:005.2[facility] HermannCHEM XFJGV1217-55-70 10:17:81932Cwpukqih HermannCHEM JOXUU3132-34-52 10:17:0018[facility]annCHEM AWRMV9301-69-89 10:17:008.5[facility] HermannCHEM JOWIE2665-63-41 10:17:0016.2[facility] HermannCHEM UIEYT7842-95-05 10:17:0010[facility]annCHEM OYCAG9653-78-57 10:17:006.3 [facility] RuidvqfESQKIIXRDV1739-38-98 10:17:007.8[facility] HermannHEMATOLOGY 2020-01-07 10:17:003.18[facility] UmfsngsPLNAAKKHPD2028-80-88 10:17:009.4[facility] NouiaqjPBZFVYLQZF7675-16-19 10:17:0027.6[facility] FvbffmuULLASJIADF4514-52-98 10:17:0086.9[facility] AuoxufsRLGVSRYOWR4219-14-55 10:17:00 Test Item Value Reference Range Interpretation Comments MCH (test code = MCH) 29.5 pg 27.0-31.0 [facility] JfojndiMHYFQPHJFF8455-91-22 10:17:0033.9[facility] HermannHEMATOLOGY 2020-01-07 10:17:0013.6[facility] CqjhxakAUWXQTQQDG0549-13-64 10:17:38446Zejjvyqd YcojllqSUHTDJABXK2933-22-26 10:17:009.4[facility] NykomyvCOFBJBDGBQ1972-02-31 10:17:0070.5[facility] PeqkqxkNUPDPXCDBY9430-66-28 10:17:0021.4[facility] ELZPZJQBDL6259-54-98 10:17:007.9[facility] FwbzibuVNEYCAJAYX8233-97-57 10:17:000.2 [facility] EjhkgzuDXCMYCRBKR7696-20-48 10:17:005.5[facility] HermannHEMATOLOGY 2020-01-07 10:17:001.7[facility] MqqioksMHLTVSKWNO4365-09-37 10:17:000.6[facility] HermannCHEM KNCSH2799-11-48 10:17:002.2[facility] HermannCHEM CVTGN6164-49-21 10:17:0084[facility] HermannCHEM VEDPB3743-31-89 10:17:0082[facility] HermannCHEM SNNCH6506-11-47 10:17:006.33[facility] HermannCHEM MCAAB9758-30-09 10:17:99245 [facility]annCHEM ZUPTI5671-56-25 10:17:005.2[facility] HermannCHEM PANEL 2020-01-07 10:17:39907Msiwyjcn HermannCHEM NZLNQ7326-05-84 10:17:0018[facility]annCHEM YZAOY7457-48-54 10:17:008.5[facility] HermannCHEM XXXYR8555-06-89 10:17:0016.2[facility] HermannCHEM HWRRV3183-38-14 10:17:0010[facility] HermannCHEM OAKHY4296-11-50 10:17:006.3[facility] ShqicxnKXPMJHDRHJ1584-29-46 10:17:007.8 [facility] VgbqrufJKLIOQNABT8263-33-96 10:17:003.18[facility]annHEMATOLOGY 2020-01-07 10:17:009.4[facility] TriwisjTIHAFDGDDB7753-57-26 10:17:0027.6[facility] CtacriwMVUVTVOUER0491-99-50 10:17:0086.9[facility] FvgkqpzDOXMUOQENB0871-89-00 10:17:00 Test Item Value Reference Range Interpretation Comments MCH (test code = MCH) 29.5 pg 27.0-31.0 [facility] RbzqhcvZRCFPRUUMU1095-73-20 10:17:0033.9[facility] HermannHEMATOLOGY 2020-01-07 10:17:0013.6[facility] OwftpdrZZRVIVYBDK4490-89-57 10:17:99577Hrulfpad QpqlnntYIXQUZJEHM1396-85-42 10:17:009.4[facility] NhmdekyUGWKMIJNGV5280-61-72 10:17:0070.5[facility] RdocefjNJGQRUFKXB7951-26-02 10:17:0021.4[facility] BRSCXPQEOB7840-55-68 10:17:007.9[facility] ZrdeilzFSDQEHHBVH2494-49-52 10:17:000.2 [facility] CvllpwcQVYDBWOMEF4561-63-80 10:17:005.5[facility]annHEMATOLOGY 2020-01-07 10:17:001.7[facility] EkdncwrIGXAGKJLWN7486-46-77 10:17:000.6[facility]annURINE AND ARTSN9798-72-99 20:23:00Few (01/06/20 2:23 PM)[facility] URINE AND QNSLK4409-70-63 20:23:00Few (01/06/20 2:23 PM)[facility] HermannCHEM MZSFY5101-70-23 09:48:002.4[facility] HermannCHEM CKZOD8063-53-16 09:48:0096 [facility]annCHEM SQBMY4804-48-27 09:48:0076[facility] HermannCHEM PANEL 2020-01-06 09:48:006.55[facility] HermannCHEM QNRDX2306-93-58 09:48:99221Haxxgcbt HermannCHEM QBTGR3702-95-17 09:48:005.1[facility] HermannCHEM YUKSG1314-60-12 09:48:34829Sjptahur HermannCHEM VRWVZ0839-15-68 09:48:0021[facility]annCHEM WXOBB2827-45-08 09:48:008.1[facility]annCHEM ZPHTF7526-29-59 09:48:0013.1 [facility]annCHEM BSTRD9594-75-15 09:48:009[facility]annCHEM PANEL 2020-01-06 09:48:006.1[facility] VicvaeyXJVVLBZNZB2896-67-93 09:48:0074.0[facility] SfixbrdLEQHTEJCNA2581-63-80 09:48:0018.6[facility] DncgzanSHPQUPWFMB2781-05-91 09:48:007.3[facility] PgsgeskSYXXSQGOEA4778-39-25 09:48:000.1[facility] BJTZMEIXUZ9405-69-49 09:48:005.7[facility] EsdgaupWWRNIOESSL2769-37-30 09:48:001.4 [facility] IqnjxomYQYPXQXASG0699-88-40 09:48:000.6[facility]annHEMATOLOGY 2020-01-06 09:48:007.7[facility] DbxpkxiMNXZEKNTJS7856-71-91 09:48:002.87[facility] OcsflevFFVYHRRGFU9367-28-83 09:48:008.3[facility] HghtvfeHPXQQRJUEJ5673-58-64 09:48:0024.9[facility] FamrdsmOBYZGFDWRL4001-36-74 09:48:0086.7[facility] HFOAFHOTLI5001-34-02 09:48:00 Test Item Value Reference Range Interpretation Comments MCH (test code = MCH) 29.0 pg 27.0-31.0 [facility] IqzqnppWDECSBGCOZ5051-20-12 09:48:0033.5[facility]annHEMATOLOGY 2020-01-06 09:48:0014.0[facility] FfuhzdyTVIRTHZMCL8717-85-23 09:48:81237Iobvyhxk BitrmerMCPFWBLGTS7184-60-61 09:48:009.4[facility] HermannCHEM AMCPL4579-45-43 09:48:002.4[facility] HermannCHEM TDHFQ1680-63-81 09:48:0096[facility]annCHEM STMAY2141-05-58 09:48:0076[facility] HermannCHEM KKPYL2885-18-36 09:48:006.55 [facility]annCHEM DVXRE9113-85-21 09:48:70289Rboljstk HermannCHEM PANEL 2020-01-06 09:48:005.1[facility] HermannCHEM YRQTO2266-23-65 09:48:57465Givictse HermannCHEM HIPXU4182-02-08 09:48:0021[facility]annCHEM GJGAV7196-52-88 09:48:008.1[facility] HermannCHEM FXOTW5488-96-37 09:48:0013.1[facility] HermannCHEM GYSFX0909-68-16 09:48:009[facility]annCHEM HQPTL0923-34-29 09:48:006.1 [facility] DivmvmfDMXAYKULBO8705-52-11 09:48:0074.0[facility]annHEMATOLOGY 2020-01-06 09:48:0018.6[facility] NvebatmNTCLXRGZQD2285-96-63 09:48:007.3[facility] YtfgdcnEOQORXUYDM0232-78-92 09:48:000.1[facility] OrutzldVMVBFISQNP7589-81-04 09:48:005.7[facility] CrlqdhyTFDCYPSZDU2094-38-18 09:48:001.4[facility] WBAKHLTVHE3684-72-65 09:48:000.6[facility] JfzyarwCWSDTSPYSW4821-97-67 09:48:007.7 [facility] DethitkUCUECVWGBN8497-82-78 09:48:002.87[facility]annHEMATOLOGY 2020-01-06 09:48:008.3[facility] TtkeyemLGHTVAYXTE4864-50-80 09:48:0024.9[facility] RcwyszzTQSWKXMOFJ9701-79-96 09:48:0086.7[facility] CjnsqaaDNBJSSIWPA3056-78-39 09:48:00 Test Item Value Reference Range Interpretation Comments MCH (test code = MCH) 29.0 pg 27.0-31.0 [facility] HtghhqeVURNIKTCJV4577-88-12 09:48:0033.5[facility] HermannHEMATOLOGY 2020-01-06 09:48:0014.0[facility] BemqzmhTXDGYVPWMJ3784-95-54 09:48:83745Lxupfzkq ZnkkckbCETCCBBCXX0404-38-67 09:48:009.4[facility] HermannANEMIA CXRGB6287-17-47 09:36:79223Xvudazwc HermannANEMIA VDFIR1835-84-28 09:36:0056[facility] ANEMIA IQFRT8733-08-27 09:36:68892Atnssqey HermannANEMIA TBKFF7652-06-11 09:36:0099[facility] HermannANEMIA ZEIGD2860-82-29 09:36:0036[facility] HermannCHEM KYQXU3671-07-16 09:36:005.9[facility] HermannCHEM KVLME4568-57-84 09:36:23301 [facility]annCHEM IRLYF8311-42-58 09:36:0071[facility] HermannCHEM PANEL 2020-01-05 09:36:006.69[facility] HermannCHEM RUXIR3207-85-07 09:36:38656Erefpiwn HermannCHEM AWQQS0030-56-86 09:36:005.1[facility] HermannCHEM IZBGN1221-42-14 09:36:13781Uugrimrp HermannCHEM HYUOG8285-39-85 09:36:0021[facility]annCHEM WGWHT8177-25-54 09:36:008.0[facility]annCHEM FDWTL2489-55-93 09:36:0012.1 [facility]annCHEM LXPWJ4405-26-26 09:36:009[facility]annCHEM PANEL 2020-01-05 09:36:001.7[facility] TygacdpAPWHOIEJHB7757-62-77 09:36:001:40 *ABN*(01/05/20 3:36 AM)[facility] XsgueuiZYXCRNBSUH6446-53-10 09:36:00Positive *ABN*(01/05/20 3:36 AM)[facility] HermannANEMIA JUKKT5995-97-38 09:36:57536Bjdwtjhd HermannANEMIA UOQHJ4790-98-53 09:36:0056[facility] HermannANEMIA SHPTA9071-99-35 09:36:01200Oeoxlwho HermannANEMIA JZIQK0165-17-16 09:36:0099[facility] ANEMIA ATPVW5346-10-09 09:36:0036[facility]annCHEM DFEYY4757-93-26 09:36:00 5.9[facility] HermannCHEM HRWRG4208-77-62 09:36:92556Dhwevwfx HermannCHEM PANEL 2020-01-05 09:36:0071[facility] HermannCHEM JCLGO7696-16-79 09:36:006.69[facility]annCHEM SLDNL2167-52-90 09:36:90040Iixagmlh HermannCHEM PXPHH5850-22-17 09:36:005.1[facility] HermannCHEM VZTKM6497-70-62 09:36:48494Kdqavqpb [facility]annCHEM PCXFM1201-79-83 09:36:0021[facility] HermannCHEM WUTOD0493-30-28 09:36:008.0 [facility]annCHEM JOHJO7733-88-15 09:36:0012.1[facility] HermannCHEM PANEL 2020-01-05 09:36:009[facility]annCHEM VUFEK5542-64-56 09:36:001.7[facility] WrztnuwUOBLZTNPMX2051-94-94 09:36:001:40 *ABN*(01/05/20 3:36 AM)[facility] TEEVVBVYJT8953-30-82 09:36:00Positive *ABN*(01/05/20 3:36 AM)[facility]annCHEM FHCFS3150-41-49 09:26:005.8[facility] HermannCHEM EGLJC7297-47-80 09:26:002.2 [facility]annCHEM DBYGF0969-14-77 09:26:0024[facility]annCHEM PANEL 2020-01-04 09:26:0028[facility] HermannCHEM NJEVS8219-92-10 09:26:79894Lawcfehs HermannCHEM CAODI6444-97-06 09:26:000.3[facility] HermannCHEM GGZPA7741-22-62 09:26:00 Test Item Value Reference Range Interpretation Comments B/C Ratio (test code = B/C Ratio) 10 1 6-25 [facility]annCHEM QSPZE0559-43-51 09:26:003.6[facility] HermannCHEM PANEL 2020-01-04 09:26:00 Test Item Value Reference Range Interpretation Comments A/G Ratio (test code = A/G Ratio) 0.6 1 0.7-1.6 [facility] EdbvtiePSPQFOTTYJ5283-26-91 09:26:008.1[facility]annHEMATOLOGY 2020-01-04 09:26:003.04[facility] YnumsppAGIYIHUFHH3127-28-20 09:26:008.8[facility] PntkqqaVDJYLMLSPV9587-27-27 09:26:0026.0[facility] NetslbtZDEEVJZJYR6387-52-41 09:26:0085.5[facility] LtowvesNCDJBQTIBD5887-41-40 09:26:00 Test Item Value Reference Range Interpretation Comments MCH (test code = MCH) 28.8 pg 27.0-31.0 [facility] PibwemuOBNZBTZFDA2018-47-04 09:26:0033.7[facility]annHEMATOLOGY 2020-01-04 09:26:0014.0[facility] HhjpfdoWJTDGICFMX9000-29-26 09:26:90109Lycezdgz DhwiralAPZVJNYFKW2337-38-67 09:26:008.4[facility] CxqamhnWITGMSFUYV5708-74-19 09:26:00 Test Item Value Reference Range Interpretation Comments PT (test code = PT) 13.9 s 12.0-14.7 [facility] JjcalgzVJUBSASKOU6772-49-18 09:26:00 Test Item Value Reference Range Interpretation Comments INR (test code = INR) 1.07 1 0.85-1.17 [facility] XyfrzqgOCYDGWIPWY5479-64-35 09:26:00 Test Item Value Reference Range Interpretation Comments PTT (test code = PTT) 31.0 s 22.9-35.8 [facility] NdsotwfGXHJQICRNL6576-95-57 09:26:0071.7[facility]annHEMATOLOGY 2020-01-04 09:26:0019.4[facility] HnfpzsvPSPAQYPUVL3897-30-77 09:26:008.8[facility] EovqzudAVDYSOPVON3519-69-24 09:26:000.1[facility] NecmyqbQWEYRIBDYD8423-42-69 09:26:005.8[facility] OlnsleaXMTXPIUEBO1399-58-19 09:26:001.6[facility] HHWQASVOPX9446-41-96 09:26:000.7[facility] AkdrqznLAVBDEUNKI5881-42-85 09:26:0046 [facility] PwetumhJTFDIJEAFA3357-11-27 09:26:0014[facility] HermannIMMUNOLOGY 2020-01-04 09:26:00Positive *ABN*(01/04/20 3:26 AM)[facility] HermannIMMUNOLOGY 2020-01-04 09:26:0045[facility] XnxfwinPQRSKIBJCF7762-97-01 09:26:0013[facility] AvtceqyHMHRQKIIGE7269-36-82 09:26:0020.4[facility] YnxnfioNKYDOBOGKQ9440-97-51 09:26:001:320 *ABN*(01/04/20 3:26 AM)[facility] TxmbjpjKLXBIBIQQU7529-48-05 09:26:000.3[facility] HbgxsudBYEDSDWAOG2888-18-34 09:26:00<0.2[facility] CCWRFTXEKJ7889-38-66 09:26:00>8.0[facility] ScolaggWEONSZXFMP2931-96-15 09:26:001.7[facility] HermannCHEM LEWZK9121-62-18 09:26:005.8[facility] HermannCHEM BPGWZ2620-26-48 09:26:002.2[facility] HermannCHEM CNTCX4592-95-68 09:26:0024 [facility] HermannCHEM LPZDU7211-14-32 09:26:0028[facility] HermannCHEM PANEL 2020-01-04 09:26:76457Vjjqdhld HermannCHEM JMHLO8688-66-35 09:26:000.3[facility] HermannCHEM DVAMA3565-09-44 09:26:00 Test Item Value Reference Range Interpretation Comments B/C Ratio (test code = B/C Ratio) 10 1 6-25 [facility] HermannCHEM AIHDD3216-26-01 09:26:003.6[facility] HermannCHEM PANEL 2020-01-04 09:26:00 Test Item Value Reference Range Interpretation Comments A/G Ratio (test code = A/G Ratio) 0.6 1 0.7-1.6 [facility] MeumcchXMFMEAGXHW8420-84-19 09:26:008.1[facility] HermannHEMATOLOGY 2020-01-04 09:26:003.04[facility] AozazlkZWDVSMBURS7629-57-40 09:26:008.8[facility] YnmietsFBKLWNAGQF2827-80-35 09:26:0026.0[facility] QfhlxklZNUVYMNLVX3252-30-21 09:26:0085.5[facility] JqthfthAYMDTGAEAK4254-36-95 09:26:00 Test Item Value Reference Range Interpretation Comments MCH (test code = MCH) 28.8 pg 27.0-31.0 [facility]ksvFJSEJLBZPU6817-40-37 09:26:0033.7[facility] HermannHEMATOLOGY 2020-01-04 09:26:0014.0[facility] SmojopyUOUBXABVCW8567-01-07 09:26:97227Fmwginyg ZojncnrBXFCOORRZB3606-91-81 09:26:008.4[facility] EyzyzufLQEHOXXBZP5410-96-24 09:26:00 Test Item Value Reference Range Interpretation Comments PT (test code = PT) 13.9 s 12.0-14.7 [facility] AllenHgwfnufDZAEOCQOIV4760-84-25 09:26:00 Test Item Value Reference Range Interpretation Comments INR (test code = INR) 1.07 1 0.85-1.17 [facility] AllenXycxruzMJJPHILVKN3079-75-27 09:26:00 Test Item Value Reference Range Interpretation Comments PTT (test code = PTT) 31.0 s 22.9-35.8 [facility] AllenAtouwnuBXSVEIABJG8315-27-12 09:26:0071.7[facility] HermannHEMATOLOGY 2020-01-04 09:26:0019.4[facility] ZtllhacKGLIDVLMPQ3230-88-64 09:26:008.8[facility] XyagjajDAEWDOVZAZ1542-29-65 09:26:000.1[facility] UkfsexlTVSJIBVMPU0882-23-67 09:26:005.8[facility] HifiofmTNAOSSYFTN9934-38-51 09:26:001.6[facility] ZKKMLHNAWM3797-98-49 09:26:000.7[facility] NyfoqguZJCTEWQKKC1924-74-33 09:26:0046 [facility] CxlflcrTMPBCAFVCY6858-20-70 09:26:0014[facility] HermannIMMUNOLOGY 2020-01-04 09:26:00Positive *ABN*(01/04/20 3:26 AM)[facility] HermannIMMUNOLOGY 2020-01-04 09:26:0045[facility] OnwaydbPONUUDMARY7199-49-01 09:26:0013[facility] TpmfugsQWPZGKVYFR8460-94-15 09:26:0020.4[facility] FlxgxmdEWCNDZZULV3814-07-61 09:26:001:320 *ABN*(01/04/20 3:26 AM)[facility] LnkgiomNGQJJPKOLH4774-75-45 09:26:000.3[facility] CviazrvSBIDFNEHSP0772-15-52 09:26:00<0.2[facility] TDVKLDMCEL2012-28-44 09:26:00>8.0[facility] PrtdwfgIUXCQLKLCZ1864-57-18 09:26:001.7[facility] HermannCHEM HRATU6938-88-05 21:45:007.3[facility] HermannCHEM CSWZL8868-64-92 21:45:002.8[facility] HermannCHEM MASRS9414-36-51 21:45:0025 [facility] HermannCHEM IKBDT8872-59-85 21:45:0043[facility] HermannCHEM PANEL 2020-01-03 21:45:94681Slyvbqpj HermannCHEM PNLDH1385-90-90 21:45:000.4[facility] HermannCHEM CVSHT4260-90-26 21:45:00 Test Item Value Reference Range Interpretation Comments B/C Ratio (test code = B/C Ratio) 10 1 6-25 [facility] HermannCHEM BPHPH1731-07-59 21:45:004.5[facility] HermannCHEM PANEL 2020-01-03 21:45:00 Test Item Value Reference Range Interpretation Comments A/G Ratio (test code = A/G Ratio) 0.6 1 0.7-1.6 [facility]annCHEM YVBKT7079-72-91 21:45:46543Lyqbwcmf HermannENDOCRINOLOGY 2020-01-03 21:45:00Negative *NA*(01/03/20 3:45 PM)[facility]annUR[facility] STOOL 2020-01-03 21:45:00Slight *ABN*(01/03/20 3:45 PM)[facility]annUR[facility] STOOL 2020-01-03 21:45:00 Test Item Value Reference Range Interpretation Comments UA Spec Grav (test code = UA Spec 1.009 1 Grav) [facility] YZFNI5785-73-88 21:45:00 Test Item Value Reference Range Interpretation Comments UA pH (test code = UA pH) 6.0 1 5.0-8.0 [facility] AND [id number] 21:45:00Negative *NA*(01/03/20 3:45 PM) [facility] GHOXA8821-02-08 21:45:00Small *ABN*(01/03/20 3:45 PM) [facility] LUGTH1823-94-30 21:45:00Negative (01/03/20 3:45 PM) [facility] PJKOR0175-62-00 21:45:00Negative (01/03/20 3:45 PM) [facility] IPFBC8906-49-66 21:45:005[facility] HGKPW0698-18-66 21:45:007[facility] WKBPR0321-93-33 21:45:007 [facility] CIKMJ5329-88-89 21:45:0050[facility]annCHE[facility] PANEL 2020-01-03 21:45:007.3[facility] QVIQU3919-97-68 21:45:002.8[facility] AKMTV4520-08-86 21:45:0025[facility] NCOYD7464-44-21 21:45:0043[facility] HUPOL7679-18-40 21:45:30831Bmykrviz HermannCHE[facility] RTSPS6785-50-36 21:45:000.4[facility] EWXMK9618-25-92 21:45:00 Test Item Value Reference Range Interpretation Comments B/C Ratio (test code = B/C Ratio) 10 1 6-25 [facility] NMYOC5066-77-84 21:45:004.5[facility]CHE[facility] PANEL 2020-01-03 21:45:00 Test Item Value Reference Range Interpretation Comments A/G Ratio (test code = A/G Ratio) 0.6 1 0.7-1.6 [facility] [id number] 21:45:71288Excaqneg HermannENDOCRINOLOGY 2020-01-03 21:45:00Negative *NA*(01/03/20 3:45 PM)[facility] 2020-01-03 21:45:00Slight *ABN*(01/03/20 3:45 PM)[facility] 2020-01-03 21:45:00 Test Item Value Reference Range Interpretation Comments UA Spec Grav (test code = UA Spec 1.009 1 Grav) [facility] [id number] 21:45:00 Test Item Value Reference Range Interpretation Comments UA pH (test code = UA pH) 6.0 1 5.0-8.0 [facility] [id number] 21:45:00Negative *NA*(01/03/20 3:45 PM) [facility] GMERP8492-55-45 21:45:00Small *ABN*(01/03/20 3:45 PM) [facility] ANGPM1842-74-61 21:45:00Negative (01/03/20 3:45 PM) [facility] [id number] 21:45:00Negative (2/24/20 3:45 PM) [facility] ESMXV0581-69-97 21:45:005[facility] HDMDK6006-18-54 21:45:007[facility] DXDQW0640-86-86 21:45:007 [facility] RPORK7412-65-69 21:45:0050[facility]annCHEM PANEL 2019-10-29 09:29:72700Lwqoejzd HermannCHEM ZWCDV3006-33-98 09:29:0032[facility] GYXKM5134-74-46 09:29:001.77[facility] CGEXW9685-95-96 09:29:53751Dezpvrun HermannCHEM FYMVM9138-87-35 09:29:004.4[facility] TEBKT3516-33-87 09:29:06838Zdfybptu HermannCHEM KJSRP4260-76-15 09:29:0025 [facility] OSMHH3820-13-48 09:29:008.2[facility]annCHE[facility] PANEL 2019-10-29 09:29:0044[facility]CHE[facility] DQGIR5315-39-37 09:29:0010.4[facility] TbyhhnkOXUKKAMOCT5776-66-47 09:29:0085.2[facility] MzcafwbULGUTQXETI5097-81-41 09:29:0010.7[facility] GcklrtpIIFBVYRJTC9002-62-20 09:29:003.8[facility] QNHSSFIOYV7405-36-10 09:29:000.1[facility] SzfrmwoZYHDNQPWFS4198-20-38 09:29:000.2 [facility] RyyvzisMSLPOKWFZT7255-04-43 09:29:006.0[facility]annHEMATOLOGY 2019-10-29 09:29:000.7[facility] NnhmoulNCCHLLZLYE8933-71-47 09:29:000.3[facility] GjfuabmFSKUQDDQWS4835-65-29 09:29:007.0[facility] EvfvlcrJGUNTZDPPY9009-47-33 09:29:003.23[facility] CriffsaIJLTHBMHEM1155-34-19 09:29:009.5[facility] PIBQOAEYLI7423-98-78 09:29:0028.1[facility] ShhfccwKLYFICGSTZ2645-16-90 09:29:00 86.9[facility] ZmjjmrkVYFQKUOWRD2183-99-12 09:29:00 Test Item Value Reference Range Interpretation Comments MCH (test code = MCH) 29.5 pg 27.0-31.0 [facility] PphtiszSETERYGMXD0412-99-37 09:29:0034.0[facility]annHEMATOLOGY 2019-10-29 09:29:0015.1[facility] EnnaxatWIEVXMYUFD1361-03-96 09:29:01051Yazlmeqq VydrtujPVXVEYENSE1249-10-98 09:29:008.4[facility]annCHE[facility] JIBFE8503-96-81 09:29:96121Ixpxzqar HermannCHEM DXEFC7031-43-90 09:29:0032[facility]annCHE[facility] XZALU8355-26-95 09:29:001.77[facility]CHE[facility] VEQJO0783-72-33 09:29:50833 [facility] CFTBY0307-96-87 09:29:004.4[facility]annCHEM PANEL 2019-10-29 09:29:13763Zyxqrfko HermannCHEM DMDWJ1272-38-93 09:29:0025[facility]CHE[facility] XGTRE7834-46-67 09:29:008.2[facility]annCHE[facility] BHKAF8811-34-93 09:29:0044[facility] NSPNU0003-37-76 09:29:0010.4[facility] GQTTRFIHUX4840-01-16 09:29:0085.2[facility] FehrxhzEHZHVNHKEM2663-05-52 09:29:00 10.7[facility] AamanbfZYAVCCVYPF1688-90-79 09:29:003.8[facility]annHEMATOLOGY 2019-10-29 09:29:000.1[facility] OzufcgbJMBWDPBLJH8505-42-24 09:29:000.2[facility] VllhonmDVNRPJEFKV1117-84-53 09:29:006.0[facility] EcxrjsbAEKNMYJOOX6923-34-55 09:29:000.7[facility] CwxlaenANBJDZYQKZ4574-55-23 09:29:000.3[facility] KNZKITXFYT6081-80-82 09:29:007.0[facility] HxqgyycJCPFCTNSQU2536-95-86 09:29:00 3.23[facility] PfsruzuYLVKOBZWQO3594-28-54 09:29:009.5[facility]annHEMATOLOGY 2019-10-29 09:29:0028.1[facility] KtdzmlhYUGCUAELUY4909-74-20 09:29:0086.9[facility] FrrklieIHWGNGWTLA2226-92-19 09:29:00 Test Item Value Reference Range Interpretation Comments MCH (test code = MCH) 29.5 pg 27.0-31.0 [facility] NaknoyuCYSUNFVLHL0300-98-73 09:29:0034.0[facility]annHEMATOLOGY 2019-10-29 09:29:0015.1[facility] OmcamwzPMTGMNDCXX6518-88-96 09:29:78451Jshhacsw QniwbddHMZAAHRLDB6411-84-55 09:29:008.4[facility]annCHEM RIULV1984-06-18 09:12:002.0[facility] FutcsjhRPJRREAUGIDH7603-23-60 09:12:0012.6[facility] XCWLSLHNENTT7390-50-97 09:12:06473Fiwnqynt HcskretPNLAUVOLLNEI8077-71-20 09:12:0036[facility] MikjtyxDOSVLWPSVBJA3420-48-00 09:12:002.17[facility] BFVFVYLHHVDJ6998-45-37 09:12:58687Fzoexhef KfbvkukOBMPYHIDYGNJ4315-15-99 09:12:004.6[facility] ZqzumbyMCLXPYEOHQEB8277-95-93 09:12:76083Fvkjnufk [place] GLFJPSFMRIDE8050-04-84 09:12:0024[facility] OwpjcqcIOJUZZZKLJCW5684-36-86 09:12:00 8.2[facility] AsjixmrBNBBUZGAEHAM8743-57-71 09:12:0035[facility]annHEMATOLOGY 2019-10-28 09:12:006.3[facility] KdqhswxIBYRUEGHTA4151-98-85 09:12:003.28[facility] QrxplbaPFKCLSWHIW4468-24-99 09:12:009.7[facility] QsgwpxpOPQFFMYBSK3920-56-79 09:12:0028.6[facility] GdvqwuqUJFEZBWAPT1957-39-58 09:12:0087.1[facility] WRZQCILFGY1869-56-18 09:12:00 Test Item Value Reference Range Interpretation Comments MCH (test code = MCH) 29.5 pg 27.0-31.0 [facility] RqnbgttVGXEPDXQLE6293-44-73 09:12:0033.9[facility]annHEMATOLOGY 2019-10-28 09:12:0014.8[facility] FazfpzbSECJLVMVCV6186-34-13 09:12:22759Exderdig KomnkvxBRTRZDUVOM0151-81-60 09:12:008.7[facility] DftrwevLNRTEVLZYO0934-73-17 09:12:0078.5[facility] EemvjvgCHDGDEBLGZ9931-18-32 09:12:0013.4[facility] OBDFGDEIRU9576-89-33 09:12:007.8[facility] WvuvssfJFYZLBRUMV6344-60-26 09:12:000.1 [facility] CebbbqlQIIKUSUCCN5314-56-69 09:12:000.2[facility]annHEMATOLOGY 2019-10-28 09:12:005.0[facility] PegjqscHNVMUOEOAS0364-67-47 09:12:000.9[facility] FpxzcseHVAGCXLXZY0271-17-58 09:12:000.5[facility] HermannCHEM EVAWC8795-58-52 09:12:002.0[facility] EyfyxyaIDPQNOONEAHW0743-95-28 09:12:0012.6[facility] ZNHXVVFSIKVE4492-93-54 09:12:54903Ajvlmbgg SyelykfNFQPTYBSDRXF9854-26-12 09:12:0036[facility] WjghwxjURCRITTUNIMN5602-19-04 09:12:002.17[facility] VVFICBGLXZCJ9525-59-81 09:12:07971Sssfhooj YpatrloSWVGMFGUYCUU9353-43-68 09:12:004.6[facility] TsasnwpFMCTMYIYLICU8709-26-88 09:12:97682Qwbpeghc [place] OKLPNDJUKXZY9324-00-67 09:12:0024[facility] ClttxfcBKWWZVLHQCIK9829-05-60 09:12:00 8.2[facility] PpkcgavHDUQKWFRTRID1557-91-73 09:12:0035[facility]annHEMATOLOGY 2019-10-28 09:12:006.3[facility] IwqhuqhVOYCMKFTCU4206-45-91 09:12:003.28[facility] LdidyieMLXCEFRWXD8536-02-27 09:12:009.7[facility] JcpvhkgFRHCVZHABI4737-31-50 09:12:0028.6[facility] QpydlefSQXOJHPDBO7511-71-01 09:12:0087.1[facility] TACVYNWPFT9559-97-51 09:12:00 Test Item Value Reference Range Interpretation Comments MCH (test code = MCH) 29.5 pg 27.0-31.0 [facility] FrmpupuRKEZZDRCOD1317-09-68 09:12:0033.9[facility]annHEMATOLOGY 2019-10-28 09:12:0014.8[facility] PtzqkqvFQEGKWPQHV0750-11-63 09:12:19904Wbogyeic ZniaedvVZANSMEXUH1821-09-40 09:12:008.7[facility] SfuxohbMUGVCRXKJR8657-36-20 09:12:0078.5[facility] MnjptklRVMAJFYZGB6894-68-31 09:12:0013.4[facility] IEYRCZIKVQ7730-67-14 09:12:007.8[facility] CdmrzxmTWRJUWDJOB3235-01-49 09:12:000.1 [facility] HnyxttmDQPMYTZFCA7879-85-07 09:12:000.2[facility]annHEMATOLOGY 2019-10-28 09:12:005.0[facility] AdpygvjOLJQIISYZT2900-31-71 09:12:000.9[facility] HiwephyXVYYMYCMKV4917-71-61 09:12:000.5[facility] HermannCHEM TTKIO8272-34-81 09:20:002.0[facility] HermannCHEM ELNYQ2313-68-83 09:20:005.3[facility] BMONNHPAJZON9107-50-33 09:20:0013.8[facility] KfcxgynLLWYQLKQIYFF2543-73-72 09:20:77878Jiarccwn EtsyaqdHUGDPIRIPLRV8285-70-03 09:20:0035[facility] [place] RGIAKHCWOGMD0959-38-26 09:20:002.02[facility] UtmgfkwAUVSDPXFDZWK8856-10-22 09:20:01776Cwtmwywy WthbbpgPFYBFFHNCYFH5695-54-33 09:20:004.8[facility] DTTIEPVSQCED0083-36-56 09:20:12686Oaeqvafm VvrmnulUPCTGDUBWFDN8657-40-36 09:20:0024[facility] UpatkfiBTKTHOUUVHOI7088-56-04 09:20:008.3[facility] [place] YTAOHQXGFJNE8416-82-75 09:20:0038[facility] NtztiwtKFDPVSKTEJ8641-98-13 09:20:00 4.5[facility] ThlkilsTDGWTCYFCU2609-49-29 09:20:003.69[facility]annHEMATOLOGY 2019-10-27 09:20:0010.8[facility] YgyrlggBWJEPVIOGU4288-64-10 09:20:0031.9[facility] ZkitezfQNMZUNSPYL9430-07-82 09:20:0086.5[facility] MfvahqwNKUQAYPZNR7023-03-50 09:20:00 Test Item Value Reference Range Interpretation Comments MCH (test code = MCH) 29.3 pg 27.0-31.0 [facility] GqpasxhGNJVRNZEFN1655-80-99 09:20:0033.8[facility]annHEMATOLOGY 2019-10-27 09:20:0015.1[facility] IfmnewfYJQCQZCNNS6406-92-08 09:20:02682Lkcrcgrc UskhjihJVNSQWQNXI5880-66-61 09:20:008.2[facility] NrcgbqaUOVGQZINWO0279-51-12 09:20:0059.0[facility] HkxenwwADYPEQCQEL4662-42-38 09:20:0027.5[facility] [place] AUHYFWQKRP6162-05-41 09:20:0013.1[facility] LbpfnuiZYFRQKWUAT4354-06-92 09:20:00 0.2[facility] FtfdwacJMAIEOISCM2199-12-58 09:20:000.2[facility]annHEMATOLOGY 2019-10-27 09:20:002.7[facility] TcvhzymMCYTVBZDYL0071-05-17 09:20:001.2[facility] OearacgUTNVLLJNVC9940-19-23 09:20:000.6[facility] HermannCHEM ZVYEZ4073-86-41 09:20:002.0[facility] HermannCHEM QPWBH0476-01-32 09:20:005.3[facility] [place] WBXKKGSKRFVG7500-39-85 09:20:0013.8[facility] ZkagnihOSEQHXTKYERQ0906-33-98 09:20:62300Ffppgqhd IkfgjlfJFOBDOCPGPVL2273-67-23 09:20:0035[facility] NWEQPHRVAHUG3265-04-47 09:20:002.02[facility] QezjdzrEAUCMJAVUHBA0858-26-16 09:20:33969Cfphhgru SpgepykWAGPWOMRREGC8852-39-57 09:20:004.8[facility] YFKMPWUSBJDP1508-56-03 09:20:15339Jgjrspzn DvmdeeoFCLHCDQPMEHR4523-76-22 09:20:0024[facility] UcuozrbXDDOPXEMIDWA9451-92-37 09:20:008.3[facility] [place] ZAAKAEPVSYPQ3117-10-99 09:20:0038[facility] UbkhbquILYJXUVECA0537-79-40 09:20:00 4.5[facility] SjshzvpQWATLXJBTM1878-07-30 09:20:003.69[facility]annHEMATOLOGY 2019-10-27 09:20:0010.8[facility] AfdrqnxGPVYXLTSJV9066-23-26 09:20:0031.9[facility] ZnbwbvhYCHGZUXQVT8338-89-96 09:20:0086.5[facility] UgcvuegPNPMWENPRJ4316-66-73 09:20:00 Test Item Value Reference Range Interpretation Comments MCH (test code = MCH) 29.3 pg 27.0-31.0 [facility] VgfessyGHRQVTTWGE3628-79-14 09:20:0033.8[facility]annHEMATOLOGY 2019-10-27 09:20:0015.1[facility] MjnakqxWMSYHFDLHZ4987-63-56 09:20:81591Ymbhifmx GzpshloVFIHWFEJRI3866-99-85 09:20:008.2[facility] VnyvbrePVSBILBKZD0354-19-78 09:20:0059.0[facility] PlwmvbuCVVSNWOBTK2997-04-53 09:20:0027.5[facility] [place] QHRTTVGACT0796-73-27 09:20:0013.1[facility] ClnanvtISRZKBHBVT5502-26-24 09:20:00 0.2[facility] ApylunoYJKYJSEWWM4292-71-17 09:20:000.2[facility] HermannHEMATOLOGY 2019-10-27 09:20:002.7[facility] DnalgdgYFZGPGOLHE3819-28-54 09:20:001.2[facility] OybnlbuMDTITVQSRJ8898-60-15 09:20:000.6[facility]annUR[facility] AND OEKAZ2237-86-72 13:36:00Yellow *NA*(10/26/19 7:36 AM)[facility] XWAGL4222-84-30 13:36:00Slight *ABN*(10/26/19 7:36 AM)[facility] TYADW6513-17-84 13:36:00 Test Item Value Reference Range Interpretation Comments UA Spec Grav (test code = UA Spec 1.031 1 Grav) [facility] XDREU5693-40-10 13:36:00 Test Item Value Reference Range Interpretation Comments UA pH (test code = UA pH) 5.0 1 5.0-8.0 [facility] CWNFC8847-51-32 13:36:00Negative *NA*(10/26/19 7:36 AM)[facility] NEFLL9547-50-06 13:36:00Small *ABN*(10/26/19 7:36 AM)[facility] MPBNH8603-07-92 13:36:00Negative (10/26/19 7:36 AM) [facility] EIZPL1603-79-88 13:36:00Trace *ABN*(10/26/19 7:36 AM) [facility] LDFOZ9483-78-82 13:36:0019[facility] MFZNW0342-31-68 13:36:008[facility] EINS3629-12-88 13:36:00Negative (10/26/19 7:36 AM)[facility] WDBOP8443-91-93 13:36:00Yellow *NA*(10/26/19 7:36 AM)[facility] VQUPJ1410-45-00 13:36:00Slight *ABN*(10/26/19 7:36 AM)[facility] NTTEM7343-16-38 13:36:00 Test Item Value Reference Range Interpretation Comments UA Spec Grav (test code = UA Spec 1.031 1 Grav) [facility] VJLSK7928-84-98 13:36:00 Test Item Value Reference Range Interpretation Comments UA pH (test code = UA pH) 5.0 1 5.0-8.0 [facility] PJRPC6365-28-43 13:36:00Negative *NA*(10/26/19 7:36 AM)[facility] XRGVP7693-18-36 13:36:00Small *ABN*(10/26/19 7:36 AM)[facility] ZWKPB7134-78-62 13:36:00Negative (10/26/19 7:36 AM) [facility] BFEDK4035-30-10 13:36:00Trace *ABN*(10/26/19 7:36 AM) [facility] SYNDZ2352-64-13 13:36:0019[facility] FNDUY7268-85-89 13:36:008[facility] PHMP7249-05-23 13:36:00Negative (10/26/19 7:36 AM)[facility]annCHEM RLRXO0751-79-17 12:36:006.2[facility]annCHEM ZJZOX6702-68-72 12:36:0031[facility]annCHEM RIIBY6726-61-80 12:36:0080[facility]annCHEM MAYWY4137-86-57 12:36:000.3[facility]annCHEM GPWRJ9989-73-26 12:36:00 Test Item Value Reference Range Interpretation Comments B/C Ratio (test code = B/C Ratio) 16 1 - [facility]annCHEM SFLSM3946-67-29 12:36:002.5[facility]annCHEM PANEL 2019-10-26 12:36:003.7[facility]annCHEM EVZRK0071-78-04 12:36:00 Test Item Value Reference Range Interpretation Comments A/G Ratio (test code = A/G Ratio) 0.7 1 0.7-1.6 [facility]annCHE[facility] EMEON8171-78-16 12:36:0024[facility]annCHEM PANEL 2019-10-26 12:36:002.1[facility] UycuyqcKSLFQLCHQQ6464-32-69 12:36:0035[facility] PxquykoLDHIJXQOYZ9732-53-03 12:36:008[facility] VybtmhqUFXQHTHGNX4182-05-44 12:36:00<2.9[facility] XwdyknxTRTODNVPTI6004-59-26 12:36:00<0.2[facility] YohneenEMSWGGMPJC8322-19-67 12:36:001.0[facility] QsramqmEGDTVOVRUA7672-11-76 12:36:00>8.0[facility] DdkydboYCQWOSAEEM4988-25-34 12:36:00>8.0[facility]annCHEM VCVCK8058-72-05 12:36:006.2[facility]annCHEM HHGGV0232-37-21 12:36:0031[facility]annCHEM LDJRR1958-83-31 12:36:0080[facility]annCHEM ASYCN1329-31-87 12:36:000.3[facility]annCHEM ZMERS6690-05-45 12:36:00 Test Item Value Reference Range Interpretation Comments B/C Ratio (test code = B/C Ratio) 16 1 - [facility]annCHE[facility] UEYPC0891-18-03 12:36:002.5[facility]annCHEM PANEL 2019-10-26 12:36:003.7[facility]annCHEM OVLQQ3782-55-71 12:36:00 Test Item Value Reference Range Interpretation Comments A/G Ratio (test code = A/G Ratio) 0.7 1 0.7-1.6 [facility] KLIVI7202-37-16 12:36:0024[facility]annCHEM PANEL 2019-10-26 12:36:002.1[facility] NzgeslpBSLSRKALUM5336-00-99 12:36:0035[facility] RnrbvgbOQJTKBUVIL9022-47-85 12:36:008[facility] LwtiagcDFMHRRIPMJ8761-06-66 12:36:00<2.9[facility] TpwmhqcFXTYTEKMNG9263-01-89 12:36:00<0.2[facility] KopkfbvTISNADLRVX1578-87-34 12:36:001.0[facility] XrykdzwPKUCFXIXOH3987-57-75 12:36:00>8.0[facility] HqskhzqVTBIMBPFMA6758-60-83 12:36:00>8.0[facility] HermannCHEM GQSEB6164-48-73 10:48:000.7[facility] FhrczrxKDTGJDXIGN4738-50-06 10:48:00 Test Item Value Reference Range Interpretation Comments INR (test code = INR) 0.93 1 0.85-1.17 [facility]WR[facility] 10:48:00 Test Item Value Reference Range Interpretation Comments PT (test code = PT) 12.3 s 12.0-14.7 [facility]rdmkhrEPAITMPMKK8719-18-54 10:48:00 Test Item Value Reference Range Interpretation Comments PTT (test code = PTT) 22.8 s 22.9-35.8 [facility] AllenLzinfwgJQJKTVSAKF0295-01-91 10:48:0037[facility] HermannIMMUNOLOGY 2019-10-26 10:48:00Positive *ABN*(10/26/19 4:48 AM)[facility] HermannIMMUNOLOGY 2019-10-26 10:48:00Positive *ABN*(10/26/19 4:48 AM)[facility]annIMMUNOLOGY 2019-10-26 10:48:001:80 *ABN*(10/26/19 4:48 AM)[facility]annIMMUNOLOGY 2019-10-26 10:48:001:640 *ABN*(10/26/19 4:48 AM)[facility]annCHEM PANEL 2019-10-26 10:48:000.7[facility] LekyqojRFQFQXBRHB9063-33-04 10:48:00 Test Item Value Reference Range Interpretation Comments INR (test code = INR) 0.93 1 0.85-1.17 [facility] AllenFdqnnnuWPXASKZSEW5188-35-31 10:48:00 Test Item Value Reference Range Interpretation Comments PT (test code = PT) 12.3 s 12.0-14.7 [facility] BwwzwvyAKXLZRJJTY1139-43-82 10:48:00 Test Item Value Reference Range Interpretation Comments PTT (test code = PTT) 22.8 s 22.9-35.8 [facility] AllenVpcvqynEMUCNLGOGI7008-09-93 10:48:0037[facility] HermannIMMUNOLOGY 2019-10-26 10:48:00Positive *ABN*(10/26/19 4:48 AM)[facility]annIMMUNOLOGY 2019-10-26 10:48:00Positive *ABN*(10/26/19 4:48 AM)[facility] HermannIMMUNOLOGY 2019-10-26 10:48:001:80 *ABN*(10/26/19 4:48 AM)[facility]annIMMUNOLOGY 2019-10-26 10:48:001:640 *ABN*(10/26/19 4:48 AM)[facility] HermannCHEM PANEL 2019-10-26 08:21:000.3[facility] HermannCHEM WSLPD4633-05-75 08:21:000.3[facility]annCHEM LPPBW6484-01-16 02:26:00 Test Item Value Reference Range Interpretation Comments B/C Ratio (test code = B/C Ratio) 20 1 6-25 [facility]annCHEM LMVSU1360-68-70 02:26:004.4[facility] HermannCHEM PANEL 2019-10-26 02:26:00 Test Item Value Reference Range Interpretation Comments A/G Ratio (test code = A/G Ratio) 0.6 1 0.7-1.6 [facility]annCHEM HUENF0126-26-78 02:26:007.2[facility] HermannCHEM PANEL 2019-10-26 02:26:002.8[facility]annCHEM TPFJD8846-85-12 02:26:0026[facility]annCHEM CUYNB0334-15-51 02:26:0031[facility]annCHEM XTVOP9113-14-13 02:26:0076[facility]annCHEM UMEUZ1412-54-60 02:26:000.2[facility]annCHEM AZSEX1689-67-07 02:26:01337Scmxopbu XqwmbkdYIGDWJZQSPGCH5873-33-33 02:26:00 Negative *NA*(10/25/19 8:26 PM)[facility] MWKWU8145-35-07 02:26:00Yellow *NA*(10/25/19 8:26 PM)[facility] VJGNU0930-07-18 02:26:00Slight *ABN*(10/25/19 8:26 PM)[facility] NOKPR6880-21-16 02:26:00 Test Item Value Reference Range Interpretation Comments UA Spec Grav (test code = UA Spec 1.009 1 Grav) [facility] CQPLV1413-19-15 02:26:00 Test Item Value Reference Range Interpretation Comments UA pH (test code = UA pH) 6.0 1 5.0-8.0 [facility] PXVSW8083-26-80 02:26:00Negative *NA*(10/25/19 8:26 PM)[facility] WKGMO3133-59-22 02:26:00Small *ABN*(10/25/19 8:26 PM)[facility] XXGTK8750-85-81 02:26:00Negative (10/25/19 8:26 PM) [facility] WENRK1040-68-44 02:26:00Trace *ABN*(10/25/19 8:26 PM) [facility] RBPIR6461-95-35 02:26:0014[facility] FCJED0620-71-82 02:26:0011[facility] AOTZ6915-84-02 02:26:0093.50 [facility] CYIF1481-44-82 02:26:20190.5[facility] CHEM 2019-10-26 02:26:00 Test Item Value Reference Range Interpretation Comments U Prot/Creat (test code = U 2.83 1 Prot/Creat) [facility] FJEE2632-96-02 02:26:36817Vafaxdmy HermannURINE CHEM 2019-10-26 02:26:0076[facility] LADK1747-11-21 02:26:0051.6[facility] AFCP5110-77-15 02:26:0095[facility] HermannCHEM ZVIMW5244-17-92 02:26:00 Test Item Value Reference Range Interpretation Comments B/C Ratio (test code = B/C Ratio) 20 1 6-25 [facility]annCHEM MXRLA8658-35-47 02:26:004.4[facility]annCHEM PANEL 2019-10-26 02:26:00 Test Item Value Reference Range Interpretation Comments A/G Ratio (test code = A/G Ratio) 0.6 1 0.7-1.6 [facility]annCHE[facility] RPWEB9526-02-79 02:26:007.2[facility]annCHEM PANEL 2019-10-26 02:26:002.8[facility]annCHEM QUMBP7785-18-63 02:26:0026[facility]annCHEM RDBEN8587-67-06 02:26:0031[facility]annCHEM IHHLH9610-91-21 02:26:0076[facility]annCHEM FTUAB8227-32-27 02:26:000.2[facility]annCHEM SOXPR1354-07-97 02:26:94457Aovwqori CjzbivtMKDWFQDJSRNFE7152-19-78 02:26:00 Negative *NA*(10/25/19 8:26 PM)[facility] BJAQD9850-18-68 02:26:00Yellow *NA*(10/25/19 8:26 PM)[facility] LOHNQ3227-01-23 02:26:00Slight *ABN*(10/25/19 8:26 PM)[facility] CSFPR3286-02-68 02:26:00 Test Item Value Reference Range Interpretation Comments UA Spec Grav (test code = UA Spec 1.009 1 Grav) [facility] EIBWS7489-57-64 02:26:00 Test Item Value Reference Range Interpretation Comments UA pH (test code = UA pH) 6.0 1 5.0-8.0 [facility] SNYKF0756-96-86 02:26:00Negative *NA*(10/25/19 8:26 PM)[facility] CMRZC0791-58-03 02:26:00Small *ABN*(10/25/19 8:26 PM)[facility] BQOSR2427-19-48 02:26:00Negative (10/25/19 8:26 PM) [facility] SLXJG3552-77-09 02:26:00Trace *ABN*(10/25/19 8:26 PM) [facility] QHLBX1289-59-60 02:26:0014[facility] AND CPKNF6707-14-50 02:26:0011[facility] JLRV3942-80-37 02:26:0093.50 [facility] SDEG3041-33-82 02:26:22739.5[facility] CHEM 2019-10-26 02:26:00 Test Item Value Reference Range Interpretation Comments U Prot/Creat (test code = U 2.83 1 Prot/Creat) [facility] MYNR0832-97-46 02:26:25074Bkattlyw HermannURINE CHEM 2019-10-26 02:26:0076[facility] AZMJ3361-56-05 02:26:0051.6[facility] CXVC0426-84-37 02:26:0095[facility]] RENAL FUNCTION PANEL W/CUTA4063-71-87 10:39:00 Test Item Value Reference Range Interpretation Comments GLUCOSE; Normal 105 mg/dl 65-139 N Non-fasting (test code = 1547-9) referen ce interval UREA NITROGEN (BUN) 48 mg/dl 7-25 (test code = UREA NITROGEN (BUN)) CREATININE (test 1.65 mg/dl 0.50-1.10 code = CREATININE) eGFR NON- 42 {ML/MIN/1.7} > OR = 60 EQUATORIAL GUINEAN (test code = eGFR NON-) eGFR 48 {ML/MIN/1.7} > OR = 60 EQUATORIAL GUINEAN (test code = eGFR ) BUN/CREATININE RATIO 29 {CALC} 6-22 (test code = BUN/CREATININE RATIO) SODIUM (test code = 140 mmol/L 135-146 N SODIUM) POTASSIUM (test code 4.5 mmol/L 3.5-5.3 N = POTASSIUM) CHLORIDE (test code 108 mmol/L 98-110 N = CHLORIDE) CARBON DIOXIDE (test 27 mmol/L 20-32 N code = CARBON DIOXIDE) CALCIUM (test code = 8.3 mg/dl 8.6-10.2 CALCIUM) PHOSPHATE ( 3.3 mg/dl 2.5-4.5 N PHOSPHORUS) (test code = PHOSPHATE ( PHOSPHORUS)) ALBUMIN (test code = 2.8 g/dl 3.6-5.1 ALBUMIN) [facility][QLH] URINALYSIS, COMPLETE W/REFLEX TO [id number] 10:39:00 Test Item Value Reference Range Interpretation Comments COLOR; Normal (test code = 5778-6) YELLOW YELLOW N APPEARANCE (test code = CLEAR CLEAR N APPEARANCE) SPECIFIC GRAVITY; Normal (test 1.016 1.001-1.035 N code = 2965-2) PH; Normal (test code = 2756-5) < OR = 5.0 5.0-8.0 N GLUCOSE; Normal (test code = NEGATIVE NEGATIVE N 1547-9) BILIRUBIN; Normal (test code = NEGATIVE NEGATIVE N 63305-6) KETONES; Normal (test code = NEGATIVE NEGATIVE N 63332-3) OCCULT BLOOD; Abnormal (test code TRACE NEGATIVE A = 43146-0) PROTEIN; Abnormal (test code = 2+ NEGATIVE A 69540-4) NITRITE (test code = NITRITE) NEGATIVE NEGATIVE N LEUKOCYTE ESTERASE (test code = 2+ NEGATIVE A LEUKOCYTE ESTERASE) WBC; Abnormal (test code = 6690-2) > OR = 60 < OR = 5 A RBC; Normal (test code = 789-8) 0-2 < OR = 2 N SQUAMOUS EPITHELIAL CELLS (test 0-5 < OR = 5 code = 60338-9) BACTERIA; Normal (test code = NONE SEEN NONE SEEN N 630-4) HYALINE CAST; Normal (test code = NONE SEEN NONE SEEN N 11279-5) [facility][Q] REFLEXIVE URINE [id number] 10:39:00 Test Item Value Reference Range Interpretation Comments REFLEXIVE URINE CULTURE CULTURE INDICATED - (test code = REFLEXIVE RESULTS TO FOLLOW URINE CULTURE) [facility][QH] PROTEIN, TOTAL W/CREAT, RANDOM [id number] 10:39:00 Test Item Value Reference Range Interpretation Comments CREATININE, RANDOM URINE 89 mg/dl 20-275 N (test code = CREATININE, RANDOM URINE) PROTEIN/CREATININE RATIO 1.596 {mg/mg crea} 0.021-0.161 (test code = PROTEIN/CREATININE RATIO) PROTEIN, TOTAL, RANDOM UR 142 mg/dl 5-24 (test code = PROTEIN, TOTAL, RANDOM UR) [facility][QLH] CULTURE, URINE, [id number] 10:39:00 Test Item Value Reference Range Interpretation Comments CULTURE (test code = See Comment CULTURE , URINE, CULTURE) ROUTINE Micro N umber: [id number] Test S tatus: Final Specimen Source: URINE Specimen Qualit y: Adequate Result : No Growth [facility]ARDIAC IZQSBHR7695-27-63 02:27:00<0.02[facility]annCHEM VBJMZ6507-27-23 02:27:98217Lflkcyvg HermannCHEM ZEBKV6696-08-65 02:27:0054 [facility]annCHEM DBZTH3382-67-94 02:27:001.69[facility] HermannCHEM PANEL 2019-10-06 02:27:36968Fpeldksc HermannCHEM DHQXE8775-27-92 02:27:005.0[facility] HermannCHEM BMSHP8435-77-43 02:27:39014Cybebgqi HermannCHEM GKRNZ3408-64-45 02:27:0025[facility] HermannCHEM PWHYA3170-91-69 02:27:0013.0[facility] HermannCHEM NVCAR4530-71-53 02:27:008.8[facility] HermannCHEM OCOET9526-40-29 02:27:0047 [facility] WatbfhdVKBZECAOJFEVP1349-64-08 02:27:00Negative *NA*(10/05/19 8:27 PM) [facility] DddcjsgJUJVUUSSCP5604-83-21 02:27:004.1[facility]annHEMATOLOGY 2019-10-06 02:27:003.67[facility] UunqobmALSQKSKQGQ1528-74-01 02:27:0010.7[facility] GlranxdBQYXLSDCHK8051-57-81 02:27:0031.5[facility] YjwzavrZQNNZOPEZG7779-66-61 02:27:0085.6[facility] KriyvhxOKYDIXNSDS6664-65-09 02:27:00 Test Item Value Reference Range Interpretation Comments MCH (test code = MCH) 29.0 pg 27.0-31.0 [facility] EtwonjpUPHNXXUOXL9178-48-63 02:27:0033.9[facility]annHEMATOLOGY 2019-10-06 02:27:0013.5[facility] NzsxlopZEFRUXXHKC1665-17-35 02:27:00337Rjzlmlmg WfgantmMZNFENOYKN8424-95-44 02:27:008.2[facility] CujsnsdBEWAJCPMKS8752-68-06 02:27:0072.1[facility] UvkhracAHXMZBHLAL5313-21-25 02:27:0021.5[facility] XWNZWROJHB8400-37-89 02:27:005.8[facility] BaewtbrAXJUKNNTCK6975-42-35 02:27:000.6 [facility] SmeswaxMHGTNGVUFI6570-65-15 02:27:002.9[facility]annHEMATOLOGY 2019-10-06 02:27:000.9[facility] SvfcsyjWJXYYGJPPT5929-26-48 02:27:000.2[facility] HermannCARDIAC JWYIOPU1249-38-63 02:27:00<0.02[facility]annCHEM PANEL 2019-10-06 02:27:42739Dhmpgqqy HermannCHEM GTWAD5943-83-75 02:27:0054[facility]annCHEM OJOQN3347-69-52 02:27:001.69[facility]annCHEM GKJPN6661-57-94 02:27:40679Hjitnvki HermannCHEM LOSYA2886-61-26 02:27:005.0[facility]annCHEM IVRTY3135-03-22 02:27:48396Ndfojhby HermannCHEM THSRK6600-05-53 02:27:0025 [facility]CHE[facility] EOCMJ1024-30-96 02:27:0013.0[facility]annCHEM PANEL 2019-10-06 02:27:008.8[facility]annCHEM QXNGB1498-29-36 02:27:0047[facility] YeaxbqeDIPWRMRIWSSVQ1348-27-87 02:27:00Negative *NA*(10/05/19 8:27 PM)[facility] RoyvfnyAAVBSSWZUZ2655-77-56 02:27:004.1[facility] WjzqypnBUESAUWXQT6514-25-97 02:27:003.67[facility] RlwxxiwQUXNTFXZPM2032-04-61 02:27:0010.7[facility] [place] WKZWFTMESE6730-12-69 02:27:0031.5[facility] LkivgusNGVYLRMGWV1790-79-39 02:27:00 85.6[facility] IxhvyvpATYCPIPHLW3244-19-98 02:27:00 Test Item Value Reference Range Interpretation Comments MCH (test code = MCH) 29.0 pg 27.0-31.0 [facility] CeotxsxZOXDWCANDC5521-27-43 02:27:0033.9[facility]annHEMATOLOGY 2019-10-06 02:27:0013.5[facility] DqequgaSCXRTRZAJR8773-23-39 02:27:22201Xrccueqo CvjnkfcSOTONIQGPM9668-54-37 02:27:008.2[facility] EnsmwzeDZYDBHEOJF9549-84-84 02:27:0072.1[facility] WohecqbHMQBJTVPBF4177-50-12 02:27:0021.5[facility] GHRVQMALZA5419-12-25 02:27:005.8[facility] SabkqbsBXHIKLBQLT0123-35-67 02:27:000.6 [facility] QxrmqmiAOXMRGQUOW6191-66-55 02:27:002.9[facility]annHEMATOLOGY 2019-10-06 02:27:000.9[facility] AzlacchVEOOHKHDMF4641-33-52 02:27:000.2[facility][O] Urine Test (in office)2019-10-01 08:58:00 Test Item Value Reference Range Interpretation Comments Test, Urine; Normal (test neg N code = 2106-3) [facility][QLH] LAUREL PANEL, ZNFCGVDLLDCAY0227-50-38 14:27:00 Test Item Value Reference Range Interpretation Comments LAUREL SCREEN, IFA POSITIVE NEGATIVE A LAUREL IFA is a first line (test code = LAUREL screen for detecting SCREEN, IFA) thepresence of up to approximately 1 50 autoantibodies invarious autoimmune dise ases. A positive LAUREL IF A resultis suggestive of a utoimmune disease and ref lexes totiter and pat tern. Further laborat ory testing may bec onsidered if clinically i ndicated. For additional information, pl ease refer [email or web address] ion.[email or web address]/ faq/QGM474 (This link is b eing provided for informational/e ducational purposes only.) DNA (DS) ANTIBODY >37755 IU/mL Inte rpretation < (test code = DNA or = 4 Nega tive 5-9 (DS) ANTIBODY) Indeterminate > or = 10 Positive SCL-70 ANTIBODY 1.8 POS <1.0 NEG A (test code = SCL-70 ANTIBODY) SM ANTIBODY (test >8.0 POS <1.0 NEG A code = SM ANTIBODY) SM/[employer]ER ANTIBODY >8.0 POS <1.0 NEG A (test code = SM/SOC[employer] MARKETER ANTIBODY) SJOGRENS ANTIBODY 1.0 POS <1.0 NEG A (SS-A) (test code = SJOGRENS ANTIBODY (SS-A)) SJOGRENS ANTIBODY <1.0 NEG <1.0 NEG N (SS-B) (test code = SJOGRENS ANTIBODY (SS-B)) [facility][Q] Antinuclear Antibody, Titer and Wyjupkr8651-13-14 14:27:00 Test Item Value Reference Range Interpretation Comments LAUREL TITER > OR = 1:1280 A Reference Rang e <1:40 (test code = Negative 1:40-1 :80 Low LAUREL TITER) Antibody Level >1:80 Elevated Antibo dy Level LAUREL PATTERN Nuclear, A Homogeneous pat tern is (test code = Homogeneous associated with systemic LAUREL PATTERN) lupuserythemato rand (SLE), drug-ind uced lupus and juvenileidiopat hic arthritis. AC-1 : Homogeneous International C onsensus on LAUREL Patterns(https: //doi.org /10.1515/cclm-2 018-0052) [facility][QL] ANTIPHOSPHOLIPID ANTIBODY HEZYK1261-96-19 14:27:00 Test Item Value Reference Interpretation Comments Range INTERPRETATION (test SEE NOTE For fur ther inquiries code = regarding speci fic clinical INTERPRETATION) problemsor c oagulation laboratory test issues, please call a [facility] Customer Support Represe kenneth, for ref erral to the [employer] r of Coagulation. B2 GLYCOPROTEIN I <9 < OR = 20 (IGG)AB (test code = B2 GLYCOPROTEIN I (IGG)AB) B2 GLYCOPROTEIN I AB <9 < OR = 20 (IGA)AB (test code = B2 GLYCOPROTEIN I AB (IGA)AB) B2 GLYCOPROTEIN I <9 < OR = 20 The antiph ospholipid antibody (IGM)AB (test code = syndrom e (APS) louie B2 GLYCOPROTEIN I clinical-p athologic (IGM)AB) correlation mata t includesa clinical event (e.g. thrombosis, pre gnancyloss, thrombocytopeni a) and persistent positiveantipho spholipid antibodies (IgM or IgG ALYCE>40 MPL/GPL,IgM or IgG anti-b2GPI antibodies ora lupus anticoagulant). International consensusguidel mary ellen for APS suggest waiting at least 12weeks before retesting to confirm antibod ypersistence. The [facility] immunologicalcl assification criteria for sy [facility] lupuserythemato rand (SLE) include testing for isotypeIgA, whi ch has yet to be incorporated into APScriteria. Lo w level antiphospholipi d antibodiesmay s ometimes be detected in the setting ofinfection, dr ug therapy or aging. PHOSPHATIDYLSERINE AB <20 <20 Ne gative 20-30 Equivocal- (IGA) (test code = Found in small percentage of PHOSPHATIDYLSERINE AB the he althy population; may (IGA)) be reactive >30 Positive - Risk factor for thrombosis PHOSPHATIDYLSERINE AB <10 <10 Ne gative 10-20 Equivocal- (IGG) (test code = Found in small percentage of PHOSPHATIDYLSERINE AB the he althy population; may (IGG)) be reactive >20 Positive - Risk factor for thrombosis and l oss PHOSPHATIDYLSERINE AB <25 The an tiphospholipid antibody (IGM) (test code = syndrome (APS) louie PHOSPHATIDYLSERINE AB clinic al-pathologic (IGM)) correlation mata t includesa clinical event (e.g. thrombosis, pre gnancyloss, thrombocytopeni a) and persistent positiveantipho spholipid antibodies (IgM or IgG ALYCE>40 MPL/GPL,IgM or IgG anti-b2GPI antibodies ora lupus anticoagulant). International consensusguidel mary ellen for APS suggest waiting at least 12weeks before retesting to confirm antibod ypersistence. The [facility] immunologicalcl assification criteria for sy stemic lupuserythemato rand (SLE) include testing for isotypeIgA, whi ch has yet to be incorporated into APScriteria. Lo w level antiphospholipi d antibodiesmay s ometimes be detected in the setting ofinfection, dr ug therapy or aging. <25 Nega tive 25-35 Equivocal- Foun d in small percentage of t he healthy population; may be reactive >35 Positive - Risk factor for thrombosis CARDIOLIPIN AB(IGA) <11 (test code = CARDIOLIPIN AB(IGA)) CARDIOLIPIN AB (IGG) 22 {GPL} (test code = CARDIOLIPIN AB (IGG)) CARDIOLIPIN AB (IGM) <12 The ant iphospholipid antibody (test code = syndrome (APS) louie CARDIOLIPIN AB (IGM)) clinic al-pathologic correlation mata t includesa clinical event (e.g. thrombosis, pre gnancyloss, thrombocytopeni a) and persistent positiveantipho spholipid antibodies (IgM or IgG ALYCE>40 MPL/GPL,IgM or IgG anti-b2GPI antibodies ora lupus anticoagulant). International consensusguidel mary ellen for APS suggest waiting at least 12weeks before retesting to confirm antibod ypersistence. The [facility] immunologicalcl assification criteria for sy stemic lupuserythemato rand (SLE) include testing for isotypeIgA, whi ch has yet to be incorporated into APScriteria. Lo w level antiphospholipi d antibodiesmay s ometimes be detected in the setting ofinfection, dr ug therapy or aging. Cardioli pin Ab (IgA) Value Interpret ation----- < or = 11 Negative 12-20 Indeterminate 21-80 Low to Me dium Positive >80 High Positi ve Cardiolipin Ab (IgG) Value Interpretation- ---- < or = 14 Negative 15-20 Indeterminate 21-80 Low to Me dium Positive >80 High Positi ve >40 GPL is a risk factor f or thrombosisand p regnancy loss. Cardiolipin Ab (IgM) Value Interpretation- ---- < or = 12 Negative 13-20 Indeterminate 21-80 Low to Me dium Positive >80 High Positi ve >40 MPL is a risk factor f or thrombosisand p regnancy loss. [facility]] CMP [id number] 14:27:00 Test Item Value Reference Range Interpretation Comments GLUCOSE; Normal 93 mg/dl 65-139 N Non-fasting (test code = 1547-9) referen ce interval UREA NITROGEN (BUN) 34 mg/dl 7-25 (test code = UREA NITROGEN (BUN)) CREATININE (test 1.64 mg/dl 0.50-1.10 code = CREATININE) eGFR NON- 42 {ML/MIN/1.7} > OR = 60 EQUATORIAL GUINEAN (test code = eGFR NON-) eGFR 49 {ML/MIN/1.7} > OR = 60 EQUATORIAL GUINEAN (test code = eGFR ) BUN/CREATININE RATIO 21 {CALC} 6-22 N (test code = BUN/CREATININE RATIO) SODIUM (test code = 139 mmol/L 135-146 N SODIUM) POTASSIUM (test code 5.4 mmol/L 3.5-5.3 = POTASSIUM) CHLORIDE (test code 106 mmol/L 98-110 N = CHLORIDE) CARBON DIOXIDE (test 27 mmol/L 20-32 N code = CARBON DIOXIDE) CALCIUM (test code = 9.2 mg/dl 8.6-10.2 N CALCIUM) PROTEIN, TOTAL (test 7.1 g/dl 6.1-8.1 N code = PROTEIN, TOTAL) ALBUMIN (test code = 3.1 g/dl 3.6-5.1 ALBUMIN) GLOBULIN (test code 4.0 {G/DL CALC} 1.9-3.7 = GLOBULIN) ALBUMIN/GLOBULIN 0.8 {CALC} 1.0-2.5 RATIO (test code = ALBUMIN/GLOBULIN RATIO) BILIRUBIN, TOTAL; 0.2 mg/dl 0.2-1.2 N Normal (test code = 72649-9) ALKALINE PHSPHATASE 76 u/l 33-115 N (test code = ALKALINE PHSPHATASE) AST; Normal (test 20 u/l 10-30 N code = 1916-6) ALT; Normal (test 10 u/l 6-29 N code = 1742-6) [facility]] CREATINE KINASE, [id number] 14:27:00 Test Item Value Reference Range Interpretation Comments CREATINE KINASE, TOTAL (test code = 24 u/l 29-143 CREATINE KINASE, TOTAL) [facility][Q] DNA (DS) ANTIBODY, CRITHIDIA IFA W/REFLEX TO [id number] 14:27:00 Test Item Value Reference Range Interpretation Comments DNA AB (DS) CRITHIDIA,IFA (test code POSITIVE NEGATIVE A = DNA AB (DS) CRITHIDIA,IFA) [facility][Q] DNA AB (DS) CRITHIDIA [id number] 14:27:00 Test Item Value Reference Range Interpretation Comments DNA AB (DS) CRITHIDIA TITER (test code 1:2560 <1:10 = DNA AB (DS) CRITHIDIA TITER) [facility]] URINALYSIS, [id number] 14:27:00 Test Item Value Reference Range Interpretation Comments COLOR; Normal (test code = 5778-6) YELLOW YELLOW N APPEARANCE (test code = APPEARANCE) CLEAR CLEAR N SPECIFIC GRAVITY; Normal (test code 1.016 1.001-1.035 N = 2965-2) PH; Normal (test code = 2756-5) 5.5 5.0-8.0 N GLUCOSE; Normal (test code = 1547-9) NEGATIVE NEGATIVE N BILIRUBIN; Normal (test code = NEGATIVE NEGATIVE N 44615-6) KETONES; Normal (test code = NEGATIVE NEGATIVE N 62517-9) OCCULT BLOOD; Normal (test code = NEGATIVE NEGATIVE N 91496-4) PROTEIN; Abnormal (test code = 2+ NEGATIVE A 97014-4) NITRITE; Normal (test code = NEGATIVE NEGATIVE N 94778-4) LEUKOCYTE ESTERASE (test code = TRACE NEGATIVE A LEUKOCYTE ESTERASE) WBC; Abnormal (test code = 6690-2) 6-10 < OR = 5 A RBC; Normal (test code = 789-8) 0-2 < OR = 2 N SQUAMOUS EPITHELIAL CELLS (test code 0-5 < OR = 5 = 59542-3) BACTERIA; Abnormal (test code = FEW NONE SEEN A 630-4) HYALINE CAST; Abnormal (test code = 0-1 NONE SEEN A 03493-4) [facility]] CBC (INCLUDES DIFF/PLT)2019-09-30 14:27:00 Test Item Value Reference Range Interpretation Comments WHITE BLOOD CELL COUNT 5.4 {Thousand/u} 3.8-10.8 N (test code = WHITE BLOOD CELL COUNT) RED BLOOD CELL COUNT (test 3.87 {Million/uL} 3.80-5.10 N code = RED BLOOD CELL COUNT) HEMAGLOBIN; Below Low 10.9 g/dl 11.7-15.5 Threshold (test code = 14460-8) HEMATOCRIT; Below Low 33.0 % 35.0-45.0 Threshold (test code = 4544-3) MCV; Normal (test code = 85.3 fL 80.0-100.0 N 787-2) MCHC; Normal (test code = 33.0 g/dl 32.0-36.0 N 02008-8) RDW; Normal (test code = 13.1 % 11.0-15.0 N 788-0) PLATELET COUNT; Normal 344 {Thousand/u} 140-400 N (test code = 777-3) MPV; Normal (test code = 10.6 fL 7.5-12.5 N 40994-1) ABSOLUTE NEUTROPHILS (test 4169 {cells/uL} 8943-8369 N code = ABSOLUTE NEUTROPHILS) ABSOLUTE LYMPHOCYTES (test 972 {cells/uL} 850-3900 N code = ABSOLUTE LYMPHOCYTES) ABSOLUTE MONOCYTES (test 178 {cells/uL} 200-950 code = ABSOLUTE MONOCYTES) ABSOLUTE EOSINOPHILS (test 70 {cells/uL} 15-500 N code = ABSOLUTE EOSINOPHILS) ABSOLUTE BASOPHILS (test 11 {cells/uL} 0-200 N code = ABSOLUTE BASOPHILS) NEUTROPHILS (test code = 77.2 % N NEUTROPHILS) LYMPHOCYTES (test code = 18.0 % N LYMPHOCYTES) MONOCYTES; Normal (test 3.3 % N code = 27992-2) EOSINOPHILS; Normal (test 1.3 % N code = 61445-4) BASOPHILS; Normal (test 0.2 % N code = 75712-2) [facility]] COMPLEMENT COMPONENT [id number] 14:27:00 Test Item Value Reference Range Interpretation Comments COMPLEMENT COMPONENT C3C (test code 29 mg/dl 83-193 = COMPLEMENT COMPONENT C3C) [facility]] COMPLEMENT COMPONENT [id number] 14:27:00 Test Item Value Reference Range Interpretation Comments COMPLEMENT COMPONENT C4C (test code = <3 15-57 COMPLEMENT COMPONENT C4C) [facility]] RHEUMATOID [id number] 14:27:00 Test Item Value Reference Range Interpretation Comments RHEUMATOID FACTOR (test code = <14 <14 N RHEUMATOID FACTOR) [facility]] C-REACTIVE [id number] 14:27:00 Test Item Value Reference Range Interpretation Comments C-REACTIVE PROTEIN (test code = 1.1 mg/L <8.0 N C-REACTIVE PROTEIN) [facility]] VITAMIN D, 25-HYDROXY, [id number]/[id number] 14:27:00 Test Item Value Reference Range Interpretation Comments VITAMIN 30 ng/ml 30-100 N Vitamin D Statu s 25-OH D,25-OH,TOTAL,IA Vitamin D: Deficiency: (test code = VITAMIN <20 ng/ mLInsufficiency: D,25-OH,TOTAL,IA) 20 - 29 ng /mLOptimal: > or = 30 ng/mL F or 25-OH Vitamin D testi ng on patients on D2-supplementat ion and patients for wh om quantitation of D2 and D3 fractions is required, the QuestAssureD(TM )25-OH VIT D, (D2,D3), LC/MS/MS is recommended: order code 56786 (pat ients >2yrs). For mor e information on this test, go to:http://educa tion.ques tdiagnostics.co m/faq/FAQ 163(This link i s being provided for informational/e ducationa l purposes only .) [facility][Q] PROTEIN, TOTAL W/CREAT, RANDOM [id number] 14:27:00 Test Item Value Reference Range Interpretation Comments CREATININE, RANDOM 139 mg/dl 20-275 N URINE (test code = CREATININE, RANDOM URINE) PROTEIN/CREATININE 1.957 {mg/mg 0.021-0.161 RATIO (test code = crea} PROTEIN/CREATININE RATIO) PROTEIN, TOTAL, 272 mg/dl 5-24 Results veri fied by RANDOM UR (test repeat wesley sis on code = PROTEIN, dilution. TOTAL, RANDOM UR) [facility]] [id number] 15:48:00 Test Item Value Reference Range Interpretation Comments ESTRADIOL (test code 19 pg/ml N Referen ce Range = ESTRADIOL) Follicular Phas e: 19-144 Mid-Cycle: 64-3 57 Luteal Phase: 56-214 Postmenopausal: < or = 31 Reference range established on post-pubertal patientpopulati on. No pre-pubertal re ference rangeestablishe d using this assay. For any patients forwho m low Estradiol level s are anticipated (e. g. males,pre-puber kalin children and hypogonadal/pos t-menopaus al females), th e [facility] CenterEstrad iol, Ultrasensitive, LCMSMS assay is recommended(ord er code 13136). Please note: patients being treated with the drug f ulvestrant (Faslodex(R)) h ave demonstrated si gnificant interference in immunoassay met hods for estradiol measu rement. The cross react ivity could lead to f alsely elevated estrad iol test results leading to an inappropriate c linical assessment of e strogen status.[facility] order code 02741-Dpsqqbaig , Ultrasensitive LC/MS/MS demonstrates ne gligible cross reactivit y with fulvestrant.STEVEN TABOR RECEIVED DATE A ND TIME: [id number] [facility][Q] HIV-1/2 Antigen and Antibodies, Fourth Generation, with [id number] 16:50:00 Test Item Value Reference Range Interpretation Comments HIV AG/AB, 4TH NON-REACTIVE NON-REACTIVE N HIV-1 antigen and GEN; Normal HIV-1/HIV-2 ant ibodies were (test code = [place] [address]-2) laboratory evid ence of HIVinfection. P LEASE NOTE: This informatio n has been disclosed toyou from records whose confidentiality may beprotected by state law. If your state r equires suchprotection, then the state law prohi bits you frommaking any further disclosure of t he informationwith out the specific writte n consent of the personto om it pertains, or as otherwise permitted by rosa mabry.A general authorization f or the release of merit health rankinther information is NOT sufficient for this purpose. For ad ditional information ple ase refer tohttp://educat Jobool/fa q/NZF140(Thi s link is being provided for informational/e ducational purposes only.) The performance of this assay has not been clinicallyvalid ated in patients less t billy 2 years old. SPECIMEN R ECEIVED DATE AND TIME: [facility][Q] HEPATITIS B SURFACE ANTIGEN W/REFL [id number] 16:50:00 Test Item Value Reference Range Interpretation Comments HEPATITIS B SURFACE NON-REACTIVE NON-REACTIVE N SPECIMEN RECEIVED DATE ANTIGEN; Normal AND TIME: (test code = 5195-3) [facility]] HEPATITIS C [id number] 16:50:00 Test Item Value Reference Range Interpretation Comments HEPATITIS C NON-REACTIVE NON-REACTIVE N ANTIBODY; Normal (test code = 84192-8) SIGNAL TO CUT-OFF 0.23 <1.00 N HCV antibo dy was (test code = SIGNAL non-reac tive. There is TO CUT-OFF) no laboratory e vidence of HCV infectio n. In most cases, no further action is requi red. However,if rece nt HCV exposure is rand pected, a test for HCV RNA(test code 3 5645) is suggested. F or additional info rmation please refer tohttp://educat [employer] stdiagnostics.c /faq/ QWI36u2(This li nk is being provided for informational/e ducatio nal purposes on ly.) SPECIMEN RECEIV ED DATE AND TIME: [facility][Q] HSV 1/2 IGG, HERPESELECT TYPE SPECIFIC AB (REFL)2019-08-20 16:50:00 Test Item Value Reference Range Interpretation Comments HSV 1 IGG TYPE 1.06 {index} SPECIFIC AB (test code = HSV 1 IGG TYPE SPECIFIC AB) HSV 2 IGG TYPE >23.00 Index Interpr etation SPECIFIC AB ----- -------- ------ (test code = HSV <0.90 Negat tiarra 0.90-1.09 2 IGG TYPE Equivocal >1.09 Positive SPECIFIC AB) This assay util izes recombinant typ e-specific antigensto diff erentiate HSV-1 from HSV- 2 infections. Apo sitive result cannot d istinguish between recent andpast infection. If r ecent HSV infection is byrd spectedbut the results are negative or equivocal, t he assayshould be repeated in 4-6 weeks. T he performancechar acteristic s of the assay have not been establishe dfor pediatric popul ations, immunocompromis ed patients,or yokasta saurabh screening.SPECI MEN RECEIVED DATE A ND TIME: [facility]] [id number] 16:50:00 Test Item Value Reference Range Interpretation Comments FSH (test code = 6.2 {miU/ml} N Reference R breana FSH) Follicular Phas e 2.5-10.2 Mid-cycle Peak 3.1-17.7 Luteal Phase 1. 5- 9.1 Postmenopausal 23.0-116.3 SPECIMEN RECEIV ED DATE AND TIME: [facility]] [id number] 16:50:00 Test Item Value Reference Range Interpretation Comments LH (test code = 5.5 {miU/ml} N Reference Ra ngeFollicular LH) Phase 1.9-12.5M id-Cycle Peak 8.7-76.3Lu teal Phase 0.5-16.9Postmen opausal 10.0-54.7SPECIM EN RECEIVED DATE AND TIME: [facility]] [id number] 16:50:00 Test Item Value Reference Range Interpretation Comments PROLACTIN (test 26.6 ng/ml N Reference Ra nge Females code = PROLACTIN) Non-pregna nt 3.0-30.0 10.0-2 09.0 Postmenopausal 2.0-20.0 SPECIMEN RECEIV ED DATE AND TIME: [facility]] T4, [id number] 16:50:00 Test Item Value Reference Range Interpretation Comments T4, FREE (test 0.8 ng/dl 0.8-1.8 N SPECIMEN RECE IVED DATE AND code = T4, FREE) TIME: [facility]] TESTOSTERONE, FREE AND TOTAL, [id number] 16:50:00 Test Item Value Reference Range Interpretation Comments TESTOSTERONE, <1 2-45 TOTAL, LC/MS/MS (test code = TESTOSTERONE, TOTAL, LC/MS/MS) FREE TESTOSTERONE 0.1 pg/ml 0.1-6.4 Data fro m J Clin Invest (test code = FREE 1973:53:81 9-828 and J Clin TESTOSTERONE) Endocrinol Met ab 1972;36:1132-11 42. Men with clinically sign ificant hypogonadal sym ptoms and testosterone va lues repeatedly in t he range of the 200-300 ng/ dL or less, may benefit fro m testosteronetre atment after adequate risk a nd benefits counseling. For additional information, pl ease refer to http://educatio n.Xumii/faq/ ULB389 (This link is being p rovided for informational/ educational purposes only.) This test was developed a nd its analytical perf ormance characteristics have been determined by [facility] Valarie Millan. It has not been cleared or approved by the USFood and Drug Administra tion. This assay has been validated pursuant to the CLIA regulations and is used for clinical purpos es. Confirmed by re peat analysis. SPECI MEN RECEIVED DATE AND TIME: [facility][QL] [id number] 16:50:00 Test Item Value Reference Range Interpretation Comments RPR (MONITOR) NON-REACTIVE NON-REACTIVE N SPECIMEN RECEI PATT DATE W/REFL TITER AND TIME: (REFL) (test code = RPR (MONITOR) W/REFL TITER (REFL)) [facility][O] Urine Test (in office)2019-08-20 00:00:00 Test Item Value Reference Range Interpretation Comments Test, Urine; Normal (test neg N code = 2106-3) [facility]. [facility] - [id number] 00:00:00 Test Item Value Reference Range Interpretation Comments PAP REPORT (test code = 23583-7) See Comment [facility]iciansURINALYSIS [id number] 15:38:00 Test Item Value Reference Range Interpretation Comments UA COLOR (test code = COLU) LIGHT YELLOW YELLOW UA APPEARANCE (test code = CLEAR CLEAR APPU) UA GLUCOSE DIPSTICK (test code NEGATIVE mg/dL NEGATIVE = DGLUU) UA BILIRUBIN DIPSTICK (test NEGATIVE mg/dL NEGATIVE code = BILU) UA KETONE DIPSTICK (test code Negative mg/dL NEGATIVE = KETU) UA SPECIFIC GRAVITY (test code 1.015 1.001-1.035 = SGU) UA BLOOD DIPSTICK (test code = 2+ (Moderate) NEGATIVE A VANGIE) UA PH DIPSTICK (test code = 5.0 5.0-8.0 JACKSON) UA PROTEIN DIPSTICK (test code 30 (1+) mg/dL NEGATIVE A = PROU) UA UROBILINIOGEN DIPSTICK NEGATIVE mg/dL NEGATIVE (test code = URO) UA NITRITE DIPSTICK (test code NEGATIVE NEGATIVE = MUMTAZ) UA LEUKOCYTE ESTERASE W REFLEX NEGATIVE NEGATIVE (test code = LEUUR) UA WBC (test code = WBCU) 0-5 #/HPF 0-5 UA RBC (test code = RBCU) 0-2 #/HPF 0-5 UA EPITHELIAL CELLS (test code FEW per HPF FEW = EPIU) UA BACTERIA (test code = BACU) FEW #/HPF NONE A UA HYALINE CAST (test code = 0-2 #/LPF 0-5 HYALU) UA MUCUS (test code = MUCU) FEW #/LPF FEW Urine Source? Clean CatchBASIC METABOLIC [id number] 15:34:00 Test Item Value Reference Range Interpretation Comments SODIUM (test code = 141 mmol/L 136-145 N NA) POTASSIUM (test code 4.1 mmol/L 3.5-5.1 N = K) CHLORIDE (test code = 110.0 mmol/L 98-107 H CL) CARBON DIOXIDE (test 24.0 mmol/L 21-32 N code = CO2) ANION GAP (test code 11.1 10-20 N = GAP) GLUCOSE (test code = 93 mg/dL 74-106 N GLU) BLOOD UREA NITROGEN 26 mg/dL 7-18 H (test code = BUN) GLOMERULAR FILTRATION 60 mL/min >=60 Estima rosalba GFR by RATE (test code = using Jluis fied MDRD GFR) formula.Chronic kidney disease is defined as eith er kidney damageor GFR <60 mL/min/1.73 m2 for >3 months. CREATININE (test code 1.10 mg/dL 0.55-1.02 H Note change in = CREAT) reference range due to change in reagent. BUN/CREATININE RATIO 23.9 10-20 H (test code = BUN/CREA) CALCIUM (test code = 9.0 mg/dL 8.5-10.1 N CA) HEPATIC FUNCTION [id number] 15:34:00 Test Item Value Reference Range Interpretation Comments TOTAL PROTEIN (test 8.3 gram/dL 6.4-8.2 H code = PROT) ALBUMIN (test code = 2.6 g/dL 3.4-5.0 L ALB) GLOBULIN (test code = 5.7 gram/dL 2.7-4.2 H GLOB) ALBUMIN/GLOBULIN RATIO 0.5 0.75-1.50 L (test code = A/G) BILIRUBIN TOTAL (test 0.10 mg/dL 0.0-1.0 N code = BILT) BILIRUBIN DIRECT (test < 0.05 mg/dL 0.0-0.20 N code = BILD) SGOT/AST (test code = 19 IUnit/L 15-37 N AST) SGPT/ALT (test code = 15 IUnit/L 12-78 N ALT) ALKALINE PHOSPHATASE 228 IUnit/L 45-117 H Note change in TOTAL (test code = reference range due ALKP) to change in reagent. [id number] 15:34:00 Test Item Value Reference Range Interpretation Comments LIPASE (test code = LIP) 435 U/L 73.0-393.0 H HCG SERUM [id number] 15:34:00 Test Item Value Reference Range Interpretation Comments HCG SERUM QUAL (test NEGATIVE NEGATIVE This HC GQL test is NOT code = HCGQL) applicable for MALE patients.Check with nurse about probable order error.If Tumor Marker Test needed, nu rse should order test "HCG TU"(Test #[id number])---- - BASIC METABOLIC [id number] 15:33:00 Test Item Value Reference Range Interpretation Comments SODIUM (test code = 141 mmol/L 136-145 N NA) POTASSIUM (test code 4.1 mmol/L 3.5-5.1 N = K) CHLORIDE (test code = 110.0 mmol/L 98-107 H CL) CARBON DIOXIDE (test 24.0 mmol/L 21-32 N code = CO2) ANION GAP (test code 11.1 10-20 N = GAP) GLUCOSE (test code = 93 mg/dL 74-106 N GLU) BLOOD UREA NITROGEN 26 mg/dL 7-18 H (test code = BUN) GLOMERULAR FILTRATION 60 mL/min >=60 Estima rosalba GFR by RATE (test code = using Jluis fied MDRD GFR) formula.Chronic kidney disease is defined as eith er kidney damageor GFR <60 mL/min/1.73 m2 for >3 months. CREATININE (test code 1.10 mg/dL 0.55-1.02 H Note change in = CREAT) reference range due to change in reagent. BUN/CREATININE RATIO 23.9 10-20 H (test code = BUN/CREA) CALCIUM (test code = 9.0 mg/dL 8.5-10.1 N CA) HEPATIC FUNCTION [id number] 15:33:00 Test Item Value Reference Range Interpretation Comments TOTAL PROTEIN (test 8.3 gram/dL 6.4-8.2 H code = PROT) ALBUMIN (test code = 2.6 g/dL 3.4-5.0 L ALB) GLOBULIN (test code = 5.7 gram/dL 2.7-4.2 H GLOB) ALBUMIN/GLOBULIN RATIO 0.5 0.75-1.50 L (test code = A/G) BILIRUBIN TOTAL (test 0.10 mg/dL 0.0-1.0 N code = BILT) BILIRUBIN DIRECT (test < 0.05 mg/dL 0.0-0.20 N code = BILD) SGOT/AST (test code = 19 IUnit/L 15-37 N AST) SGPT/ALT (test code = 15 IUnit/L 12-78 N ALT) ALKALINE PHOSPHATASE 228 IUnit/L 45-117 H Note change in TOTAL (test code = reference range due ALKP) to change in reagent. [id number] 15:33:00 Test Item Value Reference Range Interpretation Comments LIPASE (test code = LIP) 435 U/L 73.0-393.0 H HCG SERUM [id number] 15:33:00 Test Item Value Reference Range Interpretation Comments HCG SERUM QUAL (test code = HCGQL) NEGATIVE BASIC METABOLIC [id number] 15:24:00 Test Item Value Reference Range Interpretation Comments SODIUM (test code = NA) 141 mmol/L 136-145 N POTASSIUM (test code = K) 4.1 mmol/L 3.5-5.1 N CHLORIDE (test code = CL) 110.0 mmol/L 98-107 H CARBON DIOXIDE (test code = CO2) mmol/L 21-32 ANION GAP (test code = GAP) 10-20 GLUCOSE (test code = GLU) mg/dL 74-106 BLOOD UREA NITROGEN (test code = mg/dL 7-18 BUN) GLOMERULAR FILTRATION RATE (test mL/min >=60 code = GFR) CREATININE (test code = CREAT) mg/dL 0.55-1.02 BUN/CREATININE RATIO (test code 10-20 = BUN/CREA) CALCIUM (test code = CA) mg/dL 8.5-10.1 HEPATIC FUNCTION [id number] 15:24:00 Test Item Value Reference Range Interpretation Comments TOTAL PROTEIN (test code = PROT) gram/dL 6.4-8.2 ALBUMIN (test code = ALB) g/dL 3.4-5.0 GLOBULIN (test code = GLOB) gram/dL 2.7-4.2 ALBUMIN/GLOBULIN RATIO (test code = 0.75-1.50 A/G) BILIRUBIN TOTAL (test code = BILT) mg/dL 0.0-1.0 BILIRUBIN DIRECT (test code = BILD) mg/dL 0.0-0.20 SGOT/AST (test code = AST) IUnit/L 15-37 SGPT/ALT (test code = ALT) IUnit/L 12-78 ALKALINE PHOSPHATASE TOTAL (test IUnit/L 45-117 code = ALKP) [id number] 15:24:00 Test Item Value Reference Range Interpretation Comments LIPASE (test code = LIP) U/L 73.0-393.0 HCG SERUM [id number] 15:24:00 Test Item Value Reference Range Interpretation Comments HCG SERUM QUAL (test code = HCGQL) NEGATIVE PROTHROMBIN [id number] 14:33:00 Test Item Value Reference Range Interpretation Comments PROTHROMBIN TIME 11.3 seconds 9.0-14.0 N PATIENT (test code = PTP) INTERNATIONAL NORMAL 0.9 0.8-1.2 N The the rapeutic range RATIO (test code = for oral INR) anticoagulant t herapy formost indicat ions is an internati onal normalized rati o (INR)of between 2.0 and 3.0. The recommended therapeutic INR range for various cli nical situations is l isted below: Clinical Situat ion INR range Pulmonary embol ism treatment (2.0-3.0)Venous thrombosis treatmentVenous thrombosis prophylaxis (hi gh risk surgery)Prevent ion of systemic emboli sm from: Acute myocardial infa rction Valvular heart disease Atrial fibrillation Mechanical pros thetic heart valves (2.5-3.5) IS PATIENT ON ANTICOAGULANTS? NTHROMBOPLASTIN TIME [id number] 14:33:00 Test Item Value Reference Range Interpretation Comments THROMBOPLASTIN TIME PARTIAL 27.5 seconds 25.0-36.5 N (test code = PTT) IS PATIENT ON ANTICOAGULANTS? NCBC W/O [id number] 14:27:00 Test Item Value Reference Range Interpretation Comments WHITE BLOOD CELL (test code = 10.0 K/mm3 4.5-12.5 N WBC) RED BLOOD CELL (test code = 3.35 mill/mm3 3.7-5.2 L RBC) HEMOGLOBIN (test code = HGB) 9.2 gram/dL 11.5-15.5 L HEMATOCRIT (test code = HCT) 30.4 % 36.0-46.0 L MEAN CELL VOLUME (test code = 90.7 fL 80-98 N MCV) MEAN CELL HGB (test code = MCH) 27.5 picogram 27.0-33.0 N MEAN CELL HGB CONCETRATION 30.3 gram/dL 33.0-36.0 L (test code = MCHC) RED CELL DISTRIBUTION WIDTH 13.9 % 11.6-16.2 N (test code = RDW) PLATELET COUNT (test code = 312 K/mm3 150-450 N PLT) MEAN PLATELET VOLUME (test code 10.7 fL 6.7-11.0 N = MPV) URINE AND [id number] 17:56:00Negative *NA*(07/20/18 12:56 PM)[facility] GHXLE2363-94-65 17:56:00Small *ABN*(07/20/18 12:56 PM)[facility] TDGGU3939-93-24 17:56:00Moderate *ABN*(07/20/18 12:56 PM) [facility] URSHB8163-40-62 17:56:004[facility] TQMDW1533-67-71 17:56:0071[facility] MZXYX1391-47-82 17:56:00 Negative (07/20/18 12:56 PM)[facility] SIBLQ4871-63-66 17:56:00 Slight *ABN*(07/20/18 12:56 PM)[facility] IXVIF6889-19-21 17:56:00 Test Item Value Reference Range Interpretation Comments UA Spec Grav (test code = UA Spec 1.025 1 Grav) [facility] BMIMK5599-80-62 17:56:00Yellow *NA*(07/20/18 12:56 PM) [facility] FQDEC7388-89-65 17:56:00 Test Item Value Reference Range Interpretation Comments UA pH (test code = UA pH) 6.0 1 5.0-8.0 [facility] MUAIH2334-62-82 17:56:00Negative *NA*(07/20/18 12:56 PM)[facility] EVMMI6636-29-10 17:56:00Small *ABN*(07/20/18 12:56 PM)[facility] QSPKM6676-09-37 17:56:00Moderate *ABN*(07/20/18 12:56 PM)[facility] EWCOC8303-79-08 17:56:004[facility] AND OARJZ0356-31-71 17:56:0071[facility] XLCCY3900-24-03 17:56:00Negative (07/20/18 12:56 PM)[facility] MCQHW3150-55-25 17:56:00Slight *ABN*(07/20/18 12:56 PM)[facility] YXTWP4170-24-71 17:56:00 Test Item Value Reference Range Interpretation Comments UA Spec Grav (test code = UA Spec 1.025 1 Grav) [facility] ORBKU1843-70-75 17:56:00Yellow *NA*(07/20/18 12:56 PM) [facility] UZFBA4869-58-24 17:56:00 Test Item Value Reference Range Interpretation Comments UA pH (test code = UA pH) 6.0 1 5.0-8.0 [facility]annCARDIAC GBVAGZN8175-18-16 16:45:00<0.02[facility]annCHEM MSQBJ3115-74-19 16:45:0067[facility]annCHEM KHZAY4384-04-88 16:45:002.0 [facility] PgtukfnPRCPYTSVDCAS2050-57-83 16:45:18425Dwyavjpm HermannELECTROLYTES 2018-07-20 16:45:004.0[facility] FojyhvuTTZFQSZELZYP1049-01-71 16:45:93888Ypovsmdi EfowsktDQDSXILIBMHZ9304-35-63 16:45:84027Witjmemo QcufoemNIJAWPCSXTPM3285-93-51 16:45:0017[facility] OpsmmfgETIFLBKRHAMH4723-76-74 16:45:0077[facility] YMCCAPDJTNEJ3469-20-68 16:45:000.2[facility] HzxxovlMIAAWEPDSANJ2920-30-29 16:45:15554Fvnrygau TmypqtwBXPAMJIBCAYC2388-18-61 16:45:0026[facility] ERQJOXPCUPHZ4113-82-88 16:45:0018[facility] OrvgjguILSNFUBPXSTY1477-14-90 16:45:00 7.9[facility] MqokjdsPDJIANYBXCPE8300-59-35 16:45:002.4[facility] JXYIEIPQGIKC5546-07-81 16:45:007.6[facility] OmehfryLLHTTCTLBTOL5065-45-21 16:45:0025[facility] GrsaqkbKZLCGODFWFOF4439-74-88 16:45:000.72[facility] AGJQUMUGAQIK5089-54-38 16:45:00 Test Item Value Reference Range Interpretation Comments A/G Ratio (test code = A/G Ratio) 0.5 1 0.7-1.6 [facility] OpmkcgfLFUDEFPAHJTM9147-55-75 16:45:005.2[facility]annELECTROLYTES 2018-07-20 16:45:00 Test Item Value Reference Range Interpretation Comments B/C Ratio (test code = B/C Ratio) 24 1 6-25 [facility] UsglmkxYPRTVWCVWZKM7145-06-18 16:45:0011.0[facility]annHEMATOLOGY 2018-07-20 16:45:00 Test Item Value Reference Range Interpretation Comments PTT (test code = PTT) 26.9 s 22.9-35.8 [facility] IwrwrkyAEYPGUCTLK2571-54-90 16:45:0033.7[facility]annHEMATOLOGY 2018-07-20 16:45:0087.4[facility] WpffwbaBQDUZWACPM5259-22-37 16:45:0033.1[facility] PzpbwamELOCZSDWXW1006-31-01 16:45:0011.2[facility] KzpdnbdRWUCIALBES3728-45-94 16:45:00 Test Item Value Reference Range Interpretation Comments MCH (test code = MCH) 29.5 pg 27.0-31.0 [facility] VnuntccGXBCPMGQYV0435-73-16 16:45:0014.4[facility]annHEMATOLOGY 2018-07-20 16:45:003.79[facility] DurjfedVAFEDMVPPC0763-78-45 16:45:006.7[facility] CpwewukECPDVNYDGF7428-99-57 16:45:008.5[facility] AvodwhlRHYXPUUSHO9112-91-57 16:45:84996Lcvwpgwt OajhmyrGOARBJSMEX4586-94-79 16:45:00 Test Item Value Reference Range Interpretation Comments PT (test code = PT) 13.0 s 12.0-14.7 [facility] FroqxpwAYWDMRYBVF8720-02-21 16:45:00 Test Item Value Reference Range Interpretation Comments INR (test code = INR) 0.98 1 0.85-1.17 [facility] QswflegJWLSWTBCFR3282-81-49 16:45:0069.0[facility]annHEMATOLOGY 2018-07-20 16:45:0021.2[facility] CnwwzyhXXCBQUZMXZ8477-97-69 16:45:007.8[facility] RnzlevnMAKKUWBXDK1737-37-41 16:45:001.4[facility] UoxtdahEKXNWXVMKE2048-24-76 16:45:000.6[facility] TwzhnfkIHJPKZKVSM3041-35-24 16:45:004.6[facility] UQZUKJJNXO2573-91-24 16:45:000.1[facility] SixcbraKIBTECWWWZ9078-93-04 16:45:001.4 [facility] ObukrglDZENGACLGO7038-91-36 16:45:000.5[facility]annCARDIAC ENZYMES 2018-07-20 16:45:00<0.02[facility]annCHEM EVTQM7141-11-96 16:45:0067 [facility]annCHE[facility] MABYY3483-94-82 16:45:002.0[facility]annELECTROLYTES 2018-07-20 16:45:65413Azbspphd NwizovvMGYBONSTNXEG8395-97-42 16:45:004.0[facility] FejsftfFUFXDSQEXZCU3181-97-34 16:45:80085Fxtnilgl LxizovoRHJBNFQCLQNR3955-55-65 16:45:99595Zscjknel EfgyzmgKCQXIJKAQCVO7290-82-99 16:45:0017[facility] DTAFIEWFKWBY7492-52-23 16:45:0077[facility] HhdwzvkRUQIRCZFUDVH8741-51-15 16:45:00 0.2[facility] HuloyzqATQPRKMPHZFY1182-56-88 16:45:53682[facility] [place] XHHWIGMQZALW1376-10-63 16:45:0026[facility] XjyeoslPLWOUQOCTVAG8787-01-47 16:45:00 18[facility] DebnzrbKRCLTVBVVNEA5761-90-06 16:45:007.9[facility]annELECTROLYTES 2018-07-20 16:45:002.4[facility] FhrdzlsRSINGTLXZXWG7835-21-37 16:45:007.6[facility] PrmhaklGSXZSGMZJRGF4038-99-10 16:45:0025[facility] LpeysyvPMRJLMQFRVZL3664-23-23 16:45:000.72[facility] OwuutwfMFZWKTSPMZCE8324-57-92 16:45:00 Test Item Value Reference Range Interpretation Comments A/G Ratio (test code = A/G Ratio) 0.5 1 0.7-1.6 [facility] RekqbqqKSROFHVQTCGB7628-13-21 16:45:005.2[facility]annELECTROLYTES 2018-07-20 16:45:00 Test Item Value Reference Range Interpretation Comments B/C Ratio (test code = B/C Ratio) 24 1 6-25 [facility] TkxpvqiOAVGVBQABKAI5457-38-88 16:45:0011.0[facility]annHEMATOLOGY 2018-07-20 16:45:00 Test Item Value Reference Range Interpretation Comments PTT (test code = PTT) 26.9 s 22.9-35.8 [facility] RlxzfgdAGDFNFDRJB7139-64-52 16:45:0033.7[facility]annHEMATOLOGY 2018-07-20 16:45:0087.4[facility] MnpsenbUKOYQUBUHQ0582-38-60 16:45:0033.1[facility] HogrpjrNSOKJQQTJH5502-37-34 16:45:0011.2[facility] XdesxyxNWGSURIBUP8790-75-72 16:45:00 Test Item Value Reference Range Interpretation Comments MCH (test code = MCH) 29.5 pg 27.0-31.0 [facility] OkmgiuaUADNAJAYFC8386-25-14 16:45:0014.4[facility]annHEMATOLOGY 2018-07-20 16:45:003.79[facility] EebougvBDMZWAFUSF0454-89-37 16:45:006.7[facility] QnrenpfVLNSLCBCKF5054-38-01 16:45:008.5[facility] AqvizloZYYVLIWFXZ7212-75-54 16:45:25269Raotfcrw KsyvyrrDNXCGNWNTT2072-97-11 16:45:00 Test Item Value Reference Range Interpretation Comments PT (test code = PT) 13.0 s 12.0-14.7 [facility] PmtnmfwKVEAXRRQCO8696-11-48 16:45:00 Test Item Value Reference Range Interpretation Comments INR (test code = INR) 0.98 1 0.85-1.17 [facility] WdojwcbRDVSZKSWZO1085-49-16 16:45:0069.0[facility]annHEMATOLOGY 2018-07-20 16:45:0021.2[facility] CjjgxagYQMZZLVFDW0580-49-75 16:45:007.8[facility] KpmjuyuLGYIRTSSHO6736-67-57 16:45:001.4[facility] XunhzrtWUKEVLUITY8994-69-54 16:45:000.6[facility] TyxnvavBZZWAIDWSG6818-43-26 16:45:004.6[facility] BSYSGVVGON1463-55-24 16:45:000.1[facility] LuewfhcFZDLPMIUBZ8154-15-67 16:45:001.4 [facility] NuyyecbWQDJKLVUGJ9125-94-51 16:45:000.5[facility]annHEMATOLOGY 2018-07-15 09:24:009.8[facility] QzkktxjUZCFMZKLZY0272-46-25 09:24:0029.2[facility] JbnbfmtVJKYEGUVEJ1201-27-62 09:24:009.8[facility] NuxvewnZQMTXJZTSR7785-44-06 09:24:0029.2[facility]annDRUG JNDARU6860-29-11 02:30:00See Note (07/14/18 9:30 PM)[facility] WPDEGL0886-07-27 02:30:00Negative *NA*(07/14/18 9:30 PM) [facility] MXXEXD7440-53-13 02:30:00Negative *NA*(07/14/18 9:30 PM) [facility] UXFVSL5399-53-35 02:30:00Negative *NA*(07/14/18 9:30 PM) [facility] HWSKKO6112-60-56 02:30:00Negative *NA*(07/14/18 9:30 PM) [facility] NQSIFI3564-10-51 02:30:00Negative *NA*(07/14/18 9:30 PM) [facility] LRRZAZ8322-78-08 02:30:00Negative *NA*(07/14/18 9:30 PM) [facility] SSLVSP1355-20-48 02:30:00Negative *NA*(07/14/18 9:30 PM) [facility] HYOKU4777-72-58 02:30:00Yellow *NA*(07/14/18 9:30 PM) [facility] HEOAP2516-40-47 02:30:00Slight *ABN*(07/14/18 9:30 PM) [facility] VKLNF9441-08-55 02:30:00Negative *NA*(07/14/18 9:30 PM) [facility] TXIZT5413-52-69 02:30:00Negative (07/14/18 9:30 PM) [facility] WFYNN2989-01-97 02:30:00Large *ABN*(07/14/18 9:30 PM) [facility] DSXPP6970-04-48 02:30:00 Test Item Value Reference Range Interpretation Comments UA pH (test code = UA pH) 6.0 1 5.0-8.0 [facility] AEFHB8604-09-18 02:30:00 Test Item Value Reference Range Interpretation Comments UA Spec Grav (test code = UA Spec 1.008 1 Grav) [facility] DSTND5831-44-09 02:30:36250[facility] EMKLC4591-90-99 02:30:00Large *ABN*(07/14/18 9:30 PM)[facility] ZJIOC0691-63-16 02:30:0039[facility] KPXLDJ8705-38-73 02:30:00See Note (07/14/18 9:30 PM)[facility] MZBOAG5934-10-15 02:30:00Negative *NA*(07/14/18 9:30 PM)[facility] JZPFCG0872-28-42 02:30:00Negative *NA*(07/14/18 9:30 PM)[facility] XGUBXS8449-48-24 02:30:00Negative *NA*(07/14/18 9:30 PM)[facility] XTAZXT6878-11-56 02:30:00Negative *NA*(07/14/18 9:30 PM)[facility] OJYLSR8988-07-06 02:30:00Negative *NA*(07/14/18 9:30 PM)[facility] SXLRNV6011-57-72 02:30:00Negative *NA*(07/14/18 9:30 PM)[facility] GJDGMO3450-36-81 02:30:00Negative *NA*(07/14/18 9:30 PM)[facility] SWVDM7890-92-28 02:30:00Yellow *NA*(07/14/18 9:30 PM)[facility] YNMLH3322-25-02 02:30:00Slight *ABN*(07/14/18 9:30 PM)[facility] BTNVK1086-65-04 02:30:00Negative *NA*(07/14/18 9:30 PM)[facility] EIJCX8475-88-44 02:30:00Negative (07/14/18 9:30 PM)[facility] AMUYZ2098-15-93 02:30:00Large *ABN*(07/14/18 9:30 PM)[facility] AYQIU1828-51-95 02:30:00 Test Item Value Reference Range Interpretation Comments UA pH (test code = UA pH) 6.0 1 5.0-8.0 [facility] JZNXA9346-76-77 02:30:00 Test Item Value Reference Range Interpretation Comments UA Spec Grav (test code = UA Spec 1.008 1 Grav) [facility] QVAJT4875-60-42 02:30:37155Cvifcmjy [facility]UR[facility] FOQRG0903-50-30 02:30:00Large *ABN*(07/14/18 9:30 PM)[facility] ZFTYQ1408-52-24 02:30:0039[facility]BL[facility] SSAJTOF9591-36-76 14:53:00 Negative (07/14/18 9:53 AM)[facility] TunrdkkOXXTKXKNVR2507-50-20 14:53:000.6 [facility] HoyvvhtEAGBCPUVVY2559-22-43 14:53:006.7[facility]annHEMATOLOGY 2018-07-14 14:53:001.6[facility] NebfeicUYIMYQQGZC6063-53-54 14:53:000.3[facility] GfadyzaFLWMOFIALC1870-34-10 14:53:006.4[facility] SqqvywpXJERIQDMHH2540-92-87 14:53:0018.3[facility] GcusrfiSKHPWNAEMB5549-56-97 14:53:0074.8[facility] ZUQIWTEXSQ2863-58-76 14:53:000.2[facility] KrkkhvjAOKSSTPYQW7271-54-39 14:53:07742 [facility] GnrlyofOGPACVABJN1891-06-59 14:53:009.0[facility]annHEMATOLOGY 2018-07-14 14:53:00 Test Item Value Reference Range Interpretation Comments MCH (test code = MCH) 29.5 pg 27.0-31.0 [facility] XwgbndpIRAAWEVZND7205-44-37 14:53:0033.6[facility]annHEMATOLOGY 2018-07-14 14:53:0014.3[facility] WqmreicGAGLNIZDIX8489-49-98 14:53:008.9[facility] VbbgefkNBKWPBOCNM9636-18-69 14:53:0088.0[facility] UzyzywrGXFARIVJCF9547-41-93 14:53:0031.1[facility] RhirsneKOBKTVZJMH8752-27-45 14:53:0010.4[facility] YHQEHOMBEZ6550-52-50 14:53:003.53[facility] TdbdepwMBDPFLLSWX5214-33-20 14:53:00 105.0[facility] AbuumobNEPKVQEZXA7566-48-75 14:53:00Negative *NA*(07/14/18 9:53 AM) [facility] GoqbnwmHFEIYIVDMJ7783-78-40 14:53:00Non-Reactive *NA*(07/14/18 9:53 AM) [facility] DoidhotKHAZLNFAKA7377-68-83 14:53:00Negative *NA*(07/14/18 9:53 AM) [facility] BGTRBEH2308-36-23 14:53:00Negative (07/14/18 9:53 AM) [facility] NqakfdfHJTETQTELR2301-67-97 14:53:000.6[facility]annHEMATOLOGY 2018-07-14 14:53:006.7[facility] FigzwasLZLYMSOLHD4491-80-55 14:53:001.6[facility] OemngsyYXZMXILTPJ4041-31-21 14:53:000.3[facility] McywhyuTZDLIBBYXU8743-70-69 14:53:006.4[facility] DulsrfgTZFWNVDBSW6581-20-55 14:53:0018.3[facility] IWPZSACVCY2579-88-83 14:53:0074.8[facility] EzvbtfsOSJYGNWCHC2551-26-71 14:53:00 0.2[facility] GzazuyqMXIRAJIVIV0431-86-95 14:53:34746Xorsurlq HermannHEMATOLOGY 2018-07-14 14:53:009.0[facility] RskjmgzUERRVIECMS1432-33-64 14:53:00 Test Item Value Reference Range Interpretation Comments MCH (test code = MCH) 29.5 pg 27.0-31.0 [facility] YudamvySVKVQAMQHL9932-30-99 14:53:0033.6[facility]annHEMATOLOGY 2018-07-14 14:53:0014.3[facility] QcaayhrMZIJDSCCQW4256-03-27 14:53:008.9[facility] LofszajEMZCNWSEMN5979-66-98 14:53:0088.0[facility] ZffyuiqPVWTPVZBHN1560-61-97 14:53:0031.1[facility] ViklkakPHOKMEKOXB1307-16-90 14:53:0010.4[facility] OQCEPZYDTX0491-90-46 14:53:003.53[facility] NqizppvQDGREVJZXY6987-93-90 14:53:00 105.0[facility] ZhpbsenLXFBLRAKHH6527-69-27 14:53:00Negative *NA*(07/14/18 9:53 AM) [facility]zVVYCSIBHZV5169-91-87 14:53:00Non-Reactive *NA*(07/14/18 9:53 AM) [facility] SystemGeuotzgOWZQBYOIRQ4628-58-19 14:53:00Negative *NA*(07/14/18 9:53 AM) [facility]
[2022-06-17 03:25] LABS: Absolute Lymphocytes (CBC) 2.4 K/uL (0.7-4.9); Hematocrit 34.9 % (36.0-45.0); Lymphocytes % 30.3 % (15.3-44.8); MCV 85.2 fL (80-100); MPV 8.1 fL (7.6-11.3); RBC Red Blood Cell Count 4.09 M/uL (3.86-4.86)
[2022-06-17 03:26] LABS: Protime INR 1.04
[2022-06-17 04:15] LABS: ALT/SGPT 23 U/L (12-78); AST/SGOT 34 U/L (15-37); Albumin 3.4 g/dL (3.4-5.0); Alkaline Phosphatase 231 U/L (45-117); BUN Blood Urea Nitrogen 60 mg/dL (7-18); Bicarbonate 32 mmol/L (21-32); Bilirubin Total 0.3 mg/dL (0.2-1.0); Glomerular Filtration Rate 5 ml/min (=/>90); Glucose Level 98 mg/dL (74-106); Magnesium 2.5 mg/dL (1.8-2.4); NT PRO-BNP 59522 pg/mL (<125); Potassium 4.8 mmol/L (3.5-5.1); Protein, Total 8.5 g/dL (6.4-8.2); Sodium Level 136 mmol/L (136-145); Troponin High Sensitivity 30.6 pg/mL (<58.9)
[2022-06-17 04:16] LABS: Bilirubin Direct < 0.1 mg/dL (0-0.2)
[2022-06-17] MEDS ORDERED: HYDRALAZINE HCL 20 MG/ML VIAL ONE (05:13)
[2022-06-17] MEDS ORDERED: NA CHLORIDE 0.9% 250 ML ONE (06:45)
[2022-06-17] MEDS ORDERED: CEFTRIAXONE 1000 MG/VIAL ONE (06:45)
[2022-06-17] MEDS ORDERED: AZITHROMYCIN 500 MG INJ IVPB ONE (06:45)
--- NOTE | 2022-06-17 07:03 | ER ---
Nurse's Notes [facility] Name: Miguel Irwin Age: 31 yrs Sex: Female : 1990 Arrival Date: 06/17/2022 Time: 01:51 Bed 8 Private MD: Diagnosis: Other pneumonia, unspecified organism;Essential (primary) hypertension;End stage renal disease Presentation: 06/17 02:10 Chief complaint: Patient states: SOB began 30 minutes [employer]. Initial Sepsis Screen: Does kl the patient meet any 2 criteria? No. Patient's initial sepsis screen is negative. Does the patient have a suspected source of infection? No. Patient's initial sepsis screen is negative. Risk Assessment: Do you want to hurt yourself or someone else? Patient reports no desire to harm self or others. Onset of symptoms was June 17, 2022 at 01:30. 02:10 Method Of Arrival: Ambulatory kl 02:10 Acuity: CHRISTINA 3 kl 03:33 Coronavirus screen:. Ebola Screen: No symptoms or risks identified at this time. ll3 Triage Assessment: 02:15 General: Appears in no apparent distress. comfortable, Behavior is calm, cooperative. kl Pain: Denies pain. EENT: No deficits noted. Neuro: No deficits noted. Medel Agitation-Sedation Scale (RASS): 0 - Alert and Calm. Cardiovascular: No deficits noted. Heart tones S1 S2. Respiratory: No deficits noted. Reports shortness of breath at rest Airway is patent Trachea midline Respiratory effort is even, unlabored, Onset: The symptoms/episode began/occurred just prior to arrival, the patient has mild shortness of breath. GI: No deficits noted. No signs and/or symptoms were reported involving the gastrointestinal system. : No deficits noted. Derm: No deficits noted. No signs and/or symptoms reported regarding the dermatologic system. Musculoskeletal: No deficits noted. No signs and/or symptoms reported regarding the musculoskeletal system. Historical: - Allergies: 02:12 seafood; kl - Home Meds: 02:12 hydralazine 25 mg Oral tab 1 tab 2 times per day [Active]; Lopressor 50 mg Oral tab 1 kl tab 2 times per day [Active]; Seizure Medication 500 mg twice a day for Seizure Disorder [Active]; - PMHx: 02:12 Lupus erythematosus; End stage renal disease; Seizure; kl - PSHx: 02:12 Hernia repair; AV graft; kl - Social history:: Smoking status: . Screenin:16 Abuse screen: Denies threats or abuse. Nutritional screening: No deficits noted. kl Tuberculosis screening: No symptoms or risk factors identified. Fall Risk None identified. Assessment: 03:32 Reassessment: No changes from previously documented assessment. Patient and/or family ll3 updated on plan of care and expected duration. Pain level reassessed. Patient is alert, oriented x 3, equal unlabored respirations, skin warm/dry/pink. 03:33 Cardiovascular: Rhythm is sinus rhythm. ll3 05:17 Reassessment: No changes from previously documented assessment. Patient and/or family ll3 updated on plan of care and expected duration. Pain level reassessed. Patient is alert, oriented x 3, equal unlabored respirations, skin warm/dry/pink. 06:38 Reassessment: No changes from previously documented assessment. Patient and/or family ll3 updated on plan of care and expected duration. Pain level reassessed. Patient is alert, oriented x 3, equal unlabored respirations, skin warm/dry/pink. 07:47 Reassessment: Patient appears in no apparent distress at this time. Patient and/or ph family updated on plan of care and expected duration. Pain level reassessed. Patient is alert, oriented x 3, equal unlabored respirations, skin warm/dry/pink. Pt resting comfortably, awaiting lab to collect blood cultures so IV antibiotics may be administered. 08:25 Reassessment: development technical lead in ED states that 2 sets of blood cultures have already been ph received in lab. 08:40 Reassessment: Pt c/o "warm, stinging" sensation to chest and abdomen after IV ph azithromycin administration, infusion d/c. 08:52 Reassessment: Pt ambulatory to restroom. ph Vital Signs: 02:10 BP 188 / 118; Pulse 86; Resp 18; Temp 98.1(TE); Pulse Ox 94% on R/A; Weight 51.26 kg kl (R); Height 5 ft. 6 in. (167.64 cm); 03:32 BP 184 / 119; Pulse 82; Resp 17; Pulse Ox 94% on R/A; ll3 05:17 BP 167 / 110; Pulse 74; Resp 14; Pulse Ox 97% on R/A; ll3 06:38 BP 188 / 119; Pulse 79; Resp 11; Pulse Ox 98% on R/A; ll3 07:49 BP 178 / 113; Pulse 71; Resp 18; Pulse Ox 96% on R/A; ph 02:10 Body Mass Index 18.24 (51.26 kg, 167.64 cm) ED Course: 01:51 Patient arrived in ED. bp1 02:07 Kemal Mukherjee MD is Attending Physician. mh7 02:12 Triage completed. kl 03:08 XRAY Chest (1 view) In Process Unspecified. EDMS 03:13 COVID-19 SARS RT PCR (Document "Date of Onset" if Symptomatic) Sent. ll3 03:13 Influenza Screen (a \\T\\ B) Sent. ll3 03:13 Initial lab(s) drawn, by me, sent to lab. Inserted saline lock: 22 gauge in left ll3 antecubital area, using aseptic technique. Blood collected. 03:32 Arm band placed on. ll3 03:33 EKG done, by ED staff, reviewed by Kemal Mukherjee MD COVID swab sent to lab. Flu and/or ll3 RSV swab sent to lab. 03:33 Patient has correct armband on for positive identification. Placed in gown. Bed in low ll3 position. Call light in reach. Side rails up X 1. Adult w/ patient. Client placed on continuous cardiac and pulse oximetry monitoring. NIBP monitoring applied. 05:32 CT Chest Wo Con In Process Unspecified. EDMS 07:47 Camille Cuello, RN is Primary Nurse. ph 08:50 No provider procedures requiring assistance completed. ph Administered Medications: 08:48 Discontinued: AZITHromycin 500 mg IVPB once over 1 hrs; (mix in 250 mL NS) ph 05:10 Drug: hydrALAZINE 10 mg Route: IVP; Site: left antecubital; kl 08:35 Drug: AZITHromycin 500 mg Route: IVPB; Infused Over: 1 hrs; Site: left antecubital; ph 08:48 Follow up: Response: Other; IV Status: Order to discontinue infusion; Pt reports ph burning sendation to chest and abdomen, requests that medication be stopped 09:29 Drug: Rocephin (cefTRIAXone) 1 grams Route: IV; Rate: per protocol; Site: left ph antecubital; Medication: 08:50 VIS not applicable for this client. ph Intake: Outcome: 07:02 Discharge ordered by MD. ny 10:18 Patient left the ED. ph Signatures: Dispatcher [employer] Sirena Casey, Camille Sabillon RN, RN RN ph Pania[place], Brittany bp1 Holmes, Maurice, MD MD mh7 Wiley Coleman RN RN ll3
--- NOTE | 2022-06-17 07:04 | EDPHYS ---
Physician Documentation [facility] Name: Miguel Irwin Age: 31 yrs Sex: Female : 1990 Arrival Date: 06/17/2022 Time: 01:51 Bed 8 Private MD: ED Physician Kemal Mukherjee HPI: 06/17 02:20 This 31 yrs old Female presents to ER via Ambulatory with complaints of Shortness Of mh7 Breath. 02:20 The patient or guardian reports cough, that is intermittent, described as moderate, mh7 with no sputum. 02:20 Onset: The symptoms/episode began/occurred today, 1 hour(s) ago. Severity of symptoms: mh7 At their worst the symptoms were moderate, earlier today, in the emergency department the symptoms have improved, moderately. Modifying factors: The symptoms are alleviated by nothing, the symptoms are aggravated by nothing. Associated signs and symptoms: Pertinent positives: SOB, Pertinent negatives: chest pain, diarrhea, ear ache, fever, nausea, rhinorrhea, sore throat, vomiting. Historical: - Allergies: 02:12 seafood; kl - Home Meds: 02:12 hydralazine 25 mg Oral tab 1 tab 2 times per day [Active]; Lopressor 50 mg Oral tab 1 kl tab 2 times per day [Active]; Seizure Medication 500 mg twice a day for Seizure Disorder [Active]; - PMHx: 02:12 Lupus erythematosus; End stage renal disease; Seizure; kl - PSHx: 02:12 Hernia repair; AV graft; kl - Social history:: Smoking status: . ROS: 02:20 Constitutional: Negative for fever, chills, and weight loss, Eyes: Negative for injury, mh7 pain, redness, and discharge, ENT: Negative for injury, pain, and discharge, Neck: Negative for injury, pain, and swelling, Cardiovascular: Negative for chest pain, palpitations, and edema, Abdomen/GI: Negative for abdominal pain, nausea, vomiting, diarrhea, and constipation, Back: Negative for injury and pain, : Negative for injury, bleeding, discharge, and swelling, MS/Extremity: Negative for injury and deformity, Skin: Negative for injury, rash, and discoloration, Neuro: Negative for headache, weakness, numbness, tingling, and seizure, Psych: Negative for depression, anxiety, suicide ideation, homicidal ideation, and hallucinations, Allergy/Immunology: Negative for hives, rash, and allergies, Endocrine: Negative for neck swelling, polydipsia, polyuria, polyphagia, and marked weight changes, Hematologic/Lymphatic: Negative for swollen nodes, abnormal bleeding, and unusual bruising. Exam: 02:20 Constitutional: This is a well developed, well nourished patient who is awake, alert, mh7 and in no acute distress. Head/Face: Normocephalic, atraumatic. Eyes: Pupils equal round and reactive to light, extra-ocular motions intact. Lids and lashes normal. Conjunctiva and sclera are non-icteric and not injected. Cornea within normal limits. Periorbital areas with no swelling, redness, or edema. Neck: Trachea midline, no thyromegaly or masses palpated, and no cervical lymphadenopathy. Supple, full range of motion without nuchal rigidity, or vertebral point tenderness. No Meningismus. Chest/axilla: Normal chest wall appearance and motion. Nontender with no deformity. No lesions are appreciated. Cardiovascular: Regular rate and rhythm with a normal S1 and S2. No gallops, murmurs, or rubs. Normal PMI, no JVD. No pulse deficits. Respiratory: Lungs have equal breath sounds bilaterally, clear to auscultation and percussion. No rales, rhonchi or wheezes noted. No increased work of breathing, no retractions or nasal flaring. Abdomen/GI: Soft, non-tender, with normal bowel sounds. No distension or tympany. No guarding or rebound. No evidence of tenderness throughout. Back: No spinal tenderness. No costovertebral tenderness. Full range of motion. Skin: Warm, dry with normal turgor. Normal color with no rashes, no lesions, and no evidence of cellulitis. MS/ Extremity: Pulses equal, no cyanosis. Neurovascular intact. Full, normal range of motion. Neuro: Awake and alert, GCS 15, oriented to person, place, time, and situation. Cranial nerves II-XII grossly intact. Motor strength 5/5 in all extremities. Sensory grossly intact. Cerebellar exam normal. Normal gait. Psych: Awake, alert, with orientation to person, place and time. Behavior, mood, and affect are within normal limits. Vital Signs: 02:10 BP 188 / 118; Pulse 86; Resp 18; Temp 98.1(TE); Pulse Ox 94% on R/A; Weight 51.26 kg kl (R); Height 5 ft. 6 in. (167.64 cm); 03:32 BP 184 / 119; Pulse 82; Resp 17; Pulse Ox 94% on R/A; ll3 05:17 BP 167 / 110; Pulse 74; Resp 14; Pulse Ox 97% on R/A; ll3 06:38 BP 188 / 119; Pulse 79; Resp 11; Pulse Ox 98% on R/A; ll3 07:49 BP 178 / 113; Pulse 71; Resp 18; Pulse Ox 96% on R/A; ph 02:10 Body Mass Index 18.24 (51.26 kg, 167.64 cm) kl MDM: 06:56 Differential Diagnosis: Bronchitis Influenza Upper Respiratory Infection Allergic mh7 Rhinitis Asthma Exacerbation Viral Syndrome Pneumonia. Data reviewed: vital signs, nurses notes, lab test result(s), cardiac enzymes, CBC, electrolytes, Flu: negative COVID negative. Data interpreted: Pulse oximetry: on room air is 98 %. Interpretation: normal. Counseling: I had a detailed discussion with the patient and/or guardian regarding: the historical points, exam findings, and any diagnostic results supporting the discharge/admit diagnosis, the presence of at least one elevated blood pressure reading (>120/80) during this emergency department visit, lab results, radiology results. Response to treatment: the patient's symptoms have resolved after treatment, the patient's blood pressure is in an acceptable range, mental status has returned to baseline, the patient no longer shows bradycardia, the patient is not short of breath, the patient is not tachycardic, the patient's pain is gone, the patient's temperature has normalized, the patient is now symptom free. Refusal of service: The patient/guardian displays adequate decision making capability and despite a detailed discussion of alternatives, benefits, risks, and consequences refuses: Admission to the hospital for further work-up and treatment. ED course: Feels better, well appearing, NAD, VSS(bp 165/105), no focal neurological deficit. No SOB, CP, nausea, vomiting, or other complaints. Discussed test results and findings and recommended admission for further care . Patient declined admission and requested to be discharged from the ER at this time. She will follow up with her doctor. Advised to return to the ER if worsening of symptoms or any other concerns.. 07:02 Patient medically screened. [facility] 06/17 02:28 Order name: Basic Metabolic Panel; Complete Time: 04:49 [facility] 06/17 02:28 Order name: CBC with Diff; Complete Time: 04:49 [facility] 06/17 02:28 Order name: LFT's; Complete Time: 04:49 [facility] 06/17 02:28 Order name: Magnesium; Complete Time: 04:49 [facility] 06/17 02:28 Order name: NT PRO-BNP; Complete Time: 04:49 [facility] 06/17 02:28 Order name: PT-INR; Complete Time: 04:49 [facility] 06/17 02:28 Order name: Troponin HS; Complete Time: 04:49 [facility] 06/17 02:28 Order name: XRAY Chest (1 view) [facility] 06/17 02:29 Order name: COVID-19 SARS RT PCR (Document "Date of Onset" if Symptomatic); Complete [facility] Time: 04:49 06/17 02:29 Order name: Influenza Screen (a \\T\\ B); Complete Time: 04:49 [facility] 06/17 02:30 Order name: Test, Serum; Complete Time: 04:49 [facility] 06/17 04:54 Order name: CT Chest Wo Con [facility] 06/17 06:26 Order name: Blood Culture Adult (2) [facility] 06/17 02:28 Order name: EKG; Complete Time: 02:34 [facility] 06/17 02:28 Order name: Cardiac monitoring; Complete Time: 03:32 [facility] 06/17 02:28 Order name: EKG - Nurse/Tech; Complete Time: 03:32 [facility] 06/17 02:29 Order name: IV Saline Lock; Complete Time: 03:13 [facility] 06/17 02:29 Order name: Labs collected and sent; Complete Time: 03:13 [facility] 06/17 02:29 Order name: O2 Per Protocol; Complete Time: 03:13 [facility] 06/17 02:29 Order name: O2 Sat Monitoring; Complete Time: 03:13 [facility] Administered Medications: 08:48 Discontinued: AZITHromycin 500 mg IVPB once over 1 hrs; (mix in 250 mL NS) ph 05:10 Drug: hydrALAZINE 10 mg Route: IVP; Site: left antecubital; kl 08:35 Drug: AZITHromycin 500 mg Route: IVPB; Infused Over: 1 hrs; Site: left antecubital; ph 08:48 Follow up: Response: Other; IV Status: Order to discontinue infusion; Pt reports ph burning sendation to chest and abdomen, requests that medication be stopped 09:29 Drug: Rocephin (cefTRIAXone) 1 grams Route: IV; Rate: per protocol; Site: left ph antecubital; Disposition Summary: 06/17/22 07:02 Discharge Ordered Location: Home [facility] Problem: new [facility] Symptoms: have improved [facility] Condition: Stable [facility] Diagnosis - Other pneumonia, unspecified organism [facility] - Essential (primary) hypertension [facility] - End stage renal disease [facility] Followup: [facility] - With: Private Physician - When: 1 - 2 days - Reason: Worsening of condition, Recheck today's complaints, Continuance of care, Re-evaluation by your physician Discharge Instructions: - Discharge Summary Sheet [facility] - Hypertension, Adult, [id number] [facility] - Community-Acquired Pneumonia, Adult, [id number] [facility] - Chronic Kidney Disease, Adult, [id number] [facility] Forms: - Medication Reconciliation Form [facility] - Thank You Letter [facility] - Antibiotic Education [facility] - Prescription Opioid Use [facility] Prescriptions: - albuterol sulfate 90 mcg/actuation Inhalation HFA aerosol inhaler - inhale 2 puff by INHALATION route every 6 hours As needed; 1 Inhaler; Refills: [facility] 0, Product Selection Permitted - Augmentin 875-125 mg Oral Tablet - take 1 tablet by ORAL route every 12 hours for 10 days; 20 tablet; Refills: 0, rn Product Selection Permitted - Tessalon Perles 100 mg Oral Capsule - take 1 capsule by ORAL route every 8 hours As needed; 15 capsule; Refills: 0, 7 Product Selection Permitted - Zithromax Z-Oleg 250 mg Oral Tablet - take 1 tablet by ORAL route as directed for 5 days Day 1 - take two (2) tablets [facility] one time. Day 2, 3, 4 , 5 take one (1) tablet once daily.; 6 tablet; Refills: 0, Product Selection Permitted Signatures: [facility] Sirena Casey RN RN kl Hall, Patricia, RN RN ph Holmes, Maurice, MD MD [facility] Loubet, Lynsea, RN RN ll3 Corrections: (The following items were deleted from the chart) 02:44 02:42 The patient or guardian reports cough, that is intermittent, described as mh7 moderate, with no sputum, mh7
[2022-06-17] MEDS ORDERED: NA CHLORIDE 0.9% 50 ML ONE (09:33)
[2022-06-17 11:12] VITALS: TEMP 98.1
[2022-06-17 11:42] VITALS: BP 178/113; O2SAT 96
--- NOTE | 2022-06-17 13:44 | EKG ---
Test Date: 2022-06-17 Test Time: 03:16:08 Armoring Machine Operator: LL MEASUREMENT RESULTS: Intervals: Rate: 82 [place]: 174 QRSD: 88 QT: 422 QTc: 493 [place]: P: 54 [place]: 174 QRS: -26 T: 64 INTERPRETIVE STATEMENTS: Normal sinus rhythm Possible Left atrial enlargement Left ventricular hypertrophy Prolonged QT Abnormal ECG No previous ECG available for comparison Electronically Signed On 06-17-22 13:42:59 CDT by Amrik Licona
--- NOTE | 2022-06-17 14:40 | RAD REPORT ---
EXAM DESCRIPTION: RAD - Chest Single View - 06/17/2022 3:07 am CLINICAL HISTORY: 31 years Female, COUGH COMPARISON: None. TECHNIQUE: Single portable x-ray view of the chest performed on 06/17/2022 at 2:55 AM FINDINGS: The lungs are well expanded and are clear. There is no evidence of a pneumothorax. There i s an oval opacity projecting over the left mid lung possibly representing a confluence of shadows. The cardiac silhouette is prominent and likely partly accentuated by the portable technique The mediastinal contours are normal. No acute osseous abnormality is identified. No acute soft tissue abnormalities are seen. Surgical clips project over the medial right upper extre mity. Lines and tubes: None. Free air: None IMPRESSION: 1. No evidence of acute intrathoracic disease. 2. There is an oval opacity projecting over the left mid lung. This may represent a confluence of sha dows including the anterior left sixth rib and possibly left nipple. If clinical symptoms warrant, co nsider a CT of the chest without contrast for confirmation. Electronically signed by: Mary Lou Nicolas DO 06/17/2022 4:06 AM CDT Due to temporary technical issues with the PACS/Fluency reporting system, reports are being signed by the in house radiologists without review as a courtesy to insure prompt reporting. The interpreting radiologist is fully responsible for the content of the report.
--- NOTE | 2022-06-17 15:53 | RAD REPORT ---
EXAM DESCRIPTION: CT - Thorax Wo Con - 06/17/2022 6:48 am CLINICAL HISTORY: 31 years Female Cough, persistent TECHNIQUE: Axial CT imaging of the chest was performed without intravenous contrast. Sagittal and coronal reconstructed images were then performed. The CT study is performed according to ALARA (as lo w as reasonably achievable) or ALARA/IMAGE GENTLY, with automatic adjustment of mA and/or kV accordin g to patient size. Performed on: 06/17/2022 at 5:27 AM COMPARISON: Chest x-ray performed on 06/17/2022 at 2:55 AM. FINDINGS: CT CHEST: Lungs: The lungs are well-expanded. There are small patchy groundglass airspace opacities within the lungs bilaterally with greatest involvement of the lower lobes concerning for a diffuse infectious or inflammatory process. Viral pneumonia is a consideration. There are no pleural effusions. There is n o pneumothorax. Central airways are patent and are grossly unremarkable. Heart: The heart is mildly enlarged. There is no pericardial effusion. Mediastinum: The mediastinum is unremarkable. The mediastinal vessels are normal in caliber and con tour. Bones: No acute osseous abnormalities are identified. There is diffuse sclerosis of the osseous struc tures which is nonspecific but can be seen with underlying metabolic bone disease such as renal osteo dystrophy. Soft tissues: No focal soft tissue abnormalities are identified. Lymphadenopathy: No pathologic hilar, mediastinal or axillary lymphadenopathy is identified. There appear to be a few punctate calcified left hilar lymph nodes. Upper abdomen: No acute abnormalities are identified in the visualized portions of the upper abdomen. IMPRESSION: 1. Small patchy groundglass airspace opacities within the lungs bilaterally with great est involvement of the lower lobes concerning for a diffuse infectious or inflammatory process. Viral pneumonia is a consideration. 2. Mild cardiomegaly. 3. Diffuse sclerosis of the osseous structures which is nonspecific but can be seen with underlying metabolic bone disease such as renal osteodystrophy. 4. There appear to be a few punctate calcified left hilar lymph nodes. Electronically signed by: Mary Lou Nicolas DO 06/17/2022 6:03 AM CDT Due to temporary technical issues with the PACS/Fluency reporting system, reports are being signed by the in house radiologists without review as a courtesy to insure prompt reporting. The interpreting radiologist is fully responsible for the content of the report.
== END 2022-06-17 10:18 | disposition home or self-care (01) ==
LOC: ER 01:48
DX: J18.8 Other pneumonia, unspecified organism (principal); I12.0 Hypertensive chronic kidney disease with stage 5 chronic kidney disease or end stage renal disease; N18.6 End stage renal disease; Z91.013 Allergy to seafood
CPT/HCPCS: 36415; 71045; 71250; 80048; 80076; 83735; 83880; 84484; 84703; 85025; 85610; 87040; 87804; 93005; 96374; 96375; 99284; J0360; J0456; J7050; U0003